=== PATIENT | male | born 1940 | race Caucasian/White ===

== ENCOUNTER 2019-08-16 14:38 | Outpatient (CLI) | payer MEDICARE, MEDICAID, SELFPAY ==
--- NOTE | 2019-08-16 16:30 | CT_ITS ---
WS: [id number] CT of the lumbar spine, additional two-dimensional coronal and sagittal imaging was obtained. 0 Clinical Data: low back pain Comparison: Lumbar spine, 06/13/2019, MRI lumbar spine, 04/04/2019. DLP: 1674.[address] scans at [facility] use at least one of these dose optimization techniques: automat ed exposure control; mA and/or kV adjustment per patient size (includes targeted exams where dose is matched to clinical indication); or iterative reconstruction. Findings: There is a dextroscoliosis with multiple degenerative disc disease from L2-L3 to L5-S1. The re is diffuse osteoporosis. Compression fractures can be seen. There is a retrolisthesis of L4 on L5 of 0.5 cm. The transverse processes SI joints are not remarkable. Degenerative arthritic spurring of all the lumbar vertebral bodies is present. There are laminectomies from L3-L4 through L5-S1. T12-L1: No canal stenosis, disc bulge or foraminal narrowing is seen. L1-L2: There is a degenerative disc with slight bulging along with facet joint arthritis causing mild canal and foraminal stenosis. L2-L3: There is posterior osteoarthritic spurring along with facet joint arthritis causing mild canal and foraminal stenosis. L3-L4: There is posterior osteophyte formation along with facet joint hypertrophy causing mild forami nal and canal stenosis. L4-L5: There is posterior osteophyte formation causing severe foraminal stenosis along with facet usnil nt hypertrophy. L5-S1: No canal stenosis, disc bulge or foraminal narrowing is seen. CT/CT lumbar spine wo con* [id number] Impression: 1. 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 2. Loss of normal lordotic curvature with retrolisthesis of L4 on L5 of 0.5 cm. 3. Multilevel laminectomies from L3-L4 to L5-S1. 4. Multilevel degenerative disc and posterior osteoarthritis causing canal sten osis along with facet joint hypertrophy causing foraminal stenosis.
== END 2019-08-16 14:39 | disposition home or self-care (01) ==
PROVIDERS: Family Provider Nurse Practitioner; PCP Anesthesiology Pain Medicine; Visit Provider Licensed Practical Nurse
DX: M47.816 Spondylosis without myelopathy or radiculopathy, lumbar region (principal); M51.36 Other intervertebral disc degeneration, lumbar region; M81.0 Age-related osteoporosis without current pathological fracture
CPT/HCPCS: 72131; 99213

== ENCOUNTER 2019-09-10 16:37 | Emergency (ER) | payer MEDICARE, MEDICAID, SELFPAY ==
[2019-09-10 16:49] VITALS: BP 126/75; PULSE 71; RESP 16; TEMP 36.8; O2SAT 96; BMI 28.5
--- NOTE | 2019-09-10 16:52 | XR_ITS ---
WS: [id number] XR forearm RT 2V [id number] REASON FOR EXAM: fall/pain FINDINGS: A small chip fracture seen off the proximal head of the radius. The chondrocalcinosis at the wrist and degenerate changes are again seen. The shafts of the ulna and radius are normal. XR/XR forearm RT 2V [id number] IMPRESSION: Small chip fracture off the head of the radius . 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
--- NOTE | 2019-09-10 16:52 | XR_ITS ---
WS: [id number] XR hand RT min 3V* [id number] REASON FOR EXAM: fall/pain FINDINGS: Ankylosing degenerate changes in the carpal bones. Degenerate changes of the distal interphalangeal joints. Remote fracture of the fifth metacarpal. No new fractures of the wrist or hand. 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
--- NOTE | 2019-09-10 16:52 | XR_ITS ---
WS: [id number] XR wrist RT min 3V* [id number] REASON FOR EXAM: fall/pain FINDINGS: Degenerate changes through the carpal bones are seen and there is calcification along the a rticular surfaces of the ulna radius and carpal bones consistent with chondrocalcinosis. There is no definite fractures seen in the wrists. There is a remote fracture of the fifth metacarpal. There is heavy arteriosclerotic changes seen. XR/XR wrist RT min 3V* [id number] IMPRESSION: Remote fracture of the fifth metacarpal Chondrocalcinosis of the wrist. Osteoarthritic changes of the carpal bones Heavy arteriosclerotic changes.
[2019-09-10 19:56] VITALS: O2SAT 96
--- NOTE | 2019-09-10 20:10 | ED_ITS ---
HPI - Fall General: Chief Complaint: Fall Stated Complaint: RIGHT ARM PAIN Time Seen by Provider: 09/10/19 19:54 History of Present Illness: HPI Narrative: Patient comes in today for evaluation of left wrist area after suffering a fall at home. Patient recalls incident and reports tripping. Patient is kind of weak in the legs and has difficulty of ambulation. Patient denies shortness of breath or chest pain. Patient appears well. Patient appears in no pain. Review of Systems General: Reports: 10 or more systems reviewed and unremarkable except in HPI and below Musc: Reports: joint pain PFSH ED PFSH: Social History (Updated 09/10/19 @ 15:51 by Suad Martin LPN) Smoking and tobacco status: current every day smoker Alcohol intake: never Household members: significant other Marital status: Current occupational status: disabled History of recent travel: No Physical Exam Const: COMMON NORMALS: no apparent distress and oriented x3 GENERAL APPEARANCE: cooperative HENMT: COMMON NORMALS: normocephalic, external ears normal, EAC's normal, TM's normal bilaterally and external nose normal HEAD & SCALP: normal to inspection and normocephalic FACE & SINUS: normal facial exam NOSE: external nose normal GENERAL EAR: hearing not grossly impaired EXTERNAL EAR: Yes external ears normal EXTERNAL AUDITORY CANAL: EAC's normal TYMPANIC MEMBRANE: TM's normal bilaterally MOUTH: oral and palatal mucosa normal THROAT: posterior oropharynx normal Eye: COMMON NORMALS: PERRL and EOMs intact bilaterally PUPIL: Yes PERRL Neck/C-Spine: COMMON NORMALS: full ROM and no lymphadenopathy Lymph: LYMPHATIC: no lymphedema noted Chest: COMMONS NORMALS: inspection of chest normal and palpation of chest normal Resp: COMMON NORMALS: normal respiratory effort and clear to auscultation bilaterally AUSCULTATION: clear to auscultation bilaterally Cardio: COMMON NORMALS: regular rate and regular rhythm RATE: regular rate RHYTHM: regular rhythm GI: COMMON NORMALS: normal to inspection, nondistended, normoactive bowel so unds and non-tender : COMMON NORMALS: Yes no CVA tenderness BLADDER/KIDNEY EXAM: Yes no CVA tenderness Back/Pelvis: COMMON NORMALS: no CVA tenderness and thoracic and lumbar spine normal to inspection Extremity: NARRATIVE EXTREMITY EXAM: Tenderness is noted in palpation to the left wrist. Minimal swelling is noted to the wrist. No obvious deformity. GENERAL: Yes edema (minimal left wrist) Neuro: COMMON NORMALS: oriented x3, moves all extremities and no focal motor deficits Psych: COMMON NORMALS: mental status grossly normal and cooperative Skin: COMMON NORMALS: no rashes or lesions noted GENERAL SKIN EXAM: no rashes or lesions noted Course Vital Signs: Vital signs: Vital Signs Temperature 98.2 F 09/10/19 16:49 Pulse Rate 71 09/10/19 16:49 Respiratory Rate 16 09/10/19 16:49 Blood Pressure 126/75 09/10/19 16:49 Pulse Oximetry 96 09/10/19 19:56 MDM - Fall MDM Narrative: Medical decision making narrative: Patient comes in today for complaints of left wrist injury. On exam patient has no deformity. Good pulses. Prompt capillary refill distally. Patient manages movement to the wrist without much difficulty. Differential diagnosis includes sprain, fracture, dislocation. X-ray of the forearm, hand, and wrist on the left upper extremity noted no abnormality except arthritic and degenerative changes. Patient was placed in a elastic bandage for comfort. Patient was recommended to maintain normal activity. With limited use to the hand. Patient reports understanding of care plan and need for follow-up. Discharge Plan Discharge Patient Disposition: Home, Self-Care Clinical Impression: Left wrist injury Qualifiers: Encounter type: initial encounter Qualified Code(s): S69.92XA - Unspecified injury of left wrist, hand and finger(s), initial encounter Condition: Stable Prescriptions: No Action hydrochlorothiazide 50 mg tablet 50 mg PO QDAY RF: 0 nitroglycerin [Nitrostat] 0.4 mg tablet, sublingual 0.4 mg SUBLINGUAL Q5M PRNRF: 0 hydroxyzine HCl 50 mg tablet 50 mg PO .HS RF: 0 pyridoxine (vitamin B6) 50 mg capsule 50 mg PO QDAY RF: 0 tamsulosin 0.4 mg capsule 0.4 mg PO QDAY RF: 0 omeprazole 20 mg capsule,delayed release(DR/EC) 20 mg PO QDAY RF: 0 Eliquis 5 mg tablet 5 mg PO BID RF: 0 senna 8.6 mg capsule 8.6 mg PO ONCE PRNRF: 0 Spiriva with HandiHaler 18 mcg capsule, w/inhalation device 1 cap INHALATION QDAY RF: 0 potassium chloride 10 mEq capsule, extended release 10 meq PO BID RF: 0 Amitiza 24 mcg capsule 24 mcg PO BID RF: 0 fluticasone propionate [Flonase Allergy Relief] 50 mcg/actuation spray,suspension 1 spray INTRANASAL QDAY RF: 0 prednisone 10 mg tablet 10 mg PO QDAY RF: 0 oxycodone 30 mg tablet 30 mg PO TID PRNRF: 0 baclofen 20 mg tablet 20 mg PO TID PRNRF: 0 Bevespi Aerosphere 9-4.8 mcg HFA aerosol inhaler 2 puff INHALATION BID PRNRF: 0 polyethylene glycol 3350 [Miralax] 17 gram/dose powder 17 gm PO QDAY PRNRF: 0 sertraline [Zoloft] 100 mg tablet 200 mg PO DAILY Qty: 60 RF: 2 trazodone 100 mg tablet 300 mg PO .HS Qty: 90 RF: 2 quetiapine [Seroquel] 100 mg tablet 100 mg PO .QHS Qty: 30 RF: 2 amlodipine 10 mg tablet 5 mg PO QDAY Qty: 30 RF: 0 lisinopril 20 mg tablet 20 mg PO QDAY Qty: 30 RF: 0 carvedilol [Coreg] 12.5 mg tablet 12.5 mg PO BID Qty: 60 RF: 0 Discharge Orders: Discharge Order (Routine); Ordered 09/10/19 Ordered By: Augie Dey Referrals: Brisa Jensen FNP-C [Primary Care Provider] - Augie Dey FNP [Emergency Provider] - Discharge Diet: Usual diet Discharge Activity: Increase activity as tolerated Patient Instructions: Wrist Injury (ED) Activity Restrictions/Additional Instructions: Limit activity to wrist Wear elastic wrap for comfort Follow-up with primary care as needed Return to ER for worsening pain or fever Coding Level of Care Code ED Coffee Urn Attendant for Katiuska Carter
[2019-09-10 20:22] VITALS: BP 121/90; PULSE 85; RESP 17; O2SAT 97
== END 2019-09-10 20:22 | disposition home or self-care (01) ==
PROVIDERS: Emergency Provider Nurse Practitioner Family; Family Provider Nurse Practitioner; PCP Nurse Practitioner
DX: S69.92XA Unspecified injury of left wrist, hand and finger(s), initial encounter (principal); F17.200 Nicotine dependence, unspecified, uncomplicated; W01.0XXA Fall on same level from slipping, tripping and stumbling without subsequent striking against object, initial encounter; Y92.009 Unspecified place in unspecified non-institutional (private) residence as the place of occurrence of the external cause
CPT/HCPCS: 73090; 73110; 73130; 99281; 99283

== ENCOUNTER 2019-09-25 12:27 | Inpatient (IN) | payer MEDICARE, MEDICAID, SELFPAY ==
[2019-09-25] VITALS (11 sets, daily range): BP systolic 108–165; BP diastolic 51–72; PULSE 66–75; RESP 15–20; TEMP 36.6–37.4; O2SAT 92–99; BMI 24.4
--- NOTE | 2019-09-25 12:31 | XR_ITS ---
WS: [id number] XR chest 1V portable [id number] REASON FOR EXAM: cp FINDINGS: Coronary bypass changes are noted with borderline cardiomegaly. Arteriosclerotic changes in the arch of the aorta. Along the minor fissure there appears to be slight bowing now the fissures blanco ggesting low-grade atelectasis not noted previous exam May 30, 2019. There is no pneumothorax seen no pulmonary edema or pneumonia. XR/XR chest 1V portable [id number] IMPRESSION: Coronary bypass findings.
--- NOTE | 2019-09-25 12:33 | ECG_ITS ---
Measurements Intervals [place] Rate: 67 P: 56 NE: 217 QRS: 37 QRSD: 125 T: 42 QT: 457 QTc: 486 SINUS RHYTHM WITH FIRST DEGREE AV BLOCK POSSIBLE RIGHT VENTRICULAR CONDUCTION DELAY [RSR (QR) IN V1/V2] PROLONGED QT INTERVAL Compared to ECG 05/30/2019 21:45:08 Sinus bradycardia no longer present Incomplete right bundle-branch block no longer present Electronically Signed On 09-26-2019 12:41:38 CDT by Stefano Mcadams [email or web address]
--- NOTE | 2019-09-25 12:45 | W.ED.WEAKNES ---
HPI - Weakness General: Chief complaint: Weakness Stated complaint: SOB, Weakness, Cough Time Seen by Provider: 09/25/19 12:31 Source: patient and EMS Mode of arrival: EMS Limitations: altered mental status History of Present Illness: HPI Narrative: 79-year-old male is sent in him by family for generalized weakness along with cough and fever over the last week to 2 weeks. Patient is febrile here of 99.5. He does have some slight confusion. He has had a cough. Denies any vomiting or diarrhea. Denies any worsening improving factors. MD Complaint: generalized weakness Onset (ago): day(s) Associated symptoms: Denies chest pain, chills, dysuria, easy bruising, fever(s), headache(s), nausea or vomiting Review of Systems Const: Denies: fever, chills, body aches or change in appetite Eyes: Denies: blurry vision or eye discomfort ENMT: Denies: throat pain or dental pain Card: Denies: chest pain Resp: Denies: shortness of breath GI: Denies: abdominal pain, nausea, vomiting or diarrhea : Denies: painful urination Musc: Denies: neck pain or back pain Skin/Breast: Denies: rash Neuro: Denies: headache Psych: Denies: depression Jm/Lymph: Denies: easy bruising All/Imm: Denies: hives PFSH ED PFSH: Social History Smoking and tobacco status: former smoker Alcohol intake: never Household members: significant other Marital status: Current occupational status: disabled History of recent travel: No Physical Exam Const: GENERAL APPEARANCE: in distress and disheveled HENMT: COMMON NORMALS: normocephalic and head/scalp atraumatic HEAD & SCALP: normocephalic and atraumatic Eye: COMMON NORMALS: PERRL and EOMs intact bilaterally PUPIL: Yes PERRL Neck/C-Spine: COMMON NORMALS: full ROM and supple Chest: COMMONS NORMALS: inspection of chest normal and palpation of chest normal Resp: COMMON NORMALS: normal respiratory effort, no retractions, no use of accessory muscles and clear to auscultation bilaterally AUSCULTATION: clear to auscultation bilaterally Cardio: COMMON NORMALS: regular rate, regular rhythm and no murmurs RATE: regular rate RHYTHM: regular rhythm GI: COMMON NORMALS: normal to inspection, nondistended, normoactive bowel sounds, soft to palpation, non-tender and no masses PALPATION: Yes soft Extremity: COMMON NORMALS: normal to inspection and full ROM Neuro: COMMON NORMALS: moves all extremities and no focal motor deficits Psych: COMMON NORMALS: thought process normal and cooperative APPEARANCE: Yes disheveled THOUGHT PROCESS: normal thought process OTHER: confused Skin: COMMON NORMALS: no rashes or lesions noted and no wounds GENERAL SKIN EXAM: no rashes or lesions noted Course Vital Signs: Vital signs: Vital Signs Temperature 99.3 F 09/25/19 12:29 Pulse Rate 75 09/25/19 14:00 Respiratory Rate 15 09/25/19 14:00 Blood Pressure 108/55 09/25/19 14:00 Pulse Oximetry 97 09/25/19 14:00 MDM - Weakness MDM Narrative: Medical decision making narrative: Anurag presents here with generalized weakness. He also has cough and congestion but no signs of influenza or pneumonia. Patient is dehydrated as well. Spoke to hospitalist and will admit for observation for his weakness as he is unable to get up and take care of himself at this time. Lab Data: Labs: Lab Results 09/25/19 09/25/19 09/25/19 Range/Units 12:45 13:00 13:00 WBC 11.3 H (4.0-10.0) 10^3/ uL RBC 4.24 (4.1-5.3) 10^6/u L Hgb 12.3 (11.7-16.6) g/dL Hct 38.1 L (42.0-52.0) % MCV 89.9 (80-94) fL MCH 29.0 (28.0-34.0) pg MCHC 32.3 (30.0-36.0) g/dL RDW 14.8 (12.1-15.1) % Plt Count 261 (130-400) 10^3/c mm MPV 10.0 (7.4-10.4) fL Neut % (Auto) 77.4 % Lymph % (Auto) 13.6 % Tama % (Auto) 7.7 % Eos % (Auto) 0.6 % Baso % (Auto) 0.4 % Neut # (Auto) 8.8 H (1.8-7.7) 10^3/u L Lymph # (Auto) 1.5 (0.8-4.8) 10^3/u L Tama # (Auto) 0.9 (0.2-0.9) 10^3/u L Eos # (Auto) 0.1 (0.0-0.8) 10^3/u L Baso # (Auto) 0.1 (0.0-0.1) 10^3/u L Nucleated RBC % (a uto) 0 % Nucleated RBCs # 0.0 /100WBC Specimen Type Arterial Sample Site Radial, left ABG pH 7.58 H* (7.35-7.45) ABG pCO2 30.2 L (35-45) mmHg ABG pO2 61.8 L (80.0-100.0) mmH g ABG HCO3 28.1 H (22-26) mmol/L ABG Base Excess 6.5 H (-2.0-2.0) mmol/ L Ron Test Pos Hematocrit 38.7 L (42-52) % O2 Delivery Device Room air FiO2 21.0 % Supervisor Beater Room ID [email or web address] Sodium 137 (136-145) mmol/L Potassium 4.5 (3.5-5.1) mmol/L Chloride 95 L (98-107) mmol/L Carbon Dioxide 30 H (22-29) mmol/L Anion Gap 16.5 (5-19) BUN 33 H (8-23) mg/dL Creatinine 1.2 (0.7-1.2) mg/dL Glucose 142 H (65-115) mg/dL Calculated Osmolal ity 284 L (285-295) mOsm/k g Lactate (0.5-2.2) mmol/L Calcium 10.2 (8.5-10.5) mg/dL Total Bilirubin 1.0 (0.15-1.2) mg/dL AST 11 (0-40) U/L ALT 6 (0-41) U/L Alkaline Phosphata se 89 (40-130) IU/L NT-Pro-B Natriuret Pep 177 (0-450) pg/mL Total Protein 8.3 (6.6-8.7) g/dL Albumin 3.3 L (3.5-5.2) g/dL Globulin 5.0 H (1.3-4.6) g/dL Urine Color (Yellow) Urine Appearance (CLEAR) Urine pH (5-7) Ur Specific Gravit y (1.005-1.030) Urine Protein (Negative) Urine Glucose (UA) (Normal) Urine Ketones (Negative) Urine Blood (Negative) Urine Nitrate (Negative) Urine Bilirubin (NEGATIVE) Urine Urobilinogen (Negative) mg/dL Ur Leukocyte Kamini ase (Negative) Urine RBC (0-2) /hpf Urine WBC (0-5) /hpf Ur Squamous Epith Cells (0-5) Urine Bacteria (NONE) Hyaline Casts Other Casts /lpf Urine Mucus Influenza Type A A g (Negative) POC Influenza B Ag (Negative) 09/25/19 09/25/19 09/25/19 Range/Units 13:00 13:03 14:23 WBC (4.0-10.0) 10^3/ uL RBC (4.1-5.3) 10^6/u L Hgb (11.7-16.6) g/dL Hct (42.0-52.0) % MCV (80-94) fL MCH (28.0-34.0) pg MCHC (30.0-36.0) g/dL RDW (12.1-15.1) % Plt Count (130-400) 10^3/c mm MPV (7.4-10.4) fL Neut % (Auto) % Lymph % (Auto) % Tama % (Auto) % Eos % (Auto) % Baso % (Auto) % Neut # (Auto) (1.8-7.7) 10^3/u L Lymph # (Auto) (0.8-4.8) 10^3/u L Tama # (Auto) (0.2-0.9) 10^3/u L Eos # (Auto) (0.0-0.8) 10^3/u L Baso # (Auto) (0.0-0.1) 10^3/u L Nucleated RBC % (a uto) % Nucleated RBCs # /100WBC Specimen Type Sample Site ABG pH (7.35-7.45) ABG pCO2 (35-45) mmHg ABG pO2 (80.0-100.0) mmH g ABG HCO3 (22-26) mmol/L ABG Base Excess (-2.0-2.0) mmol/ L Ron Test Hematocrit (42-52) % O2 Delivery Device FiO2 % Supervisor Beater Room ID Sodium (136-145) mmol/L Potassium (3.5-5.1) mmol/L Chloride (98-107) mmol/L Carbon Dioxide (22-29) mmol/L Anion Gap (5-19) BUN (8-23) mg/dL Creatinine (0.7-1.2) mg/dL Glucose (65-115) mg/dL Calculated Osmolal ity (285-295) mOsm/k g Lactate 2.7 H (0.5-2.2) mmol/L Calcium (8.5-10.5) mg/dL Total Bilirubin (0.15-1.2) mg/dL AST (0-40) U/L ALT (0-41) U/L Alkaline Phosphata se (40-130) IU/L NT-Pro-B Natriuret Pep (0-450) pg/mL Total Protein (6.6-8.7) g/dL Albumin (3.5-5.2) g/dL Globulin (1.3-4.6) g/dL Urine Color Dark yellow (Yellow) Urine Appearance Clear (CLEAR) Urine pH 5 (5-7) Ur Specific Gravit y 1.020 (1.005-1.030) Urine Protein Neg (Negative) Urine Glucose (UA) Norm (Normal) Urine Ketones 1+ H (Negative) Urine Blood 2+ H (Negative) Urine Nitrate Negative (Negative) Urine Bilirubin 1+ H (NEGATIVE) Urine Urobilinogen 4 H (Negative) mg/dL Ur Leukocyte Kamini ase Negative (Negative) Urine RBC 10-15 H (0-2) /hpf Urine WBC 5-10 H (0-5) /hpf Ur Squamous Epith Cells 0-4 H (0-5) Urine Bacteria 2+ H (NONE) Hyaline Casts 5-10 H Other Casts 0-4 /lpf Urine Mucus Trace Influenza Type A A g Negative (Negative) POC Influenza B Ag Negative (Negative) Imaging Data^: CXR: Radiologist's impression: [address] [address] XRay Report Signed Patient: Anurag Rios Unit #: [id number] : 1940 Age/Sex: 79 / M ADM Date: 09/25/19 Loc: ER Room/Bed: Attending Dr: Ordering Provider/Ordering MD: Gaston Ruiz MD Date of Service: 09/25/19 Procedure(s): XR chest 1V portable [id number] Accession Number(s): [id number] Report Number: [id number] WS: [id number] XR chest 1V portable [id number] REASON FOR EXAM: cp FINDINGS: Coronary bypass changes are noted with borderline cardiomegaly. Arteriosclerotic changes in the arch of the aorta. Along the minor fissure there appears to be slight bowing now the fissures suggesting low-grade atelectasis not noted previous exam May 30, 2019. There is no pneumothorax seen no pulmonary edema or pneumonia. XR/XR chest 1V portable [id number] IMPRESSION: Coronary bypass findings. EKG Data^: EKG 1: Attestation: I personally reviewed and interpreted this EKG as follows: EKG interpretation date: 09/25/19 EKG interpretation time: 13:06 Interpretation: nsr hr [address] or t wave abnormalities qrs 125 qtc 473 Discharge Plan Discharge Patient Disposition: Admitted As Inpatient Clinical Impression: Generalized weakness Condition: Stable Referrals: Brisa Jensen FNP-C [Primary Care Provider] - Coding Level of Care Code ED [employer] Warden for Chg Fwd Exam Comprehensive
[2019-09-25] MEDS: sodium chloride 0.9% 1,000 ML 999 ML IV ×2 (12:53→14:28)
[2019-09-25] MEDS: acetaminophen 325 mg Tablet 650 MG PO (12:56)
[2019-09-25 12:58] LABS: ABG PCO2 30.2 mmHg (35-45); ABG PH Result 7.58 (7.35-7.45); Arterial Blood Gas Hematocrit 38.7 % (42-52); Base Excess ABG 6.5 mmol/L (-2.0-2.0); Blood Gas Allen Test Pos; Blood Gas Operator Identificat amh; Blood Gas Sample Site Radial, left; Blood Gas Sample Type Arterial; HCO3 ABG 28.1 mmol/L (22-26); Oxygen Device ROOM AIR; PO2 ABG 61.8 mmHg (80.0-100.0)
[2019-09-25 13:17] LABS: Basophils # 0.1 10^3/uL (0.0-0.1); Basophils % 0.4 %; Eosinophils # 0.1 10^3/uL (0.0-0.8); Eosinophils % 0.6 %; Hematocrit 38.1 % (42.0-52.0); Hemoglobin 12.3 g/dL (11.7-16.6); Lymphocytes # 1.5 10^3/uL (0.8-4.8); Lymphocytes % 13.6 %; Mean Corpuscular HGB Conc 32.3 g/dL (30.0-36.0); Mean Corpuscular Volume 89.9 fL (80-94); Monocytes # 0.9 10^3/uL (0.2-0.9); Monocytes % 7.7 %; Neutrophils # 8.8 10^3/uL (1.8-7.7); Neutrophils % 77.4 %; Nucleated Red Blood Cells % 0 %; Platelet Count 261 10^3/cmm (130-400); Red Blood Count 4.24 10^6/uL (4.1-5.3); Red Cell Distribution Width 14.8 % (12.1-15.1); White Blood Count 11.3 10^3/uL (4.0-10.0)
[2019-09-25 13:36] LABS: Lactate (Lactic Acid level) 2.7 mmol/L (0.5-2.2)
[2019-09-25 13:43] LABS: Alanine Aminotransferase 6 U/L (0-41); Albumin Level 3.3 g/dL (3.5-5.2); Alkaline Phosphatase 89 IU/L (40-130); Anion Gap 16.5 (5-19); Aspartate Amino Transferase 11 U/L (0-40); Blood Urea Nitrogen 33 mg/dL (8-23); Calcium 10.2 mg/dL (8.5-10.5); Carbon Dioxide 30 mmol/L (22-29); Chloride 95 mmol/L (98-107); Glucose 142 mg/dL (65-115); NT Pro B Type Natriuretic Pept 177 pg/mL (0-450); Osmolality Calculated 284 mOsm/kg (285-295); Potassium 4.5 mmol/L (3.5-5.1); Sodium 137 mmol/L (136-145); Total Protein 8.3 g/dL (6.6-8.7)
[2019-09-25 13:44] LABS: Influenza A by IFA Negative (Negative); Influenza B by IFA Negative (Negative)
[2019-09-25 14:41] LABS: Add Urine Microscopic? YES; Bilirubin Urine 1+ (NEGATIVE); Blood Urine 2+ (Negative); Glucose Urine UA Norm (Normal); Ketones Urine 1+ (Negative); Leukocyte Esterase Urine Negative (Negative); Nitrate Urine Negative (Negative); Protein Urine Neg (Negative); Urine Appearance Clear (CLEAR); Urine Color Dark Yellow (Yellow); Urobilinogen Urine 4 mg/dL (Negative); pH Urine 5 (5-7)
[2019-09-25 14:44] LABS: Bacteria Urine 2+; Mucus Urine TRACE; Squamous Epithelial Cell Urine 0-4 (0-5)
[2019-09-25 14:46] LABS: Add Urine Culture? Yes; Other Casts Urine 0-4 /lpf
--- NOTE | 2019-09-25 15:50 | CTR_ITS ---
PROCEDURE INFORMATION: Exam: CT Chest Without Contrast Exam date and time: 09/25/2019 5:17 PM Age: 79 years old Clinical indication: Abdominal tenderness; Shortness of breath; Additional info: Copd/pna TECHNIQUE: Imaging protocol: Computed tomography of the chest without contrast. Total DLP: 2596.09 mGy-cm Radiation optimization: All CT scans at this facility use at least one of these dose optimization techniques: automated exposure control; mA and/or kV adjustment per patient size (includes targeted exams where dose is matched to clinical indication); or iterative reconstruction. COMPARISON: No relevant prior studies available. FINDINGS: Limitations: Study is somewhat limited by patient motion. Lungs: There is some platelike atelectasis in the posterior right upper lobe and along the upper end of the major fissure and also some minimal platelike atelectasis in the anterior medial right middle lobe. Lungs are otherwise clear. Pleural space: Unremarkable. No pneumothorax. No pleural effusion. Heart: Sternotomy wires and mediastinal surgical clips are present, consistent with previous coronary arterial bypass grafting. Mediastinum: There is mild diffuse thickening of the esophagus which could represent esophagitis. Aorta: There are atherosclerotic changes in the aortic arch without evidence of aneurysm. Lymph nodes: Unremarkable. No enlarged lymph nodes. Bones/joints: There are degenerative changes in the thoracic spine. Soft tissues: Unremarkable. IMPRESSION: Subsegmental atelectasis. No acute finding in the chest PROCEDURE INFORMATION: Exam: CT Abdomen And Pelvis Without Contrast Exam date and time: 09/25/2019 5:17 PM Age: 79 years old Clinical indication: Abdominal tenderness; Shortness of breath; Additional info: Copd/pna TECHNIQUE: Imaging protocol: Computed tomography of the abdomen and pelvis without contrast. Total DLP: 2596.09 mGy-cm Radiation optimization: All CT scans at this facility use at least one of these dose optimization techniques: automated exposure control; mA and/or kV adjustment per patient size (includes targeted exams where dose is matched to clinical indication); or iterative reconstruction. COMPARISON: No relevant prior studies available. FINDINGS: Limitations: The absence of intravenous contrast lessens the sensitivity of this study for solid organ abnormalities. Study somewhat limited due to streak artifact created by the patient being scanned with the arms at the sides. Liver: There is no focal abnormality within the liver. Gallbladder and bile ducts: There has been a cholecystectomy. Pancreas: The pancreas is normal. Spleen: The spleen is normal. Adrenals: The adrenal glands are normal. The adrenal glands are normal. Kidneys and ureters: Focal calcification in the medial aspect of the right kidney is more likely a vascular calcification than a nonobstructing stone.There is no evidence of hydronephrosis. There is no stone along the course of either ureter. Stomach and bowel: There is a small lipoma of the duodenum. There is no evidence of colitis/diverticulitis. Appendix: Not identifiedThe aorta demonstrates moderate atherosclerotic calcification. Intraperitoneal space: Unremarkable. No free air. No significant fluid collection. Vasculature: Unremarkable. No abdominal aortic aneurysm. Lymph nodes: Unremarkable. No enlarged lymph nodes. Bladder: Unremarkable as visualized. Reproductive: The prostate gland demonstrates nonspecific parenchymal calcifications. Bones/joints: The lumbar spine demonstrates marked degenerative changes at multiple levels. There is wide laminectomy from L3 through L5. Soft tissues: Unremarkable. CT/CT chest abd pel wo con IMPRESSION: No acute abnormality. Radiation Dose CTDIVOL = (mGy): DLP = 2596.09~2596.09 (mGy-cm)
--- NOTE | 2019-09-25 16:11 | PC.NURSE ---
PATIENT ON FLOOR AND TRANSFERRED FROM [facility] [facility] TO BED. PATIENT IS UNABLE TO PROVIDE HISTORY BUT ANSWERS QUESTIONS AND FOLLOWS DIRECTIONS APPROPRIATELY. PATIENT STATES I'VE BEEN LIVING WITH THIS GIRL AND SHE TAKES CARE OF ME. PATIENT CANNOT ANSWER WHO THIS GIRL IS OR WHAT HER NAME IS.
--- NOTE | 2019-09-25 17:03 | P.HP_ITS ---
Providers/Chief Complaint Admitting Physician: Josias Busby MD Primary Care Provider: Brisa Jensen, BLIND SLAT STAPLING MACHINE OPERATOR-C Chief Complaint: SOB, Weakness, Cough History of Present Illness Anurag Rios is a 79 year old male with past medical history of CAD, CHF of diastolic type, hypertension, DVT on Eliquis, peripheral vascular disease, COPD, GERD, CVA, chronic back pain for which he is on chronic opiates, arthritis, decubitus ulcer, history of SBO in the past, CAD post CABG who was brought into the ER today because of generalized weakness. Patient is a very poor historian and I have tried calling the next of kin who is his friend/plate drying machine tender but has not been able to get in touch. As per the patient patient has been feeling generalized weakness getting worse for last 4 months. He is complaining of constipation with last bowel movement around 4 to 5 days ago along with nausea, vomiting and abdominal pain. He states he is not able to eat anything. He is also complaining of cough without any expectoration but denies any fever, headache, palpitations, shortness of breath. He states he thinks he is swollen all over his body. Review of Systems General: Reports: ROS unobtainable due to mental status Medications/Allergies Home Medications Medication Instructions Recorded Confirmed Last Taken Type Seroquel 100 mg PO BEDTIME 09/25/19 09/25/19 09/24/19 History albuterol sulfate [ProAir HFA] 2 puff INHALATION QID PRN 09/25/19 09/25/19 Unknown History amlodipine 10 mg PO DAILY 09/25/19 09/25/19 09/24/19 History furosemide [Lasix] 40 mg PO BID 09/25/19 09/25/19 Unknown History lisinopril 20 mg PO DAILY 09/25/19 09/25/19 09/24/19 History multivitamin [Multiple Vitamins] 1 tab PO DAILY 09/25/19 09/25/19 Unknown History trazodone 300 mg PO BEDTIME PRN 09/25/19 09/25/19 09/24/19 History Allergies Allergy/AdvReac Type Severity Reaction Status Date / Time hydromorphone Allergy Mild hives Verified 09/10/19 15:46 PFSH Acute PFSH: Medical History CAD (coronary artery disease) Chronic prescription opiate use Diastolic heart failure DVT (deep venous thrombosis) Generalized anxiety disorder Hx of cervical spinal arthrodesis Hypertension Intervertebral disc disorder with radiculopathy of lumbosacral region Lumbar stenosis with neurogenic claudication Major depressive disorder, recurrent severe without psychotic features Peripheral vascular disease Sleep apnea, unspecified Unspecified dementia without behavioral disturbance Surgical History History of cervical spinal surgery [facility] C6-C7 laminectomy/fusion/fixation History of heart bypass surgery (~2007) History of hernia surgery 4x History of lumbar surgery [facility]. L3-L4, L4-L5, L5-S1 decompression Hx of CABG Hx of cholecystectomy Social History Smoking and tobacco status: former smoker Alcohol intake: never Household members: significant other Marital status: Current occupational status: disabled History of recent travel: No Vitals/I&O/Wt Last Vital Signs Temp 97.8 F 09/25/19 16:07 Pulse 66 09/25/19 16:07 Resp 18 09/25/19 16:07 BP 136/72 09/25/19 16:07 Pulse Ox 97 09/25/19 16:07 09/25/19 09/25/19 09/25/19 06:59 14:59 22:59 Intake Total 1000 / 1000 Balance 1000 / 1000 Weight last 48 hrs Weight 81.647 kg Physical Exam Narrative: EXAM NARRATIVE: General: No acute distress, AO x2, dehydrated HEENT: PERRLA, pupils bilaterally equal and reactive Chest: Normal vesicular breath sounds, no added sounds, equal good air entry bilaterally CVS: S1-S2 regular, no murmurs, no tachycardia, no gallops, no rubs Abdomen: No pallor no icterus tender in right lower quadrant, guarding present, no rebound tenderness, bowel sounds sluggish, no organomegaly. Neuro: No focal deficits, no facial deformity, AO x3, power 5/5 in all limbs Data : 09/25/19 13:00 09/25/19 13:00 Micro: Microbiology 09/25/19 13:00 Blood Culture - Preliminary Blood SPECIMEN COLLECTED 09/25/19 13:05 Blood Culture - Preliminary Blood SPECIMEN COLLECTED A&P Assessment and plan (1) Generalized weakness: Status: Acute Code(s): R53.1 - Weakness (2) CAD (coronary artery disease): Status: Acute Code(s): I25.10 - Atherosclerotic heart disease of [place] coronary artery without angina pectoris (3) Diastolic heart failure: Status: Acute Code(s): I50.30 - Unspecified diastolic (congestive) heart failure (4) DVT (deep venous thrombosis): Status: Acute Code(s): I82.409 - Acute embolism and thrombosis of unspecified deep veins of unspecified lower extremity (5) Hypertension: Status: Acute Code(s): I10 - Essential (primary) hypertension (6) Peripheral vascular disease: Status: Acute Code(s): I73.9 - Peripheral vascular disease, unspecified (7) Chronic prescription opiate use: Status: Acute Code(s): Z79.891 - 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 (8) Unspecified dementia without behavioral disturbance: Status: Acute Code(s): F03.90 - Unspecified dementia without behavioral disturbance (9) Major depressive disorder, recurrent severe without psychotic features: Status: Acute Code(s): F33.2 - Major depressive disorder, recurrent severe without psychotic features (10) SBO (small bowel obstruction): Status: Acute Code(s): K56.609 - Unspecified intestinal obstruction, unspecified as to partial versus complete obstruction Additional A&P Information Generalized weakness: Most likely due to poor oral intake as evident from general examination and his labs which are concerning for elevated BUN, decreased chloride and elevated bicarb levels. Patient has been afebrile since admission, mild leukocytosis of 11,000, urinalysis is benign, flu is negative. Check procalcitonin, CT chest to rule out any consolidation, CT abdomen pelvis to rule out SBO, TSH, blood cultures. We will hold off on giving any antibiotics for now. Patient was given on 3 L IV fluids in the ER. We will start normal saline at 50 cc/h. Diastolic heart failure: Last echo in 2018 shows an EF of 66% with no other WMA with grade 1 diastolic dysfunction, trace AR, trace MR, moderate LVH. Patient looks a little dehydrated right now, proBNP 177. Normal saline at 50 cc/h. Hold diuretics for now. CAD: Post CABG: Continue carvedilol at home dose. Hypertension: Blood pressure well maintained right now. Patient takes lisinopril along with carvedilol and Lasix at home. As stated above we will continue carvedilol to avoid refractory tachycardia but will hold off on lisinopril right now. Can reintroduce as per the blood pressure monitoring. Chronic opiate use: As per the chart patient has a pain management doctor. As per the chart he takes 30 to 60 mg oxycodone IR every 4 to every 6 hours as needed. To avoid withdrawal we will keep him on oxycodone 30 mg every 6 hours for now. History of DVT: Patient is on Eliquis. We will have to confirm with a plate drying machine tender when was it started and how long ago was restarted. Lower limb Dopplers to rule out DVT for now. Continue chronic medications like Seroquel and sertraline for now. We will change medications as per the clinical course and results of the examinations. PT evaluation. N.p.o. except meds for now DNR/DNI as per the old records. Eliquis will also work for DVT prophylaxis. Dispol: Most likely SNF placement given severe generalized weakness. Attestations Medical Necessity Statement*: Generalized weakness under evaluation. Admission for more than 2 midnights. Time Spent in Patient Care: Greater than 35 minutes Coding Level of Care Code Acute Document Management Specialist for [facility] Fwd Diagnoses Generalized weakness R53.1 CAD (coronary artery disease) I25.10 Diastolic heart failure I50.30 DVT (deep venous thrombosis) I82.409 Hypertension I10 Peripheral vascular disease I73.9 Chronic prescription opiate use Z79.891 Unspecified dementia without behavioral disturbance F03.90 Major depressive disorder, recurrent severe without psychotic features F33.2 SBO (small bowel obstruction) K56.609
[2019-09-25 17:24] LABS: Procalcitonin 0.14 ng/mL (0-0.5)
[2019-09-25 17:37] LABS: Iron 20 ug/dL (59-158); Percent Saturation 9.2 % (20-50); Total Iron Binding Capacity 217 mcg/dl; Unsaturated Iron Binding 197 ug/dL (112-347)
[2019-09-25] MEDS: sodium chloride 0.9% 1,000 ML 75 ML IV (18:20)
[2019-09-25] MEDS: famotidine 20 mg/2 mL INJ IVP (18:20)
[2019-09-25] MEDS: apixaban 5 mg Tablet PO (18:21)
[2019-09-25] MEDS: carvedilol 12.5 mg Tablet PO (18:22)
[2019-09-25 18:53] LABS: Amphetamines Screen Urine Negative (Negative); Barbiturates Screen Urine Negative (Negative); Benzodiazepines Screen Urine Negative (Negative); Cocaine Screen Urine Negative (Negative); Opiate Screen Urine Negative (Negative); PCP Screen Urine Positive (Negative); THC Screen Urine Negative (Negative)
[2019-09-25] MEDS: oxyCODONE IR 30 mg Tablet PO (19:32)
--- NOTE | 2019-09-25 19:38 | PC.NURSE ---
Addendum entered by Yenifer Guillermo 09/25/19 19:54: pts partner/caregiver states- pt fell approximately 3 weeks ago, pt came to [facility] [place] to get XRay. XRay showed crack or chip, she is not sure. due to pts lack of mobility and caregiver not being able to get pt around she could not bring him back again to get it taken care of. Original Note: pts partner/caregiver states the following -pt would like to be a DNR as he has expressed to her in the past and as per old records -pt took eliquis last night and has taken eliquis for years. -depending on how mobile pt is once he gets better he may or may not have to go to a half-way. - pts altered mental status comes and goes, sometimes AMS last for days, sometimes he is okay for days.
[2019-09-25] MEDS: ipratropium-albuterol 3 mL Neb INHALATION (20:57)
[2019-09-25] MEDS: budesonide 0.5 mg/2 mL Neb INHALATION (20:57)
[2019-09-25] MEDS: lactulose oral liq 20 gm/30 mL UDC 10 GM PO (22:13)
[2019-09-25] MEDS: quetiapine 100 mg Tablet PO (22:14)
[2019-09-25] MEDS: polyethylene glycol 3350 Pkt 17 gm PO (22:14)
[2019-09-25] MEDS: pneumococcal (23 valent) SDV 0.5 mL IM (22:15)
[2019-09-26] VITALS (15 sets, daily range): BP systolic 112–144; BP diastolic 62–80; PULSE 64–75; RESP 17–18; TEMP 36.8–37.6; O2SAT 92–97
[2019-09-26] MEDS: ipratropium-albuterol 3 mL Neb INHALATION ×4 (02:55→21:54)
[2019-09-26] MEDS: sodium chloride 0.9% 1,000 ML 75 ML IV ×2 (06:07→19:39)
[2019-09-26] MEDS: famotidine 20 mg/2 mL INJ IVP ×2 (06:07→16:31)
[2019-09-26 07:37] LABS: Basophils % 0.3 %; Eosinophils # 0.2 10^3/uL (0.0-0.8); Eosinophils % 2.2 %; Hematocrit 35.5 % (42.0-52.0); Hemoglobin 11.1 g/dL (11.7-16.6); Lymphocytes # 1.5 10^3/uL (0.8-4.8); Lymphocytes % 16.4 %; Mean Corpuscular HGB Conc 31.3 g/dL (30.0-36.0); Mean Corpuscular Volume 92.7 fL (80-94); Mean Platelet Volume 9.9 fL (7.4-10.4); Monocytes # 0.9 10^3/uL (0.2-0.9); Monocytes % 9.6 %; Neutrophils # 6.5 10^3/uL (1.8-7.7); Neutrophils % 71.2 %; Nucleated Red Blood Cells % 0 %; Platelet Count 232 10^3/cmm (130-400); Red Blood Count 3.83 10^6/uL (4.1-5.3); Red Cell Distribution Width 14.9 % (12.1-15.1); White Blood Count 9.2 10^3/uL (4.0-10.0)
[2019-09-26] MEDS: oxyCODONE IR 30 mg Tablet PO ×2 (07:51→17:12)
[2019-09-26] MEDS: ondansetron 2 mg/ML SDV 2 mL 4 MG IVP (07:51)
[2019-09-26 07:52] LABS: Alanine Aminotransferase < 5 U/L (0-41); Albumin Level 3.3 g/dL (3.5-5.2); Alkaline Phosphatase 76 IU/L (40-130); Aspartate Amino Transferase 12 U/L (0-40); Blood Urea Nitrogen 26 mg/dL (8-23); Calcium 9.9 mg/dL (8.5-10.5); Carbon Dioxide 27 mmol/L (22-29); Chloride 102 mmol/L (98-107); Glucose 163 mg/dL (65-115); Osmolality Calculated 290 mOsm/kg (285-295); Sodium 140 mmol/L (136-145); Total Bilirubin 0.7 mg/dL (0.15-1.2); Total Protein 7.3 g/dL (6.6-8.7)
[2019-09-26] MEDS: budesonide 0.5 mg/2 mL Neb INHALATION ×2 (09:26→21:54)
[2019-09-26] MEDS: apixaban 5 mg Tablet PO ×2 (09:28→17:13)
[2019-09-26] MEDS: sertraline 100 mg Tablet 200 MG PO (09:28)
[2019-09-26] MEDS: carvedilol 12.5 mg Tablet PO ×2 (09:28→17:13)
[2019-09-26] MEDS: lactulose oral liq 20 gm/30 mL UDC 10 GM PO (12:15)
[2019-09-26] MEDS: polyethylene glycol 3350 Pkt 17 gm PO (12:16)
--- NOTE | 2019-09-26 16:18 | PM.PN ---
Subjective Subjective: Interval history: No acute events overnight. Labs noted. On examination today patient is a lot more comfortable, alert and conversive. Complaining of pain in his right lower abdomen states he has not had bowel movements for last 1 week. Bowel regimen was given yesterday still patient did not have any bowel movements. He denies of having any nausea, vomiting, headache, dizziness, palpitations. Vitals/I&O/Wt Last Vital Signs Temp 99.6 F 09/26/19 15:23 Pulse 68 09/26/19 15:56 Resp 18 09/26/19 15:56 BP 134/69 09/26/19 15:23 Pulse Ox 96 09/26/19 15:56 09/26/19 09/26/19 09/26/19 06:59 14:59 22:59 Intake Total 883.75 / 1883.75 840 / 840 Output Total 580 / 780 450 / 450 Balance 303.75 / 1103.75 390 / 390 Weight last 48 hrs Weight 93.695 kg Weight 81.647 kg Physical Exam Narrative: EXAM NARRATIVE: General: No acute distress, AO x2, dehydrated HEENT: PERRLA, pupils bilaterally equal and reactive Chest: Normal vesicular breath sounds, no added sounds, equal good air entry bilaterally CVS: S1-S2 regular, no murmurs, no tachycardia, no gallops, no rubs Abdomen: No pallor no icterus tender in right lower quadrant, guarding present, no rebound tenderness, bowel sounds sluggish, no organomegaly. Neuro: No focal deficits, no facial deformity, AO x3, power 5/5 in all limbs Data : 09/26/19 07:25 09/26/19 07:25 Micro: Microbiology 09/25/19 13:05 Blood Culture - Preliminary Blood NEGATIVE TO DATE 09/25/19 13:00 Blood Culture - Preliminary Blood NEGATIVE TO DATE 09/26/19 00:35 MRSA Culture - Final Nose 09/25/19 14:23 Legionella Urinary Antigen - Final Urine,Clean Catch A&P Assessment and plan (1) Generalized weakness: Status: Acute Code(s): R53.1 - Weakness (2) CAD (coronary artery disease): Status: Acute Code(s): I25.10 - Atherosclerotic heart disease of [place] coronary artery without angina pectoris (3) Diastolic heart failure: Status: Acute Code(s): I50.30 - Unspecified diastolic (congestive) heart failure (4) DVT (deep venous thrombosis): Status: Acute Code(s): I82.409 - Acute embolism and thrombosis of unspecified deep veins of unspecified lower extremity (5) Hypertension: Status: Acute Code(s): I10 - Essential (primary) hypertension (6) Peripheral vascular disease: Status: Acute Code(s): I73.9 - Peripheral vascular disease, unspecified (7) Chronic prescription opiate use: Status: Acute Code(s): Z79.891 - detention (current) use of opiate analgesic (8) Unspecified dementia without behavioral disturbance: Status: Acute Code(s): F03.90 - Unspecified dementia without behavioral disturbance (9) Major depressive disorder, recurrent severe without psychotic features: Status: Acute Code(s): F33.2 - Major depressive disorder, recurrent severe without psychotic features (10) SBO (small bowel obstruction): Status: Acute Code(s): K56.609 - Unspecified intestinal obstruction, unspecified as to partial versus complete obstruction Additional A&P Information Generalized weakness: Most likely due to poor oral intake as evident from general examination and his labs which are concerning for elevated BUN, decreased chloride and elevated bicarb levels. Patient has been afebrile since admission, mild leukocytosis of 11,000, urinalysis is benign, flu is negative. Procalcitonin, CT chest abdomen pelvis results appreciated. Continue with IV fluids at 50 cc/h. As patient has remained afebrile, normal procalcitonin, no leukocytosis we will hold off on antibiotics. Follow-up with culture results. Diastolic heart failure: Last echo in 2018 shows an EF of 66% with no other WMA with grade 1 diastolic dysfunction, trace AR, trace MR, moderate LVH. Patient looks a little dehydrated right now, proBNP 177. Continue with normal saline at 50 cc/h. Hold diuretics for now. CAD: Post CABG: Continue carvedilol at home dose. Hypertension: Blood pressure well maintained right now. Patient takes lisinopril along with carvedilol and Lasix at home. Continue holding lisinopril and amlodipine. Chronic opiate use: As per the chart patient has a pain management doctor. As per the chart he takes 30 to 60 mg oxycodone IR every 4 to every 6 hours as needed. To avoid withdrawal we will keep him on oxycodone 30 mg every 6 hours for now. History of DVT: Patient is on Eliquis. We will have to confirm with a caretaker resort when was it started and how long ago was restarted. Lower limb Dopplers to rule out DVT for now. Continue chronic medications like Seroquel and sertraline for now. We will change medications as per the clinical course and results of the examinations. PT evaluation. Continue with cardiac diet. Patient is tolerating well. 1 more dose of lactulose, MiraLAX. If patient does not have any bowel movements by afternoon we will do Fleet enema. DNR/DNI as per the old records. Eliquis will also work for DVT prophylaxis. Dispol: Question detail with patient regarding need of SNF placement. He states he would rather go home as he has a caretaker resort who lives with him 30/01. Can plan to discharge him home with caretaker resort. Attestations Medical Necessity Statement*: generalized weakness. Time Spent in Patient Care: Greater than 35 minutes Coding Level of Care Code Acute Cutting And Splicing Supervisor for [facility] Fwd Diagnoses Generalized weakness R53.1 CAD (coronary artery disease) I25.10 Diastolic heart failure I50.30 DVT (deep venous thrombosis) I82.409 Hypertension I10 Peripheral vascular disease I73.9 Chronic prescription opiate use Z79.891 Unspecified dementia without behavioral disturbance F03.90 Major depressive disorder, recurrent severe without psychotic features F33.2 SBO (small bowel obstruction) K56.609
--- NOTE | 2019-09-26 16:22 | USCV_ITS ---
Anurag Rios Age: 79 Gender: M : 1940 Exam Date: 09/26/2019 16:43 Ordering Phys: Josias Busby MD Technologist: Janay Carmen Exam Location: [facility] [place] Indication: r/o DVT HISTORY: R/O DVT. PROCEDURES: Examined bilaterally were the greater saphenous, common femoral, femoral, profunda, popliteal, posterior tibial veins, and peroneal trunk.. FINDINGS: All veins examined appear free of thrombus. No filling defects on color Doppler flow analysis. Vein flow and caliber vary with respiration. Increase in venous flow with augmentation. All veins appear compressible Bilateral Nunez's cysts noted. Right GSV removed for CABG. CONCLUSIONS No evidence of right lower extremity DVT. No evidence of left lower extremity DVT. Bilateral Bakers cysts partially visualized Omar Gutierrez MD (Electronically Signed) Final Date: 27 September 2019 16:41 S
[2019-09-26] MEDS: Fleet Enema 133 mL Enema PR (17:15)
--- NOTE | 2019-09-26 17:54 | CTR_ITS ---
PROCEDURE INFORMATION: Exam: CT Lumbar Spine Without Contrast Exam date and time: 09/26/2019 6:28 PM Age: 79 years old Clinical indication: Low back pain; Additional info: R/O discitis TECHNIQUE: Imaging protocol: Computed tomography images of the lumbar spine without contrast. Total DLP: 2558.83 mGy-cm Radiation optimization: All CT scans at this facility use at least one of these dose optimization techniques: automated exposure control; mA and/or kV adjustment per patient size (includes targeted exams where dose is matched to clinical indication); or iterative reconstruction. COMPARISON: CT lumbar spine wo con* [id number] 08/16/2019 2:53 PM FINDINGS: Vertebrae: No anterior wedging deformity. No acute lucent fracture lines are visualized. There is sacralization of the L5 vertebra. Diffuse degenerative endplate changes are seen at the lower thoracic and lumbar levels, except at L5-S1, where disc height is preserved. There is right convexity of the upper lumbar spine. Discs/Spinal canal/Neural foramina: No severe central canal stenosis is demonstrated by CT. Neural foraminal stenosis is most pronounced at the L4-L5 level, severe on the left and moderate to severe on the right at this level. Dorsal decompression is noted at the lower lumbar levels. Other findings: There are no CT findings to indicate discitis-osteomyelitis. CT/CT lumbar spine wo con* [id number] IMPRESSION: 1. Degenerative changes of the lumbar spine, as above. 2. No CT findings to indicate discitis-osteomyelitis. Radiation Dose CTDIVOL = (mGy): DLP = 2558.83 (mGy-cm)
--- NOTE | 2019-09-26 17:54 | CTR_ITS ---
PROCEDURE INFORMATION: Exam: CT Thoracic Spine Without Contrast Exam date and time: 09/26/2019 6:28 PM Age: 79 years old Clinical indication: Pain in thoracic spine; Additional info: R/O discitis TECHNIQUE: Imaging protocol: Computed tomography images of the thoracic spine without contrast. Total DLP: 2558.83 mGy-cm Radiation optimization: All CT scans at this facility use at least one of these dose optimization techniques: automated exposure control; mA and/or kV adjustment per patient size (includes targeted exams where dose is matched to clinical indication); or iterative reconstruction. COMPARISON: No relevant prior studies available. FINDINGS: Vertebrae: No destructive osseous lesions are identified. There are no findings to indicate a discitis-osteomyelitis. There are no anterior wedging deformities. No acute lucent fracture lines are visualized. Discs/Spinal canal/Neural foramina: There is moderate bilateral neural foraminal stenosis at T1-2. No severe central canal or neural foraminal stenosis demonstrated by CT. CT/CT thoracic spin wo con* [id number] IMPRESSION: No CT findings of discitis-osteomyelitis. Radiation Dose CTDIVOL = (mGy): DLP = 2558.83 (mGy-cm)
--- NOTE | 2019-09-26 18:03 | PC.PHAR ---
VANCOMYCIN 1500 MG Q 12 H PER PHARMACY PROTOCOL Pharmacokinetic dosing service Date: Time: Objective: Patient: Floor: Age: 79 yo Serum creatinine: 0.8 mg/dL Height: 72.0 Inches Weight (kg): 94 Assessment: IBW (kg): 77.60 Dosing wt(kg): 94 Estimated Creatinine clearance (ml/min): 86.2 CRCL method: Cockcroft and Gault using adjusted body weight Drug selected: Vancomycin Loading dose (mg): Vd (liters): 65.8 (factor used: 0.7 L/kg) Scottie (hr-1): 0.076 Half life (hrs): 9.12 CLvanco= 5.001 L/hr Recommended dose: 1500 mg Interval: 12 hrs Infusion time (hrs): 1 Predicted peak (mcg/mL): 36.7 Predicted trough (mcg/mL): 15.91 Total body weight is being used for vancomycin dosing. Recommendations: Give Vancomycin 1500 mg q 12 hrs with an expected Cpeak of 36.7 mcg/ml and an expected Ctrough of 15.91 mcg/ml Thank you for the consult, will continue to follow.
[2019-09-26] MEDS: quetiapine 100 mg Tablet PO (21:54)
[2019-09-27] VITALS (17 sets, daily range): BP systolic 119–150; BP diastolic 57–80; PULSE 61–90; RESP 15–20; TEMP 36.6–37.4; O2SAT 90–95
[2019-09-27] MEDS: oxyCODONE IR 30 mg Tablet PO ×3 (01:44→17:38)
[2019-09-27] MEDS: ipratropium-albuterol 3 mL Neb INHALATION ×4 (02:04→21:33)
[2019-09-27] MEDS: famotidine 20 mg/2 mL INJ IVP ×2 (04:29→15:17)
[2019-09-27 06:04] LABS: Basophils # 0.1 10^3/uL (0.0-0.1); Basophils % 0.8 %; Eosinophils # 0.4 10^3/uL (0.0-0.8); Hematocrit 33.6 % (42.0-52.0); Hemoglobin 10.1 g/dL (11.7-16.6); Lymphocytes # 2.1 10^3/uL (0.8-4.8); Mean Corpuscular HGB Conc 30.1 g/dL (30.0-36.0); Mean Corpuscular Hemoglobin 29.1 pg (28.0-34.0); Mean Corpuscular Volume 96.8 fL (80-94); Mean Platelet Volume 10.1 fL (7.4-10.4); Monocytes # 0.8 10^3/uL (0.2-0.9); Monocytes % 9.8 %; Neutrophils # 4.5 10^3/uL (1.8-7.7); Neutrophils % 57.3 %; Nucleated Red Blood Cells % 0 %; Platelet Count 210 10^3/cmm (130-400); Red Blood Count 3.47 10^6/uL (4.1-5.3); Red Cell Distribution Width 14.4 % (12.1-15.1); White Blood Count 7.8 10^3/uL (4.0-10.0)
[2019-09-27 06:21] LABS: Alanine Aminotransferase 9 U/L (0-41); Albumin Level 2.6 g/dL (3.5-5.2); Alkaline Phosphatase 64 IU/L (40-130); Anion Gap 11.8 (5-19); Aspartate Amino Transferase 20 U/L (0-40); Blood Urea Nitrogen 10 mg/dL (8-23); Calcium 9.1 mg/dL (8.5-10.5); Carbon Dioxide 26 mmol/L (22-29); Chloride 103 mmol/L (98-107); Globulin 4.1 g/dL (1.3-4.6); Glucose 123 mg/dL (65-115); Osmolality Calculated 281 mOsm/kg (285-295); Potassium 3.8 mmol/L (3.5-5.1); Sodium 137 mmol/L (136-145); Total Bilirubin 0.5 mg/dL (0.15-1.2); Total Protein 6.7 g/dL (6.6-8.7)
[2019-09-27] MEDS: carvedilol 12.5 mg Tablet PO ×2 (09:09→17:39)
[2019-09-27] MEDS: apixaban 5 mg Tablet PO ×2 (09:09→17:39)
[2019-09-27] MEDS: sertraline 100 mg Tablet 200 MG PO (09:09)
[2019-09-27] MEDS: budesonide 0.5 mg/2 mL Neb INHALATION ×2 (09:40→21:33)
--- NOTE | 2019-09-27 10:35 | PC.RESP ---
Patient does not have a qualifying hx of lung disease at this time.
--- NOTE | 2019-09-27 12:19 | PC.CHAP ---
Pastoral Care Encounter/Spiritual Assessment Type of Contact [] Declined angular developer visit [] Patient/Family/Request visit [] Outpatient visit [] Follow-up visit [] Physician referral [] Code/Alert [x] Routine visit [] Staff referral [] Actively dying [] Patient sleeping [] Family support [] [] Out of room [] Palliative care [] [x] Receiving care in room [] Pre-surgical visit [] Trauma [] Long length of stay [] ICU visit [] Other: Relational/Emotional Strength [x] Patient feels connected with others/family/visitors/staff [] Distress [] Loneliness/isolation [] Abandonment Spirituality of Patient [x] Person of Vanna [] Attends Adventist of their Vanna [x] Believes in Prayer [] Reads Bible or Buddhism materials [] There are Spiritual issues to be addressed Nutrition Aide Interventions [x] Prayer [x] Active listening [x] Non-anxious presence [x] Spiritual/emotional support [] Crisis/trauma care [x] Spiritual counseling [] Bereavement support [] Provided bereavement packet [] Provided Bible/devotional materials [] Provided toy/stuffed animal, coloring book to patient or family member [] Provided Communion [] Anointing/[place]can [] Salvation [x] Completed spiritual assessment [] Other: Impact on Illness or Injury [] Angry [] Fearful [] Anxious [] Often cries [] Exhaustion [x] Unable to work [] Unable to attend pentecostalism [] Unable to walk/stand [] Unable to read [] Unable to drive [] Unable to eat/drink [] Unable to sleep [] Unable to be with family [] Patient intubated [] Other: Summary Lots of health problems, not sure about health? Time spent with patient 10 mins
--- NOTE | 2019-09-27 15:26 | PM.PN ---
Subjective Subjective: Interval history: No acute events overnight. Labs noted. On examination today patient is a lot more comfortable, alert and conversive. Patient did have a good bowel movement yesterday after bowel regimen. Did not require any Fleet enema. He denies of having any nausea, vomiting, headache, dizziness, palpitations. . Blood cultures concerning for Gram-positive cocci from admission Vitals/I&O/Wt Last Vital Signs Temp 98.9 F 09/27/19 15:25 Pulse 67 09/27/19 15:25 Resp 18 09/27/19 15:25 BP 125/65 09/27/19 15:25 Pulse Ox 91 09/27/19 15:25 09/27/19 09/27/19 09/27/19 06:59 14:59 22:59 Intake Total 1730 / 1730 Output Total 250 / 700 275 / 275 Balance -250 / 1870 1455 / 1455 Weight last 48 hrs Weight 94.517 kg Weight 93.695 kg Physical Exam Narrative: EXAM NARRATIVE: General: No acute distress, AO x2, dehydrated HEENT: PERRLA, pupils bilaterally equal and reactive Chest: Normal vesicular breath sounds, no added sounds, equal good air entry bilaterally CVS: S1-S2 regular, no murmurs, no tachycardia, no gallops, no rubs Abdomen: No pallor no icterus tender in right lower quadrant, guarding present, no rebound tenderness, bowel sounds sluggish, no organomegaly. Neuro: No focal deficits, no facial deformity, AO x3, power 5/5 in all limbs Data : 09/27/19 05:52 09/27/19 05:52 Micro: Microbiology 09/25/19 14:23 Urine Culture - Preliminary Urine,Clean Catch 09/25/19 13:05 Blood Culture - Preliminary Blood Coagulase negativ staphylococc 09/25/19 13:00 Blood Culture - Preliminary Blood Coagulase negativ staphylococc 09/26/19 19:12 Blood Culture - Preliminary Blood SPECIMEN COLLECTED 09/26/19 19:08 Blood Culture - Preliminary Blood SPECIMEN COLLECTED 09/26/19 00:35 MRSA Culture - Final Nose A&P Assessment and plan (1) Gram-positive bacteremia: Status: Acute Code(s): R78.81 - Bacteremia (2) Generalized weakness: Status: Acute Code(s): R53.1 - Weakness (3) CAD (coronary artery disease): Status: Acute Code(s): I25.10 - Atherosclerotic heart disease of [place] coronary artery without angina pectoris (4) Diastolic heart failure: Status: Acute Code(s): I50.30 - Unspecified diastolic (congestive) heart failure (5) DVT (deep venous thrombosis): Status: Acute Code(s): I82.409 - Acute embolism and thrombosis of unspecified deep veins of unspecified lower extremity (6) Hypertension: Status: Acute Code(s): I10 - Essential (primary) hypertension (7) Peripheral vascular disease: Status: Acute Code(s): I73.9 - Peripheral vascular disease, unspecified (8) Chronic prescription opiate use: Status: Acute Code(s): Z79.891 - instructor dancing (current) use of opiate analgesic (9) Unspecified dementia without behavioral disturbance: Status: Acute Code(s): F03.90 - Unspecified dementia without behavioral disturbance (10) Major depressive disorder, recurrent severe without psychotic features: Status: Acute Code(s): F33.2 - Major depressive disorder, recurrent severe without psychotic features (11) Constipation: Status: Acute Code(s): K59.00 - Constipation, unspecified Additional A&P Information Gram-positive bacteremia: Blood cultures from admission now positive for gram-positive cocci: Continue with vancomycin renally dosed which started yesterday. Given the history of pacemaker, chronic back pain and given gram-positive cocci bacteremia we will have to rule out seeding so CT thorax and lumbar spine were done yesterday which were negative for discitis. Echocardiogram results appreciated. Repeat blood cultures were sent yesterday. He did not want to be positive will most likely have to do MELIZA to have better visualization of the valves to rule out infective endocarditis. For now we will continue vancomycin and will try today and de-escalate as per the culture results. MRSA negative. Generalized weakness: Most likely due to poor oral intake but given the new blood culture positive for now rule out due to sepsis. Patient has remained afebrile, no leukocytosis and normal procalcitonin. It is possible blood culture positive could be a contaminant but cannot take it lightly given the history of pacemaker implantation. Diastolic heart failure: Last echo in 2018 shows an EF of 66% with no other WMA with grade 1 diastolic dysfunction, trace AR, trace MR, moderate LVH. Patient looks a little dehydrated right now, proBNP 177. Mildly fluid overload today. As patient is tolerating diet well will discontinue fluid and give Lasix 20 mg IV today. CAD: Post CABG: Continue carvedilol at home dose. Hypertension: Blood pressure well maintained right now. Patient takes lisinopril along with carvedilol and Lasix at home. Continue holding lisinopril and amlodipine. Chronic opiate use: As per the chart patient has a pain management doctor. As per the chart he takes 30 to 60 mg oxycodone IR every 4 to every 6 hours as needed. To avoid withdrawal we will keep him on oxycodone 30 mg every 6 hours for now. History of DVT: Patient is on Eliquis. Lower limb Dopplers to rule out DVT results awaited. For now continue with Eliquis. Continue chronic medications like Seroquel and sertraline for now. Continue with cardiac diet. Patient is tolerating well. Bowel regimen as needed with lactulose and MiraLAX DNR/DNI as per the old records. Eliquis will also work for DVT prophylaxis. Dispol: Question detail with patient regarding need of SNF placement. He states he would rather go home as he has a director online marketing who lives with him 30/01. Can plan to discharge him home with director online marketing. 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
--- NOTE | 2019-09-27 17:53 | USCV_ITS ---
Anurag Rios Age: 79 Gender: M : 1940 Exam Date: 09/27/2019 06:21 Ordering Phys: Josias Busby MD Technologist: Riri Heredia Exam Location: [facility] – [place] Indication: sob, weakness, cough BP: 132 / 68 HR: 58 Rhythm: Sinus Technical Quality: Adequate MEASUREMENTS (Male / Female) Normal Values 2D ECHO LV Diastolic Diameter PLAX 5.3 cm 4.2 - 5.9 / 3.9 - 5.3 cm LV Systolic Diameter PLAX 3.5 cm IVS Diastolic Thickness 1.0 cm 0.6 - 1.0 / 0.6 - 0.9 cm IVS Systolic Thickness 1.4 cm LVPW Diastolic Thickness 0.8 cm 0.6 - 1.0 / 0.6 - 0.9 cm LVPW Systolic Thickness 1.7 cm LVOT Diameter 2.1 cm LV Ejection Fraction 2D Teich 63.9 % LV Ejection Fraction MOD 2C 70.6 % LV Ejection Fraction 2C AL 70.7 % LA Diameter 4.9 cm LA Width 3.3 cm LA Height 6.3 cm RA Width 4.0 cm RA Height 6.9 cm M-MODE LV Diastolic Diameter MM 6.3 cm 4.2 - 5.9 / 3.9 - 5.3 cm LV Systolic Diameter MM 3.3 cm LV Ejection Fraction MM Teich 77.4 % IVS Diastolic Thickness MM 0.8 cm 0.6 - 1.0 / 0.6 - 0.9 cm IVS Systolic Thickness MM 1.7 cm LVPW Diastolic Thickness MM 1.3 cm 0.6 - 1.0 / 0.6 - 0.9 cm LVPW Systolic Thickness MM 1.8 cm Aortic Annulus Diameter 3.5 cm LA Ao Ratio MM 1.4 MV E Point Septal Separation 0.5 cm DOPPLER AV Peak Velocity 160.0 cm/s LVOT Peak Velocity 105.0 cm/s AV Area Cont Eq vti 2.5 cm squared AV Area Cont Eq pk 2.4 cm squared MV Peak Velocity 127.0 cm/s MV Area PHT 3.1 cm squared Mitral E to A Ratio 1.2 MV E' Velocity 121.0 cm/s TR Peak Velocity 71.0 cm/s TR Peak Gradient 2.0 mmHg Right Atrial Pressure 3.0 mmHg Pulmonary Artery Systolic Pressu 5.0 mmHg PV Peak Velocity 95.0 cm/s RV Acceleration Time 0.1 s FINDINGS Left Ventricle Normal left ventricular size and systolic function, EF 74 %. No regional wall motion abnormalities. Right Ventricle The right ventricle is normal in size and function. Right Atrium The right atrium is normal in size. Left Atrium Moderately increased left atrial size. Mitral Valve Thickened mitral valve. Mild mitral annular calcification. Mild mitral valve regurgitation. Aortic Valve Thickened aortic valve. Some calcification in the aortic annulus Tricuspid Valve No gross abnormalities noted Pulmonic Valve Pulmonic valve not well visualized. Pericardium Normal pericardium without effusion. Aorta Normal ascending aorta dimension. CONCLUSIONS Normal left ventricular size and systolic function, EF 74 %. No regional wall motion abnormalities. Moderately increased left atrial size. Thickened mitral valve. Mild mitral annular calcification. Mild mitral valve regurgitation. Thickened aortic valve. Mild calcification in the aortic annulus There is no pericardial effusion. There are no intracardiac masses. Dr Velvet Park MD [facility] (Electronically Signed) Final Date: 27 September 2019 10:07 S
[2019-09-27] MEDS: FUROsemide 10 mg/mL SDV 2mL 20 MG IVP (18:47)
[2019-09-27 18:58] LABS: Vancomycin Trough 14.5 ug/mL (10-15)
[2019-09-27] MEDS: quetiapine 100 mg Tablet PO (21:34)
[2019-09-28] VITALS (28 sets, daily range): BP systolic 107–168; BP diastolic 62–87; PULSE 55–87; RESP 14–23; TEMP 36.8–37.3; O2SAT 78–100
[2019-09-28] MEDS: oxyCODONE IR 30 mg Tablet PO ×3 (02:07→18:52)
[2019-09-28] MEDS: ipratropium-albuterol 3 mL Neb INHALATION ×4 (02:35→20:13)
[2019-09-28] MEDS: famotidine 20 mg/2 mL INJ IVP ×2 (05:15→16:16)
[2019-09-28 06:10] LABS: Basophils # 0.1 10^3/uL (0.0-0.1); Eosinophils # 0.3 10^3/uL (0.0-0.8); Eosinophils % 4.5 %; Hemoglobin 10.2 g/dL (11.7-16.6); Lymphocytes # 2.2 10^3/uL (0.8-4.8); Lymphocytes % 29.8 %; Mean Corpuscular HGB Conc 31.9 g/dL (30.0-36.0); Mean Corpuscular Hemoglobin 28.7 pg (28.0-34.0); Mean Corpuscular Volume 89.9 fL (80-94); Mean Platelet Volume 10.3 fL (7.4-10.4); Monocytes # 0.6 10^3/uL (0.2-0.9); Monocytes % 8.8 %; Neutrophils # 4.1 10^3/uL (1.8-7.7); Neutrophils % 55.6 %; Nucleated Red Blood Cells % 0 %; Platelet Count 272 10^3/cmm (130-400); Red Blood Count 3.56 10^6/uL (4.1-5.3); Red Cell Distribution Width 13.9 % (12.1-15.1); White Blood Count 7.3 10^3/uL (4.0-10.0)
[2019-09-28 06:33] LABS: Alanine Aminotransferase 12 U/L (0-41); Albumin Level 3.1 g/dL (3.5-5.2); Alkaline Phosphatase 69 IU/L (40-130); Anion Gap 9.5 (5-19); Aspartate Amino Transferase 21 U/L (0-40); Blood Urea Nitrogen 8 mg/dL (8-23); Calcium 9.5 mg/dL (8.5-10.5); Carbon Dioxide 32 mmol/L (22-29); Chloride 99 mmol/L (98-107); Globulin 3.9 g/dL (1.3-4.6); Glucose 90 mg/dL (65-115); Osmolality Calculated 279 mOsm/kg (285-295); Potassium 3.5 mmol/L (3.5-5.1); Sodium 137 mmol/L (136-145); Total Bilirubin 0.4 mg/dL (0.15-1.2)
[2019-09-28] MEDS: budesonide 0.5 mg/2 mL Neb INHALATION ×2 (09:17→20:13)
[2019-09-28] MEDS: ondansetron 2 mg/ML SDV 2 mL 4 MG IVP (10:44)
[2019-09-28] MEDS: baclofen 10 mg Tablet 20 MG PO ×2 (10:47→18:53)
[2019-09-28] MEDS: apixaban 5 mg Tablet PO ×2 (10:47→18:53)
[2019-09-28] MEDS: sertraline 100 mg Tablet 200 MG PO (10:48)
[2019-09-28] MEDS: polyethylene glycol 3350 Pkt 17 gm PO ×2 (10:48→18:54)
[2019-09-28] MEDS: carvedilol 12.5 mg Tablet PO ×2 (10:48→18:52)
--- NOTE | 2019-09-28 11:35 | USCV_ITS ---
Anurag Rios Age: 79 Gender: M : 1940 Exam Date: 09/28/2019 16:56 Ordering Phys: Matthew Kenney MD Technologist: Janay Carmen [place]am [place] [facility] [place]ication: BACTEREMIA BP: / HR: Rhythm: Sinus Technical Quality: Good MEASUREMENTS (Male / Female) Normal Values Medications Administered by the anesthesia service. Please refer to the anesthesia report Complications None Proc. Components The procedure was performed in the ICU.the MELIZA probe was passed into the posterior pharynx , mid-esophagus, distal esophagus, and gastric fundus. MELIZA was performed at multiple levels. The patient tolerated the procedure well and there were no complications. FINDINGS Left Ventricle Possibly of normal size with a mild diffuse hypokinesia of the septum. Concentric left ventricular hypertrophy Right Ventricle Possibly of normal size ejection fraction Right Atrium Possibly of normal size. Prominent vestiges of eustachian valve Left Atrium Mildly dilated. LA Appendage Of normal size with a prominent trabeculations. Normal contractility IA Septum Appears to be intact with no evidence of any ASD or PFO Mitral Valve Minimally thickened. Mild mitral valve regurgitation. Aortic Valve Minimally thickened with no masses or vegetations Tricuspid Valve No gross abnormalities noted Pulmonic Valve No gross abnormalities noted Pericardium No pericardial effusion Aorta Normal aortic annulus size. CONCLUSIONS Minimally thickened aortic and mitral valves with no vegetations. Mild mitral regurgitation. Possibly normal LV size and ejection fraction Wall motion normality as mentioned above. No intracardiac masses No intracardiac shunts by color flow Doppler examination. No similar previous studies available for comparison Dr Velvet Park MD [facility] (Electronically Signed) Final Date: 28 September 2019 21:04 S
--- NOTE | 2019-09-28 11:53 | PC.SOCIAL ---
*Patient received IM from [employer]. Original in chart.
--- NOTE | 2019-09-28 12:14 | PM.PN ---
Subjective Subjective: Interval history: He is still feeling fatigued. States that at home he lives with a caregiver. Says that he has a daughter, but prefers to be did not call her as they have not been on good terms. Vitals/I&O/Wt Last Vital Signs Temp 99.1 F 09/28/19 11:57 Pulse 73 09/28/19 11:57 Resp 18 09/28/19 11:57 BP 159/76 09/28/19 11:57 Pulse Ox 95 09/28/19 11:57 09/27/19 09/28/19 09/28/19 22:59 06:59 14:59 Intake Total 970 / 2700 Output Total 75 / 350 300 / 650 100 / 100 Balance 895 / 2350 -300 / 2050 -100 / -100 Weight last 48 hrs Weight 95.424 kg Weight 94.517 kg Physical Exam Const: COMMON NORMALS: no apparent distress and oriented x3 HENMT: COMMON NORMALS: oropharynx normal Neck/C-Spine: COMMON NORMALS: no JVD Resp: COMMON NORMALS: normal respiratory effort and clear to auscultation bilaterally AUSCULTATION: clear to auscultation bilaterally Cardio: COMMON NORMALS: no JVD, regular rhythm, S1 normal heart sound, S2 normal heart sound and no murmurs RHYTHM: regular rhythm HEART SOUNDS: S1 normal and S2 normal GI: COMMON NORMALS: normal to inspection, nondistended, normoactive bowel sounds and soft to palpation PALPATION: Yes soft OTHER: Some abdominal discomfort right lower quadrant. Extremity: COMMON NORMALS: no joint enlargement and no pedal edema Neuro: COMMON NORMALS: oriented x3 and moves all extremities Skin: COMMON NORMALS: no rashes or lesions noted GENERAL SKIN EXAM: no rashes or lesions noted Data : 09/28/19 04:58 09/28/19 04:58 Micro: Microbiology 09/26/19 19:12 Blood Culture - Preliminary Blood NEGATIVE TO DATE 09/26/19 19:08 Blood Culture - Preliminary Blood NEGATIVE TO DATE 09/25/19 14:23 Urine Culture - Preliminary Urine,Clean Catch 09/25/19 13:05 Blood Culture - Preliminary Blood Coagulase negativ staphylococc 09/25/19 13:00 Blood Culture - Preliminary Blood Coagulase negativ staphylococc A&P Assessment and plan (1) Gram-positive bacteremia: TTE without obvious vegetation. With thickening of mitral valve. Repeat cultures for without growth. Discussed results with him. Discussed his persistent symptoms. History of PPM. Discussed with cardiology and we will arrange for MELIZA. Follow-up final blood cultures. Status: Acute Code(s): R78.81 - Bacteremia (2) Generalized weakness: Encourage oral intake. Status: Acute Code(s): R53.1 - Weakness (3) CAD (coronary artery disease): History of CABG. Status: Acute Code(s): I25.10 - Atherosclerotic heart disease of [place] coronary artery without angina pectoris (4) Diastolic heart failure: Currently not in exacerbation. Status: Acute Code(s): I50.30 - Unspecified diastolic (congestive) heart failure (5) DVT (deep venous thrombosis): History of DVT. Continue Eliquis. Status: Acute Code(s): I82.409 - Acute embolism and thrombosis of unspecified deep veins of unspecified lower extremity (6) Hypertension: Monitor blood pressures. Status: Acute Code(s): I10 - Essential (primary) hypertension (7) Peripheral vascular disease: Status: Acute Code(s): I73.9 - Peripheral vascular disease, unspecified (8) Chronic prescription opiate use: Status: Acute Code(s): Z79.891 - long-term (current) use of opiate analgesic (9) Unspecified dementia without behavioral disturbance: Status: Acute Code(s): F03.90 - Unspecified dementia without behavioral disturbance (10) Major depressive disorder, recurrent severe without psychotic features: Status: Acute Code(s): F33.2 - Major depressive disorder, recurrent severe without psychotic features (11) Constipation: Status: Acute Code(s): K59.00 - Constipation, unspecified Additional A&P Information Abdominal discomfort right lower quadrant: Says that he deals with chronic constipation. Reports that he has had a colonoscopy in the past but does not remember when. CT abdomen pelvis without obvious abnormality. Increase Eliquis to twice daily. Attestations Medical Necessity Statement*: Continue to nephrosis and management of bacteremia, fatigue. 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
--- NOTE | 2019-09-28 12:54 | P.CONIM_ITS ---
Providers/Reason For Consult Consulting Physican/Specialty*: MICHELLE Park MD/cardiology Reason for Consult*: Patient with multiple medical problems, including coronary artery disease, congestive heart failure, DVT, peripheral artery disease, COPD and CVA, presenting with generalized weakness. Found to have positive blood culture-2 out of the 4 bottles grew coagulase-negative staph. Cardiology consult is requested to consider a MELIZA, to rule out any endocarditis. Attending Physician: Matthew Kenney Primary Care Provider: MEGGAN Obando History of Present Illness History of Present Illness Anurag Rios is a 79 year old male is admitted to the hospital with complaints of generalized weakness and shortness of breath. This patient is known to have coronary disease, heart failure, COPD, degenerative joint disease, anxiety/depressive illness, chronic back pain and multiple other medical problems. He is a very poor historian. He seems to be confused today. He denies any chest pain. His shortness of breath is back to his baseline. He has a chronic cough. He also has been having some GI problems-GERD and constipation. He denies any chest pain. No fever or chills. No hemoptysis or hematemesis. No dysphagia. No other specific complaints. Review of Systems Narrative: CONSTITUTIONAL: No fever or chills. Feeling of generalized weakness as mentioned above. EYES: No blurring of vision or other visual disturbances lately. ENT: No hoarseness of voice, auditory disturbances or sore throat. CARDIOVASCULAR: As mentioned above. RESPIRATORY: History of COPD and a chronic cough. GASTROINTESTINAL: No hematemesis or melena. Severe GERD. Has been having constipation intermittently. GENITOURINARY: No dysuria or hematuria. INTEGUMENTARY: No skin rashes or history of skin cancer. NEURO: History of TIA. PSYCHIATRIC: History of anxiety/depressive illness. HEMATOLOGIC: History of DVT. On long-term oral anticoagulation. ENDOCRINE: No history of polyuria or polydipsia. MUSCULOSKELETAL: No recent joint pain or swelling. ALLERGY/IMMUNOLOGY: As mentioned above. Meds/Allergies Home Medications and Allergies Home Medications Medication Instructions Recorded Confirmed Type apixaban 5 mg tablet 5 mg PO BID 08/05/19 09/25/19 History baclofen 20 mg tablet 20 mg PO TID PRN 08/05/19 09/25/19 History lubiprostone 24 mcg capsule 24 mcg PO BID 08/05/19 09/25/19 History nitroglycerin 0.4 mg sublingual 0.4 mg SUBLINGUAL Q5M PRN 08/05/19 09/25/19 History tablet oxycodone 30 mg tablet See Rx Instructions .ROUTE 08/05/19 09/25/19 History .COMPLEX tab carvedilol 12.5 mg tablet 12.5 mg PO BID #60 tab 08/13/19 09/25/19 Rx sertraline 100 mg tablet 200 mg PO DAILY #60 tab 08/16/19 09/25/19 Rx Seroquel 100 mg PO BEDTIME 09/25/19 09/25/19 History albuterol sulfate [ProAir HFA] 2 puff INHALATION QID PRN 09/25/19 09/25/19 History amlodipine 10 mg PO DAILY 09/25/19 09/25/19 History furosemide [Lasix] 40 mg PO BID 09/25/19 09/25/19 History lisinopril 20 mg PO DAILY 09/25/19 09/25/19 History multivitamin [Multiple Vitamins] 1 tab PO DAILY 09/25/19 09/25/19 History trazodone 300 mg PO BEDTIME PRN 09/25/19 09/25/19 History Allergies Allergy/AdvReac Type Severity Reaction Status Date / Time hydromorphone Allergy Mild hives Verified 09/10/19 15:46 Current Medications Current Medications Generic Name Dose Route Start Last Admin Trade Name Freq PRN Reason Stop Dose Admin Albuterol Sulfate 2.5 mg 09/25/19 16:00 09/25/19 17:53 Albuterol INHALATION 2.5 mg Q4H.RESPIRATORY PRN Administration SHORTNESS OF BREATH Albuterol/Ipratropium 3 ml 09/25/19 21:00 09/28/19 09:18 Duoneb INHALATION 3 ml Q6H.RESPIRATORY CHRIS Administration Apixaban 5 mg 09/25/19 18:00 09/28/19 10:47 Eliquis PO 5 mg BID CHRIS Administration Baclofen 20 mg 09/25/19 21:00 09/28/19 10:47 Lioresal PO 20 mg TID PRN Administration MUSCLE SPASM Budesonide 0.5 mg 09/25/19 20:00 09/28/19 09:17 Pulmicort INHALATION 0.5 mg BID.RESPIRATORY CHRIS Administration Carvedilol 12.5 mg 09/25/19 18:00 09/28/19 10:48 Coreg PO 12.5 mg BID CHRIS Administration Famotidine 20 mg 09/25/19 16:00 09/28/19 05:15 Pepcid Inj IVP 20 mg Q12H CHRIS Administration Vancomycin HCl 1,500 mg/ 250 mls @ 166.667 mls/hr 09/26/19 19:00 09/28/19 10:42 Sodium Chloride IV 166 mls/hr Q12H CHRIS Administration Protocol Non-Formulary Medication 24 mcg 09/25/19 18:00 09/28/19 10:49 Lubiprostone [Amitiza] PO Not Given BID CHRIS Ondansetron HCl 4 mg 09/25/19 16:57 09/28/19 10:44 Zofran IVP 4 mg Q8H PRN Administration vomiting, or N/V if npo Oxycodone HCl 30 mg 09/25/19 16:00 09/28/19 10:46 Oxycodone Ir PO 30 mg Q6H PRN Administration PAIN Quetiapine Fumarate 100 mg 09/25/19 21:00 09/27/19 21:34 Seroquel PO 100 mg BEDTIME CHRIS Administration Sertraline HCl 200 mg 09/26/19 09:00 09/28/19 10:48 Zoloft PO 200 mg DAILY CHRIS Administration PFSH Acute PFSH: Medical History CAD (coronary artery disease) Chronic prescription opiate use Diastolic heart failure DVT (deep venous thrombosis) Generalized anxiety disorder Hx of cervical spinal arthrodesis Hypertension Intervertebral disc disorder with radiculopathy of lumbosacral region Lumbar stenosis with neurogenic claudication Major depressive disorder, recurrent severe without psychotic features Peripheral vascular disease Sleep apnea, unspecified Unspecified dementia without behavioral disturbance Surgical History History of cervical spinal surgery 1979 [facility] C6-C7 laminectomy/fusion/fixation History of heart bypass surgery (~2007) History of hernia surgery 4x History of lumbar surgery [facility]. L3-L4, L4-L5, L5-S1 decompression Hx of CABG Hx of cholecystectomy Family History Father Diabetes Mother Colon cancer Hypertension Social History Smoking and tobacco status: former smoker Alcohol intake: never Household members: significant other Marital status: Current occupational status: disabled History of recent travel: No Vitals/I&O/Wt Last Vital Signs Temp 99.1 F 09/28/19 11:57 Pulse 73 09/28/19 11:57 Resp 18 09/28/19 11:57 BP 159/76 09/28/19 11:57 Pulse Ox 95 09/28/19 11:57 09/27/19 09/28/19 09/28/19 22:59 06:59 14:59 Intake Total 970 / 2700 Output Total 75 / 350 300 / 650 200 / 200 Balance 895 / 2350 -300 / 2050 -200 / -200 Weight last 48 hrs Weight 210 lb 6 oz Weight 208 lb 6 oz Physical Exam Narrative: EXAM NARRATIVE: GENERAL: The patient is alert and oriented to place and person. E. Not in any acute distress. HEENT: Minimal pallor, no icterus or lymphadenopathy.Oral cavity: There are no mucous membrane lesions. Fundus is not visualized NECK: Trachea appears to be central. No masses noted. No JVD or thyromegaly appreciated. RESPIRATORY: Chest is symmetrical. No intercostals muscle retraction or any accessory muscle activation. There is no chest wall tenderness. Breath sounds are heard bilaterally. No rales or rhonchi heard. No evidence of any consolidation. Sounds are diminished in the bases. BREASTS: Deferred. HEART: The heart sounds are normal. No S3 or S4. Short systolic murmur in the left sternal border. No diastolic murmurs. No pericardial rub ABDOMEN: Vague tenderness in the right iliac fossa. No rebound tenderness. No organomegaly appreciated. : Deferred. RECTAL: Deferred. LYMPHATIC: No lymphadenopathy noted in the neck or groin. EXTREMITIES: No edema or cyanosis. No clubbing. Peripheral pulses are weak bilaterally. No cyanosis. MUSCULOSKELETAL: No acute joint deformities or swelling SKIN: There are no significant scars or skin rash noted. NEUROPSYCHIATRIC: The patient is alert and oriented x3. Appears to be in a good mood. No tremors or rigidity noted. Data Labs: Other Labs: Laboratory Results - last 24 hr 09/27/19 09/28/19 09/28/19 18:16 04:58 04:58 WBC 7.3 RBC 3.56 L Hgb 10.2 L Hct 32.0 L MCV 89.9 D MCH 28.7 MCHC 31.9 D RDW 13.9 Plt Count 272 MPV 10.3 Neut % (Auto) 55.6 Lymph % (Auto) 29.8 [place] % (Auto) 8.8 Eos % (Auto) 4.5 Baso % (Auto) 1.0 Neut # (Auto) 4.1 Lymph # (Auto) 2.2 [place] # (Auto) 0.6 Eos # (Auto) 0.3 Baso # (Auto) 0.1 Nucleated RBC % (a uto) 0 Nucleated RBCs # 0.0 Sodium 137 Potassium 3.5 Chloride 99 Carbon Dioxide 32 H Anion Gap 9.5 BUN 8 Creatinine 0.6 L Glucose 90 Calculated Osmolal ity 279 L Calcium 9.5 Total Bilirubin 0.4 AST 21 ALT 12 Alkaline Phosphata se 69 Total Protein 7.0 Albumin 3.1 L Globulin 3.9 Vancomycin Trough 14.5 Micro: Micro: Microbiology 09/26/19 19:12 Blood Culture - Pr eliminary Blood NEGATIVE TO JUDY E 09/26/19 19:08 Blood Culture - Pr eliminary Blood NEGATIVE TO JUDY E 09/25/19 14:23 Urine Culture - Pr eliminary Urine,Clean Catch 09/25/19 13:05 Blood Culture - Pr eliminary Blood Coagulase negat iv staphylococc 09/25/19 13:00 Blood Culture - Pr eliminary Blood Coagulase negat iv staphylococc Imaging^: CXR: My impression: Borderline cardiac silhouette with no lung infiltrate. Features of atherosclerotic vascular changes. Previous coronary artery bypass surgery. No acute findings. CT Chest: Radiologist's impression: No acute findings noted CT Abd/Pel: Radiologist's impression: No acute findings noted CT of the thoracic and lumbar spines: My impression: No evidence of any osteomyelitis involving the thoracic or lumbar spines. EKG^: EKG 1: My Interpretation: Normal sinus rhythm with incomplete right bundle branch block. First-degree AV block. Some nonspecific T wave changes. A&P Assessment and plan (1) Gram-positive bacteremia: Source of infection is not clear at this time. Possibility of endocarditis is a consideration. The transthoracic echocardiogram was unremarkable. It may be appropriate at this point to consider MELIZA, to further evaluate for endocarditis and decide on further management. Status: Acute Code(s): R78.81 - Bacteremia (2) Atherosclerotic heart disease of [place] coronary artery without angina pectoris: Clinically appears to be stable. No evidence of any myocardial injury at this time. EKG is unremarkable. Status: Acute Code(s): I25.10 - Atherosclerotic heart disease of [place] coronary artery without angina pectoris (3) COPD (chronic obstructive pulmonary disease) with chronic bronchitis: The respiratory status is stable. May continue on the current measures. Status: Acute Code(s): J44.9 - Chronic obstructive pulmonary disease, unspecified (4) Lower abdominal pain: Possibly related to chronic constipation. No evidence of any GI bleed. Status: Acute Code(s): R10.30 - Lower abdominal pain, unspecified (5) Benign essential hypertension with target blood pressure below 140/90: Currently the blood pressure is a stage II. May optimize the antihypertensive medications. I may add amlodipine 2.5 mg p.o. now and daily to better control the blood pressure Status: Acute Code(s): I10 - Essential (primary) hypertension (6) History of DVT (deep vein thrombosis): Patient is on long-term oral anticoagulation. May continue on the current medications. Status: Acute Code(s): Z86.718 - Personal history of other venous thrombosis and embolism Additional A&P Information Other problems are as outlined elsewhere. To further evaluate for endocarditis, it would be appropriate to do a transesophageal echocardiogram. As of now patient does not appear to have any contraindication. If the family is agreeable, we may go ahead with the procedure. Based on the MELIZA findings, further recommendations will be made Coding Level of Care Code Acute Commercial Roofing Estimator for Chg Fwd Diagnoses Gram-positive bacteremia R78.81 Atherosclerotic heart disease of [place] coronary artery without angina pectoris I25.10 COPD (chronic obstructive pulmonary disease) with chronic bronchitis J44.9 Lower abdominal pain R10.30 Benign essential hypertension with target blood pressure below 140/90 I10 History of DVT (deep vein thrombosis) Z86.718
--- NOTE | 2019-09-28 15:06 | ANES.PREANE2 ---
Pre-Anesthetic Assessment Pre-Anesthetic Assessment: Height/Weight: Height 1.83 m Weight 95.424 kg Temp Pulse Resp BP Pulse Ox 99.1 F 87 14 159/76 93 09/28/19 11:57 09/28/19 14:50 09/28/19 14:44 09/28/19 11:57 09/28/19 14:44 Preop Diagnosis: septecemia r/o endocarditis Last Intake: 09:30 Social: Social History: Tobacco Exam: Pre-Anes Outpt Exam: alert, oriented x 3 and regular rate & rhythm Airway: Submandibular: WNL Cervical ROM: WNL MP: 2 Pulmonary: Pulmonary: COPD and Sleep apnea CV/HEM: CV/HEM: CAD, CHF, DVT and HTN Comments: s/p CABG '08 GI: GI: GERD Musc/skel: Musc/skel: Lower Back Pain Neuropsych: Neuropsych: Anxiety, CVA and Depression Anesthetic Plan: ASA status: 4E Anesthesia: MAC Meds/Allergies Current Medications: Current Medications Generic Name Dose Route Start Last Admin Trade Name Freq PRN Reason Stop Dose Admin Albuterol Sulfate 2.5 mg 09/25/19 16:00 09/25/19 17:53 Albuterol INHALATION 2.5 mg Q4H.RESPIRATORY P RN Administration SHORTNESS OF ANTOINETTE TH Albuterol/Ipratrop ium 3 ml 09/25/19 21:00 09/28/19 14:44 Duoneb INHALATION 3 ml Q6H.RESPIRATORY S CH Administration Apixaban 5 mg 09/25/19 18:00 09/28/19 10:47 Eliquis PO 5 mg BID CHRIS Administration Baclofen 20 mg 09/25/19 21:00 09/28/19 10:47 Lioresal PO 20 mg TID PRN Administration MUSCLE SPASM Budesonide 0.5 mg 09/25/19 20:00 09/28/19 09:17 Pulmicort INHALATION 0.5 mg BID.RESPIRATORY S CH Administration Carvedilol 12.5 mg 09/25/19 18:00 09/28/19 10:48 Coreg PO 12.5 mg BID CHRIS Administration Famotidine 20 mg 09/25/19 16:00 09/28/19 05:15 Pepcid Inj IVP 20 mg Q12H CHRIS Administration Vancomycin HCl 1,5 00 mg/ 250 mls @ 166.667 mls/hr 09/26/19 19:00 09/28/19 10:42 Sodium Chloride IV 166 mls/hr Q12H CHRIS Administration Protocol Non-Formulary Medi cation 24 mcg 09/25/19 18:00 09/28/19 14:25 Lubiprostone [Am itiza] PO Not Given BID CHRIS Ondansetron HCl 4 mg 09/25/19 16:57 09/28/19 10:44 Zofran IVP 4 mg Q8H PRN Administration vomiting, or N/V if npo Oxycodone HCl 30 mg 09/25/19 16:00 09/28/19 10:46 Oxycodone Ir PO 30 mg Q6H PRN Administration PAIN Quetiapine Fumarat e 100 mg 09/25/19 21:00 09/27/19 21:34 Seroquel PO 100 mg BEDTIME CHRIS Administration Sertraline HCl 200 mg 09/26/19 09:00 09/28/19 10:48 Zoloft PO 200 mg DAILY CHRIS Administration PFSH Anesthesia PFSH: Medical History (Updated 09/28/19 @ 14:24 by Velvet Park MD) Atherosclerotic heart disease of [place] coronary artery without angina pectoris Benign essential hypertension with target blood pressure below 140/90 CAD (coronary artery disease) Chronic prescription opiate use COPD (chronic obstructive pulmonary disease) with chronic bronchitis Diastolic heart failure DVT (deep venous thrombosis) Generalized anxiety disorder History of DVT (deep vein thrombosis) Hx of cervical spinal arthrodesis Hypertension Intervertebral disc disorder with radiculopathy of lumbosacral region Lower abdominal pain Lumbar stenosis with neurogenic claudication Major depressive disorder, recurrent severe without psychotic features Peripheral vascular disease Sleep apnea, unspecified Unspecified dementia without behavioral disturbance Surgical History History of cervical spinal surgery 1979 [facility] C6-C7 laminectomy/fusion/fixation History of heart bypass surgery (~2007) History of hernia surgery 4x History of lumbar surgery [facility]. L3-L4, L4-L5, L5-S1 decompression Hx of CABG Hx of cholecystectomy Family History Father Diabetes Mother Colon cancer Hypertension Social History Smoking and tobacco status: former smoker Alcohol intake: never Household members: significant other Marital status: Current occupational status: disabled History of recent travel: No Data Anesthesia CBC & Chem 7: 09/28/19 04:58 09/28/19 04:58 Other Labs: Laboratory Results - last 48 hr 09/27/19 09/27/19 09/27/19 05:52 05:52 18:16 WBC 7.8 RBC 3.47 L Hgb 10.1 L Hct 33.6 L MCV 96.8 H MCH 29.1 MCHC 30.1 RDW 14.4 Plt Count 210 MPV 10.1 Neut % (Auto) 57.3 Lymph % (Auto) 27.0 [place] % (Auto) 9.8 Eos % (Auto) 5.0 Baso % (Auto) 0.8 Neut # (Auto) 4.5 Lymph # (Auto) 2.1 [place] # (Auto) 0.8 Eos # (Auto) 0.4 Baso # (Auto) 0.1 Nucleated RBC % (auto) 0 Nucleated RBCs # 0.0 Sodium 137 Potassium 3.8 Chloride 103 Carbon Dioxide 26 Anion Gap 11.8 BUN 10 Creatinine 0.5 L Glucose 123 H Calculated Osmolality 281 L Calcium 9.1 Total Bilirubin 0.5 AST 20 ALT 9 Alkaline Phosphatase 64 Total Protein 6.7 Albumin 2.6 L Globulin 4.1 Vancomycin Trough 14.5 09/28/19 09/28/19 04:58 04:58 WBC 7.3 RBC 3.56 L Hgb 10.2 L Hct 32.0 L MCV 89.9 D MCH 28.7 MCHC 31.9 D RDW 13.9 Plt Count 272 MPV 10.3 Neut % (Auto) 55.6 Lymph % (Auto) 29.8 [place] % (Auto) 8.8 Eos % (Auto) 4.5 Baso % (Auto) 1.0 Neut # (Auto) 4.1 Lymph # (Auto) 2.2 [place] # (Auto) 0.6 Eos # (Auto) 0.3 Baso # (Auto) 0.1 Nucleated RBC % (auto) 0 Nucleated RBCs # 0.0 Sodium 137 Potassium 3.5 Chloride 99 Carbon Dioxide 32 H Anion Gap 9.5 BUN 8 Creatinine 0.6 L Glucose 90 Calculated Osmolality 279 L Calcium 9.5 Total Bilirubin 0.4 AST 21 ALT 12 Alkaline Phosphatase 69 Total Protein 7.0 Albumin 3.1 L Globulin 3.9 Vancomycin Trough Micro: Microbiology 09/25/19 14:23 Urine Culture - Final Urine,Clean Catch 09/26/19 19:12 Blood Culture - Preliminary Blood NEGATIVE TO DATE 09/26/19 19:08 Blood Culture - Preliminary Blood NEGATIVE TO DATE 09/25/19 13:05 Blood Culture - Preliminary Blood Coagulase negativ staphylococc 09/25/19 13:00 Blood Culture - Preliminary Blood Coagulase negativ staphylococc Cardiac Studies: No Data to Display
[2019-09-28] MEDS: haloperidol inj 5 mg/mL INJ 1 mL 2 MG IM (16:13)
--- NOTE | 2019-09-28 19:08 | PC.NURSE ---
184 transferred back to med surg. per his bed alert. 150mg of propofol ivp for laci. delma. well.
--- NOTE | 2019-09-28 19:26 | PC.NURSE ---
see anesthesia records for recovery vital ect
[2019-09-28] MEDS: quetiapine 100 mg Tablet PO (20:40)
[2019-09-28] MEDS: sodium chloride 0.9% 1,000 ML 30 ML IV (20:40)
[2019-09-29] VITALS (14 sets, daily range): BP systolic 144–169; BP diastolic 64–82; PULSE 60–67; RESP 17–22; TEMP 36.5–37.1; O2SAT 93–98
[2019-09-29] MEDS: ipratropium-albuterol 3 mL Neb INHALATION ×4 (02:29→20:26)
[2019-09-29] MEDS: famotidine 20 mg/2 mL INJ IVP ×2 (04:01→17:43)
--- NOTE | 2019-09-29 06:47 | PC.NURSE ---
SHIFT SUMMARY Has rested well tonight. Has confusion but has been cooperative and pleasant. To BSC couple of times with 2 assist. Is weak and unsteady. Had a soft BM this morning. Has had no c/o pain since going to sleep last evening. Sitter has been at bedside throughout shift. IV infusing without difficulty at 30ml/hr rate
[2019-09-29 07:03] LABS: Basophils # 0.1 10^3/uL (0.0-0.1); Basophils % 1.1 %; Eosinophils # 0.7 10^3/uL (0.0-0.8); Eosinophils % 10.5 %; Hematocrit 35.3 % (42.0-52.0); Hemoglobin 11.3 g/dL (11.7-16.6); Lymphocytes # 2.7 10^3/uL (0.8-4.8); Mean Corpuscular Volume 90.5 fL (80-94); Mean Platelet Volume 10.1 fL (7.4-10.4); Monocytes # 0.5 10^3/uL (0.2-0.9); Monocytes % 7.4 %; Neutrophils # 2.7 10^3/uL (1.8-7.7); Neutrophils % 40.8 %; Nucleated Red Blood Cells % 0 %; Platelet Count 299 10^3/cmm (130-400); Red Cell Distribution Width 14.1 % (12.1-15.1); White Blood Count 6.7 10^3/uL (4.0-10.0)
[2019-09-29 07:26] LABS: Alanine Aminotransferase 13 U/L (0-41); Albumin Level 3.2 g/dL (3.5-5.2); Alkaline Phosphatase 73 IU/L (40-130); Anion Gap 10.8 (5-19); Aspartate Amino Transferase 17 U/L (0-40); Blood Urea Nitrogen 7 mg/dL (8-23); Calcium 9.8 mg/dL (8.5-10.5); Carbon Dioxide 30 mmol/L (22-29); Chloride 101 mmol/L (98-107); Globulin 4.2 g/dL (1.3-4.6); Glucose 95 mg/dL (65-115); Osmolality Calculated 282 mOsm/kg (285-295); Potassium 3.8 mmol/L (3.5-5.1); Sodium 138 mmol/L (136-145); Total Bilirubin 0.4 mg/dL (0.15-1.2); Total Protein 7.4 g/dL (6.6-8.7)
[2019-09-29] MEDS: apixaban 5 mg Tablet PO ×2 (08:29→17:44)
[2019-09-29] MEDS: carvedilol 12.5 mg Tablet PO ×2 (08:29→17:44)
[2019-09-29] MEDS: sertraline 100 mg Tablet 200 MG PO (08:29)
[2019-09-29] MEDS: polyethylene glycol 3350 Pkt 17 gm PO ×2 (08:29→17:49)
[2019-09-29] MEDS: budesonide 0.5 mg/2 mL Neb INHALATION ×2 (08:31→20:26)
[2019-09-29] MEDS: oxyCODONE IR 30 mg Tablet PO (14:15)
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
[2019-09-29] MEDS: quetiapine 100 mg Tablet PO (20:31)
[2019-09-30] VITALS (11 sets, daily range): BP systolic 137–171; BP diastolic 62–86; PULSE 59–79; RESP 16–20; TEMP 36.7–37.1; O2SAT 88–98
[2019-09-30] MEDS: oxyCODONE IR 30 mg Tablet PO ×2 (00:32→08:42)
[2019-09-30] MEDS: ipratropium-albuterol 3 mL Neb INHALATION ×2 (02:26→08:12)
[2019-09-30] MEDS: sodium chloride 0.9% 1,000 ML 30 ML IV (03:52)
[2019-09-30] MEDS: famotidine 20 mg/2 mL INJ IVP (03:52)
[2019-09-30 05:38] LABS: Basophils # 0.1 10^3/uL (0.0-0.1); Basophils % 0.9 %; Eosinophils # 0.8 10^3/uL (0.0-0.8); Eosinophils % 10.2 %; Hematocrit 31.5 % (42.0-52.0); Hemoglobin 10.1 g/dL (11.7-16.6); Lymphocytes # 2.7 10^3/uL (0.8-4.8); Lymphocytes % 34.3 %; Mean Corpuscular HGB Conc 32.1 g/dL (30.0-36.0); Mean Corpuscular Hemoglobin 28.7 pg (28.0-34.0); Mean Corpuscular Volume 89.5 fL (80-94); Mean Platelet Volume 10.3 fL (7.4-10.4); Monocytes # 0.7 10^3/uL (0.2-0.9); Monocytes % 8.7 %; Neutrophils # 3.6 10^3/uL (1.8-7.7); Neutrophils % 45.8 %; Nucleated Red Blood Cells % 0 %; Platelet Count 276 10^3/cmm (130-400); Red Blood Count 3.52 10^6/uL (4.1-5.3); White Blood Count 7.8 10^3/uL (4.0-10.0)
[2019-09-30 06:05] LABS: Alanine Aminotransferase 11 U/L (0-41); Albumin Level 2.9 g/dL (3.5-5.2); Alkaline Phosphatase 62 IU/L (40-130); Anion Gap 13.6 (5-19); Blood Urea Nitrogen 6 mg/dL (8-23); Calcium 9.3 mg/dL (8.5-10.5); Carbon Dioxide 27 mmol/L (22-29); Chloride 102 mmol/L (98-107); Globulin 3.5 g/dL (1.3-4.6); Glucose 78 mg/dL (65-115); Osmolality Calculated 283 mOsm/kg (285-295); Potassium 3.6 mmol/L (3.5-5.1); Sodium 139 mmol/L (136-145); Total Bilirubin 0.3 mg/dL (0.15-1.2); Total Protein 6.4 g/dL (6.6-8.7)
[2019-09-30 06:11] LABS: Aspartate Amino Transferase 17 U/L (0-40)
[2019-09-30] MEDS: budesonide 0.5 mg/2 mL Neb INHALATION (08:12)
[2019-09-30] MEDS: polyethylene glycol 3350 Pkt 17 gm PO (08:41)
[2019-09-30] MEDS: carvedilol 12.5 mg Tablet PO (08:43)
[2019-09-30] MEDS: sertraline 100 mg Tablet 200 MG PO (08:43)
[2019-09-30] MEDS: apixaban 5 mg Tablet PO (08:43)
--- NOTE | 2019-09-30 13:14 | PM.DCS ---
Discharge Providers Date of Admission: 09/25/19 16:57 Date of Discharge: September 30, 2019 Attending Provider at Admission: Josias Busby MD Attending Provider at Discharge: Matthew Kenney Primary Care Provider: MEGGAN Obando Diagnoses at Discharge Discharge Diagnosis (1) Gram-positive bacteremia: Status: Acute (2) Generalized weakness: Status: Acute (3) CAD (coronary artery disease): Status: Acute (4) Diastolic heart failure: Status: Acute (5) DVT (deep venous thrombosis): Status: Acute (6) Hypertension: Status: Acute (7) Peripheral vascular disease: Status: Acute (8) Chronic prescription opiate use: Status: Acute (9) Unspecified dementia without behavioral disturbance: Status: Acute (10) Major depressive disorder, recurrent severe without psychotic features: Status: Acute (11) Constipation: Status: Acute Reason for Visit Reason for Visit: Reason For Visit: SOB, Weakness, Cough Hospital Course Hospital Course: 79-year-old gentleman with history of CAD, status post CABG, chronic diastolic CHF, HTN, history of DVT on Eliquis, HTN, PVD, dementia, was admitted with complaints of generalized weakness. Mild leukocytosis of 11,000 noted on presentation. Influenza was negative. TSH was normal. CT chest, abdomen pelvis with subsegmental atelectasis, no acute abnormality otherwise. Blood cultures collected on presentation came back positive in 2 bottles out of 2 sets with coagulase-negative staph/staph hominis. Due to his nonspecific symptoms of fatigue, him not being very good historian, positive blood culture mild thickening noted on mitral valve, underwent more detail assessment for possible endocarditis. He received empiric treatment with vancomycin while in the hospital. Repeat blood culture has been negative. MELIZA without sign of valve vegetation. He has remained stable in the hospital, without signs of developing infection. With chronic lower back pain, however, without is noted to have generalized deconditioning, initially consideration was given for placement to SNF for rehabilitation. He states that today he feels great and wants to go home. He is declining this option, preferring to return home with his caregiver who sates will be staying with him. Due to no clear source for infection and suspicion this is rather contamination although cannot rule out low change of bacteremia, will complete 2 weeks antibiotic with 9 more days of linezolid. Discussed also with PCP regarding this and follow up survey blood culture to rule out any recurrence. Would continue to monitor his functional capacity. Consider arranging follow up with neurology regarding memory issues. Patient is able to hold a conversation and understands problems presented to him, however, is forgetful day-to-day. Occasionally with some symptoms of sundowning. Home health care is arranged to follow up on his progress and continue therapy. Physical Exam Const: COMMON NORMALS: no apparent distress HENMT: COMMON NORMALS: oropharynx normal Neck/C-Spine: COMMON NORMALS: no JVD Resp: COMMON NORMALS: normal respiratory effort and clear to auscultation bilaterally AUSCULTATION: clear to auscultation bilaterally Cardio: COMMON NORMALS: no JVD, regular rhythm, S1 normal heart sound, S2 normal heart sound and no murmurs RHYTHM: regular rhythm HEART SOUNDS: S1 normal and S2 normal GI: COMMON NORMALS: normal to inspection, nondistended, normoactive bowel sounds and soft to palpation PALPATION: Yes soft OTHER: Extremity: COMMON NORMALS: no joint enlargement and no pedal edema Neuro: COMMON NORMALS: moves all extremities Skin: COMMON NORMALS: no rashes or lesions noted GENERAL SKIN EXAM: no rashes or lesions noted Discharge Data Data Completed and Pending: Completed Studies During Hospitalization Category Date Time Status CT chest abd pel wo con Urgent Cat Scan 09/25/19 15:[address] lumbar spine w o con* [id number] Routi ne Cat Scan 09/26/19 17:[address] thoracic spin wo con* [id number] Rout ine Cat Scan 09/26/19 17:54 Completed XR chest 1V [place] ble [id number] Urgent Exams 09/25/19 12:31 Completed CV echo complete* [id number] Routine Ultrasound 09/27/19 17:53 Completed CV echo transesop hageal [id number] Routi ne Ultrasound 09/28/19 11:35 [place] [id number] Urgent Ultrasound 09/26/19 16:22 Completed Pending at discharge Category Date Time Status Blood Culture Sta t Lab 09/25/19 13:00 Results Blood Culture Sta t Lab 09/26/19 19:12 Results Complete Blood Co unt w/Auto AM LABS Lab 10/01/19 04:00 Ordered Comprehensive Met abolic Panel AM LA BS Lab 10/01/19 04:00 Ordered Labs from last 24 hours 09/30/19 09/30/19 04:18 04:18 WBC 7.8 RBC 3.52 L Hgb 10.1 L Hct 31.5 L MCV 89.5 MCH 28.7 MCHC 32.1 RDW 14.0 Plt Count 276 MPV 10.3 Neut % (Auto) 45.8 Lymph % (Auto) 34.3 Peach % (Auto) 8.7 Eos % (Auto) 10.2 Baso % (Auto) 0.9 Neut # (Auto) 3.6 Lymph # (Auto) 2.7 [place] # (Auto) 0.7 Eos # (Auto) 0.8 Baso # (Auto) 0.1 Nucleated RBC % (a uto) 0 Nucleated RBCs # 0.0 Sodium 139 Potassium 3.6 Chloride 102 Carbon Dioxide 27 Anion Gap 13.6 BUN 6 L Creatinine 0.6 L Glucose 78 Calculated Osmolal ity 283 L Calcium 9.3 Total Bilirubin 0.3 AST 17 ALT 11 Alkaline Phosphata se 62 Total Protein 6.4 L Albumin 2.9 L Globulin 3.5 Vitals: Last Vital Signs Temp 98.6 F 09/30/19 11:06 Pulse 67 09/30/19 11:06 Resp 16 09/30/19 11:06 BP 137/62 09/30/19 11:06 Pulse Ox 98 09/30/19 11:06 Discharge Plan Discharge Patient Disposition: Home Health Service Condition: Stable Prescriptions: New polyethylene glycol 3350 [Miralax] 17 gram Powder In Packet 17 g PO BID Qty: 60 RF: 0 linezolid 600 mg tablet 600 mg PO BID 9 Days Qty: 18 RF: 0 Continued Eliquis 5 mg tablet 5 mg PO BID RF: 0 Amitiza 24 mcg capsule 24 mcg PO BID RF: 0 oxycodone 30 mg tablet See Rx Instructions .ROUTE .COMPLEX RF: 0 baclofen 20 mg tablet 20 mg PO TID PRN (Reason: Spasms) RF: 0 sertraline [Zoloft] 100 mg tablet 200 mg PO DAILY Qty: 60 RF: 2 carvedilol [Coreg] 12.5 mg tablet 12.5 mg PO BID Qty: 60 RF: 0 ProAir HFA 90 mcg/actuation HFA aerosol inhaler 2 puff INHALATION QID PRN (Reason: Shortness Of Breath) RF: 0 Seroquel 100 mg tablet 100 mg PO BEDTIME RF: 0 trazodone 100 mg tablet 300 mg PO BEDTIME PRN (Reason: Sleep) RF: 0 No Action nitroglycerin [Nitrostat] 0.4 mg tablet, sublingual 0.4 mg SUBLINGUAL Q5M PRN (Reason: Chest Pain) RF: 0 Multiple Vitamins Tablet 1 tab PO DAILY RF: 0 Lasix 40 mg Tablet 40 mg PO BID RF: 0 lisinopril 20 mg tablet 20 mg PO DAILY RF: 0 amlodipine 10 mg tablet 10 mg PO DAILY RF: 0 Discharge Orders: Discharge Order (Routine); Ordered 09/30/19 Ordered By: Matthew Kenney Other Ambulatory Orders: Complete Blood Count w/Auto (Routine) Timeframe: 3 Days Location: Determined by Patient Ordered By: Matthew Kenney Blood Culture (Routine) Timeframe: 3 Weeks Facility: [facility] - Location: Lab - Main Lab Ordered By: Matthew Kenney [place] [facility] [place] [facility] [place] Brisa Jensen FNP-C [Primary Care Provider] - 10/04/19 10:40 am Discharge Diet: Cardiac Discharge Activity: Increase activity as tolerated, As per PT/OT instructions and Oxygen as instructed Patient Instructions: Linezolid (By mouth), Polyethylene Glycol 3350 (By mouth) Activity Restrictions/Additional Instructions: Continue oxygen at home. Target saturation 88-92%. Complete antibiotic course. After finished, in 3 weeks please work with your primary care doctor to repeat blood culture. If you experience fever, shortness of breath, chest pain, change in mental status, or other unusual symptoms please seek medical attention without delay. Discharge Attestations Time Spent in Discharge Care*: greater than 30 min Quality Metrics Clinical Quality Measures During this hospital stay, did patient experience: None Coding Level of Care Code Acute Pellet Machine Operator for g Fwd Diagnoses Gram-positive bacteremia R78.81 Generalized weakness R53.1 CAD (coronary artery disease) I25.10 Diastolic heart failure I50.30 DVT (deep venous thrombosis) I82.409 Hypertension I10 Peripheral vascular disease I73.9 Chronic prescription opiate use Z79.891 Unspecified dementia without behavioral disturbance F03.90 Major depressive disorder, recurrent severe without psychotic features F33.2 Constipation K59.00
--- NOTE | 2019-09-30 15:13 | PC.NURSE ---
Patient discharge given to patient and caregiver, Stefanie. Caregiver was asked if she had brought any oxygen with her for patient to wear home. Patient and caregiver were told patient needed to wear oxygen at all times at 2 LPM and we really shouldn't let patient leave until he has oxygen to wear. Caregiver insisted that patient usually does fine on his car rides but would make sure to get it on him as soon as they got home. Thread Inspector, Carolynn, then came out and instructed patient and caregiver to go to [employer] to tow picker a portable oxygen system that was ordered for the patient. Both the patient and caregiver voiced understanding.
--- NOTE | 2019-09-30 15:39 | PC.NURSE ---
HAND OFF REPORT SHEET FAXED TO [facility].
--- NOTE | 2019-10-01 13:49 | PC.SOCIAL ---
Call received from Abbey at [facility] regarding interaction with Sertraline and Linezolid. Per Dr Pablito benoit to continue this for the short time while on Linezolid. Updated Abbey at [facility].
== END 2019-09-30 15:20 | disposition home or self-care (01) | DRG 872 ==
LOC: ER 14:53 → MEDSURG 15:10 → ICU 09-28 16:57 → MEDSURG 09-28 18:46
PROVIDERS: Admitting Provider Student in an Organized Health Care Education/Training Program; Emergency Provider Emergency Medicine; Family Provider Nurse Practitioner; PCP Nurse Practitioner; Visit Provider Internal Medicine
DX: R78.81 Bacteremia (principal); I50.30 Unspecified diastolic (congestive) heart failure; F33.2 Major depressive disorder, recurrent severe without psychotic features; I82.409 Acute embolism and thrombosis of unspecified deep veins of unspecified lower extremity; R53.1 Weakness; I25.10 Atherosclerotic heart disease of native coronary artery without angina pectoris; I11.0 Hypertensive heart disease with heart failure; I73.9 Peripheral vascular disease, unspecified; F03.90 Unspecified dementia, unspecified severity, without behavioral disturbance, psychotic disturbance, mood disturbance, and anxiety; M54.5 Low back pain; G89.29 Other chronic pain; F45.42 Pain disorder with related psychological factors; K21.9 Gastro-esophageal reflux disease without esophagitis; G47.33 Obstructive sleep apnea (adult) (pediatric); F41.9 Anxiety disorder, unspecified; I08.0 Rheumatic disorders of both mitral and aortic valves; Z66 Do not resuscitate; Z87.891 Personal history of nicotine dependence; Z79.52 Long term (current) use of systemic steroids; Z79.899 Other long term (current) drug therapy
CPT/HCPCS: 12345; 36415; 36600; 71045; 71250; 72128; 72131; 74176; 80053; 80202; 80306; 81001; 82803; 83540; 83550; 83605; 83880; 84145; 85025; 87040; 87077; 87086; 87186; 87205; 87449; 87641; 87804; 90471; 90732; 93005; 93010; 93306; 93312; 93320; 93325; 93970; 94640; 96372; 96375; 97110; 97162; 97166; 97530; 99284; G0378; J1630; J1940; J2370; J2405; J2704; J3370; J3490; J7030; J7050; J7611; J7626

== ENCOUNTER → 2019-10-07 11:12 | Outpatient (BNVA) | payer MEDICARE, MEDICAID, SELFPAY | PROVIDERS: Family Provider Nurse Practitioner; PCP Nurse Practitioner; Visit Provider Nurse Practitioner | DX: J44.9 Chronic obstructive pulmonary disease, unspecified (principal); I25.10 Atherosclerotic heart disease of native coronary artery without angina pectoris; I10 Essential (primary) hypertension; F03.90 Unspecified dementia, unspecified severity, without behavioral disturbance, psychotic disturbance, mood disturbance, and anxiety; I50.30 Unspecified diastolic (congestive) heart failure; Z79.899 Other long term (current) drug therapy | CPT/HCPCS: 85025 ==

== ENCOUNTER → 2019-10-29 12:18 | Outpatient (BNVA) | payer MEDICARE, MEDICAID, SELFPAY | PROVIDERS: Family Provider Nurse Practitioner; PCP Nurse Practitioner; Referring Provider Emergency Medicine; Visit Provider Specialist | DX: T14.8XXA Other injury of unspecified body region, initial encounter (principal) | CPT/HCPCS: 73080 ==

== ENCOUNTER 2020-01-27 21:29 | Emergency (ER) | payer MEDICARE, MEDICAID, SELFPAY ==
[2020-01-27 21:47] VITALS: BP 161/79; PULSE 70; RESP 14; TEMP 37; O2SAT 95; BMI 27.1
--- NOTE | 2020-01-27 21:50 | XRR_ITS ---
PROCEDURE INFORMATION: Exam: XR Chest, 1 View Exam date and time: 01/27/2020 10:31 PM Age: 80 years old Clinical indication: Prior surgery; Surgery date: 6+ months; Surgery type: Heart arter stent 2006. Bypass surgery 2007. Cabg; Patient HX: C/O shortness of breath along with chills. Nonproductive cough -chronic. Wheezing. HX of chf. HX of copd TECHNIQUE: Imaging protocol: XR of the chest Views: 1 view. COMPARISON: CR XR chest 1V portable [id number] 09/25/2019 1:10 PM FINDINGS: Lungs: Minor interstitial scarring left lower lung. Pleural space: Unremarkable. No pleural effusion. No pneumothorax. Heart/Mediastinum: Stable heart size. Vasculature: Tortuous calcified thoracic aorta. Bones/joints: Postoperative sternotomy. Osteopenia. Degenerative arthritis of the right shoulder. XR/XR chest 1V portable [id number] IMPRESSION: No acute cardiopulmonary process.
--- NOTE | 2020-01-27 21:50 | ECG_ITS ---
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 Measurements Intervals Snook Rate: 71 P: 61 PA: 203 QRS: 34 QRSD: 112 T: 29 QT: 453 QTc: 494 Interpretive Statements SINUS RHYTHM INCOMPLETE RIGHT BUNDLE BRANCH BLOCK [90+ ms QRS DURATION, TERMINAL R IN V1/V2, 40+ ms S IN I/aVL/V4/V5/V6] PROLONGED QT INTERVAL Compared to ECG 09/25/2019 13:06:14 Incomplete right bundle-branch block now present First degree AV block no longer present Electronically Signed On 01-28-2020 16:25:54 CDT by Ra Joya M.D. [id number]
[2020-01-27 22:41] LABS: Basophils # 0.1 10^3/uL (0.0-0.1); Basophils % 0.6 %; Eosinophils # 0.7 10^3/uL (0.0-0.8); Eosinophils % 5.1 %; Hematocrit 40.4 % (42.0-52.0); Hemoglobin 12.6 g/dL (11.7-16.6); Lymphocytes # 2.5 10^3/uL (0.8-4.8); Lymphocytes % 17.1 %; Mean Corpuscular HGB Conc 31.2 g/dL (30.0-36.0); Mean Corpuscular Hemoglobin 28.1 pg (28.0-34.0); Mean Platelet Volume 9.7 fL (7.4-10.4); Monocytes # 1.1 10^3/uL (0.2-0.9); Monocytes % 7.5 %; Neutrophils # 9.99 10^3/uL (1.8-7.7); Neutrophils % 69.4 %; Nucleated Red Blood Cells % 0 %; Platelet Count 250 10^3/cmm (130-400); Red Blood Count 4.49 10^6/uL (4.1-5.3); Red Cell Distribution Width 14.2 % (12.1-15.1); White Blood Count 14.4 10^3/uL (4.0-10.0)
[2020-01-27 23:15] LABS: Alanine Aminotransferase 10 U/L (0-41); Albumin Level 4.2 g/dL (3.5-5.2); Alkaline Phosphatase 97 IU/L (40-130); Anion Gap 14.1 (5-19); Aspartate Amino Transferase 12 U/L (0-40); Blood Urea Nitrogen 13 mg/dL (8-23); Calcium 9.6 mg/dL (8.5-10.5); Carbon Dioxide 27 mmol/L (22-29); Chloride 101 mmol/L (98-107); Globulin 3.7 g/dL (1.3-4.6); Glucose 117 mg/dL (65-115); NT Pro B Type Natriuretic Pept 530 pg/mL (0-450); Osmolality Calculated 283 mOsm/kg (285-295); Potassium 4.1 mmol/L (3.5-5.1); Sodium 138 mmol/L (136-145); Total Bilirubin 0.3 mg/dL (0.15-1.2); Total Protein 7.9 g/dL (6.6-8.7)
--- NOTE | 2020-01-27 23:25 | W.ED.SOB ---
HPI - SOB/Dyspnea General: Chief Complaint: Shortness of Breath/Dyspnea Stated Complaint: cough/sob Time Seen by Provider: 01/27/20 22:12 Source: patient Mode of arrival: ambulatory Limitations: no limitations History of Present Illness: HPI Narrative: 80-year-old male has history of CHF and COPD states he has had shortness of breath along with some chills. He denies any fever at home as he does not have a thermometer. He states that he has had a nonproductive cough that is chronic. He denies any chest pain. Denies any worsening or improving factors. MD elicited complaint: shortness of breath Associated symptoms: Deny abdominal pain, chest pain, fever(s), nausea or vomiting Review of Systems Const: Denies: fever(s), chills, body aches or change in appetite Eyes: Denies: blurry vision or eye discomfort ENMT: Denies: throat pain or dental pain Card: Denies: chest pain Resp: Reports: dyspnea and wheezing GI: Denies: abdominal pain, nausea, vomiting or diarrhea : Denies: dysuria Musc: Denies: neck pain or back pain Skin/Breast: Denies: rash Neuro: Denies: headache(s) Psych: Denies: depression Jm/Lymph: Denies: easy bruising All/Imm: Denies: urticaria PFSH ED PFSH: Medical History Atherosclerotic heart disease of [place] coronary artery without angina pectoris Benign essential hypertension with target blood pressure below 140/90 CAD (coronary artery disease) Chronic constipation Chronic prescription opiate use COPD (chronic obstructive pulmonary disease) with chronic bronchitis Diastolic heart failure DVT (deep venous thrombosis) Dyslipidemia Generalized anxiety disorder 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 History of DVT (deep vein thrombosis) Hx of cervical spinal arthrodesis Hypertension Intervertebral disc disorder with radiculopathy of lumbosacral region Lower abdominal pain Lumbar disc disease Lumbar spondylosis Lumbar stenosis with neurogenic claudication Major depressive disorder, recurrent severe without psychotic features Peripheral vascular disease Scoliosis of lumbar spine Skin tear Sleep apnea, unspecified Unspecified dementia without behavioral disturbance Surgical History History of cervical spinal surgery 1979 [facility] C6-C7 laminectomy/fusion/fixation History of heart artery stent (~2006) History of heart bypass surgery (~2007) History of hernia surgery 4x History of knee surgery Right History of lumbar surgery [address] [place] [address]. L3-L4, L4-L5, L5-S1 decompression History of uvulopalatopharyngoplasty Hx of CABG Hx of cholecystectomy Family History Father Diabetes Mother Colon cancer Hypertension Social History Smoking and tobacco status: former smoker Alcohol intake: never Household members: significant other Marital status: Current occupational status: disabled History of recent travel: No Physical Exam Const: COMMON NORMALS: no acute distress, patient oriented x3 and healthy appearing HENMT: COMMON NORMALS: normocephalic and atraumatic HEAD & SCALP: normocephalic and atraumatic Eye: COMMON NORMALS: Equal, round and reactive pupils present and EOMs intact bilaterally PUPIL: Yes Equal, round and reactive pupils present Neck/C-Spine: COMMON NORMALS: full ROM and supple Chest: COMMONS NORMALS: normal inspection of the chest and normal palpation of entire chest wall Resp: COMMON NORMALS: normal respiratory effort, No retractions and No use of accessory muscles AUSCULTATION: wheezes Cardio: COMMON NORMALS: regular rate, regular rhythm and No murmurs present (Cardio) RATE: regular rate RHYTHM: regular rhythm GI: COMMON NORMALS: Normal to inspection, nondistended, normoactive bowel sounds present, Soft to palpation, non-tender and no masses PALPATION: Yes Soft to palpation Extremity: COMMON NORMALS: normal to inspection and full ROM Neuro: COMMON NORMALS: patient oriented x3, moves all extremities and no focal motor deficits Psych: COMMON NORMALS: mental status grossly normal, Normal thought process present and cooperative THOUGHT PROCESS: Normal thought process present Skin: COMMON NORMALS: no rashes or lesions noted and no wounds GENERAL SKIN EXAM: no rashes or lesions noted Course Vital Signs: Vital signs: Vital Signs Temperature 98.4 F 01/27/20 23:35 Pulse Rate 55 L 01/28/20 00:08 Respiratory Rate 18 01/28/20 00:05 Blood Pressure 144/75 01/27/20 23:35 Pulse Oximetry 93 01/28/20 00:05 MDM - SOB/Dyspnea MDM Narrative: Medical decision making narrative: Anurag presents here with shortness of breath that is chronic in nature. He has been in no acute failure here and lab work is normal. CT shows no signs of pneumonia or pulmonary bruising. Patient has not required oxygen here and is stable for discharge. He is to follow-up with his primary care doctor in 2 to 4 days and return if worsening. Lab Data: Labs: Lab Results 01/27/20 01/27/20 Range/Units 22:30 22:30 WBC 14.4 H (4.0-10.0) 10^3/ uL RBC 4.49 (4.1-5.3) 10^6/u L Hgb 12.6 (11.7-16.6) g/dL Hct 40.4 L (42.0-52.0) % MCV 90.0 (80-94) fL MCH 28.1 (28.0-34.0) pg MCHC 31.2 (30.0-36.0) g/dL RDW 14.2 (12.1-15.1) % Plt Count 250 (130-400) 10^3/c mm MPV 9.7 (7.4-10.4) fL Neut % (Auto) 69.4 % Lymph % (Auto) 17.1 % [place] % (Auto) 7.5 % Eos % (Auto) 5.1 % Baso % (Auto) 0.6 % Neut # (Auto) 9.99 H (1.8-7.7) 10^3/u L Lymph # (Auto) 2.5 (0.8-4.8) 10^3/u L [place] # (Auto) 1.1 H (0.2-0.9) 10^3/u L Eos # (Auto) 0.7 (0.0-0.8) 10^3/u L Baso # (Auto) 0.1 (0.0-0.1) 10^3/u L Nucleated RBC % (a uto) 0 % Nucleated RBCs # 0.0 /100WBC Sodium 138 (136-145) mmol/L Potassium 4.1 (3.5-5.1) mmol/L Chloride 101 (98-107) mmol/L Carbon Dioxide 27 (22-29) mmol/L Anion Gap 14.1 (5-19) BUN 13 (8-23) mg/dL Creatinine 0.8 (0.7-1.2) mg/dL Glucose 117 H (65-115) mg/dL Calculated Osmolal ity 283 L (285-295) mOsm/k g Calcium 9.6 (8.5-10.5) mg/dL Total Bilirubin 0.3 (0.15-1.2) mg/dL AST 12 (0-40) U/L ALT 10 (0-41) U/L Alkaline Phosphata se 97 (40-130) IU/L NT-Pro-B Natriuret Pep 530 H (0-450) pg/mL Total Protein 7.9 (6.6-8.7) g/dL Albumin 4.2 (3.5-5.2) g/dL Globulin 3.7 (1.3-4.6) g/dL Imaging Data^: CT Head: Attestation: I personally reviewed and interpreted this imaging study as follows: Radiologist's impression: [place] [address] CT Scan Report Signed Patient: Anurag Rios Unit #: [id number] : 1940 Age/Sex: 80 / M ADM Date: 01/27/20 Loc: ER Room/Bed: Attending Dr: Ordering Provider/Ordering MD: Gaston Ruiz MD Date of Service: 01/27/20 Procedure(s): CT angio chest PE [facility] [address] Accession Number(s): [id number] Report Number: [id number] PROCEDURE INFORMATION: Exam: CT Angiography Chest With Contrast Exam date and time: 01/27/2020 11:54 PM Age: 80 years old Clinical indication: Dyspnea; Prior surgery; Surgery date: 6+ months; Additional info: SOB TECHNIQUE: Imaging protocol: Computed tomographic angiography of the chest with intravenous contrast. 3D rendering: MIP and/or 3D reconstructed images were created by the technologist. Radiation optimization: All CT scans at this facility use at least one of these dose optimization techniques: automated exposure control; mA and/or kV adjustment per patient size (includes targeted exams where dose is matched to clinical indication); or iterative reconstruction. Contrast material: VISI; Contrast volume: 95 ml; Contrast route: INTRAVENOUS (IV); COMPARISON: CTA Chest-Pulmonary Emb [id number] 07/02/2018 8:25 PM RADIATION DOSE METRICS: Total DLP (mGy-cm): 596.44 FINDINGS: Limitations: Study is somewhat limited by patient respiratory motion. Pulmonary arteries: There is no evidence of filling defects within the pulmonary arterial circulation to suggest pulmonary embolism. Aorta: There are atherosclerotic changes in the aortic arch without evidence of aneurysm or dissection. Lungs: There is mild dependent atelectasis at the right lung base. Pleural space: Unremarkable. No pneumothorax. No pleural effusion. Heart: Sternotomy wires and mediastinal surgical clips are present, consistent with previous coronary arterial bypass grafting. Lymph nodes: There are small mediastinal lymph nodes. Liver: There is a small cyst in the liver not changed from previous. Bones/joints: Unremarkable. No acute fracture. Soft tissues: Unremarkable. CT/CT angio chest PE protcl [id number] IMPRESSION: No evidence of pulmonary embolism. Discharge Plan Discharge Patient Disposition: Home, Self-Care Clinical Impression: COPD exacerbation Condition: Stable Prescriptions: No Action Seroquel 100 mg tablet 100 mg PO BEDTIME Qty: 30 RF: 1 sertraline [Zoloft] 100 mg tablet 200 mg PO DAILY Qty: 60 RF: 1 trazodone 100 mg tablet 300 mg PO BEDTIME PRN (Reason: Sleep) Qty: 90 RF: 1 prednisone 20 mg tablet 20 mg PO BID 5 Days Qty: 10 RF: 0 Amitiza 24 mcg capsule 24 mcg PO BID 30 Days Qty: 60 RF: 2 (DME) Coloplast Paste Paste See Rx Instructions .ROUTE .MEDSUPPLY Qty: 60 RF: 5 Eliquis 5 mg tablet 5 mg PO BID RF: 0 oxycodone 30 mg tablet See Rx Instructions .ROUTE .COMPLEX RF: 0 baclofen 20 mg tablet 20 mg PO TID PRN (Reason: Spasms) RF: 0 lisinopril 20 mg tablet 20 mg PO DAILY Qty: 90 RF: 3 ProAir HFA 90 mcg/actuation HFA aerosol inhaler 2 puff INHALATION QID PRN (Reason: Shortness Of Breath) Qty: 8.5 RF: 2 carvedilol 12.5 mg tablet 12.5 mg PO BID Qty: 60 RF: 3 amlodipine 10 mg tablet 10 mg PO DAILY Qty: 90 RF: 3 nitroglycerin [Nitrostat] 0.4 mg tablet, sublingual 0.4 mg SUBLINGUAL Q5M PRN (Reason: Chest Pain) Qty: 100 RF: 2 Multiple Vitamins Tablet 1 tab PO DAILY RF: 0 Miralax 17 gram Powder In Packet 17 g PO BID Qty: 60 RF: 0 Lasix 40 mg Tablet 40 mg PO BID PRN (Reason: Edema) Qty: 0 RF: 0 Discharge Orders: Discharge Order (Routine); Ordered 01/28/20 Ordered By: Gaston Ruiz Referrals: Brisa Jensen FNP-C [Primary Care Provider] - 1-3 days Discharge Diet: Advance as tolerated Discharge Activity: Resume usual activity Patient Instructions: Chronic Obstructive Pulmonary Disease (ED) Coding Level of Care Code ED Data Developer for Katiuska Fwd Exam Comprehensive
[2020-01-27 23:35] VITALS: BP 144/75; PULSE 70; RESP 20; TEMP 36.9; O2SAT 91
[2020-01-28] MEDS: ipratropium-albuterol 3 mL Neb INHALATION (00:04)
[2020-01-28 00:05] VITALS: PULSE 56; RESP 18; O2SAT 93
[2020-01-28 00:08] VITALS: PULSE 55
[2020-01-28] MEDS: iodixanol 320 mg/mL 100mL Btl IV (00:35)
--- NOTE | 2020-01-28 01:06 | PC.NURSE ---
i have reviewed that assessment of this patient and agree
[2020-01-28 02:54] VITALS: BP 140/85; PULSE 88; RESP 20; O2SAT 95
== END 2020-01-28 02:15 | disposition home or self-care (01) ==
PROVIDERS: Emergency Provider Emergency Medicine; PCP Nurse Practitioner
DX: J44.1 Chronic obstructive pulmonary disease with (acute) exacerbation (principal); Z79.01 Long term (current) use of anticoagulants; I25.10 Atherosclerotic heart disease of native coronary artery without angina pectoris; I11.0 Hypertensive heart disease with heart failure; I50.30 Unspecified diastolic (congestive) heart failure; E78.5 Hyperlipidemia, unspecified; Z95.1 Presence of aortocoronary bypass graft; Z87.891 Personal history of nicotine dependence
CPT/HCPCS: 12345; 36415; 71045; 71275; 80053; 83880; 85025; 93005; 94640; 96374; 99283; 99284; J2930; Q9967

== ENCOUNTER → 2020-03-03 12:57 | Outpatient (BNVA) | payer MEDICARE, MEDICAID, SELFPAY | PROVIDERS: PCP Nurse Practitioner; Visit Provider Licensed Practical Nurse | DX: Z53.9 Procedure and treatment not carried out, unspecified reason (principal) ==

== ENCOUNTER 2020-03-09 17:07 | Inpatient (IN) | payer MEDICARE, MEDICAID, SELFPAY ==
[2020-03-09 17:13] VITALS: BP 120/78; PULSE 73; RESP 18; O2SAT 97; BMI 24.4
--- NOTE | 2020-03-09 17:22 | XRR_ITS ---
PROCEDURE INFORMATION: Exam: XR Chest, 1 View Exam date and time: 03/09/2020 6:12 PM Age: 80 years old Clinical indication: Other: AMS; Patient HX: Unable to obtain history TECHNIQUE: Imaging protocol: XR of the chest Views: 1 view. COMPARISON: CR XR chest 1V portable [id number] 01/27/2020 10:06 PM FINDINGS: Lungs: No consolidation. Pleural space: No pleural effusion. No pneumothorax. Heart/Mediastinum: No cardiomegaly. Bones/joints: Previous median sternotomy. XR/XR chest 1V portable [id number] IMPRESSION: No acute findings.
--- NOTE | 2020-03-09 17:23 | ED_ITS ---
Documented by User: SCOTT Renteria 03/09/20 21:33 HPI - Altered Mental Status General: Chief Complaint: Altered Mental Status Stated Complaint: UTI Time Seen by Provider: 03/09/20 17:09 Source: EMS Mode of arrival: EMS Limitations: altered mental status History of Present Illness: HPI narrative: Patient is an 80-year-old male who presents to ED today via EMS for complaints of altered mental status. Patient lives along with his who called an ambulance stating over the past 3 to 4 days he is becoming increasingly confused. Patient does have dementia but states this has worsened over that time period. EMS states when they got patient up, he had been incontinent and they reported that his urine was extremely odorous. did not report any fevers. He has not been coughing or having any difficulty with breathing. Patient is on 2 L baseline O2. Upon arrival patient cannot answer any of my questions. He often hollers out Pat which is the name of his . PMH is significant for CAD s/p CABG, CHF, HTN, DVT on Eliquis, PVD, COPD, GERD, CVA, chronic back pain treated with opiate pain medication, arthritis, decubitus ulcer. complaint: altered mental status Onset (ago): day(s) Timing confirmed by: spouse Severity: severe Consistency of symptoms: Getting Worse Associated symptoms: Reports no associated symptoms Treatments prior to arrival: IV fluid (700-900cc) Review of Systems General: Reports: ROS unobtainable due to mental status [facility] ED PFSH: Medical History Atherosclerotic heart disease of [place] coronary artery without angina pectoris Benign essential hypertension with target blood pressure below 140/90 CAD (coronary artery disease) Chronic constipation Chronic prescription opiate use COPD (chronic obstructive pulmonary disease) with chronic bronchitis Diastolic heart failure DVT (deep venous thrombosis) Dyslipidemia Generalized anxiety disorder 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 History of DVT (deep vein thrombosis) Hx of cervical spinal arthrodesis Hypertension Intervertebral disc disorder with radiculopathy of lumbosacral region Lower abdominal pain Lumbar disc disease Lumbar spondylosis Lumbar stenosis with neurogenic claudication Major depressive disorder, recurrent severe without psychotic features Peripheral vascular disease Scoliosis of lumbar spine Skin tear Sleep apnea, unspecified Unspecified dementia without behavioral disturbance Surgical History History of cervical spinal surgery 1979 [facility] C6-C7 laminectomy/fusion/fixation History of heart artery stent (~2006) History of heart bypass surgery (~2007) History of hernia surgery 4x History of knee surgery Right History of lumbar surgery [facility]. L3-L4, L4-L5, L5-S1 decompression History of uvulopalatopharyngoplasty Hx of CABG Hx of cholecystectomy Family History Father Diabetes Mother Colon cancer Hypertension Social History Smoking and tobacco status: former smoker Alcohol intake: never Household members: significant other Marital status: Current occupational status: disabled History of recent travel: No Physical Exam Const: COMMON NORMALS: no acute distress and alert GENERAL APPEARANCE: disheveled ORIENTATION/CONSCIOUSNESS: Yes awake and Yes confused HENMT: COMMON NORMALS: normocephalic and atraumatic HEAD & SCALP: normocephalic and atraumatic Resp: COMMON NORMALS: normal respiratory effort and clear to auscultation bilaterally AUSCULTATION: clear to auscultation bilaterally Cardio: COMMON NORMALS: regular rate and regular rhythm RATE: regular rate RHYTHM: regular rhythm GI: COMMON NORMALS: Normal to inspection, nondistended, normoactive bowel sounds present, Soft to palpation, non-tender, No hepatosplenomegaly present and no masses PALPATION: Yes Soft to palpation and Yes No hepatosplenomegaly present : PENIS: normal penis MEATUS: meatus normal SCROTUM: Yes testes descended bilaterally Extremity: COMMON NORMALS: normal to inspection; negative for no pedal edema Neuro: SENSORIUM/ORIENTATION: Yes alert and Yes Orientation impaired GAIT: Yes Unable to assess gait Skin: COMMON NORMALS: no rashes or lesions noted GENERAL SKIN EXAM: no rashes or lesions noted Course Vital Signs: Vital signs: Vital Signs Temperature 98.7 F 03/09/20 19:36 Pulse Rate 70 03/09/20 21:04 Respiratory Rate 14 03/09/20 21:04 Blood Pressure 116/85 03/09/20 21:04 Pulse Oximetry 100 03/09/20 21:04 MDM - Altered Mental Status MDM Narrative: Medical decision making narrative: I do not see any infectious cause for patient's increased altered mental status. He is found to be in acute renal failure. He has an elevated troponin at 46 with EKG changes. BNP is slightly over 2000 which is almost 4x higher than he was last month. I have spoken to Dr. Canela who will also evaluate patient and speak to the hospitalist for admission. Lab Data: Labs: Lab Results 03/09/20 03/09/20 03/09/20 Range/Units 17:45 17:45 17:50 WBC Corrected WBC RBC Hgb Hct MCV MCH MCHC RDW Plt Count MPV Gran % Neut % (Auto) Lymph % (Auto) [place] % (Auto) Eos % (Auto) Baso % (Auto) Neut # (Auto) Lymph # (Auto) [place] # (Auto) Eos # (Auto) Baso # (Auto) Absolute Gran (aut o) Nucleated RBC % (a uto) Nucleated RBCs # PT (12.1-14.9) SECO NDS INR (0.8-1.2) APTT (23.9-36.7) SECO NDS Sodium (136-145) mmol/L Potassium (3.5-5.1) mmol/L Chloride (98-107) mmol/L Carbon Dioxide (22-29) mmol/L Anion Gap (5-19) BUN (8-23) mg/dL Creatinine (0.7-1.2) mg/dL GFR Calculation Glucose (65-115) mg/dL Calculated Osmolal ity (285-295) mOsm/k g Lactic Acid 1.9 (0.5-2.2) mmol/L Calcium (8.5-10.5) mg/dL Total Bilirubin (0.15-1.2) mg/dL AST (0-40) U/L ALT (0-41) U/L Alkaline Phosphata se (40-130) IU/L Creatine Kinase (39-308) U/L Troponin T Baselin e (0-15) ng/L NT-Pro-B Natriuret Pep (0-450) pg/mL Total Protein (6.6-8.7) g/dL Albumin (3.5-5.2) g/dL Globulin (1.3-4.6) g/dL Urine Color Yellow (Yellow) Urine Appearance Clear (CLEAR) Urine pH 5 (5-7) Ur Specific Gravit y 1.015 (1.005-1.030) Urine Protein Neg (Negative) Urine Glucose (UA) Norm (Normal) Urine Ketones Negative (Negative) Urine Blood Neg (Negative) Urine Nitrate Negative (Negative) Urine Bilirubin Neg (NEGATIVE) Urine Urobilinogen Norm (Negative) mg/dL Ur Leukocyte Kamini ase Negative (Negative) Urine Opiates Scre en Positive H (Negative) ng/mL Ur Barbiturates Sc reen Negative (Negative) ng/mL Ur Phencyclidine S crn Negative (Negative) ng/mL Ur Amphetamines Sc reen Negative (Negative) ng/mL U Benzodiazepines Scrn Negative (Negative) ng/mL Urine Cocaine Scre en Negative (Negative) ng/mL U Marijuana (THC) Screen Negative (Negative) ng/mL 03/09/20 03/09/20 03/09/20 Range/Units 17:55 17:55 17:55 WBC Cancelled Corrected WBC Cancelled RBC Cancelled Hgb Cancelled Hct Cancelled MCV Cancelled MCH Cancelled MCHC Cancelled RDW Cancelled Plt Count Cancelled MPV Cancelled Gran % Cancelled Neut % (Auto) Cancelled Lymph % (Auto) Cancelled [place] % (Auto) Cancelled Eos % (Auto) Cancelled Baso % (Auto) Cancelled Neut # (Auto) Cancelled Lymph # (Auto) Cancelled [place] # (Auto) Cancelled Eos # (Auto) Cancelled Baso # (Auto) Cancelled Absolute Gran (aut o) Cancelled Nucleated RBC % (a uto) Cancelled Nucleated RBCs # Cancelled PT 16.80 H (12.1-14.9) SECO NDS INR 1.32 H (0.8-1.2) APTT 20.0 L (23.9-36.7) SECO NDS Sodium 144 (136-145) mmol/L Potassium 4.3 (3.5-5.1) mmol/L Chloride 100 (98-107) mmol/L Carbon Dioxide 22 (22-29) mmol/L Anion Gap 26.3 H (5-19) BUN 66 H (8-23) mg/dL Creatinine 2.9 H (0.7-1.2) mg/dL GFR Calculation Not Reportable Glucose 120 H (65-115) mg/dL Calculated Osmolal ity 298 H (285-295) mOsm/k g Lactic Acid (0.5-2.2) mmol/L Calcium 9.7 (8.5-10.5) mg/dL Total Bilirubin 0.5 (0.15-1.2) mg/dL AST 19 (0-40) U/L ALT 11 (0-41) U/L Alkaline Phosphata se 89 (40-130) IU/L Creatine Kinase (39-308) U/L Troponin T Baselin e (0-15) ng/L NT-Pro-B Natriuret Pep 2097 H (0-450) pg/mL Total Protein 7.7 (6.6-8.7) g/dL Albumin 3.9 (3.5-5.2) g/dL Globulin 3.8 (1.3-4.6) g/dL Urine Color (Yellow) Urine Appearance (CLEAR) Urine pH (5-7) Ur Specific Gravit y (1.005-1.030) Urine Protein (Negative) Urine Glucose (UA) (Normal) Urine Ketones (Negative) Urine Blood (Negative) Urine Nitrate (Negative) Urine Bilirubin (NEGATIVE) Urine Urobilinogen (Negative) mg/dL Ur Leukocyte Kamini ase (Negative) Urine Opiates Scre en (Negative) ng/mL Ur Barbiturates Sc reen (Negative) ng/mL Ur Phencyclidine S crn (Negative) ng/mL Ur Amphetamines Sc reen (Negative) ng/mL U Benzodiazepines Scrn (Negative) ng/mL Urine Cocaine Scre en (Negative) ng/mL U Marijuana (THC) Screen (Negative) ng/mL 03/09/20 03/09/20 03/09/20 Range/Units 17:55 17:55 18:30 WBC Cancelled Corrected WBC Cancelled RBC Cancelled Hgb Cancelled Hct Cancelled MCV Cancelled MCH Cancelled MCHC Cancelled RDW Cancelled Plt Count Cancelled MPV Cancelled Gran % Cancelled Neut % (Auto) Cancelled Lymph % (Auto) Cancelled [place] % (Auto) Cancelled Eos % (Auto) Cancelled Baso % (Auto) Cancelled Neut # (Auto) Cancelled Lymph # (Auto) Cancelled [place] # (Auto) Cancelled Eos # (Auto) Cancelled Baso # (Auto) Cancelled Absolute Gran (aut o) Cancelled Nucleated RBC % (a uto) Cancelled Nucleated RBCs # Cancelled PT (12.1-14.9) SECO NDS INR (0.8-1.2) APTT (23.9-36.7) SECO NDS Sodium (136-145) mmol/L Potassium (3.5-5.1) mmol/L Chloride (98-107) mmol/L Carbon Dioxide (22-29) mmol/L Anion Gap (5-19) BUN (8-23) mg/dL Creatinine (0.7-1.2) mg/dL GFR Calculation Glucose (65-115) mg/dL Calculated Osmolal ity (285-295) mOsm/k g Lactic Acid (0.5-2.2) mmol/L Calcium (8.5-10.5) mg/dL Total Bilirubin (0.15-1.2) mg/dL AST (0-40) U/L ALT (0-41) U/L Alkaline Phosphata se (40-130) IU/L Creatine Kinase 107 (39-308) U/L Troponin T Baselin e 46 H (0-15) ng/L NT-Pro-B Natriuret Pep (0-450) pg/mL Total Protein (6.6-8.7) g/dL Albumin (3.5-5.2) g/dL Globulin (1.3-4.6) g/dL Urine Color (Yellow) Urine Appearance (CLEAR) Urine pH (5-7) Ur Specific Gravit y (1.005-1.030) Urine Protein (Negative) Urine Glucose (UA) (Normal) Urine Ketones (Negative) Urine Blood (Negative) Urine Nitrate (Negative) Urine Bilirubin (NEGATIVE) Urine Urobilinogen (Negative) mg/dL Ur Leukocyte Kamini ase (Negative) Urine Opiates Scre en (Negative) ng/mL Ur Barbiturates Sc reen (Negative) ng/mL Ur Phencyclidine S crn (Negative) ng/mL Ur Amphetamines Sc reen (Negative) ng/mL U Benzodiazepines Scrn (Negative) ng/mL Urine Cocaine Scre en (Negative) ng/mL U Marijuana (THC) Screen (Negative) ng/mL 03/09/20 Range/Units 18:50 WBC 12.0 H Corrected WBC RBC 4.39 Hgb 11.9 Hct 38.0 L MCV 86.6 MCH 27.1 L MCHC 31.3 RDW 14.6 Plt Count 264 MPV 10.6 H Gran % Neut % (Auto) 80.7 Lymph % (Auto) 10.6 [place] % (Auto) 7.9 Eos % (Auto) 0.1 Baso % (Auto) 0.5 Neut # (Auto) 9.71 H Lymph # (Auto) 1.3 [place] # (Auto) 1.0 H Eos # (Auto) 0.0 Baso # (Auto) 0.1 Absolute Gran (aut o) Nucleated RBC % (a uto) 0 Nucleated RBCs # 0.0 PT (12.1-14.9) SECO NDS INR (0.8-1.2) APTT (23.9-36.7) SECO NDS Sodium (136-145) mmol/L Potassium (3.5-5.1) mmol/L Chloride (98-107) mmol/L Carbon Dioxide (22-29) mmol/L Anion Gap (5-19) BUN (8-23) mg/dL Creatinine (0.7-1.2) mg/dL GFR Calculation Glucose (65-115) mg/dL Calculated Osmolal ity (285-295) mOsm/k g Lactic Acid (0.5-2.2) mmol/L Calcium (8.5-10.5) mg/dL Total Bilirubin (0.15-1.2) mg/dL AST (0-40) U/L ALT (0-41) U/L Alkaline Phosphata se (40-130) IU/L Creatine Kinase (39-308) U/L Troponin T Baselin e (0-15) ng/L NT-Pro-B Natriuret Pep (0-450) pg/mL Total Protein (6.6-8.7) g/dL Albumin (3.5-5.2) g/dL Globulin (1.3-4.6) g/dL Urine Color (Yellow) Urine Appearance (CLEAR) Urine pH (5-7) Ur Specific Gravit y (1.005-1.030) Urine Protein (Negative) Urine Glucose (UA) (Normal) Urine Ketones (Negative) Urine Blood (Negative) Urine Nitrate (Negative) Urine Bilirubin (NEGATIVE) Urine Urobilinogen (Negative) mg/dL Ur Leukocyte Kamini ase (Negative) Urine Opiates Scre en (Negative) ng/mL Ur Barbiturates Sc reen (Negative) ng/mL Ur Phencyclidine S crn (Negative) ng/mL Ur Amphetamines Sc reen (Negative) ng/mL U Benzodiazepines Scrn (Negative) ng/mL Urine Cocaine Scre en (Negative) ng/mL U Marijuana (THC) Screen (Negative) ng/mL Imaging Data^: CT Head: Radiologist's impression: [address] [address] [address] Scan Report Signed Patient: Anurag Rios Unit #: [id number] : 1940 Age/Sex: 80 / M ADM Date: 03/09/20 Loc: ER Room/Bed: Attending Dr: Ordering Provider/Ordering MD: Yanni Sanchez Date of Service: 03/09/20 Procedure(s): CT head wo con* [id number] Accession Number(s): [id number] Report Number: [id number] PROCEDURE INFORMATION: Exam: CT Head Without Contrast Exam date and time: 03/09/2020 5:32 PM Age: 80 years old Clinical indication: Altered mental status/memory loss; Patient HX: Best images. PT does not stop talking or moving; Additional info: AMS TECHNIQUE: Imaging protocol: Computed tomography of the head without contrast. Radiation optimization: All CT scans at this facility use at least one of these dose optimization techniques: automated exposure control; mA and/or kV adjustment per patient size (includes targeted exams where dose is matched to clinical indication); or iterative reconstruction. COMPARISON: CT head wo con* [id number] 06/16/2019 9:35 PM RADIATION DOSE METRICS: Total DLP (mGy-cm): 1332.77 FINDINGS: Brain: Cerebral arteriosclerosis. No definite evidence of acute intracranial pathologic process, trauma, or hemorrhage. Evidence of moderately advanced small vessel ischemic disease with senile periventricular leukomalacia. No visible mass effect. No generalized edema. No midline shift. Cerebral and cerebellar atrophy with ventricular dilatation slightly greater than that anticipated for patient's chronological age. Ventricles: No ventriculomegaly. Bones/joints: Unremarkable. No acute fracture. Sinuses: Visualized sinuses are unremarkable. No fluid levels. Mastoid air cells: Visualized mastoid air cells are well aerated. Soft tissues: Unremarkable. Other findings: Motion artifact. CT/CT head wo con* [id number] IMPRESSION: No definite evidence of acute intracranial pathologic process, trauma, or hemorrhage. Radiation Dose CTDIVOL = (mGy): DLP = 1332.77 (mGy-cm) Dictated By: Frankie Shelley Signed By: Frankie Shelley Signed Date/Time: 03/09/201824 DD/ 23 Discharge Plan Discharge Patient Disposition: Admitted As Inpatient Admit Provider: Gregory Ayers Clinical Impression: Chronic prescription opiate use, Elevated troponin, Altered mental status Acute renal failure Qualifiers: Acute renal failure type: unspecified Qualified Code(s): N17.9 - Acute kidney failure, unspecified Acute on chronic congestive heart failure Qualifiers: Heart failure type: diastolic Qualified Code(s): I50.33 - Acute on chronic diastolic (congestive) heart failure Condition: Stable Referrals: Brisa Jensen FNP-C [Primary Care Provider] - Discharge Date/Time: 03/09/20 21:35 Coding Level of Care Code ED 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 Fwd Exam Comprehensive Documented by User: Maria Canela 03/09/20 21:37 HPI - Altered Mental Status General: Chief Complaint: Altered Mental Status Stated Complaint: UTI Time Seen by Provider: 03/09/20 17:09 PFSH ED PFSH: Medical History Atherosclerotic heart disease of [place] coronary artery without angina pectoris Benign essential hypertension with target blood pressure below 140/90 CAD (coronary artery disease) Chronic constipation Chronic prescription opiate use COPD (chronic obstructive pulmonary disease) with chronic bronchitis Diastolic heart failure DVT (deep venous thrombosis) Dyslipidemia Generalized anxiety disorder 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 History of DVT (deep vein thrombosis) Hx of cervical spinal arthrodesis Hypertension Intervertebral disc disorder with radiculopathy of lumbosacral region Lower abdominal pain Lumbar disc disease Lumbar spondylosis Lumbar stenosis with neurogenic claudication Major depressive disorder, recurrent severe without psychotic features Peripheral vascular disease Scoliosis of lumbar spine Skin tear Sleep apnea, unspecified Unspecified dementia without behavioral disturbance Surgical History History of cervical spinal surgery 1979 [facility] C6-C7 laminectomy/fusion/fixation History of heart artery stent (~2006) History of heart bypass surgery (~2007) History of hernia surgery 4x History of knee surgery Right History of lumbar surgery [facility]. L3-L4, L4-L5, L5-S1 decompression History of uvulopalatopharyngoplasty Hx of CABG Hx of cholecystectomy Family History Father Diabetes Mother Colon cancer Hypertension Social History Smoking and tobacco status: former smoker Alcohol intake: never Household members: significant other Marital status: Current occupational status: disabled History of recent travel: No Course Vital Signs: Vital signs: Vital Signs Temperature 98.7 F 03/09/20 19:36 Pulse Rate 70 03/09/20 21:04 Respiratory Rate 14 03/09/20 21:04 Blood Pressure 116/85 03/09/20 21:04 Pulse Oximetry 100 03/09/20 21:04 MDM - Altered Mental Status MDM Narrative: Medical decision making narrative: Patient care inherited by me at change of shift from SCOTT Renteria. Please see her notes for history, physical exam medical decision-making notes. Patient is altered mental status believe to be partly due to dementia but likely made worse secondary to renal failure. There is no sign of acute infectious etiology. Patient does have elevated cardiac enzymes and abnormal EKG. The case was reviewed with Dr. Ayers he agrees to come down evaluate the patient in the ER Lab Data: Labs: Lab Results 03/09/20 03/09/20 03/09/20 Range/Units 17:45 17:45 17:50 WBC Corrected WBC RBC Hgb Hct MCV MCH MCHC RDW Plt Count MPV Gran % Neut % (Auto) Lymph % (Auto) [place] % (Auto) Eos % (Auto) Baso % (Auto) Neut # (Auto) Lymph # (Auto) [place] # (Auto) Eos # (Auto) Baso # (Auto) Absolute Gran (aut o) Nucleated RBC % (a uto) Nucleated RBCs # PT (12.1-14.9) SECO NDS INR (0.8-1.2) APTT (23.9-36.7) SECO NDS Sodium (136-145) mmol/L Potassium (3.5-5.1) mmol/L Chloride (98-107) mmol/L Carbon Dioxide (22-29) mmol/L Anion Gap (5-19) BUN (8-23) mg/dL Creatinine (0.7-1.2) mg/dL GFR Calculation Glucose (65-115) mg/dL Calculated Osmolal ity (285-295) mOsm/k g Lactic Acid 1.9 (0.5-2.2) mmol/L Calcium (8.5-10.5) mg/dL Total Bilirubin (0.15-1.2) mg/dL AST (0-40) U/L ALT (0-41) U/L Alkaline Phosphata se (40-130) IU/L Creatine Kinase (39-308) U/L Troponin T Baselin e (0-15) ng/L NT-Pro-B Natriuret Pep (0-450) pg/mL Total Protein (6.6-8.7) g/dL Albumin (3.5-5.2) g/dL Globulin (1.3-4.6) g/dL Urine Color Yellow (Yellow) Urine Appearance Clear (CLEAR) Urine pH 5 (5-7) Ur Specific Gravit y 1.015 (1.005-1.030) Urine Protein Neg (Negative) Urine Glucose (UA) Norm (Normal) Urine Ketones Negative (Negative) Urine Blood Neg (Negative) Urine Nitrate Negative (Negative) Urine Bilirubin Neg (NEGATIVE) Urine Urobilinogen Norm (Negative) mg/dL Ur Leukocyte Kamini ase Negative (Negative) Urine Opiates Scre en Positive H (Negative) ng/mL Ur Barbiturates Sc reen Negative (Negative) ng/mL Ur Phencyclidine S crn Negative (Negative) ng/mL Ur Amphetamines Sc reen Negative (Negative) ng/mL U Benzodiazepines Scrn Negative (Negative) ng/mL Urine Cocaine Scre en Negative (Negative) ng/mL U Marijuana (THC) Screen Negative (Negative) ng/mL 03/09/20 03/09/20 03/09/20 Range/Units 17:55 17:55 17:55 WBC Cancelled Corrected WBC Cancelled RBC Cancelled Hgb Cancelled Hct Cancelled MCV Cancelled MCH Cancelled MCHC Cancelled RDW Cancelled Plt Count Cancelled MPV Cancelled Gran % Cancelled Neut % (Auto) Cancelled Lymph % (Auto) Cancelled [place] % (Auto) Cancelled Eos % (Auto) Cancelled Baso % (Auto) Cancelled Neut # (Auto) Cancelled Lymph # (Auto) Cancelled [place] # (Auto) Cancelled Eos # (Auto) Cancelled Baso # (Auto) Cancelled Absolute Gran (aut o) Cancelled Nucleated RBC % (a uto) Cancelled Nucleated RBCs # Cancelled PT 16.80 H (12.1-14.9) SECO NDS INR 1.32 H (0.8-1.2) APTT 20.0 L (23.9-36.7) SECO NDS Sodium 144 (136-145) mmol/L Potassium 4.3 (3.5-5.1) mmol/L Chloride 100 (98-107) mmol/L Carbon Dioxide 22 (22-29) mmol/L Anion Gap 26.3 H (5-19) BUN 66 H (8-23) mg/dL Creatinine 2.9 H (0.7-1.2) mg/dL GFR Calculation Not Reportable Glucose 120 H (65-115) mg/dL Calculated Osmolal ity 298 H (285-295) mOsm/k g Lactic Acid (0.5-2.2) mmol/L Calcium 9.7 (8.5-10.5) mg/dL Total Bilirubin 0.5 (0.15-1.2) mg/dL AST 19 (0-40) U/L ALT 11 (0-41) U/L Alkaline Phosphata se 89 (40-130) IU/L Creatine Kinase (39-308) U/L Troponin T Baselin e (0-15) ng/L NT-Pro-B Natriuret Pep 2097 H (0-450) pg/mL Total Protein 7.7 (6.6-8.7) g/dL Albumin 3.9 (3.5-5.2) g/dL Globulin 3.8 (1.3-4.6) g/dL Urine Color (Yellow) Urine Appearance (CLEAR) Urine pH (5-7) Ur Specific Gravit y (1.005-1.030) Urine Protein (Negative) Urine Glucose (UA) (Normal) Urine Ketones (Negative) Urine Blood (Negative) Urine Nitrate (Negative) Urine Bilirubin (NEGATIVE) Urine Urobilinogen (Negative) mg/dL Ur Leukocyte Kamini ase (Negative) Urine Opiates Scre en (Negative) ng/mL Ur Barbiturates Sc reen (Negative) ng/mL Ur Phencyclidine S crn (Negative) ng/mL Ur Amphetamines Sc reen (Negative) ng/mL U Benzodiazepines Scrn (Negative) ng/mL Urine Cocaine Scre en (Negative) ng/mL U Marijuana (THC) Screen (Negative) ng/mL 03/09/20 03/09/20 03/09/20 Range/Units 17:55 17:55 18:30 WBC Cancelled Corrected WBC Cancelled RBC Cancelled Hgb Cancelled Hct Cancelled MCV Cancelled MCH Cancelled MCHC Cancelled RDW Cancelled Plt Count Cancelled MPV Cancelled Gran % Cancelled Neut % (Auto) Cancelled Lymph % (Auto) Cancelled [place] % (Auto) Cancelled Eos % (Auto) Cancelled Baso % (Auto) Cancelled Neut # (Auto) Cancelled Lymph # (Auto) Cancelled [place] # (Auto) Cancelled Eos # (Auto) Cancelled Baso # (Auto) Cancelled Absolute Gran (aut o) Cancelled Nucleated RBC % (a uto) Cancelled Nucleated RBCs # Cancelled PT (12.1-14.9) SECO NDS INR (0.8-1.2) APTT (23.9-36.7) SECO NDS Sodium (136-145) mmol/L Potassium (3.5-5.1) mmol/L Chloride (98-107) mmol/L Carbon Dioxide (22-29) mmol/L Anion Gap (5-19) BUN (8-23) mg/dL Creatinine (0.7-1.2) mg/dL GFR Calculation Glucose (65-115) mg/dL Calculated Osmolal ity (285-295) mOsm/k g Lactic Acid (0.5-2.2) mmol/L Calcium (8.5-10.5) mg/dL Total Bilirubin (0.15-1.2) mg/dL AST (0-40) U/L ALT (0-41) U/L Alkaline Phosphata se (40-130) IU/L Creatine Kinase 107 (39-308) U/L Troponin T Baselin e 46 H (0-15) ng/L NT-Pro-B Natriuret Pep (0-450) pg/mL Total Protein (6.6-8.7) g/dL Albumin (3.5-5.2) g/dL Globulin (1.3-4.6) g/dL Urine Color (Yellow) Urine Appearance (CLEAR) Urine pH (5-7) Ur Specific Gravit y (1.005-1.030) Urine Protein (Negative) Urine Glucose (UA) (Normal) Urine Ketones (Negative) Urine Blood (Negative) Urine Nitrate (Negative) Urine Bilirubin (NEGATIVE) Urine Urobilinogen (Negative) mg/dL Ur Leukocyte Kamini ase (Negative) Urine Opiates Scre en (Negative) ng/mL Ur Barbiturates Sc reen (Negative) ng/mL Ur Phencyclidine S crn (Negative) ng/mL Ur Amphetamines Sc reen (Negative) ng/mL U Benzodiazepines Scrn (Negative) ng/mL Urine Cocaine Scre en (Negative) ng/mL U Marijuana (THC) Screen (Negative) ng/mL 03/09/20 Range/Units 18:50 WBC 12.0 H Corrected WBC RBC 4.39 Hgb 11.9 Hct 38.0 L MCV 86.6 MCH 27.1 L MCHC 31.3 RDW 14.6 Plt Count 264 MPV 10.6 H Gran % Neut % (Auto) 80.7 Lymph % (Auto) 10.6 [place] % (Auto) 7.9 Eos % (Auto) 0.1 Baso % (Auto) 0.5 Neut # (Auto) 9.71 H Lymph # (Auto) 1.3 [place] # (Auto) 1.0 H Eos # (Auto) 0.0 Baso # (Auto) 0.1 Absolute Gran (aut o) Nucleated RBC % (a uto) 0 Nucleated RBCs # 0.0 PT (12.1-14.9) SECO NDS INR (0.8-1.2) APTT (23.9-36.7) SECO NDS Sodium (136-145) mmol/L Potassium (3.5-5.1) mmol/L Chloride (98-107) mmol/L Carbon Dioxide (22-29) mmol/L Anion Gap (5-19) BUN (8-23) mg/dL Creatinine (0.7-1.2) mg/dL GFR Calculation Glucose (65-115) mg/dL Calculated Osmolal ity (285-295) mOsm/k g Lactic Acid (0.5-2.2) mmol/L Calcium (8.5-10.5) mg/dL Total Bilirubin (0.15-1.2) mg/dL AST (0-40) U/L ALT (0-41) U/L Alkaline Phosphata se (40-130) IU/L Creatine Kinase (39-308) U/L Troponin T Baselin e (0-15) ng/L NT-Pro-B Natriuret Pep (0-450) pg/mL Total Protein (6.6-8.7) g/dL Albumin (3.5-5.2) g/dL Globulin (1.3-4.6) g/dL Urine Color (Yellow) Urine Appearance (CLEAR) Urine pH (5-7) Ur Specific Gravit y (1.005-1.030) Urine Protein (Negative) Urine Glucose (UA) (Normal) Urine Ketones (Negative) Urine Blood (Negative) Urine Nitrate (Negative) Urine Bilirubin (NEGATIVE) Urine Urobilinogen (Negative) mg/dL Ur Leukocyte Kamini ase (Negative) Urine Opiates Scre en (Negative) ng/mL Ur Barbiturates Sc reen (Negative) ng/mL Ur Phencyclidine S crn (Negative) ng/mL Ur Amphetamines Sc reen (Negative) ng/mL U Benzodiazepines Scrn (Negative) ng/mL Urine Cocaine Scre en (Negative) ng/mL U Marijuana (THC) Screen (Negative) ng/mL Imaging Data^: CXR: Attestation: I personally reviewed and interpreted this imaging study as follows: My impression: No acute cardiopulmonary findings. EKG Data^: EKG 1: Attestation: I personally reviewed and interpreted this EKG as follows: EKG interpretation date: 03/09/20 EKG interpretation time: 18:13 Interpretation: Normal sinus rhythm at 61 beats a minute, T wave inversions and ST depressions present in V2 through V4. New from previous. Discharge Plan Discharge Patient Disposition: Admitted As Inpatient Admit Provider: Gregory Ayers Clinical Impression: Chronic prescription opiate use, Elevated troponin, Altered mental status Acute renal failure Qualifiers: Acute renal failure type: unspecified Qualified Code(s): N17.9 - Acute kidney failure, unspecified Acute on chronic congestive heart failure Qualifiers: Heart failure type: diastolic Qualified Code(s): I50.33 - Acute on chronic diastolic (congestive) heart failure Condition: Stable Referrals: Brisa Jensen FNP-C [Primary Care Provider] - Discharge Date/Time: 03/09/20 21:35 Coding Level of Care Code ED 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 Chg Fwd Exam Comprehensive
--- NOTE | 2020-03-09 17:45 | ECG_ITS ---
[facility] Test Date: 2020-03-09 Pat Name: Anurag Rios Department: Room: Gender: Male Case Coordinator: : 1940 Requested By: Yanni Sanchez Order Number: [id number] Tuan MD: Velvet Park M.D. Measurements Intervals [place] Rate: 61 P: 54 [place]: 213 QRS: 44 QRSD: 119 T: 12 QT: 493 QTc: 499 Interpretive Statements SINUS RHYTHM WITH SINUS ARRHYTHMIA WITH FIRST DEGREE AV BLOCK MODERATE INTRAVENTRICULAR CONDUCTION DELAY [110+ ms QRS DURATION] ST DEVIATION AND MODERATE T-WAVE ABNORMALITY, CONSIDER ANTERIOR ISCHEMIA [-0.1+ mV T WAVE IN V3/V4] Compared to ECG 01/27/2020 21:56:43 First degree AV block now present Intraventricular conduction delay now present T-wave abnormality now present Possible ischemia now present Incomplete right bundle-branch block no longer present Prolonged QT interval no longer present Electronically Signed On 03-09-2020 23:45:25 CDT by Velvet Park M.D. [id number] f
[2020-03-09 18:09] LABS: Add Urine Microscopic? NO
[2020-03-09 18:18] LABS: Bilirubin Urine Neg (NEGATIVE); Blood Urine Neg (Negative); Glucose Urine UA Norm (Normal); Ketones Urine Negative (Negative); Leukocyte Esterase Urine Negative (Negative); Nitrate Urine Negative (Negative); Protein Urine Neg (Negative); Specific Gravity, Urine 1.015 (1.005-1.030); Urine Appearance Clear (CLEAR); Urine Color Yellow (Yellow); Urobilinogen Urine Norm (Negative); pH Urine 5 (5-7)
[2020-03-09 18:20] LABS: INR 1.32 (0.8-1.2)
[2020-03-09 18:25] LABS: Lactic Sepsis W/Reflex 1.9 mmol/L (0.5-2.2)
[2020-03-09 18:27] LABS: Amphetamines Screen Urine Negative (Negative); Barbiturates Screen Urine Negative (Negative); Benzodiazepines Screen Urine Negative (Negative); Cocaine Screen Urine Negative (Negative); Opiate Screen Urine Positive (Negative); PCP Screen Urine Negative (Negative); THC Screen Urine Negative (Negative)
[2020-03-09 18:31] LABS: Troponin(5th) Baseline 46 ng/L (0-15)
[2020-03-09 18:35] LABS: Alanine Aminotransferase 11 U/L (0-41); Albumin Level 3.9 g/dL (3.5-5.2); Alkaline Phosphatase 89 IU/L (40-130); Blood Urea Nitrogen 66 mg/dL (8-23); Calcium 9.7 mg/dL (8.5-10.5); Carbon Dioxide 22 mmol/L (22-29); Chloride 100 mmol/L (98-107); Globulin 3.8 g/dL (1.3-4.6); Glucose 120 mg/dL (65-115); NT Pro B Type Natriuretic Pept 2097 pg/mL (0-450); Osmolality Calculated 298 mOsm/kg (285-295); Sodium 144 mmol/L (136-145); Total Bilirubin 0.5 mg/dL (0.15-1.2); Total Protein 7.7 g/dL (6.6-8.7)
[2020-03-09 18:42] LABS: Anion Gap 26.3 (5-19); Aspartate Amino Transferase 19 U/L (0-40); Potassium 4.3 mmol/L (3.5-5.1)
[2020-03-09 18:54] LABS: Basophils # 0.1 10^3/uL (0.0-0.1); Basophils % 0.5 %; Eosinophils % 0.1 %; Hemoglobin 11.9 g/dL (11.7-16.6); Lymphocytes # 1.3 10^3/uL (0.8-4.8); Lymphocytes % 10.6 %; Mean Corpuscular HGB Conc 31.3 g/dL (30.0-36.0); Mean Corpuscular Hemoglobin 27.1 pg (28.0-34.0); Mean Corpuscular Volume 86.6 fL (80-94); Mean Platelet Volume 10.6 fL (7.4-10.4); Monocytes % 7.9 %; Neutrophils # 9.71 10^3/uL (1.8-7.7); Neutrophils % 80.7 %; Nucleated Red Blood Cells % 0 %; Platelet Count 264 10^3/cmm (130-400); Red Blood Count 4.39 10^6/uL (4.1-5.3); Red Cell Distribution Width 14.6 % (12.1-15.1)
--- NOTE | 2020-03-09 19:35 | PM.HP ---
Providers/Chief Complaint Primary Care Provider: CHINMAY ObandoC Chief Complaint: UTI History of Present Illness Anurag Rios is a 80 year old male who presents with worsening confusion. He has underlying dementia, but since Monday he woke up more confused. He has not been drinking much. He has been eating hardly any. He has been yelling out. His temperature was 100.3 yesterday so caregiver gave him some aspirin today. He has had a slight cough but no runny nose. There is been no vomiting. He has had no obvious chest discomfort. Caregiver reports he normally can carry on a conversation although is confused. He has not been walking secondary to weakness for at least the last 2 months. His most recent admission was in September secondary to concerns of bacteremia which was possibly contaminant but he was treated with 2 weeks of IV antibiotics. There is been no history of COVID or COVID exposure. Caregiver reports she controls all of his medications and he could not have taken any extra on his own. Review of Systems General: Reports: ROS unobtainable due to mental status (Unable to obtain from patient secondary to mental status.) Medications/Allergies Home Medications Medication Instructions Recorded Confirmed Last Taken Type apixaban 5 mg tablet 5 mg PO BID 08/05/19 03/09/20 Unknown History baclofen 20 mg tablet 20 mg PO TID PRN 08/05/19 03/09/20 03/08/20 History oxycodone 30 mg tablet See Rx Instructions .ROUTE 08/05/19 03/09/20 03/09/20 History .COMPLEX tab multivitamin [Multiple Vitamins] 1 tab PO DAILY 09/25/19 03/09/20 Unknown History furosemide [Lasix] 40 mg PO BID PRN #0 tab 09/30/19 03/09/20 03/09/20 Rx polyethylene glycol 3350 [Miralax] 17 g PO BID #60 ea 09/30/19 03/09/20 Unknown Rx lisinopril 20 mg tablet 20 mg PO DAILY #90 tab 10/22/19 03/09/20 03/08/20 Rx albuterol sulfate 90 mcg/actuation 2 puff INHALATION QID PRN #8.5 gm 10/26/19 03/09/20 03/06/20 Rx aerosol inhaler carvedilol 12.5 mg tablet 12.5 mg PO BID #60 tab 11/14/19 03/09/20 03/08/20 Rx quetiapine 100 mg tablet 100 mg PO BEDTIME #30 tab 12/09/19 03/09/20 03/07/20 Rx sertraline 100 mg tablet 200 mg PO DAILY #60 tab 12/09/19 03/09/20 Unknown Rx trazodone 100 mg tablet 300 mg PO BEDTIME PRN #90 tab 12/09/19 03/09/20 03/08/20 Rx ostomy supplies #60 gm 12/10/19 03/09/20 Unknown Rx lubiprostone 24 mcg capsule 24 mcg PO BID 30 Days #60 cap 01/13/20 03/09/20 Unknown Rx amlodipine 10 mg tablet 10 mg PO DAILY #90 tab 01/20/20 03/09/20 03/08/20 Rx nitroglycerin 0.4 mg sublingual 0.4 mg SUBLINGUAL Q5M PRN #100 tab 01/20/20 03/09/20 03/07/20 Rx tablet Allergies Allergy/AdvReac Type Severity Reaction Status Date / Time hydromorphone Allergy Mild hives Verified 03/09/20 19:03 PFSH Acute PFSH: Medical History Atherosclerotic heart disease of [place] coronary artery without angina pectoris Benign essential hypertension with target blood pressure below 140/90 CAD (coronary artery disease) Chronic constipation Chronic prescription opiate use COPD (chronic obstructive pulmonary disease) with chronic bronchitis Diastolic heart failure DVT (deep venous thrombosis) Dyslipidemia Generalized anxiety disorder 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 History of DVT (deep vein thrombosis) Hx of cervical spinal arthrodesis Hypertension Intervertebral disc disorder with radiculopathy of lumbosacral region Lower abdominal pain Lumbar disc disease Lumbar spondylosis Lumbar stenosis with neurogenic claudication Major depressive disorder, recurrent severe without psychotic features Peripheral vascular disease Scoliosis of lumbar spine Skin tear Sleep apnea, unspecified Unspecified dementia without behavioral disturbance Surgical History History of cervical spinal surgery 1979 [facility] C6-C7 laminectomy/fusion/fixation History of heart artery stent (~2006) History of heart bypass surgery (~2007) History of hernia surgery 4x History of knee surgery Right History of lumbar surgery [facility]. L3-L4, L4-L5, L5-S1 decompression History of uvulopalatopharyngoplasty Hx of CABG Hx of cholecystectomy Family History Father Diabetes Mother Colon cancer Hypertension Social History Smoking and tobacco status: former smoker Alcohol intake: never Household members: significant other Marital status: Current occupational status: disabled History of recent travel: No Vitals/I&O/Wt Last Vital Signs Pulse 73 03/09/20 17:13 Resp 18 03/09/20 17:13 BP 120/78 03/09/20 17:13 Pulse Ox 97 03/09/20 17:13 Weight last 48 hrs Weight 81.647 kg Physical Exam Narrative: EXAM NARRATIVE: General exam is a white male, confused but can tell me his name. Tells me his caregivers name. Reports he needs help but cannot define what he needs help regarding. Neurologic: No obvious focal deficits Skin no rash HEENT: Pupils equally round. Oropharynx clear. Neck is supple no lymphadenopathy or thyromegaly Cardiovascular regular rate and rhythm without murmur, no S3 or S4 Lungs clear no wheezing or crackles Abdomen soft nontender with positive bowel sounds. No obvious organomegaly no obvious hernias Extremities no cyanosis clubbing or edema, cap refill brisk Urinary Catheter Management^: Miranda: Cath Placed During This Visit: yes Reason for Continuing Indwelling Catheter: Acute Urinary Retention or Obstruction Urinary Catheter Date of Insertion: 03/09/20 Urinary Catheter Time of Insertion: 19:30 Data : 03/09/20 18:50 03/09/20 17:55 Micro: Microbiology 03/09/20 17:55 Blood Culture - Preliminary Blood SPECIMEN COLLECTED 03/09/20 17:50 Blood Culture - Preliminary Blood SPECIMEN COLLECTED Other data: Troponin initial is elevated at 46, with 120-minute of 41. LFTs normal Urinalysis negative. Urine drug screen positive for opiates. Rapid COVID negative EKG demonstrates sinus rhythm, normal axis, incomplete right bundle branch block, flipped T waves V2, V3 and inferior leads change from previous. September 2019 MELIZA demonstrated normal LV function, no vegetations on any valves A&P Assessment and plan (1) Acute renal failure: Place Miranda Renal ultrasound for structure Close follow up creatinine closely Check CK Hydration Hold ALEJANDRA inhibitor, hold Lasix Status: Acute Qualifiers: Acute renal failure type: unspecified Qualified Code(s): N17.9 - Acute kidney failure, unspecified (2) Change in mental status: One-to-one sitter Hold altering medication including muscle relaxant, oxycodone Monitor for withdrawal Consider reduced dosing of sertraline, Seroquel. For now we will hold and this will need to be addressed tomorrow. Status: Acute (3) Leukocytosis: Monitor for any fever At this point we will not initiate antibiotics No evidence of sepsis on exam Status: Acute (4) Elevated troponin: Continue to follow. EKG was abnormal. Continue aspirin, Eliquis, carvedilol Note that he is not on a statin currently at home. This will need to be reassessed on discharge Status: Acute Additional A&P Information History of coronary disease Underlying dementia Chronic back pain with history of chronic narcotic use. Holding narcotics currently. Monitor for withdrawal History of diastolic heart failure, currently compensated. History of DVT, continue Eliquis History of hypertension. Hold meds now but likely will need to restart Norvasc tomorrow History of COPD. No evidence of exacerbation Multiple other medical problems as outlined in past medical history. Allow natural . I discussed this extensively with his common-law who is his caregiver. This is his directive as well prior to him having significant dementia. Lovenox for DVT prophylaxis Will need one-to-one sitter Attestations Medical Necessity Statement*: Will need greater than 2 midnight stay for evaluation and treatment of confusion, acute renal failure Time Spent in Patient Care: Greater than 35 minutes Coding Level of Care Code Acute Market Survey Representative for g Fwd Diagnoses Acute renal failure N17.9 Acute renal failure type: unspecified Change in mental status R41.82 Leukocytosis D72.829 Elevated troponin R79.89
[2020-03-09 19:36] VITALS: BP 135/78; PULSE 65; RESP 16; TEMP 37.1; O2SAT 98
--- NOTE | 2020-03-09 19:45 | ECG_ITS ---
[facility] Test Date: 2020-03-09 Pat Name: Anurag Rios Department: Room: Gender: Male Photo Editor: : 1940 Requested By: Yanni Sanchez Order Number: [id number] Tuan MD: Velvet Park M.D. Measurements Intervals [place] Rate: 70 P: 66 [place]: 210 QRS: 59 QRSD: 111 T: -1 QT: 486 QTc: 525 Interpretive Statements SINUS RHYTHM WITH FIRST DEGREE AV BLOCK MODERATE INTRAVENTRICULAR CONDUCTION DELAY [110+ ms QRS DURATION] ST DEVIATION AND MARKED T-WAVE ABNORMALITY, CONSIDER ANTERIOR ISCHEMIA [-0.5+ mV T WAVE IN V3/V4] Compared to ECG 03/09/2020 18:13:50 Sinus arrhythmia no longer present T-wave abnormality still present Possible ischemia still present Electronically Signed On 03-09-2020 23:49:48 CDT by Velvet Park M.D. [id number]
[2020-03-09 20:27] LABS: Troponin 5 2HR 41.64 ng/L (0-15)
[2020-03-09 20:30] LABS: SARS Covid-2 Antigen Negative (Negative)
[2020-03-09 20:35] LABS: Troponin 5 2HR Delta -4.36 ABS# (0-10)
[2020-03-09 21:04] VITALS: BP 116/85; PULSE 70; RESP 14; O2SAT 100
[2020-03-09 21:06] LABS: Creatine Phosphokinase 107 U/L (39-308)
[2020-03-09 21:46] VITALS: BP 195/62; PULSE 69; RESP 18; TEMP 36.8; O2SAT 93
[2020-03-09] MEDS: sodium chloride 0.9% 1,000 ML 100 ML IV (22:19)
[2020-03-09] MEDS: acetaminophen 325 mg Tablet 650 MG PO (22:24)
[2020-03-09 22:48] VITALS: PULSE 63; RESP 18; O2SAT 94
[2020-03-09 23:26] VITALS: BP 130/75
--- NOTE | 2020-03-09 23:45 | ECG_ITS ---
[facility] Test Date: 2020-03-09 Pat Name: Anurag Rios Department: Room: 262 Gender: Male Hot Blaster: : 1940 Requested By: Yanni Sanchez Order Number: [id number] Tuan MD: Velvet Park M.D. Measurements Intervals [place] Rate: 67 P: 89 [place]: 211 QRS: 24 QRSD: 125 T: -73 QT: 513 QTc: 544 Interpretive Statements SINUS RHYTHM WITH SINUS ARRHYTHMIA WITH FIRST DEGREE AV BLOCK MODERATE INTRAVENTRICULAR CONDUCTION DELAY [110+ ms QRS DURATION] ST DEVIATION AND MARKED T-WAVE ABNORMALITY, CONSIDER ANTERIOR ISCHEMIA [-0.5+ mV T WAVE IN V3/V4] INTERPRETATION BASED ON A DEFAULT AGE OF 40 YEARS Compared to ECG 03/09/2020 19:31:17 No significant changes Electronically Signed On 03-09-2020 23:55:18 CDT by Velvet Park M.D. [id number] f
[2020-03-10] VITALS (15 sets, daily range): BP systolic 121–155; BP diastolic 65–80; PULSE 57–73; RESP 14–18; TEMP 36.4–36.9; O2SAT 93–98
--- NOTE | 2020-03-10 | USCV_ITS ---
Anurag Rios Age: 80 Gender: M : 1940 Exam Date: 03/10/2020 14:50 Ordering Phys: Danette Barone DO Technologist: Silvio Buckley [place] [facility] [place]: ELEV TROP BP: 137 / 73 HR: 62 Rhythm: Sinus Technical Quality: Good MEASUREMENTS (Male / Female) Normal Values 2D ECHO LVOT Diameter 2.4 cm LV Ejection Fraction MOD 2C 70.2 % LV Ejection Fraction 2C AL 70.0 % LA Diameter 4.3 cm LA Width 3.5 cm LA Height 4.8 cm RA Width 3.3 cm RA Height 4.6 cm Aorta at Sinotubular Diameter 0.9 cm M-MODE LV Diastolic Diameter MM 5.0 cm 4.2 - 5.9 / 3.9 - 5.3 cm LV Systolic Diameter MM 3.0 cm LV Ejection Fraction MM Teich 71.9 % IVS Diastolic Thickness MM 0.9 cm 0.6 - 1.0 / 0.6 - 0.9 cm IVS Systolic Thickness MM 1.2 cm LVPW Diastolic Thickness MM 0.9 cm 0.6 - 1.0 / 0.6 - 0.9 cm LVPW Systolic Thickness MM 1.5 cm RV Diastolic Diameter MM 1.4 cm Aortic Annulus Diameter 3.9 cm LA Ao Ratio MM 1.1 MV E Point Septal Separation 1.2 cm FINDINGS Left Ventricle Normal left ventricular cavity size. No regional wall motion abnormalities. Normal left ventricular systolic function. Left ventricular ejection fraction is estimated at 71 %. Right Ventricle Right Atrium Left Atrium Mitral Valve Severely thickened mitral valve. Severe mitral annular calcification. No mitral valve stenosis. No mitral valve regurgitation. Aortic Valve Tricuspid Valve Pulmonic Valve Pericardium Aorta CONCLUSIONS 1-Normal left ventricular cavity size. No regional wall motion abnormalities. Normal left ventricular systolic function. Left ventricular ejection fraction is estimated at 71 %. 2-Severely thickened mitral valve. Severe mitral annular calcification. No mitral valve stenosis. No mitral valve regurgitation. 3-Please note that valves are opening and closing fine however no Doppler assessment performed therefore cannot assess regurgitation. 4-There is no pericardial effusion. 5-When compared to the prior echocardiogram dated 09/27/2019 this is a limited echo however no interval change Moody Mcadams MD (Electronically Signed) Final Date: 10 March 2020 17:56 C MTDD
[2020-03-10 00:06] LABS: Troponin 5 6HR 39.74 ng/L (0-15)
[2020-03-10 00:09] LABS: Troponin 5 6HR Delta -6.26 ng/L (0-12)
[2020-03-10] MEDS: morphine 4 mg/mL SDV 1 mL 1 MG IVP ×5 (00:12→17:42)
[2020-03-10 05:39] LABS: Basophils # 0.1 10^3/uL (0.0-0.1); Basophils % 0.6 %; Eosinophils # 0.1 10^3/uL (0.0-0.8); Eosinophils % 0.6 %; Hematocrit 34.7 % (42.0-52.0); Hemoglobin 11.3 g/dL (11.7-16.6); Lymphocytes # 2.2 10^3/uL (0.8-4.8); Lymphocytes % 20.5 %; Mean Corpuscular HGB Conc 32.6 g/dL (30.0-36.0); Mean Corpuscular Hemoglobin 27.7 pg (28.0-34.0); Mean Platelet Volume 10.5 fL (7.4-10.4); Monocytes # 1.3 10^3/uL (0.2-0.9); Monocytes % 11.6 %; Neutrophils # 7.26 10^3/uL (1.8-7.7); Neutrophils % 66.4 %; Nucleated Red Blood Cells % 0 %; Platelet Count 238 10^3/cmm (130-400); Red Blood Count 4.08 10^6/uL (4.1-5.3); Red Cell Distribution Width 14.5 % (12.1-15.1); White Blood Count 10.9 10^3/uL (4.0-10.0)
[2020-03-10 06:09] LABS: Alanine Aminotransferase 11 U/L (0-41); Albumin Level 3.6 g/dL (3.5-5.2); Alkaline Phosphatase 83 IU/L (40-130); Anion Gap 20.9 (5-19); Aspartate Amino Transferase 18 U/L (0-40); Blood Urea Nitrogen 62 mg/dL (8-23); Calcium 9.4 mg/dL (8.5-10.5); Carbon Dioxide 23 mmol/L (22-29); Chloride 96 mmol/L (98-107); Creatinine Clr Calc Pharmacy 27.7457; Globulin 3.9 g/dL (1.3-4.6); Glucose 83 mg/dL (65-115); Magnesium 2.1 mg/dL (1.7-2.3); Osmolality Calculated 282 mOsm/kg (285-295); Sodium 137 mmol/L (136-145); Total Bilirubin 0.5 mg/dL (0.15-1.2); Total Protein 7.5 g/dL (6.6-8.7)
[2020-03-10 06:17] LABS: Potassium 2.9 mmol/L (3.5-5.1)
[2020-03-10] MEDS: potassium chloride premix 40 MEQ/100 ML PREMIX 25 MEQ IV (06:53)
[2020-03-10] MEDS: sodium chloride 0.9% 1,000 ML 100 ML IV ×2 (08:29→18:11)
[2020-03-10] MEDS: carvedilol 12.5 mg Tablet PO ×2 (08:35→18:12)
[2020-03-10] MEDS: polyethylene glycol 3350 Pkt 17 gm PO ×3 (08:35→18:12)
[2020-03-10] MEDS: apixaban 5 mg Tablet PO ×2 (08:35→18:12)
--- NOTE | 2020-03-10 09:17 | XRR_ITS ---
PROCEDURE INFORMATION: Exam: XR Abdomen, 1 View Exam date and time: 03/10/2020 9:37 AM Age: 80 years old Clinical indication: Abdominal pain; Generalized; Patient HX: PT unable to provide history; Additional info: Abd pain TECHNIQUE: Imaging protocol: XR of the abdomen. Views: Frontal supine view of the abdomen. 1 View. COMPARISON: CT abdomen pelvis w con* [id number] 03/16/2019 8:50 PM FINDINGS: Gastrointestinal tract: Combined small bowel and colonic dilatation, along with prominent stool. Intraperitoneal space: Status post ventral herniorrhaphy. Bones/joints: Osteopenia, degenerative change, and scoliosis. Median sternotomy. Organs: status post cholecystectomy. Vascular: vascular calcification. XR/XR KUB portable [id number] IMPRESSION: Combined small bowel and colonic dilatation, along with prominent stool.
[2020-03-10 10:16] LABS: Thyroid Stimulating Hormone 1.23 uIU/mL (0.27-4.20); Vitamin B12 279 pg/mL (232-1245)
--- NOTE | 2020-03-10 10:52 | PC.CHAP ---
Pastoral Care Encounter/Spiritual Assessment Type of Contact [] Declined manager city visit [] Patient/Family/Request visit [] Outpatient visit [] Follow-up visit [] Physician referral [] Code/Alert [] Routine visit [] Staff referral [] Actively dying [] Patient sleeping [] Family support [] [] Out of room [] Palliative care [] [] Receiving care in room [] Pre-surgical visit [] Trauma [] Long length of stay [] ICU visit [] Other: Relational/Emotional Strength [] Patient feels connected with others/family/visitors/staff [] Distress [] Loneliness/isolation [] Abandonment Spirituality of Patient [] Person of Vanna [] Attends Cheondoism of their Vanna [] Believes in Prayer [] Reads Bible or Scientology materials [] There are Spiritual issues to be addressed Firer Locomotive Crane Interventions [] Prayer [] Active listening [] Non-anxious presence [] Spiritual/emotional support [] Crisis/trauma care [] Spiritual counseling [] Bereavement support [] Provided bereavement packet [] Provided Bible/devotional materials [] Provided toy/stuffed animal, coloring book to patient or family member [] Provided Communion [] Anointing/[place] [] Salvation [] Completed spiritual assessment [] Other: Impact on Illness or Injury [] Angry [] Fearful [] Anxious [] Often cries [] Exhaustion [] Unable to work [] Unable to attend faith [] Unable to walk/stand [] Unable to read [] Unable to drive [] Unable to eat/drink [] Unable to sleep [] Unable to be with family [] Patient intubated [] Other: Summary Patient busy with staff, Follow up visit needed. Time spent with patient
[2020-03-10 11:03] LABS: Folate Level 18.9 ng/mL (4.5-32.2)
--- NOTE | 2020-03-10 11:10 | PM.PN ---
Subjective Subjective: Interval history: Patient is awake in bed at time of exam. He is able to tell me his full name and date of and reports that he is in the hospital. He is uncertain of the year, unable to tell me the month of year. He reports some abdominal discomfort, no nausea or vomiting. Patient denies any chest pain, no trouble breathing. Sitter at bedside during exam. Sitter reported that anytime patient tries to eat he spits it out immediately, no choking or concern for aspiration but does not swallow. Vitals/I&O/Wt Last Vital Signs Temp 98.3 F 03/10/20 07:52 Pulse 67 03/10/20 08:13 Resp 16 03/10/20 08:32 BP 153/80 03/10/20 07:52 Pulse Ox 98 03/10/20 08:13 03/09/20 03/10/20 03/10/20 22:59 06:59 14:59 Intake Total 1000 / 1000 Output Total 750 / 750 400 / 400 Balance -750 / -750 600 / 600 Weight last 48 hrs Weight 83.574 kg Weight 81.647 kg Physical Exam Const: COMMON NORMALS: alert GENERAL APPEARANCE: cooperative ORIENTATION/CONSCIOUSNESS: Yes awake and Yes oriented to person; not oriented to place HENMT: COMMON NORMALS: normocephalic and atraumatic HEAD & SCALP: normocephalic and atraumatic Eye: COMMON NORMALS: Equal, round and reactive pupils present PUPIL: Yes Equal, round and reactive pupils present Neck/C-Spine: COMMON NORMALS: supple GENERAL: Yes normal visual inspection Resp: COMMON NORMALS: normal respiratory effort EFFORT & INSPECTION: Yes symmetric chest movement and No tachypneic AUSCULTATION: no rhonchi and no wheezes Cardio: COMMON NORMALS: regular rate and regular rhythm RATE: regular rate RHYTHM: regular rhythm OTHER: Faint systolic murmur GI: COMMON NORMALS: Soft to palpation and non-tender INSPECTION: No abdominal distension AUSCULTATION: Yes normoactive bowel sounds PALPATION: Yes Soft to palpation Extremity: COMMON NORMALS: no clubbing, cyanosis or edema and no calf tenderness Neuro: COMMON NORMALS: CN's II-XII intact bilaterally and moves all extremities SENSORIUM/ORIENTATION: Yes alert, Yes oriented to person and No oriented to place OTHER: No facial droop, speech is clear Psych: COMMON NORMALS: cooperative OTHER: Confusion secondary to dementia, patient answers most questions appropriately, cooperative during exam Skin: COMMON NORMALS: no rashes or lesions noted GENERAL SKIN EXAM: no rashes or lesions noted Urinary Catheter Management^: Miranda: Cath Placed During This Visit: yes Reason for Continuing Indwelling Catheter: Acute Urinary Retention or Obstruction Urinary Catheter Date of Insertion: 03/09/20 Urinary Catheter Time of Insertion: 19:30 Data : 03/10/20 01:51 03/10/20 01:51 Micro: Microbiology 03/09/20 17:55 Blood Culture - Preliminary Blood SPECIMEN COLLECTED 03/09/20 17:50 Blood Culture - Preliminary Blood SPECIMEN COLLECTED A&P Assessment and plan (1) Acute renal failure: No evidence of any infectious process at this time, urine does not show evidence of UTI Renal ultrasound without any acute abnormality Miranda catheter remains in place Appears to be prerenal with significantly elevated BUN, holding nephrotoxic medications including lisinopril and Lasix. Giving gentle IV fluids. Status: Acute Qualifiers: Acute renal failure type: unspecified Qualified Code(s): N17.9 - Acute kidney failure, unspecified (2) Change in mental status: Continue sitter at this time Attempted to call patient's caregiver, Stefanie, this morning at approximately 11 AM however no answer. Believed to have some underlying dementia Caution with sedating medications. Zoloft decreased to 100 mg daily, Seroquel decreased to 50 mg at bedtime, oxycodone spaced out to every 8 hours as needed for severe pain, baclofen spaced out to every 8 hours as needed for severe spasms. Caution with the sedating medications. We will attempt to get in touch with patient's family member, Stefanie, again later today. Status: Acute (3) Leukocytosis: No evidence of any acute infectious process at this time, will hold off on further antibiotics Status: Acute (4) Elevated troponin: Mildly elevated troponin with no significant delta, likely secondary to acute kidney injury Patient denies any chest pain, will continue close monitoring on telemetry We will repeat echocardiogram, last one from 09/26 reviewed, limited at this time Patient had prior severe three-vessel disease, not having any chest pain or shortness of breath but if any continued cardiac symptoms may require cardiology consultation. Status: Acute Additional A&P Information Coronary artery disease: Followed by Dr. Park in the outpatient setting, cardiac cath in September 2012, severe three-vessel disease, Underlying dementia Chronic back pain with history of chronic narcotic use. Holding narcotics currently. Monitor for withdrawal History of diastolic heart failure, currently compensated. History of DVT, continue Eliquis History of hypertension: Restart amlodipine 5 mg daily History of COPD. No evidence of exacerbation, wean oxygen to room air with goal oxygen saturation of 90 to 92% Dementia Lumbosacral radiculopathy Reported abdominal pain: KUB ordered for further evaluation, shows large amount of stool, will continue with stool softener and laxative CODE STATUS: Allow natural . This was discussed with contact on date of admission DVT prophylaxis: Lovenox Diet: Cardiac diet Attestations Medical Necessity Statement*: Requires further hospitalization due to acute kidney injury Coding Level of Care Code Acute Computer Systems Design Analyst for Katiuska Carter Diagnoses Acute renal failure N17.9 Acute renal failure type: unspecified Change in mental status R41.82 Leukocytosis D72.829 Elevated troponin R79.89
--- NOTE | 2020-03-10 11:58 | PC.OT ---
OT note: Potassium noted to be 2.9 and OT recommendations are to hold if under 3.2. Will hold at this time.
[2020-03-10] MEDS: sertraline 100 mg Tablet PO (13:02)
[2020-03-10] MEDS: docusate sodium 100 mg Capsule PO ×2 (13:02→18:12)
[2020-03-10] MEDS: amlodipine 5 mg Tablet PO (13:02)
[2020-03-10 14:33] LABS: Ammonia 16 umol/L (16-60)
[2020-03-10 14:34] LABS: Potassium 3.1 mmol/L (3.5-5.1)
--- NOTE | 2020-03-10 14:42 | PC.NURSE ---
Report to Oliva AVILA at this time.
[2020-03-10] MEDS: oxyCODONE IR 30 mg Tablet 10 MG PO (16:29)
[2020-03-10] MEDS: potassium chloride oral liq 20 mEq/15 mL UDC 40 MEQ PO (16:30)
[2020-03-10] MEDS: quetiapine 100 mg Tablet 50 MG PO (21:42)
--- NOTE | 2020-03-10 21:46 | US_ITS ---
WS: [id number] RENAL ULTRASOUND URINARY BLADDER ULTRASOUND HISTORY: renal failure COMPARISON: None available. TECHNIQUE: 2-D and color Doppler imaging of the kidney submitted. Right kidney: 9.8 cm x 5.2 cm x 6.0 cm. Normal echogenicity with no hydronephrosis or mass. Left kidney: 10.8 cm x 5.3 cm x 5.8 cm. LEFT kidney is difficult to visualize. May be some increased echogenicity. No hydronephrosis. Mass ca nnot be excluded. Aorta: Not well visualized. Urinary Bladder: Miranda catheter present in a nondistended bladder. US/US renal BI with bladder IMPRESSION: 1. Limited evaluation of the kidneys and urinary bladder. 2. No hydronephrosis. 3. Nondistended urinary bladder due to Miranda catheter.
[2020-03-11] VITALS (10 sets, daily range): BP systolic 150–191; BP diastolic 75–100; PULSE 59–91; RESP 16–18; TEMP 36.8–37.4; O2SAT 94–97
[2020-03-11 05:40] LABS: Basophils # 0.1 10^3/uL (0.0-0.1); Basophils % 0.6 %; Eosinophils # 0.2 10^3/uL (0.0-0.8); Eosinophils % 2.7 %; Hematocrit 37.1 % (42.0-52.0); Lymphocytes # 1.5 10^3/uL (0.8-4.8); Lymphocytes % 17.5 %; Mean Corpuscular HGB Conc 32.3 g/dL (30.0-36.0); Mean Corpuscular Hemoglobin 27.6 pg (28.0-34.0); Mean Corpuscular Volume 85.3 fL (80-94); Mean Platelet Volume 10.2 fL (7.4-10.4); Monocytes # 0.9 10^3/uL (0.2-0.9); Monocytes % 10.6 %; Neutrophils # 5.91 10^3/uL (1.8-7.7); Neutrophils % 68.3 %; Nucleated Red Blood Cells % 0 %; Platelet Count 216 10^3/cmm (130-400); Red Blood Count 4.35 10^6/uL (4.1-5.3); Red Cell Distribution Width 14.2 % (12.1-15.1); White Blood Count 8.7 10^3/uL (4.0-10.0)
[2020-03-11] MEDS: sodium chloride 0.9% 1,000 ML 100 ML IV ×3 (05:53→23:38)
[2020-03-11] MEDS: oxyCODONE IR 30 mg Tablet 10 MG PO ×2 (05:53→19:58)
[2020-03-11 06:04] LABS: Alanine Aminotransferase 14 U/L (0-41); Albumin Level 3.4 g/dL (3.5-5.2); Alkaline Phosphatase 74 IU/L (40-130); Anion Gap 18.1 (5-19); Aspartate Amino Transferase 19 U/L (0-40); Blood Urea Nitrogen 34 mg/dL (8-23); Calcium 8.7 mg/dL (8.5-10.5); Carbon Dioxide 22 mmol/L (22-29); Chloride 100 mmol/L (98-107); Creatinine Clr Calc Pharmacy 80.5451; Globulin 3.8 g/dL (1.3-4.6); Glucose 106 mg/dL (65-115); Osmolality Calculated 282 mOsm/kg (285-295); Potassium 3.1 mmol/L (3.5-5.1); Sodium 137 mmol/L (136-145); Total Bilirubin 0.6 mg/dL (0.15-1.2); Total Protein 7.2 g/dL (6.6-8.7)
[2020-03-11] MEDS: docusate sodium 100 mg Capsule PO ×2 (09:10→17:53)
[2020-03-11] MEDS: potassium chloride oral liq 20 mEq/15 mL UDC 40 MEQ PO (09:10)
[2020-03-11] MEDS: apixaban 5 mg Tablet PO ×2 (09:10→17:53)
[2020-03-11] MEDS: sertraline 100 mg Tablet PO (09:11)
[2020-03-11] MEDS: multivitamin therapeutic Tablet 1 TAB PO (09:11)
[2020-03-11] MEDS: amlodipine 5 mg Tablet PO (09:11)
[2020-03-11] MEDS: polyethylene glycol 3350 Pkt 17 gm PO (09:11)
[2020-03-11] MEDS: carvedilol 12.5 mg Tablet PO ×2 (09:11→17:53)
[2020-03-11] MEDS: acetaminophen 325 mg Tablet 650 MG PO (11:01)
--- NOTE | 2020-03-11 16:46 | PM.PN ---
Subjective Subjective: Interval history: Patient awake in bed at time of exam. He was much more alert today, able to provide me his full name, date of and report that he was in the hospital. Reported that he was in the hospital in [place], somewhat confused with location but otherwise easily redirected. He denied any chest pain, no shortness of breath, reported some abdominal bloating. Vitals/I&O/Wt Last Vital Signs Temp 99.0 F 03/11/20 11:10 Pulse 65 03/11/20 11:10 Resp 18 03/11/20 11:10 BP 156/80 03/11/20 11:10 Pulse Ox 94 03/11/20 11:10 03/11/20 03/11/20 03/11/20 06:59 14:59 22:59 Intake Total 1056.667 / 3516.667 250 / 250 Output Total 700 / 2300 450 / 450 Balance 356.667 / 1216.667 -200 / -200 Weight last 48 hrs Weight 89.159 kg Weight 83.574 kg Weight 81.647 kg Physical Exam Const: COMMON NORMALS: alert GENERAL APPEARANCE: cooperative ORIENTATION/CONSCIOUSNESS: Yes awake and Yes oriented to person; not oriented to place HENMT: COMMON NORMALS: normocephalic and atraumatic HEAD & SCALP: normocephalic and atraumatic Eye: COMMON NORMALS: Equal, round and reactive pupils present PUPIL: Yes Equal, round and reactive pupils present Neck/C-Spine: COMMON NORMALS: supple GENERAL: Yes normal visual inspection Resp: COMMON NORMALS: normal respiratory effort EFFORT & INSPECTION: Yes symmetric chest movement and No tachypneic AUSCULTATION: no rhonchi and no wheezes Cardio: COMMON NORMALS: regular rate and regular rhythm RATE: regular rate RHYTHM: regular rhythm OTHER: Faint systolic murmur GI: COMMON NORMALS: Soft to palpation and non-tender INSPECTION: No abdominal distension AUSCULTATION: Yes normoactive bowel sounds PALPATION: Yes Soft to palpation Extremity: COMMON NORMALS: no clubbing, cyanosis or edema and no calf tenderness Neuro: COMMON NORMALS: CN's II-XII intact bilaterally and moves all extremities SENSORIUM/ORIENTATION: Yes alert, Yes oriented to person and No oriented to place OTHER: No facial droop, speech is clear Psych: COMMON NORMALS: cooperative OTHER: Confusion secondary to dementia, patient answers most questions appropriately, cooperative during exam Skin: COMMON NORMALS: no rashes or lesions noted GENERAL SKIN EXAM: no rashes or lesions noted Urinary Catheter Management^: Miranda: Cath Placed During This Visit: yes Reason for Continuing Indwelling Catheter: Not indwelling catheter Urinary Catheter Date of Insertion: 03/09/20 Urinary Catheter Time of Insertion: 19:30 Data : 03/11/20 05:05 03/11/20 05:05 Micro: Microbiology 03/10/20 18:15 Blood Culture - Preliminary Blood SPECIMEN COLLECTED 03/10/20 18:12 Blood Culture - Preliminary Blood SPECIMEN COLLECTED 03/09/20 17:50 Blood Culture - Preliminary Blood Gram positive cocci 03/09/20 17:55 Blood Culture - Preliminary Blood Gram positive cocci A&P Assessment and plan (1) Acute renal failure: Secondary to prerenal etiology and dehydration Improved and appears to be at baseline Status: Acute Qualifiers: Acute renal failure type: unspecified Qualified Code(s): N17.9 - Acute kidney failure, unspecified (2) Change in mental status: With concern for acute renal failure and infectious etiology with blood cultures returning gram-positive cocci. With underlying dementia Caution with sedating medications. Zoloft decreased to 100 mg daily, Seroquel decreased to 50 mg at bedtime, oxycodone spaced out to every 8 hours as needed for severe pain, baclofen spaced out to every 8 hours as needed for severe spasms. Caution with the sedating medications. We will attempt to get in touch with patient's family member, Pat, again later today. Status: Acute (3) Leukocytosis: With blood cultures returning gram-positive cocci, continue with vancomycin, repeat blood cultures ordered and pending Status: Acute (4) Elevated troponin: Mildly elevated troponin with no significant delta, likely secondary to acute kidney injury Patient denies any chest pain, will continue close monitoring on telemetry We will repeat echocardiogram, last one from 09/26 reviewed, limited at this time shows no significant changes from September Patient had prior severe three-vessel disease, not having any chest pain or shortness of breath but if any continued cardiac symptoms may require cardiology consultation. Status: Acute Additional A&P Information Bacteremia: Gram-positive cocci in 2 out of 4 bottles on blood cultures, repeat ordered and pending, continue with vancomycin at this time Coronary artery disease: Followed by Dr. Park in the outpatient setting, cardiac cath in September 2012, severe three-vessel disease, Underlying dementia Chronic back pain with history of chronic narcotic use. Holding narcotics currently. Monitor for withdrawal History of diastolic heart failure, currently compensated. History of DVT, continue Eliquis History of hypertension: Restart amlodipine 5 mg daily History of COPD. No evidence of exacerbation, wean oxygen to room air with goal oxygen saturation of 90 to 92% Dementia Lumbosacral radiculopathy Reported abdominal pain: KUB ordered for further evaluation, shows large amount of stool, will continue with stool softener and laxative CODE STATUS: Allow natural . This was discussed with contact on date of admission DVT prophylaxis: Lovenox Diet: Cardiac diet Attestations Medical Necessity Statement*: Patient requires further hospitalization due to bacteremia with concern for acute renal failure Coding Level of Care Code Acute Cardiology Physician for Katiuska Carter Diagnoses Acute renal failure N17.9 Acute renal failure type: unspecified Change in mental status R41.82 Leukocytosis D72.829 Elevated troponin R79.89
[2020-03-11] MEDS: quetiapine 100 mg Tablet 50 MG PO (20:42)
[2020-03-12] VITALS (12 sets, daily range): BP systolic 120–173; BP diastolic 80–97; PULSE 74–96; RESP 16–22; TEMP 36.4–37.3; O2SAT 92–98
[2020-03-12] MEDS: oxyCODONE 5 mg IR Tab/Cap 10 MG PO ×3 (04:36→15:12)
[2020-03-12 05:42] LABS: Basophils # 0.1 10^3/uL (0.0-0.1); Basophils % 0.5 %; Eosinophils # 0.1 10^3/uL (0.0-0.8); Eosinophils % 1.4 %; Hematocrit 40.4 % (42.0-52.0); Hemoglobin 13.1 g/dL (11.7-16.6); Lymphocytes # 1.9 10^3/uL (0.8-4.8); Lymphocytes % 18.6 %; Mean Corpuscular HGB Conc 32.4 g/dL (30.0-36.0); Mean Corpuscular Hemoglobin 27.5 pg (28.0-34.0); Mean Corpuscular Volume 84.9 fL (80-94); Mean Platelet Volume 10.5 fL (7.4-10.4); Monocytes # 0.9 10^3/uL (0.2-0.9); Monocytes % 8.5 %; Neutrophils # 7.31 10^3/uL (1.8-7.7); Neutrophils % 70.6 %; Nucleated Red Blood Cells % 0 %; Platelet Count 258 10^3/cmm (130-400); Red Blood Count 4.76 10^6/uL (4.1-5.3); Red Cell Distribution Width 13.9 % (12.1-15.1); White Blood Count 10.4 10^3/uL (4.0-10.0)
[2020-03-12 06:04] LABS: Alanine Aminotransferase 14 U/L (0-41); Albumin Level 3.2 g/dL (3.5-5.2); Alkaline Phosphatase 77 IU/L (40-130); Anion Gap 14.2 (5-19); Aspartate Amino Transferase 23 U/L (0-40); Blood Urea Nitrogen 13 mg/dL (8-23); Calcium 9.3 mg/dL (8.5-10.5); Carbon Dioxide 25 mmol/L (22-29); Chloride 103 mmol/L (98-107); Globulin 4.1 g/dL (1.3-4.6); Glucose 145 mg/dL (65-115); Osmolality Calculated 287 mOsm/kg (285-295); Potassium 3.2 mmol/L (3.5-5.1); Sodium 139 mmol/L (136-145); Total Bilirubin 0.5 mg/dL (0.15-1.2); Total Protein 7.3 g/dL (6.6-8.7)
--- NOTE | 2020-03-12 06:39 | PC.NURSE ---
SHIFT SUMMARY Has not slept tonight. Yells out for Stefanie or Don. Tells me he wants someone to stay with him. Says he has bad dreams but he has not been asleep. Thought he was seeing bugs on his table. Is confused. Knows he is in the hospital when questioned but thinks is in [place]. Has c/o neck and back pain tonight and received po Oxycodone for pain. Good urine output from Miranda. No loose BM's this shift.
[2020-03-12] MEDS: potassium chloride oral liq 20 mEq/15 mL UDC 40 MEQ PO (09:44)
[2020-03-12] MEDS: FUROsemide 10 mg/mL SDV 2mL 20 MG IVP (09:44)
[2020-03-12] MEDS: polyethylene glycol 3350 Pkt 17 gm PO (09:45)
[2020-03-12] MEDS: multivitamin therapeutic Tablet 1 TAB PO (09:45)
[2020-03-12] MEDS: apixaban 5 mg Tablet PO (09:46)
[2020-03-12] MEDS: docusate sodium 100 mg Capsule PO (09:46)
[2020-03-12] MEDS: amlodipine 5 mg Tablet PO (09:46)
[2020-03-12] MEDS: sertraline 100 mg Tablet PO (09:46)
[2020-03-12] MEDS: carvedilol 12.5 mg Tablet PO ×2 (09:46→17:30)
[2020-03-12] MEDS: ondansetron 2 mg/ML SDV 2 mL 4 MG IVP (09:51)
[2020-03-12] MEDS: baclofen 10 mg Tablet PO ×2 (09:51→15:11)
--- NOTE | 2020-03-12 11:19 | P.PN_ITS ---
Subjective Subjective: Interval history: Patient awake in bed at time of exam this morning. Reported that he would like to have his Miranda catheter removed. He denied any nausea, no vomiting, abdominal bloating has improved but he is still not had a bowel movement. Patient denies any chest pain or shortness of breath. Discussed with him concern for positive blood cultures and need for further work-up and evaluation, he verbalized understanding. Discussed with him again the need for care home facility placement, he verbalized understanding and agreed with plan. Vitals/I&O/Wt Last Vital Signs Temp 98.3 F 03/12/20 07:33 Pulse 82 03/12/20 09:01 Resp 20 H 03/12/20 09:50 BP 157/93 03/12/20 07:33 Pulse Ox 98 03/12/20 09:01 03/11/20 03/12/20 03/12/20 22:59 06:59 14:59 Intake Total 1100 / 1350 240 / 1590 Output Total 1800 / 2250 Balance 1100 / 900 -1560 / -660 -1 Weight last 48 hrs Weight 88.269 kg Weight 89.159 kg Physical Exam Const: COMMON NORMALS: alert GENERAL APPEARANCE: cooperative ORIENTATION/CONSCIOUSNESS: Yes awake and Yes oriented to person; not oriented to place HENMT: COMMON NORMALS: normocephalic and atraumatic HEAD & SCALP: normocephalic and atraumatic Eye: COMMON NORMALS: Equal, round and reactive pupils present PUPIL: Yes Equal, round and reactive pupils present Neck/C-Spine: COMMON NORMALS: supple GENERAL: Yes normal visual inspection Resp: COMMON NORMALS: normal respiratory effort EFFORT & INSPECTION: Yes symmetric chest movement and No tachypneic AUSCULTATION: no rhonchi and no wheezes Cardio: COMMON NORMALS: regular rate and regular rhythm RATE: regular rate RHYTHM: regular rhythm OTHER: Faint systolic murmur GI: COMMON NORMALS: Soft to palpation and non-tender INSPECTION: No abdominal distension AUSCULTATION: Yes normoactive bowel sounds PALPATION: Yes Soft to palpation Extremity: COMMON NORMALS: no clubbing, cyanosis or edema and no calf tenderness Neuro: COMMON NORMALS: CN's II-XII intact bilaterally and moves all extremities SENSORIUM/ORIENTATION: Yes alert, Yes oriented to person and No oriented to place OTHER: Moves all extremities appropriately Psych: COMMON NORMALS: cooperative OTHER: Confusion secondary to dementia, patient answers most questions appropriately, cooperative during exam Skin: COMMON NORMALS: no rashes or lesions noted GENERAL SKIN EXAM: no rashes or lesions noted Urinary Catheter Management^: Miranda: Cath Placed During This Visit: yes Reason for Continuing Indwelling Catheter: Acute Urinary Retention or Obstruction Urinary Catheter Date of Insertion: 03/09/20 Urinary Catheter Time of Insertion: 19:30 Data : 03/12/20 05:02 03/12/20 05:02 Micro: Microbiology 03/10/20 18:15 Blood Culture - Preliminary Blood NEGATIVE TO DATE 03/10/20 18:12 Blood Culture - Preliminary Blood NEGATIVE TO DATE 03/09/20 17:50 Blood Culture - Preliminary Blood Coagulase negativ staphylococc 03/09/20 17:55 Blood Culture - Preliminary Blood Coagulase negativ staphylococc A&P Assessment and plan (1) Acute renal failure: Secondary to prerenal etiology and dehydration Improved and appears to be at baseline Removal of Miranda catheter today with monitoring of postvoid residuals with bladder scanner for 24 hours Status: Acute Qualifiers: Acute renal failure type: unspecified Qualified Code(s): N17.9 - Acute kidney failure, unspecified (2) Change in mental status: Resolved, appears to be at baseline. Believe this was multifactorial secondary to metabolic encephalopathy and infectious process Caution with sedating medications. Zoloft decreased to 100 mg daily, Seroquel decreased to 50 mg at bedtime, oxycodone spaced out to every 8 hours as needed for severe pain, baclofen spaced out to every 8 hours as needed for severe spasms. Caution with the sedating medications. Status: Acute (3) Leukocytosis: With blood cultures returning gram-positive cocci, continue with vancomycin, repeat blood cultures ordered and pending Status: Acute (4) Elevated troponin: Mildly elevated troponin with no significant delta, likely secondary to acute kidney injury Patient denies any chest pain, will continue close monitoring on telemetry We will repeat echocardiogram, last one from 09/26 reviewed, limited at this time shows no significant changes from September Patient had prior severe three-vessel disease, not having any chest pain or shortness of breath but if any continued cardiac symptoms may require cardiology consultation. Status: Acute Additional A&P Information Bacteremia: Gram-positive cocci in 2 out of 4 bottles on blood cultures, continue on vancomycin, repeat blood cultures remain pending. Coronary artery disease: Followed by Dr. Park in the outpatient setting, cardiac cath in September 2012, severe three-vessel disease, Underlying dementia Chronic back pain with history of chronic narcotic use. Holding narcotics currently. Monitor for withdrawal History of diastolic heart failure, currently compensated. History of DVT, continue Eliquis History of hypertension: Restart amlodipine 5 mg daily History of COPD. No evidence of exacerbation, wean oxygen to room air with goal oxygen saturation of 90 to 92% Dementia Lumbosacral radiculopathy Reported abdominal pain: Secondary to constipation, continue with stool softeners and laxatives as needed Generalized weakness and deconditioning secondary to acute illness, recommend care home facility placement, will continue to work on this with case management CODE STATUS: Allow natural . This was discussed with contact on date of admission DVT prophylaxis: Lovenox Diet: Cardiac diet Attestations Medical Necessity Statement*: Patient requires hospitalization due to bacteremia with acute renal failure Coding Level of Care Code Acute Dot Net Architect for Katiuska Carter Diagnoses Acute renal failure N17.9 Acute renal failure type: unspecified Change in mental status R41.82 Leukocytosis D72.829 Elevated troponin R79.89
--- NOTE | 2020-03-12 11:30 | CT_ITS ---
WS: [id number] CT of the lumbar spine, additional two-dimensional coronal and sagittal imaging was obtained. 0 Clinical Data: bacteremia, prior thoracic and lumbar surgery Comparison: CT lumbar spine, 09/26/2019. DLP: 1981.[address] scans at [facility] use at least one of these dose optimization techniques: automat ed exposure control; mA and/or kV adjustment per patient size (includes targeted exams where dose is matched to clinical indication); or iterative reconstruction. Findings: Diffuse osteoporosis is seen. All the disc heights are narrow from L1-L2 through L5-S1. No recent compression fractures are seen. Diffuse osteoarthritis of all the vertebral bodies is present. There is a slight dextroscoliosis. The transverse processes and SI joints are unremarkable. The malinda ent has had laminectomies at the L4 and L5 levels. The L5 vertebral body has sacral characteristics. CT/CT lumbar spine wo con* [id number] Impression: 1. Degenerative disc changes at all lumbar vertebral disc levels. 2. Osteoporosis and degenerative arthritis. 3. Laminectomies at L5 and S1. 4. Negative for recent compression fracture.
--- NOTE | 2020-03-12 11:30 | CT_ITS ---
WS: [id number] CT scan of the thoracic spine. Additional two-dimensional coronal and sagittal reconstruction was per formed. 03/12/2020 Clinical Data: bacteremia, prior thoracic and lumbar surgery Comparison: CT thoracic spine, 09/26/2019. DLP: 2512.[address] scans at [facility] use at least one of these dose optimization techniques: automat ed exposure control; mA and/or kV adjustment per patient size (includes targeted exams where dose is matched to clinical indication); or iterative reconstruction. Findings: Osteoporosis is present. There is osteoarthritic spurring of all the thoracic vertebral bodies. No co mpression fractures are seen. The spinous processes are intact. There is a dextroscoliosis. Degenerat darryl disc disease is present at L1-L2. The paravertebral regions are unremarkable. Coronary artery charlie cification is present. CT/CT thoracic spin wo con* [id number] Impression: 1. Osteoporosis and osteoarthritis. 2. Dextro scoliosis. 3. No change from prior CT thoracic spine.
[2020-03-12] MEDS: enoxaparin 100 mg/mL Syringe 90 MG SUBCUT (13:10)
--- NOTE | 2020-03-12 13:32 | PC.SOCIAL ---
IMM Update Pg. 2 of IMM updated and reviewed with patient. Copy provided.
[2020-03-12 14:45] LABS: Vancomycin Trough 17.8 ug/mL (10-15)
--- NOTE | 2020-03-12 19:36 | PC.NURSE ---
PATIENT HALLUCINATES THAT THERE ARE BUGS COMING OUT OF A SORE ON HIS HAND AND THAT SOMEONE IS IN THE CLOSET. THE PATIENT SAID HIS VISITOR AT 4PM GAVE HIM A MEDICATION. A WHITE PILL WAS FOUND IN HIS BED. THIS WAS SENT TO PHARMACY TO ID. MAYA WEEKS AT NOON, FIRST VOID WAS IN A URINAL THAT HAD BEEN PLACED B/W HIS LEGS AND IT HAPPENED AROUND 1700. POST VOID RESIDUAL DONE STRAIGHT CATH PER ORDER WAS 60 CC. PATIENT WAS BATHED 2X TODAY. HE HAD A SOFT LARGE STOOL ON THE WAY TO THE CHAIR .
--- NOTE | 2020-03-12 20:21 | PC.NURSE ---
WHILE PERFORMING THE PATIENTS ASSESSMENT A PILL WAS FOUND IN THE BED. THE PILL WAS SENT TO PHARMACY TO BE IDENTIFIED. THE PILL WAS IDENTIFIED AN OXYCODONE IR 30 MG. WHEN ASKED, THE PATIENT TOLD THIS NURSE THAT THE PILL WAS FROM HIS TABLE AT HOME. THIS INFORMATION WAS GIVEN TO THE CHARGE NURSE. THE CHARGE NURSE THEN ACCOMPANIED THIS NURSE TO THE PATIENT'S ROOM. AT THIS TIME THE PATIENT WAS ASKED IF HIS FAMILY MEMBER BROUGHT THE PILL IN WITH THEM FOR HIM, TO WHICH HE ANSWERED YES. WHEN ASKED IF THERE WERE MORE, HE DENIED. HE SAID SHE (SIGNIFICANT OTHER) ONLY BROUGHT ONE BECAUSE SHE IS TIGHT WITH THEM.
[2020-03-12] MEDS: quetiapine 100 mg Tablet 50 MG PO (22:09)
[2020-03-13] VITALS (10 sets, daily range): BP systolic 121–134; BP diastolic 72–84; PULSE 72–98; RESP 14–22; TEMP 36.7–37.1; O2SAT 93–97
[2020-03-13] MEDS: trazodone 100 mg Tablet PO ×2 (01:29→20:59)
[2020-03-13] MEDS: enoxaparin 100 mg/mL Syringe 90 MG SUBCUT ×3 (01:29→23:24)
--- NOTE | 2020-03-13 01:48 | PC.NURSE ---
THE PATIENT'S BED ALARM SOUNDED AND STAFF ENTERED THE ROOM. UPON ENTRY THE PATIENT WAS FOUND HALF ON THE BED AND KNEES ON THE FLOOR. THE PATIENT WAS ASSISTED TO THE CHAIR AND EXAMINED. NO NOTED INJURIES. THE PATIENT DENIED ANY INJURY, DENIED HITTING HIS HEAD. REPORTS HE HAD SOME CHEST PAIN, BUT IT RESOLVED. VITAL SIGNS TAKEN AND STABLE. PHYSICIAN NOTIFIED FROM BEDSIDE AND INFORMED OF SITUATION. VERBAL ORDERS GIVEN TO GIVE THE PATIENT A ONE TIME DOSE OF PO TRAZODONE 100 MG. ORDERS PUT IN. THE PATIENT WAS ASSISTED BACK TO BED. CALL LIGHT WITH IN REACH, TABLE IN REACH, AND BED ALARM ON.
[2020-03-13 06:21] LABS: Basophils # 0.1 10^3/uL (0.0-0.1); Basophils % 0.6 %; Eosinophils # 0.3 10^3/uL (0.0-0.8); Eosinophils % 2.9 %; Hematocrit 38.1 % (42.0-52.0); Hemoglobin 11.8 g/dL (11.7-16.6); Lymphocytes # 2.9 10^3/uL (0.8-4.8); Lymphocytes % 27.9 %; Mean Corpuscular Hemoglobin 27.1 pg (28.0-34.0); Mean Corpuscular Volume 87.4 fL (80-94); Monocytes # 0.9 10^3/uL (0.2-0.9); Monocytes % 8.6 %; Neutrophils # 6.11 10^3/uL (1.8-7.7); Neutrophils % 59.7 %; Nucleated Red Blood Cells % 0 %; Platelet Count 234 10^3/cmm (130-400); Red Blood Count 4.36 10^6/uL (4.1-5.3); Red Cell Distribution Width 14.3 % (12.1-15.1); White Blood Count 10.2 10^3/uL (4.0-10.0)
[2020-03-13 06:40] LABS: Alanine Aminotransferase 15 U/L (0-41); Albumin Level 3.1 g/dL (3.5-5.2); Alkaline Phosphatase 62 IU/L (40-130); Anion Gap 11.4 (5-19); Aspartate Amino Transferase 23 U/L (0-40); Blood Urea Nitrogen 12 mg/dL (8-23); Calcium 8.6 mg/dL (8.5-10.5); Carbon Dioxide 24 mmol/L (22-29); Chloride 105 mmol/L (98-107); Globulin 3.6 g/dL (1.3-4.6); Glucose 100 mg/dL (65-115); Osmolality Calculated 280 mOsm/kg (285-295); Potassium 3.4 mmol/L (3.5-5.1); Sodium 137 mmol/L (136-145); Total Bilirubin 0.3 mg/dL (0.15-1.2); Total Protein 6.7 g/dL (6.6-8.7)
--- NOTE | 2020-03-13 06:42 | PC.NURSE ---
CALL ATTEMPTED TO SIGNIFICANT OTHER MADE AT 0635, MESSAGE LEFT TO RETURN CALL.
[2020-03-13] MEDS: amlodipine 5 mg Tablet PO (08:32)
[2020-03-13] MEDS: sertraline 100 mg Tablet PO (08:32)
[2020-03-13] MEDS: docusate sodium 100 mg Capsule PO ×2 (08:32→18:48)
[2020-03-13] MEDS: potassium chloride oral liq 20 mEq/15 mL UDC 40 MEQ PO (08:32)
[2020-03-13] MEDS: carvedilol 12.5 mg Tablet PO ×2 (08:32→18:48)
[2020-03-13] MEDS: multivitamin therapeutic Tablet 1 TAB PO (08:32)
[2020-03-13] MEDS: polyethylene glycol 3350 Pkt 17 gm PO (08:33)
[2020-03-13] MEDS: oxyCODONE 5 mg IR Tab/Cap 10 MG PO (10:40)
--- NOTE | 2020-03-13 13:31 | P.PN_ITS ---
Subjective Subjective: Interval history: Patient awake in bed at time of exam today. He denied any chest pain or shortness of breath. Patient still in agreement for group home facility placement. Discussed with him concern for positive blood cultures and the need for continued hospitalization, he verbalized understanding and agreed with plan. Patient denies any abdominal pain Vitals/I&O/Wt Last Vital Signs Temp 98.4 F 03/13/20 12:00 Pulse 86 03/13/20 12:00 Resp 16 03/13/20 12:00 BP 121/79 03/13/20 12:00 Pulse Ox 97 03/13/20 12:00 03/12/20 03/13/20 03/13/20 22:59 06:59 14:59 Intake Total 490 / 1665 490 / 2155 360 / 360 Output Total 80 / 1331 141 / 1472 100 / 100 Balance 410 / 334 349 / 683 260 / 260 Weight last 48 hrs Weight 85.049 kg Weight 88.269 kg Physical Exam Const: COMMON NORMALS: alert GENERAL APPEARANCE: cooperative ORIENTATION/CONSCIOUSNESS: Yes awake and Yes oriented to person; not oriented to place HENMT: COMMON NORMALS: normocephalic and atraumatic HEAD & SCALP: normoceph alic and atraumatic Eye: COMMON NORMALS: Equal, round and reactive pupils present PUPIL: Yes Eq ual, round and reactive pupils present Neck/C-Spine: COMMON NORMALS: supple GENERAL: Yes normal visual inspection Resp: COMMON NORMALS: normal respiratory effort EFFORT & INSPECTION: Yes symmetric chest movement and No tachypneic AUSCULTATION: no rhonchi and no wheezes Cardio: COMMON NORMALS: regular rate and regular rhythm RATE: regular rate RHYTHM: regular rhythm OTHER: Faint systolic murmur GI: COMMON NORMALS: Soft to palpation and non-tender INSPECTION: No abdominal distension AUSCULTATION: Yes normoactive bowel sounds PALPATION: Yes Soft to palpation Extremity: COMMON NORMALS: no clubbing, cyanosis or edema and no calf tenderness Neuro: COMMON NORMALS: CN's II-XII intact bilaterally and moves all extremities SENSORIUM/ORIENTATION: Yes alert, Yes oriented to person and No oriented to place OTHER: Moves all extremities appropriately Psych: COMMON NORMALS: cooperative OTHER: Oriented to person, place and time, does have some confusion at times due to dementia Urinary Catheter Management^: Miranda: Cath Placed During This Visit: yes, but has since been removed by the nurse Reason for Continuing Indwelling Catheter: Not indwelling catheter Urinary Catheter Date of Insertion: 03/09/20 Urinary Catheter Time of Insertion: 19:30 Date Urinary Catheter Removed: 03/12/20 Time Urinary Catheter Discontinued: 12:00 Data : 03/13/20 05:20 03/13/20 05:20 A&P Assessment and plan (1) Acute renal failure: Improved Initially prerenal, improved with IV fluids Continue to monitor postvoid residuals with straight cath as needed, may require Miranda catheter placement if continues to have urinary retention Status: Acute Qualifiers: Acute renal failure type: unspecified Qualified Code(s): N17.9 - Acute kidney failure, unspecified (2) Change in mental status: Resolved, patient is at baseline mentation Zoloft decreased to 100 mg daily, Seroquel decreased to 50 mg at bedtime, oxycodone spaced out to every 8 hours as needed for severe pain, baclofen spaced out to every 8 hours as needed for severe spasms. Caution with the sedating medications. Status: Acute (3) Leukocytosis: Bacteremia, further plan as below Status: Acute (4) Elevated troponin: Likely secondary to JUAN on admission No chest pain or shortness of breath reported patient had prior severe three-vessel disease, not having any chest pain or shortness of breath but if any continued cardiac symptoms may require cardiology consultation. Status: Acute Additional A&P Information Coag negative staph bacteremia: 2/4 blood cultures positive. limited ECHO reviewed with severe mitral calcifications, discussed with Dr. Heard for review of possible MELIZA. Appreciate recommendations. Awaiting repeat blood culture results then will proceed with PICC line placement Coronary artery disease: Followed by Dr. Park in the outpatient setting, cardiac cath in September 2012, severe three-vessel disease, Underlying dementia Chronic back pain with history of chronic narcotic use. Holding narcotics currently. Monitor for withdrawal History of diastolic heart failure, currently compensated. History of DVT, holding Eliquis during acute hospital setting and on treatment dose lovenox History of hypertension: Restart amlodipine 5 mg daily History of COPD. No evidence of exacerbation, wean oxygen to room air with goal oxygen saturation of 90 to 92% Dementia Lumbosacral radiculopathy Reported abdominal pain: Secondary to constipation, continue with stool softeners and laxatives as needed Generalized weakness and deconditioning secondary to acute illness, recommend group home facility placement, will need COVID testing within 48hrs of discharge Disposition planning: [facility] CODE STATUS: Allow natural . This was discussed with contact on date of admission DVT prophylaxis: Lovenox treatment dose Diet: Cardiac diet Attestations Medical Necessity Statement*: Patient requires further hospitalization due to bacteremia Coding Level of Care Code Acute Photographic Laboratory Technician for [facility] Fwd Diagnoses Acute renal failure N17.9 Acute renal failure type: unspecified Change in mental status R41.82 Leukocytosis D72.829 Elevated troponin R79.89
[2020-03-13] MEDS: quetiapine 100 mg Tablet 50 MG PO (20:59)
[2020-03-14] VITALS (14 sets, daily range): BP systolic 118–149; BP diastolic 74–93; PULSE 82–102; RESP 15–30; TEMP 35.9–36.8; O2SAT 91–97; BMI 25.4
[2020-03-14] MEDS: acetaminophen 325 mg Tablet 650 MG PO ×2 (03:06→16:10)
[2020-03-14 05:20] LABS: Basophils # 0.1 10^3/uL (0.0-0.1); Basophils % 0.9 %; Eosinophils # 0.6 10^3/uL (0.0-0.8); Hematocrit 36.7 % (42.0-52.0); Hemoglobin 11.7 g/dL (11.7-16.6); Lymphocytes # 3.5 10^3/uL (0.8-4.8); Lymphocytes % 33.1 %; Mean Corpuscular HGB Conc 31.9 g/dL (30.0-36.0); Mean Corpuscular Hemoglobin 27.7 pg (28.0-34.0); Mean Platelet Volume 11.6 fL (7.4-10.4); Monocytes # 0.9 10^3/uL (0.2-0.9); Monocytes % 8.1 %; Neutrophils # 5.44 10^3/uL (1.8-7.7); Neutrophils % 51.5 %; Nucleated Red Blood Cells % 0 %; Platelet Count 243 10^3/cmm (130-400); Red Blood Count 4.22 10^6/uL (4.1-5.3); Red Cell Distribution Width 14.6 % (12.1-15.1); White Blood Count 10.6 10^3/uL (4.0-10.0)
[2020-03-14 06:13] LABS: Alanine Aminotransferase 16 U/L (0-41); Albumin Level 3.3 g/dL (3.5-5.2); Alkaline Phosphatase 60 IU/L (40-130); Anion Gap 13.3 (5-19); Aspartate Amino Transferase 20 U/L (0-40); Blood Urea Nitrogen 10 mg/dL (8-23); Calcium 8.6 mg/dL (8.5-10.5); Carbon Dioxide 25 mmol/L (22-29); Chloride 104 mmol/L (98-107); Globulin 3.6 g/dL (1.3-4.6); Glucose 107 mg/dL (65-115); Osmolality Calculated 284 mOsm/kg (285-295); Potassium 3.3 mmol/L (3.5-5.1); Sodium 139 mmol/L (136-145); Total Bilirubin 0.4 mg/dL (0.15-1.2); Total Protein 6.9 g/dL (6.6-8.7)
--- NOTE | 2020-03-14 08:09 | P.PN_ITS ---
Subjective Subjective: Interval history: Patient awake in bed at time of exam today. He denied any chest pain or shortness of breath, nausea, vomiting, headache, dizziness, dysuria, diarrhea. Discussed in detail with patient for need to of him going to the halfway because severe deconditioning couple of weeks. Patient still in agreement for halfway facility placement. Discussed with him concern for positive blood cultures and the need for continued hospitalization, he verbalized understanding and agreed with plan. Vitals/I&O/Wt Last Vital Signs Temp 98.0 F 03/14/20 07:47 Pulse 96 03/14/20 07:47 Resp 18 03/14/20 07:47 BP 149/80 03/14/20 07:47 Pulse Ox 94 03/14/20 07:47 03/13/20 03/14/20 03/14/20 22:59 06:59 14:59 Intake Total 490 / 850 240 / 1090 Output Total 450 / 550 Balance 490 / 750 -210 / 540 Weight last 48 hrs Weight 85.049 kg Weight 85.049 kg Physical Exam Narrative: EXAM NARRATIVE: General exam is a white male, awake, alert, answering questions appropriately not in acute distress. Neurologic: No obvious focal deficits Skin no rash HEENT: Pupils equally round. Oropharynx clear. Neck is supple no lymphadenopathy or thyromegaly Cardiovascular regular rate and rhythm without murmur, no S3 or S4 Lungs clear no wheezing or crackles Abdomen soft nontender with positive bowel sounds. No obvious organomegaly no obvious hernias Extremities no cyanosis clubbing or edema, cap refill brisk Urinary Catheter Management^: Miranda: Cath Placed During This Visit: yes, but has since been removed by the nurse Reason for Continuing Indwelling Catheter: Not indwelling catheter Urinary Catheter Date of Insertion: 03/09/20 Urinary Catheter Time of Insertion: 19:30 Date Urinary Catheter Removed: 03/12/20 Time Urinary Catheter Discontinued: 12:00 Data : 03/14/20 04:51 03/14/20 05:37 A&P Assessment and plan (1) Gram-positive bacteremia: Status: Acute (2) Leukocytosis: Bacteremia, further plan as below Status: Acute (3) History of lumbar surgery: Status: Chronic (4) Acute renal failure: Resolved. Initially prerenal, improved with IV fluids Continue to monitor postvoid residuals with straight cath as needed, may require Miranda catheter placement if continues to have urinary retention Status: Acute Qualifiers: Acute renal failure type: unspecified Qualified Code(s): N17.9 - Acute kidney failure, unspecified (5) Change in mental status: Status: Acute (6) Elevated troponin: Likely secondary to JUAN on admission No chest pain or shortness of breath reported patient had prior severe three-vessel disease, not having any chest pain or shortness of breath but if any continued cardiac symptoms may require cardiology consultation. Status: Acute (7) Atherosclerotic heart disease of [place] coronary artery without angina pectoris: Status: Acute Qualifiers: [place] vs. transplanted heart: [place] heart Qualified Code(s): I25.10 - Atherosclerotic heart disease of [place] coronary artery without angina pectoris (8) Diastolic heart failure: Status: Acute (9) History of DVT (deep vein thrombosis): Status: Acute (10) Major depressive disorder, recurrent severe without psychotic features: Status: Acute Additional A&P Information Gram-positive bacteremia: History of CABG, chronic back pain. Patient also had gram-positive bacteremia couple of months ago for which she was treated with linezolid to finish a two-week course. Patient having same bacteremia at present. Last time MELIZA was done which suggestive of mitral valve thickening. Patient is due for MELIZA after ruling out COVID-19 on this admission. Most likely patient will require 6 weeks of IV antibiotics. Plan would be for PICC line once blood culture continues to remain negative. Check MRSA. MRSA nares admission was negative. CT spine negative for discitis. Continue vancomycin at renal dose. Change in mental status: Resolved, patient is at baseline mentation Zoloft decreased to 100 mg daily, Seroquel decreased to 50 mg at bedtime, oxycodone spaced out to every 8 hours as needed for severe pain, baclofen spaced out to every 8 hours as needed for severe spasms. Caution with the sedating medications. Diastolic heart failure: Last echo in 2018 shows an EF of 66% with no other WMA with grade 1 diastolic dysfunction, trace AR, trace MR, moderate LVH. Euvolemic for now. Continue to hold off on Lasix. CAD: Post CABG: Continue carvedilol at home dose. Hypertension: Blood pressure well maintained right now. Continue home dose of amlodipine, carvedilol. Will add on lisinopril but at lower dose of 10 mg daily. Chronic opiate use: As per the chart patient has a pain management doctor. Oxycodone was decreased last time to 30 mg every 6 hours. Patient was not altered mental status on admission most likely because of JUAN and multiple psych and oxycodone. Decrease further to 10 mg 3 times daily for now. History of DVT: Patient is on Eliquis at home. Patient over to Lovenox inpatient. We will continue same for now.. History of COPD. No evidence of exacerbation, wean oxygen to room air with goal oxygen saturation of 90 to 92% Dementia Lumbosacral radiculopathy. Reported abdominal pain: Secondary to constipation, continue with stool softeners and laxatives as needed Generalized weakness and deconditioning secondary to acute illness, recommend halfway facility placement, will need COVID testing within 48hrs of discharge Disposition planning: [facility] CODE STATUS: Allow natural . This was discussed with contact on date of admission DVT prophylaxis: Lovenox treatment dose Diet: Cardiac diet Attestations Medical Necessity Statement*: Gram-positive bacteremia, generalized deconditioning. Time Spent in Patient Care: Greater than 35 minutes (>than 50% of time spent in counselling and/or direct pt care on unit) . Coding Level of Care Code Acute Grease Machine Worker for g Fwd Diagnoses Gram-positive bacteremia R78.81 Leukocytosis D72.829 History of lumbar surgery Z98.890 Acute renal failure N17.9 Acute renal failure type: unspecified Change in mental status R41.82 Elevated troponin R79.89 Atherosclerotic heart disease of [place] coronary artery without angina pectoris I25.10 [place] vs. transplanted heart: [place] heart Diastolic heart failure I50.30 History of DVT (deep vein thrombosis) Z86.718 Major depressive disorder, recurrent severe without psychotic features F33.2
[2020-03-14] MEDS: potassium chloride oral liq 20 mEq/15 mL UDC 40 MEQ PO (08:26)
[2020-03-14] MEDS: docusate sodium 100 mg Capsule PO ×2 (08:26→17:54)
[2020-03-14] MEDS: carvedilol 12.5 mg Tablet PO ×2 (08:27→17:54)
[2020-03-14] MEDS: multivitamin therapeutic Tablet 1 TAB PO (08:27)
[2020-03-14] MEDS: amlodipine 5 mg Tablet PO (08:27)
[2020-03-14] MEDS: polyethylene glycol 3350 Pkt 17 gm PO (08:27)
[2020-03-14] MEDS: sertraline 100 mg Tablet PO (08:27)
[2020-03-14] MEDS: lisinopril 10 mg Tablet PO (08:30)
--- NOTE | 2020-03-14 11:32 | ECG_ITS ---
[facility] Test Date: 2020-03-14 Pat Name: Anurag Rios Department: Room: 262 Gender: Male Telecasting Technician: : 1940 Requested By: Josias Busby Order Number: [id number] Tuan MD: Nitza Heard M.D. Measurements Intervals [place] Rate: 94 P: [place]: -1 QRS: 34 QRSD: 106 T: 210 QT: 428 QTc: 537 Interpretive Statements SINUS RHYTHM WITH PAC'S WITH FIRST DEGREE AV BLOCK MODERATE T-WAVE ABNORMALITY, CONSIDER LATERAL ISCHEMIA MODERATE T-WAVE ABNORMALITY, CONSIDER INFERIOR ISCHEMIA Compared to ECG 03/09/2020 22:46:53 Sinus arrhythmia no longer present Intraventricular conduction delay no longer present T-wave abnormality still present Possible ischemia still present Electronically Signed On 03-14-2020 13:14:05 CDT by Nitza Heard M.D. [id number]
--- NOTE | 2020-03-14 11:37 | DCPLANNER ---
Pg 2 of IM updated and reviewed with pt. No questions, copy provided.
[2020-03-14] MEDS: oxyCODONE 5 mg IR Tab/Cap 10 MG PO ×2 (12:46→22:45)
[2020-03-14] MEDS: enoxaparin 100 mg/mL Syringe 90 MG SUBCUT (12:55)
[2020-03-14] MEDS: lactulose oral liq 20 gm/30 mL UDC 30 GM PO (12:57)
--- NOTE | 2020-03-14 12:59 | PM.CONSULT ---
Providers/Reason For Consult Consulting Physican/Specialty*: Dr. Heard, cardiology Reason for Consult*: Staph Bacteremia, evaluate for MELIZA Attending Physician: Josias Busby MD Primary Care Provider: MEGGAN Obando History of Present Illness History of Present Illness Anurag Rios is a 80 year old male with known atherosclerotic heart disease s/p CABG, history of diastolic heart failure, hypertension,hyperlipidemia, h/o DVT in the right leg, chronic low back pain. He was admitted to the hospital in September of this year with complaints of generalized weakness. He had a positive blood culture and grew coagulase-negative staph in 2 of the 4 bottles. He had a transesophageal echocardiogram which was unremarkable. He was treated with IV antibiotics for 2 weeks and repeat blood culture was negative . He has underlying dementia, but was admitted with confusion, decreased appetite and low grade temperature was 100.3. He has not been walking secondary to weakness for at least the last 2 months. His blood Cx 2/4 bottles grew coagulase negative staph and blood cx since then has been negative. Patient has improved clinically and denies ant significant complaints. Review of Systems General: Reports: 10 or more systems reviewed and unremarkable except in HPI and below Const: Reports: fever(s) ENMT: Denies: nasal congestion or epistaxis Card: Denies: swelling of feet/ankles, dyspnea on exertion or orthopnea Resp: Denies: dyspnea or productive cough GI: Denies: hematochezia : Denies: hematuria Neuro: Reports: confusion Jm/Lymph: Denies: petechiae or purpura Meds/Allergies Home Medications and Allergies Home Medications Medication Instructions Recorded Confirmed Last Taken Type apixaban 5 mg tablet 5 mg PO BID 08/05/19 03/09/20 Unknown History baclofen 20 mg tablet 20 mg PO TID PRN 08/05/19 03/09/20 03/08/20 History oxycodone 30 mg tablet See Rx Instructions .ROUTE 08/05/19 03/09/20 03/09/20 History .COMPLEX tab multivitamin [Multiple Vitamins] 1 tab PO DAILY 09/25/19 03/09/20 Unknown History furosemide [Lasix] 40 mg PO BID PRN #0 tab 09/30/19 03/09/20 03/09/20 Rx polyethylene glycol 3350 [Miralax] 17 g PO BID #60 ea 09/30/19 03/09/20 Unknown Rx lisinopril 20 mg tablet 20 mg PO DAILY #90 tab 10/22/19 03/09/20 03/08/20 Rx albuterol sulfate 90 mcg/actuation 2 puff INHALATION QID PRN #8.5 gm 10/26/19 03/09/20 03/06/20 Rx aerosol inhaler carvedilol 12.5 mg tablet 12.5 mg PO BID #60 tab 11/14/19 03/09/20 03/08/20 Rx quetiapine 100 mg tablet 100 mg PO BEDTIME #30 tab 12/09/19 03/09/20 03/07/20 Rx sertraline 100 mg tablet 200 mg PO DAILY #60 tab 12/09/19 03/09/20 Unknown Rx trazodone 100 mg tablet 300 mg PO BEDTIME PRN #90 tab 12/09/19 03/09/20 03/08/20 Rx ostomy supplies #60 gm 12/10/19 03/09/20 Unknown Rx lubiprostone 24 mcg capsule 24 mcg PO BID 30 Days #60 cap 01/13/20 03/09/20 Unknown Rx amlodipine 10 mg tablet 10 mg PO DAILY #90 tab 01/20/20 03/09/20 03/08/20 Rx nitroglycerin 0.4 mg sublingual 0.4 mg SUBLINGUAL Q5M PRN #100 tab 01/20/20 03/09/20 03/07/20 Rx tablet Allergies Allergy/AdvReac Type Severity Reaction Status Date / Time hydromorphone Allergy Mild hives Verified 03/09/20 19:03 Current Medications Current Medications Generic Name Dose Route Start Last Admin Trade Name Freq PRN Reason Stop Dose Admin Acetaminophen 650 mg 03/09/20 20:46 03/14/20 03:06 Tylenol PO 650 mg Q6H PRN Administration Mild/Mod Pain Or Temp >/= 101 Amlodipine Besylate 5 mg 03/10/20 09:00 03/14/20 08:27 Norvasc PO 5 mg DAILY CHRIS Administration Baclofen 10 mg 03/10/20 08:49 03/12/20 15:11 Lioresal PO 10 mg Q8H PRN Administration spasms Carvedilol 12.5 mg 03/10/20 09:00 03/14/20 08:27 Coreg PO 12.5 mg BID CHRIS Administration Docusate Sodium 100 mg 03/10/20 11:10 03/14/20 08:26 Colace PO 100 mg BID CHRIS Administration Enoxaparin Sodium 90 mg 03/12/20 12:00 03/14/20 12:55 Lovenox 1 mg/kg (90 mg) 90 mg SUBCUT Administration Q12H CHRIS Vancomycin HCl 1,250 mg/ 250 mls @ 250 mls/hr 03/12/20 03:00 03/14/20 03:35 Sodium Chloride IV Infused Q12H CHRIS Infusion Lisinopril 10 mg 03/14/20 09:00 03/14/20 08:30 Prinivil PO 10 mg DAILY CHRIS Administration Multivitamins Therapeutic 1 tab 03/11/20 09:00 03/14/20 08:27 Multivitamin Tab PO 1 tab DAILY CHRIS Administration Ondansetron HCl 4 mg 03/09/20 20:46 03/12/20 09:51 Zofran IVP 4 mg Q6H PRN Administration vomiting, or N/V if npo Oxycodone HCl 10 mg 03/11/20 04:00 03/14/20 12:46 Oxycodone Ir PO 10 mg Q8H PRN Administration SEVERE PAIN Polyethylene Glycol 17 gm 03/10/20 11:10 03/14/20 08:27 Miralax PO 17 gm DAILY CHRIS Administration Potassium Chloride 40 meq 03/10/20 16:15 03/14/20 08:26 Potassium Chloride Oral Liquid PO 40 meq DAILY CHRIS Administration Quetiapine Fumarate 50 mg 03/10/20 21:00 03/13/20 20:59 Seroquel PO 50 mg BEDTIME CHRIS Administration Sertraline HCl 100 mg 03/10/20 09:00 03/14/20 08:27 Zoloft PO 100 mg DAILY CHRIS Administration Trazodone HCl 100 mg 03/13/20 20:39 03/13/20 20:59 Desyrel PO 100 mg BEDTIME PRN Administration INSOMNIA PFSH Acute PFSH: Medical History Atherosclerotic heart disease of [place] coronary artery without angina pectoris Benign essential hypertension with target blood pressure below 140/90 CAD (coronary artery disease) Chronic constipation Chronic prescription opiate use COPD (chronic obstructive pulmonary disease) with chronic bronchitis Diastolic heart failure DVT (deep venous thrombosis) Dyslipidemia Generalized anxiety disorder 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 History of DVT (deep vein thrombosis) Hx of cervical spinal arthrodesis Hypertension Intervertebral disc disorder with radiculopathy of lumbosacral region Lower abdominal pain Lumbar disc disease Lumbar spondylosis Lumbar stenosis with neurogenic claudication Major depressive disorder, recurrent severe without psychotic features Peripheral vascular disease Scoliosis of lumbar spine Skin tear Sleep apnea, unspecified Unspecified dementia without behavioral disturbance Surgical History History of cervical spinal surgery 1979 [facility] C6-C7 laminectomy/fusion/fixation History of heart artery stent (~2006) History of heart bypass surgery (~2007) History of hernia surgery 4x History of knee surgery Right History of lumbar surgery [facility]. L3-L4, L4-L5, L5-S1 decompression History of uvulopalatopharyngoplasty Hx of CABG Hx of cholecystectomy Family History Father Diabetes Mother Colon cancer Hypertension Social History Smoking and tobacco status: former smoker Alcohol intake: never Household members: significant other Marital status: Current occupational status: disabled History of recent travel: No Vitals/I&O/Wt Last Vital Signs Temp 97.8 F 03/14/20 11:55 Pulse 102 H 03/14/20 11:55 Resp 15 03/14/20 12:46 BP 131/93 03/14/20 11:55 Pulse Ox 95 03/14/20 11:55 03/13/20 03/14/20 03/14/20 22:59 06:59 14:59 Intake Total 490 / 850 490 / 1340 140 / 140 Output Total 450 / 550 150 / 150 Balance 490 / 750 40 / 790 -10 / -10 Weight last 48 hrs Weight 187 lb 8 oz Weight 187 lb 8 oz Physical Exam Narrative: EXAM NARRATIVE: Const COMMON NORMALS: alert GENERAL APPEARANCE: cooperative ORIENTATION/CONSCIOUSNESS: Yes awake and Yes oriented to person; not oriented to place [facility] COMMON NORMALS: normocephalic and atraumatic HEAD & SCALP: normocephalic and atraumatic Eye COMMON NORMALS: Equal, round and reactive pupils present PUPIL: Yes Equal, round and reactive pupils present Resp COMMON NORMALS: normal respiratory effort AUSCULTATION: no rhonchi, rales and no wheezes Cardio COMMON NORMALS: regular rate and regular rhythm RATE: regular rate RHYTHM: regular rhythm OTHER: No murmur, rub or gallop GI COMMON NORMALS: Soft to palpation and non-tender INSPECTION: No abdominal distension AUSCULTATION: Yes normoactive bowel sounds PALPATION: Yes Soft to palpation Extremity COMMON NORMALS: no clubbing, cyanosis or edema and no calf tenderness Neuro COMMON NORMALS: SENSORIUM/ORIENTATION: Yes alert, Yes oriented to person and No oriented to place OTHER: No facial droop, speech is clear Urinary Catheter Management^: Miranda: Cath Placed During This Visit: yes, but has since been removed by the nurse Reason for Continuing Indwelling Catheter: Not indwelling catheter Urinary Catheter Date of Insertion: 03/09/20 Urinary Catheter Time of Insertion: 19:30 Date Urinary Catheter Removed: 03/12/20 Time Urinary Catheter Discontinued: 12:00 Data Imaging^: Other Imaging: Radiologist's impression: # Most recent cardiac catheterization in September 2012. The angiogram at that time revealed severe three-vessel CAD. The venous graft to the obtuse marginal artery was found to be occluded. The WELDON to the LAD and the venous graft to the PLV branch were found to be patent. There was moderately severe disease in the proximal PLV branch. The LVEDP was slightly elevated. The plan at that time was to optimize medical treatment and to consider PCI of the PLV lesion in the future. #Myocardial perfusion imaging was in 2013. He was found to have no significant ischemia at that time. # TTE CONCLUSIONS 1-Normal left ventricular cavity size. No regional wall motion abnormalities. Normal left ventricular systolic function. Left ventricular ejection fraction is estimated at 71 %. 2-Severely thickened mitral valve. Severe mitral annular calcification. No mitral valve stenosis. No mitral valve regurgitation. 3-Please note that valves are opening and closing fine however no Doppler assessment performed therefore cannot assess regurgitation. 4-There is no pericardial effusion. 5-When compared to the prior echocardiogram dated 09/27/2019 this is a limited echo however no interval change A&P Assessment and plan (1) Gram-positive bacteremia: Blood culture 2/4 positive and since then has been negative. antibiotics as per primary team. MELIZA back in September was negative for endocarditis. - I think it would be prudent to treat him with antibiotics for 6 wk if clinical suspicion is high. -In case bactremia persists we can plan for MELIZA as an outpatient. Status: Acute (2) Diastolic heart failure: Status: Acute Qualifiers: Heart failure chronicity: chronic Qualified Code(s): I50.32 - Chronic diastolic (congestive) heart failure (3) CAD (coronary artery disease): Status: Acute Qualifiers: Coronary Disease-Associated Artery/Lesion type: bypass graft [place] vs. transplanted heart: [place] heart Associated angina: without angina Qualified Code(s): I25.810 - Atherosclerosis of coronary artery bypass graft(s) without angina pectoris (4) Acute renal failure: Resolved. Status: Acute Qualifiers: Acute renal failure type: unspecified Qualified Code(s): N17.9 - Acute kidney failure, unspecified (5) Elevated troponin: Likely secondary to JUAN Status: Acute Additional A&P Information Change in mental status: Resolved, patient is at baseline mentation Hypertension Chronic back pain on opiates History of DVT: Patient is on Eliquis at home. History of COPD Dementia Coding Level of Care Code Acute Manager Software for Chg Fwd Diagnoses Gram-positive bacteremia R78.81 Diastolic heart failure I50.32 Heart failure chronicity: chronic CAD (coronary artery disease) I25.810 Coronary Disease-Associated Artery/Lesion type: bypass graft [place] vs. transplanted heart: [place] heart Associated angina: without angina Acute renal failure N17.9 Acute renal failure type: unspecified Elevated troponin R79.89
--- NOTE | 2020-03-14 13:25 | PC.NURSE ---
Patient complaint of chest pain with shortness of breath. EKG performed, vitals taken. Vitals were temp:98.0, HR:97, RR:18, O2:96% on 2L nasal cannula, and BP: 147/91. Patient using abdominal muscles to breath. Sat patient up in bed. Respiratory was called and assessed patient with no acute distress noted. Will continue to monitor.
[2020-03-14] MEDS: potassium chloride ER 10 mEq Tablet 40 MEQ PO (13:53)
--- NOTE | 2020-03-14 14:51 | PC.CHAP ---
Pastoral Care Encounter/Spiritual Assessment Type of Contact [xx] Declined order dispatcher visit [] Patient/Family/Request visit [] Outpatient visit [] Follow-up visit [] Physician referral [] Code/Alert [] Routine visit [] Staff referral [] Actively dying [] Patient sleeping [] Family support [] [] Out of room [] Palliative care [] [] Receiving care in room [] Pre-surgical visit [] Trauma [] Long length of stay [] ICU visit [] Other: Relational/Emotional Strength [] Patient feels connected with others/family/visitors/staff [] Distress [] Loneliness/isolation [] Abandonment Spirituality of Patient [] Person of Vanna [] Attends Restorationism of their Vanna [] Believes in Prayer [] Reads Bible or Latter Day materials [] There are Spiritual issues to be addressed Agricultural Equipment Mechanic Interventions [] Prayer [] Active listening [] Non-anxious presence [] Spiritual/emotional support [] Crisis/trauma care [] Spiritual counseling [] Bereavement support [] Provided bereavement packet [] Provided Bible/devotional materials [] Provided toy/stuffed animal, coloring book to patient or family member [] Provided Communion [] Anointing/[place] [] Salvation [] Completed spiritual assessment [] Other: Impact on Illness or Injury [] Angry [] Fearful [] Anxious [] Often cries [] Exhaustion [] Unable to work [] Unable to attend roman catholic [] Unable to walk/stand [] Unable to read [] Unable to drive [] Unable to eat/drink [] Unable to sleep [] Unable to be with family [] Patient intubated [] Other: Summary Time spent with patient
[2020-03-14] MEDS: baclofen 10 mg Tablet PO (17:54)
[2020-03-14] MEDS: quetiapine 100 mg Tablet 50 MG PO (22:44)
[2020-03-15] VITALS (13 sets, daily range): BP systolic 108–150; BP diastolic 75–88; PULSE 74–89; RESP 16–26; TEMP 35.8–36.6; O2SAT 94–97
[2020-03-15] MEDS: enoxaparin 100 mg/mL Syringe 90 MG SUBCUT ×2 (01:42→13:19)
[2020-03-15 06:16] LABS: Basophils % 0.3 %; Eosinophils % 0.2 %; Hematocrit 40.3 % (42.0-52.0); Hemoglobin 11.8 g/dL (11.7-16.6); Lymphocytes # 2.1 10^3/uL (0.8-4.8); Lymphocytes % 17.3 %; Mean Corpuscular HGB Conc 29.3 g/dL (30.0-36.0); Mean Corpuscular Hemoglobin 27.6 pg (28.0-34.0); Mean Corpuscular Volume 94.2 fL (80-94); Mean Platelet Volume 10.4 fL (7.4-10.4); Monocytes # 0.9 10^3/uL (0.2-0.9); Monocytes % 7.6 %; Neutrophils # 9.05 10^3/uL (1.8-7.7); Neutrophils % 74.3 %; Nucleated Red Blood Cells % 0 %; Platelet Count 256 10^3/cmm (130-400); Red Blood Count 4.28 10^6/uL (4.1-5.3); White Blood Count 12.2 10^3/uL (4.0-10.0)
[2020-03-15 06:39] LABS: Alanine Aminotransferase 15 U/L (0-41); Albumin Level 3.2 g/dL (3.5-5.2); Alkaline Phosphatase 68 IU/L (40-130); Anion Gap 15.3 (5-19); Aspartate Amino Transferase 22 U/L (0-40); Blood Urea Nitrogen 12 mg/dL (8-23); Calcium 8.9 mg/dL (8.5-10.5); Carbon Dioxide 21 mmol/L (22-29); Chloride 106 mmol/L (98-107); Globulin 3.9 g/dL (1.3-4.6); Glucose 123 mg/dL (65-115); Osmolality Calculated 283 mOsm/kg (285-295); Potassium 4.3 mmol/L (3.5-5.1); Sodium 138 mmol/L (136-145); Total Bilirubin 0.3 mg/dL (0.15-1.2); Total Protein 7.1 g/dL (6.6-8.7)
[2020-03-15] MEDS: albuterol 8 gm MDI 2 PUFF INHALATION ×3 (08:12→19:44)
[2020-03-15] MEDS: sertraline 100 mg Tablet PO (08:59)
[2020-03-15] MEDS: amlodipine 5 mg Tablet PO (08:59)
[2020-03-15] MEDS: polyethylene glycol 3350 Pkt 17 gm PO (08:59)
[2020-03-15] MEDS: oxyCODONE 5 mg IR Tab/Cap 10 MG PO ×2 (08:59→20:50)
[2020-03-15] MEDS: docusate sodium 100 mg Capsule PO ×2 (08:59→17:13)
[2020-03-15] MEDS: lisinopril 10 mg Tablet PO (08:59)
[2020-03-15] MEDS: multivitamin therapeutic Tablet 1 TAB PO (09:00)
[2020-03-15] MEDS: carvedilol 12.5 mg Tablet PO ×2 (09:00→17:13)
--- NOTE | 2020-03-15 11:34 | XRR_ITS ---
PROCEDURE INFORMATION: Exam: XR Chest, 1 View Exam date and time: 03/15/2020 11:36 AM Age: 80 years old Clinical indication: Shortness of breath; Additional info: SOB TECHNIQUE: Imaging protocol: XR of the chest Views: 1 view. COMPARISON: CR XR chest 1V portable [id number] 03/09/2020 6:03 PM FINDINGS: Lungs: Prominent interstitial markings. There are streaky opacities at the left lung base. Pleural space: Unremarkable. No pleural effusion. No pneumothorax. Heart/Mediastinum: Cardiomegaly, more prominent when compared to the prior study. Bones/joints: There are posterior sternotomy changes and postoperative changes overlying the mediastinum. There are degenerative changes in the thoracic spine and across the acromioclavicular joints. There are degenerative changes across the glenohumeral joints more prominent on the right. XR/XR chest 1V portable [id number] IMPRESSION: 1. There are streaky opacities at the left lung base. Differential includes atelectasis, pneumonia, and scar tissue. 2. The heart is enlarged, more prominent when compared to the prior study. 3. There are prominent interstitial markings. This is a nonspecific finding and can be seen with pulmonary edema, COPD, or fibrosis.
--- NOTE | 2020-03-15 12:05 | PM.PN ---
Subjective Subjective: Interval history: On examination patient lying comfortably in bed. On examination he is on 2 L nasal cannula because started overnight after saturations were dropping down to 89. Has been stable he is comfortable. Complaining of mild throat irritation. Complaining of constipation. Vitals/I&O/Wt Last Vital Signs Temp 97.6 F 03/15/20 11:34 Pulse 86 03/15/20 11:34 Resp 20 H 03/15/20 11:34 BP 128/76 03/15/20 11:34 Pulse Ox 94 03/15/20 11:34 03/14/20 03/15/20 03/15/20 22:59 06:59 14:59 Intake Total 250 / 530 250 / 780 240 / 240 Output Total 75 / 576 100 / 676 Balance 175 / -46 150 / 104 240 / 240 Weight last 48 hrs Weight 80.059 kg Weight 85.049 kg Physical Exam Narrative: EXAM NARRATIVE: General exam is a white male, awake, alert, answering questions appropriately not in acute distress. Neurologic: No obvious focal deficits Skin no rash HEENT: Pupils equally round. Oropharynx clear. Neck is supple no lymphadenopathy or thyromegaly Cardiovascular regular rate and rhythm without murmur, no S3 or S4 Lungs clear no wheezing or crackles Abdomen soft nontender with positive bowel sounds. No obvious organomegaly no obvious hernias Extremities no cyanosis clubbing or edema, cap refill brisk Urinary Catheter Management^: Miranda: Cath Placed During This Visit: yes, but has since been removed by the nurse Reason for Continuing Indwelling Catheter: Not indwelling catheter Urinary Catheter Date of Insertion: 03/09/20 Urinary Catheter Time of Insertion: 19:30 Date Urinary Catheter Removed: 03/12/20 Time Urinary Catheter Discontinued: 12:00 Data : 03/15/20 05:29 03/15/20 05:29 A&P Assessment and plan (1) Gram-positive bacteremia: Status: Acute (2) Leukocytosis: Bacteremia, further plan as below Status: Acute (3) History of lumbar surgery: Status: Chronic (4) Acute renal failure: Resolved. Initially prerenal, improved with IV fluids Continue to monitor postvoid residuals with straight cath as needed, may require Miranda catheter placement if continues to have urinary retention Status: Acute Qualifiers: Acute renal failure type: unspecified Qualified Code(s): N17.9 - Acute kidney failure, unspecified (5) Change in mental status: Status: Acute (6) Elevated troponin: Likely secondary to JUAN on admission No chest pain or shortness of breath reported patient had prior severe three-vessel disease, not having any chest pain or shortness of breath but if any continued cardiac symptoms may require cardiology consultation. Status: Acute (7) Atherosclerotic heart disease of [place] coronary artery without angina pectoris: Status: Acute Qualifiers: [place] vs. transplanted heart: [place] heart Qualified Code(s): I25.10 - Atherosclerotic heart disease of [place] coronary artery without angina pectoris (8) Diastolic heart failure: Status: Acute Qualifiers: Heart failure chronicity: chronic Qualified Code(s): I50.32 - Chronic diastolic (congestive) heart failure (9) History of DVT (deep vein thrombosis): Status: Acute (10) Major depressive disorder, recurrent severe without psychotic features: Status: Acute Additional A&P Information Gram-positive bacteremia: History of CABG, chronic back pain. Patient also had gram-positive bacteremia couple of months ago for which she was treated with linezolid to finish a two-week course. Patient having same bacteremia at present. Last time MELIZA was done which suggestive of mitral valve thickening. As patient has had repeated bacteremia from the same bacteria in 5 months patient will require 6 weeks of IV antibiotics. Patient was discussed with Dr. Heard from cardiology. He would want to do MELIZA as an outpatient if patient persists to have positive blood cultures after completion of IV antibiotic course. Patient requires a PICC line. Discussed with care coordination and no treatment on the floor. Most likely PICC line could be done either Monday or early Monday. Once patient has a PICC line patient can most likely be discharged to SNF. MRSA nares admission was negative. CT spine negative for discitis. Continue vancomycin at renal dose. Change in mental status: Resolved, patient is at baseline mentation Zoloft decreased to 100 mg daily, Seroquel decreased to 50 mg at bedtime, oxycodone spaced out to every 8 hours as needed for severe pain, baclofen spaced out to every 8 hours as needed for severe spasms. Caution with the sedating medications. Diastolic heart failure: Last echo in 2018 shows an EF of 66% with no other WMA with grade 1 diastolic dysfunction, trace AR, trace MR, moderate LVH. Patient looks mildly fluid overloaded today. Requiring 2 L oxygen supplementation. Check procalcitonin, proBNP. IV Lasix 40 mg stat. Followed by 40 mg orally daily. At home patient takes 40 mg twice daily as needed. Check input output charting. CAD: Post CABG: Continue carvedilol at home dose. Hypertension: Blood pressure well maintained right now. Continue home dose of amlodipine, carvedilol. Will add on lisinopril but at lower dose of 10 mg daily. Chronic opiate use: As per the chart patient has a pain management doctor. Oxycodone was decreased last time to 30 mg every 6 hours. Patient was not altered mental status on admission most likely because of JUAN and multiple psych and oxycodone. Decrease further to 10 mg 3 times daily for now. History of DVT: Patient is on Eliquis at home. Patient over to Lovenox inpatient. We will continue same for now. We will put him back on his home dose of Eliquis on discharge. History of COPD. No evidence of exacerbation, wean oxygen to room air with goal oxygen saturation of 90 to 92% Dementia Lumbosacral radiculopathy. Reported abdominal pain: Secondary to constipation, continue with stool softeners and laxatives as needed. As laxatives have not helped we will give him enema today. Generalized weakness and deconditioning secondary to acute illness, recommend [facility] facility placement, will need COVID testing within 48hrs of discharge Disposition planning: [facility] CODE STATUS: Allow natural . This was discussed with contact on date of admission DVT prophylaxis: Lovenox treatment dose Diet: Cardiac diet Attestations Medical Necessity Statement*: Gram-positive bacteremia, altered mental status Time Spent in Patient Care: Greater than 35 minutes (>than 50% of time spent in counselling and/or direct pt care on unit). 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 transplanted heart: [place] heart Diastolic heart failure I50.32 Heart failure chronicity: chronic History of DVT (deep vein thrombosis) Z86.718 Major depressive disorder, recurrent severe without psychotic features F33.2
--- NOTE | 2020-03-15 12:06 | XRR_ITS ---
PROCEDURE INFORMATION: Exam: XR Abdomen, 1 View Exam date and time: 03/15/2020 12:09 PM Age: 80 years old Clinical indication: Constipation TECHNIQUE: Imaging protocol: XR of the abdomen. Views: Frontal supine view of the abdomen. 1 View. COMPARISON: CR XR KUB portable [id number] 03/10/2020 9:21 AM FINDINGS: Gastrointestinal tract: There is gaseous distension of the colon. There are air-filled small bowel loops in the left abdomen with possible mild dilatation. This is not optimally evaluated by radiograph. There is a moderate to large amount of stool in the rectal vault. Intraperitoneal space: Surgical coils overlie the abdomen and pelvis. Vasculature: Calcified plaque is present within multiple vascular structures. Bones/joints: There are degenerative changes in the visualized spine. XR/XR abdomen 1V* [id number] IMPRESSION: 1. There is gaseous distension of the colon and a moderate to large amount of stool in the rectal vault raising concern for fecal impaction. Please correlate clinically. 2. Possible mild dilatation of small bowel loops in the left abdomen. Small bowel obstruction cannot be excluded.
[2020-03-15 13:09] LABS: NT Pro B Type Natriuretic Pept > 70000 pg/mL (0-450)
[2020-03-15] MEDS: FUROsemide 10 mg/mL SDV 4mL 40 MG IVP (13:21)
[2020-03-15] MEDS: acetaminophen 325 mg Tablet 650 MG PO (14:32)
--- NOTE | 2020-03-15 15:41 | P.CONIM_ITS ---
Providers/Reason For Consult Consulting Physican/Specialty*: Tayla Vargas MD/Infectious Disease Reason for Consult*: Recurrent CONS bacteremia Attending Physician: Josias Busby MD Primary Care Provider: MEGGAN Obando History of Present Illness History of Present Illness Anurag Rios is a 80 year old male with history of CAD, hypertension, COPD with chronic bronchitis, diastolic heart failure, DVT, dyslipidemia history of DVT radiculopathy vascular disease dementia and a past surgical history of cervical spinal surgery with C6-C7 laminectomy and fixation L3-L5 S1 decompression who presented to the hospital on March 09 with chief complaints of worsening confusion. Dementia, however was noted to be more confused than at baseline. Also had a temperature of 100.3 at time. He had some cough but otherwise no other URI symptoms. Work-up during hospital stay has been significant for gram-positive cocci bacteremia identified as Staphylococcus hominis from 2 out of 4 bottles and 2 separate sets. Patient previously also had blood cultures positive for coag negative staph, identified as staph hominis and staph capitis. At that time glucose also noted in 2 bottles from 2 sets. In September patient was treated with a 2-week course of linezolid. Source evaluation has thus far included chest x-ray without any gross consolidation or effusion. CT head without evidence of acute intracranial processes. US renal without any signs of hydronephrosis. Lumbar CT w/o contrast without acute processes, degenerative disc changes at all lumbar levels, laminectomies at L5-S1. No spinal hardware identified on any imaging. Bilateral lower extremity duplex from September 2019 with no evidence of DVT. Echocardiogram from September 2019 incl MELIZA with EF 74% no RWMA mild mitral annular calcification. Thickened aortic valve. No other reported hardware. Does not have any pacemakers. Has a history of CABG from which time he has sternotomy wires. No joint pain or swelling. Transthoracic echocardiogram on this current admission shows severely thickened mitral valve and severe mitral annular calcification.. No interval change since September 2019. MELIZA was briefly considered, however per cardiology, recommended to wait until 6 weeks. Review of Systems General: Reports: 10 or more systems reviewed and unremarkable except in HPI and below Const: Denies: fever(s), chills or body aches Eyes: Denies: change in vision, blurry vision or photophobia ENMT: Reports: hoarseness; Denies: throat pain, enlarged tonsils, odynophagia or nasal congestion Card: Denies: chest pain, palpitations, irregular heart rhythm, edema, swelling of feet/ankles, lightheadedness, pre-syncope, dyspnea on exertion or orthopnea Resp: Denies: dyspnea, productive cough, non-productive cough, wheezing, stridor, pain on inspiration, change in phlegm color, hemoptysis or chest c ongestion GI: Denies: abdominal pain, nausea, vomiting, hematemesis, coffee ground emesis, dysphagia, heartburn, diarrhea, constipation, GI cramping, change in stool character, hematochezia or melena : Denies: flank pain, dysuria, urinary frequency, urinary urgency, urinary hesitancy or hematuria Musc: Denies: neck pain, back pain, extremity pain, joint swelling, joint warmth or deformity Neuro: Denies: headache(s), numbness in extremities, weakness in extremities, sensory changes, difficulty walking, frequent falls, dizziness, vertigo, behavioral changes, Slurred speech present or seizure-like activity Psych: Denies: anxiety, depression, suicidal ideation or homicidal ideation Endo: Denies: polyuria, polydipsia, tired all the time, cold intolerance or hot flashes Jm/Lymph: Denies: easy bruising or easy bleeding All/Imm: Denies: acute wheezing Meds/Allergies Home Medications and Allergies Home Medications Medication Instructions Recorded Confirmed Last Taken Type apixaban 5 mg tablet 5 mg PO BID 08/05/19 03/09/20 Unknown History baclofen 20 mg tablet 20 mg PO TID PRN 08/05/19 03/09/20 03/08/20 History oxycodone 30 mg tablet See Rx Instructions .ROUTE 08/05/19 03/09/20 03/09/20 History .COMPLEX tab multivitamin [Multiple Vitamins] 1 tab PO DAILY 09/25/19 03/09/20 Unknown History furosemide [Lasix] 40 mg PO BID PRN #0 tab 09/30/19 03/09/20 03/09/20 Rx polyethylene glycol 3350 [Miralax] 17 g PO BID #60 ea 09/30/19 03/09/20 Unknown Rx lisinopril 20 mg tablet 20 mg PO DAILY #90 tab 10/22/19 03/09/20 03/08/20 Rx albuterol sulfate 90 mcg/actuation 2 puff INHALATION QID PRN #8.5 gm 10/26/19 03/09/20 03/06/20 Rx aerosol inhaler carvedilol 12.5 mg tablet 12.5 mg PO BID #60 tab 11/14/19 03/09/20 03/08/20 Rx quetiapine 100 mg tablet 100 mg PO BEDTIME #30 tab 12/09/19 03/09/20 03/07/20 Rx sertraline 100 mg tablet 200 mg PO DAILY #60 tab 12/09/19 03/09/20 Unknown Rx trazodone 100 mg tablet 300 mg PO BEDTIME PRN #90 tab 12/09/19 03/09/20 03/08/20 Rx ostomy supplies #60 gm 12/10/19 03/09/20 Unknown Rx lubiprostone 24 mcg capsule 24 mcg PO BID 30 Days #60 cap 01/13/20 03/09/20 Unknown Rx amlodipine 10 mg tablet 10 mg PO DAILY #90 tab 01/20/20 03/09/20 03/08/20 Rx nitroglycerin 0.4 mg sublingual 0.4 mg SUBLINGUAL Q5M PRN #100 tab 01/20/20 03/09/20 03/07/20 Rx tablet Allergies Allergy/AdvReac Type Severity Reaction Status Date / Time hydromorphone Allergy Mild hives Verified 03/09/20 19:03 Current Medications Current Medications Generic Name Dose Route Start Last Admin Trade Name Freq PRN Reason Stop Dose Admin Acetaminophen 650 mg 03/09/20 20:46 03/15/20 14:32 Tylenol PO 650 mg Q6H PRN Administration Mild/Mod Pain Or Temp >/= 101 Albuterol Sulfate 2 puff 03/09/20 21:46 03/15/20 14:45 Ventolin INHALATION 2 puff QID PRN Administration Shortness Of Breath Amlodipine Besylate 5 mg 03/10/20 09:00 03/15/20 08:59 Norvasc PO 5 mg DAILY CHRIS Administration Baclofen 10 mg 03/10/20 08:49 03/14/20 17:54 Lioresal PO 10 mg Q8H PRN Administration spasms Carvedilol 12.5 mg 03/10/20 09:00 03/15/20 09:00 Coreg PO 12.5 mg BID CHRIS Administration Docusate Sodium 100 mg 03/10/20 11:10 03/15/20 08:59 Colace PO 100 mg BID CHRIS Administration Enoxaparin Sodium 90 mg 03/12/20 12:00 03/15/20 13:19 Lovenox 1 mg/kg (90 mg) 90 mg SUBCUT Administration Q12H CHRIS Vancomycin HCl 1,250 mg/ 250 mls @ 250 mls/hr 03/12/20 03:00 03/15/20 15:07 Sodium Chloride IV 250 mls/hr Q12H CHRIS Administration Lisinopril 10 mg 03/14/20 09:00 03/15/20 08:59 Prinivil PO 10 mg DAILY CHRIS Administration Multivitamins Therapeutic 1 tab 03/11/20 09:00 03/15/20 09:00 Multivitamin Tab PO 1 tab DAILY CHRIS Administration Ondansetron HCl 4 mg 03/09/20 20:46 03/12/20 09:51 Zofran IVP 4 mg Q6H PRN Administration vomiting, or N/V if npo Oxycodone HCl 10 mg 03/11/20 04:00 03/15/20 08:59 Oxycodone Ir PO 10 mg Q8H PRN Administration SEVERE PAIN Polyethylene Glycol 17 gm 03/10/20 11:10 03/15/20 08:59 Miralax PO 17 gm DAILY CHRIS Administration Potassium Chloride 40 meq 03/10/20 16:15 03/15/20 09:00 Potassium Chloride Oral Liquid PO Not Given DAILY CHRIS Quetiapine Fumarate 50 mg 03/10/20 21:00 03/14/20 22:44 Seroquel PO 50 mg BEDTIME CHRIS Administration Sertraline HCl 100 mg 03/10/20 09:00 03/15/20 08:59 Zoloft PO 100 mg DAILY CHRIS Administration Trazodone HCl 100 mg 03/13/20 20:39 03/13/20 20:59 Desyrel PO 100 mg BEDTIME PRN Administration INSOMNIA PFSH Acute PFSH: Medical History Atherosclerotic heart disease of [place] coronary artery without angina pectoris Benign essential hypertension with target blood pressure below 140/90 CAD (coronary artery disease) Chronic constipation Chronic prescription opiate use COPD (chronic obstructive pulmonary disease) with chronic bronchitis Diastolic heart failure DVT (deep venous thrombosis) Dyslipidemia Generalized anxiety disorder 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 C6-C7 laminectomy/fusion/fixation History of heart artery stent (~2006) History of heart bypass surgery (~2007) History of hernia surgery 4x History of knee surgery Right History of lumbar surgery [facility]. L3-L4, L4-L5, L5-S1 decompression History of uvulopalatopharyngoplasty Hx of CABG Hx of cholecystectomy Family History Father Diabetes Mother Colon cancer Hypertension Social History Smoking and tobacco status: former smoker Alcohol intake: never Household members: significant other Marital status: Current occupational status: disabled History of recent travel: No Dietary Habits: Current diet type/program: regular Exercise: What type of physical activity do you participate in?: walking Safety: Seatbelt use: always Helmet use: No Drive intoxicated or ride with intoxicated scoop driver?: never Vitals/I&O/Wt Last Vital Signs Temp 96.5 F L 03/15/20 15:25 Pulse 82 03/15/20 15:25 Resp 26 H 03/15/20 15:25 BP 145/88 03/15/20 15:25 Pulse Ox 94 03/15/20 15:25 03/15/20 03/15/20 03/15/20 06:59 14:59 22:59 Intake Total 250 / 780 890 / 890 Output Total 100 / 676 451 / 451 Balance 150 / 104 439 / 439 Weight last 48 hrs Weight 80.059 kg Weight 85.049 kg Physical Exam Narrative: EXAM NARRATIVE: General exam is a white male, awake, alert, answering questions appropriately not in acute distress. Neurologic: No obvious focal deficits Skin no rash HEENT: Pupils equally round. Oropharynx clear. Neck is supple no lymphadenopathy or thyromegaly Cardiovascular regular rate and rhythm without murmur, no S3 or S4 Lungs clear no wheezing or crackles Abdomen soft nontender with positive bowel sounds. No obvious organomegaly no obvious hernias Extremities no cyanosis clubbing or edema, cap refill brisk Urinary Catheter Management^: Miranda: Cath Placed During This Visit: yes, but has since been removed by the nurse Reason for Continuing Indwelling Catheter: Not indwelling catheter Urinary Catheter Date of Insertion: 03/09/20 Urinary Catheter Time of Insertion: 19:30 Date Urinary Catheter Removed: 03/12/20 Time Urinary Catheter Discontinued: 12:00 Data Micro: Micro: Microbiology 03/09/20 17:50 Blood Culture - Fi nal Blood Staphylococcus hominis 03/09/20 17:55 Blood Culture - Fi nal Blood Staphylococcus hominis A&P Assessment and plan (1) Change in mental status: Status: Acute (2) Acute renal failure: Status: Acute Qualifiers: Acute renal failure type: unspecified Qualified Code(s): N17.9 - Acute kidney failure, unspecified (3) Acute on chronic congestive heart failure: Status: Acute Qualifiers: Heart failure type: diastolic Qualified Code(s): I50.33 - Acute on chronic diastolic (congestive) heart failure (4) Elevated troponin: Status: Acute (5) Lumbar disc disease: Status: Acute (6) History of DVT (deep vein thrombosis): Status: Acute (7) COPD (chronic obstructive pulmonary disease) with chronic bronchitis: Status: Chronic (8) Gram-positive bacteremia: Status: Acute (9) Intervertebral disc disorder with radiculopathy of lumbosacral region: Status: Chronic Additional A&P Information 80 year old male with [facility] as outlined above presenting with sepsis, upon evalution found to have 2/4 bottles + for staph hominis bacteremia. Source evaluation thus far has included negative CXR, US abdomen, CT lumbar without evidence of discitis, TTE without vegetations, recent CTA chest without any underlying abscesses. While in itself, isolated bacteremia that quickly cleared would require ~2weeks of directed therapy. given patient had coagulase negative staph bacteremia, identified as staph hominis treated with po abx, would be reasonable to try a longer duration of rx of 4-6 weeks for presumed endovascula infection. Of note, no obvious source was identified on previous admission from September either. Based on susceptibility data of current isolate and earlier ones from September, would choose iv Vancomycin for treatment. Recommend total duration to be 4-6 weeks with weekly labs including CMP and vancomycin trough checks. 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
[2020-03-15] MEDS: trazodone 100 mg Tablet PO (20:51)
[2020-03-15] MEDS: quetiapine 100 mg Tablet 50 MG PO (20:51)
[2020-03-16] VITALS (13 sets, daily range): BP systolic 130–147; BP diastolic 73–87; PULSE 72–81; RESP 16–20; TEMP 36.5–36.7; O2SAT 94–98
[2020-03-16] MEDS: enoxaparin 100 mg/mL Syringe 90 MG SUBCUT ×3 (00:35→23:14)
[2020-03-16] MEDS: albuterol 8 gm MDI 2 PUFF INHALATION ×3 (02:35→13:58)
[2020-03-16 04:28] LABS: Basophils % 0.3 %; Eosinophils # 0.3 10^3/uL (0.0-0.8); Eosinophils % 2.5 %; Hematocrit 34.9 % (42.0-52.0); Hemoglobin 11.1 g/dL (11.7-16.6); Lymphocytes # 1.7 10^3/uL (0.8-4.8); Mean Corpuscular HGB Conc 31.8 g/dL (30.0-36.0); Mean Corpuscular Hemoglobin 27.7 pg (28.0-34.0); Monocytes # 0.9 10^3/uL (0.2-0.9); Neutrophils # 8.12 10^3/uL (1.8-7.7); Neutrophils % 73.8 %; Nucleated Red Blood Cells % 0 %; Platelet Count 221 10^3/cmm (130-400); Red Blood Count 4.01 10^6/uL (4.1-5.3)
[2020-03-16 04:51] LABS: Alanine Aminotransferase 14 U/L (0-41); Albumin Level 3.1 g/dL (3.5-5.2); Alkaline Phosphatase 71 IU/L (40-130); Aspartate Amino Transferase 18 U/L (0-40); Blood Urea Nitrogen 14 mg/dL (8-23); Calcium 8.8 mg/dL (8.5-10.5); Carbon Dioxide 26 mmol/L (22-29); Chloride 104 mmol/L (98-107); Globulin 3.5 g/dL (1.3-4.6); Glucose 114 mg/dL (65-115); Osmolality Calculated 281 mOsm/kg (285-295); Sodium 137 mmol/L (136-145); Total Bilirubin 0.4 mg/dL (0.15-1.2); Total Protein 6.6 g/dL (6.6-8.7)
[2020-03-16] MEDS: oxyCODONE 5 mg IR Tab/Cap 10 MG PO ×2 (06:06→18:29)
[2020-03-16] MEDS: baclofen 10 mg Tablet PO (06:06)
[2020-03-16 06:22] LABS: Coronavirus Lab Test PTC Negative
--- NOTE | 2020-03-16 06:39 | USCV_ITS ---
Anurag Rios Age: 80 Gender: M : 1940 Exam Date: 03/16/2020 07:55 Ordering Phys: Josias Busby MD Technologist: Silvio Buckley Exam Location: [facility] [place] Indication: DIMINISHED PULSES Risk Factors: Unknown Previous Vascular Surgery: None RIGHT LEFT BP: 140.0 / 82.00 BP: 140.0/ 82.00 0 0 Waveform Velocity (cm/s) Velocity (cm/s) Waveform Biphasic 51.1 Iliac Prox 60.1 Biphasic Biphasic Iliac Mid Biphasic 58.0 65.1 Biphasic 61.5 Iliac Distal 70.0 Biphasic Biphasic 66.2 MUCK MINER 75.8 Biphasic Biphasic 59.8 SFA Prox 67.6 Biphasic Biphasic 90.4 SFA Mid 73.3 Biphasic Biphasic 85.5 SFA Dist 75.0 Monophasic Biphasic 45.3 POP 45.3 Biphasic Biphasic 54.6 LINE SERVER 62.6 Biphasic Biphasic DPA 54.4 Biphasic 1.0 RYAN 1.1 FINDINGS Mild to moderate diffuse plaques iliac and femoral arteries bilaterally. Abnormal Doppler waveforms bilaterally. Normal resting ABIs bilaterally. CONCLUSIONS Mild to moderate diffuse plaques iliac and femoral arteries bilaterally. No significant obstructive arterial disease bilaterally, based on the above findings Dr Velvet Park MD [facility] (Electronically Signed) Final Date: 17 March 2020 16:00 S
[2020-03-16] MEDS: acetaminophen 325 mg Tablet 650 MG PO (08:12)
[2020-03-16] MEDS: amlodipine 5 mg Tablet PO (08:12)
[2020-03-16] MEDS: FUROsemide 40 mg Tablet PO (08:12)
[2020-03-16] MEDS: carvedilol 12.5 mg Tablet PO ×2 (08:12→17:43)
[2020-03-16] MEDS: lisinopril 10 mg Tablet PO (08:12)
[2020-03-16] MEDS: potassium chloride oral liq 20 mEq/15 mL UDC 40 MEQ PO (08:13)
[2020-03-16] MEDS: multivitamin therapeutic Tablet 1 TAB PO (08:13)
[2020-03-16] MEDS: docusate sodium 100 mg Capsule PO ×2 (08:13→17:43)
[2020-03-16] MEDS: sertraline 100 mg Tablet PO (08:13)
[2020-03-16] MEDS: polyethylene glycol 3350 Pkt 17 gm PO (08:19)
[2020-03-16] MEDS: lactulose oral liq 20 gm/30 mL UDC 10 GM PO (09:42)
--- NOTE | 2020-03-16 09:58 | DCPLANNER ---
Pg 2 of IM updated and reviewed with pt. No questions, copy provided.
--- NOTE | 2020-03-16 10:42 | XRR_ITS ---
PROCEDURE INFORMATION: Exam: XR Chest, 1 View Exam date and time: 03/16/2020 10:46 AM Age: 80 years old Clinical indication: Cough and dyspnea; Prior surgery; Surgery date: 6+ months; Surgery type: Patient stated heart; Additional info: Crackles in lungs TECHNIQUE: Imaging protocol: XR of the chest Views: 1 view. COMPARISON: CR (CHEST, ) 03/15/2020 1:25 PM FINDINGS: Lungs: Nonspecific interstitial thickening consistent with fibrosis. No consolidation. Pleural space: Unremarkable. No pleural effusion. No pneumothorax. Heart/Mediastinum: CABG. No cardiomegaly. Bones/joints: No acute findings. Sternotomy. XR/XR chest 1V portable [id number] IMPRESSION: No acute findings.
--- NOTE | 2020-03-16 13:51 | P.PN_ITS ---
Subjective Subjective: Interval history: This morning patient was examined, he has no particular complaints, no fevers, no chills, no nausea, no vomiting, he is up to 3 L nasal cannula, does not use oxygen at home, was given Lasix yesterday, with minimal improvement, he has no particular shortness of breath complaints, no cough, no fevers Vitals/I&O/Wt Last Vital Signs Temp 98.1 F 03/16/20 11:30 Pulse 72 03/16/20 11:30 Resp 18 03/16/20 11:30 BP 130/78 03/16/20 11:30 Pulse Ox 97 03/16/20 11:30 03/15/20 03/16/20 03/16/20 22:59 06:59 14:59 Intake Total 370 / 1260 200 / 1460 480 / 480 Output Total 325 / 776 250 / 1026 300 / 300 Balance 45 / 484 -50 / 434 180 / 180 Weight last 48 hrs Weight 89.993 kg Weight 80.059 kg Physical Exam Const: COMMON NORMALS: no acute distress and alert ORIENTATION/C ONSCIOUSNESS: Yes oriented to person and Yes oriented to place; not oriented to time HENMT: COMMON NORMALS: normocephalic HEAD & SCALP: normocephalic Neck/C-Spine: COMMON NORMALS: no JVD Resp: COMMON NORMALS: normal respiratory effort, No retractions and No use of accessory muscles AUSCULTATION: crackles Cardio: COMMON NORMALS: no JVD, regular rate, regular rhythm, S1 normal heart sound present and S2 normal heart sound present RATE: regular rate RHYTHM: regular rhythm HEART SOUNDS: S1 normal heart sound present and S2 normal heart sound present GI: COMMON NORMALS: Normal to inspection, nondistended, normoactive bowel sounds present, Soft to palpation, non-tender, No hepatosplenomegaly present, no masses and no bruits PALPATION: Yes Soft to palpation and Yes No hepatosplenomegaly present Extremity: COMMON NORMALS: capillary refill normal, no clubbing, cyanosis or edema, no calf tenderness and no pedal edema Neuro: SENSORIUM/ORIENTATION: Yes alert, Yes oriented to person, Yes oriented to place and No oriented to time Psych: COMMON NORMALS: mental status grossly normal Urinary Catheter Management^: Miranda: Cath Placed During This Visit: yes, but has since been removed by the nurse Reason for Continuing Indwelling Catheter: Not indwelling catheter Urinary Catheter Date of Insertion: 03/09/20 Urinary Catheter Time of Insertion: 19:30 Date Urinary Catheter Removed: 03/12/20 Time Urinary Catheter Discontinued: 12:00 Data : 03/16/20 03:50 03/16/20 03:50 Micro: Microbiology 03/10/20 18:15 Blood Culture - Final Blood NO GROWTH AFTER 5 DAYS 03/10/20 18:12 Blood Culture - Final Blood NO GROWTH AFTER 5 DAYS 03/09/20 17:50 Blood Culture - Final Blood Staphylococcus hominis 03/09/20 17:55 Blood Culture - Final Blood Staphylococcus hominis A&P Assessment and plan (1) Hypoxia: Status: Acute (2) Gram-positive bacteremia: Status: Acute (3) Leukocytosis: Bacteremia, further plan as below Status: Acute (4) History of lumbar surgery: Status: Chronic (5) Acute renal failure: Resolved. Initially prerenal, improved with IV fluids Continue to monitor postvoid residuals with straight cath as needed, may require Miranda catheter placement if continues to have urinary retention Status: Acute Qualifiers: Acute renal failure type: unspecified Qualified Code(s): N17.9 - Acute kidney failure, unspecified (6) Change in mental status: Status: Acute (7) Elevated troponin: Likely secondary to JUAN on admission No chest pain or shortness of breath reported patient had prior severe three-vessel disease, not having any chest pain or shortness of breath but if any continued cardiac symptoms may require cardiology consultation. Status: Acute (8) Atherosclerotic heart disease of [place] coronary artery without angina pectoris: Status: Acute Qualifiers: [place] vs. transplanted heart: [place] heart Qualified Code(s): I25.10 - Atherosclerotic heart disease of [place] coronary artery without angina pectoris (9) Diastolic heart failure: Status: Acute Qualifiers: Heart failure chronicity: chronic Qualified Code(s): I50.32 - Chronic diastolic (congestive) heart failure (10) History of DVT (deep vein thrombosis): Status: Acute (11) Major depressive disorder, recurrent severe without psychotic features: Status: Acute Additional A&P Information Gram-positive bacteremia: History of CABG, chronic back pain. Patient also had gram-positive bacteremia couple of months ago for which she was treated with linezolid to finish a two-week course. Patient having same bacteremia at present. Last time MELIZA was done which suggestive of mitral valve thickening. As patient has had repeated bacteremia from the same bacteria in 5 months patient will require 6 weeks of IV antibiotics. Patient was discussed with Dr. Heard from cardiology. He would want to do MELIZA as an outpatient if patient persists to have positive blood cultures after completion of IV antibiotic course. Patient requires a PICC line. PICC line to be placed tomorrow, with IV antibiotics, discharge to [facility] MRSA nares admission was negative. CT spine negative for discitis. Continue vancomycin at renal dose. Change in mental status: Resolved, patient is at baseline mentation Zoloft decreased to 100 mg daily, Seroquel decreased to 50 mg at bedtime, oxycodone spaced out to every 8 hours as needed for severe pain, baclofen spaced out to every 8 hours as needed for severe spasms. Caution with the sedating medications. Diastolic heart failure: Last echo in 2018 shows an EF of 66% with no other WMA with grade 1 diastolic dysfunction, trace AR, trace MR, moderate LVH. BNP is over 70,000, Crackles on exam, minimal pitting edema, requiring 3 L oxygen supplementation, chest x-ray shows mild probably vascular congestion, no focal pneumonia, pro-Adam within normal limits, +2 L since admission Check procalcitonin, proBNP. Continue Lasix 40 mg p.o. daily Monitor I's and O's CAD: Post CABG: Continue carvedilol at home dose. Hypertension: Blood pressure well maintained right now. Continue home dose of amlodipine, carvedilol. Will add on lisinopril but at low er dose of 10 mg daily. Chronic opiate use: As per the chart patient has a pain management doctor. Oxycodone was decreased last time to 30 mg every 6 hours. Patient was not altered mental status on admission most likely because of JUAN and multiple psych and oxycodone. Decrease further to 10 mg 3 times daily for now. History of DVT: Patient is on Eliquis at home. Patient over to Lovenox inpatient. We will continue same for now. We will put him back on his home dose of Eliquis on discharge. History of COPD. Has increased oxygen requirements, will start on prednisone 40 mg daily Dementia Lumbosacral radiculopathy. Reported abdominal pain: Secondary to constipation, continue with stool softeners and laxatives as needed. Continue MiraLAX, Colace, add lactulose Generalized weakness and deconditioning secondary to acute illness, recommend alf facility placement, will need COVID testing within 48hrs of discharge Disposition planning: [facility] CODE STATUS: Allow natural . This was discussed with contact on date of admission DVT prophylaxis: Lovenox treatment dose Diet: Cardiac diet Attestations Medical Necessity Statement*: Patient requires hospitalization, for gram- positive bacteremia, requiring IV antibiotics Coding Level of Care Code Acute Cloud Security Architect for g Fwd Diagnoses Hypoxia R09.02 Gram-positive bacteremia R78.81 Leukocytosis D72.829 History of lumbar surgery Z98.890 Acute renal failure N17.9 Acute renal failure type: unspecified Change in mental status R41.82 Elevated troponin R79.89 Atherosclerotic heart disease of [place] coronary artery without angina pectoris I25.10 [place] vs. transplanted heart: [place] heart Diastolic heart failure I50.32 Heart failure chronicity: chronic History of DVT (deep vein thrombosis) Z86.718 Major depressive disorder, recurrent severe without psychotic features F33.2
[2020-03-16] MEDS: predniSONE 20 mg Tablet 40 MG PO (14:36)
[2020-03-16 14:58] LABS: Vancomycin Trough 40.7 ug/mL (10-15)
--- NOTE | 2020-03-16 15:05 | PC.NURSE ---
Vanc trough was drawn at 1400 due to creatinine being 1.5 this am. Lab called to report to this nurse that trough was 40.7. Lab was called and Vanc held. Physician notified. Will continue to monitor.
--- NOTE | 2020-03-16 16:04 | PC.NURSE ---
Pt resting comfortably. pt had a complete bed bath today. Fluid restriction sign at door. Pt requesting to move to a chair. Available to assist pt to chair with physical therapy. Patient declined stating he needed to rest .
[2020-03-16] MEDS: trazodone 100 mg Tablet PO (20:46)
[2020-03-16] MEDS: quetiapine 100 mg Tablet 50 MG PO (20:46)
--- NOTE | 2020-03-16 22:32 | P.PN_ITS ---
Subjective Subjective: Interval history: C/o some shrtness of breath and wheezing this morning. Afberile. hemodynamically stable . Medications: Reviewed: Yes Vitals/I&O/Wt Last Vital Signs Temp 97.8 F 03/17/20 20:00 Pulse 80 03/17/20 20:20 Resp 18 03/17/20 20:19 BP 132/74 03/17/20 20:00 Pulse Ox 98 03/17/20 20:19 03/17/20 03/17/20 03/17/20 06:59 14:59 22:59 Intake Total 240 / 780 480 / 480 180 / 660 Output Total 200 / 915 360 / 360 400 / 760 Balance 40 / -135 120 / 120 -220 / -100 Weight last 48 hrs Weight 87.231 kg Weight 89.993 kg Physical Exam Narrative: EXAM NARRATIVE: General exam is a white male, awake, alert, answering questions appropriately not in acute distress. Neurologic: No obvious focal deficits Skin no rash HEENT: Pupils equally round. Oropharynx clear. Neck is supple no lymphadenopathy or thyromegaly Cardiovascular regular rate and rhythm without murmur, no S3 or S4 Lungs clear no wheezing or crackles Abdomen soft nontender with positive bowel sounds. No obvious organomegaly no obvious hernias Extremities no cyanosis clubbing or edema, cap refill brisk Urinary Catheter Management^: Miranda: Cath Placed During This Visit: yes, but has since been removed by the nurse Reason for Continuing Indwelling Catheter: Not indwelling catheter Urinary Catheter Date of Insertion: 03/09/20 Urinary Catheter Time of Insertion: 19:30 Date Urinary Catheter Removed: 03/12/20 Time Urinary Catheter Discontinued: 12:00 Data : 03/17/20 04:40 03/17/20 04:40 A&P Assessment and plan (1) Change in mental status: Status: Acute (2) Acute renal failure: Status: Acute Qualifiers: Acute renal failure type: unspecified Qualified Code(s): N17.9 - Acute kidney failure, unspecified (3) Acute on chronic congestive heart failure: Status: Acute Qualifiers: Heart failure type: diastolic Qualified Code(s): I50.33 - Acute on c hronic diastolic (congestive) heart failure (4) Elevated troponin: Status: Acute (5) Lumbar disc disease: Status: Acute (6) History of DVT (deep vein thrombosis): Status: Acute (7) COPD (chronic obstructive pulmonary disease) with chronic bronchitis: Status: Chronic (8) Gram-positive bacteremia: Status: Acute (9) Intervertebral disc disorder with radiculopathy of lumbosacral region: Status: Chronic Additional A&P Information 80 year old male admitted with sepsis, upon evalution found to have 2/4 bottles + for staph hominis bacteremia. Source evaluation thus far has included negative CXR, US abdomen, CT lumbar without evidence of discitis, TTE without vegetations, recent CTA chest without any underlying abscesses. He has no spinal hardware but has a h/o multiple laminectomies in the past. He is being considered for placement of a spinal cord stimulator per review of last neurosurgery notes. While in itself, isolated bacteremia that quickly cleared would require ~2weeks of directed therapy, given this is his second episode of CONS bacteremia in the last 6 months without another identifiable source , would be reasonable to try a longer duration of rx of 4-6 weeks for presumed endovascular infection. Of note, no obvious source was identified on previous admission from September either. Based on susceptibility data of current isolate and earlier ones from September, would choose iv Vancomycin for treatment. Recommend total duration to be 4-6 weeks with weekly labs including CMP and vancomycin trough checks. Management of other medical comorbidities per primary/admitting team Attestations Medical Necessity Statement*: Please see admitting team's note Coding Level of Care Code Acute Suction Dredge Dumping Supervisor for Josephineg Fwd Diagnoses Change in mental status R41.82 Acute renal failure N17.9 Acute renal failure type: unspecified Acute on chronic congestive heart failure I50.33 Heart failure type: diastolic Elevated troponin R79.89 Lumbar disc disease M51.9 History of DVT (deep vein thrombosis) Z86.718 COPD (chronic obstructive pulmonary disease) with chronic bronchitis J44.9 Gram-positive bacteremia R78.81 Intervertebral disc disorder with radiculopathy of lumbosacral region M51.17
[2020-03-17] VITALS (12 sets, daily range): BP systolic 121–144; BP diastolic 64–88; PULSE 65–84; RESP 16–18; TEMP 36.4–36.9; O2SAT 90–98
[2020-03-17 05:06] LABS: Basophils % 0.1 %; Eosinophils % 0.3 %; Hematocrit 31.8 % (42.0-52.0); Hemoglobin 10.1 g/dL (11.7-16.6); Lymphocytes # 1.4 10^3/uL (0.8-4.8); Lymphocytes % 16.9 %; Mean Corpuscular HGB Conc 31.8 g/dL (30.0-36.0); Mean Corpuscular Hemoglobin 27.7 pg (28.0-34.0); Mean Corpuscular Volume 87.1 fL (80-94); Mean Platelet Volume 10.9 fL (7.4-10.4); Monocytes # 0.9 10^3/uL (0.2-0.9); Monocytes % 10.8 %; Neutrophils # 5.74 10^3/uL (1.8-7.7); Neutrophils % 71.6 %; Nucleated Red Blood Cells % 0 %; Platelet Count 229 10^3/cmm (130-400); Red Blood Count 3.65 10^6/uL (4.1-5.3); Red Cell Distribution Width 15.2 % (12.1-15.1)
[2020-03-17 05:36] LABS: Alanine Aminotransferase 12 U/L (0-41); Alkaline Phosphatase 61 IU/L (40-130); Anion Gap 12.9 (5-19); Aspartate Amino Transferase 14 U/L (0-40); Blood Urea Nitrogen 15 mg/dL (8-23); Calcium 8.7 mg/dL (8.5-10.5); Carbon Dioxide 24 mmol/L (22-29); Chloride 107 mmol/L (98-107); Glucose 104 mg/dL (65-115); Magnesium 1.7 mg/dL (1.7-2.3); Osmolality Calculated 287 mOsm/kg (285-295); Phosphorus 2.8 mg/dL (2.5-4.5); Potassium 3.9 mmol/L (3.5-5.1); Sodium 140 mmol/L (136-145); Total Bilirubin 0.3 mg/dL (0.15-1.2)
[2020-03-17] MEDS: oxyCODONE 5 mg IR Tab/Cap 10 MG PO (05:50)
--- NOTE | 2020-03-17 06:06 | PC.NURSE ---
Shift Summary Pt slept well tonight after receiving his night time medicines, Pt alert and oriented for all neuro checks. pt has active ROM. this AM pt c/o of generalized pain and oral pain medicine was given. pt did well so far with fluid restriction but will likely need more education with this, given he requests for ice cream frequently.
--- NOTE | 2020-03-17 07:00 | XR_ITS ---
WS: [id number] CHEST XRAY TECHNIQUE: Portable chest. CLINICAL INFORMATION: sob COMPARISON: March 16, 2020 FINDINGS: Heart: Cardiomegaly. Sternotomy. Lungs: Chronic emphysematous changes. No acute pulmonary infiltrates. No focal pneumonia. Bones: Normal visualized bony structures. XR/XR chest 1V portable [id number] IMPRESSION: No acute chest findings
[2020-03-17] MEDS: predniSONE 20 mg Tablet 40 MG PO (08:17)
[2020-03-17] MEDS: potassium chloride oral liq 20 mEq/15 mL UDC 40 MEQ PO (08:17)
[2020-03-17] MEDS: amlodipine 5 mg Tablet PO (08:17)
[2020-03-17] MEDS: multivitamin therapeutic Tablet 1 TAB PO (08:17)
[2020-03-17] MEDS: docusate sodium 100 mg Capsule PO ×2 (08:17→18:05)
[2020-03-17] MEDS: polyethylene glycol 3350 Pkt 17 gm PO (08:17)
[2020-03-17] MEDS: lactulose oral liq 20 gm/30 mL UDC 10 GM PO (08:17)
[2020-03-17] MEDS: sertraline 100 mg Tablet PO (08:18)
[2020-03-17] MEDS: FUROsemide 40 mg Tablet PO (08:18)
[2020-03-17] MEDS: carvedilol 12.5 mg Tablet PO ×2 (08:18→18:05)
[2020-03-17] MEDS: acetaminophen 325 mg Tablet 650 MG PO (08:23)
--- NOTE | 2020-03-17 08:34 | XR_ITS ---
WS: [id number] CHEST XRAY TECHNIQUE: Portable chest. CLINICAL INFORMATION: Picc line verification. COMPARISON: March 17, 2020 FINDINGS: Left PICC line with tip in the mid SVC. Heart: Sternotomy. Mild cardiomegaly. Lungs: Chronic emphysematous changes. No focal pneumonia. Bones: Normal visualized bony structures. XR/XR chest 1V portable [id number] IMPRESSION: 1. Left PICC line with tip in the mid SVC. No pneumothorax.
--- NOTE | 2020-03-17 09:03 | PC.RESP ---
Pt having picc line placed-unable to assess or give pt medications at this time.
[2020-03-17] MEDS: FUROsemide 10 mg/mL SDV 4mL 40 MG IVP (10:35)
[2020-03-17] MEDS: potassium chloride ER 10 mEq Tablet 40 MEQ PO (10:35)
[2020-03-17 11:12] LABS: SARS Covid-2 Antigen Negative (Negative)
[2020-03-17] MEDS: enoxaparin 100 mg/mL Syringe 90 MG SUBCUT (12:16)
[2020-03-17 15:44] LABS: Vancomycin Random 32.5 ug/mL (20.0-40.0)
[2020-03-17] MEDS: ondansetron 2 mg/ML SDV 2 mL 4 MG IVP (15:49)
--- NOTE | 2020-03-17 17:55 | PM.PN ---
Subjective Subjective: Interval history: This morning patient was examined, he complains of shortness of breath, cough, wheezing, states that he feels weak, no chest pain, no lightheadedness, dizziness, no fevers Vitals/I&O/Wt Last Vital Signs Temp 98.1 F 03/17/20 16:00 Pulse 80 03/17/20 16:00 Resp 16 03/17/20 16:00 BP 144/88 03/17/20 16:00 Pulse Ox 90 03/17/20 16:00 03/17/20 03/17/20 03/17/20 06:59 14:59 22:59 Intake Total 240 / 780 480 / 480 Output Total 200 / 915 360 / 360 Balance 40 / -135 120 / 120 Weight last 48 hrs Weight 87.231 kg Weight 89.993 kg Physical Exam Const: COMMON NORMALS: no acute distress HENMT: COMMON NORMALS: normocephalic HEAD & SCALP: normocephalic Neck/C-Spine: COMMON NORMALS: no JVD Resp: COMMON NORMALS: normal respiratory effort, No retractions and No use of accessory muscles AUSCULTATION: crackles, rales and rhonchi Cardio: COMMON NORMALS: no JVD, regular rate, regular rhythm, S1 normal heart sound present and S2 normal heart sound present RATE: regular rate RHYTHM: regular rhythm HEART SOUNDS: S1 normal heart sound present and S2 normal heart sound present GI: COMMON NORMALS: Normal to inspection, nondistended, normoactive bowel sounds present, Soft to palpation, non-tender, No hepatosplenomegaly present, no masses and no bruits PALPATION: Yes Soft to palpation and Yes No hepatosplenomegaly present Extremity: COMMON NORMALS: capillary refill normal, no clubbing, cyanosis or edema, no calf tenderness and no pedal edema Psych: COMMON NORMALS: mental status grossly normal Urinary Catheter Management^: Miranda: Cath Placed During This Visit: yes, but has since been removed by the nurse Reason for Continuing Indwelling Catheter: Not indwelling catheter Urinary Catheter Date of Insertion: 03/09/20 Urinary Catheter Time of Insertion: 19:30 Date Urinary Catheter Removed: 03/12/20 Time Urinary Catheter Discontinued: 12:00 Data : 03/17/20 04:40 03/17/20 04:40 A&P Assessment and plan (1) Hypoxia: -Likely secondary to fluid overload, CHF -This morning complaining shortness of , crackles on exam -Chest x-ray this morning shows no focal pneumonia -Patient given 80 mg of Lasix today, monitor renal function, monitor urine output -Will daily dose Lasix based on creatinine- -Encourage ambulation, fluid restrictions 1200 cc Status: Acute (2) Gram-positive bacteremia: Status: Acute (3) Leukocytosis: Bacteremia, further plan as below Status: Acute (4) History of lumbar surgery: Status: Chronic (5) Acute renal failure: Resolved. Initially prerenal, improved with IV fluids Continue to monitor postvoid residuals with straight cath as needed, may require Miranda catheter placement if continues to have urinary retention Status: Acute Qualifiers: Acute renal failure type: unspecified Qualified Code(s): N17.9 - Acute kidney failure, unspecified (6) Change in mental status: Status: Acute (7) Elevated troponin: Likely secondary to JUAN on admission No chest pain or shortness of breath reported patient had prior severe three-vessel disease, not having any chest pain or shortness of breath but if any continued cardiac symptoms may require cardiology consultation. Status: Acute (8) Atherosclerotic heart disease of [place] coronary artery without angina pectoris: Status: Acute Qualifiers: [place] vs. transplanted heart: [place] heart Qualified Code(s): I25.10 - Atherosclerotic heart disease of [place] coronary artery without angina pectoris (9) Diastolic heart failure: Status: Acute Qualifiers: Heart failure chronicity: chronic Qualified Code(s): I50.32 - Chronic diastolic (congestive) heart failure (10) History of DVT (deep vein thrombosis): Status: Acute (11) Major depressive disorder, recurrent severe without psychotic features: Status: Acute Additional A&P Information Gram-positive bacteremia: History of CABG, chronic back pain. Patient also had gram-positive bacteremia couple of months ago for which she was treated with linezolid to finish a two-week course. Patient having same bacteremia at present. Last time MELIZA was done which suggestive of mitral valve thickening. As patient has had repeated bacteremia from the same bacteria in 5 months patient will require 6 weeks of IV antibiotics. Patient was discussed with Dr. Heard from cardiology. He would want to do MELIZA as an outpatient if patient persists to have positive blood cultures after completion of IV antibiotic course. PICC line successfully placed today Will require 6 weeks of vancomycin Current vancomycin trough high at 40.7, currently vancomycin is on hold, monitor creatinine, monitor urine output MRSA nares admission was negative. CT spine negative for discitis. Change in mental status: Resolved, patient is at baseline mentation Zoloft decreased to 100 mg daily, Seroquel decreased to 50 mg at bedtime, oxycodone spaced out to every 8 hours as needed for severe pain, baclofen spaced out to every 8 hours as needed for severe spasms. Caution with the sedating medications. Diastolic heart failure: Last echo in 2018 shows an EF of 66% with no other WMA with grade 1 diastolic dysfunction, trace AR, trace MR, moderate LVH. BNP is over 70,000, Crackles on exam, minimal pitting edema, requiring 3 L oxygen supplementation, chest x-ray shows mild probably vascular congestion, no focal pneumonia, pro-Adam within normal limits Patient was given 80 mg of Lasix today, continue to monitor urine output, daily dose Lasix Monitor I's and O's CAD: Post CABG: Continue carvedilol at home dose. Hypertension: Blood pressure well maintained right now. Continue home dose of amlodipine, carvedilol. Lisinopril 10 mg daily Chronic opiate use: As per the chart patient has a pain management doctor. Oxycodone was decreased last time to 30 mg every 6 hours. Patient was not altered mental status on admission most likely because of JUAN and multiple psych and oxycodone. Decrease further to 10 mg 3 times daily for now. History of DVT: Patient is on Eliquis at home. Patient over to Lovenox inpatient. We will continue same for now. We will put him back on his home dose of Eliquis on discharge. History of COPD. Has increased oxygen requirements, will start on prednisone 40 mg daily Dementia Lumbosacral radiculopathy. Reported abdominal pain: Secondary to constipation, continue with stool softeners and laxatives as needed. Continue MiraLAX, Colace, add lactulose Generalized weakness and deconditioning secondary to acute illness, recommend fdc facility placement, will need COVID testing within 48hrs of discharge Disposition planning: [facility] nursing facility CODE STATUS: Allow natural . This was discussed with contact on date of admission DVT prophylaxis: Lovenox treatment dose Diet: Cardiac diet Attestations Medical Necessity Statement*: Patient requires hospitalization, for gram-positive bacteremia, acute hypoxia, CHF exacerbation Coding Level of Care Code Acute Electrotyper for Chg Fwd Diagnoses Hypoxia R09.02 Gram-positive bacteremia R78.81 Leukocytosis D72.829 History of lumbar surgery Z98.890 Acute renal failure N17.9 Acute renal failure type: unspecified Change in mental status R41.82 Elevated troponin R79.89 Atherosclerotic heart disease of [place] coronary artery without angina pectoris I25.10 [place] vs. transplanted heart: [place] heart Diastolic heart failure I50.32 Heart failure chronicity: chronic History of DVT (deep vein thrombosis) Z86.718 Major depressive disorder, recurrent severe without psychotic features F33.2
[2020-03-17] MEDS: quetiapine 100 mg Tablet 50 MG PO (21:54)
[2020-03-18] VITALS (8 sets, daily range): BP systolic 117–126; BP diastolic 67–78; PULSE 73–93; RESP 18–20; TEMP 36.4–36.6; O2SAT 94–98
[2020-03-18] MEDS: enoxaparin 100 mg/mL Syringe 90 MG SUBCUT ×2 (00:47→13:28)
[2020-03-18 05:43] LABS: Basophils % 0.1 %; Eosinophils # 0.2 10^3/uL (0.0-0.8); Hematocrit 34.4 % (42.0-52.0); Hemoglobin 10.8 g/dL (11.7-16.6); Lymphocytes # 2.4 10^3/uL (0.8-4.8); Lymphocytes % 19.8 %; Mean Corpuscular HGB Conc 31.4 g/dL (30.0-36.0); Mean Corpuscular Hemoglobin 27.1 pg (28.0-34.0); Mean Corpuscular Volume 86.4 fL (80-94); Monocytes # 1.4 10^3/uL (0.2-0.9); Monocytes % 11.6 %; Neutrophils # 7.95 10^3/uL (1.8-7.7); Neutrophils % 66.1 %; Nucleated Red Blood Cells % 0 %; Platelet Count 279 10^3/cmm (130-400); Red Blood Count 3.98 10^6/uL (4.1-5.3); Red Cell Distribution Width 15.7 % (12.1-15.1)
[2020-03-18 06:05] LABS: C Reactive Protein 29.6 mg/L (0.0-4.9)
[2020-03-18 06:06] LABS: Alanine Aminotransferase 15 U/L (0-41); Albumin Level 3.3 g/dL (3.5-5.2); Alkaline Phosphatase 62 IU/L (40-130); Aspartate Amino Transferase 17 U/L (0-40); Blood Urea Nitrogen 20 mg/dL (8-23); Calcium 8.6 mg/dL (8.5-10.5); Carbon Dioxide 27 mmol/L (22-29); Chloride 100 mmol/L (98-107); Glucose 108 mg/dL (65-115); Magnesium 1.7 mg/dL (1.7-2.3); Osmolality Calculated 277 mOsm/kg (285-295); Phosphorus 2.5 mg/dL (2.5-4.5); Sodium 135 mmol/L (136-145); Total Bilirubin 0.3 mg/dL (0.15-1.2); Total Protein 6.3 g/dL (6.6-8.7)
[2020-03-18 07:16] LABS: Erythrocyte Sedimentation Rate 32 mm/hr (0-10)
[2020-03-18] MEDS: polyethylene glycol 3350 Pkt 17 gm PO (08:33)
[2020-03-18] MEDS: potassium chloride oral liq 20 mEq/15 mL UDC 40 MEQ PO (08:34)
[2020-03-18] MEDS: lactulose oral liq 20 gm/30 mL UDC 10 GM PO (08:35)
[2020-03-18] MEDS: docusate sodium 100 mg Capsule PO (08:35)
[2020-03-18] MEDS: predniSONE 20 mg Tablet 40 MG PO (08:36)
[2020-03-18] MEDS: sertraline 100 mg Tablet PO (08:36)
[2020-03-18] MEDS: multivitamin therapeutic Tablet 1 TAB PO (08:36)
[2020-03-18] MEDS: carvedilol 12.5 mg Tablet PO (08:36)
[2020-03-18] MEDS: amlodipine 5 mg Tablet PO (08:36)
[2020-03-18] MEDS: FUROsemide 10 mg/mL SDV 4mL 40 MG IVP (08:43)
--- NOTE | 2020-03-18 09:24 | PC.SOCIAL ---
IMM Update Pg. 2 of IMM Updated and reviewed with patient. Copy provided at this time.
--- NOTE | 2020-03-18 14:45 | P.DS_ITS ---
Discharge Providers Date of Admission: 03/09/20 19:39 Date of Discharge: March 18, 2020 Attending Provider at Admission: Gregory Ayers MD Attending Provider at Discharge: Bennett Berry MD Primary Care Provider: MEGGAN Obando Diagnoses at Discharge Discharge Diagnosis (1) Change in mental status: Status: Acute (2) Acute renal failure: Status: Acute Qualifiers: Acute renal failure type: unspecified Qualified Code(s): N17.9 - Acute kidney failure, unspecified (3) Acute on chronic congestive heart failure: Status: Acute Qualifiers: Heart failure type: diastolic Qualified Code(s): I50.33 - Acute on chronic diastolic (congestive) heart failure (4) Elevated troponin: Status: Acute (5) Lumbar disc disease: Status: Acute (6) History of DVT (deep vein thrombosis): Status: Acute (7) COPD (chronic obstructive pulmonary disease) with chronic bronchitis: Status: Chronic (8) Gram-positive bacteremia: Status: Acute (9) Intervertebral disc disorder with radiculopathy of lumbosacral region: Status: Chronic Reason for Visit Reason for Visit: UTI Hospital Course Discharge Summary: This is a 80-year-old male with a past medical history of diastolic heart failure, CAD status post CABG, hypertension, chronic opiate use, history of DVT, history of COPD, history of dementia, history of lumbosacral radiculopathy, who presents to due to confusion and fevers Patient was found to have repeat staphylococcal bacteremia, received IV antibiotics, clinically improved, mentation improved back to baseline. The etiology of his bacteremia is suspicious for endocarditis, patient had a transesophageal echocardiogram on his last admission which showed mitral valve thickening, he was discharged on Zyvox for 2 weeks for his gram-positive bacteremia, however it has reoccurred. After discussion with cardiology, the plan is to repeat transesophageal echocardiogram as outpatient if patient's blood cultures remain positive after completion of antibiotic course. Patient received a PICC line, with 6 weeks of vancomycin, will be discharged to the assisted, with close follow-up with infectious disease in 1 month. Of note patient's vancomycin trough on 03/16/2020 was 40, his vancomycin has been held for the last 48 hours, last vancomycin dose was 1250 mg every 12 hours. correction is to repeat vancomycin trough tomorrow, dose vancomycin appropriately, trough should be between 15-20. Weekly CBCs and CRPs. Patient also had acute hypoxic respiratory failure secondary to CHF exacerbation, managed with diuretic therapy as inpatient, he clinically improved, ambulating without significant symptomatology, discharged on Lasix therapy, 3 L oxygen nasal cannula, with close follow-up with senior benefits manager outpatient Physical Exam Const: COMMON NORMALS: no acute distress and patient oriented x3 HENMT: COMMON NORMALS: normocephalic HEAD & SCALP: normocephalic Neck/C-Spine: COMMON NORMALS: no JVD Resp: COMMON NORMALS: normal respiratory effort, No retractions, No use of accessory muscles and clear to auscultation bilaterally AUSCULTATION: clear to auscultation bilaterally Cardio: COMMON NORMALS: no JVD, regular rate, regular rhythm, S1 normal heart sound present and S2 normal heart sound present RATE: regular rate RHYTHM: regular rhythm HEART SOUNDS: S1 normal heart sound present and S2 normal heart sound present GI: COMMON NORMALS: Normal to inspection, nondistended, normoactive bowel sounds present, Soft to palpation, non-tender, No hepatosplenomegaly present, no masses and no bruits PALPATION: Yes Soft to palpation and Yes No hepatosplenomegaly present Extremity: COMMON NORMALS: capillary refill normal, no clubbing, cyanosis or edema, no calf tenderness and no pedal edema Neuro: COMMON NORMALS: patient oriented x3 Psych: COMMON NORMALS: mental status grossly normal Urinary Catheter Management^: Miranda: Cath Placed During This Visit: yes, but has since been removed by the nurse Reason for Continuing Indwelling Catheter: Not indwelling catheter Urinary Catheter Date of Insertion: 03/09/20 Urinary Catheter Time of Insertion: 19:30 Date Urinary Catheter Removed: 03/12/20 Time Urinary Catheter Discontinued: 12:00 Discharge Data Data Completed and Pending: Completed Studies During Hospitalization Category Date Time Status CT head wo con* 7 0450 Urgent Cat Scan 03/09/20 17:[address] lumbar spine w o con* 98561 Routi ne Cat Scan 03/12/20 11:[address] thoracic spin wo con* [id number] Rout ine Cat Scan 03/12/20 11:30 Completed CXRP [XR chest 1V portable 16326] R outine Exams 03/17/20 08:34 Completed XR KUB portable 7 4018 Routine Exams 03/10/20 09:17 Completed XR abdomen 1V* 74 018 Routine Exams 03/15/20 12:06 Completed XR chest 1V royer ble [id number] Routine Exams 03/15/20 11:34 Completed XR chest 1V royer ble 33912 Routine Exams 03/16/20 10:42 Completed XR chest 1V royer ble 97197 Routine Exams 03/17/20 07:00 Completed XR chest 1V royer ble 74299 Urgent Exams 03/09/20 17:22 [place] [id number] Stat Ultrasound 03/16/20 06:39 Completed CV echo limited 9 3308 Routine Ultrasound 03/10/20 Completed US renal BI with bladder Routine Ultrasound 03/10/20 21:46 Completed Pending at discharge Category Date Time Status Complete Blood Co unt w/Auto AM LABS Lab 03/19/20 04:00 Ordered Comprehensive Met abolic Panel AM LA BS Lab 03/19/20 04:00 Ordered Magnesium AM LABS Lab 03/19/20 04:00 Ordered Phosphorus AM LAB S Lab 03/19/20 04:00 Ordered Vancomycin Random Routine Lab 03/19/20 04:00 Ordered Labs from last 24 hours 03/18/20 03/18/20 03/18/20 05:10 05:10 05:10 WBC 12.0 H RBC 3.98 L Hgb 10.8 L Hct 34.4 L MCV 86.4 MCH 27.1 L MCHC 31.4 RDW 15.7 H Plt Count 279 MPV 11.0 H Neut % (Auto) 66.1 Lymph % (Auto) 19.8 [place] % (Auto) 11.6 Eos % (Auto) 2.0 Baso % (Auto) 0.1 Neut # (Auto) 7.95 H Lymph # (Auto) 2.4 [place] # (Auto) 1.4 H Eos # (Auto) 0.2 Baso # (Auto) 0.0 Nucleated RBC % (a uto) 0 Nucleated RBCs # 0.0 ESR Sodium 135 L Potassium 4.0 Chloride 100 Carbon Dioxide 27 Anion Gap 12.0 BUN 20 Creatinine 1.4 H GFR Calculation Not Reportable Glucose 108 Calculated Osmolal ity 277 L Calcium 8.6 Phosphorus 2.5 Magnesium 1.7 Total Bilirubin 0.3 AST 17 ALT 15 Alkaline Phosphata se 62 C-Reactive Protein 29.6 H Total Protein 6.3 L Albumin 3.3 L Globulin 3.0 Vancomycin Trough Random Vancomycin 03/18/20 03/17/20 05:10 14:13 WBC RBC Hgb Hct MCV MCH MCHC RDW Plt Count MPV Neut % (Auto) Lymph % (Auto) [place] % (Auto) Eos % (Auto) Baso % (Auto) Neut # (Auto) Lymph # (Auto) [place] # (Auto) Eos # (Auto) Baso # (Auto) Nucleated RBC % (a uto) Nucleated RBCs # ESR 32 H Sodium Potassium Chloride Carbon Dioxide Anion Gap BUN Creatinine GFR Calculation Glucose Calculated Osmolal ity Calcium Phosphorus Magnesium Total Bilirubin AST ALT Alkaline Phosphata se C-Reactive Protein Total Protein Albumin Globulin Vancomycin Trough Cancelled Random Vancomycin 32.5 Vitals: Last Vital Signs Temp 97.8 F 03/18/20 08:00 Pulse 88 03/18/20 13:26 Resp 18 03/18/20 13:24 BP 126/78 03/18/20 08:00 Pulse Ox 98 03/18/20 13:24 Discharge Plan Discharge Patient Disposition: Xfer SNF Condition: Stable Prescriptions: New sertraline 100 mg Tablet 100 mg PO DAILY 30 Days Qty: 30 RF: 0 quetiapine 100 mg Tablet 50 mg PO BEDTIME 30 Days Qty: 30 RF: 0 potassium chloride 20 mEq/15 mL Liquid 40 meq PO DAILY 30 Days Qty: 1200 RF: 0 baclofen 10 mg Tablet 10 mg PO Q8H PRN (Reason: spasms) 15 Days Qty: 15 RF: 0 docusate sodium 100 mg Capsule 100 mg PO BID 30 Days Qty: 60 RF: 0 lactulose 20 gram/30 mL Solution 10 g PO DAILY PRN (Reason: constipation) Qty: 1200 RF: 0 amlodipine 5 mg Tablet 5 mg PO DAILY 30 Days Qty: 30 RF: 0 oxycodone 15 mg tablet 15 mg PO Q8H PRN (Reason: pain) 7 Days Qty: 20 RF: 0 Continued Amitiza 24 mcg capsule 24 mcg PO BID 30 Days Qty: 60 RF: 2 (DME) Coloplast Paste Paste See Rx Instructions .ROUTE .MEDSUPPLY Qty: 60 RF: 5 Eliquis 5 mg tablet 5 mg PO BID RF: 0 ProAir HFA 90 mcg/actuation HFA aerosol inhaler 2 puff INHALATION QID PRN (Reason: Shortness Of Breath) Qty: 8.5 RF: 2 carvedilol 12.5 mg tablet 12.5 mg PO BID Qty: 60 RF: 3 nitroglycerin [Nitrostat] 0.4 mg tablet, sublingual 0.4 mg SUBLINGUAL Q5M PRN (Reason: Chest Pain) Qty: 100 RF: 2 multivitamin [Multiple Vitamins] Tablet 1 tab PO DAILY RF: 0 furosemide [Lasix] 40 mg Tablet 40 mg PO BID PRN (Reason: Edema) Qty: 0 RF: 0 Changed Miralax 17 gram Powder In Packet 17 g PO DAILY Qty: 60 RF: 0 Discontinued Seroquel 100 mg tablet 100 mg PO BEDTIME Qty: 30 RF: 1 sertraline [Zoloft] 100 mg tablet 200 mg PO DAILY Qty: 60 RF: 1 oxycodone 30 mg tablet See Rx Instructions .ROUTE .COMPLEX RF: 0 baclofen 20 mg tablet 20 mg PO TID PRN (Reason: Spasms) RF: 0 lisinopril 20 mg tablet 20 mg PO DAILY Qty: 90 RF: 3 amlodipine 10 mg tablet 10 mg PO DAILY Qty: 90 RF: 3 No Action trazodone 100 mg tablet See Rx Instructions .ROUTE .COMPLEX Qty: 90 RF: 1 Discharge Orders: Discharge Order (Routine); Ordered 03/18/20 Ordered By: Bennett Vogel Ambulatory Orders: Complete Blood Count w/Auto (WEEKLY) Timeframe: 20200324 Location: Determined by Patient Ordered By: Tayla Aminriekaterina Complete Blood Count w/Auto (WEEKLY) Timeframe: 20200325 Location: Determined by Patient Ordered By: Tayla Dleucahuria Complete Blood Count w/Auto (WEEKLY) Timeframe: 20200326 Location: Determined by Patient Ordered By: Tayla Delucahuria Complete Blood Count w/Auto (WEEKLY) Timeframe: 20200327 Location: Determined by Patient Ordered By: Tayla Aminria Comprehensive Metabolic Panel (WEEKLY) Timeframe: 20200324 Facility: [facility] - Location: Lab - Main Lab Ordered By: Tayla Vargas Comprehensive Metabolic Panel (WEEKLY) Timeframe: 20200325 Facility: [facility] - Location: Lab - Main Lab Ordered By: Tayla Vargas Comprehensive Metabolic Panel (WEEKLY) Timeframe: 20200326 Facility: [facility] - Location: Lab - Main Lab Ordered By: Tayla Vargas Comprehensive Metabolic Panel (WEEKLY) Timeframe: 20200327 Facility: [facility] - Location: Lab - Main Lab Ordered By: Tayla Vargas Referrals: Brisa Jensen FNP-C [Primary Care Provider] - 03/24/20 10:40 am Tayla Vargas MD [Hospitalist] - 1 month (Please follow up with Dr Vargas at [facility] within one month. Please call them at [phone]) Cassandra Moss FNP [Nurse Practitioner] - 04/13/20 10:00 am (Please follow up with Cassandra Moss at [facility] on 04/13 at 10am) Discharge Diet: Cardiac Discharge Activity: Increase activity as tolerated Patient Instructions: Potassium Chloride (By mouth), Baclofen (By mouth), Laxative, Stool Softeners (By mouth), Lactulose (By mouth), Sertraline (By mouth), Amlodipine (By mouth), Quetiapine (By mouth), Oxycodone, Slow Release (By mouth), Acute Kidney Injury (DC), Hypoxia (GEN) Activity Restrictions/Additional Instructions: -For Staphylococcus bacteremia, check weekly CBCs and CMP, follow-up with Dr. Vargas in 1 month, if fevers or chills please come back to the emergency room -PICC line was placed 03/17/2020 -Needs a total of 6 weeks of vancomycin -Last vancomycin trough was 40.7 on 03/16/2020 -Thus vancomycin is on hold for the last 48 hours, last vancomycin dosing is 1250 mg IV every 12 hours -Recheck vancomycin trough tomorrow at 03/19/2020, based on vancomycin trough dose vancomycin -Trough should between 15-20 -Continue PT OT, monitor urine output, monitor creatinine -Patient will be discharged on 3 L nasal cannula, secondary to fluid overload -Daily dose of Lasix, monitor respiratory status -Lisinopril 10 mg daily is on hold until creatinine less than 1 Discharge Attestations Time Spent in Discharge Care*: less than 30 min Quality Metrics Clinical Quality Measures During this hospital stay, did patient experience: None Coding Level of Care Code Acute Foundry Technician for Chg Fwd Diagnoses Change in mental status R41.82 Acute renal failure N17.9 Acute renal failure type: unspecified Acute on chronic congestive heart failure I50.33 Heart failure type: diastolic Elevated troponin R79.89 Lumbar disc disease M51.9 History of DVT (deep vein thrombosis) Z86.718 COPD (chronic obstructive pulmonary disease) with chronic bronchitis J44.9 Gram-positive bacteremia R78.81 Intervertebral disc disorder with radiculopathy of lumbosacral region M51.17
== END 2020-03-18 15:16 | disposition skilled nursing facility (03) | DRG 871 ==
LOC: ER 19:01 → MEDSURG 21:07
PROVIDERS: Emergency Medicine; Family Medicine; Physician Assistant; Student in an Organized Health Care Education/Training Program; Admitting Provider Internal Medicine; PCP Nurse Practitioner; Visit Provider Family Medicine
DX: R78.81 Bacteremia (principal); I50.33 Acute on chronic diastolic (congestive) heart failure; J96.01 Acute respiratory failure with hypoxia; N17.9 Acute kidney failure, unspecified; F03.90 Unspecified dementia, unspecified severity, without behavioral disturbance, psychotic disturbance, mood disturbance, and anxiety; I25.10 Atherosclerotic heart disease of native coronary artery without angina pectoris; Z95.5 Presence of coronary angioplasty implant and graft; I11.0 Hypertensive heart disease with heart failure; K59.09 Other constipation; Z79.891 Long term (current) use of opiate analgesic; J44.9 Chronic obstructive pulmonary disease, unspecified; Z86.718 Personal history of other venous thrombosis and embolism; E78.5 Hyperlipidemia, unspecified; F41.1 Generalized anxiety disorder; Z85.840 Personal history of malignant neoplasm of eye; Z90.01 Acquired absence of eye; Z98.1 Arthrodesis status; F32.9 Major depressive disorder, single episode, unspecified; I73.9 Peripheral vascular disease, unspecified; G47.30 Sleep apnea, unspecified; Z95.1 Presence of aortocoronary bypass graft; Z87.891 Personal history of nicotine dependence; Z79.01 Long term (current) use of anticoagulants; B95.8 Unspecified staphylococcus as the cause of diseases classified elsewhere; M54.17 Radiculopathy, lumbosacral region; G89.29 Other chronic pain; Z66 Do not resuscitate
CPT/HCPCS: 12345; 36415; 36569; 36592; 51702; 70450; 71045; 72128; 72131; 74018; 76770; 76857; 80053; 80202; 80306; 81003; 82140; 82550; 82607; 82746; 83605; 83735; 83880; 84100; 84132; 84145; 84443; 84484; 85025; 85610; 85651; 85730; 86140; 87040; 87077; 87186; 87426; 87635; 92523; 92526; 92610; 93005; 93308; 93925; 94640; 96372; 96375; 97110; 97163; 97166; 97530; 99283; J1650; J1940; J2270; J2405; J3370; J3480; J3535; J7030; J7050; J7512

== ENCOUNTER 2020-04-01 14:48 | Outpatient (CLI) | payer MEDICARE, MEDICAID, SELFPAY ==
--- NOTE | 2020-04-01 14:56 | XRR_ITS ---
PROCEDURE INFORMATION: Exam: XR Right Hand Exam date and time: 04/01/2020 3:31 PM Age: 80 years old Clinical indication: Pain; Hand; Right; Additional info: Pain after fall 2 months TECHNIQUE: Imaging protocol: XR Right hand. Views: Frontal, lateral, and oblique views. COMPARISON: CR XR hand RT min 3V* [id number] 09/10/2019 5:19 PM FINDINGS: Bones/joints: No acute bony abnormality identified. Healed fracture deformity of the distal 5th metacarpal. Joint narrowing and mild subchondral sclerosis at the 5th proximal interphalangeal and capitate-lunate joints Triangular fibrocartilage chondrocalcinosis. Soft tissues: Tiny metallic subcutaneous foreign body of the dorsal wrist, stable. Vasculature: Vascular calcifications are present. XR/XR hand RT min 3V* [id number] IMPRESSION: 1. No acute bony abnormality identified. 2. Tiny metallic subcutaneous foreign body of the dorsal wrist, stable. 3. Triangular fibrocartilage chondrocalcinosis. 4. Primary osteoarthritis.
--- NOTE | 2020-04-01 14:56 | XRR_ITS ---
PROCEDURE INFORMATION: Exam: XR Right Shoulder Exam date and time: 04/01/2020 3:31 PM Age: 80 years old Clinical indication: Pain; Shoulder; Right; Additional info: Pain shoulder after fall 2 months ago TECHNIQUE: Imaging protocol: XR Right shoulder. Views: AP internal and external rotation views of the right shoulder. COMPARISON: No relevant prior studies available. FINDINGS: Bones/joints: Rotator cuff calcifications on the internally rotated view. Moderately large inferior humeral head articular marginal osteophytes, small inferior scapular glenoid articular marginal osteophytes, inferior glenohumeral joint moderate narrowing. No acute bony abnormality identified. Soft tissues: Normal. XR/XR shoulder RT min 2V* [id number] IMPRESSION: 1. Infraspinatus chronic calcific tendinopathy. 2. Primary glenohumeral joint osteoarthritis. 3. No acute bony injury identified.
== END 2020-04-01 14:49 | disposition home or self-care (01) ==
LOC: RAD 14:53
PROVIDERS: PCP Nurse Practitioner; Visit Provider Nurse Practitioner
DX: M19.011 Primary osteoarthritis, right shoulder (principal); M11.241 Other chondrocalcinosis, right hand; M19.041 Primary osteoarthritis, right hand
CPT/HCPCS: 73030; 73130

== ENCOUNTER 2020-04-02 11:38 | Outpatient (CLI) | payer MEDICARE, MEDICAID, SELFPAY ==
[2020-04-02 12:09] LABS: Basophils % 0.4 %; Eosinophils # 0.4 10^3/uL (0.0-0.8); Eosinophils % 5.2 %; Hematocrit 28.8 % (42.0-52.0); Hemoglobin 8.9 g/dL (11.7-16.6); Lymphocytes # 1.3 10^3/uL (0.8-4.8); Lymphocytes % 18.2 %; Mean Corpuscular HGB Conc 30.9 g/dL (30.0-36.0); Mean Corpuscular Hemoglobin 28.1 pg (28.0-34.0); Mean Corpuscular Volume 90.9 fL (80-94); Mean Platelet Volume 10.2 fL (7.4-10.4); Monocytes # 0.6 10^3/uL (0.2-0.9); Monocytes % 8.5 %; Neutrophils # 4.93 10^3/uL (1.8-7.7); Neutrophils % 67.4 %; Nucleated Red Blood Cells % 0 %; Platelet Count 198 10^3/cmm (130-400); Red Blood Count 3.17 10^6/uL (4.1-5.3); White Blood Count 7.3 10^3/uL (4.0-10.0)
[2020-04-02 12:26] LABS: Alanine Aminotransferase 16 U/L (0-41); Albumin Level 3.2 g/dL (3.5-5.2); Alkaline Phosphatase 77 IU/L (40-130); Anion Gap 12.7 (5-19); Aspartate Amino Transferase 16 U/L (0-40); Blood Urea Nitrogen 10 mg/dL (8-23); Carbon Dioxide 29 mmol/L (22-29); Chloride 100 mmol/L (98-107); Glucose 100 mg/dL (65-115); Osmolality Calculated 285 mOsm/kg (285-295); Potassium 3.7 mmol/L (3.5-5.1); Sodium 138 mmol/L (136-145); Total Bilirubin 0.2 mg/dL (0.15-1.2); Total Protein 6.2 g/dL (6.6-8.7)
[2020-04-02 12:54] LABS: Vancomycin Trough 13.8 ug/mL (10-15)
== END 2020-04-02 11:39 | disposition home or self-care (01) ==
LOC: LAB 11:41
PROVIDERS: PCP Nurse Practitioner; Visit Provider Student in an Organized Health Care Education/Training Program
DX: I33.9 Acute and subacute endocarditis, unspecified (principal)
CPT/HCPCS: 80053; 80202; 85025

== ENCOUNTER 2020-04-06 15:26 | Outpatient (CLI) | payer MEDICARE, MEDICAID, SELFPAY ==
[2020-04-06 16:48] LABS: Blood Urea Nitrogen 14 mg/dL (8-23); Carbon Dioxide 33 mmol/L (22-29); Chloride 99 mmol/L (98-107); Glucose 78 mg/dL (65-115); Osmolality Calculated 291 mOsm/kg (285-295); Sodium 141 mmol/L (136-145)
[2020-04-06 16:49] LABS: Vancomycin Trough 17.5 ug/mL (10-15)
== END 2020-04-06 15:27 | disposition home or self-care (01) ==
LOC: LAB 15:29
PROVIDERS: PCP Nurse Practitioner; Visit Provider Family Medicine
DX: I33.0 Acute and subacute infective endocarditis (principal)
CPT/HCPCS: 80048; 80202

== ENCOUNTER 2020-04-13 14:12 | Outpatient (CLI) | payer MEDICARE, MEDICAID, SELFPAY ==
[2020-04-13 14:38] LABS: Basophils # 0.1 10^3/uL (0.0-0.1); Basophils % 0.9 %; Eosinophils # 0.6 10^3/uL (0.0-0.8); Eosinophils % 6.8 %; Hematocrit 30.3 % (42.0-52.0); Hemoglobin 9.4 g/dL (11.7-16.6); Lymphocytes # 2.2 10^3/uL (0.8-4.8); Lymphocytes % 26.5 %; Mean Corpuscular Hemoglobin 28.1 pg (28.0-34.0); Mean Corpuscular Volume 90.4 fL (80-94); Mean Platelet Volume 10.5 fL (7.4-10.4); Monocytes # 0.7 10^3/uL (0.2-0.9); Monocytes % 8.4 %; Neutrophils # 4.64 10^3/uL (1.8-7.7); Neutrophils % 57.2 %; Nucleated Red Blood Cells % 0 %; Platelet Count 271 10^3/cmm (130-400); Red Blood Count 3.35 10^6/uL (4.1-5.3); Red Cell Distribution Width 16.3 % (12.1-15.1); White Blood Count 8.1 10^3/uL (4.0-10.0)
[2020-04-13 14:56] LABS: Vancomycin Trough 15.1 ug/mL (10-15)
[2020-04-13 14:58] LABS: Alanine Aminotransferase 8 U/L (0-41); Albumin Level 3.3 g/dL (3.5-5.2); Alkaline Phosphatase 82 IU/L (40-130); Anion Gap 12.9 (5-19); Aspartate Amino Transferase 14 U/L (0-40); Blood Urea Nitrogen 16 mg/dL (8-23); Carbon Dioxide 31 mmol/L (22-29); Chloride 100 mmol/L (98-107); Globulin 3.2 g/dL (1.3-4.6); Glucose 74 mg/dL (65-115); Osmolality Calculated 290 mOsm/kg (285-295); Potassium 3.9 mmol/L (3.5-5.1); Sodium 140 mmol/L (136-145); Total Bilirubin 0.2 mg/dL (0.15-1.2); Total Protein 6.5 g/dL (6.6-8.7)
== END 2020-04-13 14:13 | disposition home or self-care (01) ==
LOC: LAB 14:16
PROVIDERS: PCP Nurse Practitioner; Visit Provider Student in an Organized Health Care Education/Training Program
DX: I33.0 Acute and subacute infective endocarditis (principal)
CPT/HCPCS: 80053; 80202; 85025

== ENCOUNTER 2020-04-16 13:01 | Outpatient (CLI) | payer MEDICARE, MEDICAID, SELFPAY ==
[2020-04-16 14:47] LABS: Vancomycin Trough 18.5 ug/mL (10-15)
== END 2020-04-16 13:02 | disposition home or self-care (01) ==
LOC: LAB 13:04
PROVIDERS: PCP Nurse Practitioner; Visit Provider Student in an Organized Health Care Education/Training Program
DX: I33.0 Acute and subacute infective endocarditis (principal)
CPT/HCPCS: 80202; 82565

== ENCOUNTER 2020-04-17 16:05 | Outpatient (CLI) | payer MEDICARE, MEDICAID, SELFPAY ==
[2020-04-21 23:32] LABS: Quest SARS-CoV-2 RNA NOT DETECTED (NOT DETECTED)
== END 2020-04-17 16:06 | disposition home or self-care (01) ==
LOC: LAB 16:06
PROVIDERS: PCP Nurse Practitioner; Visit Provider Nurse Practitioner
DX: I38 Endocarditis, valve unspecified (principal)
CPT/HCPCS: 87635

== ENCOUNTER 2020-04-20 15:50 | Outpatient (CLI) | payer MEDICARE, MEDICAID, SELFPAY ==
[2020-04-20 17:14] LABS: Blood Urea Nitrogen 14 mg/dL (8-23)
[2020-04-20 17:42] LABS: Vancomycin Trough 25.4 ug/mL (10-15)
== END 2020-04-20 15:51 | disposition home or self-care (01) ==
LOC: LAB 15:52
PROVIDERS: PCP Nurse Practitioner; Visit Provider Student in an Organized Health Care Education/Training Program
DX: I33.0 Acute and subacute infective endocarditis (principal)
CPT/HCPCS: 80202; 84520

== ENCOUNTER 2020-04-23 14:14 | Outpatient (CLI) | payer MEDICARE, MEDICAID, SELFPAY ==
[2020-04-23 14:26] LABS: Basophils # 0.1 10^3/uL (0.0-0.1); Basophils % 1.3 %; Eosinophils # 0.5 10^3/uL (0.0-0.8); Eosinophils % 7.4 %; Hematocrit 28.4 % (42.0-52.0); Hemoglobin 8.8 g/dL (11.7-16.6); Lymphocytes # 2.1 10^3/uL (0.8-4.8); Lymphocytes % 29.6 %; Mean Corpuscular Hemoglobin 28.3 pg (28.0-34.0); Mean Corpuscular Volume 91.3 fL (80-94); Mean Platelet Volume 10.6 fL (7.4-10.4); Monocytes # 0.6 10^3/uL (0.2-0.9); Monocytes % 9.1 %; Neutrophils # 3.63 10^3/uL (1.8-7.7); Neutrophils % 52.5 %; Nucleated Red Blood Cells % 0 %; Platelet Count 227 10^3/cmm (130-400); Red Blood Count 3.11 10^6/uL (4.1-5.3); Red Cell Distribution Width 16.8 % (12.1-15.1); White Blood Count 6.9 10^3/uL (4.0-10.0)
[2020-04-23 14:43] LABS: Alanine Aminotransferase 8 U/L (0-41); Albumin Level 3.2 g/dL (3.5-5.2); Alkaline Phosphatase 74 IU/L (40-130); Anion Gap 12.4 (5-19); Aspartate Amino Transferase 12 U/L (0-40); Blood Urea Nitrogen 17 mg/dL (8-23); Calcium 8.7 mg/dL (8.5-10.5); Carbon Dioxide 31 mmol/L (22-29); Chloride 99 mmol/L (98-107); Globulin 2.9 g/dL (1.3-4.6); Glucose 134 mg/dL (65-115); Osmolality Calculated 292 mOsm/kg (285-295); Potassium 3.4 mmol/L (3.5-5.1); Sodium 139 mmol/L (136-145); Total Bilirubin 0.2 mg/dL (0.15-1.2); Total Protein 6.1 g/dL (6.6-8.7)
[2020-04-23 15:02] LABS: Vancomycin Trough 7.8 ug/mL (10-15)
== END 2020-04-23 14:15 | disposition home or self-care (01) ==
LOC: LAB 14:17
PROVIDERS: PCP Nurse Practitioner; Visit Provider Student in an Organized Health Care Education/Training Program
DX: I33.9 Acute and subacute endocarditis, unspecified (principal)
CPT/HCPCS: 80053; 80202; 85025

== ENCOUNTER → 2020-04-27 08:43 | Outpatient (BNVA) | payer MEDICARE, MEDICAID, SELFPAY | PROVIDERS: PCP Nurse Practitioner; Visit Provider Nurse Practitioner | DX: F41.1 Generalized anxiety disorder (principal); F33.2 Major depressive disorder, recurrent severe without psychotic features; F03.90 Unspecified dementia, unspecified severity, without behavioral disturbance, psychotic disturbance, mood disturbance, and anxiety | CPT/HCPCS: 99214 ==

== ENCOUNTER 2020-04-27 12:46 | Outpatient (CLI) | payer MEDICARE, MEDICAID, SELFPAY ==
[2020-04-27 13:31] LABS: Blood Urea Nitrogen 14 mg/dL (8-23); Calcium 9.2 mg/dL (8.5-10.5); Carbon Dioxide 26 mmol/L (22-29); Chloride 101 mmol/L (98-107); Glucose 96 mg/dL (65-115); Osmolality Calculated 288 mOsm/kg (285-295); Sodium 139 mmol/L (136-145)
[2020-04-27 13:32] LABS: Vancomycin Trough 14.1 ug/mL (10-15)
== END 2020-04-27 12:47 | disposition home or self-care (01) ==
LOC: LAB 12:49
PROVIDERS: PCP Nurse Practitioner; Visit Provider Nurse Practitioner
DX: I33.0 Acute and subacute infective endocarditis (principal)
CPT/HCPCS: 80048; 80202; 99214

== ENCOUNTER 2020-04-30 12:25 | Outpatient (CLI) | payer MEDICARE, MEDICAID, SELFPAY ==
[2020-04-30 12:50] LABS: Basophils # 0.1 10^3/uL (0.0-0.1); Basophils % 1.2 %; Eosinophils # 0.8 10^3/uL (0.0-0.8); Eosinophils % 10.8 %; Hemoglobin 9.6 g/dL (11.7-16.6); Lymphocytes # 1.8 10^3/uL (0.8-4.8); Lymphocytes % 22.5 %; Mean Corpuscular Hemoglobin 28.2 pg (28.0-34.0); Mean Corpuscular Volume 91.2 fL (80-94); Mean Platelet Volume 10.4 fL (7.4-10.4); Monocytes # 0.7 10^3/uL (0.2-0.9); Monocytes % 9.3 %; Neutrophils # 4.35 10^3/uL (1.8-7.7); Neutrophils % 55.9 %; Nucleated Red Blood Cells % 0 %; Platelet Count 230 10^3/cmm (130-400); Red Cell Distribution Width 16.3 % (12.1-15.1); White Blood Count 7.8 10^3/uL (4.0-10.0)
[2020-04-30 13:11] LABS: Vancomycin Trough 14.9 ug/mL (10-15)
[2020-04-30 13:14] LABS: Alanine Aminotransferase 7 U/L (0-41); Albumin Level 3.2 g/dL (3.5-5.2); Alkaline Phosphatase 82 IU/L (40-130); Anion Gap 12.9 (5-19); Aspartate Amino Transferase 10 U/L (0-40); Blood Urea Nitrogen 8 mg/dL (8-23); Calcium 8.9 mg/dL (8.5-10.5); Carbon Dioxide 30 mmol/L (22-29); Chloride 99 mmol/L (98-107); Glucose 141 mg/dL (65-115); Osmolality Calculated 289 mOsm/kg (285-295); Sodium 139 mmol/L (136-145); Total Bilirubin 0.2 mg/dL (0.15-1.2); Total Protein 6.2 g/dL (6.6-8.7)
[2020-04-30 13:28] LABS: Potassium 2.9 mmol/L (3.5-5.1)
== END 2020-04-30 12:26 | disposition home or self-care (01) ==
LOC: LAB 12:27
PROVIDERS: PCP Nurse Practitioner; Visit Provider Student in an Organized Health Care Education/Training Program
DX: I38 Endocarditis, valve unspecified (principal); Z45.2 Encounter for adjustment and management of vascular access device
CPT/HCPCS: 80053; 80202; 85025

== ENCOUNTER → 2020-06-11 16:35 | Outpatient (BNVA) | payer MEDICARE, MEDICAID, SELFPAY | PROVIDERS: PCP Nurse Practitioner; Visit Provider Internal Medicine Cardiovascular Disease | DX: E78.5 Hyperlipidemia, unspecified (principal); I42.9 Cardiomyopathy, unspecified; I50.33 Acute on chronic diastolic (congestive) heart failure; R06.02 Shortness of breath; R07.89 Other chest pain; I25.10 Atherosclerotic heart disease of native coronary artery without angina pectoris | CPT/HCPCS: 80048; 83880 ==

== ENCOUNTER 2020-06-13 19:31 | Emergency (ER) | payer MEDICARE, MEDICAID, SELFPAY ==
[2020-06-13 19:33] VITALS: BP 137/85; PULSE 77; RESP 16; TEMP 36.6; O2SAT 93; BMI 26.4
--- NOTE | 2020-06-13 19:40 | W.ED.ABDPA2 ---
HPI - Abdominal Pain General: Chief Complaint: Abdominal Pain Stated Complaint: CONSTIPATION Time Seen by Provider: 06/13/20 19:38 History of Present Illness: HPI narrative: Patient is a 80-year-old male who comes to the ED via EMS with abdominal pain and constipation. Past medical history of constipation, CHF, dyslipidemia, hypertension, COPD, CAD. Has not had a bowel movement in the past 5 days. Patient says he takes MiraLAX at home to help with bowel movements. He also feels like he needs to urinate but has not been able to. He says is probably been about a day since he urinated last. His abdominal pain is in the right side of the abdomen. He rates current abdominal pain a 10 out of 10. He says he has had some nausea and vomiting over the past couple days. Patient says he lives at home and has a female prop setter that lives with him and helps take care of him. Associated Symptoms: Reports constipation, nausea and vomiting; Denies chills, diarrhea, dysuria, fever(s), hematochezia and hematuria Review of Systems Const: Denies: fever(s), chills or fatigue Eyes: Denies: change in vision or eye discomfort ENMT: Denies: throat pain, odynophagia, nasal discharge or nasal congestion Card: Denies: chest pain, palpitations, edema, swelling of feet/ankles, dyspnea on exertion or orthopnea Resp: Denies: dyspnea, productive cough or non-productive cough GI: Reports: abdominal pain (Right side of abdomen), nausea, vomiting and constipation; Denies: diarrhea or hematochezia : Reports: difficulty urinating (Unable to urinate for the past 24 hours) and oliguria (Has not urinated in the past 24 hours. 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 Diastolic heart failure DVT (deep venous thrombosis) Dyslipidemia Generalized anxiety disorder 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 History of DVT (deep vein thrombosis) Hx of cervical spinal arthrodesis Hypertension Intervertebral disc disorder with radiculopathy of lumbosacral region Lower abdominal pain Lumbar disc disease Lumbar spondylosis Lumbar stenosis with neurogenic claudication Major depressive disorder, recurrent severe without psychotic features Peripheral vascular disease Scoliosis of lumbar spine Skin tear Sleep apnea, unspecified SOB (shortness of breath) Unspecified dementia without behavioral disturbance Surgical History History of cervical spinal surgery 1979 [facility] C6-C7 laminectomy/fusion/fixation History of heart artery stent (~2006) History of heart bypass surgery (~2007) History of hernia surgery 4x History of knee surgery Right History of lumbar surgery [facility]. L3-L4, L4-L5, L5-S1 decompression History of uvulopalatopharyngoplasty Hx of CABG Hx of cholecystectomy Family History Father Diabetes Mother Colon cancer Hypertension Social History Smoking and tobacco status: former smoker Second hand smoke exposure: No Smoking risk assessment/counseling performed?: No Alcohol intake: never Desire information about alcohol rehabilitation?: No Counseling given: No Desire information about substance/drug rehabilitation?: No Counseling given: No Adopted: No Caregiver/support person: Yes Lives independently: No Household members: significant other Marital status: Number of children: 5 service: No Current occupational status: disabled History of recent travel: No Current gender identity: Male Physical Exam Const: COMMON NORMALS: no acute distress and alert GENERAL APPEARANCE: cooperative and comfortable ORIENTATION/CONSCIOUSNESS: Yes oriented to person and Yes oriented to place; not oriented to time HENMT: COMMON NORMALS: normocephalic HEAD & SCALP: normocephalic MOUTH: Normal oral and palatal mucosa present THROAT: posterior oropharynx normal and uvula midline Neck/C-Spine: COMMON NORMALS: supple GENERAL: Yes normal visual inspection Resp: COMMON NORMALS: normal respiratory effort, No retractions, No use of accessory muscles and clear to auscultation bilaterally AUSCULTATION: clear to auscultation bilaterally Cardio: COMMON NORMALS: regular rate, regular rhythm, S1 normal heart sound present, S2 normal heart sound present, No gallops present (Cardio), No clicks present (Cardio), No murmurs present (Cardio) and Peripheral pulses 2+ throughout RATE: regular rate RHYTHM: regular rhythm HEART SOUNDS: S1 normal heart sound present and S2 normal heart sound present PERIPHERAL PULSES: Peripheral pulses 2+ throughout GI: COMMON NORMALS: Normal to inspection, nondistended, normoactive bowel sounds present and no masses PALPATION: Yes Firmness to palpation present (GI) (RLQ of abdomen feels firm on palpation.), Yes Tenderness to palpation present (GI) (Tenderness to right side of abdomen.) Details: RLQ and RUQ and Yes Bladder palpation abnormal Details: distended and tender : COMMON NORMALS: Yes no CVA tenderness BLADDER/KIDNEY EXAM: Yes no CVA tenderness and Yes Bladder palpation abnormal Back/Pelvis: COMMON NORMALS: no CVA tenderness Neuro: SENSORIUM/ORIENTATION: Yes alert, Yes oriented to person, Yes oriented to place, No oriented to time and Yes Orientation impaired (Patient struggled with time questions. He did not know name of president) OTHER: Patient was oriented to self and place. He struggled with time questions. He did not know name of current president but was aware that there was a recent election. Skin: GENERAL SKIN EXAM: dry skin Procedures Rectal Disimpaction Time out performed rectal disimpaction: Yes Indication: fecal impaction Procedural Sedation: No Sedation/Analgesia: opioids (morphine) Technique: manual disimpaction with gloved finger Result: significant stool output (I was able to break up some stool) Patient Tolerated Procedure: well Complications: none Additional Comments: Stool is brown-colored. Course ED course: Nurse performed bladder scan on patient and says she was getting over 200 mL in bladder. I ordered Miranda catheter placement trying out urine since patient says he cannot urinate and feels like he needs to. Urinalysis ordered as well. Reevaluation(s): Reevaluation #1: Nurse Place, Miranda catheter and 1200 mL of urine drained out. I went in to see patient after Miranda was placed and he said his abdominal pain has improved greatly. Abdomen was soft upon palpation now and did not feel firm on the right lower quadrant. He also had less tenderness to abdomen. Mild tenderness over bladder. Time: 21:26 Reevaluation #2: Patient was given to milk of molasses enemas while here in the ED and approximately half of fecal impaction came out. I then went in and did a manual disimpaction and I was able to break up some of the formed stool in rectum and more started coming out. Patient says he feels a lot better now after getting some stool out and Miranda catheter placed which helped a urinary retention. Vital Signs: Vital signs: Vital Signs Temperature 98.1 F 06/14/20 04:51 Pulse Rate 104 H 06/14/20 04:51 Respiratory Rate 16 06/14/20 04:51 Blood Pressure 151/81 06/14/20 04:51 Pulse Oximetry 98 06/14/20 04:51 MDM - Abdominal Pain MDM Narrative: Medical decision making narrative: Patient is a 80-year-old male comes to the ED with constipation and urinary retention. Patient had not had a bowel movement in 5 days and says he had not urinated in over 24 hours. His abdomen was tender to palpation near the right lower quadrant, distended and firm. Bladder scan showed over 200 mL. Miranda catheter was placed and over 1200 mL came out. Patient's abdomen improved dramatically and was soft upon palpation with some mild tenderness. Patient also said he felt immediate relief once Miranda catheter was placed. KUB shows fecal impaction with possible rectal pneumatosis. CT of abdomen was performed and showed fecal impaction with no rectal pneumatosis seen. Patient was given 2 milk and molasses enema and he was able to pass approximately half of fecal impaction mass. I then performed a manual rectal disimpaction and I was able to break up some stool in the rectum and more stool came out. Labs showed a white blood cell count of 10.5, potassium of 3.0 and he was given potassium here in the ED. Creatinine level of 1.8 likely due to urinary retention. Patient was given IV fluids while here in the ED as well. Patient diagnosed with fecal impaction and acute urinary retention. I placed an order with case management for patient be referred to urologist. Patient was discharged with mag citrate and a prophylactic prescription of cefdinir to help prevent any UTI after Miranda catheter placement and multiple bowel movements while in bed here in the ED. patient was told to follow-up with PCP in 3 to 5 days to recheck creatinine levels. He was told caseworker intake will contact him in the next several days set up appointment with urology. Drink plenty fluids and stay hydrated. Return to ED precautions given. Patient understood and agreed with plan. Lab Data: Attestation: I reviewed the patient's lab results. Labs: Lab Results 06/13/20 06/13/20 06/13/20 Range/Units 20:37 21:31 21:31 WBC 10.5 H (4.0-10.0) 10^3/ uL RBC 3.97 L (4.1-5.3) 10^6/u L Hgb 10.7 L (11.7-16.6) g/dL Hct 34.0 L (42.0-52.0) % MCV 85.6 (80-94) fL MCH 27.0 L (28.0-34.0) pg MCHC 31.5 (30.0-36.0) g/dL RDW 14.7 (12.1-15.1) % Plt Count 285 (130-400) 10^3/c mm MPV 9.9 (7.4-10.4) fL Neut % (Auto) 83.1 % Lymph % (Auto) 10.9 % [place] % (Auto) 5.4 % Eos % (Auto) 0.0 % Baso % (Auto) 0.3 % Neut # (Auto) 8.73 H (1.8-7.7) 10^3/u L Lymph # (Auto) 1.1 (0.8-4.8) 10^3/u L [place] # (Auto) 0.6 (0.2-0.9) 10^3/u L Eos # (Auto) 0.0 (0.0-0.8) 10^3/u L Baso # (Auto) 0.0 (0.0-0.1) 10^3/u L Nucleated RBC % (a uto) 0 % Nucleated RBCs # 0.0 /100WBC Sodium 140 (136-145) mmol/L Potassium 3.0 L (3.5-5.1) mmol/L Chloride 96 L (98-107) mmol/L Carbon Dioxide 32 H (22-29) mmol/L Anion Gap 15.0 (5-19) BUN 20 (8-23) mg/dL Creatinine 1.8 H (0.7-1.2) mg/dL GFR Calculation Not Reportable Glucose 159 H (65-115) mg/dL Calculated Osmolal ity 296 H (285-295) mOsm/k g Calcium 9.6 (8.5-10.5) mg/dL Total Bilirubin 0.3 (0.15-1.2) mg/dL AST 11 (0-40) U/L ALT 7 (0-41) U/L Alkaline Phosphata se 95 (40-130) IU/L Total Protein 7.6 (6.6-8.7) g/dL Albumin 3.7 (3.5-5.2) g/dL Globulin 3.9 (1.3-4.6) g/dL Lipase 12 L (13-60) U/L Urine Color Yellow (Yellow) Urine Appearance Hazy A (CLEAR) Urine pH 5 (5-7) Ur Specific Gravit y 1.015 (1.005-1.030) Urine Protein Neg (Negative) Urine Glucose (UA) Norm (Normal) Urine Ketones Negative (Negative) Urine Blood 3+ H (Negative) Urine Nitrate Negative (Negative) Urine Bilirubin Neg (Negative) Urine Urobilinogen Norm (Negative) mg/dL Ur Leukocyte Kamini ase Negative (Negative) Urine RBC 10-15 H (0-2) /hpf Urine WBC None (0-5) /hpf Ur Squamous Epith Cells 5-10 H (0-5) /hpf Amorphous Sediment Not Reportable Urine Bacteria Trace (NONE) /hpf Urine Mucus 1+ /hpf Imaging Data ^: KUB: Attestation: I personally reviewed and interpreted this imaging study as follows: Radiologist's impression: [address] [address] XRay Report Signed Patient: Anurag Rios Unit #: [id number] : 1940 Age/Sex: 80 / M ADM Date: 06/13/20 Loc: ER Room/Bed: Attending Dr: Ordering Provider/Ordering MD: Juanito Shelton Date of Service: 06/13/20 Procedure(s): XR acute abdomen series 19508 Accession Number(s): [id number] Report Number: [id number] PROCEDURE INFORMATION: Exam: XR Abdomen, 2 Views Exam date and time: 06/13/2020 8:44 PM Age: 80 years old Clinical indication: Constipation TECHNIQUE: Imaging protocol: XR of the abdomen. Views: 2 Views. COMPARISON: No relevant prior studies available. FINDINGS: Tubes, catheters and devices: Multiple surgical clips and surgical coils noted. Lungs: No consolidative pulmonary infiltrates are noted. Gastrointestinal tract: Large volume of retained stool in the rectum, at outlined by air. This air may be within the lumen of the rectum or may be intramural, indicating rectal pneumatosis. Nonobstructive intestinal gas pattern demonstrated. Additional stool is noted in the ascending, transverse, and descending portions of the colon, consistent with constipation. Intraperitoneal space: Unremarkable. No free air. Vasculature: The thoracic aorta is mildly tortuous and atherosclerotic. Bones/joints: Median sternotomy noted. Degenerative spine changes are noted. XR/XR acute abdomen series [id number] IMPRESSION: 1. Large volume of retained stool in the rectum, at outlined by air. This air may be within the lumen of the rectum or may be intramural, indicating rectal pneumatosis. No potential bowel pneumatosis demonstrated. 2. Additional stool is noted in the ascending, transverse, and descending portions of the colon, consistent with constipation. Dictated By: Urbano Leggett MD Signed By: Urbano Leggett MD Signed Date/Time: 06/13/202244 DD/ 42 CT Abd/Pel: Attestation: I personally reviewed and interpreted this imaging study as follows: Radiologist's impression: [address] [address] [address] Scan Report Signed Patient: Anurag Rios Unit #: [id number] : 1940 Age/Sex: 80 / M ADM Date: 06/13/20 Loc: ER Room/Bed: Attending Dr: Ordering Provider/Ordering MD: Juanito Shelton Date of Service: 06/13/20 Procedure(s): CT abdomen pelvis wo con [id number] Accession Number(s): [id number] Report Number: [id number] PROCEDURE INFORMATION: Exam: CT Abdomen And Pelvis Without Contrast Exam date and time: 06/13/2020 11:22 PM Age: 80 years old Clinical indication: Abnormal findings; Abnormal radiologic finding of the abdomen; Radiologic exam and body structure: Aas; Prior surgery; Surgery date: 6+ months; Surgery type: Hernia, l-sp; Patient HX: C/O fecal impaction - S/P enema; Additional info: Abdominal pain with fecal impaction TECHNIQUE: Imaging protocol: Computed tomography of the abdomen and pelvis without contrast. Radiation optimization: All CT scans at this facility use at least one of these dose optimization techniques: automated exposure control; mA and/or kV adjustment per patient size (includes targeted exams where dose is matched to clinical indication); or iterative reconstruction. COMPARISON: CT chest abd pel wo con 09/25/2019 5:36 PM RADIATION DOSE METRICS: Total DLP (mGy-cm): 1216.3 FINDINGS: Lungs: The left lung base is clear. Mild atelectasis versus infiltrate at the right lung base. Liver: 5 mm simple appearing cyst in the dome of the liver. No acute hepatic abnormality. Gallbladder and bile ducts: The gallbladder is surgically absent. Pancreas: The pancreas is normal in appearance. No pancreatic duct dilatation. Spleen: The spleen is normal in size and appearance. Adrenal glands: The adrenal glands appear within normal limits. Kidneys and ureters: There is mild bilateral hydroureteronephrosis. No obstructing ureteral calculi are noted. Stomach and bowel: Large volume of retained stool in the rectum, consistent with fecal impaction. Moderate retained stool demonstrated in the descending and sigmoid portions of the colon. The ascending and transverse portions of the colon appear relatively empty. No acute gastric abnormality demonstrated. The small bowel is unremarkable as demonstrated. Appendix: No evidence of appendicitis. Intraperitoneal space: No pneumoperitoneum. No significant fluid collection. Vasculature: The aorta is atherosclerotic. No aortic aneurysm. Lymph nodes: No pathologically enlarged lymph nodes are demonstrated. Urinary bladder: There is a Miranda catheter in the urinary bladder. The urinary bladder is empty secondary to the presence of the Miranda catheter. Reproductive: Unremarkable as visualized. Bones/joints: Degenerative spine changes are noted. Postop change of the lumbar spine. Soft tissues: The soft tissues appear unremarkable. CT/CT abdomen pelvis wo con [id number] IMPRESSION: 1. Large volume of retained stool in the rectum, consistent with fecal impaction. There is intraluminal air surrounding the retained stool, accounting for the previous plain radiographic findings. There is no pneumatosis or other acute abnormality of the rectum. 2. There is mild bilateral hydroureteronephrosis. No obstructing ureteral calculi are noted. This finding is likely secondary to extrinsic compression of the distal ureters by the distended rectum. 3. Mild atelectasis versus infiltrate at the right lung base. Radiation Dose CTDIVOL = (mGy): DLP = 1216.3 (mGy-cm) Dictated By: Urbano Leggett MD Signed By: Urbano Leggett MD Signed Date/Time: 06/14/20 0000 DD/ 5589 Discharge Plan Discharge Patient Disposition: Home Clinical Impression: Fecal impaction in rectum, Acute urinary retention, Creatinine elevation Condition: Stable Prescriptions: New cefdinir 300 mg capsule 300 mg PO BID 10 Days Qty: 20 RF: 0 No Action Amitiza 24 mcg capsule 24 mcg PO BID 30 Days Qty: 60 RF: 2 doxycycline hyclate [Vibramycin] 100 mg capsule 100 mg PO BID Qty: 20 RF: 0 Hold Instructions: Doctor's Order budesonide [Pulmicort] 0.5 mg/2 mL suspension for nebulization 0.5 mg INHALATION BID Qty: 120 RF: 2 Biofreeze (menthol) 4 % gel 1 applic TOPICAL TID PRN (Reason: pain) Qty: 118 RF: 0 sertraline 100 mg tablet 100 mg PO DAILY Qty: 30 RF: 2 trazodone 100 mg tablet See Rx Instructions .ROUTE .COMPLEX Qty: 90 RF: 2 quetiapine [Seroquel] 50 mg tablet 50 mg PO .HS Qty: 30 RF: 2 (DME) Coloplast Paste Paste See Rx Instructions .ROUTE .MEDSUPPLY Qty: 60 RF: 5 ProAir HFA 90 mcg/actuation HFA aerosol inhaler 2 puff INHALATION QID PRN (Reason: Shortness Of Breath) Qty: 8.5 RF: 2 nitroglycerin [Nitrostat] 0.4 mg tablet, sublingual 0.4 mg SUBLINGUAL Q5M PRN (Reason: Chest Pain) Qty: 100 RF: 2 Lasix 40 mg tablet 40 mg PO DAILY Qty: 90 RF: 3 Eliquis 5 mg tablet 5 mg PO BID Qty: 180 RF: 3 metoprolol tartrate 25 mg tablet 25 mg PO BID Qty: 180 RF: 3 multivitamin [Multiple Vitamins] Tablet 1 tab PO DAILY RF: 0 lactulose 20 gram/30 mL Solution 10 g PO DAILY PRN (Reason: constipation) Qty: 1200 RF: 0 Miralax 17 gram Powder In Packet 17 g PO DAILY Qty: 60 RF: 0 Discharge Orders: Discharge ED (Routine); Ordered 06/14/20 Ordered By: Juanito Shelton Referrals: Brisa Jensen, [employer] [Primary Care Provider] - Discharge Diet: As Directed Discharge Activity: Resume usual activity Patient Instructions: Miranda Catheter Care, Miranda Catheter Placement and Care (ED), Fecal Impaction (ED), Urinary Retention Activity Restrictions/Additional Instructions: Follow-up with primary care physician in 3 to 5 days. Have a primary care physician check creatinine levels. Drink plenty of fluids and stay hydrated. Case management should be contacting you in the next several days to set up an appointment with urology for urinary retention and to reassess need of Miranda catheter. Nurse will instruct you on Miranda catheter care. Take full course of antibiotic as prescribed. Continue taking all home medications as previously prescribed. Take the mag citrate that is sent home with you to help clear out bowels. Return to the ER or your medical provider if condition worsens. Please read and understand discharge instructions. If any questions, please ask. Coding Level of Care Code ED Water Filterer for [place] Fwd Exam Comprehensive
[2020-06-13 20:31] VITALS: PULSE 69; RESP 18; O2SAT 95
--- NOTE | 2020-06-13 20:40 | PC.NURSE ---
catheter placed, 1200ml urine out immediately, tubing clamped. Sangita AVILES notified.
--- NOTE | 2020-06-13 20:41 | PC.NURSE ---
bladder scan showing greater than 200
--- NOTE | 2020-06-13 20:50 | PC.NURSE ---
Bladder distention was noted, urinary catheter was placed and 1200mL came out. Catheter was clamped.
[2020-06-13 21:02] LABS: Bilirubin Urine Neg (Negative); Blood Urine 3+ (Negative); Glucose Urine UA Norm (Normal); Ketones Urine Negative (Negative); Leukocyte Esterase Urine Negative (Negative); Nitrate Urine Negative (Negative); Protein Urine Neg (Negative); Specific Gravity, Urine 1.015 (1.005-1.030); Urine Appearance Hazy (CLEAR); Urine Color Yellow (Yellow); Urobilinogen Urine Norm (Negative); pH Urine 5 (5-7)
[2020-06-13 21:12] LABS: Add Urine Culture? Yes; Bacteria Urine TRACE /hpf; Mucus Urine 1+ /hpf
[2020-06-13 21:42] LABS: Basophils % 0.3 %; Hemoglobin 10.7 g/dL (11.7-16.6); Lymphocytes # 1.1 10^3/uL (0.8-4.8); Lymphocytes % 10.9 %; Mean Corpuscular HGB Conc 31.5 g/dL (30.0-36.0); Mean Corpuscular Volume 85.6 fL (80-94); Mean Platelet Volume 9.9 fL (7.4-10.4); Monocytes # 0.6 10^3/uL (0.2-0.9); Monocytes % 5.4 %; Neutrophils # 8.73 10^3/uL (1.8-7.7); Neutrophils % 83.1 %; Nucleated Red Blood Cells % 0 %; Platelet Count 285 10^3/cmm (130-400); Red Blood Count 3.97 10^6/uL (4.1-5.3); Red Cell Distribution Width 14.7 % (12.1-15.1); White Blood Count 10.5 10^3/uL (4.0-10.0)
[2020-06-13 22:00] VITALS: BP 150/88; PULSE 64; RESP 16; O2SAT 97
[2020-06-13 22:31] LABS: Alanine Aminotransferase 7 U/L (0-41); Albumin Level 3.7 g/dL (3.5-5.2); Alkaline Phosphatase 95 IU/L (40-130); Aspartate Amino Transferase 11 U/L (0-40); Blood Urea Nitrogen 20 mg/dL (8-23); Calcium 9.6 mg/dL (8.5-10.5); Carbon Dioxide 32 mmol/L (22-29); Chloride 96 mmol/L (98-107); Globulin 3.9 g/dL (1.3-4.6); Glucose 159 mg/dL (65-115); Lipase 12 U/L (13-60); Osmolality Calculated 296 mOsm/kg (285-295); Sodium 140 mmol/L (136-145); Total Bilirubin 0.3 mg/dL (0.15-1.2); Total Protein 7.6 g/dL (6.6-8.7)
--- NOTE | 2020-06-13 23:20 | CTR_ITS ---
PROCEDURE INFORMATION: Exam: CT Abdomen And Pelvis Without Contrast Exam date and time: 06/13/2020 11:22 PM Age: 80 years old Clinical indication: Abnormal findings; Abnormal radiologic finding of the abdomen; Radiologic exam and body structure: Aas; Prior surgery; Surgery date: 6+ months; Surgery type: Hernia, l-sp; Patient HX: C/O fecal impaction - S/P enema; Additional info: Abdominal pain with fecal impaction TECHNIQUE: Imaging protocol: Computed tomography of the abdomen and pelvis without contrast. Radiation optimization: All CT scans at this facility use at least one of these dose optimization techniques: automated exposure control; mA and/or kV adjustment per patient size (includes targeted exams where dose is matched to clinical indication); or iterative reconstruction. COMPARISON: CT chest abd pel wo con 09/25/2019 5:36 PM RADIATION DOSE METRICS: Total DLP (mGy-cm): 1216.3 FINDINGS: Lungs: The left lung base is clear. Mild atelectasis versus infiltrate at the right lung base. Liver: 5 mm simple appearing cyst in the dome of the liver. No acute hepatic abnormality. Gallbladder and bile ducts: The gallbladder is surgically absent. Pancreas: The pancreas is normal in appearance. No pancreatic duct dilatation. Spleen: The spleen is normal in size and appearance. Adrenal glands: The adrenal glands appear within normal limits. Kidneys and ureters: There is mild bilateral hydroureteronephrosis. No obstructing ureteral calculi are noted. Stomach and bowel: Large volume of retained stool in the rectum, consistent with fecal impaction. Moderate retained stool demonstrated in the descending and sigmoid portions of the colon. The ascending and transverse portions of the colon appear relatively empty. No acute gastric abnormality demonstrated. The small bowel is unremarkable as demonstrated. Appendix: No evidence of appendicitis. Intraperitoneal space: No pneumoperitoneum. No significant fluid collection. Vasculature: The aorta is atherosclerotic. No aortic aneurysm. Lymph nodes: No pathologically enlarged lymph nodes are demonstrated. Urinary bladder: There is a Miranda catheter in the urinary bladder. The urinary bladder is empty secondary to the presence of the Miranda catheter. Reproductive: Unremarkable as visualized. Bones/joints: Degenerative spine changes are noted. Postop change of the lumbar spine. Soft tissues: The soft tissues appear unremarkable. CT/CT abdomen pelvis wo con [id number] IMPRESSION: 1. Large volume of retained stool in the rectum, consistent with fecal impaction. There is intraluminal air surrounding the retained stool, accounting for the previous plain radiographic findings. There is no pneumatosis or other acute abnormality of the rectum. 2. There is mild bilateral hydroureteronephrosis. No obstructing ureteral calculi are noted. This finding is likely secondary to extrinsic compression of the distal ureters by the distended rectum. 3. Mild atelectasis versus infiltrate at the right lung base. Radiation Dose CTDIVOL = (mGy): DLP = 1216.3 (mGy-cm)
[2020-06-14] VITALS: PULSE 58; RESP 17; O2SAT 94
[2020-06-14] MEDS: potassium chloride ER 20 mEq Tablet PO (00:01)
--- NOTE | 2020-06-14 01:37 | PC.NURSE ---
quarter size small round bowel movement at 0125 after enema.
[2020-06-14 01:56] VITALS: RESP 16; O2SAT 95
[2020-06-14] MEDS: morphine 4 mg/mL SDV 1 mL 2 MG IVP (01:56)
[2020-06-14] MEDS: ondansetron 2 mg/ML SDV 2 mL 4 MG IVP (01:56)
[2020-06-14 02:00] VITALS: BP 106/48; PULSE 64; RESP 16; O2SAT 95
--- NOTE | 2020-06-14 02:03 | PC.NURSE ---
Patient passed medium size bowel movement.
--- NOTE | 2020-06-14 02:11 | PC.NURSE ---
Patient placed on 3 Liters nasal cannula for low oxygen saturation of 84% after morphine. Patient states he is normally on oxygen when he sleeps.
[2020-06-14] MEDS: cefTRIAXone 1,000 MG in sodium chloride 0.9% (plus) 50 ML 250 MG IV (02:49)
[2020-06-14] MEDS: magnesium citrate Btl 296 mL PO (02:51)
[2020-06-14] MEDS: sodium chloride 0.9% 500 ML 999 ML IV (03:15)
[2020-06-14 04:00] VITALS: BP 101/72; PULSE 59; RESP 16; O2SAT 94
[2020-06-14 04:51] VITALS: BP 151/81; PULSE 104; RESP 16; TEMP 36.7; O2SAT 98
--- NOTE | 2020-06-16 10:53 | DCPLANNER ---
housing property manager had message to schedule a follow up appointment for patient with Dr. Chaney. housing property manager called the office of Dr. Chaney, spoke with Ivana, gave clinic patients information. housing property manager was told that patients information would be printed and reviewed. Clinic will call patient with appointment information.
--- NOTE | 2020-06-19 10:51 | DCPLANNER ---
Patient has a follow up appointment scheduled for Friday, June 26, [address] at 8:[address] Chaney. Clinic will call patient with appointment information.
--- NOTE | 2020-08-11 08:21 | DCPLANNER ---
Patient had a follow up appointment scheduled for 06.26.[address] Chaney - patient did attend appointment.
--- NOTE | 2020-09-10 15:46 | PC.RESP ---
PULMONARY REHAB INFORMATION SENT TO PATIENT.
== END 2020-06-14 05:38 | disposition home or self-care (01) ==
PROVIDERS: Emergency Provider Physician Assistant; PCP Nurse Practitioner
DX: K59.00 Constipation, unspecified (principal); R33.9 Retention of urine, unspecified; R79.89 Other specified abnormal findings of blood chemistry; Z79.01 Long term (current) use of anticoagulants; Z87.891 Personal history of nicotine dependence; E78.5 Hyperlipidemia, unspecified; I11.0 Hypertensive heart disease with heart failure; I50.30 Unspecified diastolic (congestive) heart failure; J44.9 Chronic obstructive pulmonary disease, unspecified; I25.10 Atherosclerotic heart disease of native coronary artery without angina pectoris; Z86.718 Personal history of other venous thrombosis and embolism; Z95.1 Presence of aortocoronary bypass graft
CPT/HCPCS: 12345; 51702; 74022; 74176; 80053; 81001; 83690; 85025; 87040; 87086; 96365; 96375; 99284; J0696; J2270; J2405; J7040

== ENCOUNTER 2020-06-17 21:13 | Inpatient (IN) | payer MEDICARE, MEDICAID, SELFPAY ==
[2020-06-17 21:27] VITALS: BP 159/80; PULSE 69; RESP 15; TEMP 37.1; O2SAT 97; BMI 27.1
--- NOTE | 2020-06-17 21:31 | XR_ITS ---
WS: [id number] XR chest 1V portable [id number] REASON FOR EXAM: dyspnea FINDINGS: The chest is unchanged compared to 03/17/2020. (Except for absence of left arm PICC line) Previous sternotomy, coronary artery bypass surgery. The heart is enlarged. Thoracic aorta is signifi cantly tortuous with no aneurysmal dilatation. No active pulmonary parenchymal or pleural disease is identified. Moderate degenerative changes in th e right shoulder and the thoracic spine. XR/XR chest 1V portable [id number] IMPRESSION: No acute chest abnormality.
--- NOTE | 2020-06-17 21:32 | ED_ITS ---
HPI - Abdominal Pain General: Chief Complaint: Abdominal Pain Stated Complaint: abd pain, constipation and cather issues Time Seen by Provider: 06/17/20 21:19 Source: patient and EMS Mode of arrival: EMS Limitations: no limitations History of Present Illness: HPI narrative: Mr. Rios is a nice 80-year-old male brought in by EMS with report of abdominal pain and vomiting. Patient states he was recently in this hospital for similar complaints. Patient states that he has not had a bowel movement in over a week. He only reports one episode of vomiting which was yesterday. He is not believed to have had a fever. Denies any other complaints such as headache, chest pain, shortness of breath, flank pain, musculoskeletal symptoms or otherwise. EMS also reports the patient is living in [facility]. They state the patient apparently gives his checked a woman that comes in checks on him once a day and give some food. They state. He is living and is essentially a dump. They state the patient claims that he sits in his room with his gun to protect his things as the female that checks on him has a daughter who will try to steal from him. EMS reports the patient's bedroom was covered in trash and they do not see how the patient could rest or care for himself of these conditions. Associated Symptoms: Reports constipation, nausea and vomiting; Denies chills, coffee ground emesis, GI cramping, diarrhea, dysuria, fever(s), heartburn, hematochezia, hematuria, hematemesis, melena and syncope Review of Systems Const: Denies: fever(s), chills, body aches, fatigue, malaise or diaphoresis Eyes: Denies: change in vision, blurry vision, photophobia, eye discomfort, eye discharge, eye redness or yellow eyes ENMT: Denies: throat pain, odynophagia, hoarseness, swelling of lips/tongue, ear or mastoid pain, ear discharge, change in hearing or nasal discharge Card: Denies: chest pain, palpitations, irregular heart rhythm, edema, lightheadedness, syncope, pre-syncope, dyspnea on exertion or orthopnea Resp: Denies: dyspnea, productive cough, non-productive cough, wheezing, hemoptysis or chest congestion GI: Reports: abdominal pain, nausea, vomiting and constipation; Denies: hematemesis, coffee ground emesis, heartburn, diarrhea, GI cramping, hematochezia or melena : Denies: flank pain, dysuria, urinary frequency, urinary urgency or hematuria Musc: Denies: neck pain, back pain, extremity pain, extremity swelling, joint pain, joint swelling, joint redness, joint warmth or joint stiffness Skin/Breast: Denies: rash, pruritus, erythema, skin pain or skin tenderness Neuro: Denies: headache(s), numbness in extremities, weakness in extremities, sensory changes, lack of coordination, difficulty walking, dizziness, vertigo, confusion, Slurred speech present or seizure-like activity Jm/Lymph: Denies: easy bruising, easy bleeding, petechiae, purpura or enlarged lymph nodes All/Imm: Denies: urticaria, throat swelling, tongue swelling, facial swelling or acute wheezing PFSH ED PFSH: Medical History Atherosclerotic heart disease of [place] coronary artery without angina pectoris Benign essential hypertension with target blood pressure below 140/90 CAD (coronary artery disease) Chronic constipation Chronic prescription opiate use 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 Diastolic heart failure DVT (deep venous thrombosis) Dyslipidemia Generalized anxiety disorder 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 History of DVT (deep vein thrombosis) Hx of cervical spinal arthrodesis Hypertension Intervertebral disc disorder with radiculopathy of lumbosacral region Lower abdominal pain Lumbar disc disease Lumbar spondylosis Lumbar stenosis with neurogenic claudication Major depressive disorder, recurrent severe without psychotic features Peripheral vascular disease Scoliosis of lumbar spine Skin tear Sleep apnea, unspecified SOB (shortness of breath) Unspecified dementia without behavioral disturbance Surgical History History of cervical spinal surgery 1979 [facility] C6-C7 laminectomy/fusion/fixation History of heart artery stent (~2006) History of heart bypass surgery (~2007) History of hernia surgery 4x History of knee surgery Right History of lumbar surgery [facility]. L3-L4, L4-L5, L5-S1 decompression History of uvulopalatopharyngoplasty Hx of CABG Hx of cholecystectomy Family History Father Diabetes Mother Colon cancer Hypertension Social History Smoking and tobacco status: former smoker Second hand smoke exposure: No Smoking risk assessment/counseling performed?: No Alcohol intake: never Desire information about alcohol rehabilitation?: No Counseling given: No Desire information about substance/drug rehabilitation?: No Counseling given: No Adopted: No Caregiver/support person: Yes Lives independently: No Household members: significant other Marital status: Number of children: 5 service: No Current occupational status: disabled History of recent travel: No Current gender identity: Male Physical Exam Const: COMMON NORMALS: no acute distress, patient oriented x3, no limitations and alert GENERAL APPEARANCE: cooperative HENMT: COMMON NORMALS: normocephalic, atraumatic, external ears normal, EAC's normal and Normal external nose present HEAD & SCALP: normal to inspection, normocephalic and atraumatic FACE & SINUS: normal facial exam and face symmetric NOSE: Normal external nose present and Normal nares present EXTERNAL EAR: Yes external ears normal EXTERNAL AUDITORY CANAL: EAC's normal MOUTH: Normal oral and palatal mucosa present, lip normal and tongue normal Eye: COMMON NORMALS: Equal, round and reactive pupils present and conjunctivae normal GENERAL EYE: appearance normal, both eyes and all related structures ALIGNMENT: Yes alignment normal PERIORBITAL: periorbital findings normal EYELID: eyelids normal CONJUNCTIVA: Yes conjunctivae normal SCLERA: sclerae normal PUPIL: Yes Equal, round and reactive pupils present Neck/C-Spine: COMMON NORMALS: full ROM, no lymphadenopathy, supple, no meningeal signs and no JVD GENERAL: Yes normal visual inspection and Yes trachea midline Chest: COMMONS NORMALS: normal inspection of the chest and normal palpation of entire chest wall Resp: COMMON NORMALS: normal respiratory effort, No retractions, No use of accessory muscles and clear to auscultation bilaterally EFFORT & INSPECTION: Yes able to speak in complete sentences and Yes symmetric chest movement AUSCULTATION: clear to auscultation bilaterally, no crackles, no rales, no rhonchi and no wheezes Cardio: COMMON NORMALS: no JVD, regular rate, regular rhythm, S1 normal heart sound present and S2 normal heart sound present RATE: regular rate RHYTHM: regular rhythm HEART SOUNDS: S1 normal heart sound present, S2 normal heart sound present, no click, no gallops, no murmurs and no rubs GI: COMMON NORMALS: Soft to palpation and No hepatosplenomegaly present PALPATION: Yes Soft to palpation, Yes Tenderness to palpation present (GI) (Moderate tenderness to palpation diffusely.), No Guarding due to palpation present (GI), No Rigid due to palpation, Yes No hepatosplenomegaly present, No Hernia present, No Palpable mass present and No Pulsatile mass present : COMMON NORMALS: Yes no CVA tenderness BLADDER/KIDNEY EXAM: Yes no CVA tenderness Back/Pelvis: COMMON NORMALS: no CVA tenderness, thoracic and lumbar spine normal to inspection, no thoracic nor lumbar tenderness and thoraco-lumbar ROM normal Extremity: COMMON NORMALS: normal to inspection, full ROM, capillary refill normal, no joint enlargement, no clubbing, cyanosis or edema and no calf tenderness Neuro: COMMON NORMALS: patient oriented x3, CN's II-XII intact bilaterally, moves all extremities, no focal motor deficits and no sensory deficits noted SENSORIUM/ORIENTATION: Yes alert MENINGEAL SIGNS: Yes no meningeal signs SPEECH: speech normal Psych: COMMON NORMALS: mental status grossly normal, Normal thought process present, cooperative, normal affect, speech normal and activity/motor behavior normal SPEECH: Yes normal speech THOUGHT PROCESS: Normal thought process present Skin: COMMON NORMALS: no rashes or lesions noted, turgor normal, no jaundice, no petechiae and no mottling GENERAL SKIN EXAM: no rashes or lesions noted and turgor normal Course Vital Signs: Vital signs: Vital Signs Temperature 98.2 F 06/18/20 02:11 Pulse Rate 69 06/18/20 02:11 Respiratory Rate 18 06/18/20 02:11 Blood Pressure 124/71 06/18/20 02:11 Pulse Oximetry 95 06/18/20 02:11 MDM - Abdominal Pain MDM Narrative: Medical decision making narrative: Anurag is a nice 80-year-old male comes in with abdominal pain and one episode of vomiting yesterday. CT scan shows enteritis versus early or evolving small bowel obstruction. Patient is very constipated but here he has not vomited. I have endorsed the case to Dr. Bruner, he agrees to come see the patient. He would like an NG tube placed as well. NG tube was placed but it coiled at the GE junction and cannot be passed on into the stomach. This was reviewed with Dr. Bruner and he agrees to hold off further attempts at NG tube placement at this time. He would like the tube that is in place to be pulled. Lab Data: Attestation: I reviewed the patient's lab results. Labs: Lab Results 06/17/20 06/17/20 06/17/20 Range/Units 21:57 21:57 21:57 WBC 9.8 (4.0-10.0) 10^3/ uL RBC 4.13 (4.1-5.3) 10^6/u L Hgb 11.6 L (11.7-16.6) g/dL Hct 35.0 L (42.0-52.0) % MCV 84.7 (80-94) fL MCH 28.1 (28.0-34.0) pg MCHC 33.1 (30.0-36.0) g/dL RDW 14.6 (12.1-15.1) % Plt Count 278 (130-400) 10^3/c mm MPV 10.1 (7.4-10.4) fL Neut % (Auto) 67.8 % Lymph % (Auto) 19.6 % [place] % (Auto) 8.5 % Eos % (Auto) 3.1 % Baso % (Auto) 0.8 % Neut # (Auto) 6.65 (1.8-7.7) 10^3/u L Lymph # (Auto) 1.9 (0.8-4.8) 10^3/u L [place] # (Auto) 0.8 (0.2-0.9) 10^3/u L Eos # (Auto) 0.3 (0.0-0.8) 10^3/u L Baso # (Auto) 0.1 (0.0-0.1) 10^3/u L Nucleated RBC % (a uto) 0 % Nucleated RBCs # 0.0 /100WBC Sodium 138 (136-145) mmol/L Potassium 3.1 L (3.5-5.1) mmol/L Chloride 91 L (98-107) mmol/L Carbon Dioxide 36 H (22-29) mmol/L Anion Gap 14.1 (5-19) BUN 17 (8-23) mg/dL Creatinine 1.1 (0.7-1.2) mg/dL GFR Calculation Not Reportable Glucose 142 H (65-115) mg/dL Calculated Osmolal ity 290 (285-295) mOsm/k g Calcium 9.6 (8.5-10.5) mg/dL Magnesium (1.7-2.3) mg/dL Total Bilirubin 0.4 (0.15-1.2) mg/dL AST 14 (0-40) U/L ALT 8 (0-41) U/L Alkaline Phosphata se 93 (40-130) IU/L Total Protein 7.8 (6.6-8.7) g/dL Albumin 3.6 (3.5-5.2) g/dL Globulin 4.2 (1.3-4.6) g/dL Lipase 15 (13-60) U/L Urine Color Yellow (Yellow) Urine Appearance Hazy A (CLEAR) Urine pH 5 (5-7) Ur Specific Gravit y 1.020 (1.005-1.030) Urine Protein Neg (Negative) Urine Glucose (UA) Norm (Normal) Urine Ketones 1+ H (Negative) Urine Blood 3+ H (Negative) Urine Nitrate Negative (Negative) Urine Bilirubin Neg (Negative) Urine Urobilinogen Norm (Negative) mg/dL Ur Leukocyte Kamini ase Trace H (Negative) Urine RBC 80-100 H (0-2) /hpf Urine WBC None (0-5) /hpf Ur Squamous Epith Cells 0-4 H (0-5) /hpf Ur Transition Epit h Cell 0-4 /hpf Amorphous Sediment Not Reportable Urine Bacteria 1+ H (NONE) /hpf Hyaline Casts 25-40 H /lpf 06/17/20 Range/Units 21:57 WBC (4.0-10.0) 10^3/ uL RBC (4.1-5.3) 10^6/u L Hgb (11.7-16.6) g/dL Hct (42.0-52.0) % MCV (80-94) fL MCH (28.0-34.0) pg MCHC (30.0-36.0) g/dL RDW (12.1-15.1) % Plt Count (130-400) 10^3/c mm MPV (7.4-10.4) fL Neut % (Auto) % Lymph % (Auto) % [place] % (Auto) % Eos % (Auto) % Baso % (Auto) % Neut # (Auto) (1.8-7.7) 10^3/u L Lymph # (Auto) (0.8-4.8) 10^3/u L [place] # (Auto) (0.2-0.9) 10^3/u L Eos # (Auto) (0.0-0.8) 10^3/u L Baso # (Auto) (0.0-0.1) 10^3/u L Nucleated RBC % (a uto) % Nucleated RBCs # /100WBC Sodium (136-145) mmol/L Potassium (3.5-5.1) mmol/L Chloride (98-107) mmol/L Carbon Dioxide (22-29) mmol/L Anion Gap (5-19) BUN (8-23) mg/dL Creatinine (0.7-1.2) mg/dL GFR Calculation Glucose (65-115) mg/dL Calculated Osmolal ity (285-295) mOsm/k g Calcium (8.5-10.5) mg/dL Magnesium 2.1 (1.7-2.3) mg/dL Total Bilirubin (0.15-1.2) mg/dL AST (0-40) U/L ALT (0-41) U/L Alkaline Phosphata se (40-130) IU/L Total Protein (6.6-8.7) g/dL Albumin (3.5-5.2) g/dL Globulin (1.3-4.6) g/dL Lipase (13-60) U/L Urine Color (Yellow) Urine Appearance (CLEAR) Urine pH (5-7) Ur Specific Gravit y (1.005-1.030) Urine Protein (Negative) Urine Glucose (UA) (Normal) Urine Ketones (Negative) Urine Blood (Negative) Urine Nitrate (Negative) Urine Bilirubin (Negative) Urine Urobilinogen (Negative) mg/dL Ur Leukocyte Kamini ase (Negative) Urine RBC (0-2) /hpf Urine WBC (0-5) /hpf Ur Squamous Epith Cells (0-5) /hpf Ur Transition Epit h Cell /hpf Amorphous Sediment Urine Bacteria (NONE) /hpf Hyaline Casts /lpf Imaging Data ^: CXR: Attestation: I personally reviewed and interpreted this imaging study as follows: My impression: No acute cardiopulmonary findings. CT Abd/Pel: Radiologist's impression: [facility] [address] [place] [address] CT Scan Report Signed Patient: Anurag Rios Unit #: [id number] : 1940 Age/Sex: 80 / M ADM Date: 06/17/20 Loc: ER Room/Bed: Attending Dr: Ordering Provider/Ordering MD: Maria Canela DO Date of Service: 06/17/20 Procedure(s): CT abdomen pelvis w con* [id number] Accession Number(s): [id number] Report Number: [id number] PROCEDURE INFORMATION: Exam: CT Abdomen And Pelvis With Contrast Exam date and time: 06/17/2020 9:57 PM Age: 80 years old Clinical indication: Abdominal pain; Generalized; Prior surgery; Surgery type: Hernia. Lspine. ; Patient HX: General abd pain with constipation. TECHNIQUE: Imaging protocol: Computed tomography of the abdomen and pelvis with intravenous contrast. Radiation optimization: All CT scans at this facility use at least one of these dose optimization techniques: automated exposure control; mA and/or kV adjustment per patient size (includes targeted exams where dose is matched to clinical indication); or iterative reconstruction. Contrast material: OMNI 300; Contrast volume: 95 ml; Contrast route: INTRAVENOUS (IV); COMPARISON: CT abdomen pelvis wo con [id number] 06/13/2020 11:26 PM RADIATION DOSE METRICS: Total DLP (mGy-cm): 996.49 FINDINGS: Lungs: Right lower lobe tree-in-bud type particular nodular densities may reflect an infectious process such as an atypical mycobacterial infection. Liver: Normal. No mass. Gallbladder and bile ducts: Mild intrahepatic biliary dilation, somewhat more prominent compared to prior exam. Cholecystectomy. Pancreas: Normal. No ductal dilation. Spleen: Normal. No splenomegaly. Adrenal glands: Normal. No mass. Kidneys and ureters: Bilateral benign renal cysts, negative for follow-up advised. Stomach and bowel: Several borderline dilated small bowel loops with fluid levels measuring up to 3 cm without transition point may reflect an evolving obstruction or perhaps an enteritis depending on the clinical scenario. Constipation. Appendix: No evidence of appendicitis. Intraperitoneal space: Unremarkable. No free air. No significant fluid collection. Vasculature: Unremarkable. No abdominal aortic aneurysm. Lymph nodes: Unremarkable. No enlarged lymph nodes. Urinary bladder: Miranda catheter in the urinary bladder with some air presumed iatrogenic. Reproductive: Unremarkable as visualized. Bones/joints: Unremarkable. No acute fracture. Soft tissues: Unremarkable. CT/CT abdomen pelvis w con* [id number] IMPRESSION: 1. Several borderline dilated small bowel loops with fluid levels measuring up to 3 cm without transition point may reflect an evolving obstruction or perhaps an enteritis depending on the clinical scenario. 2. Miranda catheter in the urinary bladder with some air presumed iatrogenic. 3. Constipation. 4. Cholecystectomy. 5. Right lower lobe tree-in-bud type particular nodular densities may reflect an infectious process such as an atypical mycobacterial infection. 6. Mild intrahepatic biliary dilation, somewhat more prominent compared to prior exam. 7. Bilateral benign renal cysts, negative for follow-up advised. COMMENTS: Consistent with the [employer]'s Incidental Findings Committee white paper (J Am Lolita Radiol 2018): Any incidental renal lesion less than 1 cm or classified as too small to characterize, or any incidental cystic renal lesion characterized as simple-appearing, is likely benign. No follow-up imaging is recommended for these lesions per consensus recommendations based on imaging criteria. Radiation Dose CTDIVOL = (mGy): DLP = 996.49 (mGy-cm) Dictated By: Anurag Pena MD Signed By: Anurag Pena MD Signed Date/Time: 06/17/20 230 DD/ [id number] Discharge Plan Discharge Patient Disposition: Placed in Observation Admit Provider: Moody Bruner Clinical Impression: Partial small bowel obstruction Abdominal pain Qualifiers: Abdominal location: generalized Qualified Code(s): R10.84 - Generalized abdominal pain Coding Level of Care Code ED Fulfillment Mail Clerk for Chg Fwd Exam Comprehensive
[2020-06-17 21:38] VITALS: BP 136/73; PULSE 66; RESP 16; O2SAT 98
[2020-06-17 22:09] LABS: Basophils # 0.1 10^3/uL (0.0-0.1); Basophils % 0.8 %; Eosinophils # 0.3 10^3/uL (0.0-0.8); Eosinophils % 3.1 %; Hemoglobin 11.6 g/dL (11.7-16.6); Lymphocytes # 1.9 10^3/uL (0.8-4.8); Lymphocytes % 19.6 %; Mean Corpuscular HGB Conc 33.1 g/dL (30.0-36.0); Mean Corpuscular Hemoglobin 28.1 pg (28.0-34.0); Mean Corpuscular Volume 84.7 fL (80-94); Mean Platelet Volume 10.1 fL (7.4-10.4); Monocytes # 0.8 10^3/uL (0.2-0.9); Monocytes % 8.5 %; Neutrophils # 6.65 10^3/uL (1.8-7.7); Neutrophils % 67.8 %; Nucleated Red Blood Cells % 0 %; Platelet Count 278 10^3/cmm (130-400); Red Blood Count 4.13 10^6/uL (4.1-5.3); Red Cell Distribution Width 14.6 % (12.1-15.1); White Blood Count 9.8 10^3/uL (4.0-10.0)
--- NOTE | 2020-06-17 22:20 | PC.NURSE ---
Patient comes via EMS. This is the second time he has come in a week. He has been naked each time. Patient states his research lab assistant does not take care of him at all and he would like to go to a [place] [facility]. When asked about his research lab assistant he states she has lived with him for over 30 years and she could be called his girlfriend. When he was here on Monday he told us she was his girlfriend but they sleep in seperate rooms. Patient states now his caretakers daughter has moved in with them and she is either doing pills or booze. Patient states he is not able to get around at home. He states his research lab assistant makes him eat meals on wheels meals even though he does not like them and ends up puking them up. Patient is alert and oriented at this time but has been diagnosed with dementia.
[2020-06-17 22:22] LABS: Urine Color Yellow (Yellow)
[2020-06-17 22:23] LABS: Bilirubin Urine Neg (Negative); Blood Urine 3+ (Negative); Glucose Urine UA Norm (Normal); Ketones Urine 1+ (Negative); Leukocyte Esterase Urine Trace (Negative); Nitrate Urine Negative (Negative); Protein Urine Neg (Negative); Urine Appearance Hazy (CLEAR); Urobilinogen Urine Norm (Negative); pH Urine 5 (5-7)
[2020-06-17 22:24] LABS: Hyaline Casts Urine 25-40 /lpf
[2020-06-17 22:25] LABS: Add Urine Culture? Yes; Alanine Aminotransferase 8 U/L (0-41); Albumin Level 3.6 g/dL (3.5-5.2); Alkaline Phosphatase 93 IU/L (40-130); Aspartate Amino Transferase 14 U/L (0-40); Bacteria Urine 1+ /hpf; Blood Urea Nitrogen 17 mg/dL (8-23); Calcium 9.6 mg/dL (8.5-10.5); Carbon Dioxide 36 mmol/L (22-29); Chloride 91 mmol/L (98-107); Globulin 4.2 g/dL (1.3-4.6); Glucose 142 mg/dL (65-115); Lipase 15 U/L (13-60); Osmolality Calculated 290 mOsm/kg (285-295); RBC Urine 80-100 /hpf (0-2); Sodium 138 mmol/L (136-145); Squamous Epithelial Cell Urine 0-4 /hpf (0-5); Total Bilirubin 0.4 mg/dL (0.15-1.2); Total Protein 7.8 g/dL (6.6-8.7); Transitional Epi Cells Urine 0-4 /hpf
[2020-06-17 22:36] LABS: Anion Gap 14.1 (5-19); Potassium 3.1 mmol/L (3.5-5.1)
[2020-06-17 23:10] LABS: Magnesium 2.1 mg/dL (1.7-2.3)
[2020-06-17] MEDS: iohexol 300 mg/mL 100 mL Btl IV (23:19)
[2020-06-17] MEDS: potassium chloride premix 100 ML 50 MEQ IV (23:54)
[2020-06-17 23:56] VITALS: BP 138/70; PULSE 64; RESP 16; O2SAT 95
[2020-06-18] VITALS (11 sets, daily range): BP systolic 121–181; BP diastolic 59–84; PULSE 56–80; RESP 16–18; TEMP 36.8–37.1; O2SAT 92–97
--- NOTE | 2020-06-18 00:15 | P.HP_ITS ---
Providers/Chief Complaint Primary Care Provider: Brisa Jensen, LICENSING SERVICES CLERK-C Chief Complaint: abd pain, constipation and cather issues History of Present Illness Anurag Rios is a 80 year old male who has history of coronary disease, diastolic congestive heart failure, underlying dementia, chronic back pain, right leg DVT, COPD, presented to the hospital with chief complaint constipation. Patient is stating that his last bowel movement was 7 days ago, patient having abdominal discomfort, cramps. He is denying emesis but is e ndorsing nausea. He has not eaten properly in last 7 days. He is not sure about his medications but stating that he is compliant with them. He is worried that his caregiver is stealing stuff from him, when EMS went inside his home they found trash everywhere and he told them that sometimes he sits with a gun in order to avoid the Stealth. Diagnosis in the ER revealed partial small bowel obstruction, no leukocytosis, hemodynamically stable, potassium 3.1, CT abdomen revealed distended stomach with fluid level without transition point, constipation, normal transaminases however intrahepaticductal dilation noted, hematuria most likely traumatic Miranda placement Previously he was admitted for management of repeated bacteremia with staphylococcal microorganisms(initially after Zyvox treatment) for which he required PICC line and 6-week vancomycin regimen after, transesophageal echo showed mitral valve thickening Review of Systems Const: Reports: chills, body aches, change in appetite, change in weight and fatigue; Denies: fever(s) Eyes: Denies: change in vision ENMT: Denies: throat pain Card: Denies: chest pain Resp: Denies: dyspnea GI: Reports: abdominal pain, nausea and constipation; Denies: vomiting or diarrhea : Denies: flank pain Musc: Denies: neck pain Skin/Breast: Reports: lesions, changes in skin color, dry skin and striae Neuro: Denies: headache(s) Psych: Reports: change in appetite and irritability Endo: Reports: cold intolerance; Denies: polyuria Jm/Lymph: Denies: easy bruising All/Imm: Denies: urticaria Medications/Allergies Home Medications Medication Instructions Recorded Confirmed Last Taken Type multivitamin [Multiple Vitamins] 1 tab PO DAILY 09/25/19 06/16/20 Unknown History albuterol sulfate 90 mcg/actuation 2 puff INHALATION QID PRN #8.5 gm 10/26/19 06/16/20 03/06/20 Rx aerosol inhaler ostomy supplies #60 gm 12/10/19 06/16/20 Unknown Rx nitroglycerin 0.4 mg sublingual 0.4 mg SUBLINGUAL Q5M PRN #100 tab 01/20/20 06/16/20 03/07/20 Rx tablet Miralax 17 g PO DAILY #60 ea 03/18/20 06/16/20 Unknown Rx lactulose 10 g PO DAILY PRN #1200 ml 03/18/20 06/16/20 Unknown Rx budesonide 0.5 mg/2 mL suspension 0.5 mg INHALATION BID #120 ml 04/03/20 06/16/20 Unknown Rx for nebulization lubiprostone 24 mcg capsule 24 mcg PO BID 30 Days #60 cap 04/03/20 06/16/20 U nknown Rx menthol 4 % topical gel 1 applic TOPICAL TID PRN #118 ml 04/03/20 06/16/20 Unknown Rx quetiapine 50 mg tablet 50 mg PO .HS #30 tab 04/27/20 06/16/20 Unknown Rx sertraline 100 mg tablet 100 mg PO DAILY #30 tab 04/27/20 06/16/20 Unknown Rx trazodone 100 mg tablet See Rx Instructions .ROUTE 04/27/20 06/16/20 Unknown Rx .COMPLEX #90 tab furosemide 40 mg tablet 40 mg PO DAILY #90 tab 06/08/20 06/16/20 Unknown Rx apixaban 5 mg tablet 5 mg PO BID #180 tab 06/12/20 06/16/20 Unknown Rx metoprolol tartrate 25 mg tablet 25 mg PO BID #180 tab 06/12/20 06/16/20 Unknown Rx cefdinir 300 mg PO BID 10 Days #20 cap 06/14/20 06/16/20 Unknown Rx Allergies Allergy/AdvReac Type Severity Reaction Status Date / Time hydromorphone Allergy Mild hives Verified 04/14/20 14:09 PFSH Acute PFSH: Medical History Atherosclerotic heart disease of [place] coronary artery without angina pectoris Benign essential hypertension with target blood pressure below 140/90 CAD (coronary artery disease) Chronic constipation Chronic prescription opiate use 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 Diastolic heart failure DVT (deep venous thrombosis) Dyslipidemia Generalized anxiety disorder 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 History of DVT (deep vein thrombosis) Hx of cervical spinal arthrodesis Hypertension Intervertebral disc disorder with radiculopathy of lumbosacral region Lower abdominal pain Lumbar disc disease Lumbar spondylosis Lumbar stenosis with neurogenic claudication Major depressive disorder, recurrent severe without psychotic features Peripheral vascular disease Scoliosis of lumbar spine Skin tear Sleep apnea, unspecified SOB (shortness of breath) Unspecified dementia without behavioral disturbance Surgical History History of cervical spinal surgery 1979 [facility] C6-C7 laminectomy/fusion/fixation History of heart artery stent (~2006) History of heart bypass surgery (~2007) History of hernia surgery 4x History of knee surgery Right History of lumbar surgery [facility]. L3-L4, L4-L5, L5-S1 decompression History of uvulopalatopharyngoplasty Hx of CABG Hx of cholecystectomy Family History Father Diabetes Mother Colon cancer Hypertension Social History Smoking and tobacco status: former smoker Second hand smoke exposure: No Smoking risk assessment/counseling performed?: No Alcohol intake: never Desire information about alcohol rehabilitation?: No Counseling given: No Desire information about substance/drug rehabilitation?: No Counseling given: No Adopted: No Caregiver/support person: Yes Lives independently: No Household members: significant other Marital status: Number of children: 5 service: No Current occupational status: disabled History of recent travel: No Current gender identity: Male Vitals/I&O/Wt Last Vital Signs Temp 98.8 F 06/17/20 21:27 Pulse 64 06/17/20 23:56 Resp 16 06/17/20 23:56 BP 138/70 06/17/20 23:56 Pulse Ox 95 06/17/20 23:56 Weight last 48 hrs Weight 90.718 kg Physical Exam Narrative: EXAM NARRATIVE: elderly male Unkempt appearance Kept complaining about feeling cold, he was not wearing any shirt or undergarments, Poor hygiene, multiple fecal stain on his legs Left lower extremity swollen as compared to right 1+ pitting edema S1, S2, no murmur appreciated Clinically looks dehydrated Abdomen soft mild tenderness on deep palpation in mid epigastric region otherwise no signs of peritonitis bowel sounds hyperactive EOMI, PERRLA No neurological deficit Appropriate mood and affect Onychomycosis and multiple fecal staining on legs Data : 06/17/20 21:57 06/17/20 21:57 A&P Assessment and plan (1) Constipation: Status: Acute (2) Partial small bowel obstruction: Status: Acute (3) Hypokalemia: Status: Acute (4) Dehydration: Status: Acute (5) Hematuria: Status: Acute Additional A&P Information Severe constipation Partial small bowel obstruction with air-fluid level, stomach filled with fluid Requested NG tube placement N.p.o. No signs of enteritis, no systemic inflammatory signs Would avoid antibiotics Would use enema, lactulose, MiraLAX, senna S regimen Avoid narcotics Hypokalemia secondary to poor p.o. intake and use of Lasix Hold Lasix Potassium repleted Hematuria most likely traumatic Miranda placement repeat UA after removal of Miranda catheter and voiding trial Dehydration secondary to poor p.o. intake: His last meal was a week ago Currently n.p.o. on maintenance fluid Left leg swelling, his DVT was diagnosed on 01/08/2018 and right leg since then he has been on Eliquis, I would request Doppler of left extremity, hold Eliquis at this point and initiate Lovenox Diastolic congestive heart failure no acute exacerbation, no orthopnea PND clinically euvolemic N.p.o. DVT prophylaxis not indicated currently he has been taking Eliquis for DVT Goals of care discussed with the patient, he is endorsing full code however review of records revealed he was DNR/DNI this was discussed with common-law who is also his caregiver who endorsed that this was his directive prior to having significant dementia, kindly readdress in the morning Attestations Medical Necessity Statement*: I am anticipating with partial small obstruction and NG tube placement he might need less than 2 midnights in the hospital for placement to a long-term rehab or [place] [facility] Time Spent in Patient Care: (>than 50% of time spent in counselling and/or direct pt care on unit) . 50mins Coding Level of Care Code Acute Plaster Pattern Caster for [facility] Fwd Diagnoses Constipation K59.00 Partial small bowel obstruction K56.600 Hypokalemia E87.6 Dehydration E86.0 Hematuria R31.9
--- NOTE | 2020-06-18 01:01 | XR_ITS ---
WS: [id number] XR chest 1V portable [id number] REASON FOR EXAM: NG tube placement FINDINGS: Nasogastric tube has been placed. The tip would appear to overlie the distal most esophagus or possib ly gastroesophageal junction. No other interval change compared to the examination of earlier today. XR/XR chest 1V portable [id number] IMPRESSION: Position of nasogastric tube as above. Approximately 3 to 4 cm of advancement w ould be appropriate.
--- NOTE | 2020-06-18 01:48 | PC.NURSE ---
Nasogastric tube insertion attempted. Patient tolerated it well. Upon x-ray patient has a hiatal hernia that the nasogastric tube was hitting and curling up into. Hospitalist was called and we were told to pull it.
--- NOTE | 2020-06-18 02:11 | USCV_ITS ---
RiosAnurag lowery Age: 80 Gender: M : 1940 Exam Date: 06/18/2020 07:15 Ordering Phys: Moody Bruner MD Technologist: Sindhu Pate Exam Location: [facility] [place] Indication: LEFT LEG SWELLING HISTORY: Lower extremity swelling. PROCEDURES: Venous duplex imaging was performed in only the left lower extremity. The following venous structures were evaluated: common femoral vein, profunda vein, proximal portion of the greater saphenous vein, superficial femoral vein, and the popliteal vein. In addition, the posterior tibial and peroneal trunk were evaluated. Serial compression, augmentation maneuvers, and spectral Doppler flow evaluation were performed. FINDINGS: Normal 2-D Doppler and augmentation and compressibility throughout the lower extremity venous structures. Additional imaging through the proximal calf veins also reveals no thrombus. Limited evaluation of the greater saphenous vein is patent with no thrombus. There is a left lower extremity Nunez's cyst noted. Cyst measures 2.8 x 1.3 cm. CONCLUSIONS No DVT left lower extremity. Left popliteal fossa Nunez's cyst. Dr. Ness De Dios DO (Electronically Signed) Final Date: 18 June 2020 10:46 S
[2020-06-18] MEDS: enoxaparin 100 mg/mL Syringe 90 MG SUBCUT (03:52)
[2020-06-18] MEDS: dextrose 5%-sod chloride 0.45% 1,000 ML 75 ML IV ×2 (03:53→17:08)
[2020-06-18 05:29] LABS: Basophils # 0.1 10^3/uL (0.0-0.1); Eosinophils # 0.4 10^3/uL (0.0-0.8); Eosinophils % 4.6 %; Hematocrit 31.2 % (42.0-52.0); Hemoglobin 9.8 g/dL (11.7-16.6); Lymphocytes # 2.2 10^3/uL (0.8-4.8); Mean Corpuscular HGB Conc 31.4 g/dL (30.0-36.0); Mean Corpuscular Hemoglobin 26.8 pg (28.0-34.0); Mean Corpuscular Volume 85.5 fL (80-94); Mean Platelet Volume 10.1 fL (7.4-10.4); Monocytes # 0.9 10^3/uL (0.2-0.9); Monocytes % 11.1 %; Neutrophils # 4.64 10^3/uL (1.8-7.7); Neutrophils % 56.1 %; Nucleated Red Blood Cells % 0 %; Platelet Count 245 10^3/cmm (130-400); Red Blood Count 3.65 10^6/uL (4.1-5.3); Red Cell Distribution Width 14.5 % (12.1-15.1); White Blood Count 8.3 10^3/uL (4.0-10.0)
[2020-06-18 05:58] LABS: Anion Gap 11.6 (5-19); Blood Urea Nitrogen 16 mg/dL (8-23); Calcium 8.6 mg/dL (8.5-10.5); Carbon Dioxide 33 mmol/L (22-29); Chloride 96 mmol/L (98-107); Glucose 101 mg/dL (65-115); Osmolality Calculated 287 mOsm/kg (285-295); Sodium 138 mmol/L (136-145)
[2020-06-18 06:04] LABS: Potassium 2.6 mmol/L (3.5-5.1)
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
--- NOTE | 2020-06-18 06:38 | PC.NURSE ---
Administered milk of molasses enema. Inserted enema tip into rectum until it met resistance. Pt tolerated well. Small amount of stool noted on the enema tubing but patient was unable to pass a bowel movement. When asked pt stated he didnt feel like he needed to have a bowel movement post enema. Left pt laying on his right side and encouraged pt to notify nursing staff if he feels like he needs to go. Pt verbally stated he understood.
[2020-06-18] MEDS: potassium chloride premix 100 ML 25 MEQ IV ×2 (06:57→11:15)
--- NOTE | 2020-06-18 07:05 | PC.NURSE ---
Upon entering the room the pt had stool on his hands. Pt stated that when he is at home he has to digital remove his stool. I was able to digital remove a large amount of stool from pt. Pt was able to pass soft stool post moving the obstruction. Pt tolerated well.
[2020-06-18] MEDS: polyethylene glycol 3350 Pkt 17 gm PO (08:43)
[2020-06-18] MEDS: apixaban 5 mg Tablet PO ×2 (08:44→17:08)
[2020-06-18] MEDS: sennosides-docusate Tablet 1 TAB PO (08:44)
--- NOTE | 2020-06-18 10:29 | PC.CHAP ---
Pastoral Care Encounter/Spiritual Assessment Type of Contact [] Declined software quality assurance engineer visit [] Patient/Family/Request visit [] Outpatient visit [] Follow-up visit [] Physician referral [] Code/Alert [X] Routine visit [] Staff referral [] Actively dying [] Patient sleeping [] Family support [] [] Out of room [] Palliative care [] [x] Receiving care in room [] Pre-surgical visit [] Trauma [] Long length of stay [] ICU visit [] Other: Relational/Emotional Strength [x] Patient feels connected with others/family/visitors/staff [] Distress [] Loneliness/isolation [] Abandonment Spirituality of Patient [x] Person of Vanna [] Attends [employer] of their Vanna [x] Believes in Prayer [] Reads Bible or Uatsdin materials [] There are Spiritual issues to be addressed Rubber Roller Grinder Operator Interventions [x] Prayer [x] Active listening [x] Non-anxious presence [x] Spiritual/emotional support [] Crisis/trauma care [x] Spiritual counseling [] Bereavement support [] Provided bereavement packet [] Provided Bible/devotional materials [] Provided toy/stuffed animal, coloring book to patient or family member [] Provided Communion [] Anointing/[place] [] Salvation [xHeart] Completed spiritual assessment [] Other: Impact on Illness or Injury [] Angry [] Fearful [] Anxious [] Often cries [] Exhaustion [] Unable to work [] Unable to attend temple [] Unable to walk/stand [] Unable to read [] Unable to drive [] Unable to eat/drink [] Unable to sleep [] Unable to be with family [] Patient intubated [] Other: Summary Heart gone through Stress test, waiting on Doctor report, feels good has a good attitude, going home Time spent with patient 10 mins
--- NOTE | 2020-06-18 12:01 | XR_ITS ---
WS: [id number] XR KUB [id number] REASON FOR EXAM: abdominal pain, impaction FINDINGS: Compared to previous CT scans of 06/13 and 06/17/2020 appears that a large amount of fecal material has been evacuated from the left colon and rectum. Moderate amount of fecal material remains in the righ t colon. No free air or retroperitoneal air. XR/XR KUB [id number] IMPRESSION: Change in fecal content as above.
--- NOTE | 2020-06-18 12:42 | PM.PN ---
Subjective Subjective: Interval history: 80 year old with past medical history of dementia, hypertension, dyslipidemia, chronic diastolic heart failure, chronic obstructive pulmonary disease, peripheral vascular disease, DVT on eliquis, urinary retention with chronic diane, chronic back pain with opiod use and constipation who presented to the ER with nausea, vomiting and abdominal pain. Patient was seen in ER multiple times for this in the past week during which time he required manual disimpaction on 06/13 as he was noted to have fecal impaction. This also led to urinary retention for which a Diane catheter was placed. Laboratory work up on arrival showed a WBC of 8.3, hemoglobin 11.6, hematocrit 35.0 and a platelet count of 278. sodium 138, potassium 3.1, chloride 91, bicarb 36, BUN 17 and creatinine of 1.1. Glucose 142. CT abdomen/pelvis showed several borderline dilated small bowel loops with fluid measuring up to to 3 cm with out transition point suspicious for partial small bowel obstruction. Also noted to have constipation. Upon admission patient a NG insertion was attempted however unsuccessful. Patient was given enema after which he did have a large bowel movement. At the time of my eval he was feeling somewhat nauseous however abdominal pain had resolved. he was wanting to resume diet. Medications: Reviewed: Yes Vitals/I&O/Wt Last Vital Signs Temp 98.4 F 06/18/20 11:06 Pulse 61 06/18/20 11:06 Resp 18 06/18/20 11:06 BP 151/76 06/18/20 11:06 Pulse Ox 95 06/18/20 11:06 06/17/20 06/18/20 06/18/20 22:59 06:59 14:59 Intake Total 100 / 100 100 / 100 Output Total 500 / 500 Balance -400 / -400 100 / 100 Weight last 48 hrs Weight 90.718 kg Physical Exam Narrative: EXAM NARRATIVE: General : Alert, Awake, NAD HEENT : Grossly unremarkable CVS: NSR CHEST : Non-labored respiration ABD : Soft NT/ND Ext : No edema Urinary Catheter Management^: Diane: Cath Placed During This Visit: no Reason for Continuing Indwelling Catheter: Acute Urinary Retention or Obstruction Data : 06/18/20 04:40 06/18/20 04:40 A&P Assessment and plan (1) Obstipation: Status: Acute (2) Partial small bowel obstruction: Status: Acute (3) Hematuria: Status: Acute (4) Chronic constipation: Status: Acute (5) Dyslipidemia: Status: Acute (6) History of DVT (deep vein thrombosis): Status: Acute (7) Benign essential hypertension with target blood pressure below 140/90: Status: Acute (8) COPD (chronic obstructive pulmonary disease) with chronic bronchitis: Status: Chronic (9) Atherosclerotic heart disease of [place] coronary artery without angina pectoris: Status: Acute Qualifiers: [place] vs. transplanted heart: [place] heart Qualified Code(s): I25.10 - Atherosclerotic heart disease of [place] coronary artery without angina pectoris (10) Peripheral vascular disease: Status: Acute (11) Diastolic heart failure: Status: Acute Qualifiers: Heart failure chronicity: chronic Qualified Code(s): I50.32 - Chronic diastolic (congestive) heart failure (12) CAD (coronary artery disease): Status: Acute Qualifiers: Coronary Disease-Associated Artery/Lesion type: bypass graft [place] vs. transplanted heart: [place] heart Associated angina: without angina Qualified Code(s): I25.810 - Atherosclerosis of coronary artery bypass graft(s) without angina pectoris (13) Sleep apnea, unspecified: Status: Acute Qualifiers: Sleep apnea type: obstructive Qualified Code(s): G47.33 - Obstructive sleep apnea (adult) (pediatric) (14) Generalized anxiety disorder: Status: Acute (15) Dementia: Status: Acute Obstipation / Suspected partial SBO - Currently NPO - Noted to have multiple BM since admission - Will obtain KUB - If improved will start on CLD - Zofran PRN for nausea - Avoid narcotics Hypokalemia - K 2.6 - Replaced this am - Repeat K now Urinary retention / Traumatic hematuria - HB 11 -> 9.8 - hematuria resolved - Likely due to above plus BPH - Diane catheter in place - Will start on Flomax 0.4 mg PO daily - Will likely require diane at discharge - Urology consult outpatient Dementia with behavioral disturbances - Seroquel 50 mg PO qhs - CM/SW to assess home needs - Currently calm stable Chronic obstructive pulmonary disease - Stable not in exacerbation - Pulmicort 0.5 inh BID - Duoneb PRN - Supplemental o2 as needed - Chest x-ray no acute findings - CT abd Right lower lobe tree-in-bud type particular nodular densities may reflect an infectious process such as an atypical mycobacterial infection. - No respiratory distress - will monitor off abx Hypertension - Metoprolol 25 mg PO BID Hx of DVT - Continue Eliquis 5 mg PO BID DVT ppx - Eliquis 5 mg PO BID Additional Medical Problems Dyslipidemia Coronary artery disease Chronic diastolic heart failure Peripheral vascular disease Attestations Medical Necessity Statement*: Will require further hospitalization for obstipation, hypokalemia req IV replacement and discharge planning. Time Spent in Patient Care: Greater than 35 minutes (>than 50% of time spent in counselling and/or direct pt care on unit). Coding Level of Care Code Acute Accounting Machine Operator for [facility] Fwd Diagnoses Obstipation K59.00 Partial small bowel obstruction K56.600 Hematuria R31.9 Chronic constipation K59.09 Dyslipidemia E78.5 History of DVT (deep vein thrombosis) Z86.718 Benign essential hypertension with target blood pressure below 140/90 I10 COPD (chronic obstructive pulmonary disease) with chronic bronchitis J44.9 Atherosclerotic heart disease of [place] coronary artery without angina pectoris I25.10 [place] vs. transplanted heart: [place] heart Peripheral vascular disease I73.9 Diastolic heart failure I50.32 Heart failure chronicity: chronic CAD (coronary artery disease) I25.810 Coronary Disease-Associated Artery/Lesion type: bypass graft [place] vs. transplanted heart: [place] heart Associated angina: without angina Sleep apnea, unspecified G47.33 Sleep apnea type: obstructive Generalized anxiety disorder F41.1 Dementia F03.90
[2020-06-18 12:50] LABS: Potassium 3.2 mmol/L (3.5-5.1)
[2020-06-18] MEDS: quetiapine 25 mg Tablet 50 MG PO (21:12)
[2020-06-18] MEDS: metoprolol tartrate 25 mg Tablet PO (21:12)
[2020-06-18] MEDS: budesonide 0.5 mg/2 mL Neb INHALATION (21:14)
[2020-06-19] VITALS (10 sets, daily range): BP systolic 146–200; BP diastolic 62–102; PULSE 62–77; RESP 18–24; TEMP 36.7–37.1; O2SAT 93–97
[2020-06-19 04:05] LABS: Basophils # 0.1 10^3/uL (0.0-0.1); Basophils % 0.8 %; Eosinophils # 0.5 10^3/uL (0.0-0.8); Eosinophils % 6.8 %; Hematocrit 31.4 % (42.0-52.0); Hemoglobin 9.7 g/dL (11.7-16.6); Lymphocytes # 2.4 10^3/uL (0.8-4.8); Lymphocytes % 31.7 %; Mean Corpuscular HGB Conc 30.9 g/dL (30.0-36.0); Mean Corpuscular Volume 87.5 fL (80-94); Mean Platelet Volume 10.6 fL (7.4-10.4); Monocytes # 0.8 10^3/uL (0.2-0.9); Monocytes % 10.9 %; Neutrophils % 49.7 %; Nucleated Red Blood Cells % 0 %; Platelet Count 241 10^3/cmm (130-400); Red Blood Count 3.59 10^6/uL (4.1-5.3); Red Cell Distribution Width 14.3 % (12.1-15.1); White Blood Count 7.5 10^3/uL (4.0-10.0)
[2020-06-19 04:38] LABS: Alanine Aminotransferase 6 U/L (0-41); Albumin Level 3.1 g/dL (3.5-5.2); Alkaline Phosphatase 80 IU/L (40-130); Aspartate Amino Transferase 12 U/L (0-40); Blood Urea Nitrogen 8 mg/dL (8-23); Calcium 8.8 mg/dL (8.5-10.5); Carbon Dioxide 29 mmol/L (22-29); Chloride 97 mmol/L (98-107); Globulin 3.5 g/dL (1.3-4.6); Glucose 92 mg/dL (65-115); Osmolality Calculated 278 mOsm/kg (285-295); Sodium 135 mmol/L (136-145); Total Bilirubin 0.4 mg/dL (0.15-1.2); Total Protein 6.6 g/dL (6.6-8.7)
[2020-06-19] MEDS: dextrose 5%-sod chloride 0.45% 1,000 ML 75 ML IV ×2 (04:48→18:00)
--- NOTE | 2020-06-19 05:43 | PC.NURSE ---
SHIFT SUMMARY Has not slept tonight. Has rested quietly and watched TV. Tells me he is used to taking something for sleep. IV infusing without difficulty at 75ml/hr rate. Has had BM's tonight X3. Last one this am was fairly large and soft. Is very pleasant with some confusion as to day and time. Miranda with good urine output
[2020-06-19] MEDS: budesonide 0.5 mg/2 mL Neb INHALATION ×2 (07:39→19:41)
[2020-06-19] MEDS: polyethylene glycol 3350 Pkt 17 gm PO (08:53)
[2020-06-19] MEDS: sertraline 100 mg Tablet PO (08:53)
[2020-06-19] MEDS: metoprolol tartrate 25 mg Tablet PO ×2 (08:54→20:33)
[2020-06-19] MEDS: apixaban 5 mg Tablet PO ×2 (08:54→17:56)
[2020-06-19] MEDS: sennosides-docusate Tablet 1 TAB PO (08:54)
[2020-06-19 10:22] LABS: SARS Covid-2 Antigen Negative (Negative)
--- NOTE | 2020-06-19 10:46 | PM.PN ---
Subjective Subjective: Interval history: 80 year old with past medical history of dementia, hypertension, dyslipidemia, chronic diastolic heart failure, chronic obstructive pulmonary disease, peripheral vascular disease, DVT on eliquis, urinary retention with chronic diane, chronic back pain with opiod use and constipation who presented to the ER with nausea, vomiting and abdominal pain. Patient was seen in ER multiple times for this in the past week during which time he required manual disimpaction on 06/13 as he was noted to have fecal impaction. This also led to urinary retention for which a Diane catheter was placed. Laboratory work up on arrival showed a WBC of 8.3, hemoglobin 11.6, hematocrit 35.0 and a platelet count of 278. sodium 138, potassium 3.1, chloride 91, bicarb 36, BUN 17 and creatinine of 1.1. Glucose 142. CT abdomen/pelvis showed several borderline dilated small bowel loops with fluid measuring up to to 3 cm with out transition point suspicious for partial small bowel obstruction. Also noted to have constipation. Upon admission patient a NG insertion was attempted however unsuccessful. Patient was given enema after which he did have a large bowel movement. At the time of my eval he was feeling somewhat nauseous however abdominal pain had resolved. he was wanting to resume diet. 06/19/20 Patient overnight continued to have bowel movements tolerated clear liquid diet. No fever, chills, nausea or vomiting. Medications: Reviewed: Yes Vitals/I&O/Wt Last Vital Signs Temp 98.8 F 06/19/20 07:28 Pulse 62 06/19/20 07:43 Resp 18 06/19/20 07:39 BP 189/89 06/19/20 07:28 Pulse Ox 97 06/19/20 07:39 06/18/20 06/19/20 06/19/20 22:59 06:59 14:59 Intake Total 1773.75 / 1873.75 1375 / 3248.75 300 / 300 Output Total 550 / 550 800 / 1350 Balance 1223.75 / 1323.75 575 / 1898.75 300 / 300 Weight last 48 hrs Weight 90.718 kg Physical Exam Narrative: EXAM NARRATIVE: General : Alert, Awake, NAD HEENT : Grossly unremarkable CVS: NSR CHEST : Non-labored respiration ABD : Soft NT/ND Ext : No edema Urinary Catheter Management^: Diane: Cath Placed During This Visit: no Reason for Continuing Indwelling Catheter: Acute Urinary Retention or Obstruction Data : 06/19/20 03:14 06/19/20 03:14 Micro: Microbiology 06/17/20 21:57 Urine Culture - Preliminary Urine,Clean Catch A&P Assessment and plan (1) Obstipation: Status: Acute (2) Partial small bowel obstruction: Status: Acute (3) Hematuria: Status: Acute (4) Chronic constipation: Status: Acute (5) Dyslipidemia: Status: Acute (6) History of DVT (deep vein thrombosis): Status: Acute (7) Benign essential hypertension with target blood pressure below 140/90: Status: Acute (8) COPD (chronic obstructive pulmonary disease) with chronic bronchitis: Status: Chronic (9) Atherosclerotic heart disease of kaw coronary artery without angina pectoris: Status: Acute Qualifiers: [place] vs. transplanted heart: kaw heart Qualified Code(s): I25.10 - Atherosclerotic heart disease of kaw coronary artery without angina pectoris (10) Peripheral vascular disease: Status: Acute (11) Diastolic heart failure: Status: Acute Qualifiers: Heart failure chronicity: chronic Qualified Code(s): I50.32 - Chronic diastolic (congestive) heart failure (12) CAD (coronary artery disease): Status: Acute Qualifiers: Associated angina: without angina Coronary Disease-Associated Artery/Lesion type: bypass graft [place] vs. transplanted heart: kaw heart Qualified Code(s): I25.810 - Atherosclerosis of coronary artery bypass graft(s) without angina pectoris (13) Sleep apnea, unspecified: Status: Acute Qualifiers: Sleep apnea type: obstructive Qualified Code(s): G47.33 - Obstructive sleep apnea (adult) (pediatric) (14) Generalized anxiety disorder: Status: Acute (15) Dementia: Status: Acute Obstipation / Suspected partial SBO - Resolved - Advance diet as tolerated - Noted to have multiple BM since admission - Zofran PRN for nausea - Avoid narcotics Hypokalemia - K 2.6 - 3.0 - KCL 40 MEQ iv x 1 - BMP in am Urinary retention / Traumatic hematuria - HB 11 -> 9.8 - 9.7 - hematuria resolved - Likely due to above plus BPH - Diane catheter in place - Flomax 0.4 mg PO daily - Plan to discharge with diane - Urology consult outpatient Dementia with behavioral disturbances - Seroquel 50 mg PO qhs - CM/SW to assess home needs - Currently calm stable - Psychiatry consulted Chronic obstructive pulmonary disease - Stable not in exacerbation - Pulmicort 0.5 inh BID - Duoneb PRN - Supplemental o2 as needed - Chest x-ray no acute findings - CT abd Right lower lobe tree-in-bud type particular nodular densities may reflect an infectious process such as an atypical mycobacterial infection. - No respiratory distress - will monitor off abx Hypertension - Metoprolol 25 mg PO BID Hx of DVT - Continue Eliquis 5 mg PO BID DVT ppx - Eliquis 5 mg PO BID Additional Medical Problems Dyslipidemia Coronary artery disease Chronic diastolic heart failure Peripheral vascular disease Additional A&P Information Dischage pending placement Attestations Medical Necessity Statement*: Additional day in hospital for psych consult, med adjustment and arranging discharge placement. Time Spent in Patient Care: Greater than 35 minutes (>than 50% of time spent in counselling and/or direct pt care on unit). Coding Level of Care Code Acute Sheet Cutter for Chg Fwd Diagnoses Obstipation K59.00 Partial small bowel obstruction K56.600 Hematuria R31.9 Chronic constipation K59.09 Dyslipidemia E78.5 History of DVT (deep vein thrombosis) Z86.718 Benign essential hypertension with target blood pressure below 140/90 I10 COPD (chronic obstructive pulmonary disease) with chronic bronchitis J44.9 Atherosclerotic heart disease of kaw coronary artery without angina pectoris I25.10 [place] vs. transplanted heart: kaw heart Peripheral vascular disease I73.9 Diastolic heart failure I50.32 Heart failure chronicity: chronic CAD (coronary artery disease) I25.810 Associated angina: without angina Coronary Disease-Associated Artery/Lesion type: bypass graft [place] vs. transplanted heart: kaw heart Sleep apnea, unspecified G47.33 Sleep apnea type: obstructive Generalized anxiety disorder F41.1 Dementia F03.90
[2020-06-19] MEDS: potassium chloride premix 100 ML 25 MEQ IV (11:47)
--- NOTE | 2020-06-19 12:06 | PC.CHAP ---
Pastoral Care Encounter/Spiritual Assessment Type of Contact [] Declined pumping station supervisor visit [] Patient/Family/Request visit [] Outpatient visit [] Follow-up visit [] Physician referral [] Code/Alert [] Routine visit [] Staff referral [] Actively dying [] Patient sleeping [] Family support [] [] Out of room [] Palliative care [] [] Receiving care in room [] Pre-surgical visit [] Trauma [] Long length of stay [] ICU visit [] Other: Relational/Emotional Strength [] Patient feels connected with others/family/visitors/staff [] Distress [] Loneliness/isolation [] Abandonment Spirituality of Patient [] Person of Vanna [] Attends Sikhism of their Vanna [] Believes in Prayer [] Reads Bible or Rastafari materials [] There are Spiritual issues to be addressed Chemistry Lecturer Interventions [] Prayer [] Active listening [] Non-anxious presence [] Spiritual/emotional support [] Crisis/trauma care [] Spiritual counseling [] Bereavement support [] Provided bereavement packet [] Provided Bible/devotional materials [] Provided toy/stuffed animal, coloring book to patient or family member [] Provided Communion [] Anointing/Ault [] Salvation [] Completed spiritual assessment [] Other: Impact on Illness or Injury [] Angry [] Fearful [] Anxious [] Often cries [] Exhaustion [] Unable to work [] Unable to attend yazidi [] Unable to walk/stand [] Unable to read [] Unable to drive [] Unable to eat/drink [] Unable to sleep [] Unable to be with family [] Patient intubated [] Other: Summary Patient placed in isolation so no pumping station supervisor visit accomplished Time spent with patient
--- NOTE | 2020-06-19 13:19 | PC.RESP ---
Pulmonary Rehab information sent to patient.
--- NOTE | 2020-06-19 17:26 | P.CONIM_ITS ---
Providers/Reason for Consult Consulting Physican/Specialty*: Pritesh Erickson MD. Psychiatry Reason for Consult*: Evaluation for need for inpatient geriatric care. Attending Physician: Elizabeth Ness Primary Care Provider: MEGGAN Obando Psych Consult HPI History of Present Illness Anurag Rios is a 80 year old male who presented to the emergency department with the following report: Chief Complaint: Abdominal Pain Stated Complaint: abd pain, constipation and cather issues Time Seen by Provider: 06/17/20 21:19 Source: patient and EMS Mode of arrival: EMS Limitations: no limitations History of Present Illness: HPI narrative: Mr. Rios is a nice 80-year- old male brought in by EMS with report of abdominal pain and vomiting. Patient states he was recently in this hospital for similar complaints. Patient states that he has not had a bowel movement in over a week. He only reports one episode of vomiting which was yesterday. He is not believed to have had a fever. Denies any other complaints such as headache, chest pain, shortness of breath, flank pain, musculoskeletal symptoms or otherwise. EMS also reports the patient is living in [facility]. They state the patient apparently gives his checked a woman that comes in checks on him once a day and give some food. They state. He is living and is essentially a dump. They state the patient claims that he sits in his room with his gun to protect his things as the female that checks on him has a daughter who will try to steal from him. EMS reports the patient's bedroom was covered in trash and they do not see how the patient could rest or care for himself of these conditions. Associated Symptoms: Reports constipation, nausea and vomiting; Denies chills, coffee ground emesis, GI cramping, diarrhea, dysuria, fever(s), heartburn, hematochezia, hematuria, hematemesis, melena and syncope. [facility] department for definitive treatment of his issues. They worked to manage his partial bowel obstruction and multiple other medical comorbidities. Ultimately his living situation was untenable and unsafe for him to try to manage his overall health in a safe manner. Assisted living/long-term supportive living arrangements were found and a desire for a psychiatric consult to rule out need for inpatient services was requested. Anurag presents today complaining of chest pains and other concerns which he was not fully understanding of this doctors separate role in his care. According to his nurse he has vacillating complaints including chest pain that are very frequent. Ultimately after I explained to him that I need to talk to him about his overall functioning, and he was conversant and answering the questions without issue or resistance. Psych history: Denies any inpatient hospitalizations or major psychiatric treatment endorse having been medications for depression anxiety. Substance abuse history: Denies cigarettes alcohol marijuana or any other illicit drug use. He does report having alcohol use in the past. He denies going to rehab but he does report having DUIs in his history/DWIs. Family history: He denies significant health issues that run in the family. He does however report having a nephew who committed suicide. Developmental history: He denies any problems with his mom's or /delivery of him. He learned to walk and talk and met his developmental milestones on time. When he went to school he did not require speech therapy, learning support, emotional support or special education classes. Psychosocial history: He reports that his mother and father were together until one of them . He is the middle child of the 7 children that they had. He reports that his childhood was good and that there was no emotional, physical or sexual abuse. He did not go to high school. Endorses being a heterosexual and his longest relationship was 10+ years. He was twice twice. He had a son who of cancer years ago. He was never , and denies specific jewish belief system. He reports that he did have meaningful employment. Lives in a house alone. Legal history: He reports he has been in long term a couple of times. He reports longest time was 25 years and he does not want to discuss why. Medical history: Please see ED note for the list of the medical comorbidities. Meds Current Medications: Current Medications Generic Name Dose Route Start Last Admin Trade Name Freq PRN Reason Stop Dose Admin Acetaminophen 650 mg 06/19/20 17:28 06/20/20 05:17 Acetaminophen 32 5 Mg Tablet PO 650 mg Q4H PRN Administration MILD PAIN OR INCR EASE TEMP Apixaban 5 mg 06/18/20 09:00 06/19/20 17:56 Apixaban 5 Mg Ta blet PO 5 mg BID CHRIS Administration Budesonide 0.5 mg 06/18/20 20:00 06/19/20 19:41 Budesonide 0.5 M g/2 Ml Neb INHALATION 0.5 mg BID.RESPIRATORY S CH Administration Dextrose/Sodium Ch loride 1,000 mls @ 75 ml s/hr 06/18/20 02:11 06/19/20 18:00 Dextrose 5%-Sod Chloride 0.45% IV 75 mls/hr .[id number] CHRIS Administration Metoprolol Tartrat e 25 mg 06/18/20 21:00 06/19/20 20:33 Metoprolol Tartr ate 25 Mg Tablet PO 25 mg BID@0900,2100 CHRIS Administration Polyethylene Glyco l 17 gm 06/18/20 09:00 06/19/20 08:53 Polyethylene Gly col 3350 Pkt 17 Gm PO 17 gm DAILY CHRIS Administration Quetiapine Fumarat e 50 mg 06/18/20 21:00 06/19/20 20:33 Quetiapine 25 Mg Tablet PO 50 mg BEDTIME CHRIS Administration Senna/Docusate Sod ium 1 tab 06/18/20 09:00 06/19/20 08:54 Sennosides-Docus ate Tablet PO 1 tab DAILY CHRIS Administration Sertraline HCl 100 mg 06/19/20 09:00 06/19/20 08:53 Sertraline 100 M g Tablet PO 100 mg DAILY CHRIS Administration PFSH NPU PFSH: Medical History Atherosclerotic heart disease of [place] coronary artery without angina pectoris Benign essential hypertension with target blood pressure below 140/90 CAD (coronary artery disease) Chronic constipation Chronic prescription opiate use 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 Diastolic heart failure DVT (deep venous thrombosis) Dyslipidemia Generalized anxiety disorder 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 History of DVT (deep vein thrombosis) Hx of cervical spinal arthrodesis Hypertension Intervertebral disc disorder with radiculopathy of lumbosacral region Lower abdominal pain Lumbar disc disease Lumbar spondylosis Lumbar stenosis with neurogenic claudication Major depressive disorder, recurrent severe without psychotic features Peripheral vascular disease Scoliosis of lumbar spine Skin tear Sleep apnea, unspecified SOB (shortness of breath) Unspecified dementia without behavioral disturbance Surgical History History of cervical spinal surgery 1979 [facility] C6-C7 laminectomy/fusion/fixation History of heart artery stent (~2006) History of heart bypass surgery (~2007) History of hernia surgery 4x History of knee surgery Right History of lumbar surgery [facility]. L3-L4, L4-L5, L5-S1 decompression History of uvulopalatopharyngoplasty Hx of CABG Hx of cholecystectomy Family History Father Diabetes Mother Colon cancer Hypertension Social History Smoking and tobacco status: former smoker Second hand smoke exposure: No Smoking risk assessment/counseling performed?: No Alcohol intake: never Desire information about alcohol rehabilitation?: No Counseling given: No Desire information about substance/drug rehabilitation?: No Counseling given: No Adopted: No Caregiver/support person: Yes Lives independently: No Household members: significant other Marital status: Number of children: 5 service: No Current occupational status: disabled History of recent travel: No Current gender identity: Male Mental Status Exam MSE Comments: This is an overweight elderly white male with hospital gown on with adequate eye contact and limited grooming. No abnormal movements except for mild psychomotor agitation. Cooperative with exam in mild distress related to pain complaints. Speech was mostly normal rate and volume. Mood described as okay with depressed at his situation, affect congruent. Thought process organized. I think patient denied suicidal homicidal ideation, no delusions reported noted, though he did have somatic which is unclear if they are real, he denied any other hallucinations. Attention and concentration were intact and memory was in general none were tested. And oriented x3. Insight and judgment are fair, impulse control appears fair. Vitals/I&O/Wt Last Vital Signs Temp 98.5 F 06/19/20 15:30 Pulse 64 06/19/20 15:30 Resp 18 06/19/20 15:30 BP 193/92 06/19/20 15:30 Pulse Ox 96 06/19/20 15:30 06/19/20 14:59 Intake Total 580 / 580 Output Total 950 / 950 Balance -370 / -370 Physical Exam Urinary Catheter Management^: Miranda: Cath Placed During This Visit: no Reason for Continuing Indwelling Catheter: Acute Urinary Retention or Obstruction Data NPU Micro: Micro: Microbiology 06/17/20 21:57 Urine Culture - Pr eliminary Urine,Clean Catch Microbiology 06/17/20 21:57 Urine,Clean Catch Urine Culture - Preliminary A&P Assessment and plan (1) Dementia: Status: Acute (2) Obstipation: Status: Acute (3) Hematuria: Status: Acute (4) Dehydration: Status: Acute (5) Hypokalemia: Status: Acute (6) Partial small bowel obstruction: Status: Acute (7) Constipation: Status: Acute (8) Fecal impaction in rectum: Status: Acute (9) Acute urinary retention: Status: Acute (10) Creatinine elevation: Status: Acute (11) Abdominal pain: Status: Acute Qualifiers: Abdominal location: generalized Qualified Code(s): R10.84 - Generalized abdominal pain (12) Partial small bowel obstruction: Status: Acute (13) SOB (shortness of breath): Status: Acute (14) Congestive heart failure due to cardiomyopathy: Status: Acute (15) Uncircumcised male: Status: Acute (16) Pain, joint, shoulder, right: Status: Acute (17) Pain, joint, hand, right: Status: Acute (18) Acute on chronic congestive heart failure: Status: Acute Qualifiers: Heart failure type: diastolic Qualified Code(s): I50.33 - Acute on chronic diastolic (congestive) heart failure (19) Chronic prescription opiate use: Status: Acute (20) Chronic constipation: Status: Acute (21) Dyslipidemia: Status: Acute (22) Skin tear: Status: Acute (23) Radial head fracture: Status: Acute (24) History of lumbar surgery: Status: Chronic (25) Lumbar spondylosis: Status: Acute (26) Lumbar disc disease: Status: Acute (27) Scoliosis of lumbar spine: Status: Acute (28) History of DVT (deep vein thrombosis): Status: Acute (29) Benign essential hypertension with target blood pressure below 140/90: Status: Acute (30) Lower abdominal pain: Status: Acute (31) COPD (chronic obstructive pulmonary disease) with chronic bronchitis: Status: Chronic (32) Atherosclerotic heart disease of [place] coronary artery without angina pectoris: Status: Acute Qualifiers: [place] vs. transplanted heart: [place] heart Qualified Code(s): I25.10 - Atherosclerotic heart disease of [place] coronary artery without angina pectoris (33) Gram-positive bacteremia: Status: Acute (34) SBO (small bowel obstruction): Status: Acute (35) Chronic prescription opiate use: Status: Acute (36) Peripheral vascular disease: Status: Acute (37) Hypertension: Status: Chronic Qualifiers: Hypertension type: essential hypertension Qualified Code(s): I10 - Essential (primary) hypertension (38) DVT (deep venous thrombosis): Status: Acute Qualifiers: DVT location: lower extremity Affected thrombotic vein of extremity: unspecified vein of extremity Chronicity: chronic Laterality: unspecified laterality Qualified Code(s): I82.509 - Chronic embolism and thrombosis of unspecified deep veins of unspecified lower extremity (39) Diastolic heart failure: Status: Acute Qualifiers: Heart failure chronicity: chronic Qualified Code(s): I50.32 - Chronic diastolic (congestive) heart failure (40) CAD (coronary artery disease): Status: Acute Qualifiers: Coronary Disease-Associated Artery/Lesion type: bypass graft [place] vs. transplanted heart: [place] heart Associated angina: without angina Qualified Code(s): I25.810 - Atherosclerosis of coronary artery bypass graft(s) without angina pectoris (41) Generalized weakness: Status: Acute (42) Unspecified dementia without behavioral disturbance: Status: Acute (43) Sleep apnea, unspecified: Status: Acute Qualifiers: Sleep apnea type: obstructive Qualified Code(s): G47.33 - Obstructive sleep apnea (adult) (pediatric) (44) Generalized anxiety disorder: Status: Acute (45) Major depressive disorder, recurrent severe without psychotic features: Status: Acute (46) Hx of cervical spinal arthrodesis: Status: Chronic (47) Status post lumbar laminectomy: Status: Chronic (48) Lumbar stenosis with neurogenic claudication: Status: Chronic (49) Intervertebral disc disorder with radiculopathy of lumbosacral region: Status: Chronic Additional A&P Information This is an 80-year-old white male with a long list of medical comorbidities and a history of anxiety and depression who presents struggling with self-care in his current living environment endorsing an openness to placement. 1. Continue current medication. We can consider increasing his Zoloft if he complains of ongoing depression, but would want to know when it was less increased. 2. No need for inpatient geriatric psychiatry services. 3. Please let me know if I can be of any further assistance. Attestations NPU Medical Necessity Statement*: N/A. Please see primary team note for medical necessity but no apparent need for inpatient geriatric psychiatric hospitalization. Coding Level of Care Code Acute Audograph Operator for Chg Fwd Diagnoses Dementia F03.90 Obstipation K59.00 Hematuria R31.9 Dehydration E86.0 Hypokalemia E87.6 Partial small bowel obstruction K56.600 Constipation K59.00 Fecal impaction in rectum K56.41 Acute urinary retention R33.8 Creatinine elevation R79.89 Abdominal pain R10.84 Abdominal location: generalized Partial small bowel obstruction K56.600 SOB (shortness of breath) R06.02 Congestive heart failure due to cardiomyopathy I50.9; I42.9 Uncircumcised male Z78.9 Pain, joint, shoulder, right M25.511 Pain, joint, hand, right M25.541 Acute on chronic congestive heart failure I50.33 Heart failure type: diastolic Chronic prescription opiate use Z79.891 Chronic constipation K59.09 Dyslipidemia E78.5 Skin tear Radial head fracture S52.123A History of lumbar surgery Z98.890 Lumbar spondylosis M47.816 Lumbar disc disease M51.9 Scoliosis of lumbar spine M41.9 History of DVT (deep vein thrombosis) Z86.718 Benign essential hypertension with target blood pressure below 140/90 I10 Lower abdominal pain R10.30 COPD (chronic obstructive pulmonary disease) with chronic bronchitis J44.9 Atherosclerotic heart disease of [place] coronary artery without angina pectoris I25.10 [place] vs. transplanted heart: [place] heart Gram-positive bacteremia R78.81 SBO (small bowel obstruction) K56.609 Chronic prescription opiate use Z79.891 Peripheral vascular disease I73.9 Hypertension I10 Hypertension type: essential hypertension DVT (deep venous thrombosis) I82.509 DVT location: lower extremity Affected thrombotic vein of extremity: unspecified vein of extremity Chronicity: chronic Laterality: unspecified laterality Diastolic heart failure I50.32 Heart failure chronicity: chronic CAD (coronary artery disease) I25.810 Coronary Disease-Associated Artery/Lesion type: bypass graft [place] vs. transplanted heart: [place] heart Associated angina: without angina Generalized weakness R53.1 Unspecified dementia without behavioral disturbance F03.90 Sleep apnea, unspecified G47.33 Sleep apnea type: obstructive Generalized anxiety disorder F41.1 Major depressive disorder, recurrent severe without psychotic features F33.2 Hx of cervical spinal arthrodesis Z98.1 Status post lumbar laminectomy Z98.890 Lumbar stenosis with neurogenic claudication M48.062 Intervertebral disc disorder with radiculopathy of lumbosacral region M51.17
[2020-06-19] MEDS: acetaminophen 325 mg Tablet 650 MG PO (17:56)
[2020-06-19] MEDS: quetiapine 25 mg Tablet 50 MG PO (20:33)
[2020-06-20] VITALS (9 sets, daily range): BP systolic 159–202; BP diastolic 87–102; PULSE 66–86; RESP 18–24; TEMP 36.4–37.1; O2SAT 94–98
[2020-06-20] MEDS: acetaminophen 325 mg Tablet 650 MG PO ×2 (05:17→17:13)
[2020-06-20 06:16] LABS: Anion Gap 13.3 (5-19); Blood Urea Nitrogen 5 mg/dL (8-23); Calcium 9.3 mg/dL (8.5-10.5); Carbon Dioxide 28 mmol/L (22-29); Chloride 97 mmol/L (98-107); Glucose 100 mg/dL (65-115); Osmolality Calculated 277 mOsm/kg (285-295); Potassium 3.3 mmol/L (3.5-5.1); Sodium 135 mmol/L (136-145)
[2020-06-20] MEDS: budesonide 0.5 mg/2 mL Neb INHALATION ×2 (07:56→20:26)
--- NOTE | 2020-06-20 08:04 | ECG_ITS ---
[facility] Test Date: 2020-06-20 Pat Name: Anurag Rios Department: Room: 250 Gender: Male Rn Travel: : 1940 Requested By: Elizabeth Ness Order Number: [id number] Tuan MD: CRISTI ARTEAGA Measurements Intervals [place] Rate: 74 P: 41 UT: 207 QRS: 21 QRSD: 115 T: 69 QT: 458 QTc: 510 Interpretive Statements SINUS RHYTHM POSSIBLE LEFT ATRIAL ENLARGEMENT [-0.1mV P WAVE IN V1/V2] INCOMPLETE RIGHT BUNDLE BRANCH BLOCK [90+ ms QRS DURATION, TERMINAL R IN V1/V2, 40+ ms S IN I/aVL/V4/V5/V6] MODERATE ST DEPRESSION [0.05+ mV ST DEPRESSION] PROLONGED QT INTERVAL Compared to ECG 03/14/2020 11:20:35 Incomplete right bundle-branch block now present There is no significant change Electronically Signed On 06-20-2020 18:54:51 DEPUTY CHIEF MAGISTRATE by CRISTI ARTEAGA [id number]
[2020-06-20] MEDS: sertraline 100 mg Tablet PO (08:05)
[2020-06-20] MEDS: apixaban 5 mg Tablet PO ×2 (08:05→17:13)
[2020-06-20] MEDS: sennosides-docusate Tablet 1 TAB PO (08:06)
[2020-06-20] MEDS: polyethylene glycol 3350 Pkt 17 gm PO (08:06)
[2020-06-20] MEDS: metoprolol tartrate 25 mg Tablet PO (08:08)
[2020-06-20] MEDS: dextrose 5%-sod chloride 0.45% 1,000 ML 75 ML IV (08:11)
--- NOTE | 2020-06-20 13:03 | P.PN_ITS ---
Subjective Subjective: Interval history: 80 year old with past medical history of dementia, hypertension, dyslipidemia, chronic diastolic heart failure, chronic obstructive pulmonary disease, peripheral vascular disease, DVT on eliquis, urinary retention with chronic diane, chronic back pain with opiod use and constipation who presented to the ER with nausea, vomiting and abdominal pain. Patient was seen in ER multiple times for this in the past week during which time he required manual disimpaction on 06/13 as he was noted to have fecal impaction. This also led to urinary retention for which a Diane catheter was placed. Laboratory work up on arrival showed a WBC of 8.3, hemoglobin 11.6, hematocrit 35.0 and a platelet count of 278. sodium 138, potassium 3.1, chloride 91, bicarb 36, BUN 17 and creatinine of 1.1. Glucose 142. CT abdomen/pelvis showed several borderline dilated small bowel loops with fluid measuring up to to 3 cm with out transition point suspicious for partial small bowel obstruction. Also noted to have constipation. Upon admission patient a NG insertion was attempted however unsuccessful. Patient was given enema after which he did have a large bowel movement. At the time of my eval he was feeling somewhat nauseous however abdominal pain had resolved. he was wanting to resume diet. 06/19/20 Patient overnight continued to have bowel movements tolerated clear liquid diet. No fever, chills, nausea or vomiting. 06/20/20 Patient was complain of dyspnea this am. noted to be hypertensive. Did not have any hypoxia. No fever, chills, nausea or vomiting. Medications: Reviewed: Yes Vitals/I&O/Wt Last Vital Signs Temp 98.0 F 06/20/20 11:38 Pulse 74 06/20/20 11:38 Resp 18 06/20/20 11:38 BP 176/87 06/20/20 11:38 Pulse Ox 97 06/20/20 11:38 06/19/20 06/20/20 06/20/20 22:59 06:59 14:59 Intake Total 1165 / 1745 1600 / 1600 Output Total 850 / 1800 1675 / 3475 Balance 315 / -55 -1675 / -1730 1600 / 1600 Physical Exam Narrative: EXAM NARRATIVE: General : Alert, Awake, NAD HEENT : Grossly unremarkable CVS: NSR CHEST : Non-labored respiration ABD : Soft NT/ND Ext : No edema Urinary Catheter Management^: Diane: Cath Placed During This Visit: no Reason for Continuing Indwelling Catheter: Acute Urinary Retention or Obstruction Data : 06/19/20 03:14 06/20/20 15:46 Micro: Microbiology 06/17/20 21:57 Urine Culture - Final Urine,Clean Catch A&P Assessment and plan (1) Obstipation: Status: Acute (2) Partial small bowel obstruction: Status: Acute (3) Hematuria: Status: Acute (4) Chronic constipation: Status: Acute (5) Dyslipidemia: Status: Acute (6) History of DVT (deep vein thrombosis): Status: Acute (7) Benign essential hypertension with target blood pressure below 140/90: Status: Acute (8) COPD (chronic obstructive pulmonary disease) with chronic bronchitis: Status: Chronic (9) Atherosclerotic heart disease of [place] coronary artery without angina pectoris: Status: Acute Qualifiers: [place] vs. transplanted heart: [place] heart Qualified Code(s): I25.10 - Atherosclerotic heart disease of [place] coronary artery without angina pectoris (10) Peripheral vascular disease: Status: Acute (11) Diastolic heart failure: Status: Acute Qualifiers: Heart failure chronicity: chronic Qualified Code(s): I50.32 - Chronic diastolic (congestive) heart failure (12) CAD (coronary artery disease): Status: Acute Qualifiers: Associated angina: without angina Coronary Disease-Associated Artery/Lesion type: bypass graft [place] vs. transplanted heart: [place] heart Qualified Code(s): I25.810 - Atherosclerosis of coronary artery bypass graft(s) without angina pectoris (13) Sleep apnea, unspecified: Status: Acute Qualifiers: Sleep apnea type: obstructive Qualified Code(s): G47.33 - Obstructive sleep apnea (adult) (pediatric) (14) Generalized anxiety disorder: Status: Acute (15) Dementia: Status: Acute Hypertensive urgency / Atypical CP - SBP > 200 today - Increase metoprolol to 50 mg PO BID - Add norvasc 10 mg PO daily - Additionally given lasix - Will check ECG, Troponin trend - May consider obtaining ECHO Acute respiratory distress with out hypoxia - Possible fluid overload - Lasix 40mg IV x 1 - Obtain Chest x-ray Obstipation / Suspected partial SBO - Resolved - Advance diet as tolerated - Noted to have multiple BM since admission - Zofran PRN for nausea - Avoid narcotics Hypokalemia - K 2.6 - 3.0 - KCL 40 MEQ iv x 1 - BMP in am Urinary retention / Traumatic hematuria - HB 11 -> 9.8 - 9.7 - hematuria resolved - Likely due to above plus BPH - Diane catheter in place - Flomax 0.4 mg PO daily - Plan to discharge with diane - Urology consult outpatient Dementia with behavioral disturbances - Seroquel 50 mg PO qhs - CM/SW to assess home needs - Currently calm stable - Psychiatry consulted Chronic obstructive pulmonary disease - Stable not in exacerbation - Pulmicort 0.5 inh BID - Duoneb PRN - Supplemental o2 as needed - Chest x-ray no acute findings - CT abd Right lower lobe tree-in-bud type particular nodular densities may reflect an infectious process such as an atypical mycobacterial infection. - No respiratory distress - will monitor off abx Hx of DVT - Continue Eliquis 5 mg PO BID DVT ppx - Eliquis 5 mg PO BID Additional Medical Problems Dyslipidemia Coronary artery disease Chronic diastolic heart failure Peripheral vascular disease Additional A&P Information Dischage pending placement Attestations Medical Necessity Statement*: Will require further hospitalization for management of hypertensive episodes and discharge placement arrangement. Time Spent in Patient Care: Greater than 35 minutes (>than 50% of time spent in counselling and/or direct pt care on unit) . Coding Level of Care Code Acute Computer Graphic Designer for Chg Fwd Diagnoses Obstipation K59.00 Partial small bowel obstruction K56.600 Hematuria R31.9 Chronic constipation K59.09 Dyslipidemia E78.5 History of DVT (deep vein thrombosis) Z86.718 Benign essential hypertension with target blood pressure below 140/90 I10 COPD (chronic obstructive pulmonary disease) with chronic bronchitis J44.9 Atherosclerotic heart disease of [place] coronary artery without angina pectoris I25.10 [place] vs. transplanted heart: [place] heart Peripheral vascular disease I73.9 Diastolic heart failure I50.32 Heart failure chronicity: chronic CAD (coronary artery disease) I25.810 Associated angina: without angina Coronary Disease-Associated Artery/Lesion type: bypass graft [place] vs. transplanted heart: [place] heart Sleep apnea, unspecified G47.33 Sleep apnea type: obstructive Generalized anxiety disorder F41.1 Dementia F03.90
--- NOTE | 2020-06-20 13:03 | XRR_ITS ---
PROCEDURE INFORMATION: Exam: XR Chest, 1 View Exam date and time: 06/20/2020 2:13 PM Age: 80 years old Clinical indication: Dyspnea TECHNIQUE: Imaging protocol: XR of the chest Views: 1 view. COMPARISON: CR XR chest 1V portable [id number] 06/18/2020 1:33 AM FINDINGS: Lungs: Unremarkable. No consolidation. Pleural space: Unremarkable. No pleural effusion. No pneumothorax. Heart/Mediastinum: Stable CABG procedure. Bones/joints: Stable sternotomy. Other findings: Lordotic chest x-ray. XR/XR chest 1V [id number] IMPRESSION: No acute findings.
[2020-06-20] MEDS: potassium chloride oral liq 20 mEq/15 mL UDC PO (13:37)
[2020-06-20 16:14] LABS: Anion Gap 13.7 (5-19); Blood Urea Nitrogen 4 mg/dL (8-23); Calcium 9.1 mg/dL (8.5-10.5); Carbon Dioxide 25 mmol/L (22-29); Chloride 97 mmol/L (98-107); Glucose 114 mg/dL (65-115); Osmolality Calculated 272 mOsm/kg (285-295); Potassium 3.7 mmol/L (3.5-5.1); Sodium 132 mmol/L (136-145)
[2020-06-20 16:16] LABS: Troponin(5th) Baseline 44 ng/L (0-15)
[2020-06-20] MEDS: amlodipine 10 mg Tablet PO (16:33)
[2020-06-20] MEDS: FUROsemide 10 mg/mL SDV 4mL 40 MG IVP (16:33)
[2020-06-20 19:12] LABS: Troponin 5 2HR 45.97 ng/L (0-15); Troponin 5 2HR Delta 1.97 ABS# (0-10)
[2020-06-20] MEDS: metoprolol tartrate 50 mg Tablet PO (20:04)
[2020-06-20] MEDS: quetiapine 25 mg Tablet 50 MG PO (20:04)
[2020-06-20 22:21] LABS: Troponin 5 6HR 48.83 ng/L (0-15); Troponin 5 6HR Delta 4.83 ng/L (0-12)
[2020-06-21] VITALS (9 sets, daily range): BP systolic 161–179; BP diastolic 89–98; PULSE 75–98; RESP 18–24; TEMP 36.6–37.7; O2SAT 95–96
[2020-06-21 05:13] LABS: Basophils # 0.1 10^3/uL (0.0-0.1); Basophils % 0.6 %; Eosinophils # 0.4 10^3/uL (0.0-0.8); Eosinophils % 3.2 %; Hematocrit 38.2 % (42.0-52.0); Lymphocytes # 2.6 10^3/uL (0.8-4.8); Lymphocytes % 20.8 %; Mean Corpuscular HGB Conc 31.4 g/dL (30.0-36.0); Mean Corpuscular Hemoglobin 26.7 pg (28.0-34.0); Mean Corpuscular Volume 85.1 fL (80-94); Mean Platelet Volume 10.2 fL (7.4-10.4); Monocytes # 1.2 10^3/uL (0.2-0.9); Monocytes % 9.3 %; Neutrophils # 8.16 10^3/uL (1.8-7.7); Neutrophils % 65.7 %; Nucleated Red Blood Cells % 0 %; Platelet Count 332 10^3/cmm (130-400); Red Blood Count 4.49 10^6/uL (4.1-5.3); White Blood Count 12.4 10^3/uL (4.0-10.0)
[2020-06-21 05:40] LABS: Alanine Aminotransferase 8 U/L (0-41); Albumin Level 3.5 g/dL (3.5-5.2); Alkaline Phosphatase 89 IU/L (40-130); Anion Gap 12.3 (5-19); Aspartate Amino Transferase 13 U/L (0-40); Blood Urea Nitrogen 4 mg/dL (8-23); Carbon Dioxide 26 mmol/L (22-29); Chloride 101 mmol/L (98-107); Globulin 3.9 g/dL (1.3-4.6); Glucose 109 mg/dL (65-115); Osmolality Calculated 279 mOsm/kg (285-295); Potassium 3.3 mmol/L (3.5-5.1); Sodium 136 mmol/L (136-145); Total Bilirubin 0.3 mg/dL (0.15-1.2); Total Protein 7.4 g/dL (6.6-8.7)
[2020-06-21] MEDS: acetaminophen 325 mg Tablet 650 MG PO ×2 (05:53→12:12)
[2020-06-21] MEDS: apixaban 5 mg Tablet PO (07:53)
[2020-06-21] MEDS: amlodipine 10 mg Tablet PO (07:53)
[2020-06-21] MEDS: metoprolol tartrate 50 mg Tablet PO (07:53)
[2020-06-21] MEDS: sertraline 100 mg Tablet PO (07:53)
[2020-06-21] MEDS: budesonide 0.5 mg/2 mL Neb INHALATION (09:05)
--- NOTE | 2020-06-21 10:39 | PC.SOCIAL ---
IMM Update Pg. 2 of IMM updated and reviewed with patient who verbalized understanding. Copy provided.
--- NOTE | 2020-06-21 16:41 | PC.NURSE ---
Addendum entered by Anabel Barr RN 06/21/20 16:56: AMA paperwork was signed by the spouse due to the fact that the PT was not fully orientated. Original Note: PT has been anxious on and off throughout the day, stating that he wanted to go home. When consulting with the PT explaining to him why he was still here he appeared to be okay with staying to continue to heal and get better. PTs spouse has called a few times today asking to speak with the PT and it was allowed per HIPPA consent. The DR saw the pt this afternoon and spoke with him about discharge plans tomorrow and the PT appeared to be okay with that; this nurse witnessed the conversation.The PTs spouse called again this afternoon and talked with the PT once again and then called back asking if she could take the PT home against medical advice. The risks were explained to both the PT and the spouse as was why we wanted to keep him over night and send him to SNF tomorrow, they both understood why we wanted to keep the PT and the risks that could happen by leaving but decided to leave anyways. The DR was notified. PT's IV was removed, a clean gown was placed on the PT, the diane was emptied and left in place due to chronic reasons, AMA paperwork was signed, and this nurse wheeled the PT out and safely helped PT into the vehicle.
--- NOTE | 2020-06-21 20:33 | P.DS_ITS ---
Discharge Providers Date of Admission: 06/18/20 18:42 Date of Discharge: June 21, 2020 Attending Provider at Admission: Moody Bruner MD Attending Provider at Discharge: Elizabeth Ness Primary Care Provider: MEGGAN Obando Diagnoses at Discharge Discharge Diagnosis (1) Obstipation: Status: Acute (2) Partial small bowel obstruction: Status: Acute (3) Hematuria: Status: Acute (4) Chronic constipation: Status: Acute (5) Dyslipidemia: Status: Acute (6) History of DVT (deep vein thrombosis): Status: Acute (7) Benign essential hypertension with target blood pressure below 140/90: Status: Acute (8) COPD (chronic obstructive pulmonary disease) with chronic bronchitis: Status: Chronic (9) Atherosclerotic heart disease of [place] coronary artery without angina pectoris: Status: Acute Qualifiers: [place] vs. transplanted heart: [place] heart Qualified Code(s): I25.10 - Atherosclerotic heart disease of [place] coronary artery without angina pectoris (10) Peripheral vascular disease: Status: Acute (11) Diastolic heart failure: Status: Acute Qualifiers: Heart failure chronicity: chronic Qualified Code(s): I50.32 - Chronic diastolic (congestive) heart failure (12) CAD (coronary artery disease): Status: Acute Qualifiers: Coronary Disease-Associated Artery/Lesion type: bypass graft [place] vs. transplanted heart: [place] heart Associated angina: without angina Qualified Code(s): I25.810 - Atherosclerosis of coronary artery bypass graft(s) without angina pectoris (13) Sleep apnea, unspecified: Status: Acute Qualifiers: Sleep apnea type: obstructive Qualified Code(s): G47.33 - Obstructive sleep apnea (adult) (pediatric) (14) Generalized anxiety disorder: Status: Acute (15) Dementia: Status: Acute Reason for Visit Reason for Visit: abd pain, constipation and cather issues Hospital Course Hospital Course 80 year old with past medical history of dementia, hypertension, dyslipidemia, chronic diastolic heart failure, chronic obstructive pulmonary disease, peripheral vascular disease, DVT on eliquis, urinary retention with chronic diane, chronic back pain with opiod use and constipation who presented to the ER with nausea, vomiting and abdominal pain. Patient was seen in ER multiple times for this in the past week during which time he required manual dis-impaction on 06/13 as he was noted to have fecal impaction. This also led to urinary retention for which a Diane catheter was placed. Laboratory work up on arrival showed a WBC of 8.3, hemoglobin 11.6, hematocrit 35.0 and a platelet count of 278. sodium 138, potassium 3.1, chloride 91, bicarb 36, BUN 17 and creatinine of 1.1. Glucose 142. CT abdomen/pelvis showed several borderline dilated small bowel loops with fluid measuring up to to 3 cm with out transition point suspicious for partial small bowel obstruction. Also noted to have constipation. Upon admission patient a NG insertion was attempted however unsuccessful. Patient was given enema after which he did have a large bowel movement. At the time of my eval he was feeling somewhat nauseous however abdominal pain had resolved. he was wanting to resume diet which was started with clears and advanced to solids. He was stable for discharge however SNF had requested psych consult to assess for possible piedad psych needs. This was obtained on 06/19. Additional complication included hypertensive episodes. Blood pressure meds were being adjusted. He had noted shortness of breath which improved after discontinuation of IVF and Lasix 40 mg iv x1. Patient on 06/21 patient was alert, awake in no distress however was confused. This was suspected to be likely hospital induced vs possible development of new infectious process vs hypertensive. Unfortunately after my evaluation I was informed that family had presented and signed him out against medical advice. Physical Exam Narrative: EXAM NARRATIVE: General : Alert, Awake, noted to be confused today. HEENT : Grossly unremarkable CVS: NSR CHEST : Non-labored respiration ABD : Soft NT/ND : diane in place. Ext : No edema Urinary Catheter Management^: Diane: Cath Placed During This Visit: no Reason for Continuing Indwelling Catheter: Acute Urinary Retention or Obstruction Discharge Data Data Completed and Pending: Completed Studies During Hospitalization Category Date Time Status CT abdomen pelvis w con* [id number] Stat Cat Scan 06/17/20 21:30 Completed XR KUB 12007 Rout ine Exams 06/18/20 12:01 Completed XR chest 1V [id number] Routine Exams 06/20/20 13:03 Completed XR chest 1V royer ble [id number] Stat Exams 06/17/20 21:31 Completed XR chest 1V royer ble [id number] Stat Exams 06/18/20 01:01 [place] [id number] Routin e Ultrasound 06/18/20 02:11 Completed Labs from last 24 hours 06/21/20 06/21/20 06/20/20 04:14 04:14 21:45 WBC 12.4 H RBC 4.49 Hgb 12.0 Hct 38.2 L MCV 85.1 MCH 26.7 L MCHC 31.4 RDW 14.0 Plt Count 332 MPV 10.2 Neut % (Auto) 65.7 Lymph % (Auto) 20.8 [place] % (Auto) 9.3 Eos % (Auto) 3.2 Baso % (Auto) 0.6 Neut # (Auto) 8.16 H Lymph # (Auto) 2.6 [place] # (Auto) 1.2 H Eos # (Auto) 0.4 Baso # (Auto) 0.1 Nucleated RBC % (a uto) 0 Nucleated RBCs # 0.0 Sodium 136 Potassium 3.3 L Chloride 101 Carbon Dioxide 26 Anion Gap 12.3 BUN 4 L Creatinine 0.8 GFR Calculation Not Reportable Glucose 109 Calculated Osmolal ity 279 L Calcium 9.0 Total Bilirubin 0.3 AST 13 ALT 8 Alkaline Phosphata se 89 Troponin T Hi Sens 6Hr 48.83 H Troponin T Hi Sens 6Hr Delta 4.83 Total Protein 7.4 Albumin 3.5 Globulin 3.9 Vitals: Last Vital Signs Temp 98.3 F 06/21/20 16:53 Pulse 80 06/21/20 16:53 Resp 18 06/21/20 16:53 BP 178/89 06/21/20 16:53 Pulse Ox 95 06/21/20 09:07 Discharge Plan Discharge Prescriptions: No Action Amitiza 24 mcg capsule 24 mcg PO BID 30 Days Qty: 60 RF: 2 budesonide [Pulmicort] 0.5 mg/2 mL suspension for nebulization 0.5 mg INHALATION BID Qty: 120 RF: 2 Biofreeze (menthol) 4 % gel 1 applic TOPICAL TID PRN (Reason: pain) Qty: 118 RF: 0 sertraline 100 mg tablet 100 mg PO DAILY Qty: 30 RF: 2 quetiapine [Seroquel] 50 mg tablet 50 mg PO .HS Qty: 30 RF: 2 ProAir HFA 90 mcg/actuation HFA aerosol inhaler 2 puff INHALATION QID PRN (Reason: Shortness Of Breath) Qty: 8.5 RF: 2 nitroglycerin [Nitrostat] 0.4 mg tablet, sublingual 0.4 mg SUBLINGUAL Q5M PRN (Reason: Chest Pain) Qty: 100 RF: 2 Lasix 40 mg tablet 40 mg PO DAILY Qty: 90 RF: 3 Eliquis 5 mg tablet 5 mg PO BID Qty: 180 RF: 3 metoprolol tartrate 25 mg tablet 25 mg PO BID Qty: 180 RF: 3 cefdinir 300 mg capsule 300 mg PO BID 10 Days Qty: 20 RF: 0 multivitamin [Multiple Vitamins] Tablet 1 tab PO DAILY@08 RF: 0 lactulose 20 gram/30 mL Solution 10 g PO DAILY PRN (Reason: constipation) Qty: 1200 RF: 0 polyethylene glycol 3350 [Miralax] 17 gram Powder In Packet 17 g PO DAILY Qty: 60 RF: 0 trazodone 100 mg Tablet 100 - 300 mg PO BEDTIME@21 RF: 0 Referrals: [facility] [Outside] Discharge Attestations Time Spent in Discharge Care*: greater than 30 min Specific Discharge Activities: documenting/other paperwork and evaluating patient/reviewing data Quality Metrics Clinical Quality Measures During this hospital stay, did patient experience: None Coding Level of Care Code Acute Sld Inclusion Teacher for Chg Fwd Diagnoses Obstipation K59.00 Partial small bowel obstruction K56.600 Hematuria R31.9 Chronic constipation K59.09 Dyslipidemia E78.5 History of DVT (deep vein thrombosis) Z86.718 Benign essential hypertension with target blood pressure below 140/90 I10 COPD (chronic obstructive pulmonary disease) with chronic bronchitis J44.9 Atherosclerotic heart disease of [place] coronary artery without angina pectoris I25.10 [place] vs. transplanted heart: [place] heart Peripheral vascular disease I73.9 Diastolic heart failure I50.32 Heart failure chronicity: chronic CAD (coronary artery disease) I25.810 Coronary Disease-Associated Artery/Lesion type: bypass graft [place] vs. transplanted heart: [place] heart Associated angina: without angina Sleep apnea, unspecified G47.33 Sleep apnea type: obstructive Generalized anxiety disorder F41.1 Dementia F03.90
== END 2020-06-21 16:30 | disposition left against medical advice (07) | DRG 392 ==
LOC: ER 22:03 → MEDSURG 06-18 00:39
PROVIDERS: Admitting Provider Internal Medicine; Emergency Provider Emergency Medicine; PCP Nurse Practitioner; Visit Provider Hospitalist
DX: K59.03 Drug induced constipation (principal); I50.32 Chronic diastolic (congestive) heart failure; I42.9 Cardiomyopathy, unspecified; F33.2 Major depressive disorder, recurrent severe without psychotic features; T40.605A Adverse effect of unspecified narcotics, initial encounter; I25.10 Atherosclerotic heart disease of native coronary artery without angina pectoris; Z95.5 Presence of coronary angioplasty implant and graft; Z95.1 Presence of aortocoronary bypass graft; I11.0 Hypertensive heart disease with heart failure; F03.90 Unspecified dementia, unspecified severity, without behavioral disturbance, psychotic disturbance, mood disturbance, and anxiety; G89.29 Other chronic pain; M54.9 Dorsalgia, unspecified; Z86.718 Personal history of other venous thrombosis and embolism; J44.9 Chronic obstructive pulmonary disease, unspecified; Z79.891 Long term (current) use of opiate analgesic; E78.5 Hyperlipidemia, unspecified; F41.1 Generalized anxiety disorder; Z85.840 Personal history of malignant neoplasm of eye; Z90.01 Acquired absence of eye; G47.33 Obstructive sleep apnea (adult) (pediatric); Z87.891 Personal history of nicotine dependence; E87.6 Hypokalemia; E86.0 Dehydration; Z53.29 Procedure and treatment not carried out because of patient's decision for other reasons; I73.9 Peripheral vascular disease, unspecified; R33.9 Retention of urine, unspecified; R31.9 Hematuria, unspecified
CPT/HCPCS: 12345; 36415; 71045; 74018; 74177; 80048; 80053; 81001; 83690; 83735; 84132; 84484; 85025; 87086; 87426; 93005; 93971; 94640; 96375; 99283; G0378; J1650; J1940; J3480; J7626; J7799; Q9967

== ENCOUNTER 2020-07-16 00:32 | Emergency (ER) | payer MEDICARE, MEDICAID, SELFPAY ==
[2020-07-16] VITALS (7 sets, daily range): BP systolic 104–148; BP diastolic 57–80; PULSE 57–74; RESP 18–23; TEMP 37.3; O2SAT 91–95; BMI 25.7
--- NOTE | 2020-07-16 00:39 | XR_ITS ---
WS: [id number] Portable AP upright chest, 07/16/2020 Clinical Data: sob Comparison: Portable chest, 06/20/2020. Findings: No nodules, masses or effusions are seen. There is minimal atelectasis and/or pneumonia ove r the surface of the left diaphragm. The heart is normal. The pulmonary vascularity is not increased. No pneumonia or pneumothorax is seen. The aortic arch and descending aorta show calcification and to rtuosity. Midline sternotomy sutures are seen. XR/XR chest 1V portable [id number] Impression: 1. Minimal left lower lobe atelectasis and/or pneumonia and recommend repeat ch est x-ray 2-3 days. 2. Atherosclerosis.
--- NOTE | 2020-07-16 00:40 | ECG_ITS ---
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 Measurements Intervals [place] Rate: 71 P: 19 [place]: 196 QRS: 2 QRSD: 117 T: 43 QT: 480 QTc: 522 Interpretive Statements SINUS RHYTHM MODERATE INTRAVENTRICULAR CONDUCTION DELAY [110+ ms QRS DURATION] PROLONGED QT INTERVAL Compared to ECG 06/20/2020 08:08:56 Intraventricular conduction delay now present Incomplete right bundle-branch block no longer present ST (T wave) deviation no longer present Electronically Signed On 07-16-2020 20:48:42 BILLING ASSOCIATE by Nitza Heard M.D. [id number]
--- NOTE | 2020-07-16 00:40 | W.ED.SOB ---
HPI - SOB/Dyspnea General: Stated Complaint: sob Time Seen by Provider: 07/16/20 00:39 History of Present Illness: HPI Narrative: Patient arrives via ambulance with complaints of shortness of breath. Ambulance crew found him at home incontinent which she has a history of. Short of breath sats 94% they looked at his concentrator and concentrator showed it was malfunctioning and that it overheated and he was not getting oxygen they gave her breathing treatment oxygen in route and he is maintained 100% in the ambulance. Patient does not exhibiting signs of shortness of breath. Patient said he has been short of breath last couple months at least. MD elicited complaint: shortness of breath Pertinent past history: COPD Timing: progressively worsening Severity: mild Exacerbating factors: nothing Relieving factors: oxygen Known history of: COPD Associated symptoms: Reports no associated symptoms; Deny abdominal pain, chest pain, extremity pain, fever(s), nausea or vomiting Treatment prior to arrival: oxygen Review of Systems Const: Denies: fever(s), chills or body aches Eyes: Denies: change in vision or blurry vision ENMT: Denies: throat pain or nasal congestion Card: Denies: chest pain or dyspnea on exertion Resp: Reports: dyspnea; Denies: productive cough or non-productive cough GI: Denies: abdominal pain, nausea or vomiting : Denies: difficulty urinating Musc: Denies: extremity pain Skin/Breast: Denies: rash Neuro: Denies: headache(s) Psych: Denies: anxiety or depression Jm/Lymph: Denies: easy bruising PFS ED PFSH: Medical History (Updated 06/26/20 @ 13:42 by Landon Chaney MD) Acute on chronic congestive heart failure Acute urinary retention Atherosclerotic heart disease of [place] coronary artery without angina pectoris Benign essential hypertension with target blood pressure below 140/90 CAD (coronary artery disease) Chronic constipation Chronic prescription opiate use Chronic prescription opiate use 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 Diastolic heart failure DVT (deep venous thrombosis) Dyslipidemia Generalized anxiety disorder Gram-positive bacteremia 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 History of DVT (deep vein thrombosis) Hx of cervical spinal arthrodesis Hypertension Intervertebral disc disorder with radiculopathy of lumbosacral region Lower abdominal pain Lumbar disc disease Lumbar spondylosis Lumbar stenosis with neurogenic claudication Major depressive disorder, recurrent severe without psychotic features Pain, joint, hand, right Pain, joint, shoulder, right Peripheral vascular disease Radial head fracture SBO (small bowel obstruction) Scoliosis of lumbar spine Skin tear Sleep apnea, unspecified SOB (shortness of breath) Uncircumcised male Unspecified dementia without behavioral disturbance Surgical History History of cervical spinal surgery [address] [facility] C6-C7 laminectomy/fusion/fixation History of heart artery stent (~2006) History of heart bypass surgery (~2007) History of hernia surgery 4x History of knee surgery Right History of lumbar surgery [facility]. L3-L4, L4-L5, L5-S1 decompression History of uvulopalatopharyngoplasty Hx of CABG Hx of cholecystectomy Family History Father Diabetes Mother Colon cancer Hypertension Social History Smoking and tobacco status: former smoker Second hand smoke exposure: No Smoking risk assessment/counseling performed?: No Alcohol intake: never Desire information about alcohol rehabilitation?: No Counseling given: No Desire information about substance/drug rehabilitation?: No Counseling given: No Adopted: No Caregiver/support person: Yes Lives independently: No Household members: significant other Marital status: Number of children: 5 service: No Current occupational status: disabled History of recent travel: No Current gender identity: Male Physical Exam Const: COMMON NORMALS: no acute distress, average body habitus and patient oriented x3 HENMT: COMMON NORMALS: normocephalic HEAD & SCALP: normal to inspection and normocephalic FACE & SINUS: normal facial exam Eye: COMMON NORMALS: conjunctivae normal GENERAL EYE: appearance normal, both eyes and all related structures CONJUNCTIVA: Yes conjunctivae normal Neck/C-Spine: COMMON NORMALS: no JVD Chest: COMMONS NORMALS: normal inspection of the chest Resp: COMMON NORMALS: normal respiratory effort and clear to auscultation bilaterally AUSCULTATION: clear to auscultation bilaterally Cardio: COMMON NORMALS: no JVD, regular rate and regular rhythm RATE: regular rate RHYTHM: regular rhythm GI: COMMON NORMALS: Normal to inspection, nondistended, normoactive bowel sounds present Extremity: COMMON NORMALS: normal to inspection and full ROM Neuro: COMMON NORMALS: patient oriented x3 Discharge Plan Discharge Prescriptions: No Action Amitiza 24 mcg capsule 24 mcg PO BID 30 Days Qty: 60 RF: 2 budesonide [Pulmicort] 0.5 mg/2 mL suspension for nebulization 0.5 mg INHALATION BID Qty: 120 RF: 2 Biofreeze (menthol) 4 % gel 1 applic TOPICAL TID PRN (Reason: pain) Qty: 118 RF: 0 sertraline 100 mg tablet 100 mg PO DAILY Qty: 30 RF: 2 quetiapine [Seroquel] 50 mg tablet 50 mg PO .HS Qty: 30 RF: 2 tamsulosin 0.4 mg capsule 0.4 mg PO DAILY RF: 0 ProAir HFA 90 mcg/actuation HFA aerosol inhaler 2 puff INHALATION QID PRN (Reason: Shortness Of Breath) Qty: 8.5 RF: 2 nitroglycerin [Nitrostat] 0.4 mg tablet, sublingual 0.4 mg SUBLINGUAL Q5M PRN (Reason: Chest Pain) Qty: 100 RF: 2 Lasix 40 mg tablet 40 mg PO DAILY Qty: 90 RF: 3 Eliquis 5 mg tablet 5 mg PO BID Qty: 180 RF: 3 metoprolol tartrate 25 mg tablet 25 mg PO BID Qty: 180 RF: 3 multivitamin [Multiple Vitamins] Tablet 1 tab PO DAILY@08 RF: 0 lactulose 20 gram/30 mL Solution 10 g PO DAILY PRN (Reason: constipation) Qty: 1200 RF: 0 polyethylene glycol 3350 [Miralax] 17 gram Powder In Packet 17 g PO DAILY Qty: 60 RF: 0 trazodone 100 mg Tablet 100 - 300 mg PO BEDTIME@21 RF: 0 Coding Level of Care Code ED Wrapping Machine Operator for Josephineg Fwarlin
[2020-07-16 01:10] LABS: Basophils # 0.1 10^3/uL (0.0-0.1); Basophils % 0.4 %; Eosinophils % 0.2 %; Hemoglobin 9.8 g/dL (11.7-16.6); Lymphocytes # 1.5 10^3/uL (0.8-4.8); Lymphocytes % 7.9 %; Mean Corpuscular HGB Conc 31.6 g/dL (30.0-36.0); Mean Corpuscular Hemoglobin 26.3 pg (28.0-34.0); Mean Corpuscular Volume 83.3 fL (80-94); Mean Platelet Volume 9.5 fL (7.4-10.4); Monocytes # 1.4 10^3/uL (0.2-0.9); Monocytes % 7.4 %; Neutrophils # 15.42 10^3/uL (1.8-7.7); Neutrophils % 83.4 %; Nucleated Red Blood Cells % 0 %; Platelet Count 350 10^3/cmm (130-400); Red Blood Count 3.72 10^6/uL (4.1-5.3); Red Cell Distribution Width 14.1 % (12.1-15.1); White Blood Count 18.5 10^3/uL (4.0-10.0)
[2020-07-16 01:28] LABS: Alanine Aminotransferase 8 U/L (0-41); Albumin Level 2.9 g/dL (3.5-5.2); Alkaline Phosphatase 89 IU/L (40-130); Anion Gap 11.1 (5-19); Aspartate Amino Transferase 9 U/L (0-40); Blood Urea Nitrogen 9 mg/dL (8-23); Calcium 8.9 mg/dL (8.5-10.5); Carbon Dioxide 29 mmol/L (22-29); Chloride 97 mmol/L (98-107); Globulin 3.8 g/dL (1.3-4.6); Glucose 177 mg/dL (65-115); Osmolality Calculated 281 mOsm/kg (285-295); Potassium 3.1 mmol/L (3.5-5.1); Sodium 134 mmol/L (136-145); Total Bilirubin 0.4 mg/dL (0.15-1.2); Total Protein 6.7 g/dL (6.6-8.7)
[2020-07-16 01:30] LABS: Troponin(5th) Baseline 23 ng/L (0-15)
[2020-07-16] MEDS: potassium chloride ER 20 mEq Tablet PO (02:37)
[2020-07-16 02:40] LABS: Lactate (Lactic Acid level) 1.7 mmol/L (0.5-2.2)
[2020-07-16 03:07] LABS: Add Urine Microscopic? YES; Bilirubin Urine Neg (Negative); Blood Urine 3+ (Negative); Glucose Urine UA Norm (Normal); Ketones Urine Negative (Negative); Leukocyte Esterase Urine 2+ (Negative); Nitrate Urine Negative (Negative); Protein Urine Trace (Negative); Urine Appearance Turbid (CLEAR); Urine Color Yellow (Yellow); Urobilinogen Urine 1 mg/dL (Negative)
[2020-07-16 03:08] LABS: Add Urine Culture? Yes; Bacteria Urine 3+ /hpf; WBC Urine TOO NUMEROUS TO CNT /hpf (0-5)
[2020-07-16] MEDS: sulfamethoxazole-trimeth DS 160-800 mg Tablet 1 TAB PO (03:16)
[2020-07-16 03:21] LABS: Troponin 5 2HR 20.97 ng/L (0-15)
[2020-07-16 03:22] LABS: Troponin 5 2HR Delta -2.03 ABS# (0-10)
--- NOTE | 2020-07-16 10:41 | DCPLANNER ---
retail pharmacy manager was asked to call [facility] about patients transportation. retail pharmacy manager [facility], spoke with Ashli, a trip was arranged for patient, but transport company had never been called. retail pharmacy manager gave [facility], the phone number to [facility] transport for them to call and give the trip number so that the transport company can pick patient up. retail pharmacy manager also called [facility] Transport, and spoke with Shelbi. retail pharmacy manager was told that someone would come and pick patient up.
== END 2020-07-16 10:41 | disposition home or self-care (01) ==
PROVIDERS: Emergency Provider Nurse Practitioner Family; PCP Nurse Practitioner
DX: R06.02 Shortness of breath (principal); Z79.01 Long term (current) use of anticoagulants; I11.0 Hypertensive heart disease with heart failure; I50.9 Heart failure, unspecified; I25.10 Atherosclerotic heart disease of native coronary artery without angina pectoris; J44.9 Chronic obstructive pulmonary disease, unspecified; E78.5 Hyperlipidemia, unspecified; Z95.1 Presence of aortocoronary bypass graft; Z87.891 Personal history of nicotine dependence; Z79.899 Other long term (current) drug therapy
CPT/HCPCS: 12345; 71045; 80053; 81001; 83605; 84484; 85025; 87086; 93005; 99283; 99284

== ENCOUNTER 2020-07-26 20:46 | Emergency (ER) | payer MEDICARE, MEDICAID, SELFPAY ==
[2020-07-26] VITALS (7 sets, daily range): BP systolic 112–124; BP diastolic 61–85; PULSE 63–93; RESP 17–20; TEMP 36.8; O2SAT 88–95; BMI 25.7
--- NOTE | 2020-07-26 21:38 | PC.NURSE ---
placed by EMS
--- NOTE | 2020-07-26 21:58 | XRR_ITS ---
PROCEDURE INFORMATION: Exam: XR Abdomen, 2 Views Exam date and time: 07/26/2020 10:12 PM Age: 80 years old Clinical indication: Constipation; Additional info: Constipation, difficulty urinating TECHNIQUE: Imaging protocol: XR of the abdomen. Views: 2 Views. COMPARISON: CT abdomen pelvis w con* [id number] 06/17/2020 11:10 PM FINDINGS: Gastrointestinal tract: Large amount of stool in the rectum and scattered throughout the entire colon. There are a few loops of mildly distended gas-filled small bowel. Intraperitoneal space: No pneumoperitoneum. Bones/joints: Sternotomy wires. XR/XR acute abdomen series [id number] IMPRESSION: 1. Large stool burden in the colon and rectum likely indicates constipation with rectal impaction. 2. No acute findings in the chest.
[2020-07-26 22:50] LABS: Add Urine Culture? Yes; Add Urine Microscopic? YES; Bacteria Urine 2+ /hpf; Bilirubin Urine Neg (Negative); Blood Urine 2+ (Negative); Glucose Urine UA Norm (Normal); Ketones Urine Negative (Negative); Leukocyte Esterase Urine Negative (Negative); Nitrate Urine Negative (Negative); Protein Urine Neg (Negative); RBC Urine 0-4 /hpf (0-2); Squamous Epithelial Cell Urine 0-4 /hpf (0-5); Triple Phosphate Crystal Urine 25-40 /hpf; Urine Appearance Cloudy (CLEAR); Urine Color Yellow (Yellow); Urobilinogen Urine Norm (Negative); WBC Urine 15-25 /hpf (0-5); pH Urine 5 (5-7)
--- NOTE | 2020-07-26 23:12 | PC.NURSE ---
Pt stated he uses 2L NC always. Pt Sp02 88% with positive pleth.
[2020-07-27] VITALS: BP 113/58; PULSE 67; RESP 18; O2SAT 97
[2020-07-27 00:02] LABS: Basophils # 0.1 10^3/uL (0.0-0.1); Basophils % 0.6 %; Eosinophils # 0.4 10^3/uL (0.0-0.8); Eosinophils % 3.1 %; Hemoglobin 9.2 g/dL (11.7-16.6); Lymphocytes % 7.9 %; Mean Corpuscular HGB Conc 29.7 g/dL (30.0-36.0); Mean Corpuscular Hemoglobin 25.7 pg (28.0-34.0); Mean Corpuscular Volume 86.6 fL (80-94); Monocytes # 0.4 10^3/uL (0.2-0.9); Monocytes % 2.9 %; Neutrophils # 10.46 10^3/uL (1.8-7.7); Neutrophils % 84.9 %; Nucleated Red Blood Cells % 0 %; Platelet Count 342 10^3/cmm (130-400); Red Blood Count 3.58 10^6/uL (4.1-5.3); Red Cell Distribution Width 15.1 % (12.1-15.1); White Blood Count 12.3 10^3/uL (4.0-10.0)
[2020-07-27 00:11] LABS: Alanine Aminotransferase 9 U/L (0-41); Albumin Level 3.3 g/dL (3.5-5.2); Alkaline Phosphatase 80 IU/L (40-130); Anion Gap 13.1 (5-19); Aspartate Amino Transferase 11 U/L (0-40); Blood Urea Nitrogen 17 mg/dL (8-23); Calcium 8.9 mg/dL (8.5-10.5); Carbon Dioxide 29 mmol/L (22-29); Chloride 96 mmol/L (98-107); Globulin 3.5 g/dL (1.3-4.6); Glucose 125 mg/dL (65-115); Magnesium 2.1 mg/dL (1.7-2.3); Osmolality Calculated 281 mOsm/kg (285-295); Potassium 4.1 mmol/L (3.5-5.1); Sodium 134 mmol/L (136-145); Total Bilirubin 0.2 mg/dL (0.15-1.2); Total Protein 6.8 g/dL (6.6-8.7)
[2020-07-27] MEDS: magnesium citrate Btl 296 mL PO (00:27)
--- NOTE | 2020-07-27 00:30 | PC.NURSE ---
call to [facility] for transport [place] [phone]
--- NOTE | 2020-07-27 00:49 | PC.NURSE ---
Reference number [id number] Transportation pickle cutter with 30 minutes to 3 hours.
[2020-07-27 04:50] VITALS: BP 108/60; PULSE 56; RESP 20; O2SAT 96
--- NOTE | 2020-07-27 07:45 | W.ED.SOB ---
HPI - SOB/Dyspnea General: Chief Complaint: Shortness of Breath/Dyspnea Stated Complaint: SOB Time Seen by Provider: 07/26/20 21:37 History of Present Illness: HPI Narrative: 80-year-old gentleman presents by ambulance. His original complaint was shortness of breath, but for me he complains mainly of constipation and inability to urinate. He has been self cathing at home, with his 's help, and he does not like this. He also has not been able to have a bowel movement despite using some stool softeners. He states that he feels full, and it is hard to take a breath because of that. He denies any cough. He denies fever. Pertinent past history: congestive heart failure Onset (ago): day(s) Timing: constant Severity: mild Known history of: congestive heart failure Associated symptoms: Reports nausea and vomiting; Deny abdominal pain, chest pain, cough, diaphoresis, dizziness, fever(s), hemoptysis or palpitations Review of Systems Const: Denies: fever(s) or diaphoresis ENMT: Denies: throat pain Card: Denies: chest pain or palpitations Resp: Denies: hemoptysis GI: Reports: nausea and vomiting; Denies: abdominal pain : Reports: urinary dribbling Neuro: Reports: confusion; Denies: headache(s) or dizziness PFS ED PFSH: Medical History (Updated 07/26/20 @ 23:56 by Matias Espana DO) Acute on chronic congestive heart failure Acute urinary retention Atherosclerotic heart disease of [place] coronary artery without angina pectoris Benign essential hypertension with target blood pressure below 140/90 CAD (coronary artery disease) Chronic constipation Chronic prescription opiate use Chronic prescription opiate use 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 Diastolic heart failure DVT (deep venous thrombosis) Dyslipidemia Generalized anxiety disorder Gram-positive bacteremia 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 History of DVT (deep vein thrombosis) Hx of cervical spinal arthrodesis Hypertension Intervertebral disc disorder with radiculopathy of lumbosacral region Lower abdominal pain Lumbar disc disease Lumbar spondylosis Lumbar stenosis with neurogenic claudication Major depressive disorder, recurrent severe without psychotic features Pain, joint, hand, right Pain, joint, shoulder, right Peripheral vascular disease Radial head fracture SBO (small bowel obstruction) Scoliosis of lumbar spine Skin tear Sleep apnea, unspecified SOB (shortness of breath) Uncircumcised male Unspecified dementia without behavioral disturbance Surgical History History of cervical spinal surgery 1979 [facility] C6-C7 laminectomy/fusion/fixation History of heart artery stent (~2006) History of heart bypass surgery (~2007) History of hernia surgery 4x History of knee surgery Right History of lumbar surgery [facility]. L3-L4, L4-L5, L5-S1 decompression History of uvulopalatopharyngoplasty Hx of CABG Hx of cholecystectomy Family History Father Diabetes Mother Colon cancer Hypertension Social History Smoking and tobacco status: former smoker Second hand smoke exposure: No Smoking risk assessment/counseling performed?: No Alcohol intake: never Desire information about alcohol rehabilitation?: No Counseling given: No Desire information about substance/drug rehabilitation?: No Counseling given: No Adopted: No Caregiver/support person: Yes Lives independently: No Household members: significant other Marital status: Number of children: 5 service: No Current occupational status: disabled History of recent travel: No Current gender identity: Male Physical Exam Const: COMMON NORMALS: no acute distress GENERAL APPEARANCE: frail appearing; not ill appearing HENMT: COMMON NORMALS: normocephalic HEAD & SCALP: normocephalic Chest: COMMONS NORMALS: normal inspection of the chest Resp: COMMON NORMALS: normal respiratory effort, No use of accessory muscles and clear to auscultation bilaterally AUSCULTATION: clear to auscultation bilaterally Cardio: COMMON NORMALS: regular rate and regular rhythm RATE: regular rate RHYTHM: regular rhythm GI: COMMON NORMALS: Soft to palpation and non-tender PALPATION: Yes Soft to palpation : COMMON NORMALS: Yes no CVA tenderness BLADDER/KIDNEY EXAM: Yes no CVA tenderness SCROTUM: Yes scrotal swelling Scrotal swelling laterality: bilateral Back/Pelvis: COMMON NORMALS: no CVA tenderness Extremity: GENERAL: Yes edema Course Vital Signs: Vital signs: Vital Signs Temperature 98.3 F 07/26/20 21:24 Pulse Rate 56 L 07/27/20 04:50 Respiratory Rate 20 H 07/27/20 04:50 Blood Pressure 108/60 07/27/20 04:50 Pulse Oximetry 96 07/27/20 04:50 MDM - SOB/Dyspnea MDM Narrative: Medical decision making narrative: 80-year-old gentleman who is satting normally on his home oxygen levels. His hemoglobin is 9.2. White blood cell count 12.3. Creatinine 1.4. He does not appear ill a Miranda is placed, with urine output drainage. Acute abdominal series reveals rectal impaction. The patient was manually disimpacted by me at least partially. He will go home on magnesium citrate to ensure continued movement of stool. There is no obstruction. He will be discharged. Lab Data: Labs: Lab Results 07/26/20 07/26/20 07/26/20 Range/Units 21:38 21:38 22:11 WBC 12.3 H (4.0-10.0) 10^3/ uL RBC 3.58 L (4.1-5.3) 10^6/u L Hgb 9.2 L (11.7-16.6) g/dL Hct 31.0 L (42.0-52.0) % MCV 86.6 (80-94) fL MCH 25.7 L (28.0-34.0) pg MCHC 29.7 L (30.0-36.0) g/dL RDW 15.1 (12.1-15.1) % Plt Count 342 (130-400) 10^3/c mm MPV 10.0 (7.4-10.4) fL Neut % (Auto) 84.9 % Lymph % (Auto) 7.9 % Jones % (Auto) 2.9 % Eos % (Auto) 3.1 % Baso % (Auto) 0.6 % Neut # (Auto) 10.46 H (1.8-7.7) 10^3/u L Lymph # (Auto) 1.0 (0.8-4.8) 10^3/u L Jones # (Auto) 0.4 (0.2-0.9) 10^3/u L Eos # (Auto) 0.4 (0.0-0.8) 10^3/u L Baso # (Auto) 0.1 (0.0-0.1) 10^3/u L Nucleated RBC % (a uto) 0 % Nucleated RBCs # 0.0 /100WBC Sodium 134 L (136-145) mmol/L Potassium 4.1 (3.5-5.1) mmol/L Chloride 96 L (98-107) mmol/L Carbon Dioxide 29 (22-29) mmol/L Anion Gap 13.1 (5-19) BUN 17 (8-23) mg/dL Creatinine 1.4 H (0.7-1.2) mg/dL GFR Calculation Not Reportable Glucose 125 H (65-115) mg/dL Calculated Osmolal ity 281 L (285-295) mOsm/k g Calcium 8.9 (8.5-10.5) mg/dL Magnesium 2.1 (1.7-2.3) mg/dL Total Bilirubin 0.2 (0.15-1.2) mg/dL AST 11 (0-40) U/L ALT 9 (0-41) U/L Alkaline Phosphata se 80 (40-130) IU/L Total Protein 6.8 (6.6-8.7) g/dL Albumin 3.3 L (3.5-5.2) g/dL Globulin 3.5 (1.3-4.6) g/dL Urine Color Yellow (Yellow) Urine Appearance Cloudy (CLEAR) Urine pH 5 (5-7) Ur Specific Gravit y 1.020 (1.005-1.030) Urine Protein Neg (Negative) Urine Glucose (UA) Norm (Normal) Urine Ketones Negative (Negative) Urine Blood 2+ H (Negative) Urine Nitrate Negative (Negative) Urine Bilirubin Neg (Negative) Urine Urobilinogen Norm (Negative) mg/dL Ur Leukocyte Kamini ase Negative (Negative) Urine RBC 0-4 H (0-2) /hpf Urine WBC 15-25 H (0-5) /hpf Ur Squamous Epith Cells 0-4 H (0-5) /hpf Triple Phos Saloni ls 25-40 H /hpf Amorphous Sediment Not Reportable Urine Bacteria 2+ H (NONE) /hpf Discharge Plan Discharge Patient Disposition: Home Clinical Impression: Acute urinary retention, Fecal impaction in rectum Condition: Stable Prescriptions: No Action Amitiza 24 mcg capsule 24 mcg PO BID 30 Days Qty: 60 RF: 2 budesonide [Pulmicort] 0.5 mg/2 mL suspension for nebulization 0.5 mg INHALATION BID Qty: 120 RF: 2 Biofreeze (menthol) 4 % gel 1 applic TOPICAL TID PRN (Reason: pain) Qty: 118 RF: 0 sertraline 100 mg tablet 100 mg PO DAILY Qty: 30 RF: 2 quetiapine [Seroquel] 50 mg tablet 50 mg PO .HS Qty: 30 RF: 2 tamsulosin 0.4 mg capsule 0.4 mg PO DAILY RF: 0 nitroglycerin [Nitrostat] 0.4 mg tablet, sublingual 0.4 mg SUBLINGUAL Q5M PRN (Reason: Chest Pain) Qty: 100 RF: 2 Lasix 40 mg tablet 40 mg PO DAILY Qty: 90 RF: 3 Eliquis 5 mg tablet 5 mg PO BID Qty: 180 RF: 3 metoprolol tartrate 25 mg tablet 25 mg PO BID Qty: 180 RF: 3 ProAir HFA 90 mcg/actuation HFA aerosol inhaler 2 puff INHALATION QID PRN (Reason: Shortness Of Breath) Qty: 8.5 RF: 2 multivitamin [Multiple Vitamins] Tablet 1 tab PO DAILY@08 RF: 0 lactulose 20 gram/30 mL Solution 10 g PO DAILY PRN (Reason: constipation) Qty: 1200 RF: 0 polyethylene glycol 3350 [Miralax] 17 gram Powder In Packet 17 g PO DAILY Qty: 60 RF: 0 trazodone 100 mg Tablet 100 - 300 mg PO BEDTIME@21 RF: 0 Discharge Orders: Discharge ED (Routine); Ordered 07/27/20 Ordered By: Matias Espana Referrals: Brisa Jensen, JUDICIAL REGISTRAR-C [Primary Care Provider] - Discharge Diet: Advance as tolerated Discharge Activity: Increase activity as tolerated Patient Instructions: Constipation (ED), Urinary Retention in Men (ED), Miranda Catheter Placement and Care (ED) Activity Restrictions/Additional Instructions: Referral will be made for you to see Dr. Chaney regarding urinary retention. Use your MiraLAX at least twice daily for constipation after you use the magnesium citrate at home. Return for fever, vomiting liquids, other concerning symptoms. Coding Level of Care Code ED Absorber Operator for Katiuska Carter
--- NOTE | 2020-07-27 09:49 | DCPLANNER ---
manager studio had message to schedule a follow up appointment for patient with Dr. Chaney. manager studio called the office of Dr. Chaney, spoke with Cady, gave clinic patients information. manager studio was told that patients information would be printed and reviewed. Clinic will call patient with appointment information.
[2020-07-27 11:44] VITALS: BP 185/85; PULSE 50; RESP 15; O2SAT 97
--- NOTE | 2020-07-28 08:31 | DCPLANNER ---
Patient has a follow up appointment scheduled for Monday, July 29, 2020 at 3:[address] Chaney. Clinic will call patient with appointment information.
--- NOTE | 2020-07-30 14:25 | DCPLANNER ---
Patient had a follow up appointment scheduled for 07.29.[address] Chaney - patient did attend appointment.
== END 2020-07-27 11:46 | disposition home or self-care (01) ==
PROVIDERS: Emergency Provider Emergency Medicine; PCP Nurse Practitioner
DX: R33.9 Retention of urine, unspecified (principal); K56.41 Fecal impaction; Z79.01 Long term (current) use of anticoagulants; I11.0 Hypertensive heart disease with heart failure; I50.33 Acute on chronic diastolic (congestive) heart failure; I25.10 Atherosclerotic heart disease of native coronary artery without angina pectoris; J44.9 Chronic obstructive pulmonary disease, unspecified; E78.5 Hyperlipidemia, unspecified; F03.90 Unspecified dementia, unspecified severity, without behavioral disturbance, psychotic disturbance, mood disturbance, and anxiety; Z95.1 Presence of aortocoronary bypass graft; Z87.891 Personal history of nicotine dependence
CPT/HCPCS: 12345; 51702; 74022; 80053; 81001; 83735; 85025; 87077; 87086; 87186; 99283; 99284

== ENCOUNTER 2020-08-27 19:06 | Emergency (ER) | payer MEDICARE, MEDICAID, SELFPAY ==
[2020-08-27 19:19] VITALS: BP 132/77; PULSE 86; RESP 18; TEMP 37.3; O2SAT 90; BMI 27.1
--- NOTE | 2020-08-27 19:29 | XRR_ITS ---
PROCEDURE INFORMATION: Exam: XR Chest, 1 View Exam date and time: 08/27/2020 7:44 PM Age: 80 years old Clinical indication: Cough; Prior surgery TECHNIQUE: Imaging protocol: XR of the chest Views: 1 view. COMPARISON: CR XR chest 1V portable [id number] 07/16/2020 12:49 AM FINDINGS: Lungs: Lungs are well aerated without a focal area of consolidation. Pleural spaces: Unremarkable. No pleural effusion. No pneumothorax. Heart/Mediastinum: Unremarkable. No cardiomegaly. Bones/joints: Prior sternotomy XR/XR chest 1V portable [id number] IMPRESSION: Lungs are well aerated without a focal area of consolidation.
[2020-08-27 19:31] VITALS: BP 137/82; PULSE 80; RESP 14; O2SAT 96
[2020-08-27 19:32] VITALS: BP 137/92; PULSE 79; RESP 16; O2SAT 95
--- NOTE | 2020-08-27 19:40 | ED_ITS ---
HPI - URI/Sore Throat General: Chief Complaint: Upper Respiratory Infection Stated Complaint: thick sputum Time Seen by Provider: 08/27/20 19:13 History of Present Illness: HPI Narrative: Patient complains of sinus drainage, upper respiratory infection times few days said he cannot receive treatment for it. Said now his having some sputum that he is able go back or stop the drainage on back his throat. Denies any shortness of breath fever chills or Covid related symptoms. MD elicited complaint: nasal congestion Onset (ago): week(s) Consistency: constant and progressively worsening Severity: mild Description of mucous: yellow Able to tolerate fluids by mouth: Yes Exacerbating factors: nothing Relieving factors: nothing Associated symptoms: Reports no associated symptoms and nasal congestion (Coughing up sputum from back of throat.); Deny abdominal pain, chills, chest pain, fever(s), headache(s), nausea or vomiting Review of Systems Const: Denies: fever(s), chills or body aches Eyes: Denies: change in vision or blurry vision ENMT: Reports: nasal discharge and nasal congestion (Coughing up sputum from back of throat.); Denies: throat pain Card: Denies: chest pain or dyspnea on exertion Resp: Denies: dyspnea, productive cough or non-productive cough GI: Denies: abdominal pain, nausea or vomiting : Reports: other (Chronic luts, treated); Denies: difficulty urinating Musc: Denies: extremity pain Skin/Breast: Denies: rash Neuro: Denies: headache(s) Psych: Denies: anxiety or depression Jm/Lymph: Denies: easy bruising PFSH ED PFSH: Medical History Acute on chronic congestive heart failure Acute urinary retention Atherosclerotic heart disease of [place] coronary artery without angina pectoris Benign essential hypertension with target blood pressure below 140/90 CAD (coronary artery disease) Chronic constipation Chronic prescription opiate use Chronic prescription opiate use 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 Diastolic heart failure DVT (deep venous thrombosis) Dyslipidemia Generalized anxiety disorder Gram-positive bacteremia 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 History of DVT (deep vein thrombosis) Hx of cervical spinal arthrodesis Hypertension Intervertebral disc disorder with radiculopathy of lumbosacral region Lower abdominal pain Lumbar disc disease Lumbar spondylosis Lumbar stenosis with neurogenic claudication Major depressive disorder, recurrent severe without psychotic features Pain, joint, hand, right Pain, joint, shoulder, right Peripheral vascular disease Radial head fracture SBO (small bowel obstruction) Scoliosis of lumbar spine Skin tear Sleep apnea, unspecified SOB (shortness of breath) Uncircumcised male Unspecified dementia without behavioral disturbance Urinary retention Surgical History History of cervical spinal surgery 1979 [facility] C6-C7 laminectomy/fusion/fixation History of heart artery stent (~2006) History of heart bypass surgery (~2007) History of hernia surgery 4x History of knee surgery Right History of lumbar surgery [facility]. L3-L4, L4-L5, L5-S1 decompression History of uvulopalatopharyngoplasty Hx of CABG Hx of cholecystectomy Family History Father , at age 63 Diabetes Mother , at age 92 Colon cancer Hypertension Social History Smoking and tobacco status: former smoker Second hand smoke exposure: No Smoking risk assessment/counseling performed?: No Alcohol intake: never Desire information about alcohol rehabilitation?: No Counseling given: No Desire information about substance/drug rehabilitation?: No Counseling given: No Adopted: No Caregiver/support person: Yes Lives independently: No Household members: significant other Marital status: Number of children: 5 service: No Current occupational status: disabled History of recent travel: No Current gender identity: Male Physical Exam Const: COMMON NORMALS: no acute distress, average body habitus and patient oriented x3 HENMT: COMMON NORMALS: normocephalic HEAD & SCALP: normal to inspection and normocephalic FACE & SINUS: normal facial exam NOSE: Nasal discharge present Eye: COMMON NORMALS: conjunctivae normal GENERAL EYE: appearance normal, both eyes and all related structures CONJUNCTIVA: Yes conjunctivae normal Neck/C-Spine: COMMON NORMALS: no JVD Chest: COMMONS NORMALS: normal inspection of the chest Resp: COMMON NORMALS: normal respiratory effort and clear to auscultation bilaterally AUSCULTATION: clear to auscultation bilaterally Cardio: COMMON NORMALS: no JVD, regular rate and regular rhythm RATE: regular rate RHYTHM: regular rhythm GI: COMMON NORMALS: Normal to inspection, nondistended, normoactive bowel sounds present Extremity: COMMON NORMALS: normal to inspection and full ROM Neuro: COMMON NORMALS: patient oriented x3 Course Vital Signs: Vital signs: Vital Signs Temperature 99.2 F 08/27/20 19:19 Pulse Rate 79 08/27/20 19:32 Respiratory Rate 16 08/27/20 19:32 Blood Pressure 137/92 08/27/20 19:32 Pulse Oximetry 95 08/27/20 19:32 MDM - URI/Sore Throat MDM Narrative: Medical decision making narrative: Patient interacting with a fine having sinus drainage going on back throat is able cough that up. Patient well-known to us here in the ER. Patient having shortness of breath no fevers denies chills. We will treat for upper respiratory , sinus infection and have patient follow-up with primary care provider first next week Differential Diagnosis: Upper Respiratory Differential Diagnosis: Likely upper respiratory infection, sinusitis, viral infection and bronchitis Imaging Data^: CXR: My impression: Areas consolidation this x-ray is consistent with previous x-rays recently. Discharge Plan Discharge Patient Disposition: Home Clinical Impression: Sinusitis Qualifiers: Sinusitis location: unspecified location Chronicity: acute Recurrence: non- recurrent Qualified Code(s): J01.90 - Acute sinusitis, unspecified Condition: Stable Prescriptions: New levofloxacin 500 mg tablet 500 mg PO DAILY 10 Days RF: 0 Mucinex 1,200 mg tablet extended release 12hr 1,200 mg PO BID PRN (Reason: congestion) Qty: 14 RF: 0 No Action budesonide [Pulmicort] 0.5 mg/2 mL suspension for nebulization 0.5 mg INHALATION BID Qty: 120 RF: 2 Biofreeze (menthol) 4 % gel 1 applic TOPICAL TID PRN (Reason: pain) Qty: 118 RF: 0 sertraline 100 mg tablet 100 mg PO DAILY Qty: 30 RF: 2 quetiapine [Seroquel] 50 mg tablet 50 mg PO .HS Qty: 30 RF: 2 tamsulosin 0.4 mg capsule 0.4 mg PO DAILY RF: 0 methenamine hippurate 1 gram tablet 1 g PO BID Qty: 60 RF: 12 cefuroxime axetil 500 mg tablet 500 mg PO BID Qty: 20 RF: 0 nitroglycerin [Nitrostat] 0.4 mg tablet, sublingual 0.4 mg SUBLINGUAL Q5M PRN (Reason: Chest Pain) Qty: 100 RF: 2 Lasix 40 mg tablet 40 mg PO DAILY Qty: 90 RF: 3 Eliquis 5 mg tablet 5 mg PO BID Qty: 180 RF: 3 metoprolol tartrate 25 mg tablet 25 mg PO BID Qty: 180 RF: 3 ProAir HFA 90 mcg/actuation HFA aerosol inhaler 2 puff INHALATION QID PRN (Reason: Shortness Of Breath) Qty: 8.5 RF: 2 Amitiza 24 mcg capsule 24 mcg PO BID 30 Days Qty: 60 RF: 2 multivitamin [Multiple Vitamins] Tablet 1 tab PO DAILY@08 RF: 0 lactulose 20 gram/30 mL Solution 10 g PO DAILY PRN (Reason: constipation) Qty: 1200 RF: 0 polyethylene glycol 3350 [Miralax] 17 gram Powder In Packet 17 g PO DAILY Qty: 60 RF: 0 trazodone 100 mg Tablet 100 - 300 mg PO BEDTIME@21 RF: 0 Discharge Orders: Discharge ED (Routine); Ordered 08/27/20 Ordered By: Jayesh Kearns Referrals: Brisa Jensen, STRATEGIC DEVELOPMENT MANAGER-C [Primary Care Provider] - Discharge Diet: Usual diet Discharge Activity: Resume usual activity Patient Instructions: Sinusitis (ED) Activity Restrictions/Additional Instructions: Follow-up with medical provider as directed. Take medications as prescribed. Return to the ER or your medical provider if condition worsens. Please read and understand discharge instructions. If any questions ask please. Coding Level of Care Code ED Supervisor Braiding for Katiuska Fwd Exam Comprehensive
== END 2020-08-27 20:04 | disposition home or self-care (01) ==
PROVIDERS: Emergency Provider Nurse Practitioner Family; PCP Nurse Practitioner
DX: J01.90 Acute sinusitis, unspecified (principal); Z79.01 Long term (current) use of anticoagulants; I25.10 Atherosclerotic heart disease of native coronary artery without angina pectoris; I11.0 Hypertensive heart disease with heart failure; I50.30 Unspecified diastolic (congestive) heart failure; J44.9 Chronic obstructive pulmonary disease, unspecified; E78.5 Hyperlipidemia, unspecified; Z95.1 Presence of aortocoronary bypass graft; Z87.891 Personal history of nicotine dependence
CPT/HCPCS: 71045; 99282

== ENCOUNTER 2020-09-09 23:21 | Inpatient (IN) | payer MEDICARE, MEDICAID, SELFPAY ==
[2020-09-09 23:30] VITALS: BP 144/80; PULSE 107; RESP 18; TEMP 36.6; O2SAT 98; BMI 27.1
--- NOTE | 2020-09-09 23:46 | XRR_ITS ---
PROCEDURE INFORMATION: Exam: XR Abdomen Exam date and time: 09/09/2020 11:50 PM Age: 80 years old Clinical indication: Constipation TECHNIQUE: Imaging protocol: XR of the abdomen. Views: 2 Views. Upright and supine views. COMPARISON: CR XR acute abdomen series [id number] 07/26/2020 10:12 PM FINDINGS: Limitations: Study is limited by portable technique. Gastrointestinal tract: There is a large amount of feces throughout the colon consistent with clinical history of constipation. Bones/joints: There are degenerative changes in the lumbar spine. XR/XR abdomen min 2V [id number] IMPRESSION: Findings are consistent with clinical history of constipation.
[2020-09-10] VITALS (9 sets, daily range): BP systolic 124–136; BP diastolic 61–72; PULSE 81–108; RESP 16–20; TEMP 36.6–37.4; O2SAT 89–95
--- NOTE | 2020-09-10 00:20 | ED_ITS ---
HPI - Abdominal Pain General: Chief Complaint: Abdominal Pain Stated Complaint: lower back, constipation Time Seen by Provider: 09/09/20 23:44 Source: patient Mode of arrival: ambulatory Limitations: no limitations History of Present Illness: HPI narrative: 80-year-old male patient presents to the emergency department with constipation. He reports has been, digging to attempt to obtain bowel movement. He reports mild abdominal pain, denies nausea vomiting diarrhea, denies fever or chills, states is able to eat without difficulty. He reports his back feels pressure due to inability to poop. He reports chronic problem with constipation after hernia mesh repair 10 years ago. He is a poor historian, spouse is with him and is not able to answer questions such as when his last bowel movement was. He is not in distress. He is requesting something to drink upon exam. Patient states has tried mag citrate 3 days ago, takes MiraLAX daily, has not attempted an enema Patient reports continues with pain management due to chronic low back pain, remains on hydrocodone routinely. Spouse reports he recently completed antibiotic treatment for urinary tract infection. He receives oxygen at home chronically due to COPD. Pertinent past history: constipation Pain Consistency: constant Migration to: suprapubic Associated Symptoms: Reports bloating and constipation; Denies belching, change in stool character, chills, diarrhea, dysuria, fever(s), heartburn, hematemesis, nausea and vomiting Review of Systems General: Reports: 10 or more systems reviewed and unremarkable except in HPI and below Const: Reports: fatigue (chronic); Denies: fever(s), chills or diaphoresis Eyes: Denies: blurry vision or eye redness ENMT: Denies: throat pain, dental pain or disequilibrium Card: Denies: chest pain, palpitations, irregular heart rhythm, swelling of feet/ankles, lightheadedness or dyspnea on exertion Resp: Denies: dyspnea, productive cough, non-productive cough or wheezing GI: Reports: abdominal pain, constipation and bloating; Denies: nausea, vomiting, hematemesis, heartburn, diarrhea, belching, pain on defecation, rectal pain, rectal swelling, rectal itching or change in stool character : Denies: dysuria Musc: Reports: back pain (Lower back - chronic); Denies: neck pain, joint stiffness, muscle cramps or muscle weakness Skin/Breast: Denies: rash or pruritus Neuro: Reports: difficulty walking (chronic); Denies: headache(s), numbness in extremities, weakness in extremities or behavioral changes Psych: Denies: anxiety, depression, mood swings, panic attacks or change in appetite Jm/Lymph: Denies: easy bruising PFSH ED PFSH: Medical History Acute on chronic congestive heart failure Acute urinary retention Atherosclerotic heart disease of [place] coronary artery without angina pectoris Benign essential hypertension with target blood pressure below 140/90 CAD (coronary artery disease) Chronic constipation Chronic prescription opiate use Chronic prescription opiate use 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 Diastolic heart failure DVT (deep venous thrombosis) Dyslipidemia Generalized anxiety disorder Gram-positive bacteremia 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 History of DVT (deep vein thrombosis) Hx of cervical spinal arthrodesis Hypertension Intervertebral disc disorder with radiculopathy of lumbosacral region Lower abdominal pain Lumbar disc disease Lumbar spondylosis Lumbar stenosis with neurogenic claudication Major depressive disorder, recurrent severe without psychotic features Pain, joint, hand, right Pain, joint, shoulder, right Peripheral vascular disease Radial head fracture SBO (small bowel obstruction) Scoliosis of lumbar spine Skin tear Sleep apnea, unspecified SOB (shortness of breath) Uncircumcised male Unspecified dementia without behavioral disturbance Urinary retention Surgical History History of cervical spinal surgery 1979 [facility] C6-C7 laminectomy/fusion/fixation History of heart artery stent (~2006) History of heart bypass surgery (~2007) History of hernia surgery 4x History of knee surgery Right History of lumbar surgery [facility]. L3-L4, L4-L5, L5-S1 decompression History of uvulopalatopharyngoplasty Hx of CABG Hx of cholecystectomy Family History Father , at age 63 Diabetes Mother , at age 92 Colon cancer Hypertension Social History Smoking and tobacco status: former smoker Second hand smoke exposure: No Smoking risk assessment/counseling performed?: No Alcohol intake: never Desire information about alcohol rehabilitation?: No Counseling given: No Desire information about substance/drug rehabilitation?: No Counseling given: No Adopted: No Caregiver/support person: Yes Lives independently: No Household members: significant other Marital status: Number of children: 5 service: No Current occupational status: disabled History of recent travel: No Current gender identity: Male Physical Exam Const: COMMON NORMALS: no acute distress, patient oriented x3, alert and well nourished EXAM LIMITATIONS: no altered mental status and no behavioral limitations GENERAL APPEARANCE: cooperative, comfortable, disheveled and well hydrated; not ill appearing ORIENTATION/CONSCIOUSNESS: Yes awake, Yes oriented to person, Yes oriented to place and Yes oriented to time HENMT: COMMON NORMALS: normocephalic, atraumatic, Normal external nose present and moist oral mucous membranes HEAD & SCALP: normal to inspection, normocephalic and atraumatic FACE & SINUS: normal facial exam and face symmetric NOSE: Normal external nose present MOUTH: Normal oral and palatal mucosa present and tongue normal THROAT: posterior oropharynx normal and uvula midline Eye: COMMON NORMALS: Equal, round and reactive pupils present and EOMs intact bilaterally GENERAL EYE: appearance normal, both eyes and all related structures PUPIL: Yes Equal, round and reactive pupils present Neck/C-Spine: COMMON NORMALS: full ROM and no lymphadenopathy GENERAL: Yes normal visual inspection and Yes trachea midline CERVICAL SPINE: Yes cervical ROM normal Lymph: LYMPHATIC: no lymphadenopathy noted Chest: COMMONS NORMALS: normal inspection of the chest and normal palpation of entire chest wall Resp: COMMON NORMALS: normal respiratory effort, No retractions, No use of accessory muscles and clear to auscultation bilaterally EFFORT & INSPECTION: Yes able to speak in complete sentences, No labored, No retractions and No audible wheezes AUSCULTATION: clear to auscultation bilaterally Cardio: COMMON NORMALS: regular rate, regular rhythm, S1 normal heart sound present, S2 normal heart sound present and Peripheral pulses 2+ throughout RATE: regular rate RHYTHM: regular rhythm HEART SOUNDS: S1 normal heart sound present and S2 normal heart sound present PERIPHERAL PULSES: Peripheral pulses 2+ throughout GI: COMMON NORMALS: Normal to inspection, nondistended, normoactive bowel sounds present INSPECTION: Yes normal to inspection, No abdominal wall ecchymosis, No Abdominal wall edema, Yes abdominal distension, No central obesity and No visible herniation AUSCULTATION: Yes normoactive bowel sounds PALPATION: Yes Firmness to palpation present (GI), Yes Tenderness to palpation present (GI) Details: RLQ and LUQ, No Guarding due to palpation present (GI), No Rigid due to palpation, No Palpable mass present, No Abdominal wall crepitus present and No Rebound tenderness present : COMMON NORMALS: Yes no CVA tenderness BLADDER/KIDNEY EXAM: Yes no CVA tenderness Back/Pelvis: COMMON NORMALS: no CVA tenderness and thoracic and lumbar spine normal to inspection Extremity: COMMON NORMALS: capillary refill normal, no clubbing, cyanosis or edema and no pedal edema GENERAL: Yes normal exam except as noted Neuro: COMMON NORMALS: patient oriented x3 and no focal motor deficits SENSORIUM/ORIENTATION: Yes alert, Yes oriented to person, Yes oriented to place and Yes oriented to time Psych: COMMON NORMALS: mental status grossly normal, Normal thought process present and cooperative ACTIVITY/MOTOR BEHAVIOR: Yes appropriate eye contact THOUGHT PROCESS: Normal thought process present Skin: COMMON NORMALS: no rashes or lesions noted, no wounds, turgor normal, no petechiae and no mottling GENERAL SKIN EXAM: no rashes or lesions noted, turgor normal, dry skin and no erythema LESIONS: no lesions RASHES: no rashes HAIR: general thinning NAILS: discolored and other (visible debris) Course ED course: 80-year-old male patient presents to the emergency department with constipation and abdominal pain. He is not able to verbalize last bowel movement. He reports taking out fecal material to attempt bowel movement at [facility]. White blood count noted to be elevated, 17.8 thousand, hemoglobin 9.4/hematocrit 31.1 which is near baseline, chronic anemia. Potassium noted to be 3.2 was replaced with 40 mEq of potassium orally. Lactic acid noted to be elevated 4.0, blood cultures x2 obtained and remain pending. Due to serology findings and complaints of abdominal pain, CT abdomen and pelvis completed. Impression constipation, mild right hydronephrosis and hydroureter and thickening of the urinary bladder. Patient recently treated for urinary tract infection, cefuroxime, previous urinary culture with Klebsiella pneumonia, 40- 50,000 colonies. Urine pending at this time, spoke with hospitalist Dr Ann who recommend observation with treatment of Cipro and Flagyl. Because of elevated lactic acid unknown at this time. Consultations: Consultation #1: Dr Ann, hospitalist, discussed findings including lactic acid of 4.0, white blood count 17.[address] scan abdomen and pelvis with IV contrast discussed findings as per radiologist with colonic constipation, mild right hydronephrosis and hydroureter. Discussed patient received 500 cc normal saline, did not receive more secondary to congestive heart failure history. Advised to treat patient with IV Cipro and Flagyl with admission to observation. Time: 02:40 Vital Signs: Vital signs: Vital Signs Temperature 97.9 F 09/09/20 23:30 Pulse Rate 107 H 09/09/20 23:30 Respiratory Rate 16 09/10/20 01:27 Blood Pressure 144/80 09/09/20 23:30 Pulse Oximetry 89 L 09/10/20 01:27 MDM - Abdominal Pain Differential Diagnosis: Differential diagnosis abdominal pain: Likely abdominal pain, constipation, gastroenteritis and small bowel obstruction Lab Data: Labs: Lab Results 09/10/20 09/10/20 09/10/20 Range/Units 00:18 00:18 00:18 WBC 17.8 H (4.0-10.0) 10^3/ uL RBC 3.82 L (4.1-5.3) 10^6/u L Hgb 9.4 L (11.7-16.6) g/dL Hct 31.1 L (42.0-52.0) % MCV 81.4 (80-94) fL MCH 24.6 L (28.0-34.0) pg MCHC 30.2 (30.0-36.0) g/dL RDW 16.2 H (12.1-15.1) % Plt Count 384 (130-400) 10^3/c mm MPV 9.9 (7.4-10.4) fL Neut % (Auto) 84.6 % Lymph % (Auto) 6.8 % [place] % (Auto) 7.0 % Eos % (Auto) 0.6 % Baso % (Auto) 0.6 % Neut # (Auto) 15.08 H (1.8-7.7) 10^3/u L Lymph # (Auto) 1.2 (0.8-4.8) 10^3/u L [place] # (Auto) 1.2 H (0.2-0.9) 10^3/u L Eos # (Auto) 0.1 (0.0-0.8) 10^3/u L Baso # (Auto) 0.1 (0.0-0.1) 10^3/u L Nucleated RBC % (a uto) 0 % Nucleated RBCs # 0.0 /100WBC Sodium 140 (136-145) mmol/L Potassium 3.2 L (3.5-5.1) mmol/L Chloride 98 (98-107) mmol/L Carbon Dioxide 27 (22-29) mmol/L Anion Gap 18.2 (5-19) BUN 12 (8-23) mg/dL Creatinine 1.2 (0.7-1.2) mg/dL GFR Calculation Not Reportable Glucose 157 H (65-115) mg/dL Calculated Osmolal ity 293 (285-295) mOsm/k g Lactate 4.0 H (0.5-2.2) mmol/L Calcium 9.2 (8.5-10.5) mg/dL Total Bilirubin 0.2 (0.15-1.2) mg/dL AST 13 (0-40) U/L ALT 7 (0-41) U/L Alkaline Phosphata se 80 (40-130) IU/L Total Protein 8.2 (6.6-8.7) g/dL Albumin 4.0 (3.5-5.2) g/dL Globulin 4.2 (1.3-4.6) g/dL Lipase 20 (13-60) U/L Urine Color (Yellow) Urine Appearance (CLEAR) Urine pH (5-7) Ur Specific Gravit y (1.005-1.030) Urine Protein (Negative) Urine Glucose (UA) (Normal) Urine Ketones (Negative) Urine Blood (Negative) Urine Nitrate (Negative) Urine Bilirubin (Negative) Urine Urobilinogen (Negative) mg/dL Ur Leukocyte Kamini ase (Negative) Urine RBC (0-2) /hpf Urine WBC (0-5) /hpf Ur Squamous Epith Cells (0-5) /hpf Amorphous Sediment Urine Bacteria (NONE) /hpf Urine Yeast /hpf 03/04 Range/Units 02:27 WBC (4.0-10.0) 10^3/ uL RBC (4.1-5.3) 10^6/u L Hgb (11.7-16.6) g/dL Hct (42.0-52.0) % MCV (80-94) fL MCH (28.0-34.0) pg MCHC (30.0-36.0) g/dL RDW (12.1-15.1) % Plt Count (130-400) 10^3/c mm MPV (7.4-10.4) fL Neut % (Auto) % Lymph % (Auto) % [place] % (Auto) % Eos % (Auto) % Baso % (Auto) % Neut # (Auto) (1.8-7.7) 10^3/u L Lymph # (Auto) (0.8-4.8) 10^3/u L [place] # (Auto) (0.2-0.9) 10^3/u L Eos # (Auto) (0.0-0.8) 10^3/u L Baso # (Auto) (0.0-0.1) 10^3/u L Nucleated RBC % (a uto) % Nucleated RBCs # /100WBC Sodium (136-145) mmol/L Potassium (3.5-5.1) mmol/L Chloride (98-107) mmol/L Carbon Dioxide (22-29) mmol/L Anion Gap (5-19) BUN (8-23) mg/dL Creatinine (0.7-1.2) mg/dL GFR Calculation Glucose (65-115) mg/dL Calculated Osmolal ity (285-295) mOsm/k g Lactate (0.5-2.2) mmol/L Calcium (8.5-10.5) mg/dL Total Bilirubin (0.15-1.2) mg/dL AST (0-40) U/L ALT (0-41) U/L Alkaline Phosphata se (40-130) IU/L Total Protein (6.6-8.7) g/dL Albumin (3.5-5.2) g/dL Globulin (1.3-4.6) g/dL Lipase (13-60) U/L Urine Color Yellow (Yellow) Urine Appearance Hazy A (CLEAR) Urine pH 5 (5-7) Ur Specific Gravit y 1.010 (1.005-1.030) Urine Protein Neg (Negative) Urine Glucose (UA) Norm (Normal) Urine Ketones Negative (Negative) Urine Blood 2+ H (Negative) Urine Nitrate Negative (Negative) Urine Bilirubin Neg (Negative) Urine Urobilinogen Norm (Negative) mg/dL Ur Leukocyte Kamini ase Negative (Negative) Urine RBC Rare (0-2) /hpf Urine WBC 5-10 H (0-5) /hpf Ur Squamous Epith Cells None (0-5) /hpf Amorphous Sediment Not Reportable Urine Bacteria 4+ H (NONE) /hpf Urine Yeast 2+ H /hpf Imaging Data ^: Other Imaging: Radiologist's impression: [facility] [address] [place] [address] XRay Report Signed Patient: Anurag Rios Unit #: [id number] : 1940 Age/Sex: 80 / M ADM Date: 09/09/20 Loc: ER Room/Bed: Attending Dr: Ordering Provider/Ordering MD: Stephanie Esqueda Date of Service: 09/09/20 Procedure(s): XR abdomen min 2V 94003 Accession Number(s): [id number] Report Number: [id number] PROCEDURE INFORMATION: Exam: XR Abdomen Exam date and time: 09/09/2020 11:50 PM Age: 80 years old Clinical indication: Constipation TECHNIQUE: Imaging protocol: XR of the abdomen. Views: 2 Views. Upright and supine views. COMPARISON: CR XR acute abdomen series [id number] 07/26/2020 10:12 PM FINDINGS: Limitations: Study is limited by portable technique. Gastrointestinal tract: There is a large amount of feces throughout the colon consistent with clinical history of constipation. Bones/joints: There are degenerative changes in the lumbar spine. XR/XR abdomen min 2V [id number] IMPRESSION: Findings are consistent with clinical history of constipation. Dictated By: Carlos Alberto Fine Signed By: Carlos Alberto Fine Signed Date/Time: 09/10/2028 DD/ CT Abd/Pel: Radiologist's impression: [facility] [address] [place] [id number] Scan Report Signed Patient: Anurag Rios Unit #: [id number] : 1940 Age/Sex: 80 / M ADM Date: 09/09/20 Loc: ER Room/Bed: Attending Dr: Ordering Provider/Ordering MD: Stephanie Esqueda Date of Service: 09/10/20 Procedure(s): CT abdomen pelvis w con* [id number] Accession Number(s): [id number] Report Number: [id number] PROCEDURE INFORMATION: Exam: CT Abdomen And Pelvis With Contrast Exam date and time: 09/10/2020 12:54 AM Age: 80 years old Clinical indication: Abdominal pain; Generalized; Prior surgery; Surgery type: Gb. Hernia. Lumbar. ; Patient HX: Persistent constipation; Additional info: Abd pain, constipation TECHNIQUE: Imaging protocol: Computed tomography of the abdomen and pelvis with contrast. Radiation optimization: All CT scans at this facility use at least one of these dose optimization techniques: automated exposure control; mA and/or kV adjustment per patient size (includes targeted exams where dose is matched to clinical indication); or iterative reconstruction. Contrast material: VISI 320; Contrast volume: 95 ml; Contrast route: INTRAVENOUS (IV); COMPARISON: CT abdomen pelvis w con* [id number] 06/17/2020 11:10 PM RADIATION DOSE METRICS: Total DLP (mGy-cm): 1759.8 FINDINGS: Liver: There is a tiny simple cyst in the right lobe of the liver. Gallbladder and bile ducts: There has been a cholecystectomy. There is mild intrahepatic biliary tract dilatation which is not unusual post cholecystectomy. Pancreas: The pancreas is normal. Spleen: The spleen is normal. Adrenal glands: The adrenal glands are normal. Kidneys and ureters: There are multiple simple renal cysts. Calcification medial to the right kidney is likely related to vascular calcification. There is mild right hydronephrosis. There is moderate dilatation of the proximal 2/3 of the right ureter but not distally. The cause for the right hydro is not definitely seen on the study but this could be due to compression of the distal ureter by the distended rectum. No ureteral calcification is seen on either side. Stomach and bowel: There is a large amount of feces throughout the colon suggesting constipation. 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 Appendix: A normal appendix is identified. Intraperitoneal space: Unremarkable. No free air. No significant fluid collection. Vasculature: The aorta demonstrates moderate atherosclerotic calcification. There is no evidence of an abdominal aortic aneurysm. Lymph nodes: There are small periaortic lymph nodes but no adenopathy. Urinary bladder: There is moderate thickening of the urinary bladder wall. Please correlate for findings of urinary tract infection. Reproductive: The prostate demonstrates mild nonspecific enlargement. The seminal vesicles are normal. The prostate gland demonstrates nonspecific parenchymal calcifications. Bones/joints: The lumbar spine demonstrates moderate degenerative changes at multiple levels. Soft tissues: Unremarkable. CT/CT abdomen pelvis w con* [id number] IMPRESSION: 1. Constipation 2. Mild right hydronephrosis and hydroureter. 3. Thickening of the urinary bladder wall which could be due to urinary tract infection, or muscular hypertrophy from chronic outlet obstruction. COMMENTS: Consistent with the [employer]'s Incidental Findings Committee white paper (J Am Lolita Radiol 2018): Any incidental renal lesion less than 1 cm or classified as too small to characterize, or any incidental cystic renal lesion characterized as simple-appearing, is likely benign. No follow-up imaging is recommended for these lesions per consensus recommendations based on imaging criteria. Radiation Dose CTDIVOL = (mGy): DLP = 1759.8 (mGy-cm) Dictated By: Carlos Alberto Fine Signed By: Carlos Alberto Fine Signed Date/Time: 09/10/20158 DD/ 6 Discharge Plan Discharge Patient Disposition: Placed in Observation Admit Provider: Benjamín Ann Clinical Impression: Colonic constipation, Elevated lactic acid level Coding Level of Care Code ED Rip Sawyer for Chg Fwd Exam Comprehensive
[2020-09-10 00:48] LABS: Basophils # 0.1 10^3/uL (0.0-0.1); Basophils % 0.6 %; Eosinophils # 0.1 10^3/uL (0.0-0.8); Eosinophils % 0.6 %; Hematocrit 31.1 % (42.0-52.0); Hemoglobin 9.4 g/dL (11.7-16.6); Lymphocytes # 1.2 10^3/uL (0.8-4.8); Lymphocytes % 6.8 %; Mean Corpuscular HGB Conc 30.2 g/dL (30.0-36.0); Mean Corpuscular Hemoglobin 24.6 pg (28.0-34.0); Mean Corpuscular Volume 81.4 fL (80-94); Mean Platelet Volume 9.9 fL (7.4-10.4); Monocytes # 1.2 10^3/uL (0.2-0.9); Neutrophils # 15.08 10^3/uL (1.8-7.7); Neutrophils % 84.6 %; Nucleated Red Blood Cells % 0 %; Platelet Count 384 10^3/cmm (130-400); Red Blood Count 3.82 10^6/uL (4.1-5.3); Red Cell Distribution Width 16.2 % (12.1-15.1); White Blood Count 17.8 10^3/uL (4.0-10.0)
[2020-09-10] MEDS: magnesium citrate Btl 296 mL PO ×2 (00:48→10:54)
[2020-09-10 00:50] LABS: Alanine Aminotransferase 7 U/L (0-41); Alkaline Phosphatase 80 IU/L (40-130); Anion Gap 18.2 (5-19); Aspartate Amino Transferase 13 U/L (0-40); Blood Urea Nitrogen 12 mg/dL (8-23); Calcium 9.2 mg/dL (8.5-10.5); Carbon Dioxide 27 mmol/L (22-29); Chloride 98 mmol/L (98-107); Globulin 4.2 g/dL (1.3-4.6); Glucose 157 mg/dL (65-115); Lipase 20 U/L (13-60); Osmolality Calculated 293 mOsm/kg (285-295); Potassium 3.2 mmol/L (3.5-5.1); Sodium 140 mmol/L (136-145); Total Bilirubin 0.2 mg/dL (0.15-1.2); Total Protein 8.2 g/dL (6.6-8.7)
--- NOTE | 2020-09-10 00:52 | CTR_ITS ---
PROCEDURE INFORMATION: Exam: CT Abdomen And Pelvis With Contrast Exam date and time: 09/10/2020 12:54 AM Age: 80 years old Clinical indication: Abdominal pain; Generalized; Prior surgery; Surgery type: Gb. Hernia. Lumbar. ; Patient HX: Persistent constipation; Additional info: Abd pain, constipation TECHNIQUE: Imaging protocol: Computed tomography of the abdomen and pelvis with contrast. Radiation optimization: All CT scans at this facility use at least one of these dose optimization techniques: automated exposure control; mA and/or kV adjustment per patient size (includes targeted exams where dose is matched to clinical indication); or iterative reconstruction. Contrast material: VISI 320; Contrast volume: 95 ml; Contrast route: INTRAVENOUS (IV); COMPARISON: CT abdomen pelvis w con* [id number] 06/17/2020 11:10 PM RADIATION DOSE METRICS: Total DLP (mGy-cm): 1759.8 FINDINGS: Liver: There is a tiny simple cyst in the right lobe of the liver. Gallbladder and bile ducts: There has been a cholecystectomy. There is mild intrahepatic biliary tract dilatation which is not unusual post cholecystectomy. Pancreas: The pancreas is normal. Spleen: The spleen is normal. Adrenal glands: The adrenal glands are normal. Kidneys and ureters: There are multiple simple renal cysts. Calcification medial to the right kidney is likely related to vascular calcification. There is mild right hydronephrosis. There is moderate dilatation of the proximal 2/3 of the right ureter but not distally. The cause for the right hydro is not definitely seen on the study but this could be due to compression of the distal ureter by the distended rectum. No ureteral calcification is seen on either side. Stomach and bowel: There is a large amount of feces throughout the colon suggesting constipation. 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 Appendix: A normal appendix is identified. Intraperitoneal space: Unremarkable. No free air. No significant fluid collection. Vasculature: The aorta demonstrates moderate atherosclerotic calcification. There is no evidence of an abdominal aortic aneurysm. Lymph nodes: There are small periaortic lymph nodes but no adenopathy. Urinary bladder: There is moderate thickening of the urinary bladder wall. Please correlate for findings of urinary tract infection. Reproductive: The prostate demonstrates mild nonspecific enlargement. The seminal vesicles are normal. The prostate gland demonstrates nonspecific parenchymal calcifications. Bones/joints: The lumbar spine demonstrates moderate degenerative changes at multiple levels. Soft tissues: Unremarkable. CT/CT abdomen pelvis w con* [id number] IMPRESSION: 1. Constipation 2. Mild right hydronephrosis and hydroureter. 3. Thickening of the urinary bladder wall which could be due to urinary tract infection, or muscular hypertrophy from chronic outlet obstruction. COMMENTS: Consistent with the [employer]'s Incidental Findings Committee white paper (J Am Lolita Radiol 2018): Any incidental renal lesion less than 1 cm or classified as too small to characterize, or any incidental cystic renal lesion characterized as simple-appearing, is likely benign. No follow-up imaging is recommended for these lesions per consensus recommendations based on imaging criteria. Radiation Dose CTDIVOL = (mGy): DLP = 1759.8 (mGy-cm)
[2020-09-10] MEDS: iodixanol 320 mg/mL 100mL Btl IV (01:09)
[2020-09-10] MEDS: potassium chloride ER 20 mEq Tablet 40 MEQ PO (01:23)
[2020-09-10] MEDS: sodium chloride 0.9% 500 ML 999 ML IV (01:25)
[2020-09-10] MEDS: ondansetron 2 mg/ML SDV 2 mL 4 MG IVP ×2 (01:25→05:53)
[2020-09-10] MEDS: morphine 4 mg/mL SDV 1 mL IVP (01:27)
[2020-09-10 02:55] LABS: Urine Appearance Hazy (CLEAR); Urine Color Yellow (Yellow); pH Urine 5 (5-7)
[2020-09-10 02:56] LABS: Add Urine Microscopic? YES; Bilirubin Urine Neg (Negative); Blood Urine 2+ (Negative); Glucose Urine UA Norm (Normal); Ketones Urine Negative (Negative); Leukocyte Esterase Urine Negative (Negative); Nitrate Urine Negative (Negative); Protein Urine Neg (Negative); Urobilinogen Urine Norm (Negative)
[2020-09-10] MEDS: ciprofloxacin 400 MG/200 ML PREMIX 200 MG IV ×2 (03:04→17:53)
[2020-09-10 03:09] LABS: RBC Urine RARE /hpf (0-2)
[2020-09-10 03:10] LABS: Add Urine Culture? Yes; Bacteria Urine 4+ /hpf
[2020-09-10] MEDS: acetaminophen 500 mg Tablet 1000 MG PO (03:33)
--- NOTE | 2020-09-10 03:44 | PM.HP ---
Providers/Chief Complaint Admitting Physician: Benjamín Ann Primary Care Provider: MEGGAN Obando Chief Complaint: lower back, constipation History of Present Illness Anurag Rios is a 80 year old male with a history of congestive heart failure, coronary artery disease, atrial fibrillation, chronic constipation presented to the emergency department with a complaint of constipation of several days and associated abdominal pain. Per report patient is a chronic opioid user and I have had multiple bouts of constipation. Blood work in the ED demonstrated leukocytosis. CT abdomen and pelvis report constipation, mild hydronephrosis and bladder wall thickening. Patient had a bowel movement in the ED. he is placed on observation for further management. Review of Systems Narrative: Except as documented, all other systems reviewed and negative. Medications/Allergies Home Medications Medication Instructions Recorded Confirmed Last Taken Type multivitamin [Multiple Vitamins] 1 tab PO DAILY@08 09/25/19 07/29/20 Unknown History nitroglycerin 0.4 mg sublingual 0.4 mg SUBLINGUAL Q5M PRN #100 tab 01/20/20 07/29/20 03/07/20 Rx tablet lactulose 10 g PO DAILY PRN #1200 ml 03/18/20 07/29/20 Unknown Rx polyethylene glycol 3350 [Miralax] 17 g PO DAILY #60 ea 03/18/20 07/29/20 Unknown Rx budesonide 0.5 mg/2 mL suspension 0.5 mg INHALATION BID #120 ml 04/03/20 07/29/20 Unknown Rx for nebulization menthol 4 % topical gel 1 applic TOPICAL TID PRN #118 ml 04/03/20 07/29/20 Unknown Rx quetiapine 50 mg tablet 50 mg PO .HS #30 tab 04/27/20 07/29/20 Unknown Rx sertraline 100 mg tablet 100 mg PO DAILY #30 tab 04/27/20 07/29/20 Unknown Rx furosemide 40 mg tablet 40 mg PO DAILY #90 tab 06/08/20 07/29/20 Unknown Rx apixaban 5 mg tablet 5 mg PO BID #180 tab 06/12/20 07/29/20 Unknown Rx metoprolol tartrate 25 mg tablet 25 mg PO BID #180 tab 06/12/20 07/29/20 Unknown Rx trazodone 100 - 300 mg PO BEDTIME@21 06/18/20 07/29/20 Unknown History tamsulosin 0.4 mg capsule 0.4 mg PO DAILY 06/26/20 07/29/20 Unknown History albuterol sulfate 90 mcg/actuation 2 puff INHALATION QID PRN #8.5 gm 07/19/20 07/29/20 Unknown Rx aerosol inhaler cefuroxime axetil 500 mg tablet 500 mg PO BID #20 tab 07/29/20 07/29/20 Unknown Rx methenamine hippurate 1 gram tablet 1 g PO BID #60 tab 07/29/20 07/29/20 Unknown Rx lubiprostone 24 mcg capsule 24 mcg PO BID 30 Days #60 cap 07/31/20 Unknown Rx guaifenesin [Mucinex] 1,200 mg PO BID PRN #14 tab 08/27/20 Unknown Rx Allergies Allergy/AdvReac Type Severity Reaction Status Date / Time hydromorphone Allergy Mild hives Verified 07/29/20 15:56 PFSH Acute PFSH: Medical History Acute on chronic congestive heart failure Acute urinary retention Atherosclerotic heart disease of morongo coronary artery without angina pectoris Benign essential hypertension with target blood pressure below 140/90 CAD (coronary artery disease) Chronic constipation Chronic prescription opiate use Chronic prescription opiate use 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 Diastolic heart failure DVT (deep venous thrombosis) Dyslipidemia Generalized anxiety disorder Gram-positive bacteremia 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 History of DVT (deep vein thrombosis) Hx of cervical spinal arthrodesis Hypertension Intervertebral disc disorder with radiculopathy of lumbosacral region Lower abdominal pain Lumbar disc disease Lumbar spondylosis Lumbar stenosis with neurogenic claudication Major depressive disorder, recurrent severe without psychotic features Pain, joint, hand, right Pain, joint, shoulder, right Peripheral vascular disease Radial head fracture SBO (small bowel obstruction) Scoliosis of lumbar spine Skin tear Sleep apnea, unspecified SOB (shortness of breath) Uncircumcised male Unspecified dementia without behavioral disturbance Urinary retention Surgical History History of cervical spinal surgery 1979 [facility] C6-C7 laminectomy/fusion/fixation History of heart artery stent (~2006) History of heart bypass surgery (~2007) History of hernia surgery 4x History of knee surgery Right History of lumbar surgery [address] [place] [address]. L3-L4, L4-L5, L5-S1 decompression History of uvulopalatopharyngoplasty Hx of CABG Hx of cholecystectomy Family History Father , at age 63 Diabetes Mother , at age 92 Colon cancer Hypertension Social History Smoking and tobacco status: former smoker Second hand smoke exposure: No Smoking risk assessment/counseling performed?: No Alcohol intake: never Desire information about alcohol rehabilitation?: No Counseling given: No Desire information about substance/drug rehabilitation?: No Counseling given: No Adopted: No Caregiver/support person: Yes Lives independently: No Household members: significant other Marital status: Number of children: 5 service: No Current occupational status: disabled History of recent travel: No Current gender identity: Male Vitals/I&O/Wt Last Vital Signs Temp 97.9 F 09/09/20 23:30 Pulse 107 H 09/09/20 23:30 Resp 16 09/10/20 01:27 BP 144/80 09/09/20 23:30 Pulse Ox 89 L 09/10/20 01:27 Weight last 48 hrs Weight 90.718 kg Physical Exam Const: COMMON NORMALS: no acute distress and patient oriented x3 GENERAL APPEARANCE: disheveled NUTRITIONAL APPEARANCE: obese HENMT: COMMON NORMALS: normocephalic, atraumatic and moist oral mucous membranes Eye: COMMON NORMALS: Equal, round and reactive pupils present, EOMs intact bilaterally, conjunctivae normal and no scleral icterus Neck/C-Spine: COMMON NORMALS: no lymphadenopathy, supple and no JVD Lymph: LYMPHATIC: no lymphadenopathy noted Chest: COMMONS NORMALS: normal inspection of the chest CHEST: Yes Symmetrical chest wall rise Resp: COMMON NORMALS: normal respiratory effort, No use of accessory muscles and clear to auscultation bilaterally Cardio: COMMON NORMALS: no JVD, regular rate, S1 normal heart sound present and S2 normal heart sound present RHYTHM: abnormal rhythm irregularly irregular GI: COMMON NORMALS: Normal to inspection, nondistended, normoactive bowel sounds present, Soft to palpation, non-tender and No hepatosplenomegaly present : COMMON NORMALS: Yes no CVA tenderness Back/Pelvis: COMMON NORMALS: no CVA tenderness, no thoracic nor lumbar tenderness and thoraco-lumbar ROM normal Extremity: COMMON NORMALS: full ROM and no clubbing, cyanosis or edema Neuro: COMMON NORMALS: patient oriented x3, CN's II-XII intact bilaterally and no focal motor deficits Psych: COMMON NORMALS: mental status grossly normal and Normal thought process present Skin: COMMON NORMALS: turgor normal and no jaundice Data : 09/10/20 00:18 09/10/20 00:18 Micro: Microbiology 09/10/20 01:41 Blood Culture - Preliminary Blood SPECIMEN COLLECTED 09/10/20 01:47 Blood Culture - Preliminary Blood SPECIMEN COLLECTED A&P Assessment and plan (1) Elevated lactic acid level: Status: Acute (2) Leukocytosis: Status: Acute (3) Chronic constipation: Status: Acute (4) Diastolic heart failure: Status: Acute Qualifiers: Heart failure chronicity: chronic Qualified Code(s): I50.32 - Chronic diastolic (congestive) heart failure Additional A&P Information Place patient under observation. Gentle hydrate with IV normal saline. Treat constipation with oral mag citrate and Fleet enema. Leukocytosis may be secondary to hemoconcentration from dehydration. Empiric IV Flagyl and ciprofloxacin Monitor CBC. Hold Lasix today. Continue other home medications. Attestations Medical Necessity Statement*: Patient with chronic constipation presented with leukocytosis. He would need to be hospitalized for further investigating to rule out sepsis. He is expected to spend less than 2 midnights. Coding Level of Care Code Acute It Project Manager for g Fwd Exam Comprehensive Diagnoses Elevated lactic acid level R79.89 Leukocytosis D72.829 Chronic constipation K59.09 Diastolic heart failure I50.32 Heart failure chronicity: chronic
[2020-09-10] MEDS: metroNIDAZOLE IV 500 MG/100 ML PREMIX 100 MG IV ×3 (05:16→20:49)
[2020-09-10] MEDS: enoxaparin 40 mg/0.4 mL Syringe SUBCUT (05:33)
[2020-09-10] MEDS: sodium chloride 0.9% 1,000 ML 50 ML IV (05:34)
[2020-09-10] MEDS: budesonide 0.5 mg/2 mL Neb INHALATION (08:46)
[2020-09-10] MEDS: sennosides 8.6 mg Tablet 17.2 MG PO ×2 (08:55→17:54)
[2020-09-10] MEDS: acetaminophen 325 mg Tablet 650 MG PO ×2 (08:55→20:52)
[2020-09-10] MEDS: FUROsemide 40 mg Tablet PO (08:55)
--- NOTE | 2020-09-10 10:27 | P.PN_ITS ---
Subjective Subjective: Interval history: Patient reports that he has been having constipation for some time and has 2 frequently manually disimpact. He had apparently hernia repair because it got busted . Reports that he fell approximately 2 years ago and since then he has been having some numbness in his right upper extremity and shoulder. He denies chest pain or shortness of breath. Reports abdominal pain mostly on the left lower quadrant. Some conflicting information noted regarding his analgesics he takes at home for chronic back pain. Patient reports that 2 months ago he stopped taking oxycodone and since then has been taking aspirin 3 and 25 mg twice daily. Reports that he did not take any opioid medications for the last 2 months. Vitals/I&O/Wt Last Vital Signs Temp 98.4 F 09/10/20 08:00 Pulse 97 09/10/20 08:52 Resp 20 H 09/10/20 08:48 BP 124/61 09/10/20 08:00 Pulse Ox 93 09/10/20 08:48 09/09/20 09/10/20 09/10/20 22:59 06:59 14:59 Intake Total 490 / 490 240 / 240 Output Total 350 / 350 Balance 140 / 140 240 / 240 Weight last 48 hrs Weight 90.718 kg Physical Exam Narrative: EXAM NARRATIVE: Lungs are clear and heart is regular. Abdomen is soft tender mostly at the left lower quadrant but abdomen is nonsurgical.. No l ower extremity swelling. Data : 09/10/20 00:18 09/10/20 00:18 Micro: Microbiology 09/10/20 01:41 Blood Culture - Preliminary Blood SPECIMEN COLLECTED 09/10/20 01:47 Blood Culture - Preliminary Blood SPECIMEN COLLECTED A&P Assessment and plan (1) Urinary tract infection: Appears to be acute pyelonephritis. With evidence of mild right hydronephrosis and hydroureter. Status: Acute (2) Colonic constipation: Status: Acute (3) Dehydration: Status: Acute (4) Hypokalemia: Status: Acute (5) Severe sepsis: As exhibited by tachycardia, leukocytosis and elevated lactic acid. Patient was not tachypneic and was afebrile. Present on admission. Status: Acute Additional A&P Information PLAN: Patient is at risk for fluid overload therefore will hydrate only at 75 mill per hour with close monitoring. Monitor urinary output. Consider Miranda catheter placement. Add ceftriaxone for treatment of UTI. Repeat lactic acid and consider discontinuing ciprofloxacin and Flagyl. Continue with bowel regimen including Enema. Clinically is not in heart failure. Blood culture and urine culture were obtained earlier. Since patient stay will cross 2 midnights I will change admission status to inpatient. Attestations Medical Necessity Statement*: Patient with sepsis and UTI requires close inpatient monitoring and treatment. I expect patient will require more than 2 midnights. Time Spent in Patient Care: Greater than 35 minutes Coding Level of Care Code Acute Chemical Laboratory Technician for [facility] Fwd Diagnoses Urinary tract infection N39.0 Colonic constipation K59.00 Dehydration E86.0 Hypokalemia E87.6 Severe sepsis A41.9; R65.20
[2020-09-10] MEDS: Fleet Enema 133 mL Enema PR (10:55)
[2020-09-10 13:54] LABS: Lactate (Lactic Acid level) 3.2 mmol/L (0.5-2.2)
[2020-09-10] MEDS: cefTRIAXone 2,000 MG in sodium chloride 0.9% (plus) 50 ML 100 MG IV (14:29)
[2020-09-10] MEDS: lactated ringers 1,000 ML 75 ML IV (14:29)
--- NOTE | 2020-09-10 16:01 | PC.PHAR ---
Called life partner, Pat, twice with no answer. Pt is unable to verify meds
[2020-09-11] VITALS (11 sets, daily range): BP systolic 120–156; BP diastolic 7–71; PULSE 67–94; RESP 17–19; TEMP 36.3–37.4; O2SAT 90–97
[2020-09-11] MEDS: lactated ringers 1,000 ML 75 ML IV ×2 (02:15→15:49)
[2020-09-11] MEDS: ciprofloxacin 400 MG/200 ML PREMIX 200 MG IV ×2 (03:29→18:00)
[2020-09-11] MEDS: enoxaparin 40 mg/0.4 mL Syringe SUBCUT (05:38)
[2020-09-11] MEDS: metroNIDAZOLE IV 500 MG/100 ML PREMIX 100 MG IV ×2 (05:39→12:17)
[2020-09-11] MEDS: acetaminophen 325 mg Tablet 650 MG PO ×2 (05:44→12:18)
[2020-09-11 05:46] LABS: Basophils # 0.1 10^3/uL (0.0-0.1); Basophils % 0.8 %; Eosinophils # 0.4 10^3/uL (0.0-0.8); Eosinophils % 3.6 %; Hematocrit 27.9 % (42.0-52.0); Hemoglobin 8.2 g/dL (11.7-16.6); Lymphocytes # 2.2 10^3/uL (0.8-4.8); Mean Corpuscular HGB Conc 29.4 g/dL (30.0-36.0); Mean Corpuscular Hemoglobin 24.6 pg (28.0-34.0); Mean Corpuscular Volume 83.8 fL (80-94); Mean Platelet Volume 9.4 fL (7.4-10.4); Monocytes # 0.8 10^3/uL (0.2-0.9); Monocytes % 7.7 %; Neutrophils # 6.88 10^3/uL (1.8-7.7); Neutrophils % 66.6 %; Nucleated Red Blood Cells % 0 %; Platelet Count 303 10^3/cmm (130-400); Red Blood Count 3.33 10^6/uL (4.1-5.3); Red Cell Distribution Width 16.4 % (12.1-15.1); White Blood Count 10.3 10^3/uL (4.0-10.0)
[2020-09-11 06:10] LABS: Anion Gap 8.8 (5-19); Blood Urea Nitrogen 11 mg/dL (8-23); Calcium 8.7 mg/dL (8.5-10.5); Carbon Dioxide 34 mmol/L (22-29); Chloride 101 mmol/L (98-107); Creatinine Clr Calc Pharmacy 74.1534; Glucose 98 mg/dL (65-115); Osmolality Calculated 289 mOsm/kg (285-295); Potassium 3.8 mmol/L (3.5-5.1); Procalcitonin 0.87 ng/mL (0-0.5); Sodium 140 mmol/L (136-145); Thyroid Stimulating Hormone 1.92 uIU/mL (0.27-4.20)
[2020-09-11] MEDS: budesonide 0.5 mg/2 mL Neb INHALATION ×2 (08:47→20:07)
[2020-09-11] MEDS: FUROsemide 40 mg Tablet PO (09:26)
--- NOTE | 2020-09-11 13:54 | PC.CHAP ---
Pastoral Care Encounter/Spiritual Assessment Type of Contact [] Declined asset protection professional visit [] Patient/Family/Request visit [] Outpatient visit [] Follow-up visit [] Physician referral [] Code/Alert [xx] Routine visit [] Staff referral [] Actively dying [] Patient sleeping [] Family support [] [] Out of room [] Palliative care [] [] Receiving care in room [] Pre-surgical visit [] Trauma [] Long length of stay [] ICU visit [] Other: Relational/Emotional Strength [xx] Patient feels connected with others/family/visitors/staff [] Distress [] Loneliness/isolation [] Abandonment Spirituality of Patient [xx] Person of Vanna [] Attends Temple of their Vanna [xx] Believes in Prayer [] Reads Bible or Jainism materials [] There are Spiritual issues to be addressed Marker Delivery Interventions [xx] Prayer [xx] Active listening [xx] Non-anxious presence [] Spiritual/emotional support [] Crisis/trauma care [] Spiritual counseling [] Bereavement support [] Provided bereavement packet [] Provided Bible/devotional materials [] Provided toy/stuffed animal, coloring book to patient or family member [] Provided Communion [] Anointing/[place] [] Salvation [xx] Completed spiritual assessment [] Other: Impact on Illness or Injury [] Angry [] Fearful [] Anxious [] Often cries [] Exhaustion [] Unable to work [] Unable to attend lutheran [] Unable to walk/stand [] Unable to read [] Unable to drive [] Unable to eat/drink [] Unable to sleep [] Unable to be with family [] Patient intubated [] Other: Summary Patient wanted prayer only as he was nauseated and did not want to embarrass himself during a visit. Time spent with patient 3 minutes
[2020-09-11] MEDS: cefTRIAXone 2,000 MG in sodium chloride 0.9% (plus) 50 ML 100 MG IV (14:36)
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
[2020-09-11] MEDS: vancomycin 1,500 MG/300 ML PIGGYBACK 200 MG IV (18:00)
[2020-09-11] MEDS: metoprolol tartrate 25 mg Tablet PO (18:01)
[2020-09-11] MEDS: pregabalin 50 mg Capsule PO (18:01)
[2020-09-11] MEDS: pantoprazole DR 40 mg Tablet PO (18:01)
[2020-09-11] MEDS: quetiapine 25 mg Tablet 50 MG PO (21:26)
[2020-09-11] MEDS: trazodone 100 mg Tablet PO (21:26)
[2020-09-12] VITALS (8 sets, daily range): BP systolic 130–152; BP diastolic 66–73; PULSE 71–88; RESP 16–18; TEMP 36.4–36.8; O2SAT 91–97
[2020-09-12] MEDS: ciprofloxacin 400 MG/200 ML PREMIX 200 MG IV (04:31)
[2020-09-12] MEDS: enoxaparin 40 mg/0.4 mL Syringe SUBCUT (04:31)
[2020-09-12] MEDS: acetaminophen 325 mg Tablet 650 MG PO ×3 (04:31→17:33)
[2020-09-12] MEDS: lactated ringers 1,000 ML 75 ML IV (04:42)
[2020-09-12 06:25] LABS: Lactic Sepsis W/Reflex 0.6 mmol/L (0.5-2.2)
[2020-09-12 06:32] LABS: Procalcitonin 0.27 ng/mL (0-0.5); Thyroid Stimulating Hormone 1.63 uIU/mL (0.27-4.20)
[2020-09-12] MEDS: budesonide 0.5 mg/2 mL Neb INHALATION ×2 (08:20→19:41)
[2020-09-12] MEDS: pregabalin 50 mg Capsule PO ×2 (09:59→17:34)
[2020-09-12] MEDS: FUROsemide 40 mg Tablet PO (09:59)
[2020-09-12] MEDS: pantoprazole DR 40 mg Tablet PO ×2 (09:59→17:34)
[2020-09-12] MEDS: sertraline 100 mg Tablet PO (10:00)
[2020-09-12] MEDS: metoprolol tartrate 25 mg Tablet PO ×2 (10:00→17:34)
[2020-09-12] MEDS: tamsulosin 0.4 mg Capsule PO (10:00)
[2020-09-12] MEDS: polyethylene glycol 3350 Pkt 17 gm PO (10:00)
[2020-09-12] MEDS: ondansetron 2 mg/ML SDV 2 mL 4 MG IVP (10:13)
[2020-09-12] MEDS: vancomycin 1,500 MG/300 ML PIGGYBACK 200 MG IV (10:17)
--- NOTE | 2020-09-12 11:14 | PC.NURSE ---
there is documented wound on the right lower buttock for the patient, but upon inspection this nurse did not see any wound at that location.
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
[2020-09-12] MEDS: HYDROcodone-acetaminophen 5-325 mg Tablet 1 TAB PO ×2 (15:34→21:04)
[2020-09-12] MEDS: trazodone 100 mg Tablet PO (21:03)
[2020-09-12] MEDS: quetiapine 25 mg Tablet 50 MG PO (21:06)
[2020-09-13] VITALS (9 sets, daily range): BP systolic 129–157; BP diastolic 65–77; PULSE 73–85; RESP 17–20; TEMP 36.8–37; O2SAT 91–98
[2020-09-13] MEDS: HYDROcodone-acetaminophen 5-325 mg Tablet 1 TAB PO ×4 (01:31→21:46)
[2020-09-13] MEDS: enoxaparin 40 mg/0.4 mL Syringe SUBCUT (04:27)
[2020-09-13] MEDS: vancomycin 1,500 MG/300 ML PIGGYBACK 200 MG IV (04:28)
[2020-09-13 06:24] LABS: Basophils # 0.1 10^3/uL (0.0-0.1); Basophils % 1.3 %; Eosinophils # 0.9 10^3/uL (0.0-0.8); Eosinophils % 11.9 %; Hematocrit 25.5 % (42.0-52.0); Hemoglobin 7.6 g/dL (11.7-16.6); Lymphocytes # 2.6 10^3/uL (0.8-4.8); Lymphocytes % 33.3 %; Mean Corpuscular HGB Conc 29.8 g/dL (30.0-36.0); Mean Corpuscular Hemoglobin 24.7 pg (28.0-34.0); Mean Corpuscular Volume 82.8 fL (80-94); Mean Platelet Volume 9.4 fL (7.4-10.4); Monocytes # 0.6 10^3/uL (0.2-0.9); Monocytes % 8.1 %; Neutrophils # 3.56 10^3/uL (1.8-7.7); Neutrophils % 45.1 %; Nucleated Red Blood Cells % 0 %; Platelet Count 335 10^3/cmm (130-400); Red Blood Count 3.08 10^6/uL (4.1-5.3); Red Cell Distribution Width 15.9 % (12.1-15.1); White Blood Count 7.9 10^3/uL (4.0-10.0)
[2020-09-13 06:35] LABS: Alanine Aminotransferase 9 U/L (0-41); Alkaline Phosphatase 65 IU/L (40-130); Anion Gap 9.5 (5-19); Aspartate Amino Transferase 11 U/L (0-40); Blood Urea Nitrogen 7 mg/dL (8-23); Calcium 8.3 mg/dL (8.5-10.5); Carbon Dioxide 28 mmol/L (22-29); Chloride 105 mmol/L (98-107); Globulin 2.8 g/dL (1.3-4.6); Glucose 84 mg/dL (65-115); Magnesium 2.1 mg/dL (1.7-2.3); Osmolality Calculated 285 mOsm/kg (285-295); Potassium 3.5 mmol/L (3.5-5.1); Sodium 139 mmol/L (136-145); Total Bilirubin 0.2 mg/dL (0.15-1.2); Total Protein 5.8 g/dL (6.6-8.7)
[2020-09-13] MEDS: budesonide 0.5 mg/2 mL Neb INHALATION ×3 (07:27→20:29)
--- NOTE | 2020-09-13 09:15 | PC.SOCIAL ---
IMM Update Pg.2 of IMM Updated and reviewed with patient who verbalized understanding. Copy provided.
[2020-09-13] MEDS: metoprolol tartrate 25 mg Tablet PO ×2 (09:32→17:53)
[2020-09-13] MEDS: pregabalin 50 mg Capsule PO ×2 (09:32→17:53)
[2020-09-13] MEDS: FUROsemide 40 mg Tablet PO (09:33)
[2020-09-13] MEDS: tamsulosin 0.4 mg Capsule PO (09:33)
[2020-09-13] MEDS: sertraline 100 mg Tablet PO (09:34)
[2020-09-13] MEDS: pantoprazole DR 40 mg Tablet PO ×2 (09:34→17:53)
--- NOTE | 2020-09-13 10:50 | PC.SOCIAL ---
IMM Update Pg.2 of IMM Updated and reviewed with patient who verbalized understanding. Copy provided.
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
[2020-09-13] MEDS: linezolid premix 600 MG/300 ML PREMIX 300 MG IV (13:22)
[2020-09-13 21:29] LABS: Vancomycin Trough 13.7 ug/mL (10-15)
[2020-09-13] MEDS: trazodone 100 mg Tablet 200 MG PO (21:46)
[2020-09-13] MEDS: quetiapine 25 mg Tablet 50 MG PO (21:46)
[2020-09-14] VITALS (7 sets, daily range): BP systolic 111–143; BP diastolic 57–74; PULSE 65–83; RESP 16–18; TEMP 36.1–37.4; O2SAT 90–98
[2020-09-14] MEDS: linezolid premix 600 MG/300 ML PREMIX 300 MG IV ×2 (01:06→13:06)
[2020-09-14 05:01] LABS: Basophils # 0.1 10^3/uL (0.0-0.1); Basophils % 1.1 %; Eosinophils # 0.9 10^3/uL (0.0-0.8); Eosinophils % 13.8 %; Hematocrit 27.9 % (42.0-52.0); Hemoglobin 8.3 g/dL (11.7-16.6); Lymphocytes # 2.5 10^3/uL (0.8-4.8); Lymphocytes % 39.5 %; Mean Corpuscular HGB Conc 29.7 g/dL (30.0-36.0); Mean Corpuscular Hemoglobin 24.5 pg (28.0-34.0); Mean Corpuscular Volume 82.3 fL (80-94); Mean Platelet Volume 9.6 fL (7.4-10.4); Monocytes # 0.6 10^3/uL (0.2-0.9); Monocytes % 8.8 %; Neutrophils # 2.33 10^3/uL (1.8-7.7); Neutrophils % 36.6 %; Nucleated Red Blood Cells % 0 %; Platelet Count 319 10^3/cmm (130-400); Red Blood Count 3.39 10^6/uL (4.1-5.3); Red Cell Distribution Width 15.9 % (12.1-15.1); White Blood Count 6.4 10^3/uL (4.0-10.0)
[2020-09-14] MEDS: enoxaparin 40 mg/0.4 mL Syringe SUBCUT (05:02)
[2020-09-14 05:18] LABS: Alanine Aminotransferase 9 U/L (0-41); Albumin Level 3.3 g/dL (3.5-5.2); Alkaline Phosphatase 54 IU/L (40-130); Aspartate Amino Transferase 17 U/L (0-40); Blood Urea Nitrogen 8 mg/dL (8-23); Calcium 8.4 mg/dL (8.5-10.5); Carbon Dioxide 29 mmol/L (22-29); Chloride 104 mmol/L (98-107); Glucose 76 mg/dL (65-115); Osmolality Calculated 283 mOsm/kg (285-295); Sodium 138 mmol/L (136-145); Total Bilirubin 0.2 mg/dL (0.15-1.2); Total Protein 6.3 g/dL (6.6-8.7)
[2020-09-14 05:29] LABS: Anion Gap 8.3 (5-19); Potassium 3.3 mmol/L (3.5-5.1)
[2020-09-14 06:03] LABS: Ferritin 46 ng/mL (30-400); Iron 13 ug/dL (59-158); Total Iron Binding Capacity 320 mcg/dl; Unsaturated Iron Binding 307 ug/dL (112-347)
[2020-09-14 06:17] LABS: Vitamin B12 285 pg/mL (232-1245)
[2020-09-14 06:18] LABS: Folate Level 6.7 ng/mL (4.5-32.2)
[2020-09-14] MEDS: sennosides 8.6 mg Tablet 17.2 MG PO (08:08)
[2020-09-14] MEDS: tamsulosin 0.4 mg Capsule PO (08:08)
[2020-09-14] MEDS: metoprolol tartrate 25 mg Tablet PO (08:08)
[2020-09-14] MEDS: pantoprazole DR 40 mg Tablet PO (08:08)
[2020-09-14] MEDS: polyethylene glycol 3350 Pkt 17 gm PO (08:08)
[2020-09-14] MEDS: FUROsemide 40 mg Tablet PO (08:08)
[2020-09-14] MEDS: HYDROcodone-acetaminophen 5-325 mg Tablet 1 TAB PO ×2 (08:08→13:07)
[2020-09-14] MEDS: pregabalin 50 mg Capsule PO (08:08)
[2020-09-14] MEDS: budesonide 0.5 mg/2 mL Neb INHALATION (09:04)
[2020-09-14] MEDS: acetaminophen 325 mg Tablet 650 MG PO (10:42)
--- NOTE | 2020-09-14 11:45 | PM.DCS ---
Discharge Providers Date of Admission: 09/10/20 11:48 Date of Discharge: September 14, 2020 Attending Provider at Admission: Benjamín Ann Attending Provider at Discharge: Pasha Osorio MD Primary Care Provider: MEGGAN Obando Diagnoses at Discharge Discharge Diagnosis (1) Urinary tract infection: Status: Acute Permanent problem details: With vancomycin-resistant Enterococcus faecalis. (2) Colonic constipation: Status: Acute (3) Dehydration: Status: Acute (4) Hypokalemia: Status: Acute (5) Severe sepsis: Status: Acute Permanent problem details: Resolved Reason for Visit Reason for Visit: lower back, constipation Hospital Course Hospital Course Patient presented septic with evidence of UTI. His urine grew VRE. Patient was treated with fluids and antibiotics and gradually improved and this morning reports feeling much better and strong enough to be dismissed home. He did much better with physical and Occupational Therapy. Patient agreed to have home health. He is not interested in nursing facility placement. I will increase patient's Flomax to twice daily. Continue linezolid for 10 more days. Patient is planning to see Dr. Tang to address his chronic back pain. Patient was recommended to discuss with primary care physician to arrange pain clinic. This morning patient denies shortness of breath or chest pain. Denies abdominal pain. He is eating okay. Had bowel movement. Physical Exam Narrative: EXAM NARRATIVE: Lungs are clear and heart is regular. Patient is alert and oriented x3. Abdomen is soft and nontender with positive bowel sounds. No lower extremity edema Discharge Data Data Completed and Pending: Completed Studies During Hospitalization Category Date Time Status CT abdomen pelvis w con* [id number] Urge nt Cat Scan 09/10/20 00:52 Completed XR abdomen min 2V [id number] Urgent Exams 09/09/20 23:46 Completed Pending at discharge Category Date Time Status Blood Culture Sta t Lab 09/10/20 01:41 Results Complete Blood Co unt w/Auto AM LABS Lab 09/15/20 04:00 Ordered Comprehensive Met abolic Panel AM LA BS Lab 09/15/20 04:00 Ordered Magnesium AM LABS Lab 09/15/20 04:00 Ordered Labs from last 24 hours 09/14/20 09/14/20 09/14/20 04:43 04:43 04:43 WBC 6.4 RBC 3.39 L Hgb 8.3 L Hct 27.9 L MCV 82.3 MCH 24.5 L MCHC 29.7 L RDW 15.9 H Plt Count 319 MPV 9.6 Neut % (Auto) 36.6 Lymph % (Auto) 39.5 [place] % (Auto) 8.8 Eos % (Auto) 13.8 Baso % (Auto) 1.1 Neut # (Auto) 2.33 Lymph # (Auto) 2.5 [place] # (Auto) 0.6 Eos # (Auto) 0.9 H Baso # (Auto) 0.1 Nucleated RBC % (a uto) 0 Nucleated RBCs # 0.0 Sodium 138 Potassium 3.3 L Chloride 104 Carbon Dioxide 29 Anion Gap 8.3 BUN 8 Creatinine 0.7 GFR Calculation Not Reportable Glucose 76 Calculated Osmolal ity 283 L Calcium 8.4 L Magnesium 2.0 Iron 13 L TIBC 320 % Saturation 4.0 L Unsat Iron Binding 307 Ferritin 46 Total Bilirubin 0.2 AST 17 ALT 9 Alkaline Phosphata se 54 Total Protein 6.3 L Albumin 3.3 L Globulin 3.0 Vitamin B12 285 Folate 6.7 Vancomycin Trough 09/13/20 20:45 WBC RBC Hgb Hct MCV MCH MCHC RDW Plt Count MPV Neut % (Auto) Lymph % (Auto) [place] % (Auto) Eos % (Auto) Baso % (Auto) Neut # (Auto) Lymph # (Auto) [place] # (Auto) Eos # (Auto) Baso # (Auto) Nucleated RBC % (a uto) Nucleated RBCs # Sodium Potassium Chloride Carbon Dioxide Anion Gap BUN Creatinine GFR Calculation Glucose Calculated Osmolal ity Calcium Magnesium Iron TIBC % Saturation Unsat Iron Binding Ferritin Total Bilirubin AST ALT Alkaline Phosphata se Total Protein Albumin Globulin Vitamin B12 Folate Vancomycin Trough 13.7 Vitals: Last Vital Signs Temp 98.2 F 09/14/20 11:34 Pulse 83 09/14/20 11:34 Resp 18 09/14/20 11:34 BP 111/70 09/14/20 11:34 Pulse Ox 98 09/14/20 11:34 Discharge Plan Discharge Patient Disposition: Home Health Service Condition: Stable Prescriptions: New sennosides [Senna Lax] 8.6 mg Tablet 17.2 mg PO BID 30 Days Qty: 120 RF: 0 linezolid 600 mg tablet 600 mg PO BID 10 Days Qty: 20 RF: 0 Continued budesonide [Pulmicort] 0.5 mg/2 mL suspension for nebulization 0.5 mg INHALATION BID Qty: 120 RF: 2 Biofreeze (menthol) 4 % gel 1 applic TOPICAL TID PRN (Reason: pain) Qty: 118 RF: 0 sertraline 100 mg tablet 100 mg PO DAILY Qty: 30 RF: 2 methenamine hippurate 1 gram tablet 1 g PO BID Qty: 60 RF: 12 nitroglycerin [Nitrostat] 0.4 mg tablet, sublingual 0.4 mg SUBLINGUAL Q5M PRN (Reason: Chest Pain) Qty: 100 RF: 2 Lasix 40 mg tablet 40 mg PO DAILY Qty: 90 RF: 3 Eliquis 5 mg tablet 5 mg PO BID Qty: 180 RF: 3 metoprolol tartrate 25 mg tablet 25 mg PO BID Qty: 180 RF: 3 ProAir HFA 90 mcg/actuation HFA aerosol inhaler 2 puff INHALATION QID PRN (Reason: Shortness Of Breath) Qty: 8.5 RF: 2 Amitiza 24 mcg capsule 24 mcg PO BID 30 Days Qty: 60 RF: 2 Mucinex 1,200 mg tablet extended release 12hr 1,200 mg PO BID PRN (Reason: congestion) Qty: 14 RF: 0 multivitamin [Multiple Vitamins] Tablet 1 tab PO DAILY@08 RF: 0 lactulose 20 gram/30 mL Solution 10 g PO DAILY PRN (Reason: constipation) Qty: 1200 RF: 0 polyethylene glycol 3350 [Miralax] 17 gram Powder In Packet 17 g PO DAILY Qty: 60 RF: 0 trazodone 100 mg Tablet 100 - 300 mg PO BEDTIME@21 RF: 0 hydrocodone-acetaminophen 10-325 mg Tablet 1 tab PO Q3H PRN (Reason: Pain) RF: 0 baclofen 10 mg Tablet 10 mg PO TID PRN (Reason: Pain) RF: 0 Lyrica 50 mg Capsule 50 mg PO BID RF: 0 Seroquel 50 mg tablet 50 mg PO BEDTIME RF: 0 Changed tamsulosin 0.4 mg capsule 0.4 mg PO BID Qty: 60 RF: 0 Discontinued cefuroxime axetil 500 mg tablet 500 mg PO BID Qty: 20 RF: 0 clonidine HCl 0.1 mg Tablet 0.1 mg PO TID RF: 0 amlodipine 10 mg Tablet 10 mg PO DAILY RF: 0 Discharge Orders: Discharge Order (Routine); Ordered 09/14/20 Ordered By: Pasha Osorio Referrals: Brisa Jensen, PROPOSAL ENGINEER-C [Primary Care Provider] - 4-7 days Discharge Diet: Advance as tolerated Discharge Activity: Increase activity as tolerated Patient Instructions: Constipation (DC), Dehydration (DC), Urinary Tract Infection in Men (DC), Hypokalemia (DC), Sepsis (DC), Opioid Safety Activity Restrictions/Additional Instructions: Please call your doctor or present to emergency department if your condition worsens or you develop diarrhea, lightheadedness, fatigue or see blood in your stool or black stool. Please follow-up with Dr. Tang as you are planning to further evaluate your chronic back pain. Please discuss with your doctor to consider pain clinic if you need. Discharge Attestations Time Spent in Discharge Care*: greater than 30 min Quality Metrics Clinical Quality Measures During this hospital stay, did patient experience: None Coding Level of Care Code Acute Pourer Crane Ladle for g Fwd Diagnoses Urinary tract infection N39.0 Colonic constipation K59.00 Dehydration E86.0 Hypokalemia E87.6 Severe sepsis A41.9; R65.20
== END 2020-09-14 15:46 | disposition home health service (06) | DRG 872 ==
LOC: ER 09-10 03:04 → MEDSURG 09-10 03:09
PROVIDERS: Admitting Provider Internal Medicine; Emergency Provider Nurse Practitioner Family; PCP Nurse Practitioner; Visit Provider Internal Medicine
DX: A41.9 Sepsis, unspecified organism (principal); I50.32 Chronic diastolic (congestive) heart failure; N13.30 Unspecified hydronephrosis; Z16.21 Resistance to vancomycin; E87.2 Acidosis; N10 Acute pyelonephritis; N39.0 Urinary tract infection, site not specified; R65.20 Severe sepsis without septic shock; I11.0 Hypertensive heart disease with heart failure; I25.10 Atherosclerotic heart disease of native coronary artery without angina pectoris; Z95.5 Presence of coronary angioplasty implant and graft; Z95.1 Presence of aortocoronary bypass graft; I48.91 Unspecified atrial fibrillation; K59.00 Constipation, unspecified; J44.9 Chronic obstructive pulmonary disease, unspecified; Z86.718 Personal history of other venous thrombosis and embolism; E78.5 Hyperlipidemia, unspecified; F41.1 Generalized anxiety disorder; M54.16 Radiculopathy, lumbar region; F32.9 Major depressive disorder, single episode, unspecified; I73.9 Peripheral vascular disease, unspecified; G47.30 Sleep apnea, unspecified; F03.90 Unspecified dementia, unspecified severity, without behavioral disturbance, psychotic disturbance, mood disturbance, and anxiety; Z98.1 Arthrodesis status; Z79.891 Long term (current) use of opiate analgesic; Z79.01 Long term (current) use of anticoagulants; B95.2 Enterococcus as the cause of diseases classified elsewhere; E87.6 Hypokalemia; E86.0 Dehydration; G89.29 Other chronic pain; Z87.891 Personal history of nicotine dependence
CPT/HCPCS: 36415; 45915; 51701; 74019; 74177; 80048; 80053; 80202; 81001; 82607; 82728; 82746; 83540; 83550; 83605; 83690; 83735; 84145; 84443; 85025; 87040; 87077; 87086; 87186; 87205; 94640; 96365; 96367; 96372; 96375; 97110; 97161; 97530; 99285; G0378; J0696; J0744; J1650; J2020; J2270; J2405; J3370; J7030; J7040; J7626; Q9967; S0030

== ENCOUNTER 2020-12-26 01:52 | Emergency (ER) | payer MEDICARE, MEDICAID, SELFPAY ==
[2020-12-26 01:42] VITALS: PULSE 96; RESP 15; TEMP 36.7; O2SAT 99; BMI 27.1
[2020-12-26 01:45] VITALS: PULSE 94; RESP 24; O2SAT 98
--- NOTE | 2020-12-26 02:14 | XRR_ITS ---
PROCEDURE INFORMATION: Exam: XR Chest Exam date and time: 12/26/2020 2:14 AM Age: 80 years old Clinical indication: Dyspnea; Prior surgery; Surgery date: 6+ months; Surgery type: Cabg; Additional info: SOB TECHNIQUE: Imaging protocol: XR of the chest. Views: 1 view. COMPARISON: CR XR chest 1V portable [id number] 08/27/2020 7:39 PM FINDINGS: Lungs: Unremarkable. No consolidation. Pleural spaces: Unremarkable. No pleural effusion. No pneumothorax. Heart/Mediastinum: There is mild cardiomegaly. Bones/joints: There has been a median sternotomy. XR/XR chest 1V portable [id number] IMPRESSION: Mild cardiomegaly.
--- NOTE | 2020-12-26 02:14 | ECG_ITS ---
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 Measurements Intervals [place] Rate: 82 P: 64 [place]: 201 QRS: 46 QRSD: 126 T: 21 QT: 435 QTc: 508 Interpretive Statements SINUS RHYTHM WITH OCCASIONAL VENTRICULAR PREMATURE COMPLEXES MODERATE INTRAVENTRICULAR CONDUCTION DELAY [110+ ms QRS DURATION] PROLONGED QT INTERVAL Compared to ECG 07/16/2020 01:05:26 Ventricular premature complex(es) now present Electronically Signed On 12-26-2020 15:02:06 CDT by Velvet Park M.D. [id number]
[2020-12-26 02:33] VITALS: BP 163/84; PULSE 88; RESP 17; O2SAT 95
[2020-12-26] MEDS: FUROsemide 10 mg/mL SDV 10mL 60 MG IVP (02:33)
[2020-12-26 02:40] LABS: Basophils # 0.1 10^3/uL (0.0-0.1); Basophils % 0.9 %; Eosinophils # 0.2 10^3/uL (0.0-0.8); Eosinophils % 2.7 %; Hematocrit 29.1 % (42.0-52.0); Hemoglobin 8.2 g/dL (11.7-16.6); Lymphocytes # 1.4 10^3/uL (0.8-4.8); Lymphocytes % 18.4 %; Mean Corpuscular HGB Conc 28.2 g/dL (30.0-36.0); Mean Corpuscular Hemoglobin 22.2 pg (28.0-34.0); Mean Corpuscular Volume 78.6 fL (80-94); Mean Platelet Volume 9.8 fL (7.4-10.4); Monocytes # 0.8 10^3/uL (0.2-0.9); Neutrophils # 5.22 10^3/uL (1.8-7.7); Neutrophils % 67.7 %; Nucleated Red Blood Cells % 0 %; Platelet Count 325 10^3/cmm (130-400); Red Cell Distribution Width 17.1 % (12.1-15.1); White Blood Count 7.7 10^3/uL (4.0-10.0)
[2020-12-26 02:53] LABS: Lactic Sepsis W/Reflex 0.8 mmol/L (0.5-2.2)
[2020-12-26 03:04] LABS: Alanine Aminotransferase 14 U/L (0-41); Albumin Level 3.6 g/dL (3.5-5.2); Alkaline Phosphatase 140 IU/L (40-130); Anion Gap 14.5 (5-19); Aspartate Amino Transferase 17 U/L (0-40); Blood Urea Nitrogen 15 mg/dL (8-23); C Reactive Protein 14.6 mg/L (0.0-4.9); Calcium 8.8 mg/dL (8.5-10.5); Carbon Dioxide 27 mmol/L (22-29); Chloride 102 mmol/L (98-107); Globulin 3.6 g/dL (1.3-4.6); Glucose 115 mg/dL (65-115); NT Pro B Type Natriuretic Pept 568 pg/mL (0-450); Osmolality Calculated 292 mOsm/kg (285-295); Potassium 3.5 mmol/L (3.5-5.1); Sodium 140 mmol/L (136-145); Total Bilirubin 0.3 mg/dL (0.15-1.2); Total Protein 7.2 g/dL (6.6-8.7)
--- NOTE | 2020-12-26 03:47 | W.ED.SOB ---
HPI - SOB/Dyspnea General: Chief Complaint: Shortness of Breath/Dyspnea Stated Complaint: LE Edema Time Seen by Provider: 12/26/20 01:56 History of Present Illness: HPI Narrative: 80-year-old male with history of venous insufficiency and lower extremity edema. He has a history of DVT also, and is on apixaban twice daily for this. He is experienced an increase in lower extremity edema bilaterally with weight gain over the past couple of days. He notes he has been more short of breath at times, but not consistently. He does have oxygen at home which he has not been using. There is redness to the extremities as well. He denies fever, or chills. MD elicited complaint: shortness of breath Pertinent past history: DVT and other Onset (ago): day(s) Context: other Timing: constant Severity: moderate Exacerbating factors: exertion Known history of: other Associated symptoms: Reports extremity pain; Deny chest pain, cough, diaphoresis, dizziness, fever(s) or nausea Review of Systems Const: Denies: fever(s) or diaphoresis Card: Denies: chest pain GI: Denies: nausea Musc: Reports: extremity pain Neuro: Denies: dizziness PFS ED PFSH: Medical History Acute on chronic congestive heart failure Acute urinary retention Atherosclerotic heart disease of [place] coronary artery without angina pectoris Benign essential hypertension with target blood pressure below 140/90 CAD (coronary artery disease) Chronic constipation Chronic prescription opiate use Chronic prescription opiate use 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 Diastolic heart failure DVT (deep venous thrombosis) Dyslipidemia Generalized anxiety disorder Gram-positive bacteremia 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 History of DVT (deep vein thrombosis) Hx of cervical spinal arthrodesis Hypertension Intervertebral disc disorder with radiculopathy of lumbosacral region Lower abdominal pain Lumbar disc disease Lumbar spondylosis Lumbar stenosis with neurogenic claudication Major depressive disorder, recurrent severe without psychotic features Pain, joint, hand, right Pain, joint, shoulder, right Peripheral vascular disease Radial head fracture SBO (small bowel obstruction) Scoliosis of lumbar spine Skin tear Sleep apnea, unspecified SOB (shortness of breath) Uncircumcised male Unspecified dementia without behavioral disturbance Urinary retention Surgical History History of cervical spinal surgery 1979 [facility] C6-C7 laminectomy/fusion/fixation History of heart artery stent (~2006) History of heart bypass surgery (~2007) History of hernia surgery 4x History of knee surgery Right History of lumbar surgery [facility]. L3-L4, L4-L5, L5-S1 decompression History of uvulopalatopharyngoplasty Hx of CABG Hx of cholecystectomy Family History Father , at age 63 Diabetes Mother , at age 92 Colon cancer Hypertension Social History Smoking and tobacco status: former smoker Second hand smoke exposure: No Smoking risk assessment/counseling performed?: No Alcohol intake: never Desire information about alcohol rehabilitation?: No Counseling given: No Desire information about substance/drug rehabilitation?: No Counseling given: No Adopted: No Caregiver/support person: Yes Lives independently: No Household members: significant other Marital status: Number of children: 5 service: No Current occupational status: disabled History of recent travel: No Current gender identity: Male Physical Exam Const: COMMON NORMALS: no acute distress and alert GENERAL APPEARANCE: disheveled and frail appearing; not ill appearing ORIENTATION/CONSCIOUSNESS: Yes awake, Yes oriented to person and Yes oriented to place Chest: COMMONS NORMALS: normal inspection of the chest Resp: COMMON NORMALS: normal respiratory effort, No use of accessory muscles and clear to auscultation bilaterally AUSCULTATION: clear to auscultation bilaterally Cardio: COMMON NORMALS: regular rate and regular rhythm; negative for No murmurs present (Cardio) RATE: regular rate RHYTHM: regular rhythm GI: COMMON NORMALS: Soft to palpation PALPATION: Yes Soft to palpation and No Tenderness to palpation present (GI) Extremity: NARRATIVE EXTREMITY EXAM: Bilateral lower extremity edema, with redness. There is some tenderness. There is no streaking or lymphangitis. Neuro: SENSORIUM/ORIENTATION: Yes alert, Yes oriented to person and Yes oriented to place Course Vital Signs: Vital signs: Vital Signs Temperature 98.0 F 12/26/20 01:42 Pulse Rate 88 12/26/20 02:33 Respiratory Rate 17 12/26/20 02:33 Blood Pressure 163/84 12/26/20 02:33 Pulse Oximetry 95 06/19/21 02:33 MDM - SOB/Dyspnea MDM Narrative: Medical decision making narrative: Lower extremity edema with cellulitis. Will treat with extra diuretics, and antibiotics. His hemoglobin is stable at 8.2. Other laboratory is benign. Chest x-ray is negative. Lab Data: Labs: Lab Results 12/26/20 12/26/20 12/26/20 Range/Units 02:31 02:31 02:31 WBC 7.7 (4.0-10.0) 10^3/ uL RBC 3.70 L (4.1-5.3) 10^6/u L Hgb 8.2 L (11.7-16.6) g/dL Hct 29.1 L (42.0-52.0) % MCV 78.6 L (80-94) fL MCH 22.2 L (28.0-34.0) pg MCHC 28.2 L (30.0-36.0) g/dL RDW 17.1 H (12.1-15.1) % Plt Count 325 (130-400) 10^3/c mm MPV 9.8 (7.4-10.4) fL Neut % (Auto) 67.7 % Lymph % (Auto) 18.4 % [place] % (Auto) 10.0 % Eos % (Auto) 2.7 % Baso % (Auto) 0.9 % Neut # (Auto) 5.22 (1.8-7.7) 10^3/u L Lymph # (Auto) 1.4 (0.8-4.8) 10^3/u L [place] # (Auto) 0.8 (0.2-0.9) 10^3/u L Eos # (Auto) 0.2 (0.0-0.8) 10^3/u L Baso # (Auto) 0.1 (0.0-0.1) 10^3/u L Nucleated RBC % (a uto) 0 % Nucleated RBCs # 0.0 /100WBC Sodium 140 (136-145) mmol/L Potassium 3.5 (3.5-5.1) mmol/L Chloride 102 (98-107) mmol/L Carbon Dioxide 27 (22-29) mmol/L Anion Gap 14.5 (5-19) BUN 15 (8-23) mg/dL Creatinine 1.0 (0.7-1.2) mg/dL GFR Calculation Not Reportable Glucose 115 (65-115) mg/dL Calculated Osmolal ity 292 (285-295) mOsm/k g Lactic Acid 0.8 (0.5-2.2) mmol/L Calcium 8.8 (8.5-10.5) mg/dL Total Bilirubin 0.3 (0.15-1.2) mg/dL AST 17 (0-40) U/L ALT 14 (0-41) U/L Alkaline Phosphata se 140 H (40-130) IU/L C-Reactive Protein 14.6 H (0.0-4.9) mg/L NT-Pro-B Natriuret Pep 568 H (0-450) pg/mL Total Protein 7.2 (6.6-8.7) g/dL Albumin 3.6 (3.5-5.2) g/dL Globulin 3.6 (1.3-4.6) g/dL Discharge Plan Discharge Patient Disposition: Home Clinical Impression: Edema leg Cellulitis Qualifiers: Site of cellulitis: extremity Site of cellulitis of extremity: lower extremity Laterality: unspecified laterality Qualified Code(s): L03.119 - Cellulitis of unspecified part of limb Condition: Stable Prescriptions: New doxycycline hyclate 100 mg capsule 100 mg PO DAILY Qty: 20 RF: 0 Continued Lasix 40 mg tablet 40 mg PO DAILY Qty: 90 RF: 3 No Action budesonide [Pulmicort] 0.5 mg/2 mL suspension for nebulization 0.5 mg INHALATION BID Qty: 120 RF: 2 Biofreeze (menthol) 4 % gel 1 applic TOPICAL TID PRN (Reason: pain) Qty: 118 RF: 0 sertraline 100 mg tablet 100 mg PO DAILY Qty: 30 RF: 2 methenamine hippurate 1 gram tablet 1 g PO BID Qty: 60 RF: 12 prednisone 20 mg tablet 20 mg PO DAILY Qty: 15 RF: 0 nitroglycerin [Nitrostat] 0.4 mg tablet, sublingual 0.4 mg SUBLINGUAL Q5M PRN (Reason: Chest Pain) Qty: 100 RF: 2 Eliquis 5 mg tablet 5 mg PO BID Qty: 180 RF: 3 metoprolol tartrate 25 mg tablet 25 mg PO BID Qty: 180 RF: 3 ProAir HFA 90 mcg/actuation HFA aerosol inhaler 2 puff INHALATION QID PRN (Reason: Shortness Of Breath) Qty: 8.5 RF: 2 Amitiza 24 mcg capsule 24 mcg PO BID 30 Days Qty: 60 RF: 2 Mucinex 1,200 mg tablet extended release 12hr 1,200 mg PO BID PRN (Reason: congestion) Qty: 14 RF: 0 multivitamin [Multiple Vitamins] Tablet 1 tab PO DAILY@08 RF: 0 lactulose 20 gram/30 mL Solution 10 g PO DAILY PRN (Reason: constipation) Qty: 1200 RF: 0 polyethylene glycol 3350 [Miralax] 17 gram Powder In Packet 17 g PO DAILY Qty: 60 RF: 0 trazodone 100 mg Tablet 100 - 300 mg PO BEDTIME@21 RF: 0 hydrocodone-acetaminophen 10-325 mg Tablet 1 tab PO Q3H PRN (Reason: Pain) RF: 0 baclofen 10 mg Tablet 10 mg PO TID PRN (Reason: Pain) RF: 0 Lyrica 50 mg Capsule 50 mg PO BID RF: 0 Seroquel 50 mg tablet 50 mg PO BEDTIME RF: 0 tamsulosin 0.4 mg capsule 0.4 mg PO BID Qty: 60 RF: 0 Discharge Orders: Discharge ED (Routine); Ordered 12/26/20 Ordered By: Matias Espana Referrals: Brisa Jensen FNP-C [Primary Care Provider] - 4-7 days Discharge Diet: Usual diet Discharge Activity: Increase activity as tolerated Patient Instructions: Cellulitis (ED), Leg Edema (ED) Activity Restrictions/Additional Instructions: Antibiotics as directed. Take your Lasix twice daily for the next 4 days, then back to daily. Return for worsening swelling, redness, pain despite treatment. Coding Level of Care Code ED Student Teaching Coordinator for Katiuska Carter
[2020-12-26] MEDS: doxycycline 100 mg Tablet PO (04:17)
[2020-12-26 04:18] VITALS: BP 147/85; PULSE 90; RESP 17; O2SAT 97
== END 2020-12-26 07:18 | disposition home or self-care (01) ==
PROVIDERS: Emergency Provider Emergency Medicine; PCP Nurse Practitioner
DX: R60.0 Localized edema (principal); L03.119 Cellulitis of unspecified part of limb; Z79.01 Long term (current) use of anticoagulants; I25.10 Atherosclerotic heart disease of native coronary artery without angina pectoris; I11.0 Hypertensive heart disease with heart failure; I50.30 Unspecified diastolic (congestive) heart failure; J44.9 Chronic obstructive pulmonary disease, unspecified; E78.5 Hyperlipidemia, unspecified; Z95.1 Presence of aortocoronary bypass graft; Z87.891 Personal history of nicotine dependence
CPT/HCPCS: 36415; 71045; 80053; 83605; 83880; 85025; 86140; 87040; 93005; 96374; 99284; J1940

== ENCOUNTER 2021-04-07 13:04 | Outpatient (CLI) | payer MEDICARE, MEDICAID, SELFPAY ==
--- NOTE | 2021-04-07 13:45 | MR_ITS ---
WS: [id number] MRI LUMBAR SPINE NONCONTRAST HISTORY: M48.062 - Spinal stenosis, lumbar region with RIGHT leg pain. COMPARISON: 04/04/2019 TECHNIQUE: Sagittal and axial multisequence imaging is submitted. Straightening and slight reversal of the normal cervical lordosis. Ankylosis at C6-7. There is mild e ncroachment with narrowing of the cervical canal at C3-4. Additional mild narrowing of the central ca nal at C7-T1. Marked straightening of the normal lumbar lordosis. Mild S-shaped curvature the lumbar spine. Disc spaces are significantly narrowed throughout the lumbar spine. New edema is noted within L1 vert ebral body and the superior endplate of L2. There is increased T2 signal on the L1-2 disc space. Conus terminates normally at L1. L1-L2: Diffuse annular disc bulging and osteophytic ridging with moderate ligamentum flavum and facet arthritis encroaching into the thecal sac. Mild central stenosis with moderate LEFT subarticular rec ess and LEFT foraminal stenosis. Similar to the prior study. L2-L3: Mild annular disc bulging and osteophytic ridging. Mild bilateral ligamentum flavum hypertroph y and facet arthritis. Small osteophytes encroach into the foramen. Mild central and foraminal narrow ing. L3-L4: Diffuse annular disc bulging and osteophytic ridging. Facet joint arthritis encroaching into t he thecal sac. Prior large posterior laminectomy defect. Mild RIGHT with moderate LEFT foraminal sten osis. Osteophytes from the RIGHT facet joint due to encroachment into the RIGHT lateral thecal sac co ntacting the nerve roots. L4-L5: Diffuse annular disc bulging and osteophytic ridging with a large posterior laminectomy defect . Facet joint arthritis encroaching into the thecal sac. Severe bilateral subarticular recess and for aminal stenosis. No central stenosis. Slight progression of foraminal stenosis. L5-S1: Mild disc bulging. Posterior laminectomy defects. No stenosis. Ectatic abdominal aorta. MR/MR lumbar spine wo con* [id number] IMPRESSION: 1. Extensive prior laminectomy defects at L3-L5. 2. Severe bilateral subarticular recess and foraminal stenosis at L4-5 with on ly minimal progression since the prior study. 3. Mild central stenosis at L1-2 with moderate LEFT subarticular recess and LE FT foraminal stenosis. No change. 4. Mild central foraminal stenosis at L2-3. 5. Moderate LEFT foraminal stenosis at L3-4. Osteophytes from the RIGHT facet encroachment into the thecal sac contacting the nerve roots at this level. 6. New marrow edema in the adjacent endplates of L1 and L2 with fluid along th e disc. This may be reactive process related to acute Schmorl's nodes. Cannot c ompletely exclude discitis/osteomyelitis.
== END 2021-04-07 13:05 | disposition home or self-care (01) ==
LOC: RADSHAW 13:08
PROVIDERS: PCP Nurse Practitioner; Visit Provider Orthopaedic Surgery
DX: G89.29 Other chronic pain (principal); M48.062 Spinal stenosis, lumbar region with neurogenic claudication; M51.17 Intervertebral disc disorders with radiculopathy, lumbosacral region; M54.2 Cervicalgia; Z98.890 Other specified postprocedural states; Z98.1 Arthrodesis status; Z79.891 Long term (current) use of opiate analgesic
CPT/HCPCS: 72148; 99204

== ENCOUNTER → 2021-05-06 14:19 | Outpatient (BNVA) | payer MEDICARE, MEDICAID, SELFPAY | PROVIDERS: PCP Nurse Practitioner; Visit Provider Anesthesiology | DX: G89.29 Other chronic pain (principal); M48.062 Spinal stenosis, lumbar region with neurogenic claudication; M54.2 Cervicalgia; M17.11 Unilateral primary osteoarthritis, right knee; M51.17 Intervertebral disc disorders with radiculopathy, lumbosacral region; M51.37 Other intervertebral disc degeneration, lumbosacral region; M96.1 Postlaminectomy syndrome, not elsewhere classified; Z98.1 Arthrodesis status; M25.559 Pain in unspecified hip; Z98.890 Other specified postprocedural states; Z79.891 Long term (current) use of opiate analgesic | CPT/HCPCS: 73502; 73560; 73565; 99214 ==

== ENCOUNTER → 2021-06-02 11:21 | Outpatient (BNVA) | payer MEDICARE, MEDICAID, SELFPAY | PROVIDERS: PCP Nurse Practitioner; Visit Provider Anesthesiology | DX: G89.29 Other chronic pain (principal); M54.2 Cervicalgia; M48.062 Spinal stenosis, lumbar region with neurogenic claudication; M51.17 Intervertebral disc disorders with radiculopathy, lumbosacral region; M51.37 Other intervertebral disc degeneration, lumbosacral region; M25.551 Pain in right hip; M17.11 Unilateral primary osteoarthritis, right knee; M87.059 Idiopathic aseptic necrosis of unspecified femur; Z98.1 Arthrodesis status; Z79.891 Long term (current) use of opiate analgesic; Z98.890 Other specified postprocedural states; Z87.891 Personal history of nicotine dependence | CPT/HCPCS: 99214 ==

== ENCOUNTER → 2021-06-08 09:59 | Outpatient (BNVA) | payer MEDICARE, MEDICAID, SELFPAY | PROVIDERS: PCP Nurse Practitioner; Referring Provider Physician Assistant; Visit Provider Specialist | DX: M25.551 Pain in right hip (principal); G89.29 Other chronic pain | CPT/HCPCS: 73502 ==

== ENCOUNTER → 2021-06-30 14:38 | Outpatient (BNVA) | payer MEDICARE, MEDICAID, SELFPAY | PROVIDERS: PCP Nurse Practitioner; Visit Provider Anesthesiology | DX: G89.29 Other chronic pain (principal); M54.2 Cervicalgia; M51.17 Intervertebral disc disorders with radiculopathy, lumbosacral region; M48.062 Spinal stenosis, lumbar region with neurogenic claudication; M51.37 Other intervertebral disc degeneration, lumbosacral region; M96.1 Postlaminectomy syndrome, not elsewhere classified; M25.551 Pain in right hip; Z98.890 Other specified postprocedural states; Z98.1 Arthrodesis status; Z79.891 Long term (current) use of opiate analgesic; Z87.891 Personal history of nicotine dependence | CPT/HCPCS: 99214 ==

== ENCOUNTER 2021-09-29 14:13 | Inpatient (IN) | payer MEDICARE, MEDICAID, SELFPAY ==
[2021-09-29 14:25] VITALS: BP 108/108; PULSE 106; RESP 18; TEMP 37.1; O2SAT 96; BMI 27.1
--- NOTE | 2021-09-29 14:43 | XRR_ITS ---
PROCEDURE INFORMATION: Exam: XR Chest Exam date and time: 09/29/2021 1:54 PM Age: 81 years old Clinical indication: Cough and dyspnea; Additional info: Dyspnea/cough TECHNIQUE: Imaging protocol: XR of the chest. Views: 1 view. COMPARISON: CR XR chest 1V portable [id number] 12/26/2020 3:31 AM FINDINGS: Lungs: Unremarkable. No consolidation. Pleural spaces: Unremarkable. No pleural effusion. No pneumothorax. Heart/Mediastinum: Status post CABG. Bones/joints: Status post median sternotomy. Advanced osteoarthritis of the right shoulder. XR/XR chest 1V portable [id number] IMPRESSION: No acute findings
--- NOTE | 2021-09-29 14:43 | ECG_ITS ---
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 Measurements Intervals [place] Rate: 92 P: 47 NV: 195 QRS: 9 QRSD: 110 T: 62 QT: 414 QTc: 514 Interpretive Statements SINUS RHYTHM WITH OCCASIONAL VENTRICULAR PREMATURE COMPLEXES POSSIBLE LEFT ATRIAL ENLARGEMENT [-0.1mV P-WAVE IN V1/V2] INCOMPLETE RIGHT BUNDLE BRANCH BLOCK [90+ ms QRS DURATION, TERMINAL R IN V1/V2, 40+ ms S IN I/aVL/V4/V5/V6] MINIMAL ST DEPRESSION [0.025+ mV ST DEPRESSION] PROLONGED QT INTERVAL Compared to ECG 12/26/2020 02:25:22 Incomplete right bundle-branch block now present ST (T wave) deviation now present Intraventricular conduction delay no longer present Electronically Signed On 09-29-2021 19:22:56 CDT by Velvet Park M.D. [id number]
--- NOTE | 2021-09-29 14:43 | ED_ITS ---
HPI - General Adult General: Chief complaint: General Medical Stated complaint: DECREASED MOBILITY/ WELL BEING CHECK Time Seen by Provider: 09/29/21 14:28 Source: patient Mode of arrival: EMS Limitations: altered mental status History of Present Illness: 81-year-old male presents emergency room with EMS. EMS reports she was found deplorable living conditions had not been eating or drinking last several days that hotlined the she is not able to take care of him or herself. 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 He is confused. He denies any chest pain. No apparent hallucinations. He is complaining of severe right hip pain and chronic back pain. Onset (ago): unknown Location: back and lower extremity (Right hip) Severity: severe Quality: aching Pain Consistency: constant Relieving factors: none and rest Exacerbating factors: other (Ambulation) Associated symptoms: Deny chest pain, confusion, cough, diaphoresis, decreased appetite, dyspnea, fevers/chills, headache(s), malaise, nausea, rash, palpitations, seizures, short of breath, syncope, vomiting or weakness Treatments prior to arrival: none Review of Systems Const: Denies: malaise or diaphoresis ENMT: Denies: throat pain, ear or mastoid pain, nasal discharge or nasal congestion Card: Denies: chest pain, palpitations or syncope Resp: Denies: dyspnea GI: Denies: nausea or vomiting : Denies: flank pain, dysuria, urinary frequency or urinary urgency Skin/Breast: Denies: rash Neuro: Denies: headache(s) or confusion PFS ED PFSH: Medical History Acute on chronic congestive heart failure Acute urinary retention Atherosclerotic heart disease of [place] coronary artery without angina pectoris Benign essential hypertension with target blood pressure below 140/90 CAD (coronary artery disease) Chronic constipation Chronic knee pain Chronic neck and back pain Chronic prescription opiate use Chronic prescription opiate use Chronic right hip pain 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 Diastolic heart failure DVT (deep venous thrombosis) Dyslipidemia Encounter for long-term opiate analgesic use Encounter for narcotic contract discussion Generalized anxiety disorder Gram-positive bacteremia 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 History of DVT (deep vein thrombosis) Hx of cervical spinal arthrodesis Hypertension Insomnia Intervertebral disc disorder with radiculopathy of lumbosacral region Lower abdominal pain Lumbar disc disease Lumbar spondylosis Lumbar stenosis with neurogenic claudication Major depressive disorder, recurrent severe without psychotic features Pain, joint, hand, right Pain, joint, shoulder, right Peripheral vascular disease Radial head fracture SBO (small bowel obstruction) Scoliosis of lumbar spine Skin tear Sleep apnea, unspecified SOB (shortness of breath) Uncircumcised male Unspecified dementia without behavioral disturbance Urinary retention Surgical History History of cervical spinal surgery 1979 [facility] C6-C7 laminectomy/fusion/fixation History of heart artery stent (~2006) History of heart bypass surgery (~2007) History of hernia surgery 4x History of knee surgery Right History of lumbar surgery [facility]. L3-L4, L4-L5, L5-S1 decompression History of uvulopalatopharyngoplasty Hx of CABG Hx of CABG Hx of cholecystectomy Family History Father , at age 63 Diabetes Mother , at age 92 Colon cancer Hypertension Social History Smoking and tobacco status: former smoker Second hand smoke exposure: No Smoking risk assessment/counseling performed?: No Alcohol intake: never Desire information about alcohol rehabilitation?: No Counseling given: No Desire information about substance/drug rehabilitation?: No Counseling given: No Adopted: No Caregiver/support person: Yes Lives independently: No Household members: significant other Marital status: Number of children: 5 service: No Current occupational status: disabled History of recent travel: No Current gender identity: Male Physical Exam Const: COMMON NORMALS: no acute distress GENERAL APPEARANCE: cooperative and comfortable ORIENTATION/CONSCIOUSNESS: Yes awake HENMT: COMMON NORMALS: normocephalic, atraumatic and hearing grossly normal bilaterally HEAD & SCALP: normocephalic and atraumatic Eye: COMMON NORMALS: Equal, round and reactive pupils present, EOMs intact bilaterally, conjunctivae normal and no scleral icterus CONJUNCTIVA: Yes conjunctivae normal PUPIL: Yes Equal, round and reactive pupils present Neck/C-Spine: COMMON NORMALS: full ROM, no lymphadenopathy, supple and no JVD Resp: COMMON NORMALS: normal respiratory effort, No retractions, No use of accessory muscles and clear to auscultation bilaterally AUSCULTATION: clear to auscultation bilaterally Cardio: COMMON NORMALS: no JVD, regular rate, regular rhythm and No murmurs present (Cardio) RATE: regular rate RHYTHM: regular rhythm GI: COMMON NORMALS: Soft to palpation and No hepatosplenomegaly present AUSCULTATION: Yes normoactive bowel sounds PALPATION: Yes Soft to palpation, No Tenderness to palpation present (GI), No Guarding due to palpation present (GI) and Yes No hepatosplenomegaly present Extremity: COMMON NORMALS: normal to inspection, capillary refill normal and no calf tenderness GENERAL: Yes edema (Lower extremity) Course Vital Signs: Vital signs: Vital Signs Temperature 989 F H 10/11/21 04:00 Pulse Rate 66 10/11/21 04:00 Respiratory Rate 18 10/11/21 04:00 Blood Pressure 142/83 10/11/21 04:00 Pulse Oximetry 90 10/11/21 04:00 MDM - General Adult Medical Decision Making Patient unable to care for himself. We are still trying to get urine from him. Suspect he may have some urinary retention. Will admit need further evaluation for stroke also concerning of level of care. Suspect he also has some mild dementia. Discussed with hospitalist orders written Medical Records I reviewed the patient's medical records. Lab Data I reviewed the patient's lab results. : 10/06/21 04:47 10/06/21 04:47 Radiology Impressions Chest X-Ray 09/29/21 14:43 IMPRESSION: No acute findings Hip X-Ray 09/29/21 17:44 IMPRESSION: Findings highly consistent with avascular necrosis resulting in subchondral fracture with subsidence of osteochondral fragment. There is secondary severe degeneration with complete loss of joint space. This is unchanged from the prior x-rays. None of these findings were present on the previous CT. Hip/Pelvis X-Ray 10/05/21 18:33 IMPRESSION: 1. Right hip arthroplasty changes seen in place with postsurgical soft tissue changes. 2. Scattered vascular calcifications. 3. Mild left hip osteoarthritis. Laboratory Results WBC 11.2 10^3/uL (4.0-10.0) H 09/29/21 15:20 RBC 4.83 10^6/uL (4.1-5.3) 09/29/21 15:20 Hgb 13.3 g/dL (11.7-16.6) 09/29/21 15:20 Hct 41.5 % (42.0-52.0) L 09/29/21 15:20 MCV 85.9 fl (80-94) 09/29/21 15:20 MCH 27.5 pg (28.0-34.0) L 09/29/21 15:20 MCHC 32.0 g/dL (30.0-36.0) 09/29/21 15:20 RDW 16.0 % (12.1-15.1) H 09/29/21 15:20 Plt Count 285 10^3/cmm (130-400) 09/29/21 15:20 MPV 10.1 fL (7.4-10.4) 09/29/21 15:20 Neut % (Auto) 82.8 % 09/29/21 15:20 Lymph % (Auto) 8.7 % 09/29/21 15:20 [place] % (Auto) 7.3 % 09/29/21 15:20 Eos % (Auto) 0.4 % 09/29/21 15:20 Baso % (Auto) 0.5 % 09/29/21 15:20 Neut # (Auto) 9.27 10^3/uL (1.8-7.7) H 09/29/21 15:20 Lymph # (Auto) 1.0 10^3/uL (0.8-4.8) 09/29/21 15:20 [place] # (Auto) 0.8 10^3/uL (0.2-0.9) 09/29/21 15:20 Eos # (Auto) 0.1 10^3/uL (0.0-0.8) 09/29/21 15:20 Baso # (Auto) 0.1 10^3/uL (0.0-0.1) 09/29/21 15:20 Nucleated RBC % (auto) 0 % 09/29/21 15:20 Nucleated RBCs # 0.0 /100WBC 09/29/21 15:20 Sodium 138 mmol/L (136-145) 09/29/21 15:20 Potassium 4.0 mmol/L (3.5-5.1) 09/29/21 15:20 Chloride 104 mmol/L (98-107) 09/29/21 15:20 Carbon Dioxide 22 mmol/L (22-29) 09/29/21 15:20 Anion Gap 16.0 (5-19) 09/29/21 15:20 BUN 17 mg/dL (8-23) 09/29/21 15:20 Creatinine 1.0 mg/dL (0.7-1.2) 09/29/21 15:20 GFR Calculation Not Reportable 09/29/21 15:20 Glucose 117 mg/dL (65-115) H 09/29/21 15:20 Calculated Osmolality 289 mOsm/kg (285-295) 09/29/21 15:20 Calcium 9.6 mg/dL (8.5-10.5) 09/29/21 15:20 Magnesium 2.1 mg/dL (1.7-2.3) 09/29/21 15:20 Total Bilirubin 0.4 mg/dL (0.15-1.2) 09/29/21 15:20 AST 12 U/L (0-40) 09/29/21 15:20 ALT 9 U/L (0-41) 09/29/21 15:20 Alkaline Phosphatase 109 IU/L (40-130) 09/29/21 15:20 Creatine Kinase 107 U/L (39-308) 09/29/21 15:20 Total Protein 7.8 g/dL (6.6-8.7) 09/29/21 15:20 Albumin 4.2 g/dL (3.5-5.2) 09/29/21 15:20 Globulin 3.6 g/dL (1.3-4.6) 09/29/21 15:20 Lipase 22 U/L (13-60) 09/29/21 15:20 Vitamin B12 226 pg/mL (232-1245) L 09/29/21 15:20 TSH 1.64 uIU/mL (0.27-4.20) 09/29/21 15:20 Urine Color Yellow (Yellow) 09/29/21 16:05 Urine Appearance Hazy (CLEAR) A 09/29/21 16:05 Urine pH 5 (5-7) 09/29/21 16:05 Ur Specific Angela 1.020 (1.005-1.030) 09/29/21 16:05 Urine Protein 1+ (Negative) H 09/29/21 16:05 Urine Glucose (UA) Norm (Normal) 09/29/21 16:05 Urine Ketones 1+ (Negative) H 09/29/21 16:05 Urine Blood 3+ (Negative) H 09/29/21 16:05 Urine Nitrate Positive (Negative) H 09/29/21 16:05 Urine Bilirubin Neg (Negative) 09/29/21 16:05 Urine Urobilinogen Norm mg/dL (Negative) 09/29/21 16:05 Ur Leukocyte Esterase 2+ (Negative) H 09/29/21 16:05 Urine RBC 0-4 /hpf (0-2) H 09/29/21 16:05 Urine WBC 55-80 /hpf (0-5) H 09/29/21 16:05 Ur Squamous Epith Cells 0-4 /hpf (0-5) H 09/29/21 16:05 Amorphous Sediment Not Reportable 09/29/21 16:05 Urine Bacteria 4+ /hpf (NONE) H 09/29/21 16:05 Serum Ketones Negative (Negative) 09/29/21 15:20 Discharge Plan Discharge Patient Disposition: Admitted As Inpatient Admit Provider: Moody Bruner Clinical Impression: Unspecified dementia without behavioral disturbance, COPD (chronic obstructive pulmonary disease) with chronic bronchitis, Lumbar stenosis with neurogenic claudication, Status post lumbar laminectomy, Dementia, Chronic right hip pain, Avascular necrosis of bone of right hip Condition: Stable Discharge Activity: Increase activity as tolerated, Limit activity as instructed, Use walker/crutches as instructed and As per PT/OT instructions Coding Level of Care Code ED Medical Data Entry Clerk for Katiuska Carter
[2021-09-29 15:34] LABS: Basophils # 0.1 10^3/uL (0.0-0.1); Basophils % 0.5 %; Eosinophils # 0.1 10^3/uL (0.0-0.8); Eosinophils % 0.4 %; Hematocrit 41.5 % (42.0-52.0); Hemoglobin 13.3 g/dL (11.7-16.6); Lymphocytes % 8.7 %; Mean Corpuscular Hemoglobin 27.5 pg (28.0-34.0); Mean Corpuscular Volume 85.9 fl (80-94); Mean Platelet Volume 10.1 fL (7.4-10.4); Monocytes # 0.8 10^3/uL (0.2-0.9); Monocytes % 7.3 %; Neutrophils # 9.27 10^3/uL (1.8-7.7); Neutrophils % 82.8 %; Nucleated Red Blood Cells % 0 %; Platelet Count 285 10^3/cmm (130-400); Red Blood Count 4.83 10^6/uL (4.1-5.3); White Blood Count 11.2 10^3/uL (4.0-10.0)
[2021-09-29 15:54] LABS: Ketone (Acetest) Serum Negative (Negative)
[2021-09-29 16:07] LABS: Alanine Aminotransferase 9 U/L (0-41); Albumin Level 4.2 g/dL (3.5-5.2); Alkaline Phosphatase 109 IU/L (40-130); Aspartate Amino Transferase 12 U/L (0-40); Blood Urea Nitrogen 17 mg/dL (8-23); Calcium 9.6 mg/dL (8.5-10.5); Carbon Dioxide 22 mmol/L (22-29); Chloride 104 mmol/L (98-107); Creatine Phosphokinase 107 U/L (39-308); Globulin 3.6 g/dL (1.3-4.6); Glucose 117 mg/dL (65-115); Lipase 22 U/L (13-60); Magnesium 2.1 mg/dL (1.7-2.3); Osmolality Calculated 289 mOsm/kg (285-295); Sodium 138 mmol/L (136-145); Total Bilirubin 0.4 mg/dL (0.15-1.2); Total Protein 7.8 g/dL (6.6-8.7)
[2021-09-29 16:49] LABS: Bilirubin Urine Neg (Negative); Blood Urine 3+ (Negative); Glucose Urine UA Norm (Normal); Ketones Urine 1+ (Negative); Leukocyte Esterase Urine 2+ (Negative); Nitrate Urine Positive (Negative); Protein Urine 1+ (Negative); Urine Appearance Hazy (CLEAR); Urine Color Yellow (Yellow); Urobilinogen Urine Norm (Negative); pH Urine 5 (5-7)
[2021-09-29 16:50] LABS: Add Urine Microscopic? YES
[2021-09-29 16:52] LABS: Add Urine Culture? Yes; Bacteria Urine 4+ /hpf; RBC Urine 0-4 /hpf (0-2); Squamous Epithelial Cell Urine 0-4 /hpf (0-5); WBC Urine 55-80 /hpf (0-5)
[2021-09-29] MEDS: HYDROcodone-acetaminophen 5-325 mg Tablet 1 TAB PO ×2 (17:01→22:13)
--- NOTE | 2021-09-29 17:08 | PC.PHAR ---
pt states his life partner pat takes care of his medications-pat states the pt hasnt had his medications for 2 days except for the eliquis states the pt has been out for a couple weeks pat states she hasnt gotten to the pharmacy to mushroom picker the eliquis 5mg bid filled on 09/20/21 30d/s-notes are made in the pharmacy comments-
--- NOTE | 2021-09-29 17:10 | PM.HP ---
Providers/Chief Complaint Primary Care Provider: Brisa Jensen, TRUCK DESPATCHER-C Chief Complaint: DECREASED MOBILITY/ WELL BEING CHECK History of Present Illness Anurag Rios is a 81 year old male who present to the hospital for hip pain. I got 3 different stories As per the ER staff patient called 911 stating he has not eaten anything last few days, he was not able to take any medications, no one is able to take care of him. When I evaluated the patient patient said he wanted to come to the hospital for his hip pain, he has been experiencing excruciating pain, no recent strokelike features, fall. He is motivated and eager to return home to take care of 5 acres of land. He has not noticed any chest pain, shortness of breath, fever diarrhea. He stating that his is at home and there is another lady that he is not sure about. When I called his she is stating that for last few days he has been experiencing visual hallucination, there is no one at the home besides the couple, he thinks his is letting people in at nighttime, he has been very aggressive and verbally abusive towards his , yesterday he had a gun by his bedside and he was threatening to harm his , is stating that he is nice to everyone except her. has been giving him food and water and offered him medication but he refused. is stating that Dr. Park was planning for cardiac stress test as a preop work-up for his right hip replacement. He has seen Dr. Castano in the past. Today call the police stating that he has been estranged Review of Systems Const: Denies: fever(s) Eyes: Denies: change in vision ENMT: Denies: throat pain Card: Reports: dyspnea on exertion; Denies: chest pain Resp: Reports: dyspnea GI: Denies: abdominal pain : Denies: flank pain Musc: Reports: back pain, extremity pain, joint pain, joint stiffness, limited range of motion and muscle weakness Skin/Breast: Denies: rash Neuro: Denies: headache(s) Psych: Denies: anxiety Endo: Denies: polyuria Jm/Lymph: Denies: easy bruising All/Imm: Denies: urticaria Medications/Allergies Home Medications Medication Instructions Recorded Confirmed Last Taken Type albuterol sulfate 90 mcg/actuation 2 puff INHALATION QID PRN #8.5 gm 08/26/21 09/29/21 Unknown Rx aerosol inhaler (ProAir HFA) baclofen 10 mg tablet 10 mg PO TID #90 tab 08/26/21 09/29/21 09/26/21 Rx Doans Pill For Kidney 1 tab PO BID 09/29/21 09/29/21 Unknown History apixaban 5 mg tablet (Eliquis) 5 mg PO BID@,09/29/21 09/29/21 Unknown History aspirin 325 mg tablet 325 mg PO BEDTIME 09/29/21 09/29/21 09/26/21 History budesonide 0.5 mg/2 mL suspension 0.5 mg INHALATION BID PRN 09/29/21 09/29/21 Unknown History for nebulization (Pulmicort) diphenhydramine 25 2 tab PO BEDTIME 09/29/21 09/29/21 Unknown History mg-acetaminophen 500 mg tablet (Tylenol PM Extra Strength) furosemide 40 mg tablet (Lasix) 40 mg PO DAILY PRN 09/29/21 09/29/21 Unknown History ibuprofen 200 mg tablet 200 mg PO BEDTIME 09/29/21 09/29/21 Unknown History lubiprostone 24 mcg capsule 24 mcg PO BID@,09/29/21 09/29/21 Unknown History (Amitiza) melatonin 3 mg tablet 6 mg PO BEDTIME 09/29/21 09/29/21 Unknown History metoprolol tartrate 25 mg tablet 25 mg PO BID@,09/29/21 09/29/21 09/26/21 History nitroglycerin 0.4 mg sublingual 0.4 mg SUBLINGUAL Q5M PRN 09/29/21 09/29/21 Unknown History tablet (Nitrostat) polyethylene glycol 3350 17 gram 17 g PO BEDTIME 09/29/21 09/29/21 Unknown History oral powder packet (Miralax) quetiapine 50 mg tablet (Seroquel) 50 mg PO BEDTIME@09/29/21 09/29/21 09/26/21 History sertraline 100 mg tablet 100 mg PO DAILY@09/29/21 09/29/21 Unknown History triamcinolone acetonide 0.1 % 1 applic TOPICAL BID PRN 09/29/21 09/29/21 Unknown History topical cream Allergies Allergy/AdvReac Type Severity Reaction Status Date / Time hydromorphone Allergy hives Verified 09/29/21 16:51 PFSH Acute PFSH: Medical History Acute on chronic congestive heart failure Acute urinary retention Atherosclerotic heart disease of [place] coronary artery without angina pectoris Benign essential hypertension with target blood pressure below 140/90 CAD (coronary artery disease) Chronic constipation Chronic knee pain Chronic neck and back pain Chronic prescription opiate use Chronic prescription opiate use Chronic right hip pain 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 Diastolic heart failure DVT (deep venous thrombosis) Dyslipidemia Encounter for long-term opiate analgesic use Generalized anxiety disorder Gram-positive bacteremia 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 History of DVT (deep vein thrombosis) Hx of cervical spinal arthrodesis Hypertension Insomnia Intervertebral disc disorder with radiculopathy of lumbosacral region Lower abdominal pain Lumbar disc disease Lumbar spondylosis Lumbar stenosis with neurogenic claudication Major depressive disorder, recurrent severe without psychotic features Pain, joint, hand, right Pain, joint, shoulder, right Peripheral vascular disease Radial head fracture SBO (small bowel obstruction) Scoliosis of lumbar spine Skin tear Sleep apnea, unspecified SOB (shortness of breath) Uncircumcised male Unspecified dementia without behavioral disturbance Urinary retention Surgical History History of cervical spinal surgery 1979 [facility] C6-C7 laminectomy/fusion/fixation History of heart artery stent (~2006) History of heart bypass surgery (~2007) History of hernia surgery 4x History of knee surgery Right History of lumbar surgery [facility]. L3-L4, L4-L5, L5-S1 decompression History of uvulopalatopharyngoplasty Hx of CABG Hx of cholecystectomy Family History Father , at age 63 Diabetes Mother , at age 92 Colon cancer Hypertension Social History Smoking and tobacco status: former smoker Second hand smoke exposure: No Smoking risk assessment/counseling performed?: No Alcohol intake: never Desire information about alcohol rehabilitation?: No Counseling given: No Desire information about substance/drug rehabilitation?: No Counseling given: No Adopted: No Caregiver/support person: Yes Lives independently: No Household members: significant other Marital status: Number of children: 5 service: No Current occupational status: disabled History of recent travel: No Current gender identity: Male Vitals/I&O/Wt Last Vital Signs Temp 98.8 F 09/29/21 14:25 Pulse 106 H 09/29/21 14:25 Resp 18 09/29/21 14:25 BP 108/108 09/29/21 14:25 Pulse Ox 96 09/29/21 14:25 Weight last 48 hrs Weight 90.718 kg Physical Exam Narrative: Patient is very pleasant cooperative during my evaluation He is awake and alert Nonfocal neuro exam Limited range of motion of right hip No vascular compromise Unkept appearance Looks dehydrated Tachycardia A. fib RVR Clinical signs of dehydration S1, S2 with systolic murmur grade 2/6 Abdomen is soft Trace edema of legs Onychomycosis Data : 09/29/21 15:20 09/29/21 15:20 A&P Assessment and plan (1) Avascular necrosis of bone of right hip: Status: Acute (2) Chronic knee pain: Status: Acute (3) Chronic right hip pain: Status: Acute (4) Postlaminectomy syndrome of lumbar region: Status: Acute (5) DDD (degenerative disc disease), lumbosacral: Status: Acute (6) Insomnia: Status: Chronic (7) Dementia: Status: Chronic (8) History of DVT (deep vein thrombosis): Status: Acute (9) Peripheral vascular disease: Status: Acute (10) COPD (chronic obstructive pulmonary disease) with chronic bronchitis: Status: Chronic (11) Generalized anxiety disorder: Status: Chronic (12) Generalized weakness: Status: Acute (13) Major depressive disorder, recurrent severe without psychotic features: Status: Acute (14) Delusional disorder: Status: Acute Plan Visual hallucination Delusional, no acute exacerbation We will get neuropsych evaluation Signs of UTI noted Obtain urine culture Start ceftriaxone Check TSH, B12 Patient is dehydrated Start IV fluids Hold Lasix Sinus tachyarrhythmia Obtain EKG to know the rhythm Right bundle branch block Right hip avascular necrosis Obtain hip x-ray We will do cardiac stress test and echo in the morning We will touch base with Dr. 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
--- NOTE | 2021-09-29 17:44 | XRR_ITS ---
PROCEDURE INFORMATION: Exam: XR Right Hip Exam date and time: 09/29/2021 5:02 PM Age: 81 years old Clinical indication: Hip pain; Right hip TECHNIQUE: Imaging protocol: XR Right hip. Views: 1 view hip with pelvis when performed. COMPARISON: CR XR hip RT 2-3V wo/w pel* [id number] 06/08/2021 10:07 AM, 05/06/2021, CT abdomen and pelvis 09/10/2020 FINDINGS: Bones/joints: There is no fracture or dislocation. There is complete loss of the joint space of the right hip. This is a central joint space loss. There are small subchondral cysts present. There is deformity of the femoral head with superior collapse. Soft tissues: Unremarkable. XR/XR hip RT 1V wo/w pel [id number] IMPRESSION: Findings highly consistent with avascular necrosis resulting in subchondral fracture with subsidence of osteochondral fragment. There is secondary severe degeneration with complete loss of joint space. This is unchanged from the prior x-rays. None of these findings were present on the previous CT.
[2021-09-29] MEDS: labetalol 5 mg/mL SDV 20mL 10 MG IVP (19:27)
[2021-09-29 19:28] VITALS: BP 213/119; PULSE 96; RESP 21; O2SAT 94
--- NOTE | 2021-09-29 20:11 | PC.NURSE ---
1999-Report to STEFAN Case on Med surg.
[2021-09-29 20:33] VITALS: BP 169/127; PULSE 81; RESP 19; O2SAT 95
[2021-09-29 20:40] VITALS: BMI 27.1
--- NOTE | 2021-09-29 20:40 | USCV_ITS ---
Anurag Rios Age: 81 Gender: M : 1940 Exam Date: 09/29/2021 20:59 Ordering Phys: Moody Bruner MD Technologist: Lazaro Hussein Exam Location: [facility] [place] Indication: pre op BP: / HR: 80 Rhythm: Sinus Technical Quality: Adequate MEASUREMENTS (Male / Female) Normal Values 2D ECHO LV Diastolic Diameter PLAX 3.7 cm 4.2 - 5.9 / 3.9 - 5.3 cm LV Systolic Diameter PLAX 2.5 cm IVS Diastolic Thickness 1.4 cm 0.6 - 1.0 / 0.6 - 0.9 cm IVS Systolic Thickness 1.9 cm LVPW Diastolic Thickness 1.7 cm 0.6 - 1.0 / 0.6 - 0.9 cm LVPW Systolic Thickness 1.5 cm LVOT Diameter 2.0 cm LV Ejection Fraction 2D Teich 60.3 % LV Ejection Fraction MOD 2C 49.7 % LV Ejection Fraction 2C AL 50.0 % LA Diameter 4.3 cm LA Width 5.1 cm LA Height 4.4 cm Aorta at Sinotubular Diameter 3.0 cm M-MODE Aortic Annulus Diameter 3.6 cm LA Ao Ratio MM 1.2 MV E Point Septal Separation 0.8 cm DOPPLER AV Peak Velocity 152.5 cm/s LVOT Peak Velocity 106.0 cm/s AV Area Cont Eq vti 3.1 cm squared AV Area Cont Eq pk 2.2 cm squared MV Area PHT 3.9 cm squared Mitral E to A Ratio 0.5 MV E' Velocity 30.0 cm/s Mitral E to MV E' Ratio 9.1 Mitral E to LV E' Lateral Ratio 7.7 Mitral E to LV E' Septal Ratio 11.5 TR Peak Velocity 119.0 cm/s TR Peak Gradient 5.7 mmHg TR Mean Velocity 112.7 cm/s TR Mean Gradient 5.4 mmHg TR Velocity Time Integral 34.3 cm Right Atrial Pressure 3.0 mmHg Pulmonary Artery Systolic Pressu 8.7 mmHg PV Peak Velocity 87.0 cm/s FINDINGS Left Ventricle Normal left ventricular size. LV systolic function is normal with EF of 55-60%. No regional wall motion abnormalities. Grade 1 diastolic dysfunction Right Ventricle The right ventricle is normal in size and function. Right Atrium The right atrium is normal in size. Left Atrium The left atrium is normal in size. Mitral Valve Mitral annular calcification without significant stenosis or prolapse. There is trace mitral regurgitation. Aortic Valve Grossly normal without significant stenosis. There is no aortic regurgitation. Tricuspid Valve Structurally normal tricuspid valve without significant stenosis. Mild tricuspid regurgitation. Pulmonary artery systolic pressure is normal. Pulmonic Valve Not well visualized Pericardium Normal pericardium without effusion. Aorta Normal ascending aorta dimension. CONCLUSIONS LV systolic function is normal with EF of 55-60% Grade 1 diastolic dysfunction Mitral annular calcification is seen. Trace mitral regurgitation Mild tricuspid regurgitation Compared to prior echocardiogram from 09/27/2019, no significant changes are seen Stanford Fontanez MD (Electronically Signed) Final Date: 30 September 2021 11:44 S
--- NOTE | 2021-09-29 20:40 | ECG_ITS ---
[facility] Test Date: 2021-09-30 Pat Name: Anurag Rios Department: Room: 262 Gender: Male Dba: Zelda BaileyFreddy : 1940 Requested By: Moody Bruner Order Number: [id number] Tuan MD: Velvet Park M.D. Interpretive Statements NAME OF STUDY: LEXISCAN SESTAMIBI STRESS TEST INDICATION: Preoperative clearance, PROCEDURE: At the baseline, the EKG revealed sinus rhythm with poor R wave progression. Nonspecific IVCD. Possible old inferior WI. The baseline blood pressure was 143/87 mm Hg with a heart rate of 87 beats/min. Lexiscan was infused over a period of 20 seconds. A total of 0.4 milligrams of Lexiscan was infused. The stress phase was continued for a total of 5 minutes. Heart rate at the end of the stress phase was 95 with a blood pressure 111/80. The EKG at the peak infusion revealed frequent PVCs were noted on the monitor Sestamibi was injected 20 seconds after the Lexiscan infusion. Blood pressure at the end of the recovery phase was 127/76 with a heart rate of 93 per minute. CONCLUSION: 1. Lexiscan induced ventricular arrhythmia with no ischemic changes. 2. No LexiScan induced chest pain . 3. Normal blood pressure and heart rate response 4. Sestamibi/sestamibi perfusion scan pending; see separate report. Electronically Signed On 10-01-2021 13:23:26 CDT by Velvet Park M.D. [id number]
[2021-09-29 20:50] VITALS: BP 178/93; PULSE 88; RESP 21; TEMP 36.7; O2SAT 94
[2021-09-29 21:08] LABS: Thyroid Stimulating Hormone 1.64 uIU/mL (0.27-4.20)
[2021-09-29 22:00] VITALS: PULSE 80
[2021-09-29] MEDS: aspirin 81 mg EC Tablet PO (22:10)
[2021-09-29] MEDS: polyethylene glycol 3350 Pkt 17 gm PO (22:10)
[2021-09-29] MEDS: baclofen 10 mg Tablet PO (22:10)
[2021-09-29] MEDS: metoprolol tartrate 25 mg Tablet PO (22:10)
[2021-09-29] MEDS: sertraline 100 mg Tablet PO (22:10)
[2021-09-29] MEDS: nitrofurantoin SR (BID) 100 mg Capsule PO (22:11)
[2021-09-29] MEDS: quetiapine 25 mg Tablet 50 MG PO (22:11)
[2021-09-29] MEDS: sodium chloride 0.9% 1,000 ML 100 ML IV (22:11)
[2021-09-29] MEDS: cefTRIAXone 1,000 MG in sodium chloride 0.9% (plus) 50 ML 100 MG IV (22:11)
[2021-09-29] MEDS: pneumococcal (23 valent) SDV 0.5 mL IM (22:45)
[2021-09-30] VITALS (8 sets, daily range): BP systolic 119–198; BP diastolic 66–90; PULSE 65–97; RESP 16–20; TEMP 36.8–36.9; O2SAT 90–96
[2021-09-30 00:29] LABS: Vitamin B12 226 pg/mL (232-1245)
[2021-09-30 05:32] LABS: Basophils # 0.1 10^3/uL (0.0-0.1); Basophils % 0.6 %; Eosinophils # 0.5 10^3/uL (0.0-0.8); Eosinophils % 4.6 %; Hematocrit 38.6 % (42.0-52.0); Hemoglobin 12.4 g/dL (11.7-16.6); Lymphocytes # 1.8 10^3/uL (0.8-4.8); Lymphocytes % 17.8 %; Mean Corpuscular HGB Conc 32.1 g/dL (30.0-36.0); Mean Corpuscular Hemoglobin 28.3 pg (28.0-34.0); Mean Corpuscular Volume 88.1 fl (80-94); Mean Platelet Volume 9.7 fL (7.4-10.4); Monocytes % 9.5 %; Neutrophils # 6.69 10^3/uL (1.8-7.7); Neutrophils % 67.2 %; Nucleated Red Blood Cells % 0 %; Platelet Count 235 10^3/cmm (130-400); Red Blood Count 4.38 10^6/uL (4.1-5.3); Red Cell Distribution Width 16.1 % (12.1-15.1)
[2021-09-30 05:50] LABS: Alanine Aminotransferase 8 U/L (0-41); Albumin Level 3.4 g/dL (3.5-5.2); Alkaline Phosphatase 94 IU/L (40-130); Anion Gap 14.4 (5-19); Aspartate Amino Transferase 12 U/L (0-40); Blood Urea Nitrogen 12 mg/dL (8-23); Calcium 9.2 mg/dL (8.5-10.5); Carbon Dioxide 23 mmol/L (22-29); Chloride 107 mmol/L (98-107); Globulin 3.7 g/dL (1.3-4.6); Glucose 84 mg/dL (65-115); Osmolality Calculated 291 mOsm/kg (285-295); Potassium 3.4 mmol/L (3.5-5.1); Sodium 141 mmol/L (136-145); Total Bilirubin 0.3 mg/dL (0.15-1.2); Total Protein 7.1 g/dL (6.6-8.7)
[2021-09-30] MEDS: HYDROcodone-acetaminophen 5-325 mg Tablet 1 TAB PO ×3 (07:50→22:53)
[2021-09-30] MEDS: hyDRALAzine 10 mg Tablet PO ×3 (08:02→20:40)
[2021-09-30] MEDS: amlodipine 10 mg Tablet PO (08:02)
--- NOTE | 2021-09-30 08:54 | PM.PN ---
Subjective Subjective: Patient is given amlodipine, hydralazine for hypertensive urgency N.p.o. No active chest pain, going for stress test Patient is stating that he pulled out a gun at home because he thinks his is seeing a younger lay and he is concerned that his property and assets will not remain with him When I asked him about describing the appearance of younger lay, he was not able to do so Neuropsych evaluation is pending Vitals/I&O/Wt Last Vital Signs Temp 98.2 F 09/30/21 07:56 Pulse 77 09/30/21 08:00 Resp 16 09/30/21 08:00 BP 198/90 09/30/21 07:56 Pulse Ox 93 09/30/21 08:00 09/29/21 09/30/21 09/30/21 22:59 06:59 14:59 Intake Total 581.667 / 581.667 150 / 731.667 Output Total 100 / 100 Balance 581.667 / 581.667 50 / 631.667 Weight last 48 hrs Weight 83.325 kg Weight 90.718 kg Weight 90.718 kg Physical Exam Narrative: Patient is laying comfortably systolic murmur Abdomen is soft Euvolemic Onychomycosis Unkept appearance Patient and comfortably in his bed On room air S1, S2 Denied hallucinations Nonfocal neuro exam Awake and alert Cooperative Abdomen is soft Data : 09/30/21 05:23 09/30/21 05:23 A&P Assessment and plan (1) Delusional disorder: Status: Acute (2) Avascular necrosis of bone of right hip: Status: Acute (3) DDD (degenerative disc disease), lumbosacral: Status: Acute (4) Avascular necrosis of hip: Status: Acute (5) History of DVT (deep vein thrombosis): Status: Acute (6) COPD (chronic obstructive pulmonary disease) with chronic bronchitis: Status: Chronic (7) Peripheral vascular disease: Status: Acute (8) Hypertension: Status: Chronic Qualifiers: Hypertension type: essential hypertension Qualified Code(s): I10 - Essential (primary) hypertension (9) Generalized anxiety disorder: Status: Chronic (10) Major depressive disorder, recurrent severe without psychotic features: Status: Acute Plan Avascular necrosis of right hip Chronic hip pain Patient is going for cardiac stress test as preop work-up will touch base with orthopedics Delusional disorder: No acute exacerbation, Requested neuropsych evaluation UTI: Currently on ceftriaxone We will follow up with urine culture Advance diet to cardiac after stress test Hypertensive urgency: Added amlodipine and hydralazine, will add high-dose metoprolol after his stress test Full code History of DVT: Avoid Eliquis in case orthopedics would plan for any intervention, avoid lisinopril for hypertension Attestations Medical Necessity Statement*: Continue hospitalization Time Spent in Patient Care: 20min Coding Level of Care Code Acute Study Abroad Coordinator for g Fwd Diagnoses Delusional disorder F22 Avascular necrosis of bone of right hip M87.051 DDD (degenerative disc disease), lumbosacral M51.37 Avascular necrosis of hip M87.059 History of DVT (deep vein thrombosis) Z86.718 COPD (chronic obstructive pulmonary disease) with chronic bronchitis J44.9 Peripheral vascular disease I73.9 Hypertension I10 Hypertension type: essential hypertension Generalized anxiety disorder F41.1 Major depressive disorder, recurrent severe without psychotic features F33.2
--- NOTE | 2021-09-30 10:58 | PC.CHAP ---
Pastoral Care Encounter/Spiritual Assessment Type of Contact [] Declined debt collector visit [] Patient/Family/Request visit [] Outpatient visit [] Follow-up visit [] Physician referral [] Code/Alert [x] Routine visit [] Staff referral [] Actively dying [] Patient sleeping [] Family support [] [] Out of room [] Palliative care [] [x] Receiving care in room [] Pre-surgical visit [] Trauma [] Long length of stay [] ICU visit [] Other: Relational/Emotional Strength [x] Patient feels connected with others/family/visitors/staff [] Distress [] Loneliness/isolation [] Abandonment Spirituality of Patient [x] Person of Vanna [] Attends Mosque of their Vanna [x] Believes in Prayer [] Reads Bible or Cheondoism materials [] There are Spiritual issues to be addressed Corporate Secretary Interventions [x] Prayer [x] Active listening [x] Non-anxious presence [x] Spiritual/emotional support [] Crisis/trauma care [x] Spiritual counseling [] Bereavement support [] Provided bereavement packet [] Provided Bible/devotional materials [] Provided toy/stuffed animal, coloring book to patient or family member [] Provided Communion [] Anointing/[place] [] Salvation [x] Completed spiritual assessment [] Other: Impact on Illness or Injury [] Angry [] Fearful [x] Anxious [] Often cries [] Exhaustion [] Unable to work [] Unable to attend episcopal [] Unable to walk/stand [] Unable to read [] Unable to drive [] Unable to eat/drink [] Unable to sleep [] Unable to be with family [] Patient intubated [] Other: Summary had tests waiting on doctors re[port has negative feelings will be able to home Time spent with patient 10 mins
[2021-09-30] MEDS: regadenoson 0.4 Mg/5 ml Syringe IVP (11:35)
[2021-09-30] MEDS: baclofen 10 mg Tablet PO ×2 (14:27→20:40)
[2021-09-30] MEDS: nitrofurantoin SR (BID) 100 mg Capsule PO ×2 (14:28→17:58)
[2021-09-30] MEDS: sertraline 100 mg Tablet PO (20:40)
[2021-09-30] MEDS: quetiapine 25 mg Tablet 50 MG PO (20:40)
[2021-09-30] MEDS: cefTRIAXone 1,000 MG in sodium chloride 0.9% (plus) 50 ML 100 MG IV (20:40)
[2021-09-30] MEDS: metoprolol tartrate 25 mg Tablet PO (20:40)
[2021-09-30] MEDS: polyethylene glycol 3350 Pkt 17 gm PO (20:40)
[2021-09-30] MEDS: aspirin 81 mg EC Tablet PO (20:40)
--- NOTE | 2021-09-30 20:40 | NMCV_ITS ---
NM kim perf SPECT r/s* [id number] Anurag Rios Age: 81 Gender: M : 1940 Exam Date: 09/30/2021 10:53 Ordering Phys: Moody Bruner MD Technologist: GENESIS Hopson Exam Location: [facility] Indications: CHEST PAIN STRESS TEST [facility] IMAGE PROTOCOL Rest/Stress 1 Lexiscan Day Radiopharmaceutical Dose (mCi) Administration Site Administered by Rest: Tc-99m 10.7 IV GENESIS Hopson Sestamibi Stress:Tc-99m 32.8 IV GENESIS Velázquez Sestamibi Rest: 30-Sep-2021 60 Discovery 630 Stress: 30-Sep-2021 30 Discovery 630 0.4mg Lexiscan. Supine position only as patient was unable to lay prone. SPECT RESULTS Technical Quality: Excellent Raw Data Analysis: Normal Image Corrections: No attenuation or motion correction applied Summed Stress Score: 0 Summed Rest Score: 1 Summed Difference Score: 0 PERFUSION FINDINGS A small area of slightly decreased tracer uptake was noted in the mid inferior wall., With no significant reversibility FUNCTIONAL RESULTS (calculated via Gated SPECT) Stress Image LV EF (%): 65 Stress EDV (mL):110 TID: 0.98 Stress ESV (mL):38 FUNCTIONAL FINDINGS: Segmental wall motion analysis revealing no gross wall motion normalities IMPRESSIONS 1. Myocardial perfusion imaging revealing a small area of slightly decreased persistent tracer uptake in the mid inferior wall region, most likely represent attenuation artifact. 2. Normal LV ejection fraction of 65%. 3. LV wall motion analysis revealing no gross wall motion abnormalities. 4. Normal LV volume. No significant coronary ischemia, based on the above findings Dr Velvet Park MD [facility] (Electronically Signed) Final Date: 01 October 2021 09:10 S
[2021-09-30 21:19] LABS: Glucose Point of Care 139 mg/dL (70-110)
[2021-10-01] VITALS (10 sets, daily range): BP systolic 148–169; BP diastolic 70–86; PULSE 66–88; RESP 16–21; TEMP 36.7–37.3; O2SAT 93–95
[2021-10-01] MEDS: HYDROcodone-acetaminophen 5-325 mg Tablet 1 TAB PO ×5 (04:20→21:49)
[2021-10-01] MEDS: metoprolol tartrate 25 mg Tablet PO ×2 (08:25→21:42)
[2021-10-01] MEDS: amlodipine 10 mg Tablet PO (08:25)
[2021-10-01] MEDS: hyDRALAzine 10 mg Tablet PO ×3 (08:25→21:42)
[2021-10-01] MEDS: baclofen 10 mg Tablet PO ×3 (08:26→21:42)
--- NOTE | 2021-10-01 09:21 | PM.PN ---
Subjective Subjective: Patient is complaining of worsening of right hip pain, not able to ambulate Stress test showing attenuation echo is unremarkable Escalate opioids to IV Dilaudid We will touch base with orthopedic service today Vitals/I&O/Wt Last Vital Signs Temp 98.0 F 10/01/21 07:41 Pulse 78 10/01/21 07:51 Resp 18 10/01/21 07:51 BP 153/86 10/01/21 07:41 Pulse Ox 95 10/01/21 07:51 09/30/21 10/01/21 10/01/21 22:59 06:59 14:59 Intake Total 470 / 4158.634 1162 / 3108.333 Output Total 600 / 675 600 / 1275 Balance -130 / 993.333 840 / 1833.333 Weight last 48 hrs Weight 84.867 kg Weight 83.325 kg Weight 90.718 kg Weight 90.718 kg Physical Exam Narrative: Patient is laying in his bed Complaining of right hip pain Saturating well on room air S1-S2 Nonfocal neuro exam No vascular compromise of extremities Patient looks euvolemic Cooperative and pleasant EOMI, PERRLA No audible stridor or wheezing Data : 09/30/21 05:23 09/30/21 05:23 Micro: Microbiology 09/29/21 16:05 Urine Culture - Preliminary Urine,Clean Catch Gram Negative Rods A&P Assessment and plan (1) Delusional disorder: Status: Acute (2) Avascular necrosis of bone of right hip: Status: Acute (3) Chronic knee pain: Status: Acute (4) DDD (degenerative disc disease), lumbosacral: Status: Acute (5) Chronic neck and back pain: Status: Acute (6) Urinary tract infection: Status: Acute Plan UTI: Currently on ceftriaxone No signs of encephalopathy Delusional disorder without acute exacerbation, could be UTI related We will follow up with neuropsych recommendations Patient is stating that he has seen Dr. Erickson last night, Right hip avascular necrosis Preoperative work-up is unremarkable, echo was unremarkable We will touch base with Dr. Castano, I have left a voicemail On-call surgeon is Dr. Iniguez, he asked me to touch base with Dr. Castano Patient is not n.p.o. today He is not able to ambulate because of avascular necrosis, He will not be able to participate for physical therapy Escalated opioids to Dilaudid today Continue consistent carb diet Bowel regimen Patient is full code Hypertension: Add metoprolol Attestations Medical Necessity Statement*: Continue medical management Time Spent in Patient Care: 30mins Coding Level of Care Code Acute Network Planner for Josephineg Fwd Diagnoses Delusional disorder F22 Avascular necrosis of bone of right hip M87.051 Chronic knee pain M25.569; G89.29 DDD (degenerative disc disease), lumbosacral M51.37 Chronic neck and back pain M54.2; M54.9; G89.29 Urinary tract infection N39.0
[2021-10-01] MEDS: nitrofurantoin SR (BID) 100 mg Capsule PO ×2 (13:45→17:51)
[2021-10-01] MEDS: enoxaparin 40 mg/0.4 mL Syringe SUBCUT (13:45)
--- NOTE | 2021-10-01 14:14 | P.NPUCON_ITS ---
Providers/Reason for Consult Consulting Physican/Specialty*: Pritesh Erickson MD. Psychiatry. Reason for Consult*: Delirium versus delusional disorder. Attending Physician: Moody Bruner MD Primary Care Provider: MEGGAN Obando Psych Consult HPI History of Present Illness Anurag Rios is a 81 year old male here to the emergency department with some medical complaints which led to further testing and he will be admitted to the unit for definitive treatment of the issues. He was noted to likely have a UTI and antibiotics were initiated. He was making strange statements including statements about thinking his was cheating on him and possibly pulling a gun. Psychiatric consult requested to evaluate the situation. Patient is known to this entry writer through previous consultation back to and an excerpt of that is included below for context especially because he seems less cognitively clear this time versus during that evaluation. He did not have any strange statements to me when this entry writer interact with him today. He reports that he does not know why he is really at the hospital does not recall the exact circumstances but knew that he was in [facility]. He knew he was having significant hip discomfort which had been one of his complaints. He reports that he lives at home with a girlfriend. Or did until recently. He was able to identify it was 2021 with it and wondered if it was 2022. He is basically oriented and we discussed the possibility of doing a full MMSE tomorrow. He did report having some memory issues that he was aware of but did not know about the event with a gun or any other thoughts that this entry writer had about strain circumstances that led up to him being here. But he was fairly l ucid and alert and able to answer basic questions with a little thought and did not have any signs of oscillating or vacillating mentation or clarity. Per his 06/18/2020 [facility] inpatient psychiatric consultation: History of Present Illness Anurag Rois is a 80 year old male who presented to the emergency department with the following report: Chief Complaint: Abdominal Pain Stated Complaint: abd pain, constipation and cather issues Time Seen by Provider: 06/17/20 21:19 Source: patient and EMS Mode of arrival: EMS Limitations: no limitations History of Present Illness:?? HPI narrative: Mr. Rios is a nice 80-year-old male brought in by EMS with report of abdominal pain and vomiting.? Patient states he was recently in this hospital for similar complaints.? Patient states that he has not had a bowel movement in over a week.? He only reports one episode of vomiting which was yesterday.? He is not believed to have had a fever.? Denies any other complaints such as headache, chest pain, shortness of breath, flank pain, musculoskeletal symptoms or otherwise.? EMS also reports the patient is living in [facility] They state the patient apparently gives his checked a woman that comes in checks on him once a day and give some food.? They state.? He is living and is essentially a dump.? They state the patient claims that he sits in his room with his gun to protect his things as the female that checks on him has a daughter who will try to steal from him.? EMS reports the patient's bedroom was covered in trash and they do not see how the patient could rest or care for himself of these conditions. Associated Symptoms: Reports constipation, nausea and vomiting; Denies chills, coffee ground emesis, GI cramping, diarrhea, dysuria, fever(s), heartburn, hematochezia, hematuria, hematemesis, melena and syncope. He was admitted to the [facility] department for definitive treatment of his issues.? They worked to manage his partial bowel obstruction and multiple other medical comorbidities.? Ultimately his living situation was untenable and unsafe for him to try to manage his overall health in a safe manner.? Assisted living/retirement supportive living arrangements were found and a desire for a psychiatric consult to rule out need for inpatient services was requested.? Anurag presents today complaining of chest pains and other concerns which he was not fully understanding of this doctors separate role in his care.? According to his nurse he has vacillating complaints including chest pain that are very f requent.? Ultimately after I explained to him that I need to talk to him about his overall functioning, and he was conversant and answering the questions without issue or resistance. Psych history: Denies any inpatient hospitalizations or major psychiatric treatment endorse having been medications for depression anxiety. Substance abuse history: Denies cigarettes alcohol marijuana or any other illicit drug use.? He does report having alcohol use in the past.? He denies going to rehab but he does report having DUIs in his history/DWIs. Family history: He denies significant health issues that run in the family.? He does however report having a nephew who committed suicide. Developmental history: He denies any problems with his mom's or /delivery of him.? He learned to walk and talk and met his developmental milestones on time.? When he went to school he did not require speech therapy, learning support, emotional support or special education classes. Psychosocial history: He reports that his mother and father were together until one of them .? He is the middle child of the 7 children that they had.? He reports that his childhood was good and that there was no emotional, physical or sexual abuse.? He did not go to high school.? Endorses being a heterosexual and his longest relationship was 10+ years.? He was twice twice.? He had a son who of cancer years ago.? He was never , and denies specific presybeterian belief system.? He reports that he did have meaningful employment.? Lives in a house alone. Legal history: He reports he has been in detention a couple of times.? He reports longest time was 25 years and he does not want to discuss why. Medical history: Please see ED note for the list of the medical comorbidities. Meds Home Medications and Allergies Home Medications Medication Instructions Recorded Confirmed Last Taken Type albuterol sulfate 90 mcg/actuation 2 puff INHALATION QID PRN #8.5 gm 08/26/21 09/29/21 Unknown Rx aerosol inhaler (ProAir HFA) baclofen 10 mg tablet 10 mg PO TID #90 tab 08/26/21 09/29/21 09/26/21 Rx Doans Pill For Kidney 1 tab PO BID 09/29/21 09/29/21 Unknown History apixaban 5 mg tablet (Eliquis) 5 mg PO BID@08,21 09/29/21 09/29/21 Unknown History aspirin 325 mg tablet 325 mg PO BEDTIME 09/29/21 09/29/21 09/26/21 History budesonide 0.5 mg/2 mL suspension 0.5 mg INHALATION BID PRN 09/29/21 09/29/21 Unknown History for nebulization (Pulmicort) diphenhydramine 25 2 tab PO BEDTIME 09/29/21 09/29/21 Unknown History mg-acetaminophen 500 mg tablet (Tylenol PM Extra Strength) furosemide 40 mg tablet (Lasix) 40 mg PO DAILY PRN 09/29/21 09/29/21 Unknown History ibuprofen 200 mg tablet 200 mg PO BEDTIME 09/29/21 09/29/21 Unknown History lubiprostone 24 mcg capsule 24 mcg PO BID@,09/29/21 09/29/21 Unknown History (Amitiza) melatonin 3 mg tablet 6 mg PO BEDTIME 09/29/21 09/29/21 Unknown History metoprolol tartrate 25 mg tablet 25 mg PO BID@,09/29/21 09/29/21 09/26/21 History nitroglycerin 0.4 mg sublingual 0.4 mg SUBLINGUAL Q5M PRN 09/29/21 09/29/21 Unknown History tablet (Nitrostat) polyethylene glycol 3350 17 gram 17 g PO BEDTIME 09/29/21 09/29/21 Unknown History oral powder packet (Miralax) quetiapine 50 mg tablet (Seroquel) 50 mg PO BEDTIME@09/29/21 09/29/21 09/26/21 History sertraline 100 mg tablet 100 mg PO DAILY@09/29/21 09/29/21 Unknown History triamcinolone acetonide 0.1 % 1 applic TOPICAL BID PRN 09/29/21 09/29/21 Unknown History topical cream Allergies Allergy/AdvReac Type Severity Reaction Status Date / Time hydromorphone Allergy hives Verified 09/29/21 16:51 Current Medications Current Medications Generic Name Dose Route Start Last Admin Trade Name Patrice PRN Reason Stop Dose Admin Hydrocodone Bitart/Acetaminophen 1 tab 09/29/21 20:40 10/01/21 13:48 Hydrocodone-Acetaminophen 5-325 Mg Tablet PO 1 tab Q4H PRN Administration MODERATE TO SEVERE PAIN Amlodipine Besylate 10 mg 09/30/21 08:00 10/01/21 08:25 Amlodipine 10 Mg Tablet PO 10 mg DAILY CHRIS Administration Aspirin 81 mg 09/29/21 21:00 09/30/21 20:40 Aspirin 81 Mg Ec Tablet PO 81 mg BEDTIME CHRIS Administration Baclofen 10 mg 09/29/21 21:00 10/01/21 13:45 Baclofen 10 Mg Tablet PO 10 mg TID CHRIS Administration Enoxaparin Sodium 40 mg 10/01/21 10:00 10/01/21 13:45 Enoxaparin 40 Mg/0.4 Ml Syringe SUBCUT 40 mg Q24H CHRIS Administration Hydralazine HCl 10 mg 09/30/21 09:00 10/01/21 13:48 Hydralazine 10 Mg Tablet PO 10 mg TID CHRIS Administration Ceftriaxone Sodium 1,000 mg/ 50 mls @ 100 mls/hr 09/29/21 21:00 09/30/21 21:10 Sodium Chloride IV Infused Q24H CHRIS Infusion Protocol Metoprolol Tartrate 25 mg 09/29/21 21:00 10/01/21 08:25 Metoprolol Tartrate 25 Mg Tablet PO 25 mg BID@ CHRIS Administration Nitrofurantoin Macrocrystals 100 mg 09/29/21 20:40 10/01/21 13:45 Nitrofurantoin Sr (Bid) 100 Mg Capsule PO 100 mg BID CHRIS Administration Polyethylene Glycol 17 gm 09/29/21 21:00 09/30/21 20:40 Polyethylene Glycol 3350 Pkt 17 Gm PO 17 gm BEDTIME CHRIS Administration Quetiapine Fumarate 50 mg 09/29/21 21:00 09/30/21 20:40 Quetiapine 25 Mg Tablet PO 50 mg BEDTIME@ CHRIS Administration Sertraline HCl 100 mg 09/29/21 21:00 09/30/21 20:40 Sertraline 100 Mg Tablet PO 100 mg DAILY@21 CHRIS Administration PFSH NPU PFSH: Medical History Acute on chronic congestive heart failure Acute urinary retention Atherosclerotic heart disease of [place] coronary artery without angina pectoris Benign essential hypertension with target blood pressure below 140/90 CAD (coronary artery disease) Chronic constipation Chronic knee pain Chronic neck and back pain Chronic prescription opiate use Chronic prescription opiate use Chronic right hip pain 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 Diastolic heart failure DVT (deep venous thrombosis) Dyslipidemia Encounter for long-term opiate analgesic use Generalized anxiety disorder Gram-positive bacteremia 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 History of DVT (deep vein thrombosis) Hx of cervical spinal arthrodesis Hypertension Insomnia Intervertebral disc disorder with radiculopathy of lumbosacral region Lower abdominal pain Lumbar disc disease Lumbar spondylosis Lumbar stenosis with neurogenic claudication Major depressive disorder, recurrent severe without psychotic features Pain, joint, hand, right Pain, joint, shoulder, right Peripheral vascular disease Radial head fracture SBO (small bowel obstruction) Scoliosis of lumbar spine Skin tear Sleep apnea, unspecified SOB (shortness of breath) Uncircumcised male Unspecified dementia without behavioral disturbance Urinary retention Surgical History History of cervical spinal surgery 1979 [facility] C6-C7 laminectomy/fusion/fixation History of heart artery stent (~2006) History of heart bypass surgery (~2007) History of hernia surgery 4x History of knee surgery Right History of lumbar surgery [facility]. L3-L4, L4-L5, L5-S1 decompression History of uvulopalatopharyngoplasty Hx of CABG Hx of cholecystectomy Family History Father , at age 63 Diabetes Mother , at age 92 Colon cancer Hypertension Social History Smoking and tobacco status: former smoker Second hand smoke exposure: No Smoking risk assessment/counseling performed?: No Alcohol intake: never Desire information about alcohol rehabilitation?: No Counseling given: No Desire information about substance/drug rehabilitation?: No Counseling given: No Adopted: No Caregiver/support person: Yes Lives independently: No Household members: significant other Marital status: Number of children: 5 service: No Current occupational status: disabled History of recent travel: No Current gender identity: Male Mental Status Exam MSE Comments: This is a normal weight elderly white male with hospital gown on with adequate eye contact and limited grooming.? No abnormal movements but he was not noted ambulating Cooperative with exam in no acute distress.? Speech was mostly normal rate and volume.? Mood described as fine, affect congruent.? Thought process mostly organized.? I patient denied suicidal or homicidal ideation, no delusions reported or noted, no clear auditory or hallucinations.? Attention and concentration were intact and memory was limited but none were formally tested.? And oriented x3.? Insight and judgment are limited, impulse control appears fair. Vitals/I&O/Wt Last Vital Signs Temp 98.3 F 10/01/21 11:09 Pulse 75 10/01/21 11:09 Resp 16 03/25/22 11:09 BP 158/83 10/01/21 11:09 Pulse Ox 95 10/01/21 11:09 09/30/21 10/01/21 10/01/21 22:59 06:59 14:59 Intake Total 470 / 7231.079 3312 / 3108.333 360 / 360 Output Total 600 / 675 600 / 1275 Balance -130 / 993.333 840 / 1833.333 360 / 360 Weight last 48 hrs Weight 84.867 kg Weight 83.325 kg Weight 90.718 kg Weight 90.718 kg Data NPU : 09/30/21 05:23 09/30/21 05:23 Micro: Microbiology 09/29/21 16:05 Urine Culture - Final Urine,Clean Catch Escherichia coli Microbiology 09/29/21 16:05 Urine,Clean Catch Urine Culture - Final Escherichia coli A&P Assessment and plan (1) Delusional disorder: Status: Acute (2) Avascular necrosis of bone of right hip: Status: Acute (3) Chronic knee pain: Status: Acute (4) Chronic right hip pain: Status: Acute (5) Postlaminectomy syndrome of lumbar region: Status: Acute (6) DDD (degenerative disc disease), lumbosacral: Status: Acute (7) Degenerative joint disease of right knee: Status: Acute (8) Urinary tract infection: Status: Acute (9) Insomnia: Status: Chronic (10) Encounter for long-term opiate analgesic use: Status: Acute (11) Chronic neck and back pain: Status: Acute (12) Urinary retention: Status: Acute (13) Bacteriuria: Status: Acute (14) Acute urinary retention: Status: Acute (15) Dementia: Status: Chronic (16) Delirium: Status: Acute (17) History of depression: Status: Acute (18) History of anxiety: Status: Acute Plan This is an 81-year-old white male with some history of anxiety and depression during his life but no major problems or psychotic illness who presented with some confusion and possible delusion versus delirium getting a medical work-up. 1. Continue current medication. Could consider antipsychotic either 2.5 Zyprexa or Haldol 2.5 mg nightly. 2. At this point he seems less clear than 15 months ago but at his age not surprising especially with his medical conditions but it seems like this could be delirium more so than a delusional condition given his history. 3. We will continue to follow and monitor improvement with treatment of UTI. Attestations NPU Medical Necessity Statement*: N/A. Please see primary team note for medical necessity. We will evaluate for any need for inpatient geriatric psychiatric services. 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 [facility] Fwd Diagnoses Delusional disorder F22 Avascular necrosis of bone of right hip M87.051 Chronic knee pain M25.569; G89.29 Chronic right hip pain M25.551; G89.29 Postlaminectomy syndrome of lumbar region M96.1 DDD (degenerative disc disease), lumbosacral M51.37 Degenerative joint disease of right knee M17.11 Urinary tract infection N39.0 Insomnia G47.00 Encounter for long-term opiate analgesic use Z79.891 Chronic neck and back pain M54.2; M54.9; G89.29 Urinary retention R33.9 Bacteriuria R82.71 Acute urinary retention R33.8 Dementia F03.90 Delirium R41.0 History of depression Z86.59 History of anxiety Z86.59
[2021-10-01] MEDS: aspirin 81 mg EC Tablet PO (21:42)
[2021-10-01] MEDS: quetiapine 25 mg Tablet 50 MG PO (21:42)
[2021-10-01] MEDS: sertraline 100 mg Tablet PO (21:42)
[2021-10-01] MEDS: polyethylene glycol 3350 Pkt 17 gm PO (21:43)
[2021-10-01] MEDS: cefTRIAXone 1,000 MG in sodium chloride 0.9% (plus) 50 ML 100 MG IV (21:43)
[2021-10-02] VITALS (11 sets, daily range): BP systolic 106–155; BP diastolic 48–80; PULSE 62–78; RESP 16–18; TEMP 36.6–37.5; O2SAT 91–96
--- NOTE | 2021-10-02 05:26 | PC.NURSE ---
SHIFT SUMMARY Has rested well tonight. Has c/o right hip pain and has received po Hydrocodone for this. Voiding well per urinal.
[2021-10-02] MEDS: HYDROcodone-acetaminophen 5-325 mg Tablet 1 TAB PO ×5 (05:29→22:42)
[2021-10-02] MEDS: budesonide 0.5 mg/2 mL Neb INHALATION (07:51)
[2021-10-02] MEDS: albuterol 8 gm MDI 2 PUFF INHALATION (07:52)
--- NOTE | 2021-10-02 09:10 | PC.SOCIAL ---
IM explained and copy provided. Pt verbalized understanding by nodding head. No questions voiced.
--- NOTE | 2021-10-02 09:17 | P.PN_ITS ---
Subjective Subjective: No acute worsening of pain, he has been staying in his bed for most of the time, watching television Unremarkable echo and perfusion scan of the heart Looks very dry today encouraged him to have more p.o. fluids Vitals/I&O/Wt Last Vital Signs Temp 97.8 F 10/02/21 08:00 Pulse 71 10/02/21 08:00 Resp 16 10/02/21 08:00 BP 138/75 10/02/21 08:00 Pulse Ox 92 10/02/21 08:00 10/01/21 10/02/21 10/02/21 22:59 06:59 14:59 Intake Total 840 / 1200 240 / 1440 Output Total 1025 / 1025 575 / 1600 Balance -185 / 175 -335 / -160 Weight last 48 hrs Weight 84.867 kg Physical Exam Narrative: Patient was resting comfortably in his bed Patient is laying comfortably in his bed Saturating well on room S1, S2 regular Abdomen soft Clinical signs of dehydration No signs of vascular compromise of lower extremities Trace edema Bedbugs, unkept appearance Onychomycosis Skin sloughing noticed of lower extremities Data : 09/30/21 05:23 09/30/21 05:23 Micro: Microbiology 09/29/21 16:05 Urine Culture - Final Urine,Clean Catch Escherichia coli A&P Assessment and plan (1) History of anxiety: Status: Acute (2) History of depression: Status: Acute (3) Delirium: Status: Acute (4) Avascular necrosis of bone of right hip: Status: Acute (5) Chronic knee pain: Status: Acute (6) Chronic right hip pain: Status: Acute (7) Avascular necrosis of hip: Status: Acute Plan Avascular necrosis of right hip Dr. Anderson will see him likely on Monday We will keep him until his surgical intervention Not a good candidate to be discharged to a rehab at this point because of his excruciating pain on ambulation Continue opioids with bowel regimen Preop work-up unremarkable Acute delirium related to UTI, continue ceftriaxone Appreciate neuropsych evaluation No acute exacerbation Full code Consistent carb diet Continue sliding-scale We will change antipsychotics Attestations Medical Necessity Statement*: Continue medical [id number] continue medical management Time Spent in Patient Care: 20 Coding Level of Care Code 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
[2021-10-02] MEDS: metoprolol tartrate 25 mg Tablet PO ×2 (09:31→20:39)
[2021-10-02] MEDS: hyDRALAzine 10 mg Tablet PO ×3 (09:32→20:36)
[2021-10-02] MEDS: enoxaparin 40 mg/0.4 mL Syringe SUBCUT (09:32)
[2021-10-02] MEDS: nitrofurantoin SR (BID) 100 mg Capsule PO ×2 (09:32→17:30)
[2021-10-02] MEDS: baclofen 10 mg Tablet PO ×3 (09:32→20:36)
[2021-10-02] MEDS: sennosides-docusate Tablet 1 TAB PO ×2 (09:32→17:30)
[2021-10-02] MEDS: amlodipine 10 mg Tablet PO (09:32)
--- NOTE | 2021-10-02 17:47 | P.NPUPN_ITS ---
Subjective NPU Subjective: Patient presents today reporting that he is having pain in his right hip and even in his knee and spent most of the time talking about his significant other and the concerns for safety that had existed at home. He denied any significant issues emotionally. He reports he is eating okay and sl eeping decent when his pain is under control. He denied any anxiety or depression of note. Mental Status Exam MSE Comments: This is a normal weight elderly white male with hospital gown on with adequate eye contact and limited grooming.? No abnormal movements but he was not noted ambulating Cooperative with exam in no acute distress.? Speech was mostly normal rate and volume.? Mood described as okay, affect congruent.? Thought process mostly organized.? I patient denied suicidal or homicidal ideation, no delusions reported or noted, no clear auditory or hallucinations.? Attention and concentration were intact and memory was limited but none were formally tested.? And oriented x3.? Insight and judgment are limited, impulse control appears fair. Vitals/I&O/Wt Last Vital Signs Temp 99.4 F 10/02/21 20:00 Pulse 64 10/02/21 20:00 Resp 17 10/02/21 20:00 BP 155/78 10/02/21 20:00 Pulse Ox 93 10/02/21 20:00 10/02/21 10/02/21 10/02/21 06:59 14:59 22:59 Intake Total 240 / 1490 360 / 360 Output Total 575 / 1600 550 / 550 Balance -335 / -110 -190 / -190 Weight last 48 hrs Weight 84.867 kg Data NPU : 09/30/21 05:23 09/30/21 05:23 A&P Assessment and plan (1) History of anxiety: Status: Acute (2) History of depression: Status: Acute (3) Delirium: Status: Acute (4) Avascular necrosis of bone of right hip: Status: Acute (5) Chronic knee pain: Status: Acute (6) Chronic right hip pain: Status: Acute (7) Postlaminectomy syndrome of lumbar region: Status: Acute (8) DDD (degenerative disc disease), lumbosacral: Status: Acute (9) Degenerative joint disease of right knee: Status: Acute (10) Avascular necrosis of hip: Status: Acute (11) Urinary tract infection: Status: Acute (12) Urinary retention: Status: Acute (13) Bacteriuria: Status: Acute (14) Acute urinary retention: Status: Acute (15) Dementia: Status: Chronic Plan This is an 81-year-old white male with some history of anxiety and depression during his life but no major problems or psychotic illness who presented with some confusion and possible delusion versus delirium getting a medical work-up. 1.? Continue current medication.? Could consider antipsychotic either 2.5 Zyprexa or Haldol 2.5 mg nightly. 2.? At this point he seems less clear than 15 months ago but at his age not surprising especially with his medical conditions but it appears his confusion was a mixture of mild dementia and delirium more so than a delusional condition given his history. He should continue to improve as his UTI resolves. 3.? We will sign off for now please reconsult if needed any assistance with evaluation for placement etc. Attestations NPU Medical Necessity Statement*: N/A.? Please see primary team note for medical necessity.? Currently no need for inpatient geriatric psychiatric services. 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
[2021-10-02] MEDS: cefTRIAXone 1,000 MG in sodium chloride 0.9% (plus) 50 ML 100 MG IV (20:35)
[2021-10-02] MEDS: sertraline 100 mg Tablet PO (20:36)
[2021-10-02] MEDS: aspirin 81 mg EC Tablet PO (20:36)
[2021-10-02] MEDS: OLANZapine 5 mg TABLET 2.5 MG PO (20:36)
[2021-10-02] MEDS: polyethylene glycol 3350 Pkt 17 gm PO (20:38)
[2021-10-03] VITALS (10 sets, daily range): BP systolic 122–161; BP diastolic 62–87; PULSE 61–82; RESP 16–20; TEMP 36.6–37.3; O2SAT 93–95
[2021-10-03] MEDS: HYDROcodone-acetaminophen 5-325 mg Tablet 1 TAB PO ×4 (03:02→20:30)
[2021-10-03] MEDS: albuterol 8 gm MDI 2 PUFF INHALATION ×2 (07:17→16:41)
[2021-10-03] MEDS: budesonide 0.5 mg/2 mL Neb INHALATION (07:17)
[2021-10-03] MEDS: sennosides-docusate Tablet 1 TAB PO ×2 (07:39→16:31)
[2021-10-03] MEDS: amlodipine 10 mg Tablet PO (07:39)
[2021-10-03] MEDS: hyDRALAzine 10 mg Tablet PO ×3 (07:40→21:25)
[2021-10-03] MEDS: metoprolol tartrate 25 mg Tablet PO ×2 (07:40→21:29)
[2021-10-03] MEDS: nitrofurantoin SR (BID) 100 mg Capsule PO ×2 (07:40→16:31)
[2021-10-03] MEDS: baclofen 10 mg Tablet PO ×3 (07:40→21:45)
[2021-10-03] MEDS: enoxaparin 40 mg/0.4 mL Syringe SUBCUT (08:52)
--- NOTE | 2021-10-03 10:34 | P.PN_ITS ---
Subjective Subjective: Patient stating that his right hip pain is 8 out of 10 today He was eating breakfast Watching television no Overnight events Vitals/I&O/Wt Last Vital Signs Temp 98.0 F 10/03/21 08:00 Pulse 82 10/03/21 08:00 Resp 16 10/03/21 08:00 BP 129/62 10/03/21 08:00 Pulse Ox 93 10/03/21 08:00 10/02/21 10/03/21 10/03/21 22:59 06:59 14:59 Intake Total 650 / 650 360 / 1010 480 / 480 Output Total 700 / 700 875 / 1575 Balance -50 / -50 -515 / -565 480 / 480 Physical Exam Narrative: Patient was watching television 8 out of 10 right hip pain S1, S2 No audible stridor or wheezing Nonfocal neuro exam No signs of vascular compromise Abdomen is soft Pleasant and cooperative during my evaluation Data : 09/30/21 05:23 09/30/21 05:23 A&P Assessment and plan (1) History of anxiety: Status: Acute (2) History of depression: Status: Acute (3) Delirium: Status: Acute (4) Avascular necrosis of bone of right hip: Status: Acute (5) Chronic knee pain: Status: Acute Plan Right hip pain related to avascular necrosis Plan to consult Dr. Anderson on Monday We will keep him n.p.o. 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
[2021-10-03 13:09] LABS: INR 1.04 (0.8-1.2)
[2021-10-03 13:10] LABS: Fibrinogen 461 mg/dL (174-498); Partial Thromboplastin Time 33.1 SECONDS (23.9-36.7)
[2021-10-03 13:43] LABS: Platelet Count 264 10^3/cmm (130-400)
[2021-10-03] MEDS: OLANZapine 5 mg TABLET 2.5 MG PO (21:24)
[2021-10-03] MEDS: aspirin 81 mg EC Tablet PO (21:25)
[2021-10-03] MEDS: cefTRIAXone 1,000 MG in sodium chloride 0.9% (plus) 50 ML 100 MG IV (21:32)
[2021-10-03] MEDS: polyethylene glycol 3350 Pkt 17 gm PO (21:33)
[2021-10-03] MEDS: sertraline 100 mg Tablet PO (21:44)
[2021-10-04] VITALS (8 sets, daily range): BP systolic 118–173; BP diastolic 51–79; PULSE 50–89; RESP 15–18; TEMP 36.6–37.4; O2SAT 93–96
[2021-10-04] MEDS: HYDROcodone-acetaminophen 5-325 mg Tablet 1 TAB PO (00:14)
--- NOTE | 2021-10-04 05:41 | PC.NURSE ---
SHIFT SUMMARY Has done well tonight. NPO after midnight except for sips, ice chips & meds. Says he is hoping he can have surgery today. Is ready for right hip to feel better. Says pain in hip is increased with movement. Is receiving po Hydrocodone for pain. Pleasant and cooperative.
[2021-10-04 06:07] LABS: Basophils # 0.1 10^3/uL (0.0-0.1); Basophils % 0.8 %; Eosinophils # 0.9 10^3/uL (0.0-0.8); Eosinophils % 9.4 %; Hematocrit 40.2 % (42.0-52.0); Hemoglobin 12.4 g/dL (11.7-16.6); Lymphocytes # 2.3 10^3/uL (0.8-4.8); Lymphocytes % 24.4 %; Mean Corpuscular HGB Conc 30.8 g/dL (30.0-36.0); Mean Corpuscular Hemoglobin 27.7 pg (28.0-34.0); Mean Corpuscular Volume 89.7 fl (80-94); Mean Platelet Volume 10.2 fL (7.4-10.4); Monocytes # 0.7 10^3/uL (0.2-0.9); Monocytes % 7.4 %; Neutrophils % 57.8 %; Nucleated Red Blood Cells % 0 %; Platelet Count 263 10^3/cmm (130-400); Red Blood Count 4.48 10^6/uL (4.1-5.3); Red Cell Distribution Width 16.7 % (12.1-15.1); White Blood Count 9.5 10^3/uL (4.0-10.0)
[2021-10-04 06:33] LABS: Blood Urea Nitrogen 17 mg/dL (8-23); Carbon Dioxide 24 mmol/L (22-29); Chloride 105 mmol/L (98-107); Glucose 93 mg/dL (65-115); Osmolality Calculated 283 mOsm/kg (285-295); Sodium 136 mmol/L (136-145)
[2021-10-04] MEDS: metoprolol tartrate 25 mg Tablet PO ×2 (09:13→21:18)
[2021-10-04] MEDS: amlodipine 10 mg Tablet PO (09:13)
[2021-10-04] MEDS: baclofen 10 mg Tablet PO ×3 (09:13→21:18)
[2021-10-04] MEDS: sennosides-docusate Tablet 1 TAB PO ×2 (09:13→16:33)
[2021-10-04] MEDS: hyDRALAzine 10 mg Tablet PO ×3 (09:13→21:18)
[2021-10-04] MEDS: nitrofurantoin SR (BID) 100 mg Capsule PO ×2 (09:13→16:33)
[2021-10-04] MEDS: enoxaparin 40 mg/0.4 mL Syringe SUBCUT (09:16)
--- NOTE | 2021-10-04 09:54 | PM.CONSULT ---
Providers/Reason For Consult Consulting Physician/Specialty*: Stephania Anderson MD Reason for Consult*: Severe right hip pain secondary to avascular necrosis Requesting Physician: Vito Bruner MD Attending Physician: Moody Bruner MD Primary Care Provider: CLAYTON ObandoP-C History of Present Illness History of Present Illness Anurag Rios is a 81 year old male who is known to me as an outpatient. I last saw him on June 08, 2021 at which time he was complaining of increased right hip pain. X-rays demonstrated a leg length discrepancy and significant collapse within the femoral head of the right hip secondary to avascular necrosis. The patient was due to see me in my office on September 29, 2021, but rather than be seen in the office, he was admitted to the hospital through the emergency department. At that time, the patient was quite confused. According to admission notes, the patient had several stories at the time of admission. He stated he had not eaten anything for the last few days, and he was unable to take any medications. 911 was called and the patient was brought to the emergency department for excruciating pain in his right hip. He lives with his life partner , and the patient noted that at the time of admission, he thought his was letting people and at nighttime. Also by report, the patient has been very aggressive and verbally abusive and there was even concern regarding threatening harm to his with a gun. According to the , she was offering food and water, but he refused. The patient state stated he had not eaten. Additionally, Dr. Park was to perform cardiac stress test as a preop work-up for right hip replacement. The patient was admitted secondary to this confusion and a urinary tract infection. Electrocardiogram was performed by Dr. Park which demonstrated sinus rhythm with occasional ventricular premature complexes as well as an incomplete right bundle shasha block and possible left atrial enlargement. The incomplete bundle branch block was new and there was some ST wave deviation which had not been previously present. Electrocardiogram demonstrated an EF of 55 to 60% with grade 1 diastolic dysfunction. There were mitral valve annular calcification visualized and a trace of mitral valve regurgitation as well as mild tricuspid regurgitation. There was no significant change in the echocardiogram when compared with September 2019. Additional stress testing performed by Dr. Park demonstrated no ischemic changes with induced ventricular arrhythmia. There also was no chest pain. Normal blood pressure and heart rate response. Apparently, the patient was planning to see me on the , the day of his admission for further evaluation regarding total hip arthroplasty. On the day of admission, the patient was found to have significant UTI with positive nitrites, 2+ leukocyte esterase, 55-80 white blood cells associated with 0-4 squamous cells and 4+ bacteria. He has been treated for this during his hospitalization. Review of Systems Const: Denies: fever(s) Eyes: Denies: change in vision or photophobia ENMT: Denies: throat pain or enlarged tonsils Card: Reports: dyspnea on exertion; Denies: chest pain Resp: Reports: dyspnea GI: Denies: abdominal pain : Denies: flank pain Musc: Reports: back pain, extremity pain, joint pain, joint stiffness, limited range of motion and muscle weakness; Denies: joint warmth Skin/Breast: Denies: rash Neuro: Denies: headache(s) Psych: Denies: anxiety Endo: Denies: polyuria Jm/Lymph: Denies: easy bruising All/Imm: Denies: urticaria or acute wheezing Medications/Allergies Home Medications Medication Instructions Recorded Confirmed Last Taken Type albuterol sulfate 90 mcg/actuation 2 puff INHALATION QID PRN #8.5 gm 08/26/21 09/29/21 Unknown Rx aerosol inhaler (ProAir HFA) baclofen 10 mg tablet 10 mg PO TID #90 tab 08/26/21 09/29/21 09/26/21 Rx Doans Pill For Kidney 1 tab PO BID 09/29/21 09/29/21 Unknown History apixaban 5 mg tablet (Eliquis) 5 mg PO BID@09/29/21 09/29/21 Unknown History aspirin 325 mg tablet 325 mg PO BEDTIME 09/29/21 09/29/21 09/26/21 History budesonide 0.5 mg/2 mL suspension 0.5 mg INHALATION BID PRN 09/29/21 09/29/21 Unknown History for nebulization (Pulmicort) diphenhydramine 25 2 tab PO BEDTIME 09/29/21 09/29/21 Unknown History mg-acetaminophen 500 mg tablet (Tylenol PM Extra Strength) furosemide 40 mg tablet (Lasix) 40 mg PO DAILY PRN 09/29/21 09/29/21 Unknown History ibuprofen 200 mg tablet 200 mg PO BEDTIME 09/29/21 09/29/21 Unknown History lubiprostone 24 mcg capsule 24 mcg PO BID@09/29/21 09/29/21 Unknown History (Amitiza) melatonin 3 mg tablet 6 mg PO BEDTIME 09/29/21 09/29/21 Unknown History metoprolol tartrate 25 mg tablet 25 mg PO BID@,09/29/21 09/29/21 09/26/21 History nitroglycerin 0.4 mg sublingual 0.4 mg SUBLINGUAL Q5M PRN 09/29/21 09/29/21 Unknown History tablet (Nitrostat) polyethylene glycol 3350 17 gram 17 g PO BEDTIME 09/29/21 09/29/21 Unknown History oral powder packet (Miralax) quetiapine 50 mg tablet (Seroquel) 50 mg PO BEDTIME@09/29/21 09/29/21 09/26/21 History sertraline 100 mg tablet 100 mg PO DAILY@09/29/21 09/29/21 Unknown History triamcinolone acetonide 0.1 % 1 applic TOPICAL BID PRN 09/29/21 09/29/21 Unknown History topical cream Allergies Allergy/AdvReac Type Severity Reaction Status Date / Time hydromorphone Allergy hives Verified 09/29/21 16:51 Current Medications Generic Name Dose Route Start Last Admin Trade Name Freq PRN Reason Stop Dose Admin Hydrocodone Bitart/Acetaminophen 1 tab 10/03/21 22:42 10/04/21 00:14 Hydrocodone-Acetaminophen 5-325 Mg Tablet PO 1 tab Q4H PRN Administration MODERATE PAIN Albuterol Sulfate 2 puff 09/29/21 20:40 10/03/21 16:41 Albuterol 8 Gm Mdi INHALATION 2 puff QID.RESPIRATORY PRN Administration Shortness Of Breath Amlodipine Besylate 10 mg 09/30/21 08:00 10/04/21 09:13 Amlodipine 10 Mg Tablet PO 10 mg DAILY CRHIS Administration Aspirin 81 mg 09/29/21 21:00 10/03/21 21:25 Aspirin 81 Mg Ec Tablet PO 81 mg BEDTIME CHRIS Administration Baclofen 10 mg 09/29/21 21:00 10/04/21 09:13 Baclofen 10 Mg Tablet PO 10 mg TID CHRIS Administration Budesonide 0.5 mg 09/29/21 20:40 10/03/21 07:17 Budesonide 0.5 Mg/2 Ml Neb INHALATION 0.5 mg BID.RESPIRATORY PRN Administration unknown Enoxaparin Sodium 40 mg 10/01/21 10:00 10/04/21 09:16 Enoxaparin 40 Mg/0.4 Ml Syringe SUBCUT 40 mg Q24H CHRIS Administration Hydralazine HCl 10 mg 09/30/21 09:00 10/04/21 09:13 Hydralazine 10 Mg Tablet PO 10 mg TID CHRIS Administration Ceftriaxone Sodium 1,000 mg/ 50 mls @ 100 mls/hr 09/29/21 21:00 10/03/21 21:32 Sodium Chloride IV 100 mls/hr Q24H CHRIS Administration Protocol Metoprolol Tartrate 25 mg 09/29/21 21:00 10/04/21 09:13 Metoprolol Tartrate 25 Mg Tablet PO 25 mg BID@08,21 CHRIS Administration Nitrofurantoin Macrocrystals 100 mg 09/29/21 20:40 10/04/21 09:13 Nitrofurantoin Sr (Bid) 100 Mg Capsule PO 100 mg BID CHRIS Administration Olanzapine 2.5 mg 10/02/21 21:00 10/03/21 21:24 Olanzapine 5 Mg Tablet PO 2.5 mg BEDTIME CHRIS Administration Polyethylene Glycol 17 gm 09/29/21 21:00 10/03/21 21:33 Polyethylene Glycol 3350 Pkt 17 Gm PO 17 gm BEDTIME CHRIS Administration Senna/Docusate Sodium 1 tab 10/01/21 18:00 10/04/21 09:13 Sennosides-Docusate Tablet PO 1 tab BID CHRIS Administration Sertraline HCl 100 mg 09/29/21 21:00 10/03/21 21:44 Sertraline 100 Mg Tablet PO 100 mg DAILY@21 CHRIS Administration PFSH Acute PFSH: Medical History (Updated 10/04/21 @ 12:20 by Moody Bruner MD) Acute on chronic congestive heart failure Acute urinary retention Atherosclerotic heart disease of [place] coronary artery without angina pectoris Benign essential hypertension with target blood pressure below 140/90 CAD (coronary artery disease) Chronic constipation Chronic knee pain Chronic neck and back pain Chronic prescription opiate use Chronic prescription opiate use Chronic right hip pain 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 Diastolic heart failure DVT (deep venous thrombosis) Dyslipidemia Encounter for long-term opiate analgesic use Encounter for narcotic contract discussion Generalized anxiety disorder Gram-positive bacteremia 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 History of DVT (deep vein thrombosis) Hx of cervical spinal arthrodesis Hypertension Insomnia Intervertebral disc disorder with radiculopathy of lumbosacral region Lower abdominal pain Lumbar disc disease Lumbar spondylosis Lumbar stenosis with neurogenic claudication Major depressive disorder, recurrent severe without psychotic features Pain, joint, hand, right Pain, joint, shoulder, right Peripheral vascular disease Radial head fracture SBO (small bowel obstruction) Scoliosis of lumbar spine Skin tear Sleep apnea, unspecified SOB (shortness of breath) Uncircumcised male Unspecified dementia without behavioral disturbance Urinary retention Surgical History (Updated 10/04/21 @ 12:20 by Moody Bruner MD) History of cervical spinal surgery 1979 [facility] C6-C7 laminectomy/fusion/fixation History of heart artery stent (~2006) History of heart bypass surgery (~2007) History of hernia surgery 4x History of knee surgery Right History of lumbar surgery [facility]. L3-L4, L4-L5, L5-S1 decompression History of uvulopalatopharyngoplasty Hx of CABG Hx of CABG Hx of cholecystectomy Family History Father , at age 63 Diabetes Mother , at age 92 Colon cancer Hypertension Social History Smoking and tobacco status: former smoker Second hand smoke exposure: No Smoking risk assessment/counseling performed?: No Alcohol intake: never Desire information about alcohol rehabilitation?: No Counseling given: No Desire information about substance/drug rehabilitation?: No Counseling given: No Adopted: No Caregiver/support person: Yes Lives independently: No Household members: significant other Marital status: Number of children: 5 service: No Current occupational status: disabled History of recent travel: No Current gender identity: Male Dietary Habits: Current diet type/program: regular Caffeine: Yes Caffeine intake frequency: carbonated beverages, coffee and tea Exercise: What type of physical activity do you participate in?: walking Safety: Seatbelt use: always Helmet use: No Drive intoxicated or ride with intoxicated bulk driver?: never Vitals/I&O/Wt Last Vital Signs Temp 97.9 F 10/04/21 08:00 Pulse 89 10/04/21 09:25 Resp 18 10/04/21 09:25 BP 156/78 10/04/21 08:00 Pulse Ox 96 10/04/21 09:25 10/03/21 10/04/21 10/04/21 22:59 06:59 14:59 Intake Total 240 / 1080 480 / 480 Output Total 425 / 425 850 / 1275 Balance -185 / 655 -850 / -195 480 / 480 Physical Exam Const: COMMON NORMALS: no acute distress, average body habitus, patient oriented x3 and alert GENERAL APPEARANCE: cooperative and comfortable ORIENTATION/CONSCIOUSNESS: Yes awake HENMT: COMMON NORMALS: normocephalic and atraumatic HEAD & SCALP: normocephalic and atraumatic Eye: GENERAL EYE: appearance normal, both eyes and all related structures Chest: COMMONS NORMALS: normal inspection of the chest Resp: COMMON NORMALS: normal respiratory effort EFFORT & INSPECTION: Yes able to speak in complete sentences and Yes symmetric chest movement Extremity: NARRATIVE EXTREMITY EXAM: In May 2021, when the patient was seen in my office, he was using a wheelchair as he was unable to ambulate on the right hip. RIGHT LOWER EXTREMITY: Yes hip joint (Prior hip evaluation reviewed from May. Motions from prior eval) Right hip: Yes ROM (Flexion 80, external rotation fixed 20 degrees, adduction 0, abduction 20) and Yes neurovascular exam (Intact distally) Neuro: COMMON NORMALS: patient oriented x3 SENSORIUM/ORIENTATION: Yes alert Psych: ATTITUDE: Yes engaged ATTENTION/CONCENTRATION: Yes attention grossly intact Skin: COMMON NORMALS: no rashes or lesions noted GENERAL SKIN EXAM: no rashes or lesions noted Data : 10/04/21 05:50 10/04/21 05:50 Xray Ortho: My impression: X-rays were obtained at the time of the patient's admission on September 29, 2021. These are personally interpreted by me and compared with previous imaging studies obtained in my office on June 08, 2021. Imaging at the time of admission demonstrates progression of the patient's avascular necrosis changes with further collapse of the avascular piece particularly visualized on the lateral. There is incongruity of the hip joint. There also appears to be fracturing of the inferior femoral head. Findings are consistent with acute on chronic avascular necrosis changes with femoral head collapse. A&P Assessment and plan (1) Avascular necrosis of bone of right hip: Comparing imaging studies from the patient's admission on September 29, 2021 with previous imaging studies from June 08, 2021, there is some possible progression of the avascular changes. The patient was admitted with a UTI and inability to move or ambulate. His hip pain was rated at an 8 of 10. He has had a complete medical work-up while here on this admission, his urinary tract infection has been treated. Mental status has been evaluated as well, and the patient continues to accuse his significant other of negative actions. I discussed the case with Dr. Erickson from psychiatry, and he has seen the patient a couple times. I asked him to evaluate him for competency to sign a surgical procedure consent. He spoke with the significant other, and she states the patient has been like this for the past approximately 5 years. She is his medical power of corporate associate attorney. Dr. Erickson will revisit with the patient and make sure that this is the direction he would like to go, although, from my outpatient visit previously where she was present, I do believe that this is the process he wants to take. Should we be able to arrange all the pieces, we will plan for surgical intervention tomorrow. The patient will require right total hip arthroplasty. This will be scheduled for him. 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
--- NOTE | 2021-10-04 11:45 | PC.SOCIAL ---
IMM Update pg 2 of IMM updated and reviewed w/ patient. Copy provided and copy in chart update.
--- NOTE | 2021-10-04 12:18 | PM.PN ---
Subjective Subjective: Patient was not complaining of any overnight events Appreciate orthopedic recommendations Patient will be kept n.p.o. after midnight Vitals/I&O/Wt Last Vital Signs Temp 98.2 F 10/04/21 11:44 Pulse 63 10/04/21 11:44 Resp 16 10/04/21 11:44 BP 136/77 10/04/21 11:44 Pulse Ox 95 10/04/21 11:44 10/03/21 10/04/21 10/04/21 22:59 06:59 14:59 Intake Total 240 / 1080 480 / 480 Output Total 425 / 425 850 / 1275 Balance -185 / 655 -850 / -195 480 / 480 Physical Exam Narrative: Cooperative and pleasant Nonfocal neuro exam Saturating well on room air S1, S2 Abdomen soft Looks euvolemic No signs of gas compromise of lower extremities Unkept appearance Onychomycosis Bedbugs Data : 10/04/21 05:50 10/04/21 05:50 A&P Assessment and plan (1) History of anxiety: Status: Acute (2) History of depression: Status: Acute (3) Delirium: Status: Acute (4) Avascular necrosis of bone of right hip: Status: Acute (5) Bacteriuria: Status: Acute (6) Hypertension: Status: Chronic Qualifiers: Hypertension type: essential hypertension Qualified Code(s): I10 - Essential (primary) hypertension (7) Sleep apnea, unspecified: Status: Acute Qualifiers: Sleep apnea type: obstructive Qualified Code(s): G47.33 - Obstructive sleep apnea (adult) (pediatric) (8) Major depressive disorder, recurrent severe without psychotic features: Status: Acute (9) UTI (urinary tract infection): Status: Acute Plan Right hip pain, avascular necrosis, n.p.o. after midnight Orthopedic recommendations appreciated Stop aspirin, Lovenox Patient is not on lisinopril, continue metoprolol preop work-up has been completed Coagulation profile unremarkable UTI treated no active encephalopathy, delirium related to UTI improved No active delusional disorder Patient is doing well on as needed Zyprexa overnight Discontinue ceftriaxone, continue Macrobid Opioids,PLus bowel regimen Patient will be discharged to a rehab after his surgery Attestations Medical Necessity Statement*: Surgery tomorrow Time Spent in Patient Care: 30min Coding Level of Care Code Acute Cell Room Supervisor for g Fwd Diagnoses History of anxiety Z86.59 History of depression Z86.59 Delirium R41.0 Avascular necrosis of bone of right hip M87.051 Bacteriuria R82.71 Hypertension I10 Hypertension type: essential hypertension Sleep apnea, unspecified G47.33 Sleep apnea type: obstructive Major depressive disorder, recurrent severe without psychotic features F33.2 UTI (urinary tract infection) N39.0
[2021-10-04 16:19] LABS: Add Urine Microscopic? NO; Charge for UA Resulting for Rev
--- NOTE | 2021-10-04 16:34 | P.NPUPN_ITS ---
Subjective NPU Subjective: Patient presents today continuing to have occasional talk about his significant other bringing someone else into the house. He did this with a somewhat laissez-faire attitude although he would challenge this global technical writer about how you feel if this happened to you. He reports that the reason why he continued in the relationship was that he did have other options and he denied her doing any truly needing her malice laden behavior against him. And he acknowledged that she is is file. That is documented in the chart. Spoke with Pat and she reports that he has made comments like those for at least 5-6+ years and she is basically ignore them because they do not turn into any kind of major arguments. That paranoia about there being another person or her doing something with his money has been around since his mid 70s. He was able to articulate the what where he lives in a house of the procedure and was clear in his desire to have the procedure done. Pat also was clear on how long he has waited to have this procedure and is he reports in the past condition of his hip he is unable to walk. He was able to articulate that he was going to a [facility] afterwards for convalescence and his recovery and that it would be a tough road to get back to walking again that he is prepared for. Mental Status Exam MSE Comments: This is a normal weight elderly white male with hospital gown on with adequate eye contact and limited grooming.? No abnormal movements but he was not noted ambulating. Cooperative with exam in no acute distress.? Speech was mostly normal rate and volume.? Mood described as okay, affect congruent.? Thought process mostly organized.? Thought content: Patient denied suicidal or homicidal ideation, no delusions reported or noted, except this apparently longstanding delusion that occasionally his significant other for many many years has not brought another person into the home. No auditory or visual hallucinations reported Attention and concentration were intact and memory was limited but none were formally tested.? He was alert and oriented x3.? Insight and judgment are limited, impulse control appears fair. Vitals/I&O/Wt Last Vital Signs Temp 98.2 F 10/04/21 15:35 Pulse 73 10/04/21 15:35 Resp 18 10/04/21 15:35 BP 173/66 10/04/21 15:35 Pulse Ox 95 10/04/21 15:35 10/04/21 10/04/21 06:59 14:59 Intake Total 970 / 970 Output Total 850 / 1275 250 / 250 Balance -850 / -195 720 / 720 Physical Exam Urinary Catheter Management: Miranda: Cath Placed During This Visit: yes Reason for Continuing Indwelling Catheter: Perioperative Use in Selected Surgeries Urinary Catheter Date of Insertion: 10/04/21 Urinary Catheter Time of Insertion: 16:16 Data NPU : 10/06/21 04:47 10/06/21 04:47 A&P Assessment and plan (1) UTI (urinary tract infection): Status: Acute (2) History of anxiety: Status: Acute (3) History of depression: Status: Acute (4) Delirium: Status: Acute (5) Delusional disorder: Status: Acute (6) Avascular necrosis of bone of right hip: Status: Acute (7) Dementia: Status: Chronic Plan This is an 81-year-old white male with some history of anxiety and depression during his life but no major problems or psychotic illness who presented with some confusion and possible delusion versus delirium getting a medical work-up. 1.? Continue current medication.? Could consider antipsychotic either 2.5 Zyprexa or Haldol 2.5 mg nightly. 2.? UTI appears to be resolving. Everything indicates from conversation with markos frey and his significant other that these thoughts he has about this person coming into his home or money being taken are part of a fairly circumscribed paranoid versus persecutory delusion that does not prevent him from having a fairly amicable relationship with his longtime partner or prevent him from continuing the relationship with her. She is the POA and is clear that getting this hip surgery was his desire and she plans to support him moving forward with the procedure. And he notwithstanding the circumscribed delusional content is clear about the procedure clear about the risk benefits and alternatives and clearly desires that the procedure move forward i agree with Dr. Castano that the right and ethical approach would be to proceed with him and his long awaited surgery. 3.? We will sign off for now please reconsult if needed any assistance with evaluation for placement etc. Attestations NPU Medical Necessity Statement*: N/A.? Please see primary team note for medical necessity.? Currently no need for inpatient geriatric psychiatric services. 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
[2021-10-04 16:58] LABS: Bilirubin Urine Neg (Negative); Blood Urine Neg (Negative); Glucose Urine UA Norm (Normal); Ketones Urine Negative (Negative); Leukocyte Esterase Urine Negative (Negative); Nitrate Urine Negative (Negative); Protein Urine Neg (Negative); Specific Gravity, Urine 1.015 (1.005-1.030); Urine Appearance Clear (CLEAR); Urine Color Yellow (Yellow); Urobilinogen Urine Norm (Negative); pH Urine 6 (5-7)
--- NOTE | 2021-10-04 18:43 | PC.NURSE ---
Report to Sugey AVILA at this time.
[2021-10-04] MEDS: OLANZapine 5 mg TABLET 2.5 MG PO (21:18)
[2021-10-04] MEDS: sertraline 100 mg Tablet PO (21:18)
[2021-10-04] MEDS: polyethylene glycol 3350 Pkt 17 gm PO (21:18)
[2021-10-05] VITALS (14 sets, daily range): BP systolic 119–176; BP diastolic 66–103; PULSE 53–75; RESP 14–18; TEMP 36.4–37.3; O2SAT 93–98
[2021-10-05] MEDS: hyDRALAzine 10 mg Tablet PO ×2 (09:04→21:38)
[2021-10-05] MEDS: metoprolol tartrate 25 mg Tablet PO ×2 (09:04→21:41)
[2021-10-05] MEDS: nitrofurantoin SR (BID) 100 mg Capsule PO (09:04)
[2021-10-05] MEDS: amlodipine 10 mg Tablet PO (09:04)
[2021-10-05] MEDS: baclofen 10 mg Tablet PO ×2 (09:04→21:38)
[2021-10-05] MEDS: HYDROcodone-acetaminophen 5-325 mg Tablet 1 TAB PO ×2 (09:06→21:37)
--- NOTE | 2021-10-05 11:57 | P.PN_ITS ---
Subjective Subjective: Patient still endorsing right hip pain Scheduled for surgery today He is n.p.o. Bradycardia overnight Vitals/I&O/Wt Last Vital Signs Temp 98.7 F 10/05/21 08:00 Pulse 54 L 10/05/21 08:00 Resp 14 10/05/21 08:00 BP 158/94 10/05/21 08:00 Pulse Ox 93 10/05/21 08:00 10/04/21 10/05/21 10/05/21 22:59 06:59 14:59 Intake Total 237 / 1207 Output Total 550 / 800 1300 / 2100 Balance -313 / 407 -1300 / -893 Physical Exam Narrative: Patient laying in distress because of right hip pain Saturating well on room air Looks euvolemic No vascular compromise of legs Abdomen soft S1, S2 Nonfocal neuro exam patient was pleasant and cooperative Urinary Catheter Management: Miranda: Cath Placed During This Visit: yes Reason for Continuing Indwelling Catheter: Perioperative Use in Selected Surgeries Urinary Catheter Date of Insertion: 10/04/21 Urinary Catheter Time of Insertion: 16:16 Data : 10/04/21 05:50 10/04/21 05:50 A&P Assessment and plan (1) UTI (urinary tract infection): Status: Acute (2) Delirium: Status: Acute (3) Avascular necrosis of bone of right hip: Status: Acute Plan Plan for surgery today He is n.p.o. Start Eliquis after his surgery as well as his diet Delirium no acute decompensation Continue nitrofurantoin for UTI Hold metoprolol for now which she was taking for A. 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
--- NOTE | 2021-10-05 12:59 | PC.NURSE ---
Patient to surgery at this time.
--- NOTE | 2021-10-05 13:19 | P.ANESASSM_ITS ---
Pre-Anesthetic Assessment Height/Weight: Height 1.83 m Weight 84.867 kg Temp Pulse Resp BP Pulse Ox 98.8 F 63 18 157/103 96 10/05/21 13:00 10/05/21 13:00 10/05/21 13:00 10/05/21 13:00 10/05/21 13:00 Preop Diagnosis: Avascular necrosis right hip Operation Date: 10/05/21 13:45 Proposed Procedures p Total Hip Arthroplasty right/ avn right hip with collapse(Right) - Stephania Anderson MD Familial anesthetic complications: None Was Beta Savage taken within 24 hours: N/A (Not taken for bradycardia) Was Clonidine taken within 24 hours: N/A Social No alcohol and No tobacco Exam alert, oriented x 3, clear to auscultation bilaterally and regular rate & rhythm Airway Submandibular: within normal limits Cervical ROM: Other (limited from fusion) Mallampati: Class II Dentition: false Pulmonary Chronic Obstructive Pulmonary Disease and Sleep Apnea CV/HEM Coronary Artery Disease and Deep Vein Thrombosis LV systolic function is normal with EF of 55-60% ?Grade 1 diastolic dysfunction ?Mitral annular calcification is seen. Trace mitral regurgitation ?Mild tricuspid regurgitation ?Compared to prior echocardiogram from 09/27/2019, no significant ?changes are seen Musc/skel Lower Back Pain and Osteoarthritis/DJD Neuropsych Anxiety and Depression Delirium Anesthetic Plan ASA status: 3 Anesthesia: Regional (specify below) (SAB) Risk of > 500 ml blood loss (7ml/kg in children): Yes, adequate IV access and fluids planned Medications/Allergies Home Medications Medication Instructions Recorded Confirmed Last Taken Type albuterol sulfate 90 mcg/actuation 2 puff INHALATION QID PRN #8.5 gm 08/26/21 09/29/21 Unknown Rx aerosol inhaler (ProAir HFA) baclofen 10 mg tablet 10 mg PO TID #90 tab 08/26/21 09/29/21 09/26/21 Rx Doans Pill For Kidney 1 tab PO BID 09/29/21 09/29/21 Unknown History apixaban 5 mg tablet (Eliquis) 5 mg PO BID@08,21 09/29/21 09/29/21 Unknown History aspirin 325 mg tablet 325 mg PO BEDTIME 09/29/21 09/29/21 09/26/21 History budesonide 0.5 mg/2 mL suspension 0.5 mg INHALATION BID PRN 09/29/21 09/29/21 Unknown History for nebulization (Pulmicort) diphenhydramine 25 2 tab PO BEDTIME 09/29/21 09/29/21 Unknown History mg-acetaminophen 500 mg tablet (Tylenol PM Extra Strength) furosemide 40 mg tablet (Lasix) 40 mg PO DAILY PRN 09/29/21 09/29/21 Unknown History ibuprofen 200 mg tablet 200 mg PO BEDTIME 09/29/21 09/29/21 Unknown History lubiprostone 24 mcg capsule 24 mcg PO BID@,09/29/21 09/29/21 Unknown History (Amitiza) melatonin 3 mg tablet 6 mg PO BEDTIME 09/29/21 09/29/21 Unknown History metoprolol tartrate 25 mg tablet 25 mg PO BID@,09/29/21 09/29/21 09/26/21 History nitroglycerin 0.4 mg sublingual 0.4 mg SUBLINGUAL Q5M PRN 09/29/21 09/29/21 Unknown History tablet (Nitrostat) polyethylene glycol 3350 17 gram 17 g PO BEDTIME 09/29/21 09/29/21 Unknown History oral powder packet (Miralax) quetiapine 50 mg tablet (Seroquel) 50 mg PO BEDTIME@09/29/21 09/29/21 09/26/21 History sertraline 100 mg tablet 100 mg PO DAILY@09/29/21 09/29/21 Unknown History triamcinolone acetonide 0.1 % 1 applic TOPICAL BID PRN 09/29/21 09/29/21 Unknown History topical cream Allergies Allergy/AdvReac Type Severity Reaction Status Date / Time hydromorphone Allergy hives Verified 09/29/21 16:51 Current Medications Generic Name Dose Route Start Last Admin Trade Name Freq PRN Reason Stop Dose Admin Hydrocodone Bitart/Acetaminophen 1 tab 10/03/21 22:42 10/05/21 09:06 Hydrocodone-Acetaminophen 5-325 Mg Tablet PO 1 tab Q4H PRN Administration MODERATE PAIN Albuterol Sulfate 2 puff 09/29/21 20:40 10/03/21 16:41 Albuterol 8 Gm Mdi INHALATION 2 puff QID.RESPIRATORY PRN Administration Shortness Of Breath Amlodipine Besylate 10 mg 09/30/21 08:00 10/05/21 09:04 Amlodipine 10 Mg Tablet PO 10 mg DAILY CHRIS Administration Aspirin 81 mg 09/29/21 21:00 10/03/21 21:25 Aspirin 81 Mg Ec Tablet PO 81 mg BEDTIME CHRIS Administration Baclofen 10 mg 09/29/21 21:00 10/05/21 09:04 Baclofen 10 Mg Tablet PO 10 mg TID CHRIS Administration Budesonide 0.5 mg 09/29/21 20:40 10/03/21 07:17 Budesonide 0.5 Mg/2 Ml Neb INHALATION 0.5 mg BID.RESPIRATORY PRN Administration unknown Enoxaparin Sodium 40 mg 10/01/21 10:00 10/04/21 09:16 Enoxaparin 40 Mg/0.4 Ml Syringe SUBCUT 40 mg Q24H CHRIS Administration Hydralazine HCl 10 mg 09/30/21 09:00 10/05/21 09:04 Hydralazine 10 Mg Tablet PO 10 mg TID CHRIS Administration Metoprolol Tartrate 25 mg 09/29/21 21:00 10/05/21 09:04 Metoprolol Tartrate 25 Mg Tablet PO 25 mg BID@ CHRIS Administration Nitrofurantoin Macrocrystals 100 mg 09/29/21 20:40 10/05/21 09:04 Nitrofurantoin Sr (Bid) 100 Mg Capsule PO 100 mg BID CHRIS Administration Olanzapine 2.5 mg 10/02/21 21:00 10/04/21 21:18 Olanzapine 5 Mg Tablet PO 2.5 mg BEDTIME CHRIS Administration Polyethylene Glycol 17 gm 09/29/21 21:00 10/04/21 21:18 Polyethylene Glycol 3350 Pkt 17 Gm PO 17 gm BEDTIME CHRIS Administration Senna/Docusate Sodium 1 tab 10/01/21 18:00 10/05/21 08:47 Sennosides-Docusate Tablet PO Not Given BID CHRIS Sertraline HCl 100 mg 09/29/21 21:00 10/04/21 21:18 Sertraline 100 Mg Tablet PO 100 mg DAILY@ CHRIS Administration PFSH Anesthesia Medical History (Updated 10/04/21 @ 12:20 by Moody Bruner MD) Acute on chronic congestive heart failure Acute urinary retention Atherosclerotic heart disease of [place] coronary artery without angina pectoris Benign essential hypertension with target blood pressure below 140/90 CAD (coronary artery disease) Chronic constipation Chronic knee pain Chronic neck and back pain Chronic prescription opiate use Chronic prescription opiate use Chronic right hip pain 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 Diastolic heart failure DVT (deep venous thrombosis) Dyslipidemia Encounter for long-term opiate analgesic use Encounter for narcotic contract discussion Generalized anxiety disorder Gram-positive bacteremia 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 History of DVT (deep vein thrombosis) Hx of cervical spinal arthrodesis Hypertension Insomnia Intervertebral disc disorder with radiculopathy of lumbosacral region Lower abdominal pain Lumbar disc disease Lumbar spondylosis Lumbar stenosis with neurogenic claudication Major depressive disorder, recurrent severe without psychotic features Pain, joint, hand, right Pain, joint, shoulder, right Peripheral vascular disease Radial head fracture SBO (small bowel obstruction) Scoliosis of lumbar spine Skin tear Sleep apnea, unspecified SOB (shortness of breath) Uncircumcised male Unspecified dementia without behavioral disturbance Urinary retention Surgical History (Updated 10/04/21 @ 12:20 by Moody Bruner MD) History of cervical spinal surgery 1979 [facility] C6-C7 laminectomy/fusion/fixation History of heart artery stent (~2006) History of heart bypass surgery (~2007) History of hernia surgery 4x History of knee surgery Right History of lumbar surgery [facility]. L3-L4, L4-L5, L5-S1 decompression History of uvulopalatopharyngoplasty Hx of CABG Hx of CABG Hx of cholecystectomy Family History Father , at age 63 Diabetes Mother , at age 92 Colon cancer Hypertension Social History Smoking and tobacco status: former smoker Second hand smoke exposure: No Smoking risk assessment/counseling performed?: No Alcohol intake: never Desire information about alcohol rehabilitation?: No Counseling given: No Desire information about substance/drug rehabilitation?: No Counseling given: No Adopted: No Caregiver/support person: Yes Lives independently: No Household members: significant other Marital status: Number of children: 5 service: No Current occupational status: disabled History of recent travel: No Current gender identity: Male Data Anesthesia : 10/04/21 05:50 10/04/21 05:50 Short CBC 10/03/21 10/04/21 Range/Units 12:50 05:50 WBC 9.5 (4.0-10.0) 10^3/uL Hgb 12.4 (11.7-16.6) g/dL Hct 40.2 L (42.0-52.0) % MCV 89.7 (80-94) fl Plt Count 264 263 (130-400) 10^3/cmm Neut % (Auto) 57.8 % Neut # (Auto) 5.50 (1.8-7.7) 10^3/uL BMP 10/04/21 05:50 Sodium 136 Potassium 4.0 Chloride 105 Carbon Dioxide 24 BUN 17 Creatinine 0.9 Glucose 93 Calcium 9.0 Urine 10/04/21 Range/Units 16:10 Urine Color Yellow (Yellow) Urine Appearance Clear (CLEAR) Urine pH 6 (5-7) Ur Specific Sharon 1.015 (1.005-1.030) Urine Protein Neg (Negative) Urine Glucose (UA) Norm (Normal) Urine Ketones Negative (Negative) Urine Nitrate Negative (Negative) Urine Bilirubin Neg (Negative) Ur Leukocyte Esterase Negative (Negative) Cardiac Studies: Echocardiogram 09/29/21 Echocardiogram Limited Views 03/10/20 Echocardiogram Ultrasound 09/27/19 Transesophageal Echocardiogram 09/28/19 Sestamibi Stress Test (Cardiology) 09/29/21
[2021-10-05] MEDS: vancomycin 1,000 MG in sodium chloride 0.9% 250 ML 250 MG IV (14:35)
[2021-10-05] MEDS: fentaNYL 50 mcg/mL INJ 2mL IVP (14:39)
--- NOTE | 2021-10-05 16:01 | PC.NURSE ---
Patients right hip hurting. Dr. Giron verbalized to give 50mcg of fentanyl. STEFAN Kramer gave Fentanyl 50mcg. Patient was reassessed approximately 30 minutes later and stated to have significant relief of pain in hip.
--- NOTE | 2021-10-05 16:14 | W.PM.OPSUD ---
Surgery/Procedure H&P Update DATE OF PROCEDURE: October 05, 2021 DATE H&P PERFORMED: 10/04/21 H&P UPDATE INFORMATION: I have reviewed H&P completed within last 30 days, I have examined patient prior to procedure, No changes to prior documentation and H&P is in [facility] EMR on date indicated PREOP DIAGNOSIS: Avascular necrosis right hip PLANNED PROCEDURE: Operation Date: 10/05/21 13:45 Proposed Procedures p Total Hip Arthroplasty right/ avn right hip with collapse(Right) - Stephania Anderson MD Related Problem List Diagnoses (1) Avascular necrosis of bone of right hip:
[2021-10-05] MEDS: ceFAZolin 1,000 mg SDV 1000 MG IRRIGATION (17:49)
[2021-10-05] MEDS: vancomycin 1,000 MG SDV 1000 MG INTRA-ARTI (17:50)
--- NOTE | 2021-10-05 18:33 | XRR_ITS ---
PROCEDURE INFORMATION: Exam: XR Right Hip Exam date and time: 10/05/2021 6:35 PM Age: 81 years old Clinical indication: Screening exam; Post suregery, total right hip; Prior surgery; Surgery date: Post-operative (0-2 days); Additional info: Post op hip views and suture count TECHNIQUE: Imaging protocol: XR Right hip. Views: 1 view hip with pelvis when performed. COMPARISON: CR (PELVIS, ) 09/29/2021 5:02 PM FINDINGS: Bones/joints: Right hip arthroplasty changes seen in place with postsurgical soft tissue changes. Mild left hip osteoarthritis. Soft tissues: See Bones/joints finding. Vasculature: Scattered vascular calcifications. XR/XR hip RT 2-3V wo/w pel* [id number] IMPRESSION: 1. Right hip arthroplasty changes seen in place with postsurgical soft tissue changes. 2. Scattered vascular calcifications. 3. Mild left hip osteoarthritis.
--- NOTE | 2021-10-05 19:00 | PM.OP ---
Operative Report Date of procedure: October 05, 2021 Pre-op diagnosis: Avascular necrosis right hip Post-op diagnosis: Avascular necrosis right hip Post-op findings: Severe deformity of the femoral head with large osteophytes, contracture of the hip, and deformity of the acetabulum Procedure done: Right total hip arthroplasty Implants: The Rolando total hip system with the following implants: A 54 mm by E Trident II solid back acetabular shell, an MDM cementless liner 42 mm inner diameter by E alpha code and Accolade II size 7 with 127 degree neck angle hip stem with a 28 mm outer diameter -4 mm neck offset and a shinto X3 insert size 28 mm inner diameter by 42E Specimens removed/disposition: Femoral head sent to pathology Surgeon: Stephania Anderson Contractor Buyer: [facility] operating room technicians Anesthesia: MAC (With spinal, ASA 3) Estimated blood loss (mL): 250 IV fluids (mL): 700 Urine output (mL): 150 Complications: None Findings: Severe osteoarthritis secondary to avascular necrosis of the right hip. Significant flexion contracture and internal and external rotation contractures. Following surgical procedure, the hip was stable at 90 degrees of flexion with 80 degrees of internal rotation and 30 degrees of adduction. It was also stable to external rotation and toe hanging. Condition: stable Disposition: PACU (Then returned to floor for postoperative rehabilitation and pain management with ongoing medical care) Brief History: This 81-year-old gentleman presented through the emergency department last week with urosepsis and inability to ambulate. I was consulted regarding this patient's care as I had previously seen him in the office, and the patient was to have been scheduled for total hip arthroplasty following medical clearances. It was felt that he would not be functional in his activities of daily living if this significant deformity and arthritic change within his hip was not addressed. Discussion was undertaken with the patient. Previous discussion of been undertaken with the patient and his significant other. He was consented for surgery through the power of defense attorney which is his significant other. Procedure: Patient was brought to the operating theater.? He was transferred to the operating room table and subsequently administered a spinal anesthesia with MAC, ASA 3.? Following administration of adequate anesthesia, the patient was placed in full lateral position and held in position with a pegboard.? The patient's right lower extremity was then prepped and draped in usual fashion utilizing DuraPrep.? It was draped free.? Following prepping and draping, a surgical pause was performed. At the time of surgical pause, we identified the site and side of surgery.? We also identified the patient and preoperative surgical markings.? Confirmation was made of equipment availability.? Additionally, the patient's preoperative IV antibiotic, vancomycin 1 g, was confirmed as being given in a timely fashion and being the appropriate antibiotic.? He received TXA 1 g preoperatively as well. Following the surgical pause, an incision was made centering over the patient's greater trochanter continuing proximally and distally as necessary to allow access to the hip joint.? Dissection continued through skin and soft tissues using a scalpel, and hemostasis was obtained using electrocautery. The tensor fascia nikolas was identified and incised longitudinally.? Sciatic nerve was identified and protected throughout the surgical procedure.? A Charnley U retractor was placed after the tensor fascia nikolas had been incised longitudinally, and the sciatic nerve had been identified.? The piriformis muscle was identified and tagged. Piriformis muscle along with the remaining short external rotators were then incised from the posterior aspect of the hip joint. These were retracted posteriorly. ? The capsule was entered in a T-type fashion with the edges being tagged. The hip was then dislocated. Following hip dislocation, a femoral neck osteotomy was accomplished in the appropriate position. We then evaluated the acetabulum. The femur was retracted anteriorly.? Soft tissues were retracted and the labrum was removed.? We then began reaming.? We deepened the acetabulum utilizing a smaller reamer.? Evaluation of the acetabulum was accomplished, and we were able to ream to 53 mm to allow for a size 54 mm acetabular shell. The acetabular component was impacted into position. It was noted that the acetabulum matched the bony anatomy.? The cup was noted to seat nicely and had good fixation upon impact.? The MDM cementless liner was impacted into position and care was taken to assure that it completely seated.? Also, we confirmed that the acetabular insert was completely seated prior to addressing the femur. Attention was directed to the proximal femur.? The proximal femur was lifted out of the wound.? A canal finder was passed, and we then used the reamer to lateralize.? We then began broaching. ?We broached sequentially and had excellent fit and fill with the size 7 Accolade II 127 degree femoral component.? A trial reduction was accomplished with a -4 mm offset femoral head once the size 7 broach was placed in position.? The patient was stable with this construct, and it was not felt that we had increased her leg length.? With this in place, we had the above stabilities, and at that time, we felt that we had restored leg lengths.? We also felt that we had excellent stability noted above. Therefore, trial components were removed after the hip was dislocated.? The size 7 Accolade II 127 degree neck angle hip stem was impacted into position without difficulty and onto this was placed a -4 mm offset by 28 mm outer diameter femoral head inside of the MDM size 42E insert with a 28 mm inner diameter.? With this construct, we had the above-noted stability.? The stem was noted to seat nicely prior to placement of the femoral head.? The wound was copiously irrigated with Betadine.? At this time, with all components in appropriate position, the hip was reduced.? Following reduction of the prosthesis once again, we confirmed the stability of the hip.? Leg lengths were also felt to be satisfactory. Being satisfied with the prosthesis, attention was directed to closure.? Closure was accomplished with 0 Vicryl in the capsular tissues.? Piriformis was reattached with 0 Vicryl as well.? Tensor fascia nikolas was closed with 0 Vicryl in an interrupted fashion.? The subcutaneous tissues were closed with 2-0 Monocryl.? Vancomycin powder and a Gelfoam thrombin mixture was placed into the wound as well.? The skin was closed with 4-0 Monocryl followed by Dermabond, Prineo, and OpSite.? The patient was placed in an abduction pillow.? She was returned the Recovery Room in a satisfactory condition and will be discharged to the floor for postoperative rehabilitation and pain management.? There were no complications. Related Problem List Diagnoses (1) Avascular necrosis of bone of right hip:
--- NOTE | 2021-10-05 19:05 | PC.NURSE ---
Report to Gisella AVILES
--- NOTE | 2021-10-05 19:55 | ANE.PACU2 ---
Inpatient post-anesthesia follow up: Airway intact: Yes Vital signs: Temperature 97.6 F Pulse Rate 71 Respiratory Rate 18 Blood Pressure 130/75 Pulse Oximetry 95 Oxygen Delivery Me thod Room Air Oxygen Flow Rate 6 Fraction of Inspir ed Oxygen Hydration adequate: Yes Nausea and vomiting: No Pain level: 2 Mental status: Baseline
[2021-10-05 21:35] LABS: Glucose Point of Care 121 mg/dL (70-110)
[2021-10-05] MEDS: sertraline 100 mg Tablet PO (21:37)
[2021-10-05] MEDS: OLANZapine 5 mg TABLET 2.5 MG PO (21:37)
[2021-10-05] MEDS: aspirin 81 mg EC Tablet PO (21:38)
[2021-10-05] MEDS: CELEcoxib 200 mg Capsule PO (21:38)
[2021-10-05] MEDS: acetaminophen 1,000 MG/100 ML PIGGYBACK 400 MG IV (21:42)
[2021-10-05] MEDS: oxyCODONE 5 mg IR Tab/Cap PO (23:25)
[2021-10-06] VITALS (9 sets, daily range): BP systolic 113–128; BP diastolic 63–70; PULSE 63–86; RESP 14–18; TEMP 36.6–37.1; O2SAT 90–92
[2021-10-06] MEDS: acetaminophen 1,000 MG/100 ML PIGGYBACK 400 MG IV ×2 (05:07→12:00)
[2021-10-06] MEDS: HYDROcodone-acetaminophen 5-325 mg Tablet 1 TAB PO ×2 (05:08→13:29)
[2021-10-06 05:52] LABS: Basophils # 0.1 10^3/uL (0.0-0.1); Basophils % 0.7 %; Eosinophils # 0.2 10^3/uL (0.0-0.8); Eosinophils % 1.8 %; Hematocrit 39.6 % (42.0-52.0); Lymphocytes # 1.5 10^3/uL (0.8-4.8); Lymphocytes % 13.3 %; Mean Corpuscular HGB Conc 30.3 g/dL (30.0-36.0); Mean Corpuscular Hemoglobin 27.9 pg (28.0-34.0); Mean Corpuscular Volume 92.1 fl (80-94); Mean Platelet Volume 10.9 fL (7.4-10.4); Monocytes # 1.1 10^3/uL (0.2-0.9); Monocytes % 9.4 %; Neutrophils # 8.49 10^3/uL (1.8-7.7); Neutrophils % 74.4 %; Nucleated Red Blood Cells % 0 %; Platelet Count 243 10^3/cmm (130-400); Red Cell Distribution Width 16.5 % (12.1-15.1); White Blood Count 11.4 10^3/uL (4.0-10.0)
[2021-10-06 06:15] LABS: Blood Urea Nitrogen 18 mg/dL (8-23); Calcium 8.7 mg/dL (8.5-10.5); Carbon Dioxide 20 mmol/L (22-29); Chloride 104 mmol/L (98-107); Glucose 99 mg/dL (65-115); Osmolality Calculated 282 mOsm/kg (285-295); Sodium 135 mmol/L (136-145)
[2021-10-06 06:18] LABS: Anion Gap 15.2 (5-19); Potassium 4.2 mmol/L (3.5-5.1)
[2021-10-06] MEDS: albuterol 8 gm MDI 2 PUFF INHALATION (08:38)
[2021-10-06] MEDS: budesonide 0.5 mg/2 mL Neb INHALATION (08:39)
--- NOTE | 2021-10-06 09:04 | PM.PN ---
Subjective Subjective: This morning patient was awake and alert working with PT, PT recommended rehab No postoperative complications Hemoglobin stable, afebrile Negative fluid balance Vitals/I&O/Wt Last Vital Signs Temp 98.6 F 10/06/21 07:18 Pulse 84 10/06/21 08:45 Resp 17 10/06/21 08:39 BP 121/70 10/06/21 07:18 Pulse Ox 92 10/06/21 08:39 10/05/21 10/06/21 10/06/21 22:59 06:59 14:59 Intake Total 100 / 100 100 / 200 Output Total 1050 / 1050 500 / 1550 Balance -950 / -950 -400 / -1350 Physical Exam Narrative: Pleasant cooperative working with PT S1, S2 Euvolemic No active bedbugs Abdomen soft No signs of focal deficits neurologically Appropriate and cooperative Saturating well on room air Urinary Catheter Management: Miranda: Cath Placed During This Visit: yes Reason for Continuing Indwelling Catheter: Perioperative Use in Selected Surgeries Urinary Catheter Date of Insertion: 10/04/21 Urinary Catheter Time of Insertion: 16:16 Data : 10/06/21 04:47 10/06/21 04:47 A&P Assessment and plan (1) UTI (urinary tract infection): Status: Acute (2) History of anxiety: Status: Acute (3) History of depression: Status: Acute (4) Delirium: Status: Acute (5) Avascular necrosis of bone of right hip: Status: Acute Plan Status post total right hip arthroplasty 10/05 Postop day 1 No postop complications We will need rehab Continue DVT prophylaxis, opioids and bowel regimen Patient is stating that he is going to file divorce Continue antipsychotics Resume Eliquis Cardiac diet Patient is full code Awaiting rehab placement UTI: Resolved IV antibiotics changed to p.o. Appreciate psych recommendation A. fib without RVR, continue Eliquis, continue metoprolol Attestations Medical Necessity Statement*: Awaiting placement Time Spent in Patient Care: 15mins Coding Level of Care Code Acute Payroll Technician for Katiuska Carter Diagnoses UTI (urinary tract infection) N39.0 History of anxiety Z86.59 History of depression Z86.59 Delirium R41.0 Avascular necrosis of bone of right hip M87.051
[2021-10-06] MEDS: CELEcoxib 200 mg Capsule PO ×2 (09:22→19:46)
[2021-10-06] MEDS: iron polysaccharide complex 150 mg Capsule PO ×2 (09:22→18:36)
[2021-10-06] MEDS: hyDRALAzine 10 mg Tablet PO ×3 (09:22→21:25)
[2021-10-06] MEDS: cholecalciferol (vitamin D3) 1,000 unit Tablet 1000 UNIT PO (09:22)
[2021-10-06] MEDS: amlodipine 10 mg Tablet PO (09:23)
[2021-10-06] MEDS: nitrofurantoin SR (BID) 100 mg Capsule PO ×2 (09:23→18:36)
[2021-10-06] MEDS: multivitamin therapeutic Tablet 1 TAB PO (09:23)
[2021-10-06] MEDS: calcium carbonate 500 mg Chew Tablet 1000 MG PO ×2 (09:23→18:35)
[2021-10-06] MEDS: baclofen 10 mg Tablet PO ×3 (09:23→21:25)
[2021-10-06] MEDS: sennosides-docusate Tablet 1 TAB PO (09:23)
[2021-10-06] MEDS: metoprolol tartrate 25 mg Tablet PO ×2 (09:27→21:25)
--- NOTE | 2021-10-06 10:49 | PC.SOCIAL ---
IMM Updated Updated pt on IMM. No questions voiced. Provided pt a copy. Initialed, dated, & timed copy in chart.
[2021-10-06] MEDS: chlorhexidine gluconate 0.12% Btl 473 mL 30 ML MUCOUS MEM ×2 (13:30→21:27)
--- NOTE | 2021-10-06 16:15 | PM.PN ---
Subjective Subjective: Patient underwent right total hip arthroplasty. He is complaining of pain today, but he was up with therapy. Medications: Reviewed: Yes Vitals/I&O/Wt Last Vital Signs Temp 98.8 F 10/06/21 15:51 Pulse 86 10/06/21 15:51 Resp 14 10/06/21 15:51 BP 124/69 10/06/21 15:51 Pulse Ox 91 10/06/21 15:51 10/06/21 10/06/21 10/06/21 06:59 14:59 22:59 Intake Total 100 / 200 100 / 100 Output Total 500 / 1550 300 / 300 Balance -400 / -1350 -200 / -200 Physical Exam Const: COMMON NORMALS: no acute distress, average body habitus, patient oriented x3 and alert GENERAL APPEARANCE: cooperative and comfortable ORIENTATION/CONSCIOUSNESS: Yes awake HENMT: COMMON NORMALS: normocephalic and atraumatic HEAD & SCALP: normocephalic and atraumatic Eye: GENERAL EYE: appearance normal, both eyes and all related structures Chest: COMMONS NORMALS: normal inspection of the chest Resp: COMMON NORMALS: normal respiratory effort EFFORT & INSPECTION: Yes able to speak in complete sentences and Yes symmetric chest movement Extremity: NARRATIVE EXTREMITY EXAM: In May 2021, when the patient was seen in my office, he was using a wheelchair as he was unable to ambulate on the right hip. RIGHT LOWER EXTREMITY: Yes hip joint (No erythema or ecchymosis.) Right hip: Yes inspection (Thigh soft with minimal tenderness), Yes palpation (No fluctuance or other areas of concern), Yes ROM (Not evaluated.) and Yes neurovascular exam (Intact distally.) Neuro: COMMON NORMALS: patient oriented x3 SENSORIUM/ORIENTATION: Yes alert Psych: ATTITUDE: Yes engaged ATTENTION/CONCENTRATION: Yes attention grossly intact Skin: COMMON NORMALS: no rashes or lesions noted GENERAL SKIN EXAM: no rashes or lesions noted Urinary Catheter Management: Miranda: Cath Placed During This Visit: yes, but has since been removed by the nurse Reason for Continuing Indwelling Catheter: Not indwelling catheter Urinary Catheter Date of Insertion: 10/04/21 Urinary Catheter Time of Insertion: 16:16 Date Urinary Catheter Removed: 10/06/21 Time Urinary Catheter Discontinued: 13:37 Data : 10/06/21 04:47 10/06/21 04:47 A&P Assessment and plan (1) Avascular necrosis of bone of right hip: Comparing imaging studies from the patient's admission on September 29, 2021 with previous imaging studies from June 08, 2021, there is some possible progression of the avascular changes. The patient was admitted with a UTI and inability to move or ambulate. His hip pain was rated at an 8 of 10. He has had a complete medical work-up while here on this admission, his urinary tract infection has been treated. Patient underwent right total hip arthroplasty uneventfully yesterday, October 05. Today, he worked with physical therapy and continues to improve. Status: Acute Attestations Medical Necessity Statement*: Per attending, and patient requires ongoing medical care for mental status and post total joint arthroplasty. Coding Level of Care Code Acute Solar Photovoltaic Electrician for Katiuska Carter Diagnoses Avascular necrosis of bone of right hip M87.051
[2021-10-06] MEDS: sennosides-docusate Tablet 2 TAB PO (18:35)
[2021-10-06] MEDS: oxyCODONE 5 mg IR Tab/Cap PO ×2 (18:40→22:40)
[2021-10-06] MEDS: OLANZapine 5 mg TABLET 2.5 MG PO (21:24)
[2021-10-06] MEDS: polyethylene glycol 3350 Pkt 17 gm PO (21:24)
[2021-10-06] MEDS: apixaban 5 mg Tablet PO (21:25)
[2021-10-06] MEDS: aspirin 81 mg EC Tablet PO (21:25)
[2021-10-06] MEDS: sertraline 100 mg Tablet PO (22:40)
[2021-10-07] VITALS (12 sets, daily range): BP systolic 106–147; BP diastolic 54–70; PULSE 54–88; RESP 15–20; TEMP 36.4–37.4; O2SAT 90–95
[2021-10-07] MEDS: oxyCODONE 5 mg IR Tab/Cap PO ×5 (03:40→20:56)
[2021-10-07] MEDS: acetaminophen 500 mg Tablet 1000 MG PO ×2 (03:41→19:01)
[2021-10-07] MEDS: HYDROcodone-acetaminophen 5-325 mg Tablet 1 TAB PO (05:39)
--- NOTE | 2021-10-07 05:43 | PC.NURSE ---
SHIFT SUMMARY Has rested for intervals. When awake c/o pain in right hip and says pain increases with movement. Has been medicated with prn OXYIR and Hydrocodone as well as the scheduled po Tylenol. Ice pack to right hip. Dressing to incision lateral hip C&D. Taking po fluids well. Voids per urinal
[2021-10-07] MEDS: calcium carbonate 500 mg Chew Tablet 1000 MG PO ×2 (08:18→17:50)
[2021-10-07] MEDS: multivitamin therapeutic Tablet 1 TAB PO (08:19)
[2021-10-07] MEDS: sennosides-docusate Tablet 2 TAB PO ×2 (08:19→17:50)
[2021-10-07] MEDS: CELEcoxib 200 mg Capsule PO ×2 (08:19→20:56)
[2021-10-07] MEDS: cholecalciferol (vitamin D3) 1,000 unit Tablet 1000 UNIT PO (08:19)
[2021-10-07] MEDS: iron polysaccharide complex 150 mg Capsule PO ×2 (08:19→17:50)
[2021-10-07] MEDS: apixaban 5 mg Tablet PO ×2 (08:19→20:56)
[2021-10-07] MEDS: chlorhexidine gluconate 0.12% Btl 473 mL 30 ML MUCOUS MEM ×4 (08:20→20:55)
[2021-10-07] MEDS: baclofen 10 mg Tablet PO ×3 (08:20→20:55)
[2021-10-07] MEDS: nitrofurantoin SR (BID) 100 mg Capsule PO ×2 (09:08→17:50)
--- NOTE | 2021-10-07 12:01 | P.PN_ITS ---
Subjective Subjective: He was able to work with PT today, he is also getting screened by a account service representative from a snf, Patient is endorsing feeling better, however he is asking me to increase his pain medications dose Looks comfortable on evaluation Vitals/I&O/Wt Last Vital Signs Temp 97.6 F 10/07/21 07:34 Pulse 56 L 10/07/21 07:34 Resp 18 10/07/21 08:19 BP 111/63 10/07/21 07:34 Pulse Ox 93 10/07/21 07:34 10/06/21 10/07/21 10/07/21 22:59 06:59 14:59 Intake Total 240 / 340 240 / 580 Output Total 475 / 775 375 / 1150 Balance -235 / -435 -135 / -570 Physical Exam Narrative: Euvolemic Nonfocal neuro exam NIH 0 Watching television Saturating well on room air S1, S2 Abdomen soft Saturating well on room air No active distress Urinary Catheter Management: Miranda: Cath Placed During This Visit: yes, but has since been removed by the nurse Reason for Continuing Indwelling Catheter: Not indwelling catheter Urinary Catheter Date of Insertion: 10/04/21 Urinary Catheter Time of Insertion: 16:16 Date Urinary Catheter Removed: 10/06/21 Time Urinary Catheter Discontinued: 13:37 Data : 10/06/21 04:47 10/06/21 04:47 A&P Assessment and plan (1) UTI (urinary tract infection): Status: Acute (2) History of anxiety: Status: Acute (3) Delirium: Status: Acute (4) History of depression: Status: Acute (5) Avascular necrosis of bone of right hip: Status: Acute Plan Avascular necrosis right hip status post intervention No postop complications Delirium related to UTI: Resolved Appreciate neuropsych evaluation Plan to discharge him to rehab Most likely he will be discharged in next 24 to 30 hours Afebrile Increase his opioid regimen, continue bowel regimen Full code Work with PT on daily basis He was able to work with PT because of his pain yesterday Attestations Medical Necessity Statement*: Continue medical management, awaiting placement Time Spent in Patient Care: 20mins Coding Level of Care Code Acute Lettuce Cutter for Josephineg Fwd Diagnoses UTI (urinary tract infection) N39.0 History of anxiety Z86.59 Delirium R41.0 History of depression Z86.59 Avascular necrosis of bone of right hip M87.051
--- NOTE | 2021-10-07 16:50 | P.PN_ITS ---
Subjective Subjective: Patient is sitting up in a chair and appears in better spirits. He seems to be doing better with his therapies. He will likely be unable to return to his home. Medications: Reviewed: Yes Vitals/I&O/Wt Last Vital Signs Temp 97.6 F 10/07/21 15:18 Pulse 54 L 10/07/21 15:18 Resp 18 10/07/21 15:18 BP 111/63 10/07/21 15:18 Pulse Ox 93 10/07/21 15:18 10/07/21 10/07/21 10/07/21 06:59 14:59 22:59 Intake Total 240 / 580 490 / 490 Output Total 375 / 1150 Balance -135 / -570 490 / 490 Physical Exam Const: COMMON NORMALS: no acute distress, average body habitus, patient oriented x3 and alert GENERAL APPEARANCE: cooperative and comfortable ORIENTATION/CONSCIOUSNESS: Yes awake HENMT: COMMON NORMALS: normocephalic and atraumatic HEAD & SCALP: normocephalic and atraumatic Eye: GENERAL EYE: appearance normal, both eyes and all related structures Chest: COMMONS NORMALS: normal inspection of the chest Resp: COMMON NORMALS: normal respiratory effort EFFORT & INSPECTION: Yes able to speak in complete sentences and Yes symmetric chest movement Extremity: NARRATIVE EXTREMITY EXAM: In May 2021, when the patient was seen in my office, he was using a wheelchair as he was unable to ambulate on the right hip. RIGHT LOWER EXTREMITY: Yes hip joint (No drainage.) Right hip: Yes inspection (Thigh soft and nontender.), Yes palpation (Nontender) and Yes neurovascular exam (Intact no evidence of DVT.) Neuro: COMMON NORMALS: patient oriented x3 SENSORIUM/ORIENTATION: Yes alert Psych: ATTITUDE: Yes engaged ATTENTION/CONCENTRATION: Yes attention grossly intact Skin: COMMON NORMALS: no rashes or lesions noted GENERAL SKIN EXAM: no rashes or lesions noted Urinary Catheter Management: Miranda: Cath Placed During This Visit: yes, but has since been removed by the nurse Reason for Continuing Indwelling Catheter: Not indwelling catheter Urinary Catheter Date of Insertion: 10/04/21 Urinary Catheter Time of Insertion: 16:16 Date Urinary Catheter Removed: 10/06/21 Time Urinary Catheter Discontinued: 13:37 Data : 10/06/21 04:47 10/06/21 04:47 A&P Assessment and plan (1) Avascular necrosis of bone of right hip: Comparing imaging studies from the patient's admission on September 29, 2021 with previous imaging studies from June 08, 2021, there is some possible p rogression of the avascular changes. The patient was admitted with a UTI and inability to move or ambulate. His hip pain was rated at an 8 of 10. He has had a complete medical work-up while here on this admission, his urinary tract infection has been treated. Patient underwent right total hip arthroplasty uneventfully yesterday, October 05. Today, he worked with physical therapy and continues to improve. Status: Acute Attestations Medical Necessity Statement*: Continue hospitalization for post total hip arthroplasty rehab Coding Level of Care Code Acute Hand Slitter for Katiuska Carter Diagnoses Avascular necrosis of bone of right hip M87.051
[2021-10-07] MEDS: aspirin 81 mg EC Tablet PO (20:55)
[2021-10-07] MEDS: hyDRALAzine 10 mg Tablet PO (20:55)
[2021-10-07] MEDS: metoprolol tartrate 25 mg Tablet PO (20:55)
[2021-10-07] MEDS: OLANZapine 5 mg TABLET 2.5 MG PO (20:56)
[2021-10-07] MEDS: sertraline 100 mg Tablet PO (21:04)
[2021-10-07] MEDS: polyethylene glycol 3350 Pkt 17 gm PO (21:04)
[2021-10-08] VITALS (15 sets, daily range): BP systolic 104–132; BP diastolic 49–89; PULSE 56–82; RESP 16–24; TEMP 36.3–37.1; O2SAT 90–95
[2021-10-08] MEDS: oxyCODONE 5 mg IR Tab/Cap PO ×2 (02:30→07:51)
[2021-10-08] MEDS: acetaminophen 500 mg Tablet 1000 MG PO ×2 (02:30→12:33)
--- NOTE | 2021-10-08 06:40 | PC.NURSE ---
SHIFT SUMMARY Has rested well tonight. Has been medicated with scheduled po Tylenol and OXYIR tonight for c/o pain in right hip. Does tell me he thinks the pain is getting some better. Says still hurts pretty severely when he moves his leg. Dressing to lat hip is C&D. Ice packs in place.
[2021-10-08] MEDS: albuterol 8 gm MDI 2 PUFF INHALATION (07:41)
[2021-10-08] MEDS: iron polysaccharide complex 150 mg Capsule PO ×2 (09:14→16:55)
[2021-10-08] MEDS: apixaban 5 mg Tablet PO ×2 (09:14→21:58)
[2021-10-08] MEDS: metoprolol tartrate 25 mg Tablet PO ×2 (09:15→21:59)
[2021-10-08] MEDS: nitrofurantoin SR (BID) 100 mg Capsule PO (09:15)
[2021-10-08] MEDS: baclofen 10 mg Tablet PO ×3 (09:15→21:58)
[2021-10-08] MEDS: cholecalciferol (vitamin D3) 1,000 unit Tablet 1000 UNIT PO (09:15)
[2021-10-08] MEDS: sennosides-docusate Tablet 1 TAB PO (09:16)
[2021-10-08] MEDS: CELEcoxib 200 mg Capsule PO (09:16)
[2021-10-08] MEDS: multivitamin therapeutic Tablet 1 TAB PO (09:16)
[2021-10-08] MEDS: hyDRALAzine 10 mg Tablet PO ×3 (09:16→21:58)
[2021-10-08] MEDS: sennosides-docusate Tablet 2 TAB PO ×2 (09:16→16:54)
[2021-10-08] MEDS: amlodipine 10 mg Tablet PO (09:16)
[2021-10-08] MEDS: calcium carbonate 500 mg Chew Tablet 1000 MG PO ×2 (09:17→16:54)
[2021-10-08] MEDS: chlorhexidine gluconate 0.12% Btl 473 mL 30 ML MUCOUS MEM ×4 (09:18→22:05)
--- NOTE | 2021-10-08 10:37 | P.PN_ITS ---
Subjective Subjective: Patient is sitting up on the side of the bed. He is still requesting more pain medications. He is advised that I will not be giving him these. He needs to work with physical therapy to strengthen his lower extremities as he is very deconditioned. Medications: Reviewed: Yes Vitals/I&O/Wt Last Vital Signs Temp 97.8 F 10/08/21 09:39 Pulse 56 L 10/08/21 09:39 Resp 18 10/08/21 09:39 BP 112/56 10/08/21 09:39 Pulse Ox 93 10/08/21 09:39 10/07/21 10/08/21 10/08/21 22:59 06:59 14:59 Intake Total 540 / 1030 160 / 1190 Output Total 525 / 525 600 / 1125 Balance 15 / 505 -440 / 65 Physical Exam Const: COMMON NORMALS: no acute distress, average body habitus, patient oriented x3 and alert GENERAL APPEARANCE: cooperative and comfortable ORIENTATION/CONSCIOUSNESS: Yes awake HENMT: COMMON NORMALS: normocephalic and atraumatic HEAD & SCALP: normocephalic and atraumatic Eye: GENERAL EYE: appearance normal, both eyes and all related structures Chest: COMMONS NORMALS: normal inspection of the chest Resp: COMMON NORMALS: normal respiratory effort EFFORT & INSPECTION: Yes able to speak in complete sentences and Yes symmetric chest movement Extremity: NARRATIVE EXTREMITY EXAM: In May 2021, when the patient was seen in my office, he was using a wheelchair as he was unable to ambulate on the right hip. RIGHT LOWER EXTREMITY: Yes hip joint (Dressing remains dry and intact.) Right hip: Yes inspection (No significant swelling.), Yes palpation (No significant tenderness.) and Yes neurovascular exam (Intact including dorsiflexion.) Neuro: COMMON NORMALS: patient oriented x3 SENSORIUM/ORIENTATION: Yes alert Psych: ATTITUDE: Yes engaged ATTENTION/CONCENTRATION: Yes attention grossly intact Skin: COMMON NORMALS: no rashes or lesions noted GENERAL SKIN EXAM: no rashes or lesions noted Urinary Catheter Management: Miranda: Cath Placed During This Visit: yes, but has since been removed by the nurse Reason for Continuing Indwelling Catheter: Not indwelling catheter Urinary Catheter Date of Insertion: 10/04/21 Urinary Catheter Time of Insertion: 16:16 Date Urinary Catheter Removed: 10/06/21 Time Urinary Catheter Discontinued: 13:37 Data : 10/06/21 04:47 10/06/21 04:47 A&P Assessment and plan (1) Avascular necrosis of bone of right hip: Status: Acute (2) History of total right hip arthroplasty: Patient underwent uneventful total hip arthroplasty on October 05. He has been working with physical therapy, and although he is complaining of pain, he is actually doing well. He is working with physical therapy. He will require significant conditioning secondary to his long-term nonuse of his lower extremities. He will require custodial at the time of discharge. At the time of discharge, his dressing can remain intact until it peels off. He is to be weightbearing as tolerated with posterior hip precautions. Aspirin will be used prophylactically unless the medical service wishes to change this to a different product, but he will require approximately 1 month of DVT prophylaxis. Status: Acute Attestations Medical Necessity Statement*: Patient continues to await placement due to needing level 2 clearance. Coding Level of Care Code Acute Cylinder Valve Repairer for Katiuska Carter Diagnoses Avascular necrosis of bone of right hip M87.051 History of total right hip arthroplasty Z96.641
--- NOTE | 2021-10-08 10:48 | PC.CHAP ---
Pastoral Care Encounter/Spiritual Assessment Type of Contact [] Declined material manager visit [] Patient/Family/Request visit [] Outpatient visit [] Follow-up visit [] Physician referral [] Code/Alert [] Routine visit [] Staff referral [] Actively dying [] Patient sleeping [] Family support [] [] Out of room [] Palliative care [] [] Receiving care in room [] Pre-surgical visit [] Trauma [] Long length of stay [] ICU visit [] Other: Relational/Emotional Strength [] Patient feels connected with others/family/visitors/staff [] Distress [] Loneliness/isolation [] Abandonment Spirituality of Patient [] Person of Vanna [] Attends Latter-Day of their Vanna [] Believes in Prayer [] Reads Bible or Anabaptism materials [] There are Spiritual issues to be addressed International Coordinator Interventions [] Prayer [] Active listening [] Non-anxious presence [] Spiritual/emotional support [] Crisis/trauma care [] Spiritual counseling [] Bereavement support [] Provided bereavement packet [] Provided Bible/devotional materials [] Provided toy/stuffed animal, coloring book to patient or family member [] Provided Communion [] Anointing/[place] [] Salvation [] Completed spiritual assessment [] Other: Impact on Illness or Injury [] Angry [] Fearful [] Anxious [] Often cries [] Exhaustion [] Unable to work [] Unable to attend sabianist [] Unable to walk/stand [] Unable to read [] Unable to drive [] Unable to eat/drink [] Unable to sleep [] Unable to be with family [] Patient intubated [] Other: Summary Time spent with patient Pastoral Care Encounter/Spiritual Assessment Type of Contact [] Declined material manager visit [] Patient/Family/Request visit [] Outpatient visit [] Follow-up visit [] Physician referral [] Code/Alert [x] Routine visit [] Staff referral [] Actively dying [] Patient sleeping [] Family support [] [] Out of room [] Palliative care [] [] Receiving care in room [] Pre-surgical visit [] Trauma [] Long length of stay [] ICU visit [] Other: Relational/Emotional Strength [x] Patient feels connected with others/family/visitors/staff [] Distress [] Loneliness/isolation [] Abandonment Spirituality of Patient [x] Person of Vanna [] Attends Latter-Day of their Vanna [x] Believes in Prayer [] Reads Bible or Anabaptism materials [] There are Spiritual issues to be addressed International Coordinator Interventions [x] Prayer [x] Active listening [x] Non-anxious presence [x] Spiritual/emotional support [] Crisis/trauma care [] Spiritual counseling [] Bereavement support [] Provided bereavement packet [] Provided Bible/devotional materials [] Provided toy/stuffed animal, coloring book to patient or family member [] Provided Communion [] Anointing/[place] [] Salvation [x] Completed spiritual assessment [] Other: Impact on Illness or Injury [] Angry [] Fearful [] Anxious [] Often cries [] Exhaustion [] Unable to work [] Unable to attend sabianist [] Unable to walk/stand [] Unable to read [] Unable to drive [] Unable to eat/drink [] Unable to sleep [] Unable to be with family [] Patient intubated [] Other: Summary Time spent with patient 10 min
--- NOTE | 2021-10-08 10:49 | PC.SOCIAL ---
IMM Update Pg. 2 of IMM updated and reviewed with patient, who verbalized understanding. Copy provided.
--- NOTE | 2021-10-08 13:05 | P.PN_ITS ---
Subjective Subjective: Patient is complaining of pain in his right knee Spoke with Dr. Castano today Discontinue acetaminophen and celecoxib I will keep him on oxycodone for now Vitals/I&O/Wt Last Vital Signs Temp 97.4 F L 10/08/21 11:18 Pulse 66 10/08/21 11:18 Resp 17 10/08/21 10:58 BP 122/60 10/08/21 11:18 Pulse Ox 94 10/08/21 11:18 10/07/21 10/08/21 10/08/21 22:59 06:59 14:59 Intake Total 540 / 1030 160 / 1190 240 / 240 Output Total 525 / 525 600 / 1125 100 / 100 Balance 15 / 505 -440 / 65 140 / 140 Physical Exam Narrative: Patient is awake and alert Nonfocal neuro exam Saturating well Euvolemic Awake nonfocal neuro exam Abdomen soft S1, S2 No signs of vascular compromise No active distress Pleasant and cooperative Urinary Catheter Management: Miranda: Cath Placed During This Visit: yes, but has since been removed by the nurse Reason for Continuing Indwelling Catheter: Not indwelling catheter Urinary Catheter Date of Insertion: 10/04/21 Urinary Catheter Time of Insertion: 16:16 Date Urinary Catheter Removed: 10/06/21 Time Urinary Catheter Discontinued: 13:37 Data : 10/06/21 04:47 10/06/21 04:47 A&P Assessment and plan (1) History of total right hip arthroplasty: Status: Acute (2) UTI (urinary tract infection): Status: Acute (3) History of depression: Status: Acute (4) Delirium: Status: Acute (5) Avascular necrosis of bone of right hip: Status: Acute (6) Chronic knee pain: Status: Acute Plan Avascular necrosis right hip status post intervention Awaiting placement We will keep him on oxycodone, discontinued celecoxib and acetaminophen scheduled doses Continue bowel regimen Normotensive Continue cardiac diet Awaiting placement He is full code Delirium secondary to UTI: Resolved dc antibiotic now Patient will most likely be placed into rehab on Monday Full code Appreciate psych consultation Attestations Medical Necessity Statement*: Rehab on Monday Time Spent in Patient Care: 20min Coding Level of Care Code Acute Insulation Estimator for g Fwd Diagnoses History of total right hip arthroplasty Z96.641 UTI (urinary tract infection) N39.0 History of depression Z86.59 Delirium R41.0 Avascular necrosis of bone of right hip M87.051 Chronic knee pain M25.569; G89.29
[2021-10-08 13:11] LABS: SARS Covid-2 Antigen Negative (Negative)
[2021-10-08] MEDS: oxyCODONE 5 mg IR Tab/Cap 10 MG PO (16:55)
[2021-10-08] MEDS: sertraline 100 mg Tablet PO (21:58)
[2021-10-08] MEDS: aspirin 81 mg EC Tablet PO (21:58)
[2021-10-08] MEDS: polyethylene glycol 3350 Pkt 17 gm PO (21:58)
[2021-10-08] MEDS: OLANZapine 5 mg TABLET 2.5 MG PO (21:58)
[2021-10-09] VITALS (13 sets, daily range): BP systolic 125–152; BP diastolic 58–78; PULSE 59–89; RESP 16–24; TEMP 36.5–37.2; O2SAT 92–95
[2021-10-09] MEDS: albuterol 8 gm MDI 2 PUFF INHALATION (07:59)
[2021-10-09] MEDS: cholecalciferol (vitamin D3) 1,000 unit Tablet 1000 UNIT PO (08:18)
[2021-10-09] MEDS: multivitamin therapeutic Tablet 1 TAB PO (08:18)
[2021-10-09] MEDS: sennosides-docusate Tablet 1 TAB PO ×2 (08:19→17:59)
[2021-10-09] MEDS: sennosides-docusate Tablet 2 TAB PO (08:19)
[2021-10-09] MEDS: iron polysaccharide complex 150 mg Capsule PO ×2 (08:19→18:00)
[2021-10-09] MEDS: calcium carbonate 500 mg Chew Tablet 1000 MG PO ×2 (08:19→17:59)
[2021-10-09] MEDS: metoprolol tartrate 25 mg Tablet PO ×2 (08:19→20:44)
[2021-10-09] MEDS: apixaban 5 mg Tablet PO ×2 (08:19→20:44)
[2021-10-09] MEDS: hyDRALAzine 10 mg Tablet PO ×3 (08:19→20:44)
[2021-10-09] MEDS: amlodipine 10 mg Tablet PO (08:19)
[2021-10-09] MEDS: baclofen 10 mg Tablet PO ×3 (08:19→20:44)
[2021-10-09] MEDS: chlorhexidine gluconate 0.12% Btl 473 mL 30 ML MUCOUS MEM ×4 (08:21→20:45)
[2021-10-09] MEDS: oxyCODONE 5 mg IR Tab/Cap 10 MG PO ×3 (08:22→20:45)
--- NOTE | 2021-10-09 11:48 | P.PN_ITS ---
Subjective Subjective: Nonfocal neuro exam patient is doing well, to work with physical therapy today Not endorsing any new complaints Pleasant and cooperative during my evaluation Covid antigen negative Plan to discharge him on Monday Had 1 bowel movement yesterday Vitals/I&O/Wt Last Vital Signs Temp 98.9 F 10/09/21 11:17 Pulse 78 10/09/21 11:17 Resp 16 10/09/21 11:17 BP 125/73 10/09/21 11:17 Pulse Ox 95 10/09/21 11:17 10/08/21 10/09/21 10/09/21 22:59 06:59 14:59 Intake Total 960 / 1200 600 / 1800 360 / 360 Output Total 150 / 250 925 / 1175 300 / 300 Balance 810 / 950 -325 / 625 60 / 60 Physical Exam Narrative: Patient is sitting in his chair Saturating well on room air Pleasant and cooperative S1, S2 Abdomen soft Nonfocal neuro exam Saturating well Urinary Catheter Management: Miranda: Cath Placed During This Visit: yes, but has since been removed by the nurse Reason for Continuing Indwelling Catheter: Not indwelling catheter Urinary Catheter Date of Insertion: 10/04/21 Urinary Catheter Time of Insertion: 16:16 Date Urinary Catheter Removed: 10/06/21 Time Urinary Catheter Discontinued: 13:37 Data : 10/06/21 04:47 10/06/21 04:47 A&P Assessment and plan (1) History of total right hip arthroplasty: Status: Acute (2) UTI (urinary tract infection): Status: Acute (3) History of anxiety: Status: Acute (4) History of depression: Status: Acute (5) Delirium: Status: Acute (6) Avascular necrosis of bone of right hip: Status: Acute (7) Chronic knee pain: Status: Acute Plan Avascular necrosis of right hip status post intervention Currently pain under control Discontinue Tylenol yesterday Patient had 1 bowel movement yesterday, able to void without any difficulties UTI resolved Delirium: Improved Plan to discharge him on Monday to rehab Covid antigen negative Afebrile Doing well Continue cardiac diet Continue PT sessions on daily basis Attestations Medical Necessity Statement*: Discharge on Monday Time Spent in Patient Care: 20min Coding Level of Care Code Acute Dermatologist And Dermatopathologist for Josephineg Fwd Diagnoses History of total right hip arthroplasty Z96.641 UTI (urinary tract infection) N39.0 History of anxiety Z86.59 History of depression Z86.59 Delirium R41.0 Avascular necrosis of bone of right hip M87.051 Chronic knee pain M25.569; G89.29
[2021-10-09] MEDS: mupirocin oint 22 gm 1 APPLIC NASAL (18:25)
[2021-10-09] MEDS: OLANZapine 5 mg TABLET 2.5 MG PO (20:44)
[2021-10-09] MEDS: sertraline 100 mg Tablet PO (20:44)
[2021-10-09] MEDS: aspirin 81 mg EC Tablet PO (20:44)
[2021-10-10] VITALS (9 sets, daily range): BP systolic 120–132; BP diastolic 62–74; PULSE 55–75; RESP 16–22; TEMP 36.7–37.2; O2SAT 92–97
[2021-10-10] MEDS: oxyCODONE 5 mg IR Tab/Cap 10 MG PO ×3 (03:56→17:31)
[2021-10-10] MEDS: metoprolol tartrate 25 mg Tablet PO ×2 (07:56→21:00)
[2021-10-10] MEDS: iron polysaccharide complex 150 mg Capsule PO ×2 (07:57→17:32)
[2021-10-10] MEDS: cholecalciferol (vitamin D3) 1,000 unit Tablet 1000 UNIT PO (08:00)
[2021-10-10] MEDS: multivitamin therapeutic Tablet 1 TAB PO (08:00)
[2021-10-10] MEDS: amlodipine 10 mg Tablet PO (08:00)
[2021-10-10] MEDS: calcium carbonate 500 mg Chew Tablet 1000 MG PO ×2 (08:00→17:32)
[2021-10-10] MEDS: hyDRALAzine 10 mg Tablet PO ×3 (08:00→21:00)
[2021-10-10] MEDS: baclofen 10 mg Tablet PO ×3 (08:00→21:00)
[2021-10-10] MEDS: sennosides-docusate Tablet 2 TAB PO ×2 (08:01→17:33)
[2021-10-10] MEDS: apixaban 5 mg Tablet PO ×2 (08:01→21:00)
[2021-10-10] MEDS: mupirocin oint 22 gm 1 APPLIC NASAL ×2 (08:05→17:33)
[2021-10-10] MEDS: chlorhexidine gluconate 0.12% Btl 473 mL 30 ML MUCOUS MEM ×4 (08:05→21:00)
[2021-10-10] MEDS: albuterol 8 gm MDI 2 PUFF INHALATION (08:12)
--- NOTE | 2021-10-10 09:09 | PC.SOCIAL ---
IMM UPDATED Updated pt on IMM. No questions voiced. Provided pt a copy. Initialed, dated, & timed copy in chart.
--- NOTE | 2021-10-10 12:40 | PM.PN ---
Subjective Subjective: No active complaints Patient is doing well Patient is complaining of cough, will request sputum culture, add doxycycline Vitals/I&O/Wt Last Vital Signs Temp 98.2 F 10/10/21 12:00 Pulse 63 10/10/21 12:00 Resp 18 10/10/21 12:00 BP 120/73 10/10/21 12:00 Pulse Ox 97 10/10/21 12:00 10/09/21 10/10/21 10/10/21 22:59 06:59 14:59 Intake Total 240 / 600 Output Total 775 / 1075 300 / 1375 425 / 425 Balance -535 / -475 -300 / -775 -425 / -425 Physical Exam Narrative: Patient is doing well Nonfocal EOMI, PERRLA Saturating well on room air Abdomen soft Cooperative, pleasant No audible stridor or wheezing Urinary Catheter Management: Miranda: Cath Placed During This Visit: yes, but has since been removed by the nurse Reason for Continuing Indwelling Catheter: Not indwelling catheter Urinary Catheter Date of Insertion: 10/04/21 Urinary Catheter Time of Insertion: 16:16 Date Urinary Catheter Removed: 10/06/21 Time Urinary Catheter Discontinued: 13:37 Data : 10/06/21 04:47 10/06/21 04:47 A&P Assessment and plan (1) History of total right hip arthroplasty: Status: Acute (2) UTI (urinary tract infection): Status: Acute (3) History of depression: Status: Acute (4) History of anxiety: Status: Acute (5) Delirium: Status: Acute (6) Avascular necrosis of bone of right hip: Status: Acute (7) Chronic knee pain: Status: Acute (8) Productive cough: Status: Acute Plan Awaiting placement tomorrow For productive cough we will request urine culture, add doxycycline This is probably bronchitis I do not suspect pneumonia He is not requiring oxygen Afebrile Right hip arthroplasty for avascular necrosis He will need DVT prophylaxis and opioids at the time of discharge Patient is doing well on Zyprexa No active delusional signs or symptoms Attestations Medical Necessity Statement*: Awaiting placement tomorrow Time Spent in Patient Care: 20 Coding Level of Care Code Acute Travel Med Surg Rn for Chg Fwd Diagnoses History of total right hip arthroplasty Z96.641 UTI (urinary tract infection) N39.0 History of depression Z86.59 History of anxiety Z86.59 Delirium R41.0 Avascular necrosis of bone of right hip M87.051 Chronic knee pain M25.569; G89.29 Productive cough R05.8
[2021-10-10] MEDS: acetaminophen 325 mg Tablet 650 MG PO ×2 (15:20→22:41)
[2021-10-10] MEDS: OLANZapine 5 mg TABLET 2.5 MG PO (20:58)
[2021-10-10] MEDS: doxycycline 100 mg Tablet PO (20:58)
[2021-10-10] MEDS: aspirin 81 mg EC Tablet PO (20:59)
[2021-10-10] MEDS: polyethylene glycol 3350 Pkt 17 gm PO (20:59)
[2021-10-10] MEDS: sertraline 100 mg Tablet PO (21:00)
[2021-10-11] VITALS (9 sets, daily range): BP systolic 124–143; BP diastolic 63–83; PULSE 65–75; RESP 15–18; TEMP 37.1–37.2; O2SAT 90–96
[2021-10-11] MEDS: oxyCODONE 5 mg IR Tab/Cap 10 MG PO ×3 (00:10→14:34)
[2021-10-11] MEDS: acetaminophen 325 mg Tablet 650 MG PO (06:18)
[2021-10-11] MEDS: baclofen 10 mg Tablet PO ×2 (09:11→14:35)
[2021-10-11] MEDS: hyDRALAzine 10 mg Tablet PO ×2 (09:11→14:34)
[2021-10-11] MEDS: calcium carbonate 500 mg Chew Tablet 1000 MG PO (09:11)
[2021-10-11] MEDS: cholecalciferol (vitamin D3) 1,000 unit Tablet 1000 UNIT PO (09:12)
[2021-10-11] MEDS: multivitamin therapeutic Tablet 1 TAB PO (09:12)
[2021-10-11] MEDS: sennosides-docusate Tablet 2 TAB PO (09:12)
[2021-10-11] MEDS: iron polysaccharide complex 150 mg Capsule PO (09:12)
[2021-10-11] MEDS: amlodipine 10 mg Tablet PO (09:12)
[2021-10-11] MEDS: apixaban 5 mg Tablet PO (09:14)
[2021-10-11] MEDS: metoprolol tartrate 25 mg Tablet PO (09:16)
--- NOTE | 2021-10-11 10:05 | PM.DCS ---
Discharge Providers Date of Admission: 09/29/21 17:02 Date of Discharge: October 11, 2021 Attending Provider at Admission: Moody Bruner MD Attending Provider at Discharge: Moody Bruner MD Primary Care Provider: MEGGAN Obando Diagnoses at Discharge Discharge Diagnosis (1) History of total right hip arthroplasty: Status: Acute Permanent problem details: Date of procedure: October 05, 2021 Diagnosis: Avascular necrosis right hip Post-op findings: Severe deformity of the femoral head with large osteophytes, contracture of the hip, and deformity of the acetabulum Procedure done: Right total hip arthroplasty Implants: The Awarepoint total hip system with the following implants: A 54 mm by E Trident II solid back acetabular shell, an MDM cementless liner 42 mm inner diameter by E alpha code and Accolade II size 7 with 127 degree neck angle hip stem with a 28 mm outer diameter -4 mm neck offset and a hoahaoism X3 insert size 28 mm inner diameter by 42E (2) UTI (urinary tract infection): Status: Acute (3) History of depression: Status: Acute (4) History of anxiety: Status: Acute (5) Delirium: Status: Acute (6) Avascular necrosis of bone of right hip: Status: Acute (7) Chronic knee pain: Status: Acute (8) Productive cough: Status: Acute Reason for Visit Reason for Visit: DECREASED MOBILITY/ WELL BEING CHECK Hospital Course Hospital Course Pleasant 81-year-old male who was admitted for worsening of right-sided hip pain. He was diagnosed with avascular necrosis, preoperative work-up included stress test which was unremarkable, echo was unremarkable as well. Dr. Castano was consulted who did hip arthroplasty for right hip avascular necrosis. PT recommended rehab. For his delirium neuropsych consultation was obtained, he was not diagnosed with delusional disorder at this point, he was kept on Zyprexa at night, his delirium was attributed to UTI. He remained hemodynamically stable, no psychiatric signs or symptoms noted during hospitalization. Patient initially had concerns related to his significant other, he is under the impression that she is seeing someone younger than him and she invites people inside home in his presence. was scared to bring food inside the room as he was very aggressive with her and that is why he could not eat for a few days before his arrival in the ER. Dr. Erickson did not recommend psych unit. He recommended to treat UTI and keep him on Zyprexa. Physical Exam Narrative: Patient is doing well Nonfocal EOMI, PERRLA Saturating well on room air Abdomen soft Cooperative, pleasant No audible stridor or wheezing Urinary Catheter Management: Miranda: Cath Placed During This Visit: yes, but has since been removed by the nurse Reason for Continuing Indwelling Catheter: Not indwelling catheter Urinary Catheter Date of Insertion: 10/04/21 Urinary Catheter Time of Insertion: 16:16 Date Urinary Catheter Removed: 10/06/21 Time Urinary Catheter Discontinued: 13:37 Discharge Data Studies Completed and Pending Completed Studies During Hospitalization Category Date Time Status Sestamibi Stress Test Request Routine Exams 09/29/21 20:40 Completed XR chest 1V portable [id number] Stat Exams 09/29/21 14:43 Completed XR hip RT 1V wo/w pel [id number] Routine Exams 09/29/21 17:44 Completed XR hip RT 2-3V wo/w pel* [id number] Routine Exams 10/05/21 18:33 Completed NM kim perf SPECT r/s* [id number] Routine Nuc Med 09/30/21 20:40 Completed CV. echo complete* [id number] Routine Ultrasound 09/29/21 20:40 Completed Pending at discharge Category Date Time Status Sputum Culture and Gram Stain Routine Lab 10/10/21 12:42 Uncollected Pathology: Surgical [PTH] Routine Pth 10/05/21 18:04 Received Radiology Impressions Chest X-Ray 09/29/21 14:43 IMPRESSION: No acute findings Hip X-Ray 09/29/21 17:44 IMPRESSION: Findings highly consistent with avascular necrosis resulting in subchondral fracture with subsidence of osteochondral fragment. There is secondary severe degeneration with complete loss of joint space. This is unchanged from the prior x-rays. None of these findings were present on the previous CT. Hip/Pelvis X-Ray 10/05/21 18:33 IMPRESSION: 1. Right hip arthroplasty changes seen in place with postsurgical soft tissue changes. 2. Scattered vascular calcifications. 3. Mild left hip osteoarthritis. Laboratory Results WBC 11.4 10^3/uL (4.0-10.0) H 10/06/21 04:47 RBC 4.30 10^6/uL (4.1-5.3) 10/06/21 04:47 Hgb 12.0 g/dL (11.7-16.6) 10/06/21 04:47 Hct 39.6 % (42.0-52.0) L 10/06/21 04:47 MCV 92.1 fl (80-94) 10/06/21 04:47 MCH 27.9 pg (28.0-34.0) L 10/06/21 04:47 MCHC 30.3 g/dL (30.0-36.0) 10/06/21 04:47 RDW 16.5 % (12.1-15.1) H 10/06/21 04:47 Plt Count 243 10^3/cmm (130-400) 10/06/21 04:47 MPV 10.9 fL (7.4-10.4) H 10/06/21 04:47 Neut % (Auto) 74.4 % 10/06/21 04:47 Lymph % (Auto) 13.3 % 10/06/21 04:47 [place] % (Auto) 9.4 % 10/06/21 04:47 Eos % (Auto) 1.8 % 10/06/21 04:47 Baso % (Auto) 0.7 % 10/06/21 04:47 Neut # (Auto) 8.49 10^3/uL (1.8-7.7) H 10/06/21 04:47 Lymph # (Auto) 1.5 10^3/uL (0.8-4.8) 10/06/21 04:47 [place] # (Auto) 1.1 10^3/uL (0.2-0.9) H 10/06/21 04:47 Eos # (Auto) 0.2 10^3/uL (0.0-0.8) 10/06/21 04:47 Baso # (Auto) 0.1 10^3/uL (0.0-0.1) 10/06/21 04:47 Nucleated RBC % (auto) 0 % 10/06/21 04:47 Nucleated RBCs # 0.0 /100WBC 10/06/21 04:47 PT 13.90 SECONDS (12.1-14.9) 10/03/21 12:50 INR 1.04 (0.8-1.2) 10/03/21 12:50 APTT 33.1 SECONDS (23.9-36.7) 10/03/21 12:50 Fibrinogen 461 mg/dL (174-498) 10/03/21 12:50 Sodium 135 mmol/L (136-145) L 10/06/21 04:47 Potassium 4.2 mmol/L (3.5-5.1) 10/06/21 04:47 Chloride 104 mmol/L (98-107) 10/06/21 04:47 Carbon Dioxide 20 mmol/L (22-29) L 10/06/21 04:47 Anion Gap 15.2 (5-19) 10/06/21 04:47 BUN 18 mg/dL (8-23) 10/06/21 04:47 Creatinine 0.7 mg/dL (0.7-1.2) 10/06/21 04:47 GFR Calculation Not Reportable 10/06/21 04:47 Glucose 99 mg/dL (65-115) 10/06/21 04:47 POC Glucose 121 mg/dL (70-110) H 10/05/21 21:30 Calculated Osmolality 282 mOsm/kg (285-295) L 10/06/21 04:47 Calcium 8.7 mg/dL (8.5-10.5) 10/06/21 04:47 Magnesium 2.1 mg/dL (1.7-2.3) 09/29/21 15:20 Total Bilirubin 0.3 mg/dL (0.15-1.2) 09/30/21 05:23 AST 12 U/L (0-40) 09/30/21 05:23 ALT 8 U/L (0-41) 09/30/21 05:23 Alkaline Phosphatase 94 IU/L (40-130) 09/30/21 05:23 Creatine Kinase 107 U/L (39-308) 09/29/21 15:20 Total Protein 7.1 g/dL (6.6-8.7) 09/30/21 05:23 Albumin 3.4 g/dL (3.5-5.2) L 09/30/21 05:23 Globulin 3.7 g/dL (1.3-4.6) 09/30/21 05:23 Lipase 22 U/L (13-60) 09/29/21 15:20 Vitamin B12 226 pg/mL (232-1245) L 09/29/21 15:20 TSH 1.64 uIU/mL (0.27-4.20) 09/29/21 15:20 Urine Color Yellow (Yellow) 10/04/21 16:10 Urine Appearance Clear (CLEAR) 10/04/21 16:10 Urine pH 6 (5-7) 10/04/21 16:10 Ur Specific [place] 1.015 (1.005-1.030) 10/04/21 16:10 Urine Protein Neg (Negative) 10/04/21 16:10 Urine Glucose (UA) Norm (Normal) 10/04/21 16:10 Urine Ketones Negative (Negative) 10/04/21 16:10 Urine Blood Neg (Negative) 10/04/21 16:10 Urine Nitrate Negative (Negative) 10/04/21 16:10 Urine Bilirubin Neg (Negative) 10/04/21 16:10 Urine Urobilinogen Norm mg/dL (Negative) 10/04/21 16:10 Ur Leukocyte Esterase Negative (Negative) 10/04/21 16:10 Urine RBC 0-4 /hpf (0-2) H 09/29/21 16:05 Urine WBC 55-80 /hpf (0-5) H 09/29/21 16:05 Ur Squamous Epith Cells 0-4 /hpf (0-5) H 09/29/21 16:05 Amorphous Sediment Not Reportable 09/29/21 16:05 Urine Bacteria 4+ /hpf (NONE) H 09/29/21 16:05 Serum Ketones Negative (Negative) 09/29/21 15:20 SARS-CoV-2 Ag (Rapid) Negative (Negative) 10/08/21 12:45 Vitals Last Vital Signs Temp 98.8 F 10/11/21 07:16 Pulse 65 10/11/21 08:28 Resp 16 10/11/21 08:28 BP 143/64 10/11/21 07:16 Pulse Ox 92 10/11/21 08:28 Discharge Plan Discharge Patient Disposition: Xfer SNF Condition: Stable Prescriptions: New oxycodone 10 mg tablet 5 mg PO DAILY Qty: 10 0RF olanzapine 5 mg Tablet 2.5 mg PO BEDTIME Qty: 30 0RF nitrofurantoin monohyd/m-cryst [Macrobid] 100 mg capsule 100 mg PO BID 5 Days Qty: 10 0RF Rx Instructions: must administer with a meal/food hydralazine 10 mg Tablet 10 mg PO TID Qty: 90 0RF sennosides-docusate sodium [Stool Softener-Laxative] 8.6-50 mg Tablet 2 tab PO BID Qty: 60 0RF Continued ProAir HFA 90 mcg/actuation HFA aerosol inhaler 2 puff INHALATION QID PRN (Reason: Shortness Of Breath) Qty: 8.5 5RF baclofen 10 mg tablet 10 mg PO TID Qty: 90 5RF melatonin 3 mg Tablet 6 mg PO BEDTIME 0RF ibuprofen 200 mg Tablet 200 mg PO BEDTIME 0RF Nitrostat 0.4 mg Tablet, Sublingual 0.4 mg SUBLINGUAL Q5M PRN (Reason: Chest Pain) 0RF Rx Instructions: do not exceed 3 doses per episode Tylenol PM Extra Strength 25-500 mg Tablet 2 tab PO BEDTIME 0RF Doans Pill For Kidney 1 tab PO BID 0RF Lasix 40 mg tablet 40 mg PO DAILY PRN (Reason: Edema) 0RF Miralax 17 gram powder in packet 17 g PO BEDTIME 0RF sertraline 100 mg tablet 100 mg PO DAILY@21 0RF triamcinolone acetonide 0.1 % cream 1 applic topical BID PRN (Reason: unknown) 0RF Pulmicort 0.5 mg/2 mL suspension for nebulization 0.5 mg INHALATION BID PRN (Reason: unknown) 0RF metoprolol tartrate 25 mg tablet 25 mg PO BID@08,21 0RF Seroquel 50 mg tablet 50 mg PO BEDTIME@21 0RF Amitiza 24 mcg capsule 24 mcg PO BID@08,21 0RF Eliquis 5 mg tablet 5 mg PO BID@08,21 0RF Changed aspirin 325 mg Tablet 81 mg PO BEDTIME Qty: 0 0RF Discharge Orders: Discharge Order (Routine); Ordered 10/11/21 Ordered By: Moody Bruner Referrals: Brisa Jensen FNP-C [Primary Care Provider] - Stephania Anderson MD [Physician] - 2 weeks Discharge Activity: Increase activity as tolerated, Limit activity as instructed, Use walker/crutches as instructed and As per PT/OT instructions Activity Restrictions/Additional Instructions: Ice to right hip. Posterior hip precautions. Ambulate weightbearing as tolerated. Physical therapy for gait and strength training. Discharge Attestations Time Spent in Discharge Care*: less than 30 min Quality Metrics Clinical Quality Measures [ No reported AMI, CVA or VTE this stay] Coding Level of Care Code Acute g FW [place] note Diagnoses History of total right hip arthroplasty Z96.641 UTI (urinary tract infection) N39.0 History of depression Z86.59 History of anxiety Z86.59 Delirium R41.0 Avascular necrosis of bone of right hip M87.051 Chronic knee pain M25.569; G89.29 Productive cough R05.8
--- NOTE | 2021-10-11 11:30 | PC.OT ---
OT TREATMENT HELD TODAY DUE TO SCHEDULED PATIENT D/C
[2021-10-11] MEDS: doxycycline 100 mg Tablet PO (12:26)
== END 2021-10-11 15:10 | disposition skilled nursing facility (03) | DRG 470 ==
LOC: ER 14:45 → MEDSURG 17:35
PROVIDERS: Specialist; Admitting Provider Internal Medicine; Emergency Provider Family Medicine; PCP Nurse Practitioner; Visit Provider Internal Medicine
PROC: 0SR90JA Replacement of Right Hip Joint with Synthetic Substitute, Uncemented, Open Approach (ICD-10-PCS; CPT 27130; principal; 2021-10-05 13:45)
DX: M87.051 Idiopathic aseptic necrosis of right femur (principal); N39.0 Urinary tract infection, site not specified; Z79.01 Long term (current) use of anticoagulants; Z86.59 Personal history of other mental and behavioral disorders; R41.0 Disorientation, unspecified; M25.569 Pain in unspecified knee; G89.29 Other chronic pain; R05.8 Other specified cough; Z87.891 Personal history of nicotine dependence; R00.1 Bradycardia, unspecified; Z79.82 Long term (current) use of aspirin; I16.0 Hypertensive urgency; J44.9 Chronic obstructive pulmonary disease, unspecified; G47.33 Obstructive sleep apnea (adult) (pediatric); I10 Essential (primary) hypertension; F03.90 Unspecified dementia, unspecified severity, without behavioral disturbance, psychotic disturbance, mood disturbance, and anxiety; I48.91 Unspecified atrial fibrillation; E86.0 Dehydration; M51.37 Other intervertebral disc degeneration, lumbosacral region; Z86.718 Personal history of other venous thrombosis and embolism; Z79.891 Long term (current) use of opiate analgesic; F22 Delusional disorders; M16.11 Unilateral primary osteoarthritis, right hip
CPT/HCPCS: 36415; 36416; 51702; 71045; 73501; 73502; 78452; 80048; 80053; 81001; 81003; 82009; 82550; 82607; 82962; 83690; 83735; 84443; 85025; 85049; 85384; 85610; 85730; 87077; 87086; 87186; 87426; 88304; 88311; 90471; 90732; 93005; 93017; 93306; 94640; 96372; 97110; 97116; 97161; 97165; 97530; 97535; 99285; A9281; A9500; C1776; J0690; J0696; J1650; J2250; J2704; J2785; J3010; J3370; J3490; J3535; J7030; J7050; J7626

== ENCOUNTER → 2021-11-03 14:21 | Outpatient (BNVA) | payer OTHER, SELFPAY | PROVIDERS: PCP Nurse Practitioner; Visit Provider Specialist | DX: Z98.890 Other specified postprocedural states (principal); Z96.641 Presence of right artificial hip joint; Z87.891 Personal history of nicotine dependence | CPT/HCPCS: 73502 ==

== ENCOUNTER → 2023-01-30 10:47 | Outpatient (BNVA) | payer OTHER, SELFPAY | PROVIDERS: PCP Nurse Practitioner; Visit Provider Specialist | DX: M17.11 Unilateral primary osteoarthritis, right knee (principal) | CPT/HCPCS: 20610; 73560; 73565; 99214; J7325 ==

== ENCOUNTER 2023-07-23 08:53 | Emergency (ER) | payer MEDICARE, MEDICAID, SELFPAY ==
[2023-07-23] VITALS (53 sets, daily range): BP systolic 163–196; BP diastolic 69–98; PULSE 60–65; RESP 15–23; TEMP 36.8; O2SAT 91–96; BMI 33.9
--- NOTE | 2023-07-23 08:57 | XRR_ITS ---
PROCEDURE INFORMATION: Exam: XR Chest Exam date and time: 07/23/2023 9:26 AM Age: 83 years old Clinical indication: Cough and dyspnea; Additional info: Dyspnea/cough TECHNIQUE: Imaging protocol: Radiologic exam of the chest. Views: 1 view. COMPARISON: CR XR chest 1V portable [id number] 09/29/2021 1:54 PM FINDINGS: Lungs: Unremarkable. No consolidation. Pleural spaces: Unremarkable. No pleural effusion. No pneumothorax. Heart/Mediastinum: Changes of prior CABG. Bones/joints: Unremarkable. XR/XR chest 1V portable [id number] IMPRESSION: No acute findings.
--- NOTE | 2023-07-23 08:58 | W.ED.SOB ---
HPI - SOB/Dyspnea General: Chief Complaint: Shortness of Breath/Dyspnea Stated Complaint: SOB Time Seen by Provider: 07/23/23 08:57 Source: patient Mode of arrival: EMS History of Present Illness: HPI Narrative: 83-year-old male somewhat confused presents emergency room from long-term with a of shortness of breath. Patient occasionally uses up to 2 L at night of oxygen. He is on a fentanyl patch which from talking to of the sounds like was a recent change from oral hydrocodone (?). snf reported his sats were 90% range EMS gave an albuterol treatment in route and his sat is in the low 90s now he is not tachycardic he is mildly hypertensive. He reports she has some mild chest discomfort and some right lower quadrant pain he tells me that years ago he had a mesh placed for hernia and since then has had persistent abdominal pain. He denies any dysuria urgency or frequency but does state he has difficult time emptying his bladder. No fever sweats or chills reported either. MD elicited complaint: shortness of breath Pertinent past history: COPD Exacerbating factors: nothing Relieving factors: nothing Known history of: COPD Associated symptoms: Reports abdominal pain and chest pain; Deny chest congestion, cough, diaphoresis, dizziness, extremity pain, fever(s), hemoptysis, lightheadedness, myalgias, nausea, orthopnea, palpitations, paresthesias, polydipsia, polyuria, rash, sense of impending doom, syncope or vomiting Treatment prior to arrival: bronchodilator Review of Systems Const: Denies: fever(s), chills or diaphoresis Card: Reports: chest pain; Denies: palpitations, lightheadedness, syncope or orthopnea Resp: Denies: dyspnea, hemoptysis or chest congestion GI: Reports: abdominal pain; Denies: nausea or vomiting : Denies: dysuria, urinary frequency or urinary urgency Musc: Denies: neck pain, back pain or extremity pain Skin/Breast: Denies: rash Neuro: Denies: dizziness Endo: Denies: polyuria or polydipsia [facility] PFSH: Medical History (Updated 07/23/23 @ 12:50 by Abraham Griffin DO) History of anxiety History of depression Delusional disorder Avascular necrosis of bone of right hip Chronic knee pain Postlaminectomy syndrome of lumbar region Chronic neck and back pain Urinary tract infection With vancomycin-resistant Enterococcus faecalis. 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 Lumbar spondylosis Scoliosis of lumbar spine History of DVT (deep vein thrombosis) Benign essential hypertension with target blood pressure below 140/90 COPD (chronic obstructive pulmonary disease) with chronic bronchitis SBO (small bowel obstruction) Chronic prescription opiate use Peripheral vascular disease Diastolic heart failure CAD (coronary artery disease) Sleep apnea, unspecified Generalized anxiety disorder Major depressive disorder, recurrent severe without psychotic features Hx of cervical spinal arthrodesis 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 L3-L4, L4-L5, L5-S1 decompression Family History Father , at age 63 Diabetes Mother , at age 92 Colon cancer Hypertension Social History Smoking and tobacco/nicotine status: former use of tobacco/nicotine Second hand smoke exposure: No Alcohol intake: never Substance/Drug Use: never Adopted: No Caregiver/support person: Yes Lives independently: No Household members: significant other Marital status: Number of children: 5 service: No Current occupational status: disabled Do you think of yourself as: Straight/Heterosexual Current gender identity: Male Physical Exam Const: GENERAL APPEARANCE: cooperative and comfortable ORIENTATION/CONSCIOUSNESS: Yes awake HENMT: COMMON NORMALS: normocephalic, atraumatic and hearing grossly normal bilaterally HEAD & SCALP: normocephalic and atraumatic Resp: COMMON NORMALS: normal respiratory effort, No retractions, No use of accessory muscles and clear to auscultation bilaterally AUSCULTATION: clear to auscultation bilaterally Cardio: COMMON NORMALS: regular rate, regular rhythm and No murmurs present (Cardio) RATE: regular rate RHYTHM: regular rhythm GI: COMMON NORMALS: No hepatosplenomegaly present AUSCULTATION: Yes normoactive bowel sounds PALPATION: Yes Tenderness to palpation present (GI) Details: RLQ, No Guarding due to palpation present (GI) and Yes No hepatosplenomegaly present Extremity: COMMON NORMALS: normal to inspection, capillary refill normal, no clubbing, cyanosis or edema, no calf tenderness and no pedal edema Skin: COMMON NORMALS: no rashes or lesions noted GENERAL SKIN EXAM: no rashes or lesions noted Course Vital Signs: Vital signs: Vital Signs Temperature 98.3 F 07/23/23 08:54 Pulse Rate 60 07/23/23 09:50 Respiratory Rate 17 07/23/23 09:40 Blood Pressure 183/93 07/23/23 11:20 Pulse Oximetry 91 07/23/23 12:15 Oxygen Delivery Me thod Room Air 07/23/23 08:54 MDM - SOB/Dyspnea Medical Decision Making Presents with complaining of shortness of breath and abdominal discomfort. Chest x-ray not show anything acute sats maintaining in normal range except as expected for his known history of COPD. He is also complaining of abdominal pain CT abdomen was negative UA did show cystitis white count was normal and was discharged home on Macrobid and steroid taper. Aggressive use of butyryl ipratropium bromide nebs as needed for symptoms follow-up with primary care Medical Records I reviewed the patient's medical records. Lab Data I reviewed the patient's lab results. 07/23/23 09:15 07/23/23 09:15 Labs/Radiology: Radiology Impressions Chest X-Ray 07/23/23 08:57 IMPRESSION: No acute findings. Abdomen/Pelvis CT 07/23/23 09:20 IMPRESSION: No acute findings. Laboratory Results WBC 6.13 10^3/uL (3.29-11.43) 07/23/23 09:15 RBC 4.64 10^6/uL (3.85-5.65) 07/23/23 09:15 Hgb 13.50 g/dL (11.27-16.99) 07/23/23 09:15 Hct 43.5 % (37-53) 07/23/23 09:15 MCV 93.8 fl (82-101) 07/23/23 09:15 MCH 29.1 pg (27-33) 07/23/23 09:15 MCHC 31.0 g/dL (30-55) 07/23/23 09:15 RDW 16.4 % (12.1-15.1) H 07/23/23 09:15 Plt Count 203 10^3/cmm (157-399) 07/23/23 09:15 MPV 9.8 fL (7.4-10.4) 07/23/23 09:15 Neut % (Auto) 53.2 % 07/23/23 09:15 Lymph % (Auto) 24.0 % 07/23/23 09:15 [place] % (Auto) 10.3 % 07/23/23 09:15 Eos % (Auto) 11.3 % 07/23/23 09:15 Baso % (Auto) 1.0 % 07/23/23 09:15 Neut # (Auto) 3.27 10^3/uL (1.8-7.7) 07/23/23 09:15 Lymph # (Auto) 1.5 10^3/uL (0.8-4.8) 07/23/23 09:15 Todd # (Auto) 0.6 10^3/uL (0.2-0.9) 07/23/23 09:15 Eos # (Auto) 0.7 10^3/uL (0.0-0.8) 07/23/23 09:15 Baso # (Auto) 0.1 10^3/uL (0.0-0.1) 07/23/23 09:15 Nucleated RBC % (auto) 0 % 07/23/23 09:15 Nucleated RBCs # 0.0 /100WBC 07/23/23 09:15 Sodium 138 mmol/L (136-145) 07/23/23 09:15 Potassium 4.6 mmol/L (3.5-5.1) 07/23/23 09:15 Chloride 101 mmol/L (98-107) 07/23/23 09:15 Carbon Dioxide 30 mmol/L (22-29) H 07/23/23 09:15 Anion Gap 11.6 (5-19) 07/23/23 09:15 BUN 13 mg/dL (8-23) 07/23/23 09:15 Creatinine 1.2 mg/dL (0.7-1.2) 07/23/23 09:15 GFR Calculation Not Reportable 07/23/23 09:15 Glucose 102 mg/dL (65-115) 07/23/23 09:15 Calculated Osmolality 286 mOsm/kg (285-295) 07/23/23 09:15 Calcium 9.2 mg/dL (8.5-10.5) 07/23/23 09:15 Total Bilirubin 0.2 mg/dL (0.15-1.2) 07/23/23 09:15 AST 18 U/L (0-40) 07/23/23 09:15 ALT 17 U/L (0-41) 07/23/23 09:15 Alkaline Phosphatase 80 U/L (40-130) 07/23/23 09:15 Troponin T Baseline 20 ng/L (0-15) H 07/23/23 09:15 Troponin T 120 Minute 17.34 ng/L (0-15) H 07/23/23 11:17 Delta Troponin T -2.66 ABS# (0-10) L 07/23/23 11:17 Total Protein 6.6 g/dL (6.6-8.7) 07/23/23 09:15 Albumin 3.8 g/dL (3.5-5.2) 07/23/23 09:15 Globulin 2.8 g/dL (1.3-4.6) 07/23/23 09:15 Lipase 25 U/L (13-60) 07/23/23 09:15 Urine Color Yellow (Yellow) 07/23/23 09:08 Urine Appearance Clear (CLEAR) 07/23/23 09:08 Urine pH 7 (5-7) 07/23/23 09:08 Ur Specific [place] 1.010 (1.005-1.030) 07/23/23 09:08 Urine Protein Neg (Negative) 07/23/23 09:08 Urine Glucose (UA) Norm (Normal) 07/23/23 09:08 Urine Ketones Negative (Negative) 07/23/23 09:08 Urine Blood Neg (Negative) 07/23/23 09:08 Urine Nitrate Positive (Negative) H 07/23/23 09:08 Urine Bilirubin Neg (Negative) 07/23/23 09:08 Urine Urobilinogen Norm mg/dL (Negative) 07/23/23 09:08 Ur Leukocyte Esterase Negative (Negative) 07/23/23 09:08 Urine RBC None /hpf (0-2) 07/23/23 09:08 Urine WBC 5-10 /hpf (0-5) H 07/23/23 09:08 Ur Squamous Epith Cells 0-4 /hpf (0-5) H 07/23/23 09:08 Calcium Oxalate Crystal 0-4 /hpf H 07/23/23 09:08 Amorphous Sediment Not Reportable 07/23/23 09:08 Urine Bacteria 1+ /hpf (NONE) H 07/23/23 09:08 All radiology interpretation(s) finalized by discharge Discharge Plan Discharge Patient Disposition: Home Clinical Impression: Acute exacerbation of chronic obstructive airways disease, Cystitis Condition: Stable Prescriptions: New Macrobid 100 mg capsule 100 mg PO DAILY Qty: 14 0RF prednisone 20 mg tablet 20 mg PO TID Qty: 15 0RF Rx Instructions: 1 p.o. 3 times daily x3 days, 1 p.o. twice daily x2 days, 1 p.o. daily x2 days No Action baclofen 10 mg tablet 10 mg PO TID Qty: 90 5RF melatonin 3 mg Tablet 6 mg PO BEDTIME nitroglycerin [Nitrostat] 0.4 mg Tablet, Sublingual 0.4 mg SUBLINGUAL Q5M PRN (Reason: Chest Pain) Rx Instructions: do not exceed 3 doses per episode diphenhydramine-acetaminophen [Tylenol PM Extra Strength] 25-500 mg Tablet 2 tab PO BEDTIME furosemide [Lasix] 40 mg tablet 40 mg PO DAILY polyethylene glycol 3350 [Miralax] 17 gram powder in packet 17 g PO BEDTIME sertraline 100 mg tablet 100 mg PO DAILY@21 triamcinolone acetonide 0.1 % cream 1 applic topical BID PRN (Reason: Rash) budesonide [Pulmicort] 0.5 mg/2 mL suspension for nebulization 0.5 mg INHALATION BID PRN (Reason: unknown) quetiapine [Seroquel] 50 mg tablet 50 mg PO BEDTIME@21 lubiprostone [Amitiza] 24 mcg capsule 24 mcg PO BID@08 Eliquis 5 mg tablet 5 mg PO DAILY sennosides-docusate sodium [Stool Softener-Laxative] 8.6-50 mg Tablet 2 tab PO BID Qty: 60 0RF sulfamethoxazole-trimethoprim 800-160 mg tablet 1 tab PO BID omeprazole 40 mg capsule,delayed release(DR/EC) 40 mg PO DAILY tamsulosin 0.4 mg capsule 0.4 mg PO DAILY trazodone 100 mg tablet 250 mg PO BEDTIME Lidoderm 5 % Adhesive Patch,Medicated 1 patch TOPICAL DAILY Rx Instructions: leave on most painful area for up to 12 hrs gabapentin 300 mg capsule 300 mg PO BID Cymbalta 30 mg Capsule,Delayed Release(Dr/Ec) 30 mg PO DAILY quetiapine 50 mg tablet 50 mg PO Q8H PRN (Reason: Anxiety) lubiprostone 24 mcg capsule 24 mcg PO BID Symbicort 80-4.5 mcg/actuation Hfa Aerosol Inhaler 2 puff INHALATION BID Men's Multivitamin 400-20-300 mcg Tablet 1 tab PO DAILY metoprolol tartrate 100 mg tablet 100 mg PO DAILY Aspir-81 81 mg Tablet,Delayed Release (Dr/Ec) 81 mg PO DAILY Ativan 0.5 mg Tablet 0.5 mg PO Q4H PRN (Reason: Anxiety) hydralazine 50 mg Tablet 50 mg PO TID oxycodone 10 mg tablet 10 mg PO Q4H PRN (Reason: Pain) Discharge Orders: Discharge ED (Routine); Ordered 07/23/23 Ordered By: Abraham Griffin Referrals: Brisa Jensen FNP-C [Primary Care Provider] - Patient Instructions: Opioid Safety, Pain Management Activity Restrictions/Additional Instructions: Thank you for choosing [facility] for your healthcare needs today. Please realize this is an emergency room and that we are providing you with a medical screening exam and this may not be complete and all inclusive of all the testing and or work up that you may need to determine your ailment or severity of your illness. It is very important that you follow up as instructed or that you return to the Emergency Department should you have concerns or if your condition changes or worsens in any way. You were seen today for complaints of shortness of breath your sat was normal on room air given your medical history. You did have a mild cystitis. Recommend steroid taper aggressive use of nebulizers next few days. Your chest x-ray was unremarkable. You are also complained of some abdominal discomfort CT did not show any acute abnormalities. Coding Level of Care Code ED Electronic Systems Security Assessment for Katiuska Carter
--- NOTE | 2023-07-23 09:02 | ECG_ITS ---
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 Measurements Intervals [place] Rate: 59 P: 1 TX: 175 QRS: 14 QRSD: 117 T: 79 QT: 472 QTc: 469 Interpretive Statements SINUS BRADYCARDIA INCOMPLETE RIGHT BUNDLE BRANCH BLOCK [90+ ms QRS DURATION, TERMINAL R IN V1/V2, 40+ ms S IN I/aVL/V4/V5/V6] NONSPECIFIC T-WAVE ABNORMALITY PROLONGED QT INTERVAL Compared to ECG 09/29/2021 15:07:38 T-wave abnormality now present Sinus rhythm no longer present Ventricular premature complex(es) no longer present ST (T wave) deviation no longer present Electronically Signed On 07-24-2023 7:55:28 BENEFITS ANALYST by Stanford Fontanez M.D. [id number]
--- NOTE | 2023-07-23 09:20 | CTR_ITS ---
PROCEDURE INFORMATION: Exam: CT Abdomen And Pelvis Without Contrast Exam date and time: 07/23/2023 9:55 AM Age: 83 years old Clinical indication: Abdominal pain; Generalized TECHNIQUE: Imaging protocol: Computed tomography of the abdomen and pelvis without contrast. Radiation optimization: All CT scans at this facility use at least one of these dose optimization techniques: automated exposure control; mA and/or kV adjustment per patient size (includes targeted exams where dose is matched to clinical indication); or iterative reconstruction. COMPARISON: CT abdomen pelvis w con* [id number] 09/10/2020 1:23 AM RADIATION DOSE METRICS: Total DLP (mGy-cm): 1159.58 FINDINGS: Liver: Tiny cyst in the right hepatic lobe. Gallbladder and bile ducts: Cholecystectomy. Pancreas: Normal. No ductal dilation. Spleen: Normal. No splenomegaly. Adrenal glands: Normal. No mass. Kidneys and ureters: Normal. No hydronephrosis. Stomach and bowel: Unremarkable. No obstruction. No mucosal thickening. Appendix: No evidence of appendicitis. Intraperitoneal space: Unremarkable. No free air. No significant fluid collection. Vasculature: Heavy burden of atherosclerotic plaque in the abdominal aorta and branch vessels. No aneurysm. Lymph nodes: Unremarkable. No enlarged lymph nodes. Urinary bladder: Unremarkable as visualized. Reproductive: Prostatomegaly. Bones/joints: Right total hip arthroplasty. Osteopenia. Soft tissues: Postsurgical changes in the ventral abdominal wall. Tiny fat containing umbilical hernia. CT/CT abdomen pelvis con [id number] IMPRESSION: No acute findings.
[2023-07-23 09:28] LABS: Basophils # 0.1 10^3/uL (0.0-0.1); Eosinophils # 0.7 10^3/uL (0.0-0.8); Eosinophils % 11.3 %; Hematocrit 43.5 % (37-53); Lymphocytes # 1.5 10^3/uL (0.8-4.8); Mean Corpuscular Hemoglobin 29.1 pg (27-33); Mean Corpuscular Volume 93.8 fl (82-101); Mean Platelet Volume 9.8 fL (7.4-10.4); Monocytes # 0.6 10^3/uL (0.2-0.9); Monocytes % 10.3 %; Neutrophils # 3.27 10^3/uL (1.8-7.7); Neutrophils % 53.2 %; Nucleated Red Blood Cells % 0 %; Platelet Count 203 10^3/cmm (157-399); Red Blood Count 4.64 10^6/uL (3.85-5.65); Red Cell Distribution Width 16.4 % (12.1-15.1); White Blood Count 6.13 10^3/uL (3.29-11.43)
[2023-07-23] MEDS: hyDRALAzine 20 mg/mL INJ 1 mL 10 MG IVP (09:38)
[2023-07-23 09:41] LABS: Bilirubin Urine Neg (Negative); Blood Urine Neg (Negative); Glucose Urine UA Norm (Normal); Ketones Urine Negative (Negative); Nitrate Urine Positive (Negative); Protein Urine Neg (Negative); Urine Appearance Clear (CLEAR); Urine Color Yellow (Yellow); pH Urine 7 (5-7)
[2023-07-23 09:42] LABS: Add Urine Culture? No; Add Urine Microscopic? YES; Bacteria Urine 1+ /hpf; Calcium Oxalate Crystals Urine 0-4 /hpf; Leukocyte Esterase Urine Negative (Negative); Squamous Epithelial Cell Urine 0-4 /hpf (0-5); Urobilinogen Urine Norm (Negative)
[2023-07-23 09:45] LABS: Alanine Aminotransferase 17 U/L (0-41); Albumin Level 3.8 g/dL (3.5-5.2); Alkaline Phosphatase 80 U/L (40-130); Anion Gap 11.6 (5-19); Aspartate Amino Transferase 18 U/L (0-40); Blood Urea Nitrogen 13 mg/dL (8-23); Calcium 9.2 mg/dL (8.5-10.5); Carbon Dioxide 30 mmol/L (22-29); Chloride 101 mmol/L (98-107); Globulin 2.8 g/dL (1.3-4.6); Glucose 102 mg/dL (65-115); Lipase 25 U/L (13-60); Osmolality Calculated 286 mOsm/kg (285-295); Potassium 4.6 mmol/L (3.5-5.1); Sodium 138 mmol/L (136-145); Total Bilirubin 0.2 mg/dL (0.15-1.2); Total Protein 6.6 g/dL (6.6-8.7); Troponin(5th) Baseline 20 ng/L (0-15)
--- NOTE | 2023-07-23 10:34 | PC.PHAR ---
HAVE CALLED [facility] IN [place] TWO TIMES TO REQUEST A MAR FOR THIS PT- SPOKE TO ELVI
--- NOTE | 2023-07-23 10:57 | ECG_ITS ---
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 Measurements Intervals [place] Rate: 62 P: 52 FL: 231 QRS: 25 QRSD: 120 T: 54 QT: 453 QTc: 461 Interpretive Statements SINUS RHYTHM WITH FIRST DEGREE AV BLOCK POSSIBLE RIGHT VENTRICULAR CONDUCTION DELAY [RSR (QR) IN V1/V2] NONSPECIFIC T-WAVE ABNORMALITY Compared to ECG 07/23/2023 09:02:49 First degree AV block now present Sinus bradycardia no longer present Incomplete right bundle-branch block no longer present Prolonged QT interval no longer present T-wave abnormality still present Electronically Signed On 07-24-2023 8:03:50 MEDICAL DOCTOR MD by Stanford Fontanez M.D. [id number]
[2023-07-23 11:54] LABS: Troponin 5 2HR 17.34 ng/L (0-15)
[2023-07-23 12:08] LABS: Troponin 5 2HR Delta -2.66 ABS# (0-10)
[2023-07-23] MEDS: calcium carbonate 500 mg Chew Tablet 1000 MG PO (15:40)
--- NOTE | 2023-07-23 19:26 | PC.NURSE ---
Patient helped transferred to chair. Pt verbalized understanding to education to not attempt to get up on his own, and to utilize patient's call light that is lying beside patient.
[2023-07-24 00:25] VITALS: RESP 18; O2SAT 93
[2023-07-24] MEDS: oxyCODONE-APAP 5-325 mg Tablet 1 TAB PO (00:25)
[2023-07-24 00:26] VITALS: BP 189/88; PULSE 73; RESP 18; O2SAT 93
--- NOTE | 2023-07-24 00:33 | PC.NURSE ---
PATIENT ASKED IF HE COULD SIT ON SIDE OF BED. NURSE EDUCATED PATIENT TO NOT ATTEMPT TO STAND UP OR TRANSFER FROM BED TO CHAIR WITHOUT ASSISTANCE, AND USE CALL LIGHT THAT IS BY PATIENT. PATIENT VERBALIZED UNDERSTANDING TO EDUCATION GIVEN.
[2023-07-24 05:51] VITALS: RESP 18
[2023-07-24] MEDS: morphine 4 mg/mL SDV 1 mL IVP (05:51)
[2023-07-24 05:56] VITALS: PULSE 74; O2SAT 93
[2023-07-24] MEDS: apixaban 5 mg Tablet PO (06:01)
[2023-07-24] MEDS: FUROsemide 40 mg Tablet PO (06:01)
[2023-07-24] MEDS: pantoprazole DR 40 mg Tablet PO (06:01)
[2023-07-24] MEDS: hyDRALAzine 25 mg Tablet 50 MG PO (06:01)
[2023-07-24] MEDS: baclofen 10 mg Tablet PO (09:47)
== END 2023-07-24 13:15 | disposition home or self-care (01) ==
PROVIDERS: Emergency Provider Family Medicine; PCP Nurse Practitioner
DX: J44.1 Chronic obstructive pulmonary disease with (acute) exacerbation (principal); N30.90 Cystitis, unspecified without hematuria; Z79.01 Long term (current) use of anticoagulants; Z79.82 Long term (current) use of aspirin; Z87.891 Personal history of nicotine dependence; Z95.1 Presence of aortocoronary bypass graft; F03.90 Unspecified dementia, unspecified severity, without behavioral disturbance, psychotic disturbance, mood disturbance, and anxiety; I11.0 Hypertensive heart disease with heart failure; I50.9 Heart failure, unspecified; I43 Cardiomyopathy in diseases classified elsewhere; E78.5 Hyperlipidemia, unspecified; Z85.840 Personal history of malignant neoplasm of eye; I25.10 Atherosclerotic heart disease of native coronary artery without angina pectoris
CPT/HCPCS: 36415; 51798; 71045; 74176; 80053; 81001; 83690; 84484; 85025; 93005; 96374; 96375; 99285; J0360; J2270

== ENCOUNTER → 2023-08-03 11:25 | Outpatient (BNVA) | payer MEDICARE, MEDICAID, SELFPAY | PROVIDERS: PCP Internal Medicine; Visit Provider Nurse Practitioner | DX: M17.11 Unilateral primary osteoarthritis, right knee; Z01.818 Encounter for other preprocedural examination | CPT/HCPCS: 73560; 73565; 99214 ==

== ENCOUNTER 2023-10-26 08:15 | Outpatient (CLI) | payer MEDICARE, MEDICAID, SELFPAY ==
--- NOTE | 2023-10-26 08:21 | CT_ITS ---
WS: [id number] CT RIGHT KNEE, NONCONTRAST BETSY TECHNIQUE: Noncontrast CT of the RIGHT knee to include the RIGHT hip and ankle. CLINICAL INFORMATION: DJD KNEE COMPARISON: None. DLP: 1001.[address] scans at [facility] use at least one of these dose optimization techniques: automated e xposure control; mA and/or kV adjustment per patient size (includes targeted exams where dose is matc hed to clinical indication); or iterative reconstruction. 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 Joint space narrowing worse in t he lateral joint compartment. Hypertrophic changes along the joint line. Prior RIGHT DARWIN. Vascular ca lcification. Partially visualized postoperative changes of abdominal wall ventral hernia repair. Mild prostate enlargement measuring 4.7 cm. Recommend correlation PSA. Small lobulated popliteal cyst. Hypertrophic patella. Trace joint effusion. IMPRESSION: Images obtained for preoperative purposes.
== END 2023-10-26 08:16 | disposition home or self-care (01) ==
LOC: RAD 08:18
PROVIDERS: PCP Internal Medicine; Visit Provider Specialist
DX: M17.11 Unilateral primary osteoarthritis, right knee (principal)
CPT/HCPCS: 73700

== ENCOUNTER → 2023-11-21 09:18 | Outpatient (BNVA) | payer MEDICARE, MEDICAID, SELFPAY | PROVIDERS: PCP Internal Medicine; Visit Provider Family Medicine | DX: Z01.818 Encounter for other preprocedural examination (principal) | CPT/HCPCS: 80053; 81003; 85025 ==